=== PATIENT | female | born 1970 | race Hispanic/Latino ===

== ENCOUNTER 2017-07-18 14:14 | Emergency (ER) | payer OTHER, SELFPAY ==
--- NOTE | 2017-07-18 15:14 | RAD ---
FRONTAL RADIOGRAPH OF CHEST: Date: 07/18/17 COMPARISON: 02/17/17. HISTORY: Body aches with dysuria, headache, and chest pain. FINDINGS: No pneumothorax or pleural fluid. No focal consolidation or alveolar edema. Heart and mediastinal con tours are unremarkable. Osseous structures are unremarkable. IMPRESSION: No acute findings. POS: [facility]
[2017-07-18 15:15] LABS: Clarity Cloudy (Clear)
[2017-07-18 15:16] LABS: Bilirubin Small (Negative); Blood, Urine Negative (Negative); Glucose, Urine (Dipstick) 100 mg/dL (Negative); Leukocyte Trace (Negative); Nitrite Positive (Negative); Protein, Urine (Dipstick) 100 mg/dL (Neg-Trace); Specific Gravity, Urine 1.025 (1.002-1.036)
[2017-07-18 15:27] LABS: #Eosinphils 0.2 thou/uL (0.0-0.7); #Lymphocytes 3.2 thou/uL (1.20-3.40); #Monocytes 0.7 thou/uL (0.11-0.59); #Neutrophils 8.8 thou/uL (1.40-6.50); %Basophils 0.3 % (0.0-1.0); %Eosinophils 1.7 % (0.0-10.0); %Lymphocytes 24.8 % (21.0-51.0); %Monocytes 5.1 % (0.0-10.0); %Neutrophils 68.2 % (42.0-75.0); Hemoglobin 14.7 g/dL (12.0-16.0); Mean Corpuscular HGB CONC 32.5 g/dL (32.0-36.0); Mean Corpuscular Hemoglobin 27.9 pg (27.0-31.0); Mean Corpuscular Volume 85.9 fl (81.0-99.0); Mean Platelet Volume 7.6 fL (7.4-10.4); Platelet Count 291 thou/uL (130-400); RBC Distribution Width 12.8 % (11.5-14.5); Red Blood Cell (RBC) Count 5.26 mill/uL (4.20-5.40); White Blood Cell (WBC) Count 12.9 thou/uL (4.8-10.8)
[2017-07-18 15:34] LABS: Bacteria/HPF 4+ HPF (None Seen); Hyaline Casts/LPF 7-10 HYALINE CAST LPF (0-3 Hyaline); Pathc Cast-AUWi Flag 1.62 (0-2.49)
[2017-07-18] MEDS ORDERED: diphenhydrAMINE 50 MG/ML VIAL ONE (15:44)
[2017-07-18] MEDS ORDERED: Metoclopramide HCl 10 MG/2 ML VIAL ONE (15:44)
[2017-07-18] MEDS ORDERED: Ketorolac Tromethamine 30 MG/ML VIAL ONE (15:44)
[2017-07-18 15:50] LABS: ALT (SGPT) 17 U/L (8-55); AST (SGOT) 12 U/L (5-34); Albumin 3.3 g/dL (3.5-5.0); Alkaline Phosphatase 103 U/L (40-150); Anion Gap 12 mmol/L (10-20); BUN (Urea Nitrogen) 21 mg/dL (7.0-18.7); Bilirubin, Total 0.4 mg/dL (0.2-1.2); CK (CPK) 44 U/L (29-168); Calc. Creatinine Clearance 0 mL/min (70-130); Calcium 9.1 mg/dL (7.8-10.44); Carbon Dioxide 24 mmol/L (22-29); Chloride 103 mmol/L (98-107); Estimated GFR-MDRD 84; Globulin 3.5 g/dL (2.4-3.5); Glucose 206 mg/dL (70-105); Lipase 14 U/L (8-78); Protein, Total 6.8 g/dL (6.0-8.3); Sodium 135 mmol/L (136-145)
[2017-07-18 15:54] LABS: Troponin I Less than 0.010 ng/mL (< 0.028)
[2017-07-18] MEDS ORDERED: cefTRIAXone\\ROCEPHIN 2 GM in Sodium Chloride 0.9% 100 ML IVPB SCH (16:00)
== END 2017-07-18 17:21 | disposition home or self-care (01) ==
LOC: ERS 14:14
DX: N30.00 Acute cystitis without hematuria (principal); M79.1 Myalgia; E11.40 Type 2 diabetes mellitus with diabetic neuropathy, unspecified; F32.9 Major depressive disorder, single episode, unspecified; Z87.891 Personal history of nicotine dependence; Z79.4 Long term (current) use of insulin
CPT/HCPCS: 36415; 71045; 80053; 81003; 81015; 82550; 82553; 83690; 84484; 85025; 87077; 87086; 87186; 93005; 96361; 96365; 96375; J0696; J1200; J1885; J2765; J7050

== ENCOUNTER 2017-08-03 16:49 | Emergency (ER) | payer SELFPAY ==
[2017-08-03] MEDS ORDERED: Ondansetron ODT 4 MG TAB ONE (18:11)
[2017-08-03 18:13] LABS: #Basophils 0.1 thou/uL (0.0-0.2); #Eosinphils 0.2 thou/uL (0.0-0.7); #Lymphocytes 3.7 thou/uL (1.20-3.40); #Monocytes 0.6 thou/uL (0.11-0.59); #Neutrophils 5.9 thou/uL (1.40-6.50); %Basophils 0.7 % (0.0-1.0); %Eosinophils 2.2 % (0.0-10.0); %Lymphocytes 35.2 % (21.0-51.0); %Monocytes 5.7 % (0.0-10.0); %Neutrophils 56.3 % (42.0-75.0); Hemoglobin 13.8 g/dL (12.0-16.0); Mean Corpuscular HGB CONC 33.2 g/dL (32.0-36.0); Mean Corpuscular Hemoglobin 28.1 pg (27.0-31.0); Mean Corpuscular Volume 84.7 fl (81.0-99.0); Mean Platelet Volume 7.8 fL (7.4-10.4); Platelet Count 285 thou/uL (130-400); RBC Distribution Width 12.5 % (11.5-14.5); Red Blood Cell (RBC) Count 4.89 mill/uL (4.20-5.40); White Blood Cell (WBC) Count 10.5 thou/uL (4.8-10.8)
[2017-08-03] MEDS ORDERED: Pregabalin 50 MG CAP PO SCH (18:15)
[2017-08-03 18:20] LABS: Bilirubin Negative (Negative); Blood, Urine Negative (Negative); Clarity CLEAR (Clear); Glucose, Urine (Dipstick) >=1000 mg/dL (Negative); Leukocyte Negative (Negative); Nitrite Negative (Negative); Protein, Urine (Dipstick) Negative (Neg-Trace); Specific Gravity, Urine 1.021 (1.002-1.036); Urobilinogen 0.2 mg/dL (0.2-1.0); pH, Urine 6.5 (5.0-9.0)
[2017-08-03 18:29] LABS: Anion Gap 13 mmol/L (10-20); BUN (Urea Nitrogen) 12 mg/dL (7.0-18.7); Calc. Creatinine Clearance 0 mL/min (70-130); Calcium 8.8 mg/dL (7.8-10.44); Carbon Dioxide 23 mmol/L (22-29); Chloride 103 mmol/L (98-107); Estimated GFR-MDRD 85; Glucose 326 mg/dL (70-105); Magnesium 1.9 mg/dL (1.6-2.6); Potassium 3.6 mmol/L (3.5-5.1); Sodium 135 mmol/L (136-145)
== END 2017-08-03 19:57 | disposition home or self-care (01) ==
LOC: ERS 16:49
DX: E11.40 Type 2 diabetes mellitus with diabetic neuropathy, unspecified (principal); Z79.4 Long term (current) use of insulin; Z87.891 Personal history of nicotine dependence
CPT/HCPCS: 36415; 36416; 80048; 81003; 83735; 85025; 87077; 87086; 96372; Q0162

== ENCOUNTER 2017-11-29 15:21 | Emergency (ER) | payer SELFPAY ==
[2017-11-29 15:53] LABS: Bilirubin Negative (Negative); Blood, Urine Negative (Negative); Clarity CLEAR (Clear); Glucose, Urine (Dipstick) >=1000 mg/dL (Negative); Leukocyte Negative (Negative); Nitrite Negative (Negative); Protein, Urine (Dipstick) 30 mg/dL (Neg-Trace); Urobilinogen 0.2 mg/dL (0.2-1.0)
[2017-11-29 15:54] LABS: Bacteria/HPF Rare-Few HPF (None Seen); Hyaline Casts/LPF 0-3 HYALINE CAST LPF (0-3 Hyaline); Pathc Cast-AUWi Flag 1.01 (0-2.49); RBC/HPF 0-3 HPF (0-3)
[2017-11-29 15:55] LABS: Specific Gravity, Urine 1.041 (1.002-1.036)
[2017-11-29 15:58] LABS: #Basophils 0.1 thou/uL (0.0-0.2); #Eosinphils 0.2 thou/uL (0.0-0.7); #Lymphocytes 3.7 thou/uL (1.20-3.40); #Monocytes 0.6 thou/uL (0.11-0.59); #Neutrophils 8.8 thou/uL (1.40-6.50); %Basophils 0.8 % (0.0-1.0); %Eosinophils 1.5 % (0.0-10.0); %Lymphocytes 27.8 % (21.0-51.0); %Monocytes 4.6 % (0.0-10.0); %Neutrophils 65.3 % (42.0-75.0); Hemoglobin 13.2 g/dL (12.0-16.0); Mean Corpuscular HGB CONC 33.6 g/dL (32.0-36.0); Mean Corpuscular Hemoglobin 28.1 pg (27.0-31.0); Mean Corpuscular Volume 83.6 fl (81.0-99.0); Mean Platelet Volume 8.5 fL (7.4-10.4); Platelet Count 255 thou/uL (130-400); RBC Distribution Width 12.9 % (11.5-14.5); Red Blood Cell (RBC) Count 4.71 mill/uL (4.20-5.40); White Blood Cell (WBC) Count 13.4 thou/uL (4.8-10.8)
[2017-11-29 16:19] LABS: ALT (SGPT) 17 U/L (8-55); AST (SGOT) 12 U/L (5-34); Albumin 3.6 g/dL (3.5-5.0); Alkaline Phosphatase 113 U/L (40-150); Anion Gap 9 mmol/L (10-20); BUN (Urea Nitrogen) 19 mg/dL (7.0-18.7); Bilirubin, Total 0.5 mg/dL (0.2-1.2); CK (CPK) 54 U/L (29-168); Calc. Creatinine Clearance 0 mL/min (70-130); Calcium 9.1 mg/dL (7.8-10.44); Carbon Dioxide 30 mmol/L (22-29); Chloride 98 mmol/L (98-107); Estimated GFR-MDRD 72; Globulin 3.6 g/dL (2.4-3.5); Glucose 409 mg/dL (70-105); Protein, Total 7.2 g/dL (6.0-8.3); Sodium 133 mmol/L (136-145)
[2017-11-29 16:22] LABS: CKMB 1.2 ng/mL (0-6.6); Troponin I Less than 0.010 ng/mL (< 0.028)
[2017-11-29] MEDS ORDERED: Insulin Regular 300 UNITS/3 ML VIAL ONE (16:54)
[2017-11-29 17:00] LABS: BHCG - Serum Negative (NEGATIVE); Pregs Control Background? CLEAR/WHITE (CLR/WHITE); Pregs Control Bar Appear? YES (CONTROL BAR)
== END 2017-11-29 18:52 | disposition home or self-care (01) ==
LOC: ERS 15:21
DX: E11.65 Type 2 diabetes mellitus with hyperglycemia (principal); E11.40 Type 2 diabetes mellitus with diabetic neuropathy, unspecified; F32.9 Major depressive disorder, single episode, unspecified; Z79.899 Other long term (current) drug therapy; Z79.4 Long term (current) use of insulin
CPT/HCPCS: 36415; 36416; 80053; 81003; 81015; 82010; 82553; 83605; 84484; 84703; 85025; 93005; 94760; 96361; 96374; J1815

== ENCOUNTER 2017-12-14 13:46 | Emergency (ER) | payer SELFPAY ==
[2017-12-14 14:33] LABS: #Basophils 0.1 thou/uL (0.0-0.2); #Eosinphils 0.3 thou/uL (0.0-0.7); #Lymphocytes 3.5 thou/uL (1.20-3.40); #Monocytes 0.6 thou/uL (0.11-0.59); #Neutrophils 10.4 thou/uL (1.40-6.50); %Basophils 0.7 % (0.0-1.0); %Eosinophils 1.8 % (0.0-10.0); %Lymphocytes 23.7 % (21.0-51.0); %Monocytes 3.9 % (0.0-10.0); %Neutrophils 69.9 % (42.0-75.0); Hemoglobin 13.9 g/dL (12.0-16.0); Mean Corpuscular HGB CONC 33.8 g/dL (32.0-36.0); Mean Corpuscular Hemoglobin 27.6 pg (27.0-31.0); Mean Corpuscular Volume 81.8 fl (81.0-99.0); Platelet Count 258 thou/uL (130-400); RBC Distribution Width 13.1 % (11.5-14.5); Red Blood Cell (RBC) Count 5.01 mill/uL (4.20-5.40); White Blood Cell (WBC) Count 14.9 thou/uL (4.8-10.8)
[2017-12-14] MEDS ORDERED: Insulin Regular 300 UNITS/3 ML VIAL ONE (14:37)
[2017-12-14 14:57] LABS: CKMB 0.6 ng/mL (0-6.6); Troponin I Less than 0.010 ng/mL (< 0.028)
[2017-12-14 15:04] LABS: ALT (SGPT) 15 U/L (8-55); AST (SGOT) 12 U/L (5-34); Albumin 3.5 g/dL (3.5-5.0); Alkaline Phosphatase 111 U/L (40-150); Anion Gap 15 mmol/L (10-20); BUN (Urea Nitrogen) 23 mg/dL (7.0-18.7); Bilirubin, Total 0.4 mg/dL (0.2-1.2); Calc. Creatinine Clearance 0 mL/min (70-130); Calcium 8.9 mg/dL (7.8-10.44); Carbon Dioxide 21 mmol/L (22-29); Chloride 99 mmol/L (98-107); Estimated GFR-MDRD 53; Globulin 3.5 g/dL (2.4-3.5); Glucose 439 mg/dL (70-105); Potassium 4.3 mmol/L (3.5-5.1); Sodium 131 mmol/L (136-145)
--- NOTE | 2017-12-14 15:21 | CT ---
CT HEAD NONCONTRAST: HISTORY: Syncope. COMPARISON: 02/01/17. FINDINGS: There is no evidence of acute intracranial hemorrhage or infarct. Ventricles appear normal in size, shape, and position. There is no mass effect or shift of midline structures. Visualized paranasal s inuses remain well aerated. IMPRESSION: No acute intracranial abnormalities are demonstrated on noncontrast CT head. POS: [facility]
[2017-12-14 16:32] LABS: Bilirubin Negative (Negative); Blood, Urine Negative (Negative); Clarity CLEAR (Clear); Glucose, Urine (Dipstick) >=1000 mg/dL (Negative); Leukocyte Negative (Negative); Nitrite Negative (Negative); Protein, Urine (Dipstick) Trace mg/dL (Neg-Trace); Specific Gravity, Urine 1.036 (1.002-1.036); Urobilinogen 0.2 mg/dL (0.2-1.0)
[2017-12-14 16:35] LABS: Pregnancy Test - Urine (BHCG) Negative (Negative); Pregu Control Background? CLEAR/WHITE (CLR/WHITE); Pregu Control Bar Appear? YES (CONTROL BAR); Specific Gravity 1.036 (1.002-1.036)
== END 2017-12-14 17:47 | disposition home or self-care (01) ==
LOC: ERS 13:46
DX: E11.65 Type 2 diabetes mellitus with hyperglycemia (principal); R55 Syncope and collapse; E11.40 Type 2 diabetes mellitus with diabetic neuropathy, unspecified; G43.909 Migraine, unspecified, not intractable, without status migrainosus; F32.9 Major depressive disorder, single episode, unspecified; F17.210 Nicotine dependence, cigarettes, uncomplicated; Z79.4 Long term (current) use of insulin; Z79.899 Other long term (current) drug therapy
CPT/HCPCS: 36415; 36416; 70450; 80053; 81003; 81025; 82010; 82553; 84484; 85025; 93005; 96361; 96372; 96374; J1815

== ENCOUNTER 2018-11-28 22:08 | Inpatient (IN) | payer SELFPAY ==
[~2018-11-28 22:08] MED LIST: ISOVUE-370 76%-LOCM 1 ML ONE
[2018-11-28] MEDS ORDERED: Ondansetron PF 4 MG/2 ML Vial ONE (22:33)
[2018-11-28] MEDS ORDERED: Morphine 4 MG/ML VIAL ONE ×2 (22:33→23:29)
[2018-11-28 23:01] LABS: BHCG - Serum Negative (NEGATIVE); Pregs Control Background? CLEAR/WHITE (CLR/WHITE); Pregs Control Bar Appear? YES (CONTROL BAR)
[2018-11-28 23:06] LABS: ALT (SGPT) 43 U/L (8-55); AST (SGOT) 44 U/L (5-34); Albumin 3.5 g/dL (3.5-5.0); Alkaline Phosphatase 234 U/L (40-150); Anion Gap 17 mmol/L (10-20); BUN (Urea Nitrogen) 19 mg/dL (7.0-18.7); Bilirubin, Total 0.8 mg/dL (0.2-1.2); Calc. Creatinine Clearance 0 mL/min (70-130); Carbon Dioxide 25 mmol/L (22-29); Chloride 90 mmol/L (98-107); Estimated GFR-MDRD 51; Glucose 423 mg/dL (70-105); Lipase 7 U/L (8-78); Protein, Total 7.5 g/dL (6.0-8.3); Sodium 128 mmol/L (136-145)
[2018-11-28 23:19] LABS: Mean Corpuscular Volume 81.4 fL (78.0-98.0)
[2018-11-28 23:20] LABS: Band 13 % (5-11); Hemoglobin 13.9 g/dL (12.0-16.0); Lymphocytes 14 % (21-51); MDiff Complete? YES; Mean Corpuscular HGB CONC 33.2 g/dL (32.0-36.0); Mean Platelet Volume 8.9 fL (7.4-10.4); Monocytes 3 % (0-10); Neutrophil 70 % (42-75); Platelet Count 252 thou/uL (130-400); Platelet Morphology Comment Appears Adequate; RBC Distribution Width 12.6 % (11.5-14.5); Red Blood Cell (RBC) Count 5.14 mill/uL (4.20-5.40); White Blood Cell (WBC) Count 20.3 thou/uL (4.8-10.8)
--- NOTE | 2018-11-28 23:31 | RAD ---
AP view chest. HISTORY: Chest pain shortness of breath. AP view chest obtained. The lungs are well aerated. No evidence of active intrathoracic disease seen. No evidence of effusions, pneumonia or pneumothorax seen. Impression: Unremarkable AP view chest.
--- NOTE | 2018-11-28 23:39 | CT ---
Noncontrast enhanced images abdomen pelvis. HISTORY: Epigastric pain for 4 days. Noncontrast enhanced images of the abdomen pelvis obtained. Unfortunately IV and oral contrast was not given. This does decrease the sensitivity for detection of pathology. The lung bases are unremarkable. No evidence of free intraperitoneal air seen. The liver and spleen are unremarkable. The gallbladder and pancreas are unremarkable. Adrenal glands unremarkable. The right kidney is unremarkable. The left kidney has a area of midpole asymmetric density with surrounding fat stranding. This may rep resent a subcapsular hematoma or possible infection. Further evaluation using contrast-enhanced CT images recommended when the patient is appropriately premedicated. I cannot exclude hematoma or absce ss in this region correlate with clinical exam, medical history and possible laboratory evaluation. No evidence of renal calculi or evidence of hydronephrosis or obstructing calculi seen. The small bowel is unremarkable. No significant evidence of colonic abnormality seen. IMPRESSION: Mid pole left subcapsular hematoma versus possible infection.
[2018-11-28] MEDS ORDERED: Acetaminophen 500 MG TAB ONE (23:56)
[2018-11-28] MEDS ORDERED: Famotidine/PF 20 mg/2ml Vial ONE (23:56)
[2018-11-28] MEDS ORDERED: diphenhydrAMINE 50 MG/ML VIAL ONE (23:56)
[2018-11-28] MEDS ORDERED: methylPREDNISolone Sod Succ/PF 125 MG/2 ML VIAL ONE (23:56)
[2018-11-28] MEDS ORDERED: Piperacillin/Tazobactam 4.5 GM VIAL ONE (23:56)
[2018-11-29] MEDS ORDERED: Insulin Regular 300 UNITS/3 ML VIAL ONE (00:29)
[2018-11-29 02:26] VITALS: BMI 39.7
[2018-11-29] MEDS ORDERED: Sodium Chloride 0.9% 1,000 ML IV SCH (04:15)
[2018-11-29] MEDS ORDERED: Piperacillin/Tazobactam 4.5 GM in Sodium Chloride 0.9% 100 ML IVPB SCH ×2 (06:00→20:15)
[2018-11-29 06:11] LABS: Bilirubin Negative (Negative); Blood, Urine Moderate (Negative); Clarity CLEAR (Clear); Glucose, Urine (Dipstick) >=1000 mg/dL (Negative); Leukocyte Small (Negative); Nitrite Negative (Negative); Protein, Urine (Dipstick) 100 mg/dL (Neg-Trace)
[2018-11-29 06:15] LABS: Bacteria/HPF Rare-Few HPF (None Seen); Hyaline Casts/LPF 0-3 HYALINE CAST LPF (0-3 Hyaline); Specific Gravity, Urine 1.044 (1.002-1.036); Squamous Epithelial 0-3 HPF (0-3); WBC/HPF 21-50 HPF (0-3)
[2018-11-29 06:16] LABS: Urine Culture Reflex Yes Yes
--- NOTE | 2018-11-29 08:19 | ULT ---
RIGHT UPPER QUADRANT ULTRASOUND: Date: 11/28/18 INDICATION: Fever and right upper quadrant pain. COMPARISON: CT abdomen and pelvis dated 11/29/18. FINDINGS: No focal hepatic lesion evident. Visualized pancreas and gallbladder are normal appearing. No sonogra phic Fortune's sign reported. Common bile duct measures 4.4 mm. Right kidney measures 12.3 x 4.5 x 5.2 cm. No focal renal lesion or hydronephrosis is evident. IMPRESSION: No acute sonographic abnormality within the right upper quadrant. POS: [facility]
--- NOTE | 2018-11-29 08:48 | CT ---
PRELIMINARY REPORT/[facility]/EMERGENCY AFTER HOURS PROCEDURE: EXAM: CT Abdomen and Pelvis With Contrast EXAM DATE/TIME: 11/29/2018 12:38 AM CLINICAL HISTORY: 48 years old, female; Abdominal pain; Patient HX: F48 presents sto the ED for evaluation of epigastri c pain onset x4 days ago. PT. Reports associated SOB, cough, and n/v today. PT. Reports chest tightne ss but denies pain. PT. Denies diarrhea. PT. Reports taking ibuprofen without relief TECHNIQUE: Imaging protocol: Axial computed tomography images of the abdomen and pelvis with intravenous contras t. Coronal reformatted images were created and reviewed. COMPARISON: US Gallbladder RUQ 11/28/2018 11:57 PM FINDINGS: ABDOMEN: Liver: Normal. Gallbladder and bile ducts: Normal. Pancreas: Normal. Spleen: Normal. Adrenals: Normal. Kidneys and ureters: 13 mm hypodense focus within the periphery of the right renal upper pole (series 2, image 36), not definitively characterized on this study. 2.7 x 2.0 cm slightly heterogeneous, par tially exophytic lesion arising from the periphery of the left renal mid pole (series 2, image 39), w ith small amount of adjacent slightly hyperdense fluid and stranding. Stomach and bowel: Normal. Appendix: Appendix normal. PELVIS: Bladder: Unremarkable as visualized. Reproductive: Unremarkable as visualized. ABDOMEN and PELVIS: Intraperitoneal space: Normal. No free air. No significant fluid collection. Bones/joints: Multilevel thoracolumbar spine degenerative changes. Bilateral L5 pars defects. Soft tissues: Small fat containing umbilical hernia. Vasculature: Multiple phleboliths within the pelvis. Lymph nodes: Normal. No enlarged lymph nodes. IMPRESSION: 1. 2.7 x 2.0 cm slightly heterogeneous, partially exophytic lesion arising from the periphery of the left renal mid pole (series 2, image 39), with small amount of adjacent slightly hyperdense fluid and stranding. Finding may represent ruptured complicated cyst or possibly renal carcinoma. Recommend fu rther evaluation with dedicated renal ultrasound, CT, or MRI. 2. 13 mm hypodense focus within the periphery of the right renal upper pole (series 2, image 36), not definitively characterized on this study. Recommend further evaluation with dedicated renal ultrasou nd, CT, or MRI. Thank you for allowing us to participate in the care of your patient. Dictated and Authenticated by: Alfred King MD 11/29/2018 1:49 AM Central Time ([place] & [place]) FINAL REPORT EMERGENCY AFTER HOURS CT ABDOMEN AND PELVIS: Date: 11/28/18 IMPRESSION: I agree with the preliminary report provided by [facility]. There are complex lesions involving the left an d right kidneys that require further evaluation. CT evaluation with a multiphase renal mass protocol would be most helpful. Recommend correlation with clinical exam for symptoms and signs of possible py elonephritis and renal abscess. Correlation with urinary laboratories recommended. POS: [facility]
[2018-11-29] MEDS ORDERED: Guaifenesin DM 100-10/5 ML UDCUP PO PRN (08:56)
[2018-11-29] MEDS ORDERED: Dextrose 5% in Water 1,000 ML IV PRN (08:59)
[2018-11-29] MEDS ORDERED: Dextrose 50% Abboject 50 ML SYRINGE SLOW IVP PRN (08:59)
[2018-11-29] MEDS: Ondansetron PF 4 MG/2 ML Vial IVP PRN ×2 (09:36→22:10)
[2018-11-29] MEDS: Sodium Chloride 0.9% 1,000 ML IV SCH ×2 (10:31→20:11)
--- NOTE | 2018-11-29 10:41 | ULT ---
Renal sonogram HISTORY: Fever. Pyelonephritis. Abnormal CT exam. FINDINGS: Right kidney is 13.1 cm in length and left is 12.1 cm. No hydronephrosis. No masses apparen t. Exams correlated with recent CT where abnormality was seen on the kidneys. The area of masslike fluid along the lateral margin of the left kidney is not discernible sonographically. Urinary bladder is incompletely distended. IMPRESSION: No sonographic abnormalities of the kidneys are apparent. For follow-up, CT will be requi red.
--- NOTE | 2018-11-29 11:48 | PDOC.PN ---
- Subjective Encounter Start Date: 11/29/18 Encounter Start Time: 11:47 - Objective Vital Signs & Weight: Vital Signs (12 hours) Temp Pulse Resp BP Pulse Ox 11/29/18 11:00 97.7 F 63 18 109/73 98 11/29/18 07:15 97.8 F 72 18 109/71 96 11/29/18 04:00 97.8 F 75 16 115/74 95 11/29/18 02:34 96 11/29/18 02:26 99.3 F 75 16 114/76 96 Weight Weight 210 lb 9 oz I&O: 11/28/18 11/29/18 11/30/18 06:59 06:59 06:59 Intake Total 1080 Balance 1080 Result Diagrams: 11/28/18 22:37 11/28/18 22:37 Additional Labs: Accuchecks 11/29/18 11/29/18 11/28/18 05:42 01:01 22:37 POC Glucose 454 H 400 H 418 H Dx/Plan - Plan * .
--- NOTE | 2018-11-29 11:52 | PDOC.EVN ---
Event Note - Event Note Event Note: H&P #[id number]
[2018-11-29] MEDS: Acetaminophen 325 MG TAB PO PRN ×2 (12:55→22:10)
[2018-11-29] MEDS: HumaLOG 300 UNITS/3 ML VIAL SC PRN ×3 (12:57→20:15)
[2018-11-29] MEDS ORDERED: HumaLOG 300 UNITS/3 ML VIAL SC SCH (13:00)
[2018-11-29] MEDS: Morphine 2 MG/ML SYRINGE SLOW IVP PRN ×2 (13:24→20:22)
--- NOTE | 2018-11-29 14:09 | RAD ---
EXAM: Single view of the abdomen HISTORY: Abdominal pain COMPARISON: None FINDINGS: Single view of the abdomen shows a nonspecific, nonobstructive bowel gas pattern. No suspi cious calcifications are seen. The bones are unremarkable. IMPRESSION: Unremarkable exam
--- NOTE | 2018-11-29 18:58 | HP ---
ADMITTING COMPLAINT: Fevers and back pain. HISTORY OF PRESENT ILLNESS: This is a 48-year-old female complaining of back pain and fevers. Stated that the symptoms started approximately 2 to 3 days ago, was having it for the first time, has never happened to her before, was admitted to the Internal Medicine team overnight. I am seeing her about 12 hours after admission. is at bedside. The patient was found to have possibly a ruptured cyst in the kidneys, also significantly elevated diabetes. The patient states this has never happened to her before. Denies any other alleviating or aggravating factors. No other complaints. No prior past medical history that she states she is aware of except for high blood pressure, diabetes, and neuropathy. The patient is seen and examined at bedside. is at bedside. All questions answered. ALLERGIES: IODINE. PAST MEDICAL HISTORY: Diabetes, hypertension, hyperlipidemia, neuropathy. SOCIAL HISTORY: Nondrinker and nonsmoker. REVIEW OF SYSTEMS: All systems reviewed pertinent positives in HPI, otherwise negative. HOME MEDICATIONS: See MAR. PHYSICAL EXAMINATION: VITAL SIGNS: Blood pressure 109/73, temperature 97.7, heart rate of 63, respiratory rate of 18, and O2 saturation 98% on room air. GENERAL: The patient is lying in bed. No acute discomfort. Obese. HEENT: Pupils equal, round, and reactive to light and accommodation. Extraocular muscles intact. Oral cavity moist and pink. NECK: Supple, mobile, and nontender thyroid. PULMONARY: Clear to auscultation bilaterally. No respiratory distress. CARDIOVASCULAR: Regular rate and rhythm. S1 and S2. No murmurs, rubs, or gallops appreciated. ABDOMEN: Positive bowel sounds. Rotund, nondistended, nontender. EXTREMITIES: 2+ peripheral pulses. Trace pitting edema noted. LABORATORY DATA: Reviewed. CT scan findings reviewed. ASSESSMENT: 1. Urinary tract infection with sepsis. 2. Leukocytosis. 3. Pseudohyponatremia secondary to hyperglycemia. 4. Diabetes mellitus, uncontrolled. 5. Ruptured cyst versus renal mass. PLAN: Admit the patient to Internal Medicine Team. At this point in time, we will obtain a renal ultrasound, isolated for the kidneys to have the radiologist compare between the kidney ultrasound as well as CT scan of the abdomen. Continue the antibiotics. Cultures were drawn and pending. Labs in the a.m. The patient wishes to remain in full code. Case and plan discussed with the patient and at length. They understood and agreed with this plan. Job ID: [id number]
[2018-11-29] MEDS: Pregabalin 75 MG CAP PO SCH (20:13)
[2018-11-29] MEDS ORDERED: Insulin Glargine 5 UNITS in Pre-Filled Syringe 1 EACH SC SCH (21:00)
[2018-11-29] MEDS ORDERED: Insulin Glargine 10 UNITS in Pre-Filled Syringe 1 EACH SC SCH (21:00)
[2018-11-30] MEDS: Sodium Chloride 0.9% 1,000 ML IV SCH ×3 (04:57→14:46)
[2018-11-30] MEDS: Piperacillin/Tazobactam 4.5 GM in Sodium Chloride 0.9% 100 ML IVPB SCH ×3 (05:20→20:07)
[2018-11-30] MEDS: HumaLOG 300 UNITS/3 ML VIAL SC PRN ×4 (05:21→20:10)
[2018-11-30 06:04] LABS: #Basophils 0.1 thou/uL (0.0-0.2); #Eosinphils 0.1 thou/uL (0.0-0.7); #Lymphocytes 2.8 thou/uL (1.20-3.40); #Monocytes 1.2 thou/uL (0.11-0.59); #Neutrophils 17.3 thou/uL (1.40-6.50); %Basophils 0.3 % (0.0-1.0); %Eosinophils 0.5 % (0.0-10.0); %Lymphocytes 13.2 % (21.0-51.0); %Monocytes 5.7 % (0.0-10.0); %Neutrophils 80.3 % (42.0-75.0); Hemoglobin 10.9 g/dL (12.0-16.0); Mean Corpuscular HGB CONC 33.6 g/dL (32.0-36.0); Mean Corpuscular Hemoglobin 27.8 pg (27.0-31.0); Mean Corpuscular Volume 82.6 fL (78.0-98.0); Mean Platelet Volume 9.4 fL (7.4-10.4); Platelet Count 226 thou/uL (130-400); RBC Distribution Width 12.4 % (11.5-14.5); Red Blood Cell (RBC) Count 3.91 mill/uL (4.20-5.40); White Blood Cell (WBC) Count 21.5 thou/uL (4.8-10.8)
[2018-11-30 06:12] LABS: Anion Gap 13 mmol/L (10-20); BUN (Urea Nitrogen) 15 mg/dL (7.0-18.7); Calc. Creatinine Clearance 134 mL/min (70-130); Calcium 8.1 mg/dL (7.8-10.44); Carbon Dioxide 21 mmol/L (22-29); Chloride 105 mmol/L (98-107); Estimated GFR-MDRD 78; Glucose 314 mg/dL (70-105); Potassium 3.7 mmol/L (3.5-5.1); Sodium 135 mmol/L (136-145)
[2018-11-30] MEDS: Pregabalin 75 MG CAP PO SCH ×2 (08:20→20:08)
[2018-11-30] MEDS: Vancomycin HCl 1.25 GM in Sodium Chloride 0.9% 250 ML 250 ML IVPB SCH ×2 (08:21→22:05)
--- NOTE | 2018-11-30 12:36 | PDOC.PN ---
- Subjective Encounter Start Date: 11/30/18 Encounter Start Time: 12:34 Patient seen and examined, no new issues. States she feels much better. Family at bedside, all questions answered. - Objective Vital Signs & Weight: Vital Signs (12 hours) Temp Pulse Resp BP Pulse Ox 11/30/18 08:25 95 11/30/18 07:17 97.7 F 62 18 98/65 95 Weight Admit Weight 210 lb Weight 210 lb 9 oz I&O: 11/29/18 11/30/18 12/01/18 06:59 06:59 06:59 Intake Total 1080 3420 Balance 1080 3420 Result Diagrams: 11/30/18 05:35 11/30/18 05:35 Additional Labs: Accuchecks 11/30/18 11/30/18 11/30/18 11:33 05:22 00:26 POC Glucose 334 H 329 H 389 H 11/29/18 11/29/18 19:10 16:22 POC Glucose 443 H 525 H Phys Exam - Physical Examination Constitutional: NAD HEENT: PERRLA, moist MMs, sclera anicteric Neck: no nodes, no JVD, supple Respiratory: no wheezing, no rales, no rhonchi Cardiovascular: RRR, no significant murmur, no rub Gastrointestinal: soft, non-tender, no distention Musculoskeletal: no edema, pulses present Dx/Plan (1) Ruptured cyst of kidney Code(s): Q61.00 - CONGENITAL RENAL CYST, UNSPECIFIED Status: Acute (2) Sepsis Code(s): A41.9 - SEPSIS, UNSPECIFIED ORGANISM Status: Acute (3) Urinary tract infection Status: Acute (4) Leukocytosis Code(s): D72.829 - ELEVATED WHITE BLOOD CELL COUNT, UNSPECIFIED Status: Acute - Plan * The patient doesn't appear to have renal cell cancer, multiple images done, I think the patient likely had an infected cyst which may have ruptured, cont current abx for now * cultures pending * WBC high, but patient is symptomatically feeling much better * will repeat labs in AM * advance diet * cont IV abx for now * case and plan d/w patient and at length, they understood and agreed with this plan.
[2018-11-30] MEDS: Morphine 2 MG/ML SYRINGE SLOW IVP PRN ×2 (13:02→20:19)
[2018-11-30] MEDS: Acetaminophen 325 MG TAB PO PRN (18:34)
[2018-11-30] MEDS: Loperamide HCl 2 MG CAP PO PRN (18:34)
[2018-11-30] MEDS: Insulin Glargine 15 UNITS in Pre-Filled Syringe 1 EACH SC SCH (20:08)
[2018-12-01] MEDS: Sodium Chloride 0.9% 1,000 ML IV SCH ×3 (00:11→20:55)
[2018-12-01] MEDS: Piperacillin/Tazobactam 4.5 GM in Sodium Chloride 0.9% 100 ML IVPB SCH (04:52)
[2018-12-01] MEDS: Morphine 2 MG/ML SYRINGE SLOW IVP PRN ×3 (04:52→20:53)
[2018-12-01] MEDS: HumaLOG 300 UNITS/3 ML VIAL SC PRN ×4 (04:55→20:55)
[2018-12-01 06:06] LABS: #Basophils 0.1 thou/uL (0.0-0.2); #Eosinphils 0.2 thou/uL (0.0-0.7); #Lymphocytes 2.8 thou/uL (1.20-3.40); #Monocytes 1.1 thou/uL (0.11-0.59); #Neutrophils 11.1 thou/uL (1.40-6.50); %Basophils 0.5 % (0.0-1.0); %Eosinophils 1.3 % (0.0-10.0); %Monocytes 7.2 % (0.0-10.0); %Neutrophils 72.9 % (42.0-75.0); Hemoglobin 12.3 g/dL (12.0-16.0); Mean Corpuscular HGB CONC 31.7 g/dL (32.0-36.0); Mean Corpuscular Hemoglobin 26.5 pg (27.0-31.0); Mean Corpuscular Volume 83.7 fL (78.0-98.0); Mean Platelet Volume 9.2 fL (7.4-10.4); Platelet Count 245 thou/uL (130-400); RBC Distribution Width 12.5 % (11.5-14.5); Red Blood Cell (RBC) Count 4.63 mill/uL (4.20-5.40); White Blood Cell (WBC) Count 15.2 thou/uL (4.8-10.8)
[2018-12-01 06:27] LABS: Anion Gap 14 mmol/L (10-20); BUN (Urea Nitrogen) 12 mg/dL (7.0-18.7); Calc. Creatinine Clearance 128 mL/min (70-130); Calcium 8.6 mg/dL (7.8-10.44); Carbon Dioxide 23 mmol/L (22-29); Chloride 107 mmol/L (98-107); Estimated GFR-MDRD 74; Glucose 205 mg/dL (70-105); Sodium 141 mmol/L (136-145)
[2018-12-01] MEDS: Pregabalin 75 MG CAP PO SCH ×2 (08:01→20:55)
[2018-12-01] MEDS ORDERED: Potassium Chloride 20 MEQ TAB PO SCH (09:15)
--- NOTE | 2018-12-01 09:20 | PDOC.PN ---
- Subjective Encounter Start Date: 12/01/18 Encounter Start Time: 12:00 Subjective: Patient feeling somewhat better. Still dizzy with movement, poor -: appetite, weak. No fever. No N/V. - Objective MAR Reviewed: Yes Vital Signs & Weight: Vital Signs (12 hours) Temp Pulse Resp BP Pulse Ox 12/01/18 07:13 99.1 F 94 20 138/75 95 Weight Admit Weight 210 lb Weight 210 lb 9 oz I&O: 11/30/18 12/01/18 12/02/18 06:59 06:59 06:59 Intake Total 3420 3520 Balance 3420 3520 Result Diagrams: 12/01/18 05:39 12/01/18 05:39 Additional Labs: Accuchecks 12/01/18 11/30/18 11/30/18 04:57 20:09 16:38 POC Glucose 216 H 328 H 329 H 11/30/18 11:33 POC Glucose 334 H Phys Exam - Physical Examination Constitutional: NAD HEENT: moist MMs Respiratory: no wheezing, no rales, no rhonchi Cardiovascular: RRR, no significant murmur Gastrointestinal: soft, no distention, positive bowel sounds LUQ TTP Neurological: non-focal Psychiatric: normal affect, A&O x 3 Dx/Plan (1) MSSA bacteremia Code(s): R78.81 - BACTEREMIA Status: Acute Comment: 2/2 blood cultures positive, associated with UTI and ruptured renal cyst, will consult Dr. Phillips, adjust antibiotics, obtain ECHO (2) Ruptured cyst of kidney Code(s): Q61.00 - CONGENITAL RENAL CYST, UNSPECIFIED Status: Acute (3) Urinary tract infection Status: Acute Comment: MSSA growing in urine as well (4) Sepsis Code(s): A41.9 - SEPSIS, UNSPECIFIED ORGANISM Status: Acute Comment: leukocytosis improving - Plan cont current plan of care, continue antibiotics ID consult, ECHO to r/o vegetations -: D/C Zosyn, continue Vancomycin * . - Discharge Day Encounter end time: 12:15
[2018-12-01 09:50] LABS: Vancomycin, Trough 21.4 ug/mL
[2018-12-01] MEDS: Vancomycin HCl 1.25 GM in Sodium Chloride 0.9% 250 ML 250 ML IVPB SCH ×2 (10:19→10:22)
[2018-12-01] MEDS ORDERED: Vancomycin HCl 1 GM in Premix Bag 1 BAG IVPB SCH ×2 (10:30→22:00)
[2018-12-01] MEDS: CEFAZOLIN 2 GM in Premix Bag 1 BAG IVPB SCH ×2 (13:48→21:00)
--- NOTE | 2018-12-01 14:47 | CON ---
DATE OF CONSULTATION: 12/01/2018 REASON FOR CONSULTATION: Bacteremia. HISTORY OF PRESENT ILLNESS: A 48-year-old diabetic type 2, who was in her usual state until a week before admission when she developed sudden onset of general malaise, fever, and pain in the left upper quadrant with a significant pleuritic component. The symptoms were restricted to the left side. She did have some low back pain as well, but not much. This sort of pain has persisted throughout until today and has not alleviated. She had some headaches. No visual symptoms, sore throat, odynophagia, or dysphagia. No dyspnea. Mild cough. Every time she coughs, she has quite significant pain in the left upper quadrant and lower anterior part of the anterior chest. No abdominal pain. Otherwise, no dysuria, hematuria, or frequency. No diarrhea. No constipation or bleeding. No other joint symptoms. No neurological symptoms otherwise. PAST MEDICAL HISTORY: Type 2 diabetes, obesity, hypertension, and hyperlipidemia. SOCIAL HISTORY: Never smoker. . Lives in [place]. ALLERGIES: IODINE. MEDICATIONS: Currently: 1. Tylenol. 2. Cefazolin. 3. Glucagon. 4. Insulin. 5. Loperamide. 6. Pregabalin. Zosyn and vancomycin have been discontinued. PHYSICAL EXAMINATION: VITAL SIGNS: T-max 98 to 99.1, blood pressure 96/61, pulse 79, respirations 20, and O2 saturation 96%. SKIN: The patient has a peripheral IV access. GENERAL: She is voiding spontaneously in the toilet. No lymphadenopathy. HEENT: Ocular movements conjugate. Sclerae white. Conjunctivae normal. Pupils are equal. Oral cavity normal. NECK: Supple. No tenderness. No jugular vein distention or thyromegaly. Shoulder joints are normal. Sternoclavicular joints are normal. LUNGS: Symmetric clear breath sounds. S1 and S2, regular rate without murmurs. There is tenderness on palpation of the left upper quadrant and she has a quite a bit of pain when she takes a deep breath with a significant pleuritic component. A little bit of pain in the lumbosacral spine area along the thoracic and cervical spine. No tenderness noted. No other joint involvement noted. Dorsalis pedis is 1+. No edema. Strength in upper and lower extremities is 5/5. Cognitive function appears to be intact. LABORATORY DATA: White cell count is 20.3 and now is 15, platelets 245, hemoglobin is down to 12. Chemistry; sodium was 141, creatinine 0.86. Creatinine was elevated at 1.15 and now is down to this normal level. Glucose was 423 on admission. AST 44, alkaline phosphatase 234, albumin 3.5, globulin 4.0. Urinalysis with 21 to 50 wbc's, protein 100. Vanc trough 21.4. There are 2 sets of blood cultures with methicillin-sensitive Staphylococcus aureus. Urine culture also with the same organism. The urine culture with 25 to 50 CFUs per mL. C. diff was negative. IMAGING STUDIES: Includes a chest x-ray with no remarkable findings. Abdomen and pelvis CT from 11/28 with left kidney with area of midpole asymmetric density and surrounding fat stranding. A repeat abdomen and pelvis CT done this time with contrast shows a 13 mm hypodense focus periphery of right renal upper pole and 2.7 x2 cm heterogeneous exophytic lesion in the periphery of left renal mid pole area. Hyperdense fluid stranding. Renal ultrasound then evaluate any significant lesion. ASSESSMENT: 1. Type 2 diabetes. 2. Methicillin-sensitive Staphylococcus aureus bacteremia. 3. Pain in left upper quadrant with a pleuritic component. 4. Abnormalities noted on abdomen and pelvis CT with a kidney cystic lesion with some inflammatory changes surrounding it. No evidence of lung involvement. DISCUSSION: Differential diagnosis includes kidney abscess with bacteremia due to methicillin-sensitive Staph aureus. This would have to be either ascending route with hematogenous spread from the kidneys or vice versa, a descending infection from an alternate source not yet disclosed and then extension to the kidneys. 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 This other presumed site could be lumbosacral spine area of diskitis or osteomyelitis. It is more likely that she has a primary renal abscess with bacteremia. May consider a lumbosacral spine MRI for completeness sake. Continue cefazolin for 6 weeks. PICC line placement. Endocarditis is another possibility. The echocardiogram was not ordered, so we will go ahead and order an echocardiogram to follow up on that possibility. Job ID: [id number]
[2018-12-01] MEDS: Insulin Glargine 15 UNITS in Pre-Filled Syringe 1 EACH SC SCH (20:54)
[2018-12-02] MEDS: HumaLOG 300 UNITS/3 ML VIAL SC PRN ×3 (06:10→16:54)
[2018-12-02] MEDS: Sodium Chloride 0.9% 1,000 ML IV SCH ×2 (06:10→16:07)
[2018-12-02] MEDS: CEFAZOLIN 2 GM in Premix Bag 1 BAG IVPB SCH ×3 (06:11→21:34)
[2018-12-02] MEDS: Morphine 2 MG/ML SYRINGE SLOW IVP PRN ×3 (06:12→19:33)
[2018-12-02 06:52] LABS: #Basophils 0.1 thou/uL (0.0-0.2); #Eosinphils 0.1 thou/uL (0.0-0.7); #Lymphocytes 3.4 thou/uL (1.20-3.40); #Monocytes 1.4 thou/uL (0.11-0.59); #Neutrophils 9.9 thou/uL (1.40-6.50); %Basophils 0.5 % (0.0-1.0); %Monocytes 9.2 % (0.0-10.0); %Neutrophils 66.3 % (42.0-75.0); Hemoglobin 10.5 g/dL (12.0-16.0); Mean Corpuscular HGB CONC 32.2 g/dL (32.0-36.0); Mean Corpuscular Volume 83.7 fL (78.0-98.0); Mean Platelet Volume 9.1 fL (7.4-10.4); Platelet Count 246 thou/uL (130-400); RBC Distribution Width 12.6 % (11.5-14.5); Red Blood Cell (RBC) Count 3.88 mill/uL (4.20-5.40); White Blood Cell (WBC) Count 14.9 thou/uL (4.8-10.8)
[2018-12-02 07:17] LABS: Anion Gap 13 mmol/L (10-20); BUN (Urea Nitrogen) 16 mg/dL (7.0-18.7); Calc. Creatinine Clearance 60 mL/min (70-130); Calcium 7.9 mg/dL (7.8-10.44); Carbon Dioxide 24 mmol/L (22-29); Chloride 104 mmol/L (98-107); Estimated GFR-MDRD 31; Glucose 208 mg/dL (70-105); Potassium 3.1 mmol/L (3.5-5.1); Sodium 138 mmol/L (136-145)
[2018-12-02] MEDS: Pregabalin 75 MG CAP PO SCH ×2 (08:05→20:27)
--- NOTE | 2018-12-02 09:13 | PDOC.PN ---
- Subjective Encounter Start Date: 12/02/18 Encounter Start Time: 11:00 Subjective: Patient denies fever. Energy level improved. Abdominal pain better. -: Had PICC line placed today. Would like to do outpatient abx infusion if -: possible. - Objective MAR Reviewed: Yes Vital Signs & Weight: Vital Signs (12 hours) Temp Pulse Resp BP Pulse Ox 12/02/18 07:22 98.2 F 75 18 135/81 96 12/02/18 00:00 98.9 F 91 16 110/51 L 93 L Weight Admit Weight 210 lb Weight 210 lb 9 oz I&O: 12/01/18 12/02/18 12/03/18 06:59 06:59 06:59 Intake Total 3520 2160 Balance 3520 2160 Result Diagrams: 12/02/18 04:18 12/02/18 04:18 Additional Labs: Accuchecks 12/02/18 12/01/18 12/01/18 05:59 20:45 15:57 POC Glucose 218 H 291 H 323 H 12/01/18 11:27 POC Glucose 230 H Phys Exam - Physical Examination Constitutional: NAD HEENT: moist MMs Respiratory: no wheezing, no rales, no rhonchi Cardiovascular: RRR, no significant murmur, no rub Gastrointestinal: soft, positive bowel sounds Neurological: non-focal Psychiatric: normal affect, A&O x 3 Dx/Plan (1) MSSA bacteremia Code(s): R78.81 - BACTEREMIA Status: Acute Comment: 2/2 blood cultures positive, associated with UTI and ruptured renal cyst, consulted Dr. Phillips, adjust antibiotics, obtain ECHO, will need PICC and Cefazolin or Rocephin for 6 weeks (2) Ruptured cyst of kidney Code(s): Q61.00 - CONGENITAL RENAL CYST, UNSPECIFIED Status: Acute (3) Urinary tract infection Status: Acute Comment: MSSA growing in urine as well (4) Sepsis Code(s): A41.9 - SEPSIS, UNSPECIFIED ORGANISM Status: Acute Comment: leukocytosis improving - Plan cont current plan of care, continue antibiotics, DVT proph w/SCDs Appreciate Dr. Phillips' imput -: Awaiting ECHO results and outpatient IV abx arrangements * . - Discharge Day Encounter end time: 11:15
--- NOTE | 2018-12-02 16:46 | SPC ---
Ultrasound-guidedrightupper extremity PICC placement: 09/30/2018 HISTORY: Renal infection in need of IV antibiotics FINDINGS: Informed consent obtained prior to the procedure. Left antecubital fossa was initially prepped and draped in normal sterile fashion. Skin overlying the left cephalic vein was anesthetized with 1% buffered lidocaine and vascular access was obtained with ultrasound guidance. A vascular wire was advanced but would not extend centrally. The wire would curl in the subclavian region and then extended in a retrograde fashion into the left axillary vein. The left basilic and left brachial vein or too small for access and thus, attention was turned to the right upper extremity. Right antecubital fossa was prepped and draped in normal sterile fashion Skin overlying theright basilicvein anesthetized with 1% buffered lidocaine. With direct sonographic guidance, vascular access is obtained via the right basilicvein and an 0.018in wire was advanced to the cavoatrial junction. Intravascular length is calculated at 37 cm and of the PICC is cut according ly. Needle is removed and replaced with a peel-away sheath. The PICC was advanced over the wire. Wire and peel-away sheath were removed. The tip of the catheter overlies the cavoatrial junction. The port flushes well and the catheter is ready for use. Exposure data: 2.1 minutes of fluoroscopic time 9120 mGy per centimeter squared IMPRESSION: Successful ultrasound guided placement of a rightupper extremity PICC.
[2018-12-02] MEDS: Insulin Glargine 15 UNITS in Pre-Filled Syringe 1 EACH SC SCH (20:29)
[2018-12-02] MEDS ORDERED: traMADol HCl 50 MG TAB PO SCH (22:30)
[2018-12-03 05:13] LABS: #Eosinphils 0.3 thou/uL (0.0-0.7); #Lymphocytes 3.1 thou/uL (1.20-3.40); #Monocytes 1.1 thou/uL (0.11-0.59); #Neutrophils 9.4 thou/uL (1.40-6.50); %Basophils 0.3 % (0.0-1.0); %Eosinophils 2.1 % (0.0-10.0); %Lymphocytes 22.6 % (21.0-51.0); %Monocytes 7.6 % (0.0-10.0); %Neutrophils 67.5 % (42.0-75.0); Hemoglobin 9.4 g/dL (12.0-16.0); Mean Corpuscular Hemoglobin 26.8 pg (27.0-31.0); Mean Corpuscular Volume 83.7 fL (78.0-98.0); Mean Platelet Volume 8.2 fL (7.4-10.4); Platelet Count 258 thou/uL (130-400); RBC Distribution Width 12.5 % (11.5-14.5); White Blood Cell (WBC) Count 13.9 thou/uL (4.8-10.8)
[2018-12-03 05:22] LABS: Anion Gap 10 mmol/L (10-20); BUN (Urea Nitrogen) 17 mg/dL (7.0-18.7); Calc. Creatinine Clearance 46 mL/min (70-130); Carbon Dioxide 25 mmol/L (22-29); Chloride 106 mmol/L (98-107); Estimated GFR-MDRD 23; Glucose 222 mg/dL (70-105); Sodium 138 mmol/L (136-145)
[2018-12-03] MEDS: CEFAZOLIN 2 GM in Premix Bag 1 BAG IVPB SCH ×3 (05:22→21:00)
[2018-12-03] MEDS: traMADol HCl 50 MG TAB PO PRN ×4 (05:24→20:59)
[2018-12-03] MEDS: HumaLOG 300 UNITS/3 ML VIAL SC PRN ×4 (05:28→20:10)
[2018-12-03] MEDS: Sodium Chloride 0.9% 1,000 ML IV SCH ×4 (06:51→16:30)
[2018-12-03] MEDS: Pregabalin 75 MG CAP PO SCH ×2 (08:31→20:09)
--- NOTE | 2018-12-03 09:03 | PDOC.PN ---
- Subjective Encounter Start Date: 12/03/18 Encounter Start Time: 12:00 Subjective: Patient with improved pain. Urinating alot. No fever. No rash. - Objective MAR Reviewed: Yes Vital Signs & Weight: Vital Signs (12 hours) Temp Pulse Resp BP Pulse Ox 12/03/18 08:00 96 12/03/18 07:21 98.8 F 72 16 90/60 96 Weight Admit Weight 210 lb Weight 210 lb 9 oz I&O: 12/02/18 12/03/18 12/04/18 06:59 06:59 06:59 Intake Total 2160 5900 Balance 2160 5900 Result Diagrams: 12/03/18 04:52 12/03/18 04:52 Additional Labs: Accuchecks 12/03/18 12/02/18 12/02/18 05:26 19:37 15:58 POC Glucose 211 H 182 H 207 H 12/02/18 11:18 POC Glucose 245 H Phys Exam - Physical Examination Constitutional: NAD HEENT: moist MMs Respiratory: no wheezing, no rales, no rhonchi, clear to auscultation bilateral Cardiovascular: RRR, no significant murmur Gastrointestinal: soft, positive bowel sounds Neurological: non-focal, moves all 4 limbs Psychiatric: normal affect, A&O x 3 Skin: no rash, normal turgor Dx/Plan (1) MSSA bacteremia Code(s): R78.81 - BACTEREMIA Status: Acute Comment: 2/2 blood cultures positive, associated with UTI and ruptured renal cyst, consulted Dr. Phillips, adjust antibiotics, obtain ECHO, will need PICC and Cefazolin or Rocephin for 6 weeks (2) Ruptured cyst of kidney Code(s): Q61.00 - CONGENITAL RENAL CYST, UNSPECIFIED Status: Acute (3) Urinary tract infection Status: Acute Comment: MSSA growing in urine as well (4) Sepsis Code(s): A41.9 - SEPSIS, UNSPECIFIED ORGANISM Status: Acute Comment: leukocytosis improving (5) Acute renal failure Status: Acute Comment: creatinine with significant jump, spoke with Dr. Jenkins and he is concerned about the possibility of interstitial nephritis due to the betalactam, spoke with Dr. Phillips and he thinks it is too early, likely due to the bacteremia, urine eosinophils sent, continuing Ancef for now and will monitor kidney function closely - Plan cont current plan of care, continue antibiotics hold on discharge for now * . - Discharge Day Encounter end time: 12:10
[2018-12-03] MEDS ORDERED: Potassium Chloride 20 MEQ TAB PO SCH (09:15)
--- NOTE | 2018-12-03 10:31 | ULT ---
ULTRASOUND RENAL: DATE: 12/03/2018 HISTORY: Acute kidney injury. Rule out obstruction in 48-year-old female. FINDINGS: Right kidney: 12 x 5 x 6.5 cm Left kidney: 12 x 6 x 6.5 cm. No hydronephrosis. The renal lesions demonstrated on the recent abdominal CT are not visible on this ultrasound. Unremarkable urinary bladder with 200 mL volume. IMPRESSION: Negative renal ultrasound
--- NOTE | 2018-12-03 10:34 | CON ---
DATE OF CONSULTATION: 12/03/2018 CONSULTING PHYSICIAN: Dr. Craven. REASON FOR CONSULT: Acute kidney injury. REASON FOR ADMISSION: Fever. HISTORY OF PRESENT ILLNESS: A 48-year-old female with history of type 2 diabetes and hypertension, came to the hospital with back pain and fever and is being evaluated for pyelonephritis and is being treated with cefazolin. She was found to have elevated creatinine. Her creatinine on admission on 11/28 through 12/01 was around 0.8 and this morning, was found to be 2.3. She is making urine. No nausea or vomiting. No significant hypotensive episodes. No other medication changes reported. PAST MEDICAL HISTORY: Positive for type 2 diabetes, hypertension, hyperlipidemia, and neuropathy. PAST SURGICAL HISTORY: and cyst removal from left shoulder. HOME MEDICATIONS: Include: 1. Insulin. 2. Ibuprofen. 3. Glyburide. 4. Lyrica. ALLERGIES: TO IODINATED CONTRAST AND MILK PRODUCTS. SOCIAL HISTORY: No smoking, alcohol, or illicit drug abuse. FAMILY HISTORY: No history of kidney disease. REVIEW OF SYSTEMS: CONSTITUTIONAL: Negative for weight loss or gain, ability to conduct usual activities. SKIN: Negative for rash, itching. EYES: Negative for double vision, pain. ENT/MOUTH: Negative for nose bleeding, neck stiffness, pain, tenderness. CARDIOVASCULAR: Negative for palpitations, dyspnea on exertion, orthopnea. RESPIRATORY: Negative for shortness of breath, wheezing, cough, hemoptysis, fever or night sweats. GASTROINTESTINAL: Negative for poor appetite, abdominal pain, heartburn, nausea, vomiting, constipation, or diarrhea. GENITOURINARY: Negative for urgency, frequency, dysuria, nocturia. MUSCULOSKELETAL: Negative for pain, swelling. NEUROLOGIC/PSYCHIATRIC: Negative for anxiety, depression. ALLERGY/IMMUNOLOGIC: Negative for skin rash, bleeding tendency. PHYSICAL EXAMINATION: GENERAL: Reveals an obese female, in no apparent distress. VITAL SIGNS: Temperature 98.8, pulse 72, respiratory rate 16, blood pressure 113/74. HEENT: Atraumatic, normocephalic. Oral mucosa is moist. NECK: Supple. CARDIOVASCULAR: S1, S2 heard. Rate and rhythm regular. RESPIRATORY: Clear. GASTROINTESTINAL: Abdomen is soft. MUSCULOSKELETAL: 1+ edema. DERMATOLOGIC: No skin rash. NEUROLOGIC: Alert and awake. PSYCHIATRIC: Mood and affect normal. LABORATORY DATA: Hemoglobin is 9.4. Potassium is 3.0, BUN is 17, and creatinine is 2.3. ASSESSMENT AND PLAN: 1. Acute kidney injury, most likely acute interstitial nephritis related to the medications. I would encourage stopping the cefazolin at this point and monitor. She is having nonoliguric acute kidney injury with slight eosinophilia. We will check urine eosinophils. 2. Hypokalemia. Replace and monitor. 3. Edema, controlled. 4. Anemia, mild. 5. Leukocytosis, better. Follow with ID. We would recommend changing the cefazolin if possible. We will monitor renal function. No acute indication for steroids or dialysis at this point. We will continue to monitor. Thank you for the consult. Job ID: [id number]
[2018-12-03 12:32] LABS: Bilirubin Negative (Negative); Blood, Urine Large (Negative); Clarity CLOUDY (Clear); Glucose, Urine (Dipstick) Negative (Negative); Leukocyte Small (Negative); Nitrite Negative (Negative); Protein, Urine (Dipstick) 30 mg/dL (Neg-Trace); Specific Gravity, Urine 1.007 (1.002-1.036); Urobilinogen 0.2 mg/dL (0.2-1.0); pH, Urine 5.5 (5.0-9.0)
[2018-12-03 12:48] LABS: Bacteria/HPF None Seen HPF (None Seen); Hyaline Casts/LPF 0-3 HYALINE CAST LPF (0-3 Hyaline); RBC/HPF 21-50 HPF (0-3); Squamous Epithelial 0-3 HPF (0-3); Transitional Epithelial 0-3 HPF (0-3)
[2018-12-03 13:07] LABS: Reflex for Review? - EOS YES
--- NOTE | 2018-12-03 17:30 | PRG ---
DATE OF SERVICE: 12/03/2018 SUBJECTIVE: Feeling better. Less pain in the left side. No cough. No genitourinary symptoms. OBJECTIVE: VITAL SIGNS: Normal. LUNGS: Clear. HEART: S1 and S2, regular rate. ABDOMEN: Soft, less tenderness. LABORATORY DATA: White cell count down to 13.9, hemoglobin 9.4, and platelets 258. Creatinine is at 2.31, which is higher than previous. The cultures with Staphylococcus aureus. ASSESSMENT AND DISCUSSION: Type 2 diabetes, methicillin-sensitive Staphylococcus aureus bacteremia, and kidney abscess. Now, she has acute renal failure, probably due to the bacteremia. Too short of an administration period of Ancef to think of interstitial nephritis. Interstitial nephritis is quite rare in comparison with the usual hemodynamically mediated renal insufficiency associated with bacteremia such as the one that the patient has. Continue cefazolin. She has a PICC line in place and we will continue with treatment for a protracted period of time, and date of therapy is calculated around January 14 approximately. Job ID: [id number]
[2018-12-03] MEDS: Insulin Glargine 15 UNITS in Pre-Filled Syringe 1 EACH SC SCH (20:09)
[2018-12-03] MEDS: Loperamide HCl 2 MG CAP PO PRN (22:21)
[2018-12-04] MEDS: traMADol HCl 50 MG TAB PO PRN ×2 (04:38→12:27)
[2018-12-04] MEDS: CEFAZOLIN 2 GM in Premix Bag 1 BAG IVPB SCH ×2 (05:41→13:48)
[2018-12-04] MEDS: HumaLOG 300 UNITS/3 ML VIAL SC PRN ×2 (05:41→12:29)
[2018-12-04 05:55] LABS: #Basophils 0.1 thou/uL (0.0-0.2); #Eosinphils 0.5 thou/uL (0.0-0.7); #Monocytes 1.1 thou/uL (0.11-0.59); %Basophils 0.6 % (0.0-1.0); %Eosinophils 3.6 % (0.0-10.0); %Monocytes 8.3 % (0.0-10.0); %Neutrophils 65.6 % (42.0-75.0); Hemoglobin 10.3 g/dL (12.0-16.0); Mean Corpuscular HGB CONC 30.7 g/dL (32.0-36.0); Mean Corpuscular Hemoglobin 25.9 pg (27.0-31.0); Mean Corpuscular Volume 84.2 fL (78.0-98.0); Mean Platelet Volume 8.6 fL (7.4-10.4); Platelet Count 317 thou/uL (130-400); RBC Distribution Width 12.6 % (11.5-14.5); Red Blood Cell (RBC) Count 3.99 mill/uL (4.20-5.40); White Blood Cell (WBC) Count 13.6 thou/uL (4.8-10.8)
[2018-12-04 06:13] LABS: Anion Gap 11 mmol/L (10-20); BUN (Urea Nitrogen) 16 mg/dL (7.0-18.7); Calc. Creatinine Clearance 47 mL/min (70-130); Calcium 8.3 mg/dL (7.8-10.44); Carbon Dioxide 26 mmol/L (22-29); Chloride 105 mmol/L (98-107); Estimated GFR-MDRD 23; Glucose 256 mg/dL (70-105); Potassium 3.2 mmol/L (3.5-5.1); Sodium 139 mmol/L (136-145)
[2018-12-04] MEDS: Pregabalin 75 MG CAP PO SCH (08:26)
--- NOTE | 2018-12-04 11:34 | PRG ---
DATE OF SERVICE: 12/04/2018 SUBJECTIVE: Patient was seen and examined at bedside and overnight events noted. Patient denies any shortness of breath or chest pain or palpitation. No history of nausea or vomiting or diarrhea or fever or chills or cramps. OBJECTIVE: GENERAL: This is a well-built female, in no acute distress. VITAL SIGNS: Temperature 98.5. Heart rate 74. Respiratory rate . Blood pressure . HEENT: Atraumatic, normocephalic. Oral mucosa is moist NECK: Supple. CARDIOVASCULAR: S1, S2 heard. Rate and rhythm regular. RESPIRATORY: Clear to auscultation. GASTROINTESTINAL: Abdomen is soft. MUSCULOSKELETAL: No tenderness. No edema. DERMATOLOGIC: No skin rash. NEUROLOGIC: Alert and awake and oriented X3. No focal neurologic deficits. Moving all the extremities. PSYCHIATRIC: Mood and affect normal. LABORATORY DATA: Potassium 3.2, BUN is 16, creatinine is 2.2. ASSESSMENT AND PLAN: 1. Acute kidney injury with improvement in renal function. Cefazolin was continued per recommendation from ID. Urine eosinophils were negative. We will continue on hydration and avoid nephrotoxins. We will follow renal function closely. 2. Hypokalemia, replace and monitor. 3. Edema, controlled. 4. Anemia. 5. Leukocytosis. 6. We will continue close monitoring of renal function. Job ID: [id number]
[2018-12-04] MEDS: Sodium Chloride 0.9% 1,000 ML IV SCH (12:25)
--- NOTE | 2018-12-04 12:53 | PDOC.PN ---
- Subjective Encounter Start Date: 12/04/18 Encounter Start Time: 10:00 Subjective: is seen ambulating in hallway, no sob or abd pain -: feels better, tolerating oral diet - Objective MAR Reviewed: Yes Vital Signs & Weight: Vital Signs (12 hours) Temp Pulse Resp BP Pulse Ox 12/04/18 08:27 95 12/04/18 07:18 98.5 F 74 16 102/67 95 Weight Admit Weight 210 lb Weight 210 lb 9 oz I&O: 12/03/18 12/04/18 12/05/18 06:59 06:59 06:59 Intake Total 5900 4560 Balance 5900 4560 Result Diagrams: 12/04/18 04:41 12/04/18 04:41 Additional Labs: Accuchecks 12/04/18 12/04/18 12/03/18 11:33 04:34 19:26 POC Glucose 230 H 257 H 213 H 12/03/18 16:14 POC Glucose 247 H Phys Exam - Physical Examination HEENT: PERRLA, moist MMs Neck: no JVD, supple Respiratory: no wheezing, no rales Cardiovascular: RRR, no significant murmur Gastrointestinal: soft, non-tender, positive bowel sounds Musculoskeletal: no edema, pulses present Neurological: non-focal, moves all 4 limbs Psychiatric: normal affect, A&O x 3 Dx/Plan (1) MSSA bacteremia Code(s): R78.81 - BACTEREMIA Status: Acute Comment: 2/2 blood cultures positive, associated with UTI and ruptured renal cyst, consulted Jazlyn Jordan for 6 weeks (2) Urinary tract infection Status: Acute Comment: MSSA growing in urine as well (3) Sepsis Code(s): A41.9 - SEPSIS, UNSPECIFIED ORGANISM Status: Acute Qualifiers: Sepsis type: methicillin susceptible Staphylococcus aureus Qualified Code(s ): A41.01 - Sepsis due to Methicillin susceptible Staphylococcus aureus Comment: leukocytosis improving (4) Acute renal failure Status: Acute (5) DM type 2 (diabetes mellitus, type 2) Status: Chronic Qualifiers: Diabetes mellitus prison insulin use: with prison use Diabetes mellitus complication status: with neurologic complications Diabetes mellitus complication detail: with polyneuropathy Qualified Code(s): E11.42 - Type 2 diabetes mellitus with diabetic polyneuropathy; Z79.4 - custodial (current) use of insulin (6) Chronic anemia Code(s): D64.9 - ANEMIA, UNSPECIFIED Status: Chronic - Plan hemostable -: outpt rocephin has been arranged by jazlyn MORELAND x 6 weeks -: d/w , she needs to see him in 1 week -: weekly labs as adv by -: meds reconciled for dc, d/w patient about current plan * . Review of Systems - Medications/Allergies Allergies/Adverse Reactions: Allergies Allergy/AdvReac Type Severity Reaction Status Date / Time iodine Allergy Unknown Hives Verified 11/29/18 02:28 Iodinated Contrast- Oral and Allergy Hives Verified 11/29/18 02:28 IV Dye milk Allergy Verified 11/29/18 11:11 Milk Containing Products Allergy Verified 11/29/18 11:11 Medications: Current Medications Acetaminophen (Tylenol) 650 mg PO Q4H PRN PRN Reason: Headache/Fever/Mild Pain (1-3) Last Admin: 11/30/18 18:34 Dose: 650 mg Dextrose/Water (Dextrose 50%) 25 gm SLOW IVP PRN PRN PRN Reason: Hypoglycemia Glucagon (Glucagon) 1 mg IM PRN PRN PRN Reason: Hypoglycemia Guaifenesin/Dextromethorphan (Robitussin Dm) 15 ml PO Q4H PRN PRN Reason: Cough Dextrose/Water (D5w) 1,000 mls @ 0 mls/hr IV .Q0M PRN PRN Reason: Hypoglycemia Insulin Glargine 15 units/ (Miscellaneous Medication) 0.15 mls @ 0 mls/hr SC HS [facility] Last Admin: 12/03/18 20:09 Dose: 0.15 mls Cefazolin Sodium/Dextrose 2 gm (/ Device) 50 mls @ 100 mls/hr IVPB Q8HR [facility] Last Admin: 12/04/18 05:41 Dose: 50 mls Sodium Chloride (Normal Saline 0.9%) 1,000 mls @ 100 mls/hr IV .Q10H [facility] Last Admin: 12/04/18 12:25 Dose: 1,000 mls Insulin Human Lispro (Humalog) 0 units SC .MILD SLIDING SCALE PRN PRN Reason: Mild Correctional Scale Last Admin: 12/04/18 12:29 Dose: 3 unit Insulin Human Lispro (Humalog) 0 units SC .BEDTIME SLIDING SC PRN PRN Reason: Bedtime Correctional Scale Last Admin: 12/03/18 20:10 Dose: 2 unit Loperamide HCl (Imodium) 2 mg PO DAILYPRN PRN PRN Reason: Diarrhea/Loose Stools Last Admin: 12/03/18 22:21 Dose: 2 mg Ondansetron HCl (Zofran) 4 mg IVP Q6H PRN PRN Reason: Nausea/Vomiting Last Admin: 11/29/18 22:10 Dose: 4 mg Pregabalin (Lyrica) 150 mg PO BID [facility]AN Last Admin: 12/04/18 08:26 Dose: 150 mg Sodium Chloride (Flush - Normal Saline) 10 ml IVF Q12HR [facility] Last Admin: 12/04/18 08:27 Dose: 10 ml Sodium Chloride (Flush - Normal Saline) 10 ml IVF PRN PRN PRN Reason: Saline Flush Tramadol HCl (Ultram) 50 mg PO Q6H PRN PRN Reason: Moderate to Severe Pain (6-10) Last Admin: 12/04/18 12:27 Dose: 50 mg
[2018-12-04 16:35] VITALS: BP 139/85; TEMP 97.9
--- NOTE | 2018-12-05 12:24 | DIS ---
DATE OF ADMISSION: 11/29/2018 DATE OF DISCHARGE: 12/04/2018 DISCHARGE DISPOSITION: To home. PRIMARY DISCHARGE DIAGNOSES: 1. Sepsis with urinary tract infection and methicillin-susceptible Staphylococcus aureus bacteremia. 2. Acute renal failure, resolving. SECONDARY DISCHARGE DIAGNOSES: 1. Diabetes mellitus, type 2. 2. Chronic anemia. PROCEDURES DONE DURING HOSPITALIZATION: Right upper quadrant ultrasound done, showed no acute sonographic abnormality, common bile duct was 4.4 mm. Visualized pancreas and gallbladder were normal appearing. No focal renal lesion or hydronephrosis was seen in the right kidney. CT of the abdomen and pelvis without contrast done showed mid-pole left subcapsular hematoma versus possible infection. CT of the abdomen and pelvis with contrast done showed 2.7 x 2 cm slightly heterogeneous partially exophytic lesion arising from the periphery of the left renal mid-pole with small amount of adjacent slightly hyperdense fluid and stranding. Finding may represent a ruptured complicated cyst or possibly renal cell carcinoma. There was 13 mm hypodense focus within the periphery of the right renal upper pole. Echo with 2D Doppler showed ejection fraction of 55% to 60%. Renal ultrasound done on 12/03/2018, showed renal lesions demonstrated on the recent abdominal CT scan were not visible. Urinary bladder volume was 200 mL. This was done on 12/03/2018. She has had a PICC line placed on 11/29/2018. Blood cultures x2 grew Staph aureus, sensitive to all antibiotics except amoxicillin and Zosyn. Urine culture grew Staph aureus with similar sensitivity profile as blood cultures. Stool for Clostridium difficile was negative. She had a white count of 21.5 on the with discharge numbers of 13, H and H 10 and 33, platelet count 317 on the day of discharge, had 13% bands on the day of admission. Her discharge BUN and creatinine are 16 and 2.2. She had a creatinine of 1.1 on the day of admission. Serum bicarb was 26 on the day of discharge. Serum test was negative. One set of troponin was negative. DISCHARGE MEDICATIONS: 1. Ceftriaxone 2 g IV daily until January 11, 2019. 2. NovoLog 70/30 of 14 units subcu twice daily. 3. Lyrica 150 mg daily or half a tablet twice daily. ALLERGIES: ALLERGIC TO IODINE AND MILK-CONTAINING PRODUCTS. INPATIENT CONSULTS: 1. Dr. Jenkins for Nephrology. 2. Dr. Phillips for Infectious Disease. DISCHARGE PLAN: The patient to follow up with Dr. Jenkins in 1 week and also primary care physician in 1 week. She needs weekly CBC, CMP, CRP, and sedimentation rate done as long as she is on antibiotics, ceftriaxone until the 11 of January, the results of which needs to be faxed to Dr. Phillips. BRIEF COURSE DURING HOSPITALIZATION: The patient initially came to ER with complaints of fever and back pain. Her initial workup revealed UTI. There was also suspicion for renal cysts, for which multiple imaging studies were obtained as I have described above. The patient had pyelonephritis with MSSA bacteremia. Two out of two blood cultures grew Staph aureus and a urine culture also grew Staph aureus with similar sensitivity profile. She developed acute kidney injury during her stay here, which is slowly resolving. This likely could be staph-induced kidney injury versus ATN. Her creatinine is slowly trending downwards. She needs close monitoring of her renal function and the patient has been counseled to follow up with Dr. Jenkins in 1 week. She will be requiring weekly labs in view of her being on ceftriaxone and acute kidney injury, the results of which will be faxed to Dr. Phillips for close monitoring of kidney function and liver function while she is on ceftriaxone. Prior to discharge, she is ambulating and eating well. She is tolerating solid food. She is hemodynamically stable and has been counseled to see a primary care physician in a week. Please see a [id number] documentation for the day of discharge on [facility] [employer]. Job ID: [id number] MTDD
== END 2018-12-04 16:32 | disposition home or self-care (01) | DRG 871 ==
LOC: ERS 22:08 → T4-A 11-29 01:33
PROVIDERS: ADMIT Hospitalist; ATTEND Hospitalist
PROC: 02HV33Z Insertion of Infusion Device into Superior Vena Cava, Percutaneous Approach (ICD-10-PCS; principal; 2018-12-02)
PROC: B548ZZA Ultrasonography of Superior Vena Cava, Guidance (ICD-10-PCS; 2018-12-02)
DX: A41.02 Sepsis due to Methicillin resistant Staphylococcus aureus (principal); N15.1 Renal and perinephric abscess; N39.0 Urinary tract infection, site not specified; N17.9 Acute kidney failure, unspecified; N12 Tubulo-interstitial nephritis, not specified as acute or chronic; I10 Essential (primary) hypertension; E78.5 Hyperlipidemia, unspecified; E11.40 Type 2 diabetes mellitus with diabetic neuropathy, unspecified; E11.42 Type 2 diabetes mellitus with diabetic polyneuropathy; E11.65 Type 2 diabetes mellitus with hyperglycemia; N28.1 Cyst of kidney, acquired; E66.9 Obesity, unspecified; E87.6 Hypokalemia; D64.9 Anemia, unspecified; Z79.899 Other long term (current) drug therapy; Z91.041 Radiographic dye allergy status; Z79.4 Long term (current) use of insulin; Z91.011 Allergy to milk products
CPT/HCPCS: 36415; 36416; 36569; 71045; 74018; 74176; 74177; 76705; 76770; 80048; 80053; 80202; 81001; 81003; 81015; 83605; 83690; 84484; 84703; 85025; 85060; 87040; 87077; 87086; 87149; 87186; 87324; 87449; 89190; 93005; 93306; 96361; 96365; 96366; 96368; 96375; C1751; J0690; J1200; J1815; J1825; J2270; J2405; J2543; J2930; J3370; J3490; J7050; Q9966; S0028

== ENCOUNTER 2018-12-09 15:58 | Inpatient (IN) | payer SELFPAY ==
[~2018-12-09 15:58] MED LIST changes: +Heparin 1,000 UNITS/ML VIAL ONE; -ISOVUE-370 76%-LOCM 1 ML ONE
[2018-12-09 18:11] LABS: #Basophils 0.1 thou/uL (0.0-0.2); #Eosinphils 0.2 thou/uL (0.0-0.7); #Lymphocytes 3.1 thou/uL (1.20-3.40); #Monocytes 0.7 thou/uL (0.11-0.59); #Neutrophils 12.3 thou/uL (1.40-6.50); %Basophils 0.4 % (0.0-1.0); %Eosinophils 1.4 % (0.0-10.0); %Monocytes 4.1 % (0.0-10.0); %Neutrophils 75.1 % (42.0-75.0); Hemoglobin 11.9 g/dL (12.0-16.0); Mean Corpuscular Hemoglobin 27.2 pg (27.0-31.0); Mean Corpuscular Volume 82.4 fL (78.0-98.0); Mean Platelet Volume 8.5 fL (7.4-10.4); Platelet Count 378 thou/uL (130-400); RBC Distribution Width 12.6 % (11.5-14.5); Red Blood Cell (RBC) Count 4.39 mill/uL (4.20-5.40); White Blood Cell (WBC) Count 16.4 thou/uL (4.8-10.8)
[2018-12-09] MEDS: Sodium Chloride 0.9% 1,000 ML IV SCH (18:18)
[2018-12-09] MEDS: HYDROcodone/Acetaminophen 5/325 mg Tablet PO PRN (18:20)
[2018-12-09] MEDS: Vancomycin HCl 500 MG in Sodium Chloride 0.9% 100 ML IVPB SCH (18:20)
[2018-12-09] MEDS: Insulin Regular 300 UNITS/3 ML VIAL SC PRN (18:33)
[2018-12-09 18:36] LABS: ALT (SGPT) Less than 7 U/L (8-55); AST (SGOT) 22 U/L (5-34); Albumin 3.1 g/dL (3.5-5.0); Alkaline Phosphatase 121 U/L (40-150); Anion Gap 14 mmol/L (10-20); BUN (Urea Nitrogen) 15 mg/dL (7.0-18.7); Bilirubin, Total 0.3 mg/dL (0.2-1.2); Calc. Creatinine Clearance 72 mL/min (70-130); Calcium 8.7 mg/dL (7.8-10.44); Carbon Dioxide 33 mmol/L (22-29); Chloride 93 mmol/L (98-107); Estimated GFR-MDRD 39; Glucose 385 mg/dL (70-105); Protein, Total 7.1 g/dL (6.0-8.3); Sodium 137 mmol/L (136-145)
[2018-12-09 18:40] LABS: Potassium 2.9 mmol/L (3.5-5.1)
[2018-12-09] MEDS ORDERED: Potassium Chloride 40 MEQ in Sodium Chloride 0.9% 250 ML 250 ML IVPB SCH (19:15)
[2018-12-09] MEDS: Nystatin Powder 15 GM BOT TOP PRN (19:56)
--- NOTE | 2018-12-09 20:08 | HP ---
REASON FOR ADMISSION: Intractable nausea, vomiting, and diarrhea to rule out C. diff. HISTORY OF PRESENTING ILLNESS: The patient gives history of having severe diarrhea from yesterday. It was watery and jelly-like. The patient has had nearly 10 to 12 times of these episodes. She has felt nauseous and could not eat anything from yesterday. She also developed headache. She in fact was sleeping on a towel as the frequency of bowel movement got worse. She took 6 tablets of Imodium, none of which helped to control her diarrhea. From 3:00 in the morning, the patient has been dizzy. She finally came for infusion for ceftriaxone, which she has been scheduled for 6 weeks due to MSSA bacteremia. The patient in fact was discharged on December 04 from here. She has no complaints of chest pain, palpitation, PND, or orthopnea. No fever as such. PAST MEDICAL AND SURGICAL HISTORY: Acute kidney injury from her last admission is resolving, diabetes mellitus type 2, hypertension, dyslipidemia, peripheral neuropathy, MSSA bacteremia with sepsis from last admission, she had urinary tract infection as well growing MSSA, chronic anemia, PICC line placed for ceftriaxone therapy. CURRENT MEDICATIONS: The patient is on Lyrica 150 mg twice daily, ceftriaxone 2 g daily for a total of 6 weeks from December 04, NPH insulin 70 units q.a.m. and 40 units q.p.m. ALLERGIES: ALLERGIC TO IODINE, MILK, AND MILK CONTAINING PRODUCTS. PERSONAL HISTORY: Does not abuse alcohol or drugs. No history of smoking. Lives with her . FAMILY HISTORY: Both parents are living. Both parents have history of diabetes. Father has three-vessel CABG done and has had 4 stents as well. CODE STATUS: Full. Power of tax associate attorney is her . REVIEW OF SYSTEMS: CONSTITUTIONAL: Negative for weight loss or gain, ability to conduct usual activities. SKIN: Negative for rash, itching. EYES: Negative for double vision, pain. ENT/MOUTH: Negative for nose bleeding, neck stiffness, pain, tenderness. CARDIOVASCULAR: Negative for palpitations, dyspnea on exertion, orthopnea. RESPIRATORY: Negative for shortness of breath, wheezing, cough, hemoptysis, fever or night sweats. GASTROINTESTINAL: Negative for poor appetite, abdominal pain, heartburn, nausea , vomiting, constipation, or diarrhea. GENITOURINARY: Negative for urgency, frequency, dysuria, nocturia. MUSCULOSKELETAL: Negative for pain, swelling. NEUROLOGIC/PSYCHIATRIC: Negative for anxiety, depression. ALLERGY/IMMUNOLOGIC: Negative for skin rash, bleeding tendency. PHYSICAL EXAMINATION: GENERAL: The patient is a 48-year-old female who is currently not in any acute distress. VITAL SIGNS: Blood pressure 154/74, pulse 82 per minute, respiratory rate 20 per minute, temperature 97.7 degrees Fahrenheit, saturating 95% on room air. NECK: Supple. No elevated JVD. HEENT: Eyes; extraocular muscles intact. Pupils reacting to light. Oral cavity, mucous membranes are dry. No exudates or congestion. CARDIOVASCULAR: S1 and S2 heard. Regular rhythm. RESPIRATORY: Air entry 1+ bilateral. No rales or rhonchi. ABDOMEN: Soft. Mild tenderness in the epigastric area. Otherwise, no rigidity or guarding. EXTREMITIES: No peripheral edema or calf tenderness. The patient has what appears to be intertrigo in her groin and inguinal areas. Peripheral pulses are 1+ bilateral. No ischemic ulcerations or gangrene. CENTRAL NERVOUS SYSTEM: No gross focal deficits noted. The patient is alert, awake, oriented well. PSYCHIATRIC SYSTEM: The patient's mood is euthymic. No hallucinations or delusions. LABORATORY DATA: White count of 16, hemoglobin and hematocrit 11 and 36, platelet count 378, MCV is 82 with 75% neutrophils. Potassium 2.9, serum bicarb 33, BUN 15, creatinine 1.4, serum glucose 385. Liver enzymes within normal limits. Albumin is 3.1. CLINICAL IMPRESSION AND PLAN: The patient will be under observation on medical floor for severe diarrheal illness with intractable nausea and vomiting and unable to eat. The patient is on antibiotics for methicillin-susceptible Staphylococcus aureus bacteremia and it is unclear if this is due to Clostridium difficile. Stool for Clostridium difficile and cultures will be obtained. She will be gently hydrated with normal saline at 125 mL/hour. The patient is also placed on vancomycin 500 mg IV twice daily. She has gotten a dose of fluconazole 1 dose for a fungal infection in the groin. She will also be on nystatin powder. Potassium will be replaced as this is likely hypokalemia from diarrhea. The patient is on home dose of Humulin here and we will try to closely watch her oral intake due to her nausea and vomiting. Dr. Phillips has evaluated the patient here on the observation floor. We will continue to closely monitor her. A metabolic panel will be obtained in the morning as well. Her acute kidney injury from recent hospitalization has improved dramatically now. If the patient was to worsen with her diarrhea, she will be switched over to inpatient status depending on the course of her stay here. Job ID: [id number] MTDD
[2018-12-09] MEDS: HumuLIN 70/30 (300 UNITS/3 ML VIAL) SC SCH (20:26)
[2018-12-09] MEDS: Pregabalin 75 MG CAP PO SCH (20:28)
--- NOTE | 2018-12-09 23:18 | HP ---
REASON: Diarrhea, abdominal cramps, bacteremia, pyelonephritis. HISTORY OF PRESENT ILLNESS: A 48-year-old, whom I had recently seen in consultation with history of type 2 diabetes and methicillin-sensitive Staphylococcus aureus bacteremia secondary to right kidney abscess. She was treated with IV cefazolin, discharged, and she has developed complications of the treatment including diarrhea with abdominal cramps and perineal intertriginous maceration and erythema. She came to the infusion office in the oncology unit and was a little bit hypotensive, feeling unwell, and therefore we are admitting her for volume repletion. C. diff workup and treatment of the intertriginous eruption and continuation of antimicrobial therapy for the bacteremia with vancomycin. The patient has no medical insurance and is unable to financially afford purchase of medications in the outpatient setting and I thought there was a high risk of deterioration of her medical condition. Currently, she denies headaches. No visual symptoms, sore throat, odynophagia, dysphagia. No vomiting. She has had quite profuse diarrhea for the past 48 hours. No genitourinary symptoms. PAST MEDICAL HISTORY: Type 2 diabetes, obesity, hypertension, hyperlipidemia, recently identified methicillin-sensitive Staphylococcus aureus bacteremia secondary to right kidney abscess. SOCIAL HISTORY: Never smoker. . Lives in [place]. ALLERGIES: IODINE. MEDICATIONS: 1. Insulin NPH. 2. Lyrica. 3. Had been on Rocephin, which she will be switched to vancomycin in the hospital setting. PHYSICAL EXAMINATION: VITAL SIGNS: Blood pressure 150/70, pulse 82, respirations 20, O2 saturation 95%, temperature 97. GENERAL: Appears in distress from abdominal cramps and diarrhea and the perineal maceration and eruption. HEENT: Ocular movements conjugate. Oral cavity normal. NECK: Supple. LUNGS: Symmetric. Clear breath sounds. HEART: S1 and S2. Regular rate. No S3 or S4. ABDOMEN: Soft with mild tenderness. Mild distention. Bowel sounds are increased. RECTAL: Perineal area shows erythema particularly in the right side of the perineal area with some maceration. : No bladder distention. EXTREMITIES: No joint inflammatory activity. She moves extremities equally. Cognitive function appears to be intact. NEUROLOGIC: Nonfocal. LABORATORY DATA: White cell count was 13.6 when last checked and the last chemistry with creatinine 1.77 yesterday. ASSESSMENT: 1. Type 2 diabetes. 2. Pyelonephritis with renal abscess and bacteremia due to methicillin-sensitive Staphylococcus aureus. 3. Diarrhea with possible Clostridium difficile colitis. 4. Intertriginous eruption, probably due to Chanel, which is secondary to the antimicrobials plus the underlying diabetes, dealt with the hospitalist service for consultation and continue vancomycin and IV fluids. Check for C diff. Start oral vancomycin and Diflucan and topical nystatin for the intertriginous macerations/eruption. Job ID: [id number]
[2018-12-10] MEDS: HYDROcodone/Acetaminophen 5/325 mg Tablet PO PRN ×4 (03:45→23:31)
[2018-12-10 04:54] LABS: Anion Gap 13 mmol/L (10-20); BUN (Urea Nitrogen) 20 mg/dL (7.0-18.7); Calc. Creatinine Clearance 76 mL/min (70-130); Calcium 8.3 mg/dL (7.8-10.44); Carbon Dioxide 34 mmol/L (22-29); Chloride 98 mmol/L (98-107); Estimated GFR-MDRD 40; Glucose 117 mg/dL (70-105); Sodium 142 mmol/L (136-145)
[2018-12-10 04:57] LABS: Potassium 2.8 mmol/L (3.5-5.1)
[2018-12-10] MEDS ORDERED: Potassium Chloride 20 MEQ TAB PO SCH ×3 (05:30→17:00)
[2018-12-10] MEDS: Vancomycin HCl 500 MG in Sodium Chloride 0.9% 100 ML IVPB SCH ×2 (06:38→22:05)
[2018-12-10] MEDS ORDERED: Potassium Chloride 40 MEQ in Premix Bag 1 BAG IVPB SCH (07:30)
[2018-12-10] MEDS: Potassium Chloride 20 MEQ in Premix Bag 1 BAG IVPB SCH ×2 (07:43→09:06)
[2018-12-10] MEDS: Potassium Chloride 20 MEQ TAB PO SCH ×3 (07:47→19:48)
[2018-12-10] MEDS: HumuLIN 70/30 (300 UNITS/3 ML VIAL) SC SCH ×2 (07:47→21:19)
[2018-12-10] MEDS: Pregabalin 75 MG CAP PO SCH ×2 (07:47→21:18)
[2018-12-10] MEDS ORDERED: Fluconazole 100 MG TAB PO SCH (09:00)
[2018-12-10] MEDS: Sodium Chloride 0.9% 1,000 ML IV SCH ×2 (11:31→23:27)
--- NOTE | 2018-12-10 11:53 | PDOC.PN ---
- Subjective Encounter Start Date: 12/10/18 Encounter Start Time: 10:15 Subjective: still having diarrhea around 6 times from admission -: no blood in stool -: upper abd pain, no nausea, had her breakfast - Objective Resuscitation Status - Order Detail: 12/09/18 19:19 Resuscitation Status Routine Resuscitation Status: FULL: Full Resuscitation MAR Reviewed: Yes Vital Signs & Weight: Vital Signs (12 hours) Temp Pulse Resp BP Pulse Ox 12/10/18 07:33 97.1 F L 74 16 117/58 L 94 L 12/10/18 03:41 97.3 F L 70 20 122/60 94 L Weight Weight 212 lb 12.8 oz I&O: 12/09/18 12/10/18 12/11/18 06:59 06:59 06:59 Intake Total 1087 Balance 1087 Result Diagrams: 12/09/18 17:59 12/10/18 03:55 Additional Labs: Accuchecks 12/09/18 12/09/18 20:01 17:15 POC Glucose 403 H 345 H Phys Exam - Physical Examination HEENT: PERRLA, moist MMs Neck: no JVD, supple Respiratory: no wheezing, no rales Cardiovascular: RRR, no significant murmur Gastrointestinal: soft, no distention, positive bowel sounds no rigidity or guarding Musculoskeletal: no edema, pulses present Neurological: non-focal, moves all 4 limbs Psychiatric: normal affect, A&O x 3 Dx/Plan (1) Gastroenteritis Code(s): K52.9 - NONINFECTIVE GASTROENTERITIS AND COLITIS, UNSPECIFIED Status : Acute (2) MSSA bacteremia Code(s): R78.81 - BACTEREMIA Status: Acute (3) Hypokalemia Code(s): E87.6 - HYPOKALEMIA Status: Acute (4) HTN (hypertension) Code(s): I10 - ESSENTIAL (PRIMARY) HYPERTENSION Status: Chronic Qualifiers: Hypertension type: essential hypertension Qualified Code(s): I10 - Essential (primary) hypertension (5) Chronic anemia Code(s): D64.9 - ANEMIA, UNSPECIFIED Status: Chronic (6) DM type 2 (diabetes mellitus, type 2) Status: Chronic Qualifiers: Diabetes mellitus penitentiary insulin use: with penitentiary use Diabetes mellitus complication status: with unspecified complications Qualified Code(s) : E11.8 - Type 2 diabetes mellitus with unspecified complications; Z79.4 - FPC (current) use of insulin (7) Obesity Code(s): E66.9 - OBESITY, UNSPECIFIED Status: Chronic Qualifiers: Obesity classification: adult class 3 (BMI >= 40) Body mass index: BMI 40.0 -44.9 - Plan stool for cdiff is -ve -: is on vanc q12h iv, off ceftriaxone -: continue iv hydration, renal function is almost baseline -: replace potassium, will give 1 g iv mgso4 -: encourage po fluid intake, to amb as tolerated, tx to med floor * . Review of Systems - Medications/Allergies Allergies/Adverse Reactions: Allergies Allergy/AdvReac Type Severity Reaction Status Date / Time iodine Allergy Unknown Hives Verified 12/09/18 16:29 Iodinated Contrast- Oral and Allergy Hives Verified 12/09/18 16:29 IV Dye milk Allergy Verified 12/09/18 16:29 Milk Containing Products Allergy Verified 12/09/18 16:29 Medications: Current Medications Hydrocodone Bitart/Acetaminophen ([place] 5/325) 1 tab PO Q8H PRN PRN Reason: AB. PAIN Last Admin: 12/10/18 03:45 Dose: 1 tab Sodium Chloride (Normal Saline 0.9%) 1,000 mls @ 125 mls/hr IV INF [facility] Last Admin: 12/10/18 11:31 Dose: 1,000 mls Vancomycin HCl 500 mg/ Sodium (Chloride) 100 mls @ 100 mls/hr IVPB 0600,1800 [facility] Last Admin: 12/10/18 06:38 Dose: 100 mls Potassium Chloride 20 meq/ (Device) 100 mls @ 50 mls/hr IVPB Q2H [facility] Stop: 12/10/18 11:59 Last Admin: 12/10/18 09:06 Dose: 100 mls Insulin Human Isoph/Insulin Regular (Humulin 70/30) 40 units SC QPM [facility] Last Admin: 12/09/18 20:26 Dose: 40 unit Insulin Human Isoph/Insulin Regular (Humulin 70/30) 70 units SC QAM [facility] Last Admin: 12/10/18 07:47 Dose: 70 unit Insulin Human Regular (Humulin R) 0 units SC .MILD SLIDING PRN; Protocol PRN Reason: MILD SLIDING SCALE Last Admin: 12/09/18 18:33 Dose: 5 unit Nystatin (Mycostatin Powder) 0 gm TOP DAILYPRN PRN PRN Reason: . Last Admin: 12/09/18 19:56 Dose: 1 applic Potassium Chloride (K-Dur) 40 meq PO Q6H [facility] Stop: 12/11/18 14:01 Last Admin: 12/10/18 07:47 Dose: 40 meq Pregabalin (Lyrica) 150 mg PO BID [facility] Last Admin: 12/10/18 07:47 Dose: 150 mg Sodium Chloride (Flush - Normal Saline) 10 ml IVF Q12HR [facility] Last Admin: 12/10/18 07:48 Dose: 10 ml Sodium Chloride (Flush - Normal Saline) 10 ml IVF PRN PRN PRN Reason: Saline Flush
[2018-12-10] MEDS ORDERED: Magnesium 2 GM/50 ML 2 GM in Premix Bag 1 BAG IVPB SCH (13:00)
[2018-12-10 14:47] VITALS: BMI 40.1
[2018-12-10 17:52] LABS: Vancomycin, Trough 10.7 ug/mL
--- NOTE | 2018-12-10 18:03 | PRG ---
DATE OF SERVICE: SUBJECTIVE: She is feeling better, still with some diarrhea, but less. No respiratory symptoms. No abdominal pain. OBJECTIVE: VITAL SIGNS: She has been afebrile since admission. BP 140/79, pulse 84, and O2 sat 99. GENERAL: Awake, alert, and oriented. LUNGS: Clear. HEART: S1 and S2, regular rate. ABDOMEN: Soft and not distended. LABORATORY DATA: White cell count 16.4, hemoglobin 11.9, platelets 378, 75% neutrophils. Potassium is down to 2.8. Creatinine is 1.41. Liver profile normal. Albumin 3.1. C diff was negative. ASSESSMENT AND DISCUSSION: Type 2 diabetes with methicillin-sensitive Staphylococcus aureus bacteremia associated with the right kidney abscess, who was receiving Rocephin downstairs in the oncology unit, but developed complications. At this point, we will continue with vancomycin, and probably when she goes downstairs after discharge, then we will switch her to daptomycin and continue treating for protracted periods of time. No C diff was identified. Await on the correction of electrolyte abnormalities and hopefully discharge planning tomorrow. Job ID: [id number]
[2018-12-10] MEDS: Vancomycin HCl 750 MG in Sodium Chloride 0.9% 250 ML 250 ML IVPB SCH (19:48)
[2018-12-10] MEDS: Insulin Regular 300 UNITS/3 ML VIAL SC PRN (21:21)
[2018-12-11] MEDS: HYDROcodone/Acetaminophen 5/325 mg Tablet PO PRN ×2 (03:29→16:10)
[2018-12-11] MEDS: Potassium Chloride 20 MEQ TAB PO SCH ×2 (03:30→08:51)
[2018-12-11] MEDS: Insulin Regular 300 UNITS/3 ML VIAL SC PRN (05:55)
[2018-12-11] MEDS: Pregabalin 75 MG CAP PO SCH ×2 (08:50→21:51)
[2018-12-11] MEDS: HumuLIN 70/30 (300 UNITS/3 ML VIAL) SC SCH ×2 (08:51→21:54)
[2018-12-11 09:15] LABS: #Basophils 0.1 thou/uL (0.0-0.2); #Eosinphils 0.4 thou/uL (0.0-0.7); #Lymphocytes 4.3 thou/uL (1.20-3.40); #Monocytes 0.6 thou/uL (0.11-0.59); #Neutrophils 9.9 thou/uL (1.40-6.50); %Basophils 0.5 % (0.0-1.0); %Eosinophils 2.5 % (0.0-10.0); %Lymphocytes 28.3 % (21.0-51.0); %Monocytes 3.8 % (0.0-10.0); Hemoglobin 10.2 g/dL (12.0-16.0); Mean Corpuscular Hemoglobin 26.7 pg (27.0-31.0); Mean Corpuscular Volume 83.6 fL (78.0-98.0); Mean Platelet Volume 7.9 fL (7.4-10.4); Platelet Count 315 thou/uL (130-400); RBC Distribution Width 12.6 % (11.5-14.5); Red Blood Cell (RBC) Count 3.81 mill/uL (4.20-5.40); White Blood Cell (WBC) Count 15.2 thou/uL (4.8-10.8)
[2018-12-11 09:49] LABS: Anion Gap 12 mmol/L (10-20); BUN (Urea Nitrogen) 16 mg/dL (7.0-18.7); Calc. Creatinine Clearance 88 mL/min (70-130); Calcium 8.1 mg/dL (7.8-10.44); Carbon Dioxide 28 mmol/L (22-29); Chloride 104 mmol/L (98-107); Estimated GFR-MDRD 47; Glucose 160 mg/dL (70-105); Potassium 4.6 mmol/L (3.5-5.1); Sodium 139 mmol/L (136-145)
[2018-12-11] MEDS: Vancomycin HCl 750 MG in Sodium Chloride 0.9% 250 ML 250 ML IVPB SCH ×2 (10:30→20:42)
--- NOTE | 2018-12-11 10:36 | PDOC.PN ---
- Subjective Encounter Start Date: 12/11/18 Encounter Start Time: 08:45 Subjective: c/o upper quadrant b/l pain with distention -: has severe gastrocolic reflex with passing atleast 3 loose stool after eati -: no nausea - Objective Resuscitation Status - Order Detail: 12/09/18 19:19 Resuscitation Status Routine Resuscitation Status: FULL: Full Resuscitation MAR Reviewed: Yes Vital Signs & Weight: Vital Signs (12 hours) Temp Pulse Resp BP Pulse Ox 12/11/18 08:00 98.2 F 80 18 138/63 99 12/11/18 03:33 98.8 F 77 18 92/50 L 93 L 12/10/18 23:37 97.8 F 93 18 134/93 H 98 Weight Admit Weight 206 lb 9.6 oz Weight 212 lb 12.8 oz I&O: 12/10/18 12/11/18 12/12/18 06:59 06:59 06:59 Intake Total 1087 Balance 1087 Result Diagrams: 12/11/18 08:58 12/11/18 08:58 Additional Labs: Accuchecks 12/11/18 12/10/18 12/10/18 05:54 21:19 16:38 POC Glucose 171 H 200 H 168 H 12/10/18 12/10/18 12/10/18 14:33 13:48 13:19 POC Glucose 119 H 63 L 57 L* 12/10/18 11:59 POC Glucose 103 Phys Exam - Physical Examination HEENT: PERRLA, moist MMs Neck: no JVD, supple Respiratory: no wheezing, no rales Cardiovascular: RRR, no significant murmur Gastrointestinal: soft, positive bowel sounds tenderness worse in epigastric and left hypochondriac area, no rigidity Musculoskeletal: no edema, pulses present Neurological: non-focal, moves all 4 limbs Psychiatric: A&O x 3 Dx/Plan (1) Gastroenteritis Code(s): K52.9 - NONINFECTIVE GASTROENTERITIS AND COLITIS, UNSPECIFIED Status : Acute (2) MSSA bacteremia Code(s): R78.81 - BACTEREMIA Status: Acute (3) Hypokalemia Code(s): E87.6 - HYPOKALEMIA Status: Resolved (4) HTN (hypertension) Code(s): I10 - ESSENTIAL (PRIMARY) HYPERTENSION Status: Chronic Qualifiers: Hypertension type: essential hypertension Qualified Code(s): I10 - Essential (primary) hypertension (5) Chronic anemia Code(s): D64.9 - ANEMIA, UNSPECIFIED Status: Chronic (6) DM type 2 (diabetes mellitus, type 2) Status: Chronic Qualifiers: Diabetes mellitus ad terminal makeup operator insulin use: with ad terminal makeup operator use Diabetes mellitus complication status: with unspecified complications Qualified Code(s) : E11.8 - Type 2 diabetes mellitus with unspecified complications; Z79.4 - watermelon inspector (current) use of insulin (7) Obesity Code(s): E66.9 - OBESITY, UNSPECIFIED Status: Chronic Qualifiers: Obesity classification: adult class 3 (BMI >= 40) Body mass index: BMI 40.0 -44.9 - Plan will obtain CT abd and pelvis with abd pain and distention -: is on vanc iv, humulin 70/30, lyrica bid -: may dc iv fluids if CT is normal -: hemostable -: electrolytes are stable now, to amb if CT is normal * . Review of Systems - Medications/Allergies Allergies/Adverse Reactions: Allergies Allergy/AdvReac Type Severity Reaction Status Date / Time iodine Allergy Unknown Hives Verified 12/09/18 16:29 Iodinated Contrast- Oral and Allergy Hives Verified 12/09/18 16:29 IV Dye milk Allergy Verified 12/09/18 16:29 Milk Containing Products Allergy Verified 12/09/18 16:29 Medications: Current Medications Hydrocodone Bitart/Acetaminophen ([place] 5/325) 1 tab PO Q4H PRN PRN Reason: Pain Last Admin: 12/11/18 03:29 Dose: 1 tab Sodium Chloride (Normal Saline 0.9%) 1,000 mls @ 125 mls/hr IV INF [facility] Last Admin: 12/10/18 23:27 Dose: 1,000 mls Vancomycin HCl 750 mg/ Sodium (Chloride) 250 mls @ 250 mls/hr IVPB 0800,2000 [facility] Last Admin: 12/10/18 19:48 Dose: 250 mls Insulin Human Isoph/Insulin Regular (Humulin 70/30) 40 units SC QPM [facility] Last Admin: 12/10/18 21:19 Dose: 40 unit Insulin Human Isoph/Insulin Regular (Humulin 70/30) 70 units SC QAM [facility] Last Admin: 12/11/18 08:51 Dose: 75 unit Insulin Human Regular (Humulin R) 0 units SC .MILD SLIDING PRN; Protocol PRN Reason: MILD SLIDING SCALE Last Admin: 12/11/18 05:55 Dose: 2 unit Miscellaneous Medication (Pharmacy To Dose) 0 each IVPB PRN PRN PRN Reason: BACTEREMIA Nystatin (Mycostatin Powder) 0 gm TOP DAILYPRN PRN PRN Reason: . Last Admin: 12/09/18 19:56 Dose: 1 applic Potassium Chloride (K-Dur) 40 meq PO Q6H [facility] Stop: 12/11/18 14:01 Last Admin: 12/11/18 08:51 Dose: 40 meq Pregabalin (Lyrica) 150 mg PO BID [facility] Last Admin: 12/11/18 08:50 Dose: 150 mg Sodium Chloride (Flush - Normal Saline) 10 ml IVF Q12HR [facility] Last Admin: 12/11/18 09:20 Dose: Not Given Sodium Chloride (Flush - Normal Saline) 10 ml IVF PRN PRN PRN Reason: Saline Flush
--- NOTE | 2018-12-11 15:10 | CT ---
NONCONTRAST ENHANCED CT IMAGES ABDOMEN AND PELVIS: Oral contrast was given. Comparison made to previous CT from 11/28/2018 and 11/29/2018. FINDINGS: The lung bases are unremarkable. No evidence of free intraperitoneal air seen. The umbilicus demonstrates some thickening. The liver, spleen, gallbladder and pancreas are unremarkable. Adrenal glands unremarkable. The right kidneys unremarkable. Left perirenal fat stranding seen unchanged since the previous comparison CT. No dilated loops of bowel seen. A normal appendix is seen. There is some thickening of some of the transverse and descending colonic mucosa concerning for possi ble colitis. No significant evidence of periaortic lymphadenopathy seen. Mild right inguinal enlarged lymph node is seen diameter measuring 12 mm. IMPRESSION: 1. Left perirenal fat stranding unchanged since previous comparison CT. 2. Colonic mucosal thickening concerning for colitis. Transcribed Date/Time: 12/11/2018 3:46 PM
--- NOTE | 2018-12-11 18:13 | PRG ---
DATE OF SERVICE: 12/11/2018 SUBJECTIVE: Still some loose stools, but not as much as before. A little bit of abdominal tenderness in the mid abdominal area. No respiratory symptoms. OBJECTIVE: VITAL SIGNS: Normal. GENERAL: Awake, alert, and oriented. LUNGS: Clear. HEART: S1 and S2. Regular rate. ABDOMEN: Mildly tender in the mid umbilical area. Bowel sounds are present, but not increased. No distention. EXTREMITIES: Moves all extremities equally. LABORATORY DATA: White cell count 15.2, hemoglobin 10, platelets 315. Creatinine 1.22, potassium is normalized, and the magnesium is low at 1.3. ASSESSMENT AND DISCUSSION: Type 2 diabetes, methicillin-sensitive Staphylococcus aureus bacteremia with right kidney abscess/pyelonephritis and then development of adverse reactions to Rocephin with severe diarrhea, not Clostridium difficile though. She does have a little bit of colonic inflammatory changes, but she does have a negative Clostridium difficile. PLAN: Once she is able to be discharged to switch to daptomycin 6 mg/kg ideal body weight daily. The end date of therapy is calculated as January 14 approximately. In addition to a CBC, CRP and CMP, weekly CPK will be needed while she is on daptomycin. Job ID: [id number]
[2018-12-12] MEDS: Sodium Chloride 0.9% 1,000 ML IV SCH (04:20)
[2018-12-12] MEDS: HYDROcodone/Acetaminophen 5/325 mg Tablet PO PRN ×4 (04:30→20:15)
[2018-12-12 07:38] LABS: Vancomycin, Trough 22.7 ug/mL
[2018-12-12 07:39] LABS: Anion Gap 9 mmol/L (10-20); BUN (Urea Nitrogen) 12 mg/dL (7.0-18.7); Calc. Creatinine Clearance 89 mL/min (70-130); Calcium 8.5 mg/dL (7.8-10.44); Carbon Dioxide 27 mmol/L (22-29); Chloride 109 mmol/L (98-107); Estimated GFR-MDRD 48; Glucose 129 mg/dL (70-105); Potassium 4.8 mmol/L (3.5-5.1); Sodium 140 mmol/L (136-145)
[2018-12-12] MEDS: Nystatin Powder 15 GM BOT TOP PRN (07:48)
[2018-12-12] MEDS: Pregabalin 75 MG CAP PO SCH ×2 (07:48→20:16)
[2018-12-12] MEDS: HumuLIN 70/30 (300 UNITS/3 ML VIAL) SC SCH ×2 (07:50→21:48)
[2018-12-12] MEDS: Vancomycin HCl 750 MG in Sodium Chloride 0.9% 250 ML 250 ML IVPB SCH ×2 (08:15→08:44)
[2018-12-12] MEDS: Saccharomyces boulardii 250 MG CAP PO SCH (08:17)
[2018-12-12] MEDS: Vancomycin HCl 1.5 GM in Sodium Chloride 0.9% 250 ML 300 ML IVPB SCH (08:43)
[2018-12-12] MEDS ORDERED: Lidocaine 2% Viscous Solution 10 ML, Aluminum & Magnesium Hydroxide 30 ML SSW SCH (13:30)
--- NOTE | 2018-12-12 17:14 | PDOC.PN ---
- Subjective Encounter Start Date: 12/12/18 Encounter Start Time: 07:20 Pt seen for followup re: colitis. Diarrhea+, but better. Epigastric discomfort +. - Objective Resuscitation Status - Order Detail: 12/09/18 19:19 Resuscitation Status Routine Resuscitation Status: FULL: Full Resuscitation MAR Reviewed: Yes Vital Signs & Weight: Vital Signs (12 hours) Temp Pulse Resp BP Pulse Ox 12/12/18 16:00 97.9 F 95 20 156/79 H 12/12/18 11:00 98.1 F 83 16 124/57 L 12/12/18 07:00 98.6 F 86 18 130/70 98 Weight Admit Weight 206 lb 9.6 oz Weight 212 lb 12.8 oz I&O: 12/11/18 12/12/18 12/13/18 06:59 06:59 06:59 Intake Total 2797 Balance 2797 Result Diagrams: 12/11/18 08:58 12/12/18 07:11 Additional Labs: Accuchecks 12/12/18 12/12/18 12/12/18 16:25 11:07 07:13 POC Glucose 71 105 130 H 12/11/18 20:41 POC Glucose 72 Labs reviewed by me Phys Exam - Physical Examination Morbid obesity HEENT: moist MMs Neck: supple Respiratory: clear to auscultation bilateral Cardiovascular: RRR Gastrointestinal: soft Mild epigastric tenderness, no guarding or rigidity Neurological: moves all 4 limbs Psychiatric: normal affect Dx/Plan (1) Colitis Code(s): K52.9 - NONINFECTIVE GASTROENTERITIS AND COLITIS, UNSPECIFIED Status : Acute Comment: Pt reports clinical improvement. C. diff -ve. (2) MSSA bacteremia Code(s): R78.81 - BACTEREMIA Status: Acute Comment: continue IV vancomycin (3) Morbid obesity Code(s): E66.01 - MORBID (SEVERE) OBESITY DUE TO EXCESS CALORIES Status: Chronic Comment: appreciate dietitian input (4) HTN (hypertension) Code(s): I10 - ESSENTIAL (PRIMARY) HYPERTENSION Status: Chronic Qualifiers: Hypertension type: essential hypertension Qualified Code(s): I10 - Essential (primary) hypertension Comment: controlled (5) DM type 2 (diabetes mellitus, type 2) Status: Chronic Qualifiers: Diabetes mellitus prison insulin use: with prison use Diabetes mellitus complication status: with unspecified complications Comment: controlled - Plan * . Review of Systems - Review of Systems Cardiovascular: negative: chest pain, palpitations, orthopnea, paroxysmal nocturnal dyspnea, edema, light headedness Gastrointestinal: Abdominal Pain, Diarrhea. negative: Nausea, Vomiting, Constipation, Melena, Hematochezia - Medications/Allergies Allergies/Adverse Reactions: Allergies Allergy/AdvReac Type Severity Reaction Status Date / Time iodine Allergy Unknown Hives Verified 12/09/18 16:29 Iodinated Contrast- Oral and Allergy Hives Verified 12/09/18 16:29 IV Dye milk Allergy Verified 12/09/18 16:29 Milk Containing Products Allergy Verified 12/09/18 16:29 Medications: Current Medications Hydrocodone Bitart/Acetaminophen ([place] 5/325) 1 tab PO Q4H PRN PRN Reason: Pain Last Admin: 12/12/18 16:17 Dose: 1 tab Sodium Chloride (Normal Saline 0.9%) 1,000 mls @ 125 mls/hr IV INF [facility] Last Admin: 12/12/18 04:20 Dose: 1,000 mls Vancomycin HCl 1.5 gm/ Sodium (Chloride) 300 mls @ 200 mls/hr IVPB 1000 [facility] Last Admin: 12/12/18 08:43 Dose: 300 mls Insulin Human Isoph/Insulin Regular (Humulin 70/30) 40 units SC QPM [facility] Last Admin: 12/11/18 21:54 Dose: Not Given Insulin Human Isoph/Insulin Regular (Humulin 70/30) 70 units SC QAM [facility] Last Admin: 12/12/18 07:50 Dose: 70 unit Insulin Human Regular (Humulin R) 0 units SC .MILD SLIDING PRN; Protocol PRN Reason: MILD SLIDING SCALE Last Admin: 12/11/18 05:55 Dose: 2 unit Miscellaneous Medication (Pharmacy To Dose) 0 each IVPB PRN PRN PRN Reason: BACTEREMIA Nystatin (Mycostatin Powder) 0 gm TOP DAILYPRN PRN PRN Reason: . Last Admin: 12/12/18 07:48 Dose: 2 applic Pregabalin (Lyrica) 150 mg PO BID [facility] Last Admin: 12/12/18 07:48 Dose: 150 mg Saccharomyces Boulardii (Florastor) 250 mg PO DAILY [facility] Last Admin: 12/12/18 08:17 Dose: 250 mg Sodium Chloride (Flush - Normal Saline) 10 ml IVF Q12HR [facility] Last Admin: 12/12/18 13:35 Dose: Not Given Sodium Chloride (Flush - Normal Saline) 10 ml IVF PRN PRN PRN Reason: Saline Flush
[2018-12-13 06:26] LABS: #Basophils 0.1 thou/uL (0.0-0.2); #Eosinphils 0.3 thou/uL (0.0-0.7); #Lymphocytes 3.7 thou/uL (1.20-3.40); #Monocytes 0.7 thou/uL (0.11-0.59); #Neutrophils 9.4 thou/uL (1.40-6.50); %Basophils 0.6 % (0.0-1.0); %Eosinophils 1.9 % (0.0-10.0); %Monocytes 4.9 % (0.0-10.0); %Neutrophils 66.7 % (42.0-75.0); Hemoglobin 9.9 g/dL (12.0-16.0); Mean Corpuscular HGB CONC 31.8 g/dL (32.0-36.0); Mean Corpuscular Hemoglobin 26.8 pg (27.0-31.0); Mean Corpuscular Volume 84.4 fL (78.0-98.0); Mean Platelet Volume 7.9 fL (7.4-10.4); Platelet Count 254 thou/uL (130-400); RBC Distribution Width 12.9 % (11.5-14.5); Red Blood Cell (RBC) Count 3.68 mill/uL (4.20-5.40); White Blood Cell (WBC) Count 14.1 thou/uL (4.8-10.8)
[2018-12-13 06:44] LABS: Anion Gap 12 mmol/L (10-20); BUN (Urea Nitrogen) 12 mg/dL (7.0-18.7); Calc. Creatinine Clearance 84 mL/min (70-130); Calcium 8.5 mg/dL (7.8-10.44); Carbon Dioxide 26 mmol/L (22-29); Chloride 106 mmol/L (98-107); Estimated GFR-MDRD 45; Glucose 66 mg/dL (70-105); Potassium 4.3 mmol/L (3.5-5.1); Sodium 140 mmol/L (136-145)
[2018-12-13] MEDS: HumuLIN 70/30 (300 UNITS/3 ML VIAL) SC SCH ×2 (08:15→22:04)
--- NOTE | 2018-12-13 11:00 | SPC ---
SPC CVP LINE PICC INITAL >5 History: [Need for long-term IV access] Comparison: 12/02/2018 Findings: Patient was brought to the special suite. All questions were answered. Informed consent was obtained. Timeout performed. Initially the left arm was prepped and draped in normal sterile fashion. No left arm veins were sizab le for PICC line placement. The right arm was then prepped and draped in normal sterile fashion. There is partial thrombosis righ t basilic vein. Brachial vein not well seen. The cephalic vein was patent. 1 mL lidocaine instilled into the superficial and deep soft tissues. Ov er a wire and through a peel-away sheath a PICC was placed with tip at the inferior SVC. Patient tolerated the procedure well without complication. Impression: Technically successful ultrasound and fluoroscopic guided right upper extremity PICC line placement. Fluoroscopy time: 0.6 minutes
[2018-12-13] MEDS: HYDROcodone/Acetaminophen 5/325 mg Tablet PO PRN ×3 (11:05→21:47)
[2018-12-13] MEDS: Vancomycin HCl 1.5 GM in Sodium Chloride 0.9% 250 ML 300 ML IVPB SCH (11:06)
[2018-12-13] MEDS: Pregabalin 75 MG CAP PO SCH ×2 (13:37→21:54)
[2018-12-13] MEDS: Saccharomyces boulardii 250 MG CAP PO SCH (13:37)
--- NOTE | 2018-12-13 18:31 | PDOC.PN ---
- Subjective Encounter Start Date: 12/13/18 Encounter Start Time: 09:00 Pt seen for followup re: colitis. Abdo pain improved with GI cocktail. Feels better today. - Objective Resuscitation Status - Order Detail: 12/09/18 19:19 Resuscitation Status Routine Resuscitation Status: FULL: Full Resuscitation MAR Reviewed: Yes Vital Signs & Weight: Vital Signs (12 hours) Temp Pulse Resp BP Pulse Ox 12/13/18 17:03 98.1 F 90 18 150/90 H 12/13/18 13:48 98.7 F 104 H 20 152/80 H 12/13/18 11:12 98.7 F 97 18 153/67 H 97 12/13/18 08:43 98.7 F 98 18 148/65 H Weight Admit Weight 206 lb 9.6 oz Weight 212 lb 12.8 oz I&O: 12/12/18 12/13/18 12/14/18 06:59 06:59 06:59 Intake Total 9417 650 10 Balance 2797 650 10 Result Diagrams: 12/13/18 05:59 12/13/18 05:59 Additional Labs: Accuchecks 12/13/18 12/13/18 12/13/18 16:45 11:54 11:11 POC Glucose 192 H 102 56 L* 12/13/18 12/12/18 06:01 21:09 POC Glucose 70 166 H Labs reviewed by me Phys Exam - Physical Examination Morbid obesity HEENT: moist MMs Neck: supple Respiratory: clear to auscultation bilateral Cardiovascular: RRR Gastrointestinal: soft Neurological: moves all 4 limbs Psychiatric: normal affect Dx/Plan (1) Colitis Code(s): K52.9 - NONINFECTIVE GASTROENTERITIS AND COLITIS, UNSPECIFIED Status : Acute Comment: Improving, continue GI cocktail for abdo pain (2) MSSA bacteremia Code(s): R78.81 - BACTEREMIA Status: Acute Comment: continue IV vancomycin, pt to have PICC (3) Morbid obesity Code(s): E66.01 - MORBID (SEVERE) OBESITY DUE TO EXCESS CALORIES Status: Chronic Comment: stable (4) HTN (hypertension) Code(s): I10 - ESSENTIAL (PRIMARY) HYPERTENSION Status: Chronic Qualifiers: Hypertension type: essential hypertension Qualified Code(s): I10 - Essential (primary) hypertension Comment: controlled (5) DM type 2 (diabetes mellitus, type 2) Status: Chronic Qualifiers: Diabetes mellitus terminal worker insulin use: with group home use Diabetes mellitus complication status: with unspecified complications Comment: controlled - Plan * . Review of Systems - Review of Systems Cardiovascular: negative: chest pain, palpitations, orthopnea, paroxysmal nocturnal dyspnea, edema, light headedness Gastrointestinal: Abdominal Pain, Diarrhea. negative: Nausea, Vomiting, Constipation, Melena, Hematochezia - Medications/Allergies Allergies/Adverse Reactions: Allergies Allergy/AdvReac Type Severity Reaction Status Date / Time iodine Allergy Unknown Hives Verified 12/09/18 16:29 Iodinated Contrast- Oral and Allergy Hives Verified 12/09/18 16:29 IV Dye milk Allergy Verified 12/09/18 16:29 Milk Containing Products Allergy Verified 12/09/18 16:29 Medications: Current Medications Hydrocodone Bitart/Acetaminophen ([place] 5/325) 1 tab PO Q4H PRN PRN Reason: Pain Last Admin: 12/13/18 16:53 Dose: 1 tab Lidocaine HCl 10 ml/ Al (Hydroxide/Mg Hydroxide 30 ml) 0 ml SSW Q6H PRN PRN Reason: heartburn Sodium Chloride (Normal Saline 0.9%) 1,000 mls @ 125 mls/hr IV INF [facility] Last Admin: 12/12/18 04:20 Dose: 1,000 mls Vancomycin HCl 1.5 gm/ Sodium (Chloride) 300 mls @ 200 mls/hr IVPB 1000 [facility] Last Admin: 12/13/18 11:06 Dose: 300 mls Insulin Human Isoph/Insulin Regular (Humulin 70/30) 40 units SC QPM [facility] Last Admin: 12/12/18 21:48 Dose: 40 unit Insulin Human Isoph/Insulin Regular (Humulin 70/30) 70 units SC QAM [facility] Last Admin: 12/13/18 08:15 Dose: 70 unit Insulin Human Regular (Humulin R) 0 units SC .MILD SLIDING PRN; Protocol PRN Reason: MILD SLIDING SCALE Last Admin: 12/11/18 05:55 Dose: 2 unit Miscellaneous Medication (Pharmacy To Dose) 0 each IVPB PRN PRN PRN Reason: BACTEREMIA Nystatin (Mycostatin Powder) 0 gm TOP DAILYPRN PRN PRN Reason: . Last Admin: 12/12/18 07:48 Dose: 2 applic Pregabalin (Lyrica) 150 mg PO BID [facility] Last Admin: 12/13/18 13:37 Dose: 150 mg Saccharomyces Boulardii (Florastor) 250 mg PO DAILY [facility] Last Admin: 12/13/18 13:37 Dose: 250 mg Sodium Chloride (Flush - Normal Saline) 10 ml IVF Q12HR [facility] Last Admin: 12/13/18 11:03 Dose: Not Given Sodium Chloride (Flush - Normal Saline) 10 ml IVF PRN PRN PRN Reason: Saline Flush
[2018-12-13] MEDS: Lidocaine 2% Viscous Solution 10 ML, Aluminum & Magnesium Hydroxide 30 ML SSW PRN (19:59)
[2018-12-14] MEDS: HYDROcodone/Acetaminophen 5/325 mg Tablet PO PRN ×2 (02:57→06:34)
[2018-12-14] MEDS: Lidocaine 2% Viscous Solution 10 ML, Aluminum & Magnesium Hydroxide 30 ML SSW PRN (06:34)
[2018-12-14 06:52] LABS: #Basophils 0.1 thou/uL (0.0-0.2); #Eosinphils 0.2 thou/uL (0.0-0.7); #Lymphocytes 3.5 thou/uL (1.20-3.40); #Monocytes 0.7 thou/uL (0.11-0.59); #Neutrophils 7.7 thou/uL (1.40-6.50); %Basophils 0.6 % (0.0-1.0); %Eosinophils 1.9 % (0.0-10.0); %Lymphocytes 28.5 % (21.0-51.0); %Monocytes 5.9 % (0.0-10.0); %Neutrophils 63.1 % (42.0-75.0); Hemoglobin 10.1 g/dL (12.0-16.0); Mean Corpuscular HGB CONC 32.4 g/dL (32.0-36.0); Mean Corpuscular Hemoglobin 27.2 pg (27.0-31.0); Mean Corpuscular Volume 83.9 fL (78.0-98.0); Mean Platelet Volume 8.3 fL (7.4-10.4); Platelet Count 254 thou/uL (130-400); Red Blood Cell (RBC) Count 3.73 mill/uL (4.20-5.40); White Blood Cell (WBC) Count 12.2 thou/uL (4.8-10.8)
[2018-12-14 07:14] LABS: Anion Gap 12 mmol/L (10-20); BUN (Urea Nitrogen) 18 mg/dL (7.0-18.7); Calc. Creatinine Clearance 84 mL/min (70-130); Calcium 8.3 mg/dL (7.8-10.44); Carbon Dioxide 27 mmol/L (22-29); Chloride 104 mmol/L (98-107); Estimated GFR-MDRD 45; Potassium 4.1 mmol/L (3.5-5.1); Sodium 139 mmol/L (136-145)
[2018-12-14 07:20] LABS: Glucose 56 mg/dL (70-105)
[2018-12-14 07:31] VITALS: BP 116/58; TEMP 98.4
[2018-12-14] MEDS ORDERED: HumuLIN 70/30 (300 UNITS/3 ML VIAL) SC SCH ×2 (08:30→21:00)
[2018-12-14] MEDS: Pregabalin 75 MG CAP PO SCH (08:39)
[2018-12-14] MEDS: Saccharomyces boulardii 250 MG CAP PO SCH (08:40)
[2018-12-14] MEDS: HumuLIN 70/30 (300 UNITS/3 ML VIAL) SC SCH (08:45)
[2018-12-14] MEDS: Vancomycin HCl 1.5 GM in Sodium Chloride 0.9% 250 ML 300 ML IVPB SCH ×2 (09:51→10:55)
[2018-12-14 10:19] LABS: Vancomycin, Trough 22.8 ug/mL
--- NOTE | 2018-12-15 00:22 | DIS ---
DATE OF ADMISSION: 12/09/2018 DATE OF DISCHARGE: 12/14/2018 PRIMARY CARE PROVIDER: Sada Aranda MD DISCHARGE DIAGNOSES: 1. Acute on chronic stage 3 kidney disease. 2. Hypokalemia. 3. Hypomagnesemia. 4. Diarrhea. 5. Methicillin-susceptible Staphylococcus aureus bacteremia. 6. Intertriginous eruption, probably due to Chan[place]. CONDITION OF PATIENT ON THE DAY OF DISCHARGE: Stable. I assessed Ms. Olson on the day of discharge. She denies any chest pain or shortness of breath. Vital signs are stable. S1 and S2 are heard, regular. Lungs are clear to auscultation bilaterally. HOSPITAL COURSE: Ms. Olson is a pleasant 48-year-old lady who was admitted to [facility] as a direct admission from [facility] for diarrhea and intertriginous eruption. She was also found to be hypomagnesemic and hypokalemic. Electrolytes were replaced. Stool Clostridium difficile test was negative. Campylobacter antigen and shiga toxin tests were negative as well. She received intravenous vancomycin for previously diagnosed MSSA bacteremia. She had her PICC line changed during this hospitalization. She will follow up with outpatient antibiotic clinic for vancomycin as per Infectious Diseases Service. She received 1.5 g of vancomycin on 12/12/2018. Because of elevated troughs, she did not receive vancomycin on the day of discharge. She also complained of abdominal pain. CT scan of the abdomen was suspicious for colitis. Because of the location of pain, she was trialed on GI cocktail with improvement in her symptoms. She is advised to follow up with Gastroenterology Service as referred by her primary care provider. She has been started on p.r.n. GI cocktail. She was hypoglycemic during this hospitalization and therefore, her Humulin 70/30 doses were decreased. She has been advised to check her blood sugars 3 times a day and show the readings to her primary care provider for management of her insulin. DISCHARGE MEDICATIONS: 1. Lyrica 150 mg 2 times a day. 2. GI cocktail 30 mL every 6 hours as needed. 3. Humulin 70/30, 40 units in the morning and 25 units in the evening. 4. Florastor 250 mg daily. Many thanks for allowing me to participate in your patient's care. Please feel free to contact me with any questions or concerns. DISCHARGE DESTINATION: Home. TIME SPENT: Total amount of time spent coordinating this discharge, 31 minutes. ADDENDUM: Please note that Ms. Olson was also treated for intertriginous eruption with Diflucan during this hospitalization. Job ID: [id number]
[2018-12-15] MEDS ORDERED: HumuLIN 70/30 (300 UNITS/3 ML VIAL) SC SCH (09:00)
== END 2018-12-14 11:15 | disposition home or self-care (01) | DRG 392 ==
LOC: 2SW 15:58 → OBSVTOIN 15:58 → 3SE 12-10 16:11 → 3SW 12-13 12:05 → 3SE 12-14 07:27
PROVIDERS: ADMIT Internal Medicine Infectious Disease; ATTEND Internal Medicine Infectious Disease
PROC: 02HV33Z Insertion of Infusion Device into Superior Vena Cava, Percutaneous Approach (ICD-10-PCS; principal; 2018-12-13)
PROC: B548ZZA Ultrasonography of Superior Vena Cava, Guidance (ICD-10-PCS; 2018-12-13)
PROC: B518YZA Fluoroscopy of Superior Vena Cava using Other Contrast, Guidance (ICD-10-PCS; 2018-12-13)
DX: K52.9 Noninfective gastroenteritis and colitis, unspecified (principal); N17.9 Acute kidney failure, unspecified; Z68.41 Body mass index [BMI] 40.0-44.9, adult; E87.6 Hypokalemia; E83.42 Hypomagnesemia; E78.5 Hyperlipidemia, unspecified; D64.9 Anemia, unspecified; E66.01 Morbid (severe) obesity due to excess calories; L30.4 Erythema intertrigo; B37.2 Candidiasis of skin and nail; N18.3 Chronic kidney disease, stage 3 (moderate); I12.9 Hypertensive chronic kidney disease with stage 1 through stage 4 chronic kidney disease, or unspecified chronic kidney disease; E11.22 Type 2 diabetes mellitus with diabetic chronic kidney disease; E11.649 Type 2 diabetes mellitus with hypoglycemia without coma; Z91.011 Allergy to milk products; Z91.041 Radiographic dye allergy status; Z79.899 Other long term (current) drug therapy; Z79.4 Long term (current) use of insulin
CPT/HCPCS: 36415; 36416; 36569; 74176; 80048; 80053; 80202; 83630; 83735; 85025; 87045; 87046; 87324; 87449; 87899; C1751; J1815; J3370; J3475; J3480; J3490; J7050

== ENCOUNTER 2018-12-18 13:07 | Emergency (ER) | payer SELFPAY ==
[2018-12-18 13:53] LABS: #Basophils 0.1 thou/uL (0.0-0.2); #Eosinphils 0.2 thou/uL (0.0-0.7); #Lymphocytes 2.9 thou/uL (1.20-3.40); #Monocytes 0.6 thou/uL (0.11-0.59); #Neutrophils 7.1 thou/uL (1.40-6.50); %Basophils 0.9 % (0.0-1.0); %Eosinophils 1.5 % (0.0-10.0); %Lymphocytes 26.9 % (21.0-51.0); %Monocytes 5.6 % (0.0-10.0); Mean Corpuscular HGB CONC 32.8 g/dL (32.0-36.0); Mean Corpuscular Hemoglobin 26.8 pg (27.0-31.0); Mean Corpuscular Volume 81.9 fL (78.0-98.0); Mean Platelet Volume 8.2 fL (7.4-10.4); Platelet Count 250 thou/uL (130-400); RBC Distribution Width 13.1 % (11.5-14.5); White Blood Cell (WBC) Count 10.9 thou/uL (4.8-10.8)
[2018-12-18] MEDS ORDERED: Morphine 4 MG/ML VIAL ONE (14:14)
[2018-12-18] MEDS ORDERED: Ondansetron PF 4 MG/2 ML Vial ONE (14:15)
[2018-12-18 14:21] LABS: ALT (SGPT) 7 U/L (8-55); AST (SGOT) 10 U/L (5-34); Albumin 3.3 g/dL (3.5-5.0); Alkaline Phosphatase 91 U/L (40-150); Anion Gap 12 mmol/L (10-20); BUN (Urea Nitrogen) 22 mg/dL (7.0-18.7); Bilirubin, Total 0.4 mg/dL (0.2-1.2); Calc. Creatinine Clearance 0 mL/min (70-130); Calcium 9.1 mg/dL (7.8-10.44); Carbon Dioxide 28 mmol/L (22-29); Chloride 101 mmol/L (98-107); Estimated GFR-MDRD 35; Glucose 223 mg/dL (70-105); Protein, Total 7.3 g/dL (6.0-8.3); Sodium 137 mmol/L (136-145)
[2018-12-18 14:42] LABS: Bilirubin Negative (Negative); Blood, Urine Small (Negative); Clarity CLEAR (Clear); Glucose, Urine (Dipstick) Negative (Negative); Leukocyte Small (Negative); Nitrite Negative (Negative); Protein, Urine (Dipstick) 30 mg/dL (Neg-Trace); Specific Gravity, Urine 1.012 (1.002-1.036); Urobilinogen 0.2 mg/dL (0.2-1.0); pH, Urine 6.5 (5.0-9.0)
[2018-12-18 14:44] LABS: Bacteria/HPF None Seen HPF (None Seen); Pathc Cast-AUWi Flag 2.04 (0-2.49)
--- NOTE | 2018-12-18 14:52 | CT ---
NONCONTRAST ENHANCED CT IMAGES ABDOMEN AND PELVIS: HISTORY: Back pain. Noncontrast enhanced CT images of the abdomen and pelvis obtained. Comparison made to previous CT from one week earlier on 12/11/2018. FINDINGS: The lung bases are unremarkable. No evidence of free intraperitoneal air seen. No significant interval changes noted in the CT of the abdomen and pelvis. Some fat stranding seen vargas rrounding the left perirenal space. Again no evidence of renal calculi seen. Descending colonic thickening is reduced when compared to the previous exam. IMPRESSION: No evidence of renal calculi. Transcribed Date/Time: 12/18/2018 2:59 PM
[2018-12-18 14:55] LABS: Hyaline Casts/LPF NONE SEEN LPF (0-3 Hyaline); Renal Epithelial 0-3 HPF (0-3); Transitional Epithelial 0-3 HPF (0-3)
== END 2018-12-18 16:02 | disposition home or self-care (01) ==
LOC: ERS 13:07
DX: R10.9 Unspecified abdominal pain (principal); E11.40 Type 2 diabetes mellitus with diabetic neuropathy, unspecified; R11.0 Nausea; G43.909 Migraine, unspecified, not intractable, without status migrainosus; F32.9 Major depressive disorder, single episode, unspecified; Z87.891 Personal history of nicotine dependence; Z79.4 Long term (current) use of insulin; Z79.899 Other long term (current) drug therapy
CPT/HCPCS: 74176; 80053; 81003; 81015; 82550; 85025; 96374; 96375; J2270; J2405

== ENCOUNTER 2019-02-12 16:43 | Inpatient (IN) | payer SELFPAY ==
[2019-02-12] MEDS ORDERED: Piperacillin/Tazobactam 4.5 GM in Sodium Chloride 0.9% 100 ML IVPB ONE (18:00)
[2019-02-12] MEDS ORDERED: Midazolam HCl 2 mg/2 ml Vial ONE (18:10)
[2019-02-12] MEDS ORDERED: Fentanyl 100 MCG/2 ML VIAL ONE ×2 (18:10→20:05)
[2019-02-12] MEDS ORDERED: Promethazine HCl 25 MG/ML VIAL IM PRN (19:19)
[2019-02-12] MEDS ORDERED: Ondansetron HCl/PF 4 MG/2 ML Vial IVP PRN (19:19)
[2019-02-12] MEDS ORDERED: Promethazine HCl 25 MG/ML VIAL SLOW IVP PRN (19:19)
[2019-02-12] MEDS ORDERED: Dextrose 50% Abboject 50 ML SYRINGE SLOW IVP PRN (19:22)
[2019-02-12] MEDS ORDERED: Dextrose 5% in Water 1,000 ML IV PRN (19:22)
[2019-02-12] MEDS ORDERED: Ondansetron ODT 4 MG TAB PO PRN (19:22)
[2019-02-12] MEDS ORDERED: Ondansetron PF 4 MG/2 ML Vial IVP PRN (19:22)
[2019-02-12] MEDS ORDERED: Lorazepam 2 MG/ML VIAL SLOW IVP PRN (19:22)
[2019-02-12] MEDS ORDERED: hydrALAZINE 20 MG/ML VIAL SLOW IVP PRN (19:22)
[2019-02-12] MEDS ORDERED: traMADol HCl 50 MG TAB PO PRN (19:27)
[2019-02-12] MEDS ORDERED: Acetaminophen 500 MG TAB PO PRN (19:27)
--- NOTE | 2019-02-12 19:28 | OP ---
DATE OF PROCEDURE: 02/12/2019 PREOPERATIVE DIAGNOSIS: Diabetic infection, left foot, secondary to a penetrating thorn, refractory to outpatient antibiotic wound care, now in need of definitive surgical intervention. PROCEDURE PERFORMED: Amputation of left second and third toes and metatarsals. ANESTHESIA: General. DESCRIPTION OF PROCEDURE: The patient was taken to the operating room, where under general anesthesia, left lower extremity was prepared with Betadine, draped in routine fashion. The patient had diabetic infection of the left third toe, and on further inspection, this involved the second toe. I initially amputated the third toe and metatarsal, making a racquet incision and had extended to the second toe as the infection involved this along with sinus tracts in that proximal plantar joint. Metatarsal was divided with a bone cutter resecting it approximately with a rongeur. Connective tissue debrided sharply. Wound irrigated, hemostasis gained with cautery. There was excellent blood supply with postop bleeding. Hemostasis obtained. Wound packed open for tonight. Wound Care team will place the wound VAC tomorrow. The patient tolerated the procedure well without problems. Job ID: [id number]
[2019-02-12] MEDS ORDERED: HumuLIN 70/30 (300 UNITS/3 ML VIAL) SC SCH (21:00)
[2019-02-12 22:23] VITALS: BMI 41.3
[2019-02-12] MEDS: traMADol HCl 50 MG TAB PO PRN (22:33)
[2019-02-12] MEDS: Pregabalin 75 MG CAP PO SCH (22:36)
[2019-02-12] MEDS: HumaLOG 300 UNITS/3 ML VIAL SC PRN (22:51)
[2019-02-12] MEDS: Enoxaparin Sodium 40 MG/0.4 ML SYRINGE SC SCH (22:52)
[2019-02-13] MEDS: Acetaminophen/Codeine 30-300mg Tablet PO PRN ×4 (00:12→20:37)
[2019-02-13] MEDS: Piperacillin/Tazobactam 4.5 GM in Sodium Chloride 0.9% 100 ML IVPB SCH ×4 (00:14→17:29)
[2019-02-13] MEDS ORDERED: Morphine 2 MG/ML SYRINGE SLOW IVP SCH (02:30)
[2019-02-13] MEDS: traMADol HCl 50 MG TAB PO PRN ×3 (04:52→16:45)
[2019-02-13 05:40] LABS: #Basophils 0.1 thou/uL (0.0-0.2); #Eosinphils 0.5 thou/uL (0.0-0.7); #Lymphocytes 3.9 thou/uL (1.20-3.40); #Monocytes 1.1 thou/uL (0.11-0.59); #Neutrophils 9.1 thou/uL (1.40-6.50); %Basophils 0.5 % (0.0-1.0); %Eosinophils 3.6 % (0.0-10.0); %Lymphocytes 26.5 % (21.0-51.0); %Monocytes 7.7 % (0.0-10.0); %Neutrophils 61.6 % (42.0-75.0); Mean Corpuscular HGB CONC 31.1 g/dL (32.0-36.0); Mean Corpuscular Volume 83.7 fL (78.0-98.0); Mean Platelet Volume 7.5 fL (7.4-10.4); Platelet Count 420 thou/uL (130-400); RBC Distribution Width 14.4 % (11.5-14.5); Red Blood Cell (RBC) Count 3.45 mill/uL (4.20-5.40); White Blood Cell (WBC) Count 14.7 thou/uL (4.8-10.8)
[2019-02-13 05:50] LABS: Hemoglobin A1c 10.8 % (4.0-6.0)
[2019-02-13 06:05] LABS: ALT (SGPT) 15 U/L (8-55); AST (SGOT) 11 U/L (5-34); Alkaline Phosphatase 212 U/L (40-150); Anion Gap 10 mmol/L (10-20); BUN (Urea Nitrogen) 11 mg/dL (7.0-18.7); Bilirubin, Total 0.3 mg/dL (0.2-1.2); Calc. Creatinine Clearance 93 mL/min (70-130); Calcium 9.2 mg/dL (7.8-10.44); Carbon Dioxide 29 mmol/L (22-29); Chloride 104 mmol/L (98-107); Estimated GFR-MDRD 49; Globulin 4.1 g/dL (2.4-3.5); Glucose 75 mg/dL (70-105); Potassium 3.3 mmol/L (3.5-5.1); Protein, Total 7.1 g/dL (6.0-8.3); Sodium 140 mmol/L (136-145)
--- NOTE | 2019-02-13 07:53 | HP ---
HISTORY OF PRESENT ILLNESS: Jeanne Olson is a 48-year-old female, who skipped on an object and was admitted to the hospital last . I was initially consulted and the consult discontinued and then I saw her later because of progressive infection. She had MRI that did not reveal an abscess. I explored her plantar wound and appreciated a sinus tract. She was sent home with wound care. Her foot worsened and she presents to my office today. She has a severe diabetic infection of her left foot with a sinus tract in the webspace of the third toe tracking into the metatarsophalangeal joint. There is severe cellulitis and edema over her left foot even on oral antibiotics. Plan at this time and recommendation would be amputation of her left third toe and adjacent toe as indicated based on operative findings. She would need a postoperative wound VAC placed eventually. Outpatient charitable VAC would need to be arranged. She would need to have this done today for this severe diabetic infection and admitted for IV antibiotics for a few days. ALLERGIES: IODINE. MEDICATIONS: 1. Metformin. 2. Lyrica. 3. Oral antibiotics. 4. Florastor. 5. Insulin. PAST SURGICAL HISTORY: ; cyst in her back, removed skin and soft tissue; exploration of her left foot and washout. PAST MEDICAL HISTORY: Insulin dependent type 2 diabetes mellitus, obesity. REVIEW OF SYSTEMS: Noncontributory. PHYSICAL EXAMINATION: VITAL SIGNS: Weight 223 pounds, height 5 foot 1 inch, BMI 42, blood pressure 143/58, heart rate 85, temperature 98.4 degrees. HEAD, EARS, EYES, NOSE AND THROAT: Unremarkable. LUNGS: Clear to auscultation. CARDIAC: Regular rate and rhythm without murmur or gallop. ABDOMEN: Soft and nontender. Palpable pedal pulses. Left foot with severe infection with cellulitis and open wound in the webspace between her third and fourth toes. When probed, this tracks to the metatarsophalangeal joint. There is blistering of the skin surrounding, and severe edema and cellulitis extending to her ankle. ASSESSMENT AND PLAN: Severe infection, left foot. Plan incision, drainage, and debridement tonight. She will plan admission postoperatively. Job ID: [id number]
[2019-02-13] MEDS: Pregabalin 75 MG CAP PO SCH ×2 (08:09→20:33)
[2019-02-13] MEDS ORDERED: HumuLIN 70/30 (300 UNITS/3 ML VIAL) SC SCH ×3 (09:00→17:00)
--- NOTE | 2019-02-13 09:28 | PDOC.HOSPP ---
- Subjective Encounter Date: 02/13/19 Encounter Time: 09:26 Subjective: Patient seen and examined for medical mngt. No fever or chills. Pain controlled. No CP or SOB. No new complaints. No overnight events - Objective Vital Signs & Weight: Vital Signs (12 hours) Temp Pulse Resp BP Pulse Ox 02/13/19 07:08 98.4 F 76 12 136/65 99 02/13/19 04:27 97.8 F 71 121/67 98 02/13/19 02:44 74 18 136/60 02/13/19 01:05 97.8 F 83 19 100 02/13/19 00:05 98.0 F 92 117/60 100 02/12/19 23:02 98 F 95 16 144/72 H 98 02/12/19 22:47 97.7 F 103 H 18 129/70 100 02/12/19 21:30 97.7 F 97 133/88 100 Weight Weight 219 lb I&O: 02/12/19 02/13/19 02/14/19 06:59 06:59 06:59 Intake Total 1390 Balance 1390 Result Diagrams: 02/13/19 05:20 02/13/19 05:20 Additional Labs: Accuchecks 02/13/19 02/12/19 02/12/19 05:22 22:48 18:02 POC Glucose 79 239 H 168 H Laboratory Tests 02/13/19 05:20 Hemoglobin A1c 10.8 H EKG Reviewed by me: Yes (Tele strip SR) ROS - Review of Systems Respiratory: denies: cough, dry, shortness of breath, hemoptysis, SOB with excertion, pleuritic pain, sputum, wheezing, other Cardiovascular: denies: chest pain, palpitations, orthopnea, paroxysmal noc. dyspnea, edema, light headedness, other Gastrointestinal: denies: nausea, vomitting, abdominal pain, diarrhea, constipation, melena, hematochezia, other - Medication Medications: Active Medications Generic Name Dose Route Start Last Admin Trade Name Freq PRN Reason Stop Dose Admin Acetaminophen/Codeine Phosphate 1 tab 02/12/19 19:29 02/13/19 08:09 Tylenol #3 PO 1 tab Q6H PRN Administration Moderate Pain (4-6) Enoxaparin Sodium 40 mg 02/12/19 21:00 02/12/19 22:52 Lovenox SC 40 mg 2100 BOGDAN Administration Piperacillin Sod/Tazobactam 100 mls @ 200 mls/hr 02/12/19 23:59 02/13/19 06: 33 Sod 4.5 gm/ Sodium Chloride IVPB 100 mls Q6HR BOGDAN Administration Insulin Human Lispro 0 units 02/12/19 19:22 02/12/19 22:51 Humalog SC 4 unit .MODERATE SLIDING SC PRN Administration Moderate Correctional Scale Pantoprazole Sodium 40 mg 02/13/19 09:00 02/13/19 08:09 Protonix PO 40 mg DAILY BOGDAN Administration Pregabalin 150 mg 02/12/19 21:00 02/13/19 08:09 Lyrica PO 150 mg BID BOGDAN Administration Tramadol HCl 100 mg 02/12/19 19:27 02/13/19 04:52 Ultram PO 100 mg Q6H PRN Administration Moderate to Severe Pain (6-10) - Exam NAD Neck: supple, no JVD Heart: RRR, no gallops, no rubs Respiratory: CTAB, no wheezes, no rales, no ronchi Gastrointestinal: soft, non-tender, non-distended, normal bowel sounds Extremities: no cyanosis, no clubbing Hosp A/P (1) DM (diabetes mellitus), type 2, uncontrolled Code(s): E11.65 - TYPE 2 DIABETES MELLITUS WITH HYPERGLYCEMIA Qualifiers: Glycemic state: with hypoglycemia (2) HTN (hypertension) Code(s): I10 - ESSENTIAL (PRIMARY) HYPERTENSION Qualifiers: (3) Hypokalemia Code(s): E87.6 - HYPOKALEMIA Status: Acute (4) Morbid obesity with BMI of 40.0-44.9, adult Code(s): E66.01 - MORBID (SEVERE) OBESITY DUE TO EXCESS CALORIES; Z68.41 - BODY MASS INDEX (BMI) 40.0-44.9, ADULT (5) Anemia, normocytic normochromic Code(s): D64.9 - ANEMIA, UNSPECIFIED Status: Chronic (6) CKD (chronic kidney disease) stage 3, GFR 30-59 ml/min Code(s): N18.3 - CHRONIC KIDNEY DISEASE, STAGE 3 (MODERATE) Status: Acute (7) Diabetic neuropathy Code(s): E11.40 - TYPE 2 DIABETES MELLITUS WITH DIABETIC NEUROPATHY, UNSP Status: Acute Qualifiers: Diabetes mellitus type: type 2 - Plan plan discussed w/ family On IV Zosyn Received 70 units Novolog 70/30 this AM Will adjust insulin dose based on acuchecks Replace Potassium Cont other meds as above Will follow. Cont slding scale ACHS acuchecks
[2019-02-13] MEDS ORDERED: Potassium Chloride 20 MEQ TAB PO SCH (09:30)
[2019-02-13] MEDS: Ibuprofen 600 MG TAB PO PRN ×2 (10:20→17:28)
[2019-02-13] MEDS: Saccharomyces boulardii 250 MG CAP PO SCH ×2 (10:23→11:58)
--- NOTE | 2019-02-13 15:45 | PRG ---
DATE OF SERVICE: 02/13/2019 Ms. Olson is doing well today. She has had a very little pain. Her pain is under good control. Temperature 98.3 degrees, pulse 70, and blood pressure 100/60. This morning, her white count is 14, hemoglobin 9. Basic metabolic profile normal. Potassium 3.3, creatinine 1.18, glucose is 79 to 239. Hemoglobin A1c was 10.8. Cultures intraoperatively so far did not reveal anything. She previously grew Escherichia coli. She is on Zosyn. She is one-day status post amputations of left second and third toes for diabetic infection. Wound left open. There was excellent blood supply, pulsatile bleeding. Wound VAC applied this morning. Plan at this time is to leave the wound VAC over the weekend. Dr. Telles is covering over the weekend. Dr. Delta Dickens will see the patient Saturday, and she might be ready for discharge home, pending availability of home VAC, charitable VAC, and outpatient care with outpatient wound care, Mondays and twice a week for healing by secondary intention. I have written prescriptions for Augmentin for 10 days. She should follow up in my office in 2 to 3 weeks. She can weightbear as tolerated. Dr. Telles is covering the weekend and Dr. Dickens next week. Job ID: [id number]
[2019-02-13] MEDS ORDERED: Dextrose 50% Abboject 50 ML SYRINGE SLOW IVP PRN (17:14)
[2019-02-13] MEDS ORDERED: Dextrose 5% in Water 1,000 ML IV PRN (17:14)
--- NOTE | 2019-02-13 17:16 | PDOC.EVN ---
Event Note - Event Note Event Note: Patient hypoglycemic. Will change 70/30 to NPH. Cont moderate sliding scale.
[2019-02-13] MEDS: Loperamide HCl 2 MG CAP PO PRN (17:28)
[2019-02-13] MEDS: Enoxaparin Sodium 40 MG/0.4 ML SYRINGE SC SCH (20:35)
[2019-02-13] MEDS: NPH, Human Insulin Isophane 300 UNIT/3 ML VIAL SC SCH (22:08)
[2019-02-13] MEDS ORDERED: HumaLOG 300 UNITS/3 ML VIAL SC PRN (22:53)
[2019-02-14] MEDS: Piperacillin/Tazobactam 4.5 GM in Sodium Chloride 0.9% 100 ML IVPB SCH ×4 (00:10→17:03)
[2019-02-14] MEDS: traMADol HCl 50 MG TAB PO PRN ×3 (00:13→17:04)
[2019-02-14] MEDS ORDERED: HumuLIN 70/30 (300 UNITS/3 ML VIAL) SC SCH ×4 (08:00→17:00)
[2019-02-14] MEDS: Saccharomyces boulardii 250 MG CAP PO SCH (09:46)
[2019-02-14] MEDS: Pregabalin 75 MG CAP PO SCH ×2 (09:47→20:59)
[2019-02-14] MEDS: Acetaminophen/Codeine 30-300mg Tablet PO PRN ×2 (09:51→21:06)
[2019-02-14] MEDS: Ibuprofen 600 MG TAB PO PRN (12:48)
--- NOTE | 2019-02-14 12:49 | PDOC.HOSPP ---
- Subjective Encounter Date: 02/14/19 Encounter Time: 12:46 Subjective: Patient seen and examined for med mngt. Hypoglemia improved. Was on IV Dextrose drip. No CP or SOB. Pain controlled. No new complaints. No overnight events - Objective Vital Signs & Weight: Vital Signs (12 hours) Temp Pulse Resp BP Pulse Ox 02/14/19 10:47 97.8 F 80 18 145/83 H 99 02/14/19 07:40 97.8 F 80 18 137/83 99 02/14/19 04:00 97.9 F 76 16 105/68 99 Weight Admit Weight 219 lb Weight 219 lb I&O: 02/13/19 02/14/19 02/15/19 06:59 06:59 06:59 Intake Total 1390 Balance 1390 Result Diagrams: 02/13/19 05:20 02/13/19 05:20 Additional Labs: Accuchecks 02/14/19 02/14/19 02/14/19 11:43 05:13 00:16 POC Glucose 256 H 174 H 171 H 02/13/19 02/13/19 02/13/19 19:34 17:37 16:12 POC Glucose 91 68 L 55 L* ROS - Review of Systems Respiratory: denies: cough, dry, shortness of breath, hemoptysis, SOB with excertion, pleuritic pain, sputum, wheezing, other Cardiovascular: denies: chest pain, palpitations, orthopnea, paroxysmal noc. dyspnea, edema, light headedness, other Gastrointestinal: denies: nausea, vomitting, abdominal pain, diarrhea, constipation, melena, hematochezia, other - Medication Medications: Active Medications Generic Name Dose Route Start Last Admin Trade Name Freq PRN Reason Stop Dose Admin Acetaminophen/Codeine Phosphate 1 tab 02/12/19 19:29 02/14/19 09:51 Tylenol #3 PO 1 tab Q6H PRN Administration Moderate Pain (4-6) Enoxaparin Sodium 40 mg 02/12/19 21:00 02/13/19 20:35 Lovenox SC 40 mg 2100 BOGDAN Administration Piperacillin Sod/Tazobactam 100 mls @ 200 mls/hr 02/12/19 23:59 02/14/19 05: 55 Sod 4.5 gm/ Sodium Chloride IVPB 100 mls Q6HR BOGDAN Administration Dextrose/Water 1,000 mls @ 0 mls/hr 02/13/19 17:14 02/13/19 17:38 D5w IV 1,000 mls .Q0M PRN Administration Hypoglycemia As Directed Ibuprofen 600 mg 02/12/19 19:27 02/13/19 17:28 Motrin PO 600 mg Q6H PRN Administration Moderate Pain (4-6) Insulin Human Lispro 0 units 02/12/19 19:22 02/12/19 22:51 Humalog SC 4 unit .MODERATE SLIDING SC PRN Administration Moderate Correctional Scale Loperamide HCl 2 mg 02/13/19 17:13 02/13/19 17:28 Imodium PO 2 mg PRN PRN Administration Diarrhea/Loose Stools Pantoprazole Sodium 40 mg 02/13/19 09:00 02/14/19 09:47 Protonix PO 40 mg DAILY BOGDAN Administration Pregabalin 150 mg 02/12/19 21:00 02/14/19 09:47 Lyrica PO 150 mg BID BOGDAN Administration Saccharomyces Boulardii 250 mg 02/13/19 09:00 02/14/19 09:46 Florastor PO 250 mg DAILY BOGDAN Administration Tramadol HCl 100 mg 02/12/19 19:27 02/14/19 06:07 Ultram PO 100 mg Q6H PRN Administration Moderate to Severe Pain (6-10) - Exam NAD Neck: supple, no JVD Heart: RRR, no gallops Respiratory: CTAB, no wheezes, no ronchi Gastrointestinal: soft, non-tender, normal bowel sounds Extremities: no edema (wound dressing +) Hosp A/P (1) DM (diabetes mellitus), type 2, uncontrolled Code(s): E11.65 - TYPE 2 DIABETES MELLITUS WITH HYPERGLYCEMIA Qualifiers: Glycemic state: with hypoglycemia (2) HTN (hypertension) Code(s): I10 - ESSENTIAL (PRIMARY) HYPERTENSION Qualifiers: (3) Hypokalemia Code(s): E87.6 - HYPOKALEMIA Status: Acute (4) Morbid obesity with BMI of 40.0-44.9, adult Code(s): E66.01 - MORBID (SEVERE) OBESITY DUE TO EXCESS CALORIES; Z68.41 - BODY MASS INDEX (BMI) 40.0-44.9, ADULT (5) Anemia, normocytic normochromic Code(s): D64.9 - ANEMIA, UNSPECIFIED Status: Chronic (6) CKD (chronic kidney disease) stage 3, GFR 30-59 ml/min Code(s): N18.3 - CHRONIC KIDNEY DISEASE, STAGE 3 (MODERATE) Status: Acute (7) Diabetic neuropathy Code(s): E11.40 - TYPE 2 DIABETES MELLITUS WITH DIABETIC NEUROPATHY, UNSP Status: Acute Qualifiers: Diabetes mellitus type: type 2 - Plan continue antibiotics, DVT proph w/lovenox, DVT proph w/SCDs, dc IVF On IV Zosyn Change 70/30 to 25 BID-WM. Cont other meds as above Will follow. Cont sliding scale ACHS/0200 acuchecks Cont Lyrica
--- NOTE | 2019-02-14 12:51 | PRG ---
DATE OF SERVICE: 02/14/2019 SUBJECTIVE: This is a 48-year-old female, who comes in to evaluation of left foot pain and infection. She underwent debridement and amputation on the left foot. Currently, she is on wound care and wound VAC. She has been doing well. Pain is well controlled. She developed no fever or shortness of breath. She tolerated regular diet. OBJECTIVE: GENERAL: The patient is alert, awake, and oriented x3. She is comfortable in bed with no acute distress. VITAL SIGNS: Temperature 97.8, heart rate 80, respiratory rate 18, O2 saturation 99% on room air, blood pressure 145/83. LUNGS: Clear bilaterally. HEART: Regular rate and rhythm. ABDOMEN: Soft and nondistended. EXTREMITIES: Left extremity; amputated second and third toes, on wound VAC. Wound VAC is working well. Dressing is clean and intact. The fourth toe is viable. Capillary refill is normal. [place] and warm. NEUROLOGIC: Chronic neuropathy and reduced sensation in both lower feet due to diabetes. DIAGNOSES: 1. Status post second and third toes amputation due to diabetic foot. 2. History of hypertension. 3. Diabetes. PLAN: Continue pain control. Continue wound care and wound VAC. Dr. Dickens will see the patient on Saturday and determine if the patient will be discharged then. The patient will be arranged with home wound VAC or [facility] wound VAC outpatient care. The patient will be arranged to see Dr. Vega in the office in 2 to 3 weeks. Job ID: [id number]
[2019-02-14] MEDS: NPH, Human Insulin Isophane 300 UNIT/3 ML VIAL SC SCH (14:39)
[2019-02-14] MEDS: Enoxaparin Sodium 40 MG/0.4 ML SYRINGE SC SCH (20:58)
[2019-02-14] MEDS: Loperamide HCl 2 MG CAP PO PRN (22:37)
--- NOTE | 2019-02-14 23:14 | PRG ---
DATE OF SERVICE: SUBJECTIVE: The patient is currently on the medicine floor. She is status post amputation of her 2nd and 3rd toes due to a diabetic foot. The patient underwent her procedure. She currently has a wound VAC in place and is functioning properly. She is awaiting discharge once home wound VAC or charitable VAC has been arranged. OBJECTIVE: VITAL SIGNS: Stable. The patient is afebrile. GENERAL: The patient is asleep in bed. She appears comfortable, in no distress. Wound VAC is in place. Appears to be functioning properly. ASSESSMENT AND PLAN: Status post 2nd and 3rd toe amputations of left foot due to diabetic complications. Plan will be to continue supportive care plan as previously arranged by Dr. Vega. Job ID: [id number]
[2019-02-15] MEDS: Piperacillin/Tazobactam 4.5 GM in Sodium Chloride 0.9% 100 ML IVPB SCH ×4 (00:02→17:43)
[2019-02-15] MEDS: Loperamide HCl 2 MG CAP PO PRN ×4 (00:11→17:47)
[2019-02-15] MEDS: traMADol HCl 50 MG TAB PO PRN ×3 (03:26→17:46)
[2019-02-15 06:25] LABS: Anion Gap 13 mmol/L (10-20); BUN (Urea Nitrogen) 16 mg/dL (7.0-18.7); Calc. Creatinine Clearance 65 mL/min (70-130); Carbon Dioxide 25 mmol/L (22-29); Chloride 105 mmol/L (98-107); Estimated GFR-MDRD 33; Glucose 74 mg/dL (70-105); Magnesium 2.3 mg/dL (1.6-2.6); Potassium 4.4 mmol/L (3.5-5.1); Sodium 139 mmol/L (136-145)
[2019-02-15] MEDS: Acetaminophen/Codeine 30-300mg Tablet PO PRN ×2 (08:20→15:44)
[2019-02-15] MEDS: Pregabalin 75 MG CAP PO SCH ×2 (08:21→20:36)
[2019-02-15] MEDS: Saccharomyces boulardii 250 MG CAP PO SCH (08:21)
[2019-02-15] MEDS: HumuLIN 70/30 (300 UNITS/3 ML VIAL) SC SCH ×2 (08:22→17:44)
--- NOTE | 2019-02-15 15:36 | PDOC.HOSPP ---
- Subjective Encounter Date: 02/15/19 Encounter Time: 14:00 Subjective: Patient seen and examined for medical mngt. Pain controlled. No new complaints. No overnight events - Objective Vital Signs & Weight: Vital Signs (12 hours) Temp Pulse Resp BP Pulse Ox 02/15/19 08:00 93 L 02/15/19 07:07 98.5 F 83 18 139/71 91 L 02/15/19 04:51 97.9 F 88 16 136/76 95 Weight Admit Weight 219 lb Weight 219 lb I&O: 02/14/19 02/15/19 02/16/19 06:59 06:59 06:59 Intake Total 1390 1160 480 Balance 1390 1160 480 Result Diagrams: 02/13/19 05:20 02/15/19 05:03 Additional Labs: Accuchecks 02/15/19 02/15/19 02/15/19 11:24 04:52 00:04 POC Glucose 143 H 88 75 02/14/19 02/14/19 02/14/19 22:32 18:47 18:04 POC Glucose 58 L* 69 L 69 L 02/14/19 17:02 POC Glucose 111 H ROS - Review of Systems Respiratory: denies: cough, dry, shortness of breath, hemoptysis, SOB with excertion, pleuritic pain, sputum, wheezing, other Cardiovascular: denies: chest pain, palpitations, orthopnea, paroxysmal noc. dyspnea, edema, light headedness, other Gastrointestinal: denies: nausea, vomitting, abdominal pain, diarrhea, constipation, melena, hematochezia, other - Medication Medications: Active Medications Generic Name Dose Route Start Last Admin Trade Name Freq PRN Reason Stop Dose Admin Acetaminophen/Codeine Phosphate 1 tab 02/12/19 19:29 02/15/19 08:20 Tylenol #3 PO 1 tab Q6H PRN Administration Moderate Pain (4-6) Enoxaparin Sodium 40 mg 02/12/19 21:00 02/14/19 20:58 Lovenox SC 40 mg 2100 BOGDAN Administration Piperacillin Sod/Tazobactam 100 mls @ 200 mls/hr 02/12/19 23:59 02/15/19 13: 01 Sod 4.5 gm/ Sodium Chloride IVPB 100 mls Q6HR BOGADN Administration Dextrose/Water 1,000 mls @ 0 mls/hr 02/13/19 17:14 02/13/19 17:38 D5w IV 1,000 mls .Q0M PRN Administration Hypoglycemia As Directed Insulin Human Isoph/Insulin Regular 15 units 02/15/19 08:00 02/15/19 08:22 Humulin 70/30 SC 15 unit BID-WM BOGDAN Administration Insulin Human Lispro 0 units 02/12/19 19:22 02/12/19 22:51 Humalog SC 4 unit .MODERATE SLIDING SC PRN Administration Moderate Correctional Scale Loperamide HCl 2 mg 02/13/19 17:13 02/15/19 08:22 Imodium PO 2 mg PRN PRN Administration Diarrhea/Loose Stools Pantoprazole Sodium 40 mg 02/13/19 09:00 02/15/19 08:22 Protonix PO 40 mg DAILY BOGDAN Administration Pregabalin 150 mg 02/12/19 21:00 02/15/19 08:21 Lyrica PO 150 mg BID BOGDAN Administration Saccharomyces Boulardii 250 mg 02/13/19 09:00 02/15/19 08:21 Florastor PO 250 mg DAILY BOGDAN Administration Sodium Chloride 10 ml 02/12/19 19:22 02/14/19 12:00 Flush - Normal Saline IVF 10 ml PRN PRN Administration Saline Flush Tramadol HCl 100 mg 02/12/19 19:27 02/15/19 12:11 Ultram PO 100 mg Q6H PRN Administration Moderate to Severe Pain (6-10) - Exam NAD Heart: RRR, no rubs Respiratory: CTAB, no rales Gastrointestinal: soft, non-tender, normal bowel sounds Extremities: no edema (L foot dressing/vac +) Hosp A/P (1) DM (diabetes mellitus), type 2, uncontrolled Code(s): E11.65 - TYPE 2 DIABETES MELLITUS WITH HYPERGLYCEMIA Qualifiers: Glycemic state: with hypoglycemia (2) HTN (hypertension) Code(s): I10 - ESSENTIAL (PRIMARY) HYPERTENSION Qualifiers: (3) Hypokalemia Code(s): E87.6 - HYPOKALEMIA Status: Acute (4) Morbid obesity with BMI of 40.0-44.9, adult Code(s): E66.01 - MORBID (SEVERE) OBESITY DUE TO EXCESS CALORIES; Z68.41 - BODY MASS INDEX (BMI) 40.0-44.9, ADULT (5) Anemia, normocytic normochromic Code(s): D64.9 - ANEMIA, UNSPECIFIED Status: Chronic (6) CKD (chronic kidney disease) stage 3, GFR 30-59 ml/min Code(s): N18.3 - CHRONIC KIDNEY DISEASE, STAGE 3 (MODERATE) Status: Acute (7) Diabetic neuropathy Code(s): E11.40 - TYPE 2 DIABETES MELLITUS WITH DIABETIC NEUROPATHY, UNSP Status: Acute Qualifiers: Diabetes mellitus type: type 2 - Plan DVT proph w/lovenox, DVT proph w/SCDs Cont 15 units 70/30 BID-WM. - Patient takes 70 units in AM and 40 units PM Cont sliding scale Cont Lyrica On IV Zosyn Cont other meds as above
--- NOTE | 2019-02-15 16:03 | PRG ---
DATE OF SERVICE: 02/15/2019 SUBJECTIVE: This is a 48-year-old female, who come into evaluation of left foot pain and infection. The patient underwent debridement and amputation of the second and third left toe. Currently, she is on wound care and wound VAC. She has been doing well. Pain is well controlled. She developed no fever or shortness of breath, tolerated with regular diet. OBJECTIVE: GENERAL: The patient is alert, awake, and oriented x3 with no acute distress. VITAL SIGNS: Temperature 98.5, pulse 83, O2 saturation 95% on room air, respiratory rate 18, and blood pressure 139/71. LUNGS: Clear bilaterally. HEART: Regular rate and rhythm. ABDOMEN: Soft and nondistended. EXTREMITIES: Left extremity amputated second and third toe on wound VAC. Wound VAC is working well. Dressing clean and intact. NEUROLOGIC: Chronic neuropathy and reduced fixation in both lower feet due to diabetes. DIAGNOSES: 1. Status post second and third toe amputation due to diabetic foot infection. 2. History of hypertension and diabetes. PLAN: Continue pain control. Continue wound care and wound VAC. Dr. Dickens will see the patient tomorrow to determine if the patient will be discharged then, the patient with be arranged with home wound VAC and [facility] wound VAC outpatient care. The patient will be arranged to see Dr. Vega in the office in 2 to 3 weeks. Job ID: [id number] [facility]
[2019-02-15] MEDS: Enoxaparin Sodium 40 MG/0.4 ML SYRINGE SC SCH (20:36)
[2019-02-16] MEDS: Piperacillin/Tazobactam 4.5 GM in Sodium Chloride 0.9% 100 ML IVPB SCH ×4 (00:05→17:14)
[2019-02-16] MEDS: traMADol HCl 50 MG TAB PO PRN ×3 (00:05→20:34)
--- NOTE | 2019-02-16 01:16 | PRG ---
DATE OF SERVICE: 02/16/2019 SUBJECTIVE: Patient is currently on the medicine floor. She is status post amputations of her left second and third toes due to complications of her diabetes. She has a wound VAC in place and she is currently awaiting arrangements for her discharge with home VAC or VAC. Patient's pain is controlled. She is tolerating a diet. OBJECTIVE: VITAL SIGNS: Stable. Patient is afebrile. GENERAL: Patient appears to be resting comfortably. Her wound VAC is in place and appears to be functioning properly. Patient does not appear to be in any distress. ASSESSMENT: Status post amputation of left second and third toes due to diabetic complications. PLAN: Plan will be to continue supportive care. Await for the arrangement of her home VAC and then discharge at that time. The patient will have followup with Dr. Vega per his instructions. Job ID: [id number]
[2019-02-16] MEDS: Saccharomyces boulardii 250 MG CAP PO SCH (08:45)
[2019-02-16] MEDS: HumuLIN 70/30 (300 UNITS/3 ML VIAL) SC SCH ×2 (08:45→16:42)
[2019-02-16] MEDS: Pregabalin 75 MG CAP PO SCH ×2 (08:47→20:29)
[2019-02-16] MEDS: Loperamide HCl 2 MG CAP PO PRN ×2 (08:51→17:20)
[2019-02-16] MEDS: Acetaminophen/Codeine 30-300mg Tablet PO PRN (11:35)
--- NOTE | 2019-02-16 18:37 | PDOC.HOSPP ---
- Subjective Encounter Date: 02/16/19 Encounter Time: 09:40 Subjective: Pt seen for followup re: DM2. Says she feels fine. No complaints today. - Objective Vital Signs & Weight: Vital Signs (12 hours) Temp Pulse Resp BP Pulse Ox 02/16/19 16:00 97.8 F 82 18 152/86 H 97 02/16/19 08:00 97 02/16/19 07:00 98.2 F 95 18 152/83 H 97 Weight Admit Weight 219 lb Weight 219 lb I&O: 02/15/19 02/16/19 02/17/19 06:59 06:59 06:59 Intake Total 9293 730 5668 Balance 1424 524 3829 Result Diagrams: 02/13/19 05:20 02/15/19 05:03 Additional Labs: Accuchecks 02/16/19 02/16/19 02/16/19 15:56 11:47 04:43 POC Glucose 145 H 103 118 H 02/15/19 02/14/19 20:27 21:15 POC Glucose 132 H 39 L* labs and MARs reviewed by me ROS - Review of Systems Respiratory: denies: cough, shortness of breath, SOB with excertion, pleuritic pain, wheezing, other Cardiovascular: denies: chest pain, palpitations, orthopnea, paroxysmal noc. dyspnea, edema, light headedness - Medication Medications: Active Medications Generic Name Dose Route Start Last Admin Trade Name Freq PRN Reason Stop Dose Admin Acetaminophen/Codeine Phosphate 1 tab 02/12/19 19:29 02/16/19 11:35 Tylenol #3 PO 1 tab Q6H PRN Administration Moderate Pain (4-6) Enoxaparin Sodium 40 mg 02/12/19 21:00 02/15/19 20:36 Lovenox SC 40 mg 2100 BOGDAN Administration Piperacillin Sod/Tazobactam 100 mls @ 200 mls/hr 02/12/19 23:59 02/16/19 17: 14 Sod 4.5 gm/ Sodium Chloride IVPB 100 mls Q6HR BOGDAN Administration Dextrose/Water 1,000 mls @ 0 mls/hr 02/13/19 17:14 02/13/19 17:38 D5w IV 1,000 mls .Q0M PRN Administration Hypoglycemia As Directed Insulin Human Isoph/Insulin Regular 15 units 02/15/19 08:00 02/16/19 16:42 Humulin 70/30 SC 15 unit BID-WM BOGDAN Administration Insulin Human Lispro 0 units 02/12/19 19:22 02/12/19 22:51 Humalog SC 4 unit .MODERATE SLIDING SC PRN Administration Moderate Correctional Scale Loperamide HCl 2 mg 02/13/19 17:13 02/16/19 17:20 Imodium PO 2 mg PRN PRN Administration Diarrhea/Loose Stools Pantoprazole Sodium 40 mg 02/13/19 09:00 02/16/19 08:46 Protonix PO 40 mg DAILY BOGDAN Administration Pregabalin 150 mg 02/12/19 21:00 02/16/19 08:47 Lyrica PO 150 mg BID BOGDAN Administration Saccharomyces Boulardii 250 mg 02/13/19 09:00 02/16/19 08:45 Florastor PO 250 mg DAILY BOGDAN Administration Sodium Chloride 10 ml 02/12/19 19:22 02/16/19 17:15 Flush - Normal Saline IVF 10 ml PRN PRN Administration Saline Flush Tramadol HCl 100 mg 02/12/19 19:27 02/16/19 08:46 Ultram PO 100 mg Q6H PRN Administration Moderate to Severe Pain (6-10) - Exam General - other findings: Morbid obesity Eye: anicteric sclera ENT: normocephalic atraumatic, moist mucosa Neck: supple, no thyromegaly Heart: RRR, no rubs Respiratory: no wheezes, no rales Gastrointestinal: soft, non-tender Skin: normal turgor Musculoskeletal - other findings: s/p R foot surgery Psychiatric: normal affect, normal behavior Hosp A/P (1) DM2 (diabetes mellitus, type 2) Status: Chronic (2) HTN (hypertension) Code(s): I10 - ESSENTIAL (PRIMARY) HYPERTENSION Status: Chronic Qualifiers: (3) Morbid obesity with BMI of 40.0-44.9, adult Code(s): E66.01 - MORBID (SEVERE) OBESITY DUE TO EXCESS CALORIES; Z68.41 - BODY MASS INDEX (BMI) 40.0-44.9, ADULT Status: Chronic - Plan Reasonable control of blood sugars. Blood pressures high, start scheduled hydralazine. CKD stable.
[2019-02-16] MEDS: hydrALAZINE 25 MG TAB PO SCH (20:28)
[2019-02-16] MEDS: Enoxaparin Sodium 40 MG/0.4 ML SYRINGE SC SCH (20:28)
--- NOTE | 2019-02-16 21:23 | PRG ---
DATE OF SERVICE: 02/16/2019 SUBJECTIVE: Ms. Olson had some drainage and leakage from her VAC dressing over the weekend and this was replaced yesterday, so she is not due for a VAC change today. The Wound Care Team is going to come by tomorrow. Her VAC dressing is in place and her remaining toes appear pink and warm. She is hemodynamically stable and not having excessive pain or any fevers. I will check her wound with the Wound Care Team tomorrow. She will be ready for discharge once her home VAC is approved. Job ID: [id number]
[2019-02-17] MEDS: Piperacillin/Tazobactam 4.5 GM in Sodium Chloride 0.9% 100 ML IVPB SCH ×3 (00:24→11:48)
[2019-02-17] MEDS: traMADol HCl 50 MG TAB PO PRN ×2 (04:34→12:02)
[2019-02-17] MEDS: Acetaminophen/Codeine 30-300mg Tablet PO PRN ×2 (09:05→17:11)
[2019-02-17] MEDS: Pregabalin 75 MG CAP PO SCH (09:06)
[2019-02-17] MEDS: hydrALAZINE 25 MG TAB PO SCH ×2 (09:07→15:40)
[2019-02-17] MEDS: Saccharomyces boulardii 250 MG CAP PO SCH (09:07)
[2019-02-17] MEDS: HumuLIN 70/30 (300 UNITS/3 ML VIAL) SC SCH ×2 (09:08→17:20)
[2019-02-17] MEDS: Loperamide HCl 2 MG CAP PO PRN (09:13)
[2019-02-17] MEDS: HumaLOG 300 UNITS/3 ML VIAL SC PRN (11:51)
[2019-02-17 12:02] VITALS: TEMP 98.2
[2019-02-17 15:54] VITALS: BP 103/62
== END 2019-02-17 17:43 | disposition home or self-care (01) | DRG 617 ==
LOC: SDC 16:43 → 3SE 20:04 → T4-A 02-13 11:07
PROVIDERS: ADMIT Specialist; ATTEND Specialist
PROC: 0Y6S0Z1 Detachment at Left 2nd Toe, High, Open Approach (ICD-10-PCS; principal; 2019-02-12)
PROC: 0Y6N0ZC Detachment at Left Foot, Partial 3rd Ray, Open Approach (ICD-10-PCS; 2019-02-12)
DX: E11.628 Type 2 diabetes mellitus with other skin complications (principal); L03.116 Cellulitis of left lower limb; Z68.41 Body mass index [BMI] 40.0-44.9, adult; E87.6 Hypokalemia; E66.01 Morbid (severe) obesity due to excess calories; E11.65 Type 2 diabetes mellitus with hyperglycemia; D64.9 Anemia, unspecified; N18.3 Chronic kidney disease, stage 3 (moderate); I12.9 Hypertensive chronic kidney disease with stage 1 through stage 4 chronic kidney disease, or unspecified chronic kidney disease; E11.40 Type 2 diabetes mellitus with diabetic neuropathy, unspecified; E11.22 Type 2 diabetes mellitus with diabetic chronic kidney disease; E11.649 Type 2 diabetes mellitus with hypoglycemia without coma; Z98.890 Other specified postprocedural states; Z79.4 Long term (current) use of insulin
CPT/HCPCS: 36415; 36416; 80048; 80053; 83036; 83735; 85025; 87070; 87205; 88305; 88311; J1650; J1815; J2250; J2270; J2543; J3010; J3490; Q0162

== ENCOUNTER 2019-02-20 10:12 | Outpatient (CLI) | payer SELFPAY ==
[2019-02-20] MEDS ORDERED: Sodium Chloride 0.9% 15 ML NEB ONE (11:11)
== END 2019-02-20 10:13 | disposition home or self-care (01) ==
LOC: WCC 10:12
PROVIDERS: ATTEND Family Medicine
DX: T81.89XD Other complications of procedures, not elsewhere classified, subsequent encounter (principal); Z89.422 Acquired absence of other left toe(s)
CPT/HCPCS: 97605; A4218

== ENCOUNTER 2019-02-22 22:57 | Observation (INO) | payer SELFPAY ==
[2019-02-22 23:40] LABS: #Basophils 0.1 thou/uL (0.0-0.2); #Eosinphils 0.1 thou/uL (0.0-0.7); #Lymphocytes 4.2 thou/uL (1.20-3.40); #Neutrophils 13.6 thou/uL (1.40-6.50); %Basophils 0.4 % (0.0-1.0); %Eosinophils 0.7 % (0.0-10.0); %Lymphocytes 22.3 % (21.0-51.0); %Monocytes 5.2 % (0.0-10.0); %Neutrophils 71.5 % (42.0-75.0); Hemoglobin 11.8 g/dL (12.0-16.0); Mean Corpuscular HGB CONC 33.2 g/dL (32.0-36.0); Mean Corpuscular Hemoglobin 26.7 pg (27.0-31.0); Mean Corpuscular Volume 80.5 fL (78.0-98.0); Mean Platelet Volume 8.1 fL (7.4-10.4); Platelet Count 380 thou/uL (130-400); RBC Distribution Width 15.3 % (11.5-14.5); Red Blood Cell (RBC) Count 4.42 mill/uL (4.20-5.40)
[2019-02-23] LABS: ALT (SGPT) 27 U/L (8-55); AST (SGOT) 26 U/L (5-34); Albumin 3.8 g/dL (3.5-5.0); Alkaline Phosphatase 123 U/L (40-150); Anion Gap 17 mmol/L (10-20); BUN (Urea Nitrogen) 26 mg/dL (7.0-18.7); Bilirubin, Total 0.3 mg/dL (0.2-1.2); Calc. Creatinine Clearance 0 mL/min (70-130); Calcium 9.3 mg/dL (7.8-10.44); Carbon Dioxide 23 mmol/L (22-29); Chloride 101 mmol/L (98-107); Estimated GFR-MDRD 27; Globulin 3.8 g/dL (2.4-3.5); Glucose 264 mg/dL (70-105); Potassium 3.9 mmol/L (3.5-5.1); Protein, Total 7.6 g/dL (6.0-8.3); Sodium 137 mmol/L (136-145)
--- NOTE | 2019-02-23 00:24 | RAD ---
RADIOGRAPH CHEST 1 VIEW: DATE: 02/23/2019 12:00 AM HISTORY: 48-year-old female with chest pain FINDINGS: The visualized lung bragg are clear. The cardiomediastinal silhouette and hilar shadows are normal. The lateral costophrenic angles are sharp. The osseous structures appear normal. There is no pneumothorax. IMPRESSION: Negative.
[2019-02-23 01:32] LABS: Bacteria/HPF None Seen HPF (None Seen); Bilirubin Negative (Negative); Blood, Urine Negative (Negative); Clarity Clear (Clear); Glucose, Urine (Dipstick) 70 mg/dL (Negative); Leukocyte 75 Leu/uL (Negative); Nitrite Negative (Negative); Protein, Urine (Dipstick) 20 mg/dL (Neg-Trace); RBC/HPF 0-3 HPF (0-3); Squamous Epithelial 0-3 HPF (0-3); Urobilinogen Normal mg/dL (Less than 2)
[2019-02-23 01:33] LABS: Pregnancy Test - Urine (BHCG) Negative (Negative); Pregu Control Background? CLEAR/WHITE (CLR/WHITE); Pregu Control Bar Appear? YES (CONTROL BAR); Specific Gravity 1.008 (1.002-1.036)
[2019-02-23 03:38] LABS: Troponin I 0.011 ng/mL (< 0.028)
[2019-02-23 03:45] VITALS: BMI 40.1
[2019-02-23] MEDS: traMADol HCl 50 MG TAB PO PRN ×3 (05:43→21:02)
[2019-02-23 07:00] LABS: Troponin I Less than 0.010 ng/mL (< 0.028)
[2019-02-23] MEDS ORDERED: Insulin Regular 300 UNITS/3 ML VIAL SC PRN ×2 (07:31)
[2019-02-23] MEDS ORDERED: Dextrose 5% in Water 1,000 ML IV PRN (07:31)
[2019-02-23] MEDS ORDERED: Dextrose 50% Abboject 50 ML SYRINGE SLOW IVP PRN (07:31)
--- NOTE | 2019-02-23 07:59 | CT ---
PRELIMINARY REPORT/[facility]/EMERGENCY AFTER HOURS PROCEDURE: EXAM: CT Head Without Contrast EXAM DATE/TIME: 02/23/2019 12:10 AM CLINICAL HISTORY: 48 years old, female; Syncope and collapse; Patient HX: 48 y/o F presents to ED via EMS transport S/P syncopal episode. She states that she last remembered opening her fridge to get some food, then she next remembers waking on the floor. She is unsure as to how long she was down. Prior to the event, PT had become lightheaded. She describes that, throughout the day, she had been nauseated and vomited 4-5 times, had a few episodes of "orange, jelly" diarrhea, experienced MAYO, and had interm ittent substernal cp and dyspnea. Denies cough, fever, chills, urinary symptoms, abd pain. PT describes that her recent bld glu has been well controlled, most recent a1c of 9. No h/o dvt ,pe. No ocp use. Recent surgery, S/P toe amputation due to wound complication. TECHNIQUE: Imaging protocol: Computed tomography images of the head without contrast. COMPARISON: No relevant prior studies available. FINDINGS: Brain: Normal. No hemorrhage. Unremarkable white matter. No mass effect. Ventricles: Normal. No ventriculomegaly. Bones/joints: Unremarkable. No acute fracture. Sinuses: Visualized sinuses are unremarkable. No fluid levels. Mastoid air cells: Visualized mastoid air cells are well aerated. No mastoid effusion. Soft tissues: Unremarkable. IMPRESSION: No acute intracranial abnormality. Thank you for allowing us to participate in the care of your patient. Dictated and Authenticated by: Heather Joshi MD 02/23/2019 12:24 AM Central Time ([place] & [place]) FINAL REPORT HEAD CT WITHOUT CONTRAST: Date: 02/22/19 HISTORY: Headache. COMPARISON: 12/14/17. FINDINGS: No hemorrhage or extra-axial hematoma. Brain volume is age-appropriate. No evidence of hydrocephalus. Cortical leon-white matter differentiation preserved. Intact calvarium. Adequate aeration of sinuses and mastoid air cells. IMPRESSION: This report is in agreement with the preliminary report by [facility]. No acute intracranial process. POS: [facility]
[2019-02-23] MEDS ORDERED: Ondansetron ODT 4 MG TAB PO PRN (08:37)
[2019-02-23] MEDS ORDERED: Ondansetron PF 4 MG/2 ML Vial IVP PRN (08:37)
[2019-02-23] MEDS ORDERED: Acetaminophen 325 MG TAB PO PRN (08:37)
[2019-02-23] MEDS: HumuLIN 70/30 (300 UNITS/3 ML VIAL) SC SCH (08:51)
--- NOTE | 2019-02-23 10:04 | ULT ---
EXAM: Bilateral lower extremity venous ultrasound HISTORY: Elevated d-dimer COMPARISON: None TECHNIQUE: Multiplanar grayscale and color Doppler images were obtained in a bilateral lower extremit y venous ultrasound. Spectral analysis of the Doppler waveforms were performed. FINDINGS: The bilateral common femoral vein, profunda femoral veins, superficial femoral veins, and p opliteal veins are normal in appearance without visible thrombus. These vessels demonstrate normal compression, flow, and augmentation. The bilateral posterior tibial veins, profunda femoral veins and greater saphenous veins are patent w ithout evidence of DVT. IMPRESSION: No evidence of DVT.
[2019-02-23] MEDS: Enoxaparin Sodium 30 MG/0.3 ML SYRINGE SC SCH (11:46)
[2019-02-23] MEDS: Sodium Chloride 0.9% 1,000 ML IV SCH ×2 (11:47→21:49)
[2019-02-23 12:15] LABS: Anion Gap 19 mmol/L (10-20); BUN (Urea Nitrogen) 25 mg/dL (7.0-18.7); Calc. Creatinine Clearance 68 mL/min (70-130); Calcium 9.2 mg/dL (7.8-10.44); Carbon Dioxide 19 mmol/L (22-29); Chloride 102 mmol/L (98-107); Estimated GFR-MDRD 35; Glucose 184 mg/dL (70-105); Potassium 3.6 mmol/L (3.5-5.1); Sodium 136 mmol/L (136-145)
[2019-02-23 12:18] LABS: Free T4 (Free Thyroxine) 1.19 ng/dL (0.70-1.48); Thyroid Stimulating Hormone 0.474 uIU/mL (0.35-4.94)
[2019-02-23 12:20] LABS: #Eosinphils 0.3 thou/uL (0.0-0.7); #Lymphocytes 5.1 thou/uL (1.20-3.40); #Monocytes 1.2 thou/uL (0.11-0.59); %Basophils 0.2 % (0.0-1.0); %Eosinophils 1.8 % (0.0-10.0); %Lymphocytes 28.7 % (21.0-51.0); %Neutrophils 62.3 % (42.0-75.0); Mean Corpuscular HGB CONC 32.3 g/dL (32.0-36.0); Mean Corpuscular Hemoglobin 25.7 pg (27.0-31.0); Mean Corpuscular Volume 79.8 fL (78.0-98.0); Mean Platelet Volume 9.1 fL (7.4-10.4); Platelet Count 333 thou/uL (130-400); RBC Distribution Width 15.4 % (11.5-14.5); Red Blood Cell (RBC) Count 4.65 mill/uL (4.20-5.40); White Blood Cell (WBC) Count 17.6 thou/uL (4.8-10.8)
--- NOTE | 2019-02-23 12:21 | NM ---
VQ SCAN: DATE: 02/23/19 HISTORY: Chest pain. TECHNIQUE: A ventilation perfusion scan was performed using 10 mCi Xenon-133 by inhalation for the ventilation s tudy followed by the intravenous administration of 6 mCi technetium-99m MAA for the perfusion scan. FINDINGS: Fairly homogeneous tracer distribution is seen in the lung bragg on both ventilation and perfusion s cans without mismatched, pleural based, wedge-shaped, segmental or subsegmental perfusion defects. Th ere is mild tracer retention on the washout phase of the ventilation study consistent with COPD. Correlation was made with the chest radiograph of previous day. IMPRESSION: Very low probability for pulmonary embolism. POS: [facility]
[2019-02-23] MEDS ORDERED: Loperamide HCl 2 MG CAP PO SCH (15:00)
[2019-02-23] MEDS: Meclizine HCl 12.5 MG TAB PO PRN ×2 (15:55→21:03)
[2019-02-23] MEDS ORDERED: HumuLIN 70/30 (300 UNITS/3 ML VIAL) SC SCH (21:00)
[2019-02-23] MEDS: Pregabalin 75 MG CAP PO SCH (21:01)
--- NOTE | 2019-02-23 22:11 | HP ---
PRIMARY CARE PHYSICIAN: Sada Aranda MD CHIEF COMPLAINT: Syncope. HISTORY OF PRESENT ILLNESS: Ms. Olson is a 48-year-old female with past medical history of diabetes mellitus type 2, diabetic neuropathy, migraine headaches, and vertigo. She had presented to [facility] late last night due to a syncopal episode and a fall at home. She states that over the last week to week and a half, she had several bouts of nausea, vomiting, and diarrhea. She had felt dehydrated and had walked over to the kitchen to the refrigerator to get out some juice and next thing she knew she was waking up on the ground. She had denied any headache, blurred vision, any chest pain, palpitations, or shortness of breath. She states that due to the fall, she had some mild side pain; however, this shortly resolved. She states prior to falling, she had felt slightly dizzy and diaphoretic with some generalized weakness. She had also reported nausea, vomiting, and diarrhea, which she expressed 5 to 10 bouts per day. She was recently hospitalized for a toe amputation with Dr. Vega. She was started on oral Augmentin and later sent home for an outpatient followup, the patient states that she has been taking this daily; however, noticed some GI upset with this and persistent nausea, vomiting, and diarrhea daily. She was given a IV fluid bolus of normal saline, serial troponins were found to be negative. She was noted to have a slight acute kidney injury with a creatinine of 2.01 with an estimated GFR of 27 and a BUN of 26. The patient's D-dimer was elevated at 3.28. However, V/Q scan and a lower extremity Doppler were both negative for PE and DVT at this time. Urine was also negative and repeat CBC showed a slightly elevated white blood cell count, which had trended down from 19 to 17.6. C. diff was also negative. Therefore, she was treated with oral Imodium. CT of brain and portable chest x-ray were both found to be unremarkable. REVIEW OF SYSTEMS: All other systems reviewed and found to be negative unless mentioned in the HPI. PAST MEDICAL HISTORY: Diabetes mellitus type 2, diabetic neuropathy, vertigo, migraine headaches, and history of cyst of kidney. PAST SURGICAL HISTORY: section x3, cyst removed on the left shoulder blade and toe amputation x2 on her left foot. PSYCHIATRIC HISTORY: Includes depression. SOCIAL HISTORY: The patient is a former smoker. She used to smoke cigarettes and she quit about 3 to 4 months ago. She had denied any alcohol or illicit drug use and she currently lives at home with her family. KNOWN ALLERGIES: Iodine. CURRENT HOME MEDICATIONS: 1. Augmentin 875/125 mg oral b.i.d. 2. Tramadol 50 mg p.o. q.i.d. 3. Humulin 70/30, 40 units q.p.m. and 70 units q.a.m. 4. Pregabalin 150 mg p.o. b.i.d. 5. Florastor 250 mg p.o. daily. PHYSICAL EXAMINATION: VITAL SIGNS: BP 136/74, pulse 86, respirations 16, temperature 98.3, O2 saturation 98% on room air. GENERAL: The patient is awake, alert, and oriented x3, currently lying comfortably in bed, in no acute distress. NECK: Soft, supple. Trachea midline. CARDIOVASCULAR: Positive S1 and S2. Regular rate and rhythm. No murmur auscultated. RESPIRATORY: Clear to auscultation bilaterally. No wheezes, rales, or rhonchi. ABDOMEN: Soft, nontender. Bowel sounds hyperactive, nondistended. MUSCULOSKELETAL: Strength 5+ bilaterally in upper and lower extremities. Moves all extremities equal. No edema noted. The patient is status post left toe amputation with a dry and clean dressing intact on the left foot, 2nd and 3rd toe. NEUROLOGIC: Cranial nerves 2 through 12 grossly intact. No focal deficits noted. Speech intact and normal. Gait not assessed. SKIN: Warm, dry and intact. No rashes. No ulceration noted. Left foot findings as above. PSYCHIATRIC: Good mood and affect. LABORATORY DATA: WBC 17.6, RBC 4.65, hemoglobin 12.0, platelet 333. D-dimer is 3.28. Sodium 136, potassium 3.6, anion gap 19, BUN 25, creatinine 1.58, estimated GFR 35, glucose 189. Troponin less than 0.010 x3, free T4 1.19, TSH 0.4740. Urinalysis indicated 4 to 6 hyaline casts, 4 to 6 WBCs, 75 leukocyte esterase and 70 glucose. Urine negative. DIAGNOSTIC IMAGING: Portable chest x-ray was negative for any acute findings. Brain CT was normal. ASSESSMENT AND PLAN: 1. Syncope, likely secondary to vasovagal from her dehydration secondary to frequent nausea, vomiting, and diarrhea. The patient's orthostatic vital signs unremarkable. Status post 1 L of normal saline. She will be continued on maintenance fluids at 100 mL an hour of normal saline. We will start her on meclizine due to her underlying chronic vertigo. 2. Nausea, vomiting, diarrhea. C diff is negative at this time. Therefore, she will be treated symptomatically with Zofran and Imodium. This is likely secondary to side effect from Augmentin. 3. History of diabetes mellitus type 2. Continue on home regimen with frequent Accu-Cheks and insulin sliding scale as needed. 4. History of migraines. Continue symptomatic treatment as needed. 5. Recent toe amputation on left foot. Continue with wound care. 6. Deep venous thrombosis and gastrointestinal prophylaxis. 7. Code status, full code. DISPOSITION: Pending further workup and clinical findings. Job ID: [id number]
[2019-02-23] MEDS: Loperamide HCl 2 MG CAP PO PRN (22:59)
[2019-02-23 23:10] LABS: Lactic Acid 1.4 mmol/L (0.5-2.2)
[2019-02-24] MEDS: Sodium Chloride 0.9% 1,000 ML IV SCH (03:38)
[2019-02-24] MEDS: traMADol HCl 50 MG TAB PO PRN (03:41)
[2019-02-24 05:41] LABS: #Eosinphils 0.3 thou/uL (0.0-0.7); #Lymphocytes 4.4 thou/uL (1.20-3.40); #Monocytes 0.7 thou/uL (0.11-0.59); #Neutrophils 6.6 thou/uL (1.40-6.50); %Basophils 0.4 % (0.0-1.0); %Eosinophils 2.8 % (0.0-10.0); %Lymphocytes 36.4 % (21.0-51.0); %Monocytes 6.1 % (0.0-10.0); %Neutrophils 54.3 % (42.0-75.0); Hemoglobin 11.2 g/dL (12.0-16.0); Mean Corpuscular HGB CONC 33.1 g/dL (32.0-36.0); Mean Corpuscular Hemoglobin 27.1 pg (27.0-31.0); Mean Corpuscular Volume 81.9 fL (78.0-98.0); Mean Platelet Volume 8.2 fL (7.4-10.4); Platelet Count 337 thou/uL (130-400); RBC Distribution Width 15.1 % (11.5-14.5); Red Blood Cell (RBC) Count 4.12 mill/uL (4.20-5.40); White Blood Cell (WBC) Count 12.1 thou/uL (4.8-10.8)
[2019-02-24 06:05] LABS: Anion Gap 17 mmol/L (10-20); BUN (Urea Nitrogen) 22 mg/dL (7.0-18.7); Calc. Creatinine Clearance 88 mL/min (70-130); Calcium 8.9 mg/dL (7.8-10.44); Carbon Dioxide 21 mmol/L (22-29); Chloride 103 mmol/L (98-107); Estimated GFR-MDRD 48; Glucose 146 mg/dL (70-105); Potassium 3.6 mmol/L (3.5-5.1); Sodium 137 mmol/L (136-145)
[2019-02-24] MEDS: Enoxaparin Sodium 30 MG/0.3 ML SYRINGE SC SCH (08:02)
[2019-02-24] MEDS: Pregabalin 75 MG CAP PO SCH (08:03)
[2019-02-24] MEDS: HumuLIN 70/30 (300 UNITS/3 ML VIAL) SC SCH (08:05)
[2019-02-24] MEDS ORDERED: Saccharomyces boulardii 250 MG CAP PO SCH (09:00)
[2019-02-24] MEDS ORDERED: Sodium Chloride 0.9% 500 ML IV SCH (09:45)
[2019-02-24] MEDS: Loperamide HCl 2 MG CAP PO PRN (11:55)
[2019-02-24 12:17] VITALS: BP 129/64; TEMP 97.9
--- NOTE | 2019-02-28 13:32 | EKG ---
Test Reason : Blood Pressure : / mmHG Vent. Rate : 085 BPM Atrial Rate : 085 BPM P-R Int : 148 ms QRS Dur : 084 ms QT Int : 400 ms P-R-T Axes : 037 -34 024 degrees QTc Int : 476 ms Normal sinus rhythm Left axis deviation Moderate voltage criteria for LVH, may be normal variant Abnormal ECG Confirmed by AVIVA MERINO DO ([id number]), loan expeditor DIEUDONNE CHAVIS ([id number]) on 02/28/2019 1:31:57 PM Referred By: Confirmed By:AVIVA MERINO DO
== END 2019-02-24 12:58 | disposition home or self-care (01) ==
LOC: ERS 22:57 → 2SW 02-23 01:21
PROVIDERS: ADMIT Hospitalist; ATTEND Hospitalist
DX: R55 Syncope and collapse (principal); R42 Dizziness and giddiness; R19.7 Diarrhea, unspecified; R11.2 Nausea with vomiting, unspecified; E11.40 Type 2 diabetes mellitus with diabetic neuropathy, unspecified; G43.909 Migraine, unspecified, not intractable, without status migrainosus; F32.9 Major depressive disorder, single episode, unspecified; Z79.4 Long term (current) use of insulin; Z79.899 Other long term (current) drug therapy; Z87.891 Personal history of nicotine dependence; Z91.041 Radiographic dye allergy status
CPT/HCPCS: 36415; 36416; 70450; 71045; 78582; 80048; 80053; 81003; 81015; 81025; 83605; 84145; 84439; 84443; 84484; 85025; 85379; 87040; 87077; 87086; 87186; 87324; 87449; 93005; 93970; 96360; 96361; 96372; A9540; A9558; G0378; J1650; J1815; J8597

== ENCOUNTER 2019-02-27 13:18 | Outpatient (CLI) | payer SELFPAY ==
[~2019-02-27 13:18] MED LIST changes: -Heparin 1,000 UNITS/ML VIAL ONE; +Sodium Chloride 0.9% 15 ML NEB ONE
== END 2019-02-27 13:19 | disposition home or self-care (01) ==
LOC: WCC 13:18
PROVIDERS: ATTEND Family Medicine
DX: T81.89XD Other complications of procedures, not elsewhere classified, subsequent encounter (principal); Z89.422 Acquired absence of other left toe(s)
CPT/HCPCS: 97605; A4218

== ENCOUNTER 2019-03-03 15:47 | Outpatient (CLI) | payer SELFPAY | END 2019-03-03 15:48 | disposition home or self-care (01) | LOC: WCC 15:47 | PROVIDERS: ATTEND Family Medicine | DX: T81.89XD Other complications of procedures, not elsewhere classified, subsequent encounter (principal); Z89.422 Acquired absence of other left toe(s) | CPT/HCPCS: A4218 ==

== ENCOUNTER 2019-03-06 13:21 | Outpatient (CLI) | payer SELFPAY | END 2019-03-06 13:22 | disposition home or self-care (01) | LOC: WCC 13:21 | PROVIDERS: ATTEND Family Medicine | DX: T81.89XD Other complications of procedures, not elsewhere classified, subsequent encounter (principal); Z89.422 Acquired absence of other left toe(s) | CPT/HCPCS: 97605; A4218 ==

== ENCOUNTER 2019-03-23 09:01 | Inpatient (IN) | payer SELFPAY ==
[2019-03-23] MEDS ORDERED: Ketorolac Tromethamine 60 MG/2 ML VIAL ONE (10:18)
--- NOTE | 2019-03-23 10:46 | RAD ---
LEFT ANKLE 3 VIEWS: Date: 03/23/19 HISTORY: Fall with ankle pain. FINDINGS: There is soft tissue swelling around the ankle. There is no fracture, dislocation, or joint effusion. Calcaneal spurs are noted. IMPRESSION: No evidence of fracture. POS: OFF
[2019-03-23 11:11] LABS: #Basophils 0.1 thou/uL (0.0-0.2); #Eosinphils 0.1 thou/uL (0.0-0.7); #Lymphocytes 3.3 thou/uL (1.20-3.40); #Monocytes 1.4 thou/uL (0.11-0.59); #Neutrophils 14.2 thou/uL (1.40-6.50); %Basophils 0.3 % (0.0-1.0); %Eosinophils 0.6 % (0.0-10.0); %Lymphocytes 17.4 % (21.0-51.0); %Monocytes 7.4 % (0.0-10.0); %Neutrophils 74.3 % (42.0-75.0); Mean Corpuscular Hemoglobin 26.6 pg (27.0-31.0); Mean Corpuscular Volume 80.5 fL (78.0-98.0); Mean Platelet Volume 8.8 fL (7.4-10.4); Platelet Count 319 thou/uL (130-400); RBC Distribution Width 13.6 % (11.5-14.5); Red Blood Cell (RBC) Count 3.77 mill/uL (4.20-5.40); White Blood Cell (WBC) Count 19.2 thou/uL (4.8-10.8)
--- NOTE | 2019-03-23 11:12 | RAD ---
LEFT FOOT 2 VIEWS: Date: 03/23/19 HISTORY: Foot pain. COMPARISON: 02/05/19 study. FINDINGS: There has been amputation to the level of the mid shafts of the third and fourth metatarsals of the s econd and third toes. There is bony destructive change involving almost the entire residual fourth me tatarsal shaft. I do not see any bony destructive changes of any of the other metatarsals. IMPRESSION: Lytic changes involving the residual third metatarsal. Changes would be highly suspicious for osteomy elitis. No definite acute changes of the second metatarsal. POS: OFF
[2019-03-23 11:35] LABS: ALT (SGPT) 13 U/L (8-55); AST (SGOT) 15 U/L (5-34); Albumin 3.4 g/dL (3.5-5.0); Alkaline Phosphatase 116 U/L (40-150); Anion Gap 14 mmol/L (10-20); BUN (Urea Nitrogen) 31 mg/dL (7.0-18.7); Bilirubin, Total 0.4 mg/dL (0.2-1.2); CRP (Inflammatory) 30.77 mg/dL (= or < 0.5); Calc. Creatinine Clearance 0 mL/min (70-130); Calcium 8.9 mg/dL (7.8-10.44); Carbon Dioxide 22 mmol/L (22-29); Chloride 100 mmol/L (98-107); Estimated GFR-MDRD 43; Globulin 3.7 g/dL (2.4-3.5); Glucose 185 mg/dL (70-105); Potassium 4.2 mmol/L (3.5-5.1); Protein, Total 7.1 g/dL (6.0-8.3); Sodium 132 mmol/L (136-145)
[2019-03-23] MEDS ORDERED: cefTRIAXone\\ROCEPHIN 2 GM VIAL ONE (11:46)
[2019-03-23] MEDS ORDERED: Gadobenate Dimeglumine 529 MG/1 ML (20ML VIAL) ONE (13:22)
[2019-03-23] MEDS ORDERED: Heparin 1,000 UNITS/ML VIAL ONE (14:30)
[2019-03-23] MEDS ORDERED: Senokot S 8.6-50 MG TAB PO PRN (16:08)
[2019-03-23] MEDS ORDERED: Ondansetron ODT 4 MG TAB PO PRN (16:08)
[2019-03-23] MEDS ORDERED: Dextrose 50% Abboject 50 ML SYRINGE SLOW IVP PRN (16:08)
[2019-03-23] MEDS ORDERED: Ondansetron PF 4 MG/2 ML Vial IVP PRN (16:08)
[2019-03-23] MEDS ORDERED: Dextrose 5% in Water 1,000 ML IV PRN (16:08)
[2019-03-23] MEDS ORDERED: Bisacodyl 10 MG SUPP PR PRN (16:08)
[2019-03-23] MEDS ORDERED: Acetaminophen 325 MG TAB PO PRN (16:08)
--- NOTE | 2019-03-23 16:44 | HP ---
PRIMARY CARE PHYSICIAN: Sada Aranda MD CHIEF COMPLAINT: Worsening left foot swelling and pain. HISTORY OF PRESENT ILLNESS: A 48-year-old female with past medical history significant for diabetes, complicated with peripheral artery disease, diabetic neuropathy, and diabetic foot ulcer on the left side associated with wound infection, status post amputation of third toe in February 2019. The patient reportedly left home following the amputation with wound VAC, but the wound VAC was removed about a week ago due to malfunction. Since removal of the wound VAC, the patient has been doing wound care herself with [facility]. She reported worsening swelling of the left lower extremity as well as pain in the last several days. Two days ago, the patient had a fall following which the pain and swelling worsened and became unbearable earlier today, hence presentation to the emergency room. The patient denied fever, nausea, vomiting, chest pain, palpitation, dizziness, dysuria, hematuria, hematemesis, hematochezia, or change in bowel habit. Evaluation in the ER with CBC showed leukocytosis and x-ray of the foot showed features of osteomyelitis of the metatarsal. She was given a dose of vancomycin and Zosyn, and was admitted for further evaluation and treatment. PAST MEDICAL HISTORY: 1. Diabetes type 2. 2. Diabetic neuropathy. 3. Diabetic nephropathy. 4. Depression. 5. History of migraine. PAST SURGICAL HISTORY: 1. CS x3. 2. Cyst removal from left shoulder. 3. Left toe amputation. FAMILY HISTORY: Significant for hypertension in father as well as diabetes mellitus in both mother and father. SOCIAL HISTORY: The patient lives with family. She is a former smoker, but quit about 6 months ago. She denied alcohol or recreational drug use. ALLERGIES: IODINE. HOME MEDICATIONS: 1. 70/30 insulin 40 units in the morning and 30 units in the evening. 2. Pregabalin 150 mg p.o. b.i.d. 3. Meclizine 12.5 mg p.o. t.i.d. p.r.n. REVIEW OF SYSTEMS: A 12-point review of system performed was negative other than pertinent positives and negatives included in the history of present illness. PHYSICAL EXAMINATION: VITAL SIGNS: BP 101/58, pulse 68, respiratory rate 16, temperature 98.1, SpO2 of 98% on room air. Pain is rated at 9/10. GENERAL: Middle-aged female, in [id number] painful distress. Afebrile. Anicteric. Acyanotic. HEENT: Normocephalic and atraumatic. Oral mucosa is moist. NECK: Supple. Nontender with good range of motion. No lymphadenopathy or masses appreciated. CARDIOVASCULAR: Regular rhythm and rate with normal heart sounds 1 and 2. No obvious murmur was appreciated. RESPIRATORY: Good air entry bilaterally with no obvious crackle or rhonchi or use of accessory muscles. GI: Abdomen is obese, soft, nontender, nondistended with normal bowel sounds. EXTREMITIES: Left anterior foot wound with purulent discharge. There seems to be a tracking with pus coming out from deeper inside the foot. Erythema noted extending to the ankle as well as edema of the foot and leg. Other extremities are grossly normal looking, atraumatic with no edema or erythema. 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 Cranial nerves 2 through 12 are grossly intact. The patient moves all extremities. DIAGNOSTIC DATA: CBC showed WBC count of 19.2, hemoglobin of 10.0, MCV of 80.5, and platelet of 319. CMP showed sodium 132, potassium 4.2, chloride 100, CO2 of 22, BUN 31, creatinine 1.34, glucose 185, calcium 8.9, total bilirubin 0.4, AST 15, ALT 13, alkaline phosphatase 116, total protein 7.1, albumin 3.4, globulin 3.7. Lactic acid 1.9. C-reactive protein 30.77. Chest x-ray of left foot showed lytic changes involving the residual third metatarsal bone, highly suspicious for osteomyelitis. ASSESSMENT: 1. Left foot infected wound with osteomyelitis and possible abscess. 2. Left foot cellulitis. 3. Complicated diabetes mellitus. 4. History of depression. PLAN: 1. Start broad-spectrum antibiotics therapy with vancomycin and Zosyn. 2. Get wound and blood cultures. 3. Get MRI of left foot for further evaluation. 4. Consult General Surgery. Prior amputation was performed by Dr. Vega. 5. Aggressive insulin therapy will be commenced to get adequate glycemic control with Lantus and sliding scale insulin. 6. We will continue Lyrica for neuropathy. 7. DVT prophylaxis with Lovenox will be commenced. 8. We will also get left lower extremity DVT Doppler to rule out DVT. 9. Analgesic and antiemetic as needed will also be provided. 10. Code status, full code. Job ID: [id number]
--- NOTE | 2019-03-23 17:53 | MRI ---
EXAM: MRI of the left foot without and with contrast HISTORY: Fall 2 days ago with pain and swelling. Evaluate for possible colitis or abscess. COMPARISON: 02/08/2019 TECHNIQUE: Multiplanar multisequence MR images were obtained of the left foot without and with IV con trast. FINDINGS: The patient is status post amputation of the second and third toes through the distal metat arsals. Low T1 signal and enhancement is seen in the third metatarsal concerning for osteomyelitis. There is extensive edema and enhancement in the soft tissues consistent with cellulitis. No focal flu id collection is identified. IMPRESSION: Osteomyelitis of the third metatarsal without abscess formation
[2019-03-23] MEDS: Piperacillin/Tazobactam 4.5 GM in Sodium Chloride 0.9% 100 ML IVPB SCH (18:00)
[2019-03-23] MEDS: Sodium Chloride 0.9% 1,000 ML IV SCH (20:33)
[2019-03-23] MEDS: Pregabalin 75 MG CAP PO SCH (20:34)
[2019-03-23] MEDS: Famotidine 20 MG TAB PO SCH (20:36)
[2019-03-23] MEDS: Morphine 2 MG/ML SYRINGE SLOW IVP PRN (20:56)
[2019-03-23 21:03] VITALS: BMI 39.7
[2019-03-24] MEDS: Piperacillin/Tazobactam 4.5 GM in Sodium Chloride 0.9% 100 ML IVPB SCH ×5 (01:00→23:36)
[2019-03-24] MEDS: Morphine 2 MG/ML SYRINGE SLOW IVP PRN ×4 (01:19→20:33)
[2019-03-24] MEDS: HYDROcodone/Acetaminophen 5/325 mg Tablet PO PRN ×2 (04:21→23:40)
[2019-03-24] MEDS: HumaLOG 300 UNITS/3 ML VIAL SC PRN ×2 (04:44→15:44)
[2019-03-24] MEDS: Sodium Chloride 0.9% 1,000 ML IV SCH ×2 (05:00→17:38)
[2019-03-24] MEDS ORDERED: Mag-Al 1200 mg/1200 mg/30 ML UDCUP PO SCH (05:15)
[2019-03-24 05:35] LABS: #Basophils 0.1 thou/uL (0.0-0.2); #Eosinphils 0.3 thou/uL (0.0-0.7); #Lymphocytes 3.5 thou/uL (1.20-3.40); #Monocytes 0.9 thou/uL (0.11-0.59); #Neutrophils 12.5 thou/uL (1.40-6.50); %Basophils 0.3 % (0.0-1.0); %Eosinophils 1.5 % (0.0-10.0); %Lymphocytes 20.5 % (21.0-51.0); %Neutrophils 72.6 % (42.0-75.0); Hemoglobin 9.2 g/dL (12.0-16.0); Mean Corpuscular Volume 81.9 fL (78.0-98.0); Mean Platelet Volume 8.9 fL (7.4-10.4); Platelet Count 307 thou/uL (130-400); RBC Distribution Width 13.5 % (11.5-14.5); Red Blood Cell (RBC) Count 3.39 mill/uL (4.20-5.40); White Blood Cell (WBC) Count 17.2 thou/uL (4.8-10.8)
[2019-03-24 06:22] LABS: Anion Gap 13 mmol/L (10-20); BUN (Urea Nitrogen) 28 mg/dL (7.0-18.7); Calc. Creatinine Clearance 82 mL/min (70-130); Calcium 8.7 mg/dL (7.8-10.44); Carbon Dioxide 22 mmol/L (22-29); Chloride 102 mmol/L (98-107); Estimated GFR-MDRD 44; Glucose 235 mg/dL (70-105); Potassium 4.5 mmol/L (3.5-5.1); Sodium 132 mmol/L (136-145)
[2019-03-24] MEDS: Insulin Glargine 30 UNITS in Pre-Filled Syringe SC SCH (09:25)
[2019-03-24] MEDS: Pregabalin 75 MG CAP PO SCH ×2 (09:26→20:34)
[2019-03-24] MEDS: Famotidine 20 MG TAB PO SCH ×2 (09:26→20:34)
[2019-03-24] MEDS: Enoxaparin Sodium 40 MG/0.4 ML SYRINGE SC SCH (09:27)
--- NOTE | 2019-03-24 11:17 | ULT ---
RIGHT LOWER EXTREMITY ARTERIAL DOPPLER ULTRASOUND: 03/24/2019 HISTORY: Diabetic foot ulcer. COMPARISON: None. TECHNIQUE: Multiplanar leon-scale sonographic imaging of the arterial structures of the right lower extremity ob tained with color-flow and spectral analysis. FINDINGS: The right common femoral artery, profunda femoral artery, superficial femoral artery, popliteal arter y, anterior tibial artery, posterior tibial artery and dorsalis pedis artery are patent and demonstrate normal triphasic wave-forms. RIGHT LOWER EXTREMITY: VESSEL PEAK SYSTOLIC VELOCITY (cm per second) EVENT SERVICES MANAGER 111 PROFUNDA FEMORAL ARTERY 77 SFA PROXIMAL 108 SFA MID 99 SFA DISTAL 68 POPLITEAL 81 JOLYNN 57 EXECUTIVE SALES MANAGER 116 DPA 120 IMPRESSION: Unremarkable arterial Doppler ultrasound of the right lower extremity. Transcribed Date/Time: 03/24/2019 12:19 PM
--- NOTE | 2019-03-24 11:56 | ULT ---
RIGHT LOWER EXTREMITY VENOUS DUPLEX STUDY: Date: 03/24/19 INDICATION: Right lower extremity pain and edema. FINDINGS: Deep veins of right lower extremity evaluated with ultrasound and Doppler. Color Doppler, spectral an alysis, and compression studies performed. Deep veins of right lower extremity show normal blood flow and compression. No evidence of deep venou s thrombosis. IMPRESSION: No evidence of right lower extremity deep venous thrombosis. POS: OFF
--- NOTE | 2019-03-24 12:16 | CON ---
DATE OF CONSULTATION: HISTORY OF PRESENT ILLNESS: Jeanne Olson is a 48-year-old female, who has had previous left foot amputations on 02/18/2014. Dr. Raza performed incision and drainage of her back abscess on 02/09/2019. Dr. Vega explored a puncture wound of left foot with cellulitis and diabetic infection on 02/12/2019. The patient required amputation of left second and third toes and metatarsals. The patient had a wound VAC at home, being managed by outpatient [facility]. The patient at home could not maintain and is still on the wound VAC and it was discontinued. She has been treating this with [facility]. The patient presents on this occasion late yesterday evening with a diabetic left foot infection. MRI obtained revealed osteomyelitis changes of the second and third toes through the distal metatarsals. Third metatarsal revealed changes concerning for osteomyelitis. The patient has palpable pedal pulses. She is here on her feet. She does not have any evidence of PAD. Tobacco, none. She has been placed on vancomycin and Zosyn. She is on Humulin 70/30 of , tramadol p.r.n. pain, Imodium, meclizine, Lyrica. ALLERGIES: LACTOSE. PAST SURGICAL HISTORY: As noted above. Previous amputation of left second and third toes and metatarsals, C-sections, cyst removal from left shoulder. PAST MEDICAL HISTORY: Diabetes mellitus type 2, diabetic neuropathy, nephropathy, depression, history of migraines, diabetic foot wound, open wound of left foot. SOCIAL HISTORY: The patient lives with family. Tobacco abuse in the past. Cessation 6 to 7 months ago. MEDICATIONS: 1. 70/30 insulin . 2. Pregabalin. 3. Meclizine. PHYSICAL EXAMINATION: VITAL SIGNS: Height 5 feet 1 inch, weight 210 pounds, 39 BMI, temperature 98.1 degrees, heart rate 72, blood pressure 93/62. HEAD, EYES, EARS, NOSE, AND THROAT: Unremarkable. LUNGS: Clear to auscultation. CARDIAC: Regular rhythm without murmur or gallop. ABDOMEN: Soft and nontender. EXTREMITIES: Palpable femoral, popliteal, dorsalis pedis, and posterior tibial pulses. Open wound of left foot with healthy granulation tissue, redness, cellulitis over the dorsum of the foot. There is some purulent material in the wound of the foot. LABORATORY DATA: Cultures obtained last night, pending. Blood cultures, negative to date growth. ASSESSMENT AND PLAN: Diabetic left foot infection. I will return to the patient's wound, look at her plantar wound, and further assess her foot more than likely we will ask Wound Care to do saline wet-to-dry dressing every 2 to 3 days and arrange outpatient wound care and arrange oral antibiotics. Hopefully, surgical intervention would not be necessary, but I will need to re-examine her foot to look at the plantar wound and further assess it. Initial assessment reveals absence of any findings that would demand surgical intervention, but I need to re-examine her plantar foot. She does have hair on her toes, has palpable pedal pulses. No evidence of peripheral arterial disease. Job ID: [id number]
[2019-03-24] MEDS ORDERED: Heparin 1,000 UNITS/ML VIAL ONE (14:30)
[2019-03-24] MEDS: Vancomycin HCl 1.5 GM in Sodium Chloride 0.9% 250 ML 300 ML IVPB SCH (20:36)
[2019-03-25] MEDS: Piperacillin/Tazobactam 4.5 GM in Sodium Chloride 0.9% 100 ML IVPB SCH ×3 (05:49→17:47)
[2019-03-25] MEDS: HumaLOG 300 UNITS/3 ML VIAL SC PRN ×3 (05:51→17:49)
[2019-03-25] MEDS: Saccharomyces boulardii 250 MG CAP PO SCH (10:37)
[2019-03-25] MEDS: Morphine 2 MG/ML SYRINGE SLOW IVP PRN ×2 (10:37→15:47)
[2019-03-25] MEDS: Famotidine 20 MG TAB PO SCH ×2 (10:40→21:14)
[2019-03-25] MEDS: Enoxaparin Sodium 40 MG/0.4 ML SYRINGE SC SCH (10:40)
[2019-03-25] MEDS: Pregabalin 75 MG CAP PO SCH ×2 (10:41→21:13)
[2019-03-25] MEDS: Sodium Chloride 0.9% 1,000 ML IV SCH ×2 (10:41→22:29)
--- NOTE | 2019-03-25 14:30 | PDOC.HOSPP ---
- Subjective Encounter Date: 03/25/19 Encounter Time: 14:29 Subjective: Ms. Olson was seen today in follow-up of diabetic foot infection. She does not have any new complaints. - Objective Vital Signs & Weight: Vital Signs (12 hours) Temp Pulse Resp BP BP Pulse Ox 03/25/19 11:24 98.6 F 77 18 101/67 94 L 03/25/19 07:18 98.6 F 78 18 122/61 92 L 03/25/19 04:19 98.8 F 76 20 105/65 97 Weight Admit Weight 210 lb 9 oz Weight 210 lb 9 oz Result Diagrams: 03/24/19 05:02 03/24/19 05:02 Additional Labs: Accuchecks 03/25/19 03/25/19 03/24/19 11:26 04:47 19:32 POC Glucose 294 H 275 H 293 H 03/24/19 15:32 POC Glucose 288 H Hospitalist ROS - Medication Medications: Active Medications Generic Name Dose Route Start Last Admin Trade Name Freq PRN Reason Stop Dose Admin Hydrocodone Bitart/Acetaminophen 1 tab 03/23/19 16:08 03/24/19 23:40 [place] 5/325 PO 1 tab Q4H PRN Administration Moderate Pain (4-6) Enoxaparin Sodium 40 mg 03/24/19 09:00 03/25/19 10:40 Lovenox SC 40 mg 0900 BOGDAN Administration Famotidine 20 mg 03/23/19 21:00 03/25/19 10:40 Pepcid PO 20 mg BID BOGDAN Administration Insulin Glargine 30 units/ 0.3 mls @ 0 mls/hr 03/24/19 09:00 03/24/19 09:25 Miscellaneous Medication SC 0.3 mls QAM BOGDAN Administration Sodium Chloride 1,000 mls @ 75 mls/hr 03/23/19 16:15 03/25/19 10:41 Normal Saline 0.9% IV 1,000 mls .[id number] BOGDAN Administration Piperacillin Sod/Tazobactam 100 mls @ 200 mls/hr 03/23/19 18:00 03/25/19 12: 24 Sod 4.5 gm/ Sodium Chloride IVPB 100 mls Q6HR BOGDAN Administration Vancomycin HCl 1.5 gm/ Sodium 300 mls @ 200 mls/hr 03/24/19 21:00 03/24/19 20 :36 Chloride IVPB 300 mls 2100 BOGDAN Administration Insulin Human Lispro 0 units 03/23/19 16:08 03/25/19 12:25 Humalog SC 6 unit .MODERATE SLIDING SC PRN Administration Moderate Correctional Scale Morphine Sulfate 2 mg 03/23/19 16:18 03/25/19 10:37 Morphine SLOW IVP 2 mg Q4H PRN Administration Moderate to Severe Pain (6-10) Pregabalin 150 mg 03/23/19 21:00 03/25/19 10:41 Lyrica PO 150 mg BID BOGDAN Administration Saccharomyces Boulardii 250 mg 03/25/19 09:00 03/25/19 10:37 Florastor PO 250 mg DAILY BOGDAN Administration - Exam Eye: PERRL, anicteric sclera Heart: RRR, no murmur, no gallops, no rubs, normal peripheral pulses Respiratory: CTAB, no wheezes, no rales, no ronchi, normal chest expansion, no tachypnea, normal percussion Gastrointestinal: soft, non-tender, non-distended, normal bowel sounds, no palpable masses, no hepatomegaly, no splenomegaly Extremities: no cyanosis, no clubbing, no edema Hosp A/P (1) Diabetic foot infection Code(s): E11.628 - TYPE 2 DIABETES MELLITUS WITH OTHER SKIN COMPLICATIONS; L08.9 - LOCAL INFECTION OF THE SKIN AND SUBCUTANEOUS TISSUE, UNSP Status: Acute (2) Diabetic neuropathy Code(s): E11.40 - TYPE 2 DIABETES MELLITUS WITH DIABETIC NEUROPATHY, UNSP Status: Chronic Qualifiers: Diabetes mellitus type: type 2 (3) DM2 (diabetes mellitus, type 2) Status: Chronic (4) HTN (hypertension) Code(s): I10 - ESSENTIAL (PRIMARY) HYPERTENSION Status: Chronic Qualifiers: - Plan * Diabetic foot infection- she had the wound vac placed today * HTN- blood pressure is stable * DM-blood glucose has been elevated- will add a long acting insulin in the evening, and titrate up to her home dose * Home once cleared by General Surgery * Will order a cane or crutches to help with ambulation once she returns home.
[2019-03-25] MEDS: Insulin Glargine 30 UNITS in Pre-Filled Syringe SC SCH (17:47)
[2019-03-25] MEDS: HYDROcodone/Acetaminophen 5/325 mg Tablet PO PRN (17:51)
[2019-03-25 20:38] LABS: Vancomycin, Trough 13.9 ug/mL
[2019-03-25] MEDS ORDERED: Insulin Glargine 40 UNITS in Pre-Filled Syringe 1 EACH SC SCH (21:00)
[2019-03-25] MEDS: Vancomycin HCl 1.5 GM in Sodium Chloride 0.9% 250 ML 300 ML IVPB SCH (21:13)
[2019-03-26] MEDS: Piperacillin/Tazobactam 4.5 GM in Sodium Chloride 0.9% 100 ML IVPB SCH ×3 (00:15→12:44)
[2019-03-26] MEDS: HumaLOG 300 UNITS/3 ML VIAL SC PRN ×2 (05:45→17:35)
[2019-03-26] MEDS: Enoxaparin Sodium 40 MG/0.4 ML SYRINGE SC SCH (08:39)
[2019-03-26] MEDS: Saccharomyces boulardii 250 MG CAP PO SCH (08:39)
[2019-03-26] MEDS: Pregabalin 75 MG CAP PO SCH ×2 (08:40→20:34)
[2019-03-26] MEDS: Famotidine 20 MG TAB PO SCH ×2 (08:40→20:35)
[2019-03-26 09:15] LABS: #Eosinphils 0.4 thou/uL (0.0-0.7); #Monocytes 0.9 thou/uL (0.11-0.59); #Neutrophils 9.2 thou/uL (1.40-6.50); %Basophils 0.3 % (0.0-1.0); %Eosinophils 3.2 % (0.0-10.0); %Monocytes 6.7 % (0.0-10.0); %Neutrophils 67.8 % (42.0-75.0); Mean Corpuscular HGB CONC 30.9 g/dL (32.0-36.0); Mean Corpuscular Hemoglobin 25.3 pg (27.0-31.0); Mean Platelet Volume 8.3 fL (7.4-10.4); Platelet Count 390 thou/uL (130-400); RBC Distribution Width 13.4 % (11.5-14.5); Red Blood Cell (RBC) Count 3.95 mill/uL (4.20-5.40); White Blood Cell (WBC) Count 13.5 thou/uL (4.8-10.8)
[2019-03-26 09:35] LABS: Anion Gap 15 mmol/L (10-20); BUN (Urea Nitrogen) 14 mg/dL (7.0-18.7); Calc. Creatinine Clearance 83 mL/min (70-130); Calcium 9.1 mg/dL (7.8-10.44); Carbon Dioxide 26 mmol/L (22-29); Chloride 103 mmol/L (98-107); Estimated GFR-MDRD 45; Glucose 198 mg/dL (70-105); Potassium 3.7 mmol/L (3.5-5.1); Sodium 140 mmol/L (136-145)
[2019-03-26] MEDS: Insulin Glargine 30 UNITS in Pre-Filled Syringe SC SCH (09:52)
[2019-03-26] MEDS: Morphine 2 MG/ML SYRINGE SLOW IVP PRN (09:53)
[2019-03-26] MEDS: Sodium Chloride 0.9% 1,000 ML IV SCH (12:41)
[2019-03-26] MEDS: HYDROcodone/Acetaminophen 5/325 mg Tablet PO PRN ×2 (13:02→17:54)
--- NOTE | 2019-03-26 16:26 | PDOC.HOSPP ---
- Subjective Encounter Date: 03/26/19 Encounter Time: 10:22 Subjective: 48 y/o female in uncontrolled DM associated with diabetic foot ulcer/ osteomyelitis s/p partial amputation of 2and 3rd toes admitted with worsening wound,swelling and pain. MRI showed features of osteo and wound culture grew MRSA and strep. right foot. Swelling and pain with antibiotics and wound care - Objective Vital Signs & Weight: Vital Signs (12 hours) Temp Pulse Resp BP Pulse Ox 03/26/19 11:09 98.2 F 94 18 121/73 93 L 03/26/19 07:26 98.4 F 74 16 115/68 96 Weight Admit Weight 210 lb 9 oz Weight 210 lb 9 oz Result Diagrams: 03/26/19 09:00 03/26/19 09:00 Additional Labs: Accuchecks 03/26/19 03/26/19 03/25/19 11:14 04:47 19:19 POC Glucose 214 H 239 H 253 H 03/25/19 16:47 POC Glucose 225 H Hospitalist ROS - Medication Medications: Active Medications Generic Name Dose Route Start Last Admin Trade Name Freq PRN Reason Stop Dose Admin Hydrocodone Bitart/Acetaminophen 1 tab 03/23/19 16:08 03/26/19 13:02 [place] 5/325 PO 1 tab Q4H PRN Administration Moderate Pain (4-6) Enoxaparin Sodium 40 mg 03/24/19 09:00 03/26/19 08:39 Lovenox SC 40 mg 0900 BOGDAN Administration Famotidine 20 mg 03/23/19 21:00 03/26/19 08:40 Pepcid PO 20 mg BID BOGDAN Administration Insulin Human Lispro 0 units 03/23/19 16:08 03/26/19 05:45 Humalog SC 4 unit .MODERATE SLIDING SC PRN Administration Moderate Correctional Scale Morphine Sulfate 2 mg 03/23/19 16:18 03/26/19 09:53 Morphine SLOW IVP 2 mg Q4H PRN Administration Moderate to Severe Pain (6-10) Pregabalin 150 mg 03/23/19 21:00 03/26/19 08:40 Lyrica PO 150 mg BID BOGDAN Administration Saccharomyces Boulardii 250 mg 03/25/19 09:00 03/26/19 08:39 Florastor PO 250 mg DAILY BOGDAN Administration - Exam General Appearance: awake alert Eye: anicteric sclera ENT: normocephalic atraumatic Neck: supple Heart: RRR Respiratory: CTAB, no rales, no ronchi, normal chest expansion Gastrointestinal: soft, non-tender, non-distended, normal bowel sounds Extremities - other findings: ight foot covered with dressing. Other limbs are normal looking Neurological: cranial nerve grossly intact, no focal deficits Psychiatric: normal affect, A&O x 3 Hosp A/P (1) Osteomyelitis of foot, right, acute Code(s): M86.171 - OTHER ACUTE OSTEOMYELITIS, RIGHT ANKLE AND FOOT Status: Acute (2) MRSA infection Code(s): A49.02 - METHICILLIN RESIS STAPH INFECTION, UNSP SITE Status: Acute (3) Diabetic foot infection Code(s): E11.628 - TYPE 2 DIABETES MELLITUS WITH OTHER SKIN COMPLICATIONS; L08.9 - LOCAL INFECTION OF THE SKIN AND SUBCUTANEOUS TISSUE, UNSP Status: Acute (4) CKD (chronic kidney disease) stage 3, GFR 30-59 ml/min Code(s): N18.3 - CHRONIC KIDNEY DISEASE, STAGE 3 (MODERATE) Status: Acute (5) Hypokalemia Code(s): E87.6 - HYPOKALEMIA Status: Acute (6) Anemia, normocytic normochromic Code(s): D64.9 - ANEMIA, UNSPECIFIED Status: Chronic (7) DM (diabetes mellitus), type 2, uncontrolled Code(s): E11.65 - TYPE 2 DIABETES MELLITUS WITH HYPERGLYCEMIA Status: Chronic Qualifiers: Glycemic state: with hypoglycemia (8) Diabetic neuropathy Code(s): E11.40 - TYPE 2 DIABETES MELLITUS WITH DIABETIC NEUROPATHY, UNSP Status: Chronic Qualifiers: Diabetes mellitus type: type 2 (9) HTN (hypertension) Code(s): I10 - ESSENTIAL (PRIMARY) HYPERTENSION Status: Chronic Qualifiers: - Plan Continue current antibiotics. Consult ID for choice and duration of antibiotics. Change insulin to 70/30 insulin as pattient cannot afford lantus. Will start metformin on renal function styabilized. Wound care as per surgery
--- NOTE | 2019-03-26 17:04 | CON ---
DATE OF CONSULTATION: 03/26/2019 HISTORY OF PRESENT ILLNESS: A 48-year-old, well known to us from prior visits. Initially saw her in November of this year when she presented with a history of type 2 diabetes and pain in left upper quadrant. The patient was identified with MSSA bacteremia, probably secondary to a renal abscess, was treated for protracted time with IV cefazolin and Rocephin with improvement and resolution of inflammatory process. In February 2019, the patient presented with perforating injury to the left foot with inflammatory process in the left foot. The MRI did not show any evidence of osteomyelitis. The patient had an initial intervention by Dr. Vega on 02/09 with evidence of cellulitis, but no abscess. Cultures at that time yielded E coli, which had a broad susceptibility profile and since there is no evidence of osteomyelitis, the patient was discharged on oral ciprofloxacin. A few days later, the patient had another procedure by Dr. Vega because of persistence of inflammatory process and she had an amputation of the second and third toes and metatarsals. I do not think a repeat imaging study was done before this second procedure. Cultures from 02/12 from the swab from the toe showed no organisms seen and no growth in 5 days. She was placed on Augmentin. According to the note, she was discharged back on her Augmentin that reportedly had been prescribed for the previous discharge planning. She was admitted on the because of syncopal event and this was described to orthostatic hypotension and gastroenteritis. The C difficile test was negative. The patient had a repeat imaging study of the extremity with an MRI of the left foot, which showed evidence of osteomyelitis of the third metatarsal with some edema and enhancement of soft tissues. Cultures at this time yielded methicillin-resistant staphylococcus aureus and group B Streptococcus. The methicillin-resistant staphylococcus aureus was susceptible to clindamycin and doxycycline resistant to quinolones. Currently, she denies any headaches. No shortness of breath or chest pain, abdominal pain or diarrhea. No genitourinary symptoms. Not much pain in the left foot. PAST MEDICAL HISTORY: Type 2 diabetes, obesity, hypertension, hyperlipidemia, the complications mentioned above following a puncture to the left foot and left kidney abscess with MSSA bacteremia treated with resolution. SOCIAL HISTORY: Never smoker. Lives in [place]. . ALLERGIES: IODINE. FAMILY HISTORY: Noncontributory except for diabetes. CURRENT MEDICATIONS: Tylenol, Dulcolax, dextrose, Lovenox, Pepcid, glucagon, insulin, morphine, Zofran, Zosyn, pregabalin, Florastor, and vancomycin. PHYSICAL EXAMINATION: VITAL SIGNS: T-max of 99.7, currently 98.4, blood pressure 120/70, pulse 94, respirations are 18, O2 saturation 93% to 96%. SKIN: Exam shows the wound, left foot with absent second and third toes. At the amputation site, there is a bit of yellow slough around the edges of the wound margin, at the base, there is a little bit of yellow slough and mostly is granulation tissue. Moderate erythema in the dorsal aspect of the mid foot region associated with swelling. Peripheral IV access, no lymphadenopathy. HEENT: Ocular movements conjugate. Sclerae white. Oral cavity normal. NECK: Supple. No jugular venous distention. LUNGS: Symmetric with clear breath sounds. HEART: S1 and S2 regular rate. No murmurs. ABDOMEN: Soft. Not distended or tender. No ascites. No bladder distention. EXTREMITIES: Pulses are 1+ in dorsalis pedis. Cap refill is normal. NEUROLOGIC: Nonfocal. Cognitive function including. LABORATORY DATA: White cell count 19,000, now 13.5; hemoglobin 10, platelets are 390 with normal differential. Creatinine was 1.3 and now 1.28. The baseline was 1.07 at beginning of February 2019. Bilirubin was normal. AST and ALT within normal limits as well as alkaline phosphatase. Albumin 3.4 and globulin 3.7. Vancomycin trough is 13.9. There is a vascular ultrasound from 03/24 with no DVT noted. ASSESSMENT: Type 2 diabetes previous renal abscess with MSSA bacteremia; left foot complications following perforating injury initially without evidence of osteomyelitis, but subsequent evidence of persistence of inflammatory process, which led to amputation of second and third toes. The patient received about 2 weeks of Augmentin, but was admitted this time with syncopal events ascribed to gastroenteritis and now she has evidence of inflammatory process persisting in the left distal second and third metatarsal area at the amputation site with MRSA and group B strep retrieved. DISCUSSION: The options for management now would include IV antimicrobial therapy with vancomycin and Rocephin, that will be my favorite approach in view of the somewhat refractory nature of this process and the recurring procedure that she has had. I am afraid that she is going to continue to have further amputations. So I think that is the best choice for her to continue IV therapy for a while, at least maybe another 3 weeks or so until we can transition her to oral doxy and rifampin for continuation of therapy after that. I would be concerned if we immediately switch her to oral antimicrobials at this point in time, so I think she is going to need a PICC line and arrangement through the Oncology area for treatment. She is stating that she would have difficulty with transportation, so we will have to look with Case Management carefully her situation. Job ID: [id number]
[2019-03-26] MEDS: HumuLIN 70/30 (300 UNITS/3 ML VIAL) SC SCH (17:32)
--- NOTE | 2019-03-26 19:36 | PRG ---
DATE OF SERVICE: 03/26/2019 Ms. Olson is doing well today. Her vital signs are stable. She has refused the VAC. Her cultures have grown out MRSA sensitive to clindamycin, rifampin, Augmentin, and Bactrim. She has strep B. I have discontinued her permanent antibiotics and ordered two weeks of Augmentin and Bactrim, I have written prescription for 2 weeks. She has an appointment to see me in 2 to 3 weeks. Normal saline wet-to-dry dressings can be performed. She can follow up in my office for appointment. At this point, I will see her in the office and see her as needed in the hospital. Job ID: [id number]
[2019-03-26] MEDS: Sulfameth/Trimethoprim DS 800-160mg TAB PO SCH (20:35)
[2019-03-26] MEDS: Amoxicillin/Potassium Clav 875 MG TAB PO SCH (20:35)
[2019-03-26] MEDS ORDERED: Linezolid 600 MG TAB PO SCH (21:00)
[2019-03-27 06:07] LABS: #Eosinphils 0.6 thou/uL (0.0-0.7); #Lymphocytes 3.9 thou/uL (1.20-3.40); #Monocytes 0.8 thou/uL (0.11-0.59); #Neutrophils 8.2 thou/uL (1.40-6.50); %Basophils 0.2 % (0.0-1.0); %Eosinophils 4.8 % (0.0-10.0); %Lymphocytes 28.9 % (21.0-51.0); %Monocytes 5.7 % (0.0-10.0); %Neutrophils 60.5 % (42.0-75.0); Hemoglobin 9.2 g/dL (12.0-16.0); Mean Corpuscular HGB CONC 33.3 g/dL (32.0-36.0); Mean Corpuscular Volume 81.2 fL (78.0-98.0); Mean Platelet Volume 8.2 fL (7.4-10.4); Platelet Count 360 thou/uL (130-400); RBC Distribution Width 13.4 % (11.5-14.5); White Blood Cell (WBC) Count 13.5 thou/uL (4.8-10.8)
[2019-03-27 06:25] LABS: Anion Gap 10 mmol/L (10-20); BUN (Urea Nitrogen) 23 mg/dL (7.0-18.7); Calc. Creatinine Clearance 76 mL/min (70-130); Calcium 9.1 mg/dL (7.8-10.44); Carbon Dioxide 30 mmol/L (22-29); Chloride 99 mmol/L (98-107); Estimated GFR-MDRD 40; Glucose 85 mg/dL (70-105); Potassium 3.8 mmol/L (3.5-5.1); Sodium 135 mmol/L (136-145)
[2019-03-27] MEDS ORDERED: HumaLOG 300 UNITS/3 ML VIAL SC SCH (07:30)
[2019-03-27] MEDS: Saccharomyces boulardii 250 MG CAP PO SCH (08:21)
[2019-03-27] MEDS: Sulfameth/Trimethoprim DS 800-160mg TAB PO SCH (08:21)
[2019-03-27] MEDS: Amoxicillin/Potassium Clav 875 MG TAB PO SCH (08:21)
[2019-03-27] MEDS: HumuLIN 70/30 (300 UNITS/3 ML VIAL) SC SCH ×3 (08:23→17:20)
[2019-03-27] MEDS: Enoxaparin Sodium 40 MG/0.4 ML SYRINGE SC SCH (08:23)
[2019-03-27] MEDS: Pregabalin 75 MG CAP PO SCH ×2 (08:23→19:30)
[2019-03-27] MEDS: Famotidine 20 MG TAB PO SCH ×2 (08:25→19:27)
--- NOTE | 2019-03-27 10:20 | PDOC.HOSPP ---
- Subjective Encounter Date: 03/27/19 Encounter Time: 10:18 Subjective: 48 y/o female in uncontrolled DM associated with diabetic foot ulcer/ osteomyelitis s/p partial amputation of 2and 3rd toes admitted with worsening wound,swelling and pain. MRI showed features of osteo and wound culture grew MRSA and strep. Right foot swelling and pain with antibiotics and wound care. Wants to go home. - Objective Vital Signs & Weight: Vital Signs (12 hours) Temp Pulse Resp BP BP Pulse Ox 03/27/19 08:20 96 03/27/19 07:45 98.6 F 77 16 90/56 L 96 03/27/19 04:00 98.6 F 79 18 93/59 L 93 L 03/27/19 00:36 98.3 F 95 18 120/77 100 Weight Admit Weight 210 lb 9 oz Weight 210 lb 9 oz Result Diagrams: 03/27/19 05:59 03/27/19 05:58 Additional Labs: Accuchecks 03/27/19 03/26/19 03/26/19 05:04 21:57 19:25 POC Glucose 92 68 L 170 H 03/26/19 03/26/19 16:38 11:14 POC Glucose 252 H 214 H Hospitalist ROS - Medication Medications: Active Medications Generic Name Dose Route Start Last Admin Trade Name Freq PRN Reason Stop Dose Admin Hydrocodone Bitart/Acetaminophen 1 tab 03/23/19 16:08 03/26/19 17:54 [place] 5/325 PO 1 tab Q4H PRN Administration Moderate Pain (4-6) Amoxicillin/Clavulanate Potassium 875 mg 03/26/19 21:00 03/27/19 08:21 Augmentin PO 875 mg Q12HR BOGDAN Administration Enoxaparin Sodium 40 mg 03/24/19 09:00 03/27/19 08:23 Lovenox SC 40 mg 0900 BOGDAN Administration Famotidine 20 mg 03/23/19 21:00 03/27/19 08:25 Pepcid PO 20 mg BID BOGDAN Administration Insulin Human Isoph/Insulin Regular 50 units 03/26/19 16:30 03/27/19 08:23 Humulin 70/30 SC Not Given BID-AC BOGDAN Insulin Human Lispro 0 units 03/23/19 16:08 03/26/19 17:35 Humalog SC 6 unit .MODERATE SLIDING SC PRN Administration Moderate Correctional Scale Morphine Sulfate 2 mg 03/23/19 16:18 03/26/19 09:53 Morphine SLOW IVP 2 mg Q4H PRN Administration Moderate to Severe Pain (6-10) Pregabalin 150 mg 03/23/19 21:00 03/27/19 08:23 Lyrica PO 150 mg BID BOGDAN Administration Saccharomyces Boulardii 250 mg 03/25/19 09:00 03/27/19 08:21 Florastor PO 250 mg DAILY BOGDAN Administration Trimethoprim/Sulfamethoxazole 1 tab 03/26/19 21:00 03/27/19 08:21 Bactrim Ds PO 1 tab BID BOGDAN Administration - Exam General Appearance: awake alert Eye: anicteric sclera ENT: normocephalic atraumatic Neck: supple, symmetric Heart: RRR Respiratory: no wheezes, no rales, no ronchi, normal chest expansion Gastrointestinal: soft, non-tender, non-distended, normal bowel sounds Extremities - other findings: Right foot covered with dressing. Neurological: cranial nerve grossly intact Psychiatric: normal affect, A&O x 3 Hosp A/P (1) Osteomyelitis of foot, right, acute Code(s): M86.171 - OTHER ACUTE OSTEOMYELITIS, RIGHT ANKLE AND FOOT Status: Acute (2) MRSA infection Code(s): A49.02 - METHICILLIN RESIS STAPH INFECTION, UNSP SITE Status: Acute (3) Diabetic foot infection Code(s): E11.628 - TYPE 2 DIABETES MELLITUS WITH OTHER SKIN COMPLICATIONS; L08.9 - LOCAL INFECTION OF THE SKIN AND SUBCUTANEOUS TISSUE, UNSP Status: Acute (4) CKD (chronic kidney disease) stage 3, GFR 30-59 ml/min Code(s): N18.3 - CHRONIC KIDNEY DISEASE, STAGE 3 (MODERATE) Status: Acute (5) Hypokalemia Code(s): E87.6 - HYPOKALEMIA Status: Acute (6) Anemia, normocytic normochromic Code(s): D64.9 - ANEMIA, UNSPECIFIED Status: Chronic (7) DM (diabetes mellitus), type 2, uncontrolled Code(s): E11.65 - TYPE 2 DIABETES MELLITUS WITH HYPERGLYCEMIA Status: Chronic Qualifiers: Glycemic state: with hypoglycemia (8) Diabetic neuropathy Code(s): E11.40 - TYPE 2 DIABETES MELLITUS WITH DIABETIC NEUROPATHY, UNSP Status: Chronic Qualifiers: Diabetes mellitus type: type 2 (9) HTN (hypertension) Code(s): I10 - ESSENTIAL (PRIMARY) HYPERTENSION Status: Chronic Qualifiers: - Plan Appreciate ID input. Will place PICC line and will discharge patient once PICC line is placed, IV antibiotics arranged and functional wound vac is in place. Change insulin to 70/30 insulin Will start metformin Wound care to continue
--- NOTE | 2019-03-27 16:51 | SPC ---
Ultrasound and Fluoroscopic guided right upper extremity single lumen PICC placement: 09/30/2018 HISTORY: Need for central vascular access. FINDINGS: Informed consent obtained prior to the procedure. The right upper extremity soft tissues were prepped and draped in normal sterile fashion. Skin overlying theright brachial vein anesthetized with 1% buffered lidocaine. With direct sonographi c guidance, vascular access is obtained via the right brachialvein and an 0.018in wire was advanced to the cavoatrial junction. Intravascular length is calculated at 38 cm and of the PICC is cut accord ingly. Needle is removed and replaced with a peel-away sheath. The PICC was advanced over the wire. Wire and peel-away sheath were removed. The tip of the catheter overlies the cavoatrial junction. The port flushes well and the catheter is ready for use. Exposure data: 0 minutes of fluoroscopic time 30 mGy per centimeter squared IMPRESSION: Successful ultrasound guided placement of a right upper extremity PICC.
[2019-03-27] MEDS: metFORMIN 500 MG TAB PO SCH (16:54)
[2019-03-27] MEDS: HYDROcodone/Acetaminophen 5/325 mg Tablet PO PRN (16:54)
[2019-03-27] MEDS: cefTRIAXone\\ROCEPHIN 2 GM in Sodium Chloride 0.9% 100 ML IVPB SCH (19:27)
[2019-03-27] MEDS: Vancomycin HCl 1.5 GM in Sodium Chloride 0.9% 250 ML 300 ML IVPB SCH (19:27)
[2019-03-28 04:32] LABS: #Eosinphils 0.4 thou/uL (0.0-0.7); #Lymphocytes 3.8 thou/uL (1.20-3.40); #Monocytes 0.7 thou/uL (0.11-0.59); #Neutrophils 7.5 thou/uL (1.40-6.50); %Basophils 0.4 % (0.0-1.0); %Eosinophils 3.5 % (0.0-10.0); %Lymphocytes 30.7 % (21.0-51.0); %Monocytes 5.9 % (0.0-10.0); %Neutrophils 59.6 % (42.0-75.0); Hemoglobin 9.9 g/dL (12.0-16.0); Mean Corpuscular HGB CONC 32.8 g/dL (32.0-36.0); Mean Corpuscular Hemoglobin 26.7 pg (27.0-31.0); Mean Corpuscular Volume 81.5 fL (78.0-98.0); Mean Platelet Volume 8.2 fL (7.4-10.4); Platelet Count 382 thou/uL (130-400); RBC Distribution Width 13.5 % (11.5-14.5); Red Blood Cell (RBC) Count 3.71 mill/uL (4.20-5.40); White Blood Cell (WBC) Count 12.5 thou/uL (4.8-10.8)
[2019-03-28 05:00] LABS: Albumin 2.9 g/dL (3.5-5.0); Anion Gap 12 mmol/L (10-20); BUN (Urea Nitrogen) 23 mg/dL (7.0-18.7); BUN/Creatinine Ratio 17.42; Calc. Creatinine Clearance 80 mL/min (70-130); Calcium 9.2 mg/dL (7.8-10.44); Carbon Dioxide 27 mmol/L (22-29); Chloride 103 mmol/L (98-107); Estimated GFR-MDRD 43; Glucose 116 mg/dL (70-105); Phosphorus 4.3 mg/dL (2.3-4.7); Potassium 3.8 mmol/L (3.5-5.1); Sodium 138 mmol/L (136-145)
[2019-03-28] MEDS ORDERED: HumuLIN 70/30 (300 UNITS/3 ML VIAL) SC SCH (07:30)
[2019-03-28] MEDS: Pregabalin 75 MG CAP PO SCH ×2 (09:41→20:01)
[2019-03-28] MEDS: metFORMIN 500 MG TAB PO SCH ×2 (09:42→18:34)
[2019-03-28] MEDS: Saccharomyces boulardii 250 MG CAP PO SCH (09:42)
[2019-03-28] MEDS: Enoxaparin Sodium 40 MG/0.4 ML SYRINGE SC SCH (09:43)
[2019-03-28] MEDS: Famotidine 20 MG TAB PO SCH ×2 (09:43→20:00)
--- NOTE | 2019-03-28 16:00 | PDOC.HOSPP ---
- Subjective Encounter Date: 03/28/19 Encounter Time: 15:58 Subjective: 48 y/o female in uncontrolled DM associated with diabetic foot ulcer/ osteomyelitis s/p partial amputation of 2and 3rd toes admitted with worsening wound,swelling and pain. MRI showed features of osteo and wound culture grew MRSA and strep. Right foot swelling and pain with antibiotics and wound care. Had hypoglycemia earlier todays's afternoon. She didnt eat lunch after 70/30 insulin in the am. - Objective Vital Signs & Weight: Vital Signs (12 hours) Temp Pulse Resp BP Pulse Ox 03/28/19 12:00 98.1 F 80 18 119/70 96 03/28/19 08:00 99.3 F 75 20 101/67 91 L Weight Admit Weight 210 lb 9 oz Weight 210 lb 9 oz I&O: 03/27/19 03/28/19 03/29/19 06:59 06:59 06:59 Intake Total 1650 240 Balance 1650 240 Result Diagrams: 03/28/19 04:15 03/28/19 04:15 Additional Labs: Accuchecks 03/28/19 03/28/19 03/28/19 14:35 14:02 11:39 POC Glucose 87 Less than 35 L* 103 03/28/19 03/27/19 03/27/19 05:22 19:41 17:07 POC Glucose 124 H 164 H 152 H Hospitalist ROS - Medication Medications: Active Medications Generic Name Dose Route Start Last Admin Trade Name Freq PRN Reason Stop Dose Admin Hydrocodone Bitart/Acetaminophen 1 tab 03/23/19 16:08 03/27/19 16:54 [place] 5/325 PO 1 tab Q4H PRN Administration Moderate Pain (4-6) Enoxaparin Sodium 40 mg 03/24/19 09:00 03/28/19 09:43 Lovenox SC 40 mg 0900 BOGDAN Administration Famotidine 20 mg 03/23/19 21:00 03/28/19 09:43 Pepcid PO 20 mg BID BOGDAN Administration Ceftriaxone Sodium 2 gm/ 100 mls @ 200 mls/hr 03/27/19 19:00 03/27/19 19:27 Sodium Chloride IVPB 100 mls Q24HR BOGDAN Administration Vancomycin HCl 1.5 gm/ Sodium 300 mls @ 150 mls/hr 03/27/19 20:00 03/27/19 19 :27 Chloride IVPB 300 mls Q24HR@2000 BOGDAN Administration Insulin Human Isoph/Insulin Regular 40 units 03/27/19 16:30 03/27/19 17:20 Humulin 70/30 SC 40 unit 1630 BOGDAN Administration Insulin Human Isoph/Insulin Regular 60 units 03/28/19 07:30 03/28/19 09:40 Humulin 70/30 SC 60 unit DAILY-AC BOGDAN Administration Insulin Human Lispro 0 units 03/23/19 16:08 03/26/19 17:35 Humalog SC 6 unit .MODERATE SLIDING SC PRN Administration Moderate Correctional Scale Metformin HCl 500 mg 03/27/19 17:00 03/28/19 09:42 Glucophage PO 500 mg BID-WM BOGDAN Administration Morphine Sulfate 2 mg 03/23/19 16:18 03/26/19 09:53 Morphine SLOW IVP 2 mg Q4H PRN Administration Moderate to Severe Pain (6-10) Pregabalin 150 mg 03/23/19 21:00 03/28/19 09:41 Lyrica PO 150 mg BID BOGDAN Administration Saccharomyces Boulardii 250 mg 03/25/19 09:00 03/28/19 09:42 Florastor PO 250 mg DAILY BOGDAN Administration Sodium Chloride 10 ml 03/27/19 21:00 03/28/19 09:44 Flush - Normal Saline IVF 10 ml Q12HR BOGDAN Administration - Exam General Appearance: awake alert Eye: anicteric sclera ENT: normocephalic atraumatic Neck: supple, symmetric Heart: RRR Respiratory: no wheezes, no rales, no ronchi Gastrointestinal: soft, non-tender, non-distended, normal bowel sounds Extremities: no cyanosis Extremities - other findings: Right foot dressing and wound vac noted Neurological: cranial nerve grossly intact, no focal deficits Psychiatric: A&O x 3 Hosp A/P (1) Osteomyelitis of foot, right, acute Code(s): M86.171 - OTHER ACUTE OSTEOMYELITIS, RIGHT ANKLE AND FOOT Status: Acute (2) MRSA infection Code(s): A49.02 - METHICILLIN RESIS STAPH INFECTION, UNSP SITE Status: Acute (3) Diabetic foot infection Code(s): E11.628 - TYPE 2 DIABETES MELLITUS WITH OTHER SKIN COMPLICATIONS; L08.9 - LOCAL INFECTION OF THE SKIN AND SUBCUTANEOUS TISSUE, UNSP Status: Acute (4) CKD (chronic kidney disease) stage 3, GFR 30-59 ml/min Code(s): N18.3 - CHRONIC KIDNEY DISEASE, STAGE 3 (MODERATE) Status: Acute (5) Hypokalemia Code(s): E87.6 - HYPOKALEMIA Status: Acute (6) Anemia, normocytic normochromic Code(s): D64.9 - ANEMIA, UNSPECIFIED Status: Chronic (7) DM (diabetes mellitus), type 2, uncontrolled Code(s): E11.65 - TYPE 2 DIABETES MELLITUS WITH HYPERGLYCEMIA Status: Chronic Qualifiers: Glycemic state: with hypoglycemia (8) Diabetic neuropathy Code(s): E11.40 - TYPE 2 DIABETES MELLITUS WITH DIABETIC NEUROPATHY, UNSP Status: Chronic Qualifiers: Diabetes mellitus type: type 2 (9) HTN (hypertension) Code(s): I10 - ESSENTIAL (PRIMARY) HYPERTENSION Status: Chronic Qualifiers: (10) Hypoglycemia associated with diabetes Code(s): E11.649 - TYPE 2 DIABETES MELLITUS WITH HYPOGLYCEMIA WITHOUT COMA Status: Acute - Plan Decrease am 70/30 insulin to 50 units. Need to eat regularly reiterated. Continue metformin Wound care to continue For discharge once outpatient IV antibiotics is arranged
[2019-03-28] MEDS: HumuLIN 70/30 (300 UNITS/3 ML VIAL) SC SCH (18:10)
[2019-03-28] MEDS: cefTRIAXone\\ROCEPHIN 2 GM in Sodium Chloride 0.9% 100 ML IVPB SCH (18:34)
[2019-03-28] MEDS: Vancomycin HCl 1.5 GM in Sodium Chloride 0.9% 250 ML 300 ML IVPB SCH (19:59)
[2019-03-28] MEDS: HYDROcodone/Acetaminophen 5/325 mg Tablet PO PRN (21:32)
[2019-03-28] MEDS ORDERED: Loperamide HCl 2 MG CAP PO SCH (21:45)
[2019-03-28] MEDS: Loperamide HCl 2 MG CAP PO PRN (23:33)
[2019-03-29 06:13] LABS: Hemoglobin A1c 9.2 % (4.0-6.0)
[2019-03-29 06:27] LABS: Anion Gap 12 mmol/L (10-20); BUN (Urea Nitrogen) 24 mg/dL (7.0-18.7); Calc. Creatinine Clearance 82 mL/min (70-130); Calcium 9.2 mg/dL (7.8-10.44); Carbon Dioxide 26 mmol/L (22-29); Chloride 103 mmol/L (98-107); Estimated GFR-MDRD 44; Glucose 131 mg/dL (70-105); Potassium 3.5 mmol/L (3.5-5.1); Sodium 137 mmol/L (136-145)
[2019-03-29] MEDS: Pregabalin 75 MG CAP PO SCH ×2 (08:05→20:05)
[2019-03-29] MEDS: Saccharomyces boulardii 250 MG CAP PO SCH (08:05)
[2019-03-29] MEDS: metFORMIN 500 MG TAB PO SCH ×2 (08:06→17:45)
[2019-03-29] MEDS: Enoxaparin Sodium 40 MG/0.4 ML SYRINGE SC SCH (08:07)
[2019-03-29] MEDS: Famotidine 20 MG TAB PO SCH ×2 (08:07→20:04)
[2019-03-29] MEDS: HumuLIN 70/30 (300 UNITS/3 ML VIAL) SC SCH ×2 (08:08→17:44)
--- NOTE | 2019-03-29 15:56 | PRG ---
DATE OF SERVICE: 03/29/2019 SUBJECTIVE: Has had a PICC line placed. The left foot is getting better. She is having some loose stools, but this is a chronic problem; in other words, does not appear to be a consequence of this admission or antimicrobial therapy. OBJECTIVE: VITAL SIGNS: Normal. LUNGS: Clear. HEART: S1, S2 regular rate. ABDOMEN: Soft. Not distended. EXTREMITIES: Left foot with the negative-pressure dressing. The last photo shows improvement in inflammatory change at the base of the amputation site. LABORATORY DATA: White cell count is down from 19 to 12.5, hemoglobin 9.9, platelets 382. Creatinine is stable at 1.3. Culture with MRSA and group B strep. ASSESSMENT AND DISCUSSION: Type 2 diabetes, renal abscess, methicillin-susceptible Staphylococcus aureus bacteremia in the past, resolved. Left foot complications following perforating injury, which culminated in amputation of second and third toes with now residual osteomyelitis at the third ray remnant. The patient to continue Rocephin and vancomycin with PICC line in the outpatient setting. End date of therapy has been stated in the Case Management orders for May 09, 2019. In the outpatient setting, she will be on daptomycin and Rocephin. Followup labs. Job ID: [id number]
--- NOTE | 2019-03-29 16:15 | PDOC.HOSPP ---
- Subjective Encounter Date: 03/29/19 Encounter Time: 10:14 Subjective: 48 y/o female in uncontrolled DM associated with diabetic foot ulcer/ osteomyelitis s/p partial amputation of 2and 3rd toes admitted with worsening wound,swelling and pain. MRI showed features of osteo and wound culture grew MRSA and strep. Right foot swelling and pain with antibiotics and wound care. Had hypoglycemia 03/28/2019 after missing lunch. Feeling better - Objective Vital Signs & Weight: Vital Signs (12 hours) Temp Pulse Resp BP Pulse Ox 03/29/19 08:00 98.4 F 03/29/19 07:33 98.4 F 83 20 122/73 98 Weight Admit Weight 210 lb 9 oz Weight 210 lb 9 oz I&O: 03/28/19 03/29/19 03/30/19 06:59 06:59 06:59 Intake Total 1650 2870 240 Balance 1650 2870 240 Result Diagrams: 03/28/19 04:15 03/29/19 05:58 Additional Labs: Accuchecks 03/29/19 03/29/19 03/28/19 10:55 04:15 19:19 POC Glucose 123 H 116 H 194 H 03/28/19 16:34 POC Glucose 176 H Hospitalist ROS - Medication Medications: Active Medications Generic Name Dose Route Start Last Admin Trade Name Freq PRN Reason Stop Dose Admin Hydrocodone Bitart/Acetaminophen 1 tab 03/23/19 16:08 03/28/19 21:32 [place] 5/325 PO 1 tab Q4H PRN Administration Moderate Pain (4-6) Enoxaparin Sodium 40 mg 03/24/19 09:00 03/29/19 08:07 Lovenox SC 40 mg 0900 BOGDAN Administration Famotidine 20 mg 03/23/19 21:00 03/29/19 08:07 Pepcid PO 20 mg BID BOGDAN Administration Ceftriaxone Sodium 2 gm/ 100 mls @ 200 mls/hr 03/27/19 19:00 03/28/19 18:34 Sodium Chloride IVPB 100 mls Q24HR BOGDAN Administration Vancomycin HCl 1.5 gm/ Sodium 300 mls @ 150 mls/hr 03/27/19 20:00 03/28/19 19 :59 Chloride IVPB 300 mls Q24HR@2000 BOGDAN Administration Insulin Human Isoph/Insulin Regular 40 units 03/27/19 16:30 03/28/19 18:10 Humulin 70/30 SC 40 unit 1630 BOGDAN Administration Insulin Human Isoph/Insulin Regular 50 units 03/28/19 16:02 03/29/19 08:08 Humulin 70/30 SC 50 unit DAILY-AC BOGDAN Administration Insulin Human Lispro 0 units 03/23/19 16:08 03/26/19 17:35 Humalog SC 6 unit .MODERATE SLIDING SC PRN Administration Moderate Correctional Scale Loperamide HCl 2 mg 03/28/19 21:31 03/28/19 23:33 Imodium PO 2 mg PRN PRN Administration Diarrhea/Loose Stools Metformin HCl 500 mg 03/27/19 17:00 03/29/19 08:06 Glucophage PO 500 mg BID-WM BOGDAN Administration Morphine Sulfate 2 mg 03/23/19 16:18 03/26/19 09:53 Morphine SLOW IVP 2 mg Q4H PRN Administration Moderate to Severe Pain (6-10) Pregabalin 150 mg 03/23/19 21:00 03/29/19 08:05 Lyrica PO 150 mg BID BOGDAN Administration Saccharomyces Boulardii 250 mg 03/25/19 09:00 03/29/19 08:05 Florastor PO 250 mg DAILY OBGDAN Administration Sodium Chloride 10 ml 03/27/19 21:00 03/29/19 08:08 Flush - Normal Saline IVF 10 ml Q12HR BOGDAN Administration - Exam General Appearance: awake alert Eye: anicteric sclera ENT: normocephalic atraumatic Neck: no JVD Heart: RRR Respiratory: CTAB, no ronchi Gastrointestinal: soft, non-tender, non-distended, normal bowel sounds Gastrointestinal - other findings: obese Extremities - other findings: right foot dressing and wound vac noted Neurological: cranial nerve grossly intact Hosp A/P (1) Osteomyelitis of foot, right, acute Code(s): M86.171 - OTHER ACUTE OSTEOMYELITIS, RIGHT ANKLE AND FOOT Status: Acute (2) MRSA infection Code(s): A49.02 - METHICILLIN RESIS STAPH INFECTION, UNSP SITE Status: Acute (3) Diabetic foot infection Code(s): E11.628 - TYPE 2 DIABETES MELLITUS WITH OTHER SKIN COMPLICATIONS; L08.9 - LOCAL INFECTION OF THE SKIN AND SUBCUTANEOUS TISSUE, UNSP Status: Acute (4) CKD (chronic kidney disease) stage 3, GFR 30-59 ml/min Code(s): N18.3 - CHRONIC KIDNEY DISEASE, STAGE 3 (MODERATE) Status: Acute (5) Hypokalemia Code(s): E87.6 - HYPOKALEMIA Status: Acute (6) Anemia, normocytic normochromic Code(s): D64.9 - ANEMIA, UNSPECIFIED Status: Chronic (7) DM (diabetes mellitus), type 2, uncontrolled Code(s): E11.65 - TYPE 2 DIABETES MELLITUS WITH HYPERGLYCEMIA Status: Chronic Qualifiers: Glycemic state: with hypoglycemia (8) Diabetic neuropathy Code(s): E11.40 - TYPE 2 DIABETES MELLITUS WITH DIABETIC NEUROPATHY, UNSP Status: Chronic Qualifiers: Diabetes mellitus type: type 2 (9) HTN (hypertension) Code(s): I10 - ESSENTIAL (PRIMARY) HYPERTENSION Status: Chronic Qualifiers: (10) Hypoglycemia associated with diabetes Code(s): E11.649 - TYPE 2 DIABETES MELLITUS WITH HYPOGLYCEMIA WITHOUT COMA Status: Acute - Plan Continue 70/30 insulin to 50 am and 40 pm as well as metformin 500 bid. Wound care to continue For discharge once outpatient IV antibiotics is arranged
[2019-03-29] MEDS: cefTRIAXone\\ROCEPHIN 2 GM in Sodium Chloride 0.9% 100 ML IVPB SCH (18:11)
[2019-03-29 19:36] LABS: Vancomycin, Trough 16.3 ug/mL
[2019-03-29] MEDS: Vancomycin HCl 1.5 GM in Sodium Chloride 0.9% 250 ML 300 ML IVPB SCH (20:04)
[2019-03-29] MEDS: Loperamide HCl 2 MG CAP PO PRN (20:09)
[2019-03-30] MEDS: Loperamide HCl 2 MG CAP PO PRN (02:30)
[2019-03-30] MEDS ORDERED: cefTRIAXone\\ROCEPHIN 2 GM in Sodium Chloride 0.9% 100 ML IVPB SCH (10:00)
[2019-03-30] MEDS ORDERED: DAPTOmycin 500 MG in Sodium Chloride 0.9% 100 ML IVPB SCH (10:00)
[2019-03-30 11:06] VITALS: BP 120/72; TEMP 98.1
[2019-03-30] MEDS: Famotidine 20 MG TAB PO SCH (11:16)
[2019-03-30] MEDS: metFORMIN 500 MG TAB PO SCH (11:16)
[2019-03-30] MEDS: Saccharomyces boulardii 250 MG CAP PO SCH (11:16)
[2019-03-30] MEDS: Enoxaparin Sodium 40 MG/0.4 ML SYRINGE SC SCH (11:16)
[2019-03-30] MEDS: Pregabalin 75 MG CAP PO SCH (11:17)
[2019-03-30] MEDS: HumuLIN 70/30 (300 UNITS/3 ML VIAL) SC SCH (13:05)
--- NOTE | 2019-03-30 23:09 | DIS ---
DATE OF ADMISSION: 03/23/2019 DATE OF DISCHARGE: 03/30/2019 REASON FOR HOSPITALIZATION: Lower extremity wounds. SIGNIFICANT FINDINGS: The patient was confirmed to have osteomyelitis of the third metatarsal without abscess formation. PROCEDURES PERFORMED AND TREATMENTS RENDERED: The patient confirmed to have osteomyelitis, was seen and evaluated by Surgery, please see full consultation and progress notes for details. Surgery recommended amputation, however, the patient declined any invasive surgical procedures. The patient was seen and evaluated by Infectious Disease specialist, please see full consultation and progress notes for details. Infectious Disease specialist recommended extended course of IV antibiotics-please see full consultation and progress notes for details. Efforts were made to coordinate antibiotic therapy in the outpatient setting and this was approved on a aide basis through the hospital as of 03/30/2019. CONDITION ON DISCHARGE: Stable. SPECIFIC INSTRUCTIONS FOR THE PATIENT/FAMILY: 1. The patient is recommended to complete a full course of IV antibiotics with all appropriate laboratories and wound care as determined by Infectious Disease specialist. 2. The patient is recommended to follow up with Infectious Disease specialist in the next 1 to 2 weeks. 3. The patient is recommended to follow up with Wound Care in the next 1 to 2 days. 4. The patient is recommended to follow up with General Surgery in the next 1 to 2 weeks. 5. The patient is recommended to follow up with primary care physician in the next 5 to 7 days. 6. The patient is recommended to return to acute care hospital immediately if signs or symptoms return, worsen, or any other new symptoms occur. DISCHARGE MEDICATIONS: Please see full discharge medication list for details with the following new medications. 1. Daptomycin. 2. Ceftriaxone-both to be intravenous injection to be administered by home health care nurse in the home setting. 3. All other home medications continued without changes. HOSPITAL COURSE: Ms. Olson is a 48-year-old female, who presented to [facility] on 03/23/2019 and she was identified to have osteomyelitis of the third digit of the left foot. The patient was seen and evaluated by General Surgery, Infectious Disease specialist, and the patient determined that she would like antibiotic therapy. The patient was set up with IV antibiotic therapy as determined by Infectious Disease specialist-please see full consultation and progress notes from all specialists for details. As the patient currently does not have insurance, the hospital went through efforts to help pay for the patient's medications to be administered in the home setting. Tentative approval for these medications to be administered in the home setting by home health care specialists in addition to wound care and all appropriate laboratory data was set up by Infectious Disease specialist. The patient is recommended to follow up with Infectious Disease specialist in the next 1 to 2 weeks. The patient is recommended to follow up with primary care physician in the next 5 to 7 days. The patient is recommended to follow up with General Surgery in the next 1 to 2 weeks. The patient is recommended to follow up with Wound Care in the next 1 to 2 days. The patient is recommended to return to acute care hospital immediately if signs or symptoms return, worsen, or any other new symptoms occur. Greater than 39 minutes spent coordinating care and discharge process for this patient. Job ID: [id number]
== END 2019-03-30 15:59 | disposition home or self-care (01) | DRG 638 ==
LOC: ERS 09:01 → ERHOLD 15:40 → T4-B 18:54
PROVIDERS: ADMIT Internal Medicine Nephrology; ATTEND Internal Medicine Nephrology
PROC: 02HV33Z Insertion of Infusion Device into Superior Vena Cava, Percutaneous Approach (ICD-10-PCS; principal; 2019-03-27)
PROC: B5181ZA Fluoroscopy of Superior Vena Cava using Low Osmolar Contrast, Guidance (ICD-10-PCS; 2019-03-27)
DX: E11.69 Type 2 diabetes mellitus with other specified complication (principal); M86.172 Other acute osteomyelitis, left ankle and foot; E11.42 Type 2 diabetes mellitus with diabetic polyneuropathy; E11.21 Type 2 diabetes mellitus with diabetic nephropathy; E11.22 Type 2 diabetes mellitus with diabetic chronic kidney disease; N18.3 Chronic kidney disease, stage 3 (moderate); E11.649 Type 2 diabetes mellitus with hypoglycemia without coma; E11.65 Type 2 diabetes mellitus with hyperglycemia; I12.9 Hypertensive chronic kidney disease with stage 1 through stage 4 chronic kidney disease, or unspecified chronic kidney disease; G43.909 Migraine, unspecified, not intractable, without status migrainosus; F32.9 Major depressive disorder, single episode, unspecified; E66.9 Obesity, unspecified; E78.5 Hyperlipidemia, unspecified; B95.62 Methicillin resistant Staphylococcus aureus infection as the cause of diseases classified elsewhere; E87.6 Hypokalemia; Z89.422 Acquired absence of other left toe(s); Z98.890 Other specified postprocedural states; Z87.891 Personal history of nicotine dependence; Z91.041 Radiographic dye allergy status
CPT/HCPCS: 36415; 36416; 36569; 80048; 80053; 80069; 80202; 83036; 83605; 83630; 85025; 85652; 86140; 87040; 87045; 87046; 87070; 87077; 87186; 87205; 87324; 87328; 87329; 87427; 87449; 93923; 96365; 96366; 96367; 96372; A9577; C1751; J0696; J0878; J1644; J1650; J1815; J1885; J2270; J2543; J3370; J3490; J7050

== ENCOUNTER 2019-04-03 13:42 | Outpatient (CLI) | payer SELFPAY ==
[2019-04-03] MEDS ORDERED: Sodium Chloride 0.9% 15 ML NEB ONE (15:00)
== END 2019-04-03 13:43 | disposition home or self-care (01) ==
LOC: WCC 13:42
PROVIDERS: ATTEND Family Medicine
DX: T81.89XD Other complications of procedures, not elsewhere classified, subsequent encounter (principal); Z89.422 Acquired absence of other left toe(s)
CPT/HCPCS: A4218

== ENCOUNTER 2019-04-06 15:44 | Outpatient (CLI) | payer SELFPAY | END 2019-04-06 15:45 | disposition home or self-care (01) | LOC: WCC 15:44 | PROVIDERS: ATTEND Family Medicine | DX: T81.89XD Other complications of procedures, not elsewhere classified, subsequent encounter (principal); Z89.432 Acquired absence of left foot | CPT/HCPCS: 97605 ==

== ENCOUNTER 2019-04-09 10:53 | Outpatient (CLI) | payer SELFPAY ==
--- NOTE | 2019-04-09 12:50 | HP ---
HISTORY OF PRESENT ILLNESS: Ms. Jeanne Olson is a very pleasant 48-year-old, who presents to the Wound Center for evaluation of a wound of the left foot subsequent to amputation of the second and third toes and metatarsals on 02/12/[address] Gigi Vega. Negative pressure therapy was initiated subsequent to surgery and upon discharge from [facility] the patient was referred to the Wound Center for assistance with dressing changes of the wound VAC. The patient had previously undergone exploration of the left plantar wound with incision and drainage and culture on 02/09/2019, also by Dr. Gigi Vega. The patient is receiving IV antibiotics as per Infectious Diseases for osteomyelitis of the third metatarsal of the left foot. PAST MEDICAL HISTORY: 1. Diabetes mellitus. 2. Vertigo. 3. History of kidney abscess. 4. Migraine headaches. PAST SURGICAL HISTORY: 1. x3. 2. Incision and drainage of left upper back abscess. 3. Exploration of the left plantar wound with incision and drainage in culture on 02/09/2019. 4. Amputation of left second and third toes and metatarsals on 02/12/2019. MEDICATIONS: 1. Lyrica. 2. NovoLog 70/30. ALLERGIES: NO KNOWN DIAGNOSED ALLERGIES. THE PATIENT REPORTS LACTOSE INTOLERANCE. SOCIAL HISTORY: Social history is significant for the intermittent use of tobacco since age 18. The patient states that over this period of time she has smoked up to one pack of cigarettes per day. The patient admits to only the rare consumption of alcohol. FAMILY HISTORY: Family history significant for diabetes mellitus. The patient states that her mother and father were both diagnosed with diabetes mellitus. Family history is also significant for coronary artery disease. The patient states that her father was diagnosed with coronary artery disease. PHYSICAL EXAMINATION: VITAL SIGNS: Temperature 97.7, pulse 80, respirations 16, and blood pressure 138/63. Accu-Chek 183. GENERAL: A 48-year-old female sitting on table in examination room, in no acute distress. HEENT: Normocephalic, atraumatic. NECK: No nuchal rigidity. CHEST: Clear to auscultation. CV: Regular rate and rhythm. ABDOMEN: Soft. EXTREMITIES: An ulceration of the left foot is present subsequent to amputation of the left second and third toes and metatarsals. The dimensions of the wound are approximately 1.9 x 2.2 cm. Granulation tissue is present within the wound margins. Nonviable tissue present within the wound margins was debrided with an excisional full-thickness debridement with the use of a curette. No purulent drainage is associated with the wound. No erythema of the skin surrounding the wound is present. No maceration of the skin of the periwound is noted. A pedal pulse is palpable on the left. NEUROLOGIC: Grossly nonfocal. ASSESSMENT AND PLAN: 1. Ulceration of left foot as described above. Negative pressure therapy will be continued with dressing changes of the wound VAC here in the Wound Center. As stated above, the patient is receiving IV antibiotics as per Dr. David Phillips of Infectious Diseases for osteomyelitis of the left third metatarsal. The patient has an appointment with Dr. Vega in 1 week. I will see Ms. Olson again in 2 weeks. The patient understands and is in agreement with the preceding treatment plan. 2. Diabetes mellitus. The patient's Accu-Chek in clinic today is 183. The patient has been told that for optimal wound healing her blood glucoses should remain below 150. 3. Vertigo. 4. History of kidney abscess. 5. Migraine headaches. Job ID: [id number]
[2019-04-09] MEDS ORDERED: Sodium Chloride 0.9% 15 ML NEB ONE (15:00)
== END 2019-04-09 10:54 | disposition home or self-care (01) ==
LOC: WCC 10:53
PROVIDERS: ATTEND Family Medicine
DX: E11.621 Type 2 diabetes mellitus with foot ulcer (principal); L97.529 Non-pressure chronic ulcer of other part of left foot with unspecified severity; R42 Dizziness and giddiness; G43.909 Migraine, unspecified, not intractable, without status migrainosus
CPT/HCPCS: 11042; 99203; A4218; G0463

== ENCOUNTER 2019-04-14 14:52 | Outpatient (CLI) | payer SELFPAY ==
[2019-04-14] MEDS ORDERED: Sodium Chloride 0.9% 15 ML NEB ONE (15:49)
== END 2019-04-14 14:53 | disposition home or self-care (01) ==
LOC: WCC 14:52
PROVIDERS: ATTEND Family Medicine
DX: T81.89XD Other complications of procedures, not elsewhere classified, subsequent encounter (principal); Z89.422 Acquired absence of other left toe(s)
CPT/HCPCS: A4218

== ENCOUNTER 2019-04-15 14:29 | Outpatient (CLI) | payer SELFPAY ==
[2019-04-15] MEDS ORDERED: Sodium Chloride 0.9% 15 ML NEB ONE (15:46)
== END 2019-04-15 14:30 | disposition home or self-care (01) ==
LOC: WCC 14:29
PROVIDERS: ATTEND Family Medicine
DX: T81.89XD Other complications of procedures, not elsewhere classified, subsequent encounter (principal); Z89.422 Acquired absence of other left toe(s)
CPT/HCPCS: A4218

== ENCOUNTER 2019-06-04 20:23 | Inpatient (IN) | payer SELFPAY ==
[2019-06-04] MEDS ORDERED: HYDROcodone/Acetaminophen 5/325 mg Tablet ONE (21:57)
[2019-06-04 21:59] LABS: Mean Corpuscular HGB CONC 33.2 g/dL (32.0-36.0); Mean Corpuscular Volume 81.4 fL (78.0-98.0); Mean Platelet Volume 9.1 fL (7.4-10.4); Platelet Count 258 thou/uL (130-400); RBC Distribution Width 14.5 % (11.5-14.5); Red Blood Cell (RBC) Count 4.44 mill/uL (4.20-5.40); White Blood Cell (WBC) Count 24.1 thou/uL (4.8-10.8)
--- NOTE | 2019-06-04 22:12 | RAD ---
Radiograph right foot 3 views: DATE: 06/04/2019 HISTORY: Puncture wound to foot FINDINGS: There is a small focus of subcutaneous gas at the soft tissues of the plantar aspect of foot inferior to the level of the midfoot-hindfoot junction. No fracture, dislocation, or any other osseous abnormality. No radiopaque foreign body. IMPRESSION: Puncture wound at plantar aspect of foot.
--- NOTE | 2019-06-04 22:23 | RAD ---
Radiograph right leg tibia-fibula 2 views: DATE: 06/04/2019 Time: 9:40 PM HISTORY: Puncture wound in 49-year-old female. FINDINGS: No periostitis, osteolytic lesion, osteoblastic lesion, or permeative lesion, involving tibia or fibu la. No fracture. No definite subcutaneous emphysema or soft tissue calcination. No radiopaque foreign body. IMPRESSION: Negative.
[2019-06-04 22:26] LABS: ALT (SGPT) 15 U/L (8-55); AST (SGOT) 10 U/L (5-34); Albumin 3.6 g/dL (3.5-5.0); Alkaline Phosphatase 119 U/L (40-110); Anion Gap 13 mmol/L (10-20); BUN (Urea Nitrogen) 29 mg/dL (7.0-18.7); Bilirubin, Total 0.5 mg/dL (0.2-1.2); Calc. Creatinine Clearance 0 mL/min (70-130); Calcium 9.2 mg/dL (7.8-10.44); Carbon Dioxide 26 mmol/L (22-29); Chloride 96 mmol/L (98-107); Estimated GFR-MDRD 40; Globulin 3.9 g/dL (2.4-3.5); Glucose 347 mg/dL (70-105); Potassium 4.2 mmol/L (3.5-5.1); Protein, Total 7.5 g/dL (6.0-8.3); Sodium 131 mmol/L (136-145)
[2019-06-04 22:30] LABS: Eosinophils 1 % (0-10); Lymphocytes 15 % (21-51); MDiff Complete? YES; Monocytes 5 % (0-10); Neutrophil 79 % (42-75); Platelet Morphology Comment Appears Adequate; RBC Morphology Normal
[2019-06-04] MEDS ORDERED: Clindamycin/D5W 900 mg/50 ml Premix Bag ONE (22:59)
[2019-06-04 23:50] LABS: Bacteria/HPF None Seen HPF (None Seen); Bilirubin Negative (Negative); Blood, Urine Trace (Negative); Clarity Clear (Clear); Glucose, Urine (Dipstick) Greater than 1000 mg/dL (Negative); Leukocyte Negative Leu/uL (Negative); Nitrite Negative (Negative); Protein, Urine (Dipstick) 20 mg/dL (Neg-Trace); RBC/HPF 0-3 HPF (0-3); Urobilinogen Normal mg/dL (Less than 2); WBC/HPF 0-3 HPF (0-3)
[2019-06-05] MEDS ORDERED: Ondansetron ODT 4 MG TAB SL PRN (00:47)
[2019-06-05] MEDS ORDERED: Acetaminophen 325 MG TAB PO PRN (00:47)
[2019-06-05] MEDS ORDERED: Sodium Chloride 0.9% 1,000 ML IV SCH (00:47)
[2019-06-05] MEDS ORDERED: Ondansetron PF 4 MG/2 ML Vial IVP PRN (00:47)
[2019-06-05 01:05] VITALS: BMI 40.8
[2019-06-05] MEDS ORDERED: Dextrose 5% in Water 1,000 ML IV PRN ×2 (01:50→02:45)
[2019-06-05] MEDS ORDERED: Dextrose 50% Abboject 50 ML SYRINGE IVP PRN (01:50)
[2019-06-05] MEDS ORDERED: Pregabalin 75 MG CAP PO SCH ×2 (02:00→09:00)
[2019-06-05] MEDS: HYDROcodone/Acetaminophen 5/325 mg Tablet PO PRN ×3 (02:02→23:38)
[2019-06-05] MEDS: Insulin Regular 300 UNITS/3 ML VIAL SC PRN ×2 (02:03→05:46)
[2019-06-05] MEDS ORDERED: Dextrose 50% Abboject 50 ML SYRINGE SLOW IVP PRN (02:45)
[2019-06-05] MEDS ORDERED: Meclizine HCl 12.5 MG TAB PO PRN (02:45)
[2019-06-05] MEDS ORDERED: hydrALAZINE 20 MG/ML VIAL SLOW IVP PRN (02:45)
[2019-06-05] MEDS ORDERED: Acetaminophen 500 MG TAB PO PRN (02:45)
--- NOTE | 2019-06-05 03:45 | HP ---
PRIMARY CARE PROVIDER: Sada Aranda MD CHIEF COMPLAINT: Right foot pain. HISTORY OF PRESENT ILLNESS: This is a 49-year-old female, who presents to [facility]'s Medical Department complaining of 3- to 4-day history of right foot pain. The patient states she apparently stepped on a tack and was unaware of this as she has peripheral neuropathy in the context of long-standing diabetes mellitus. The patient began to feel swelling and throbbing of the right foot with pain on the top portion of her arch. The patient noticed a tack in the bottom of her foot on the date of presentation, 06/03/2019, presenting to the ER for evaluation. The patient states she has had difficulty with osteomyelitis in the past of the left foot requiring resection and amputation of several toes. The patient denies taking any recent antibiotics, however, was evaluated by the Wound Care team as recently as 04/09/2019, for open wound to the left foot requiring negative-pressure therapy. In the emergency room, the patient underwent general evaluation including plain radiographs of the right foot showing a small focus of subcutaneous gas of the soft tissues of the plantar aspect of the foot inferior to the level of the mid and hindfoot junction. No fracture dislocation noted. No foreign or retained body noted. Two views of the right tibia-fibula dated 06/04/2019, showed negative study. The patient received intravenous normal saline in addition to Levaquin 750 mg IV piggyback with clindamycin 900 mg x1 dose. The patient also received [place] and was referred to the Hospitalist Service for admission. PAST MEDICAL HISTORY: 1. Osteomyelitis of the left foot requiring multiple toe amputations. 2. Diabetes mellitus type 2 with peripheral neuropathy. 3. History of vertigo. 4. Migraine headaches. 5. Diabetic nephropathy. PAST SURGICAL HISTORY: 1. Status post section x3. 2. Status post cyst removal from the left shoulder. 3. Status post multiple left toe amputations with local debridement and negative-pressure therapy. CURRENT MEDICATIONS: 1. Humulin 70/30, 40 units subcutaneously q.a.m. and 30 units subcutaneously nightly. 2. Lyrica 150 mg p.o. b.i.d. 3. Meclizine 12.5 mg p.o. t.i.d. ALLERGIES: TO LACTOSE AND ROCEPHIN. FAMILY HISTORY: Positive for hypertension in the patient's father with diabetes in both sets of parents. SOCIAL HISTORY: The patient resides in [place], [place]. Former tobacco use, quitting in 2019. No alcohol or illicit drug use. REVIEW OF SYSTEMS: CONSTITUTIONAL: Negative for weight loss or gain, ability to conduct usual activities. SKIN: Negative for rash, itching. EYES: Negative for double vision, pain. ENT/MOUTH: Negative for nose bleeding, neck stiffness, pain, tenderness. CARDIOVASCULAR: Negative for palpitations, dyspnea on exertion, orthopnea. RESPIRATORY: Negative for shortness of breath, wheezing, cough, hemoptysis, fever or night sweats. GASTROINTESTINAL: Negative for poor appetite, abdominal pain, heartburn, nausea, vomiting, constipation, or diarrhea. GENITOURINARY: Negative for urgency, frequency, dysuria, nocturia. MUSCULOSKELETAL: Negative for pain, swelling. NEUROLOGIC/PSYCHIATRIC: Negative for anxiety, depression. ALLERGY/IMMUNOLOGIC: Negative for skin rash, bleeding tendency. Otherwise negative except as stated per HPI. PHYSICAL EXAMINATION: VITAL SIGNS: On admission, blood pressure 142/68, pulse 89, respiratory rate 18, temperature 98 degrees Fahrenheit, and O2 saturation 96% on room air. GENERAL APPEARANCE: This is a 49-year-old female, alert and oriented x3, pleasant, responsive, in no acute distress. HEENT: Pupils are equal, round, reactive to light and accommodation. Extraocular muscles are intact. No scleral icterus. No conjunctival injection. Nares are patent. OP is clear. Teeth in fair repair. NECK: Supple. No cervical adenopathy. No thyromegaly. No carotid bruits. No JVD appreciated. Cervical spine with full active and passive range of motion. No meningeal signs noted. CHEST: Lungs are clear to auscultation bilaterally. CARDIOVASCULAR: S1, S2 without noted murmur, rub, or gallop. ABDOMEN: Rounded, soft, nontender, and nondistended. Bowel sounds are positive in all 4 quadrants. There is no hepatosplenomegaly. No abdominal bruits. No rebound or guarding appreciated. EXTREMITIES: Warm and dry with fair turgor. Right foot with erythema on the medial arch extending superior to the mid foot. Positive edema and tenderness to palpation. Small puncture wound noted on the plantar aspect of the medial arch. No expressible purulence. Postsurgical changes noted of the left foot consistent with prior surgical history. PERTINENT LABORATORY AND X-RAY FINDINGS: Sodium 131, potassium 4.2, chloride 96, CO2 of 26, BUN 29, creatinine 1.41, estimated GFR 40, glucose 347, calcium 9.2, alkaline phosphatase 119. CRP 18.7. CBC showed a white blood cell count of 24.1, hemoglobin 12, hematocrit 36, platelet count 258 with 79% neutrophils. Urinalysis dated 06/04/2019, showed greater than 1000 glucose. Three views of the right foot dated 06/04/2019, showed puncture wound at plantar aspect of the foot. Right tibia and fibula x-ray dated 06/04/2019, negative. ASSESSMENT AND PLAN: 1. Right foot cellulitis/abscess. The patient will be admitted to the medical floor. We will continue antibiotic coverage with vancomycin 1 g IV q.12 hours with additional Zosyn 3.375 g IV q.6 hours. Wound Care consult for local care. Consult Podiatry Service for evaluation and consideration of incision and drainage. 2. Diabetic neuropathy. Severe neuropathy. Continue Lyrica 150 mg p.o. b.i.d. General foot care. 3. Chronic kidney disease stage 3. Avoid nephrotoxic agents and limit contrast exposure. Repeat creatinine in the a.m. 4. Hyponatremia. Suspect secondary to hyperglycemia. Continue to monitor serial sodium trend. 5. Prophylaxis. SCDs while in bed. Pepcid 20 mg p.o. b.i.d. Confirm up-to-date tetanus immunization. CODE STATUS: Full. Surrogate medical decision maker is the patient's son. Job ID: [id number]
[2019-06-05 05:40] LABS: Eosinophils 3 % (0-10); Hemoglobin 9.7 g/dL (12.0-16.0); Hypochromia SLIGHT = 6-15 cells (100X) (0-5/hpf); Lymphocytes 16 % (21-51); MDiff Complete? YES; Mean Corpuscular HGB CONC 32.5 g/dL (32.0-36.0); Mean Corpuscular Hemoglobin 26.1 pg (27.0-31.0); Mean Corpuscular Volume 80.4 fL (78.0-98.0); Mean Platelet Volume 9.2 fL (7.4-10.4); Monocytes 8 % (0-10); Neutrophil 73 % (42-75); Platelet Count 223 thou/uL (130-400); Platelet Morphology Comment Appears Adequate; RBC Distribution Width 14.7 % (11.5-14.5); Red Blood Cell (RBC) Count 3.69 mill/uL (4.20-5.40); White Blood Cell (WBC) Count 19.8 thou/uL (4.8-10.8)
[2019-06-05] MEDS: Piperacillin/Tazobactam 3.375 GM in Sodium Chloride 0.9% 100 ML IVPB SCH ×4 (05:45→23:34)
[2019-06-05 05:46] LABS: Anion Gap 8 mmol/L (10-20); BUN (Urea Nitrogen) 25 mg/dL (7.0-18.7); Calc. Creatinine Clearance 94 mL/min (70-130); Calcium 8.4 mg/dL (7.8-10.44); Carbon Dioxide 29 mmol/L (22-29); Chloride 100 mmol/L (98-107); Estimated GFR-MDRD 51; Glucose 314 mg/dL (70-105); Potassium 4.1 mmol/L (3.5-5.1); Sodium 133 mmol/L (136-145)
[2019-06-05] MEDS ORDERED: Clindamycin/D5W 600 MG in Premix Bag 1 BAG IVPB SCH (08:00)
[2019-06-05] MEDS: Ondansetron ODT 4 MG TAB PO PRN ×2 (08:42→14:31)
[2019-06-05] MEDS: Famotidine 20 MG TAB PO SCH ×2 (08:43→20:26)
[2019-06-05] MEDS: Saccharomyces boulardii 250 MG CAP PO SCH (08:43)
[2019-06-05] MEDS: Pregabalin 75 MG CAP PO SCH ×2 (08:43→20:26)
[2019-06-05] MEDS: HumuLIN 70/30 (300 UNITS/3 ML VIAL) SC SCH ×2 (09:42→20:53)
[2019-06-05] MEDS: Vancomycin HCl 1 GM in Premix Bag 1 BAG IVPB SCH ×2 (09:43→20:27)
--- NOTE | 2019-06-05 10:52 | HP ---
REASON FOR CONSULTATION: Infection to the right foot. HISTORY OF PRESENT ILLNESS: A 49-year-old female, who has been admitted to the hospital with an infection in the right foot and states that on Saturday night, she noticed that she had stepped on a tack, the tack from the bottom of her foot. The pain had increased over the evening to the dorsal aspect of the foot and all the way up her calf, went to the emergency room on evening. At that time, she had an increased white count. X-rays were taken, which were negative for retained foreign body, but there was some soft tissue gas within the plantar aspect of the foot, which correlated with the area of the puncture wound. She had redness on the medial and lateral aspect of her foot. She was admitted for IV antibiotics and further evaluation. PAST MEDICAL HISTORY: 1. Osteomyelitis of the left foot requiring multiple toe amputation. 2. Diabetes type 2 with peripheral neuropathy. 3. History of vertigo. PAST SURGICAL HISTORY: 1. Three sections. 2. Cyst removal, left shoulder. 3. Multiple left toe amputation earlier this year. CURRENT HOME MEDICATIONS: 1. Humulin 70/30. 2. Lyrica. 3. Meclizine. ALLERGIES: LACTOSE AND ROCEPHIN. FAMILY HISTORY: Positive for hypertension in the patient's father with diabetes in both parents. SOCIAL HISTORY: She lives in [place]. Quit using tobacco this year. No alcohol or illicit drug use. REVIEW OF SYSTEMS: CONSTITUTIONAL: Denies nausea, vomiting, fevers, or chills. INTEGUMENTARY: Relates redness and swelling to the right foot in a small puncture wound. PHYSICAL EXAMINATION: EXTREMITIES: Focal lower extremity exam; cardiovascular; dorsalis pedis, posterior tibial pulses palpable to the right foot, immediate capillary refill time to the distal aspect of all toes. Mild nonpitting edema to the right foot. NEUROLOGICAL: Light touch and protective threshold are diminished to the right foot, although currently she is experiencing tenderness with palpation of the plantar and dorsal midfoot. DERMATOLOGICAL: There is a small pinpoint puncture hole in the plantar central portion of the foot expressing the tissues around does not elicit any purulent drainage. There is erythema on the medial arch and lateral mid foot, which extends up to the dorsal aspect of the foot. I had the nurse to monitor this and evaluate for progression or regression. ASSESSMENT: 1. Puncture wound to the right foot with associated cellulitis and possibility for deeper abscess. 2. Diabetes with peripheral neuropathy. PLAN: 1. First we want to get further imaging studies including MRI with and without contrast to evaluate the plantar soft tissues of foot and determine if there is any deeper abscesses that I cannot appreciate on the physical exam. 2. May require incision and drainage, washout of these tissues if there is any deeper abscess or drainable fluid collection. Otherwise, this may be able to be controlled with IV antibiotics and discharged with oral antibiotics. We will continue to monitor her white count and low-grade fevers for improvement if there is no drainable fluid collection. 3. Hopefully, we will get MRI later today and I will review the findings later tonight if surgery is required. We will plan to take her tomorrow morning if the operating room schedule permits. Thank you for the consultation. Job ID: [id number]
[2019-06-05] MEDS ORDERED: Magnevist 469MG/ML 20 ML VIAL ONE (12:18)
--- NOTE | 2019-06-05 12:50 | MRI ---
MR of the right foot with and without IV contrast INDICATION: History of puncture wound to the right foot concern for abscess COMPARISON: Right foot radiograph dated 05/27/2019 TECHNIQUE: Multiplanar multisequence MR images were obtained of the left foot with and without contra st utilizing 20 cc of MultiHance. FINDINGS: There is diffuse subcutaneous edema involving the ankle and foot. There is diffuse intrinsic foot mus culature edema. There is moderate muscular atrophy of the intrinsic foot musculature. There is susceptibility artifact within the subcutaneous fat of the plantar aspect of the foot just subjacent to the medial plantar fascial band suspicious for gas. No drainable fluid collection is evident. No overt cellulitis is noted. There is nonspecific fluid distention of the FHL, FDL and posterior tibial is tendon sheaths. There is nonspecific distention the peroneal tendon sheaths. No definite marrow signal abnormality to suggest presence of osteomyelitis. Lisfranc ligament is intact. IMPRESSION: 1.5 x 1.8 cm subcutaneous gas collection within the plantar aspect of the fluid foot subj acent to the medial plantar fascia band at the level of the anterior calcaneus. This likely corresponds to the puncture wound. No overt drainable fluid collection is evident. There is no overt evidence of osteomyelitis. Suspected lymphedema of the ankle and foot. No overt enhancement of the subcutaneous tissues is seen to suggest presence of cellulitis. Would recommend correlation with the clinical exam. Moderate intrinsic foot musculature atrophy. Fluid distention of the medial and lateral flexor tendon sheaths may reflect sequela of lymphedema; h owever, component of tenosynovitis is not excluded.
--- NOTE | 2019-06-05 14:10 | PDOC.HOSPP ---
- Subjective Encounter Date: 06/05/19 Encounter Time: 09:45 Subjective: no fever, sob or palp right foot pain is better is ambulating to restroom and back to her bed - Objective Vital Signs & Weight: Vital Signs (12 hours) Temp Pulse Resp BP Pulse Ox 06/05/19 12:25 75 14 117/78 06/05/19 11:05 98.7 F 71 16 118/77 95 06/05/19 07:49 98.7 F 71 16 118/77 95 06/05/19 04:31 99.5 F 75 18 101/64 96 Weight Admit Weight 216 lb 7.903 oz Weight 216 lb 7.903 oz I&O: 06/04/19 06/05/19 06/06/19 06:59 06:59 06:59 Intake Total 350 Balance 350 Result Diagrams: 06/05/19 04:56 06/05/19 04:56 Additional Labs: Accuchecks 06/05/19 06/05/19 06/05/19 13:12 04:36 00:54 POC Glucose 168 H 322 H 359 H Hospitalist ROS - Medication Medications: Active Medications Generic Name Dose Route Start Last Admin Trade Name Freq PRN Reason Stop Dose Admin Hydrocodone Bitart/Acetaminophen 1 tab 06/05/19 01:49 06/05/19 09:54 [place] 5/325 PO 1 tab Q6H PRN Administration Pain Famotidine 20 mg 06/05/19 09:00 06/05/19 08:43 Pepcid PO 20 mg BID BOGDAN Administration Piperacillin Sod/Tazobactam 100 mls @ 200 mls/hr 06/05/19 06:00 06/05/19 12: 27 Sod 3.375 gm/ Sodium Chloride IVPB 100 mls Q6HR BOGDAN Administration Vancomycin HCl 1 gm/ Device 200 mls @ 200 mls/hr 06/05/19 09:00 06/05/19 09: 43 IVPB 200 mls Q12HR BOGDAN Administration Insulin Human Isoph/Insulin Regular 40 units 06/05/19 09:00 06/05/19 09:42 Humulin 70/30 SC 40 unit QAM BOGDAN Administration Insulin Human Regular 0 units 06/05/19 01:50 06/05/19 05:46 Humulin R SC 8 unit .MODERATE SLIDING SC PRN Administration MODERATE SLIDING SCALE Protocol Insulin Human Regular 0 units 06/05/19 01:50 06/05/19 02:03 Humulin R SC 5 unit .BEDTIME SLIDING SC PRN Administration BEDTIME SLIDING SCALE Protocol Ondansetron HCl 4 mg 06/05/19 02:45 06/05/19 08:42 Zofran Odt PO 4 mg Q6H PRN Administration Nausea/Vomiting Pregabalin 150 mg 06/05/19 09:00 06/05/19 08:43 Lyrica PO 150 mg BID BOGDAN Administration Saccharomyces Boulardii 250 mg 06/05/19 09:00 06/05/19 08:43 Florastor PO 250 mg DAILY BOGDAN Administration Sodium Chloride 10 ml 06/05/19 09:00 06/05/19 09:54 Flush - Normal Saline IVF 10 ml Q12HR BOGDAN Administration - Exam General Appearance: awake alert Eye: PERRL, anicteric sclera ENT: no oropharyngeal lesions, moist mucosa Neck: supple, no JVD Heart: RRR, no murmur Respiratory: no wheezes, no rales Gastrointestinal: soft, non-tender, non-distended, normal bowel sounds Extremities: no cyanosis, 1+ LE edema Extremities - other findings: erythema over medial foot, puncture hole plantar aspect Neurological: cranial nerve grossly intact, no focal deficits Psychiatric: normal affect, A&O x 3 Hosp A/P (1) Cellulitis of right foot Code(s): L03.115 - CELLULITIS OF RIGHT LOWER LIMB Status: Acute (2) CKD (chronic kidney disease) stage 3, GFR 30-59 ml/min Code(s): N18.3 - CHRONIC KIDNEY DISEASE, STAGE 3 (MODERATE) Status: Chronic (3) Anemia, normocytic normochromic Code(s): D64.9 - ANEMIA, UNSPECIFIED Status: Chronic (4) DM2 (diabetes mellitus, type 2) Status: Chronic Qualifiers: Diabetes mellitus exterminator termite insulin use: with exterminator termite use Diabetes mellitus complication status: with kidney complications Diabetes mellitus complication detail: with chronic kidney disease Chronic kidney disease stage : stage 3 (moderate) Qualified Code(s): E11.22 - Type 2 diabetes mellitus with diabetic chronic kidney disease; N18.3 - Chronic kidney disease, stage 3 ( moderate); Z79.4 - intermodal dispatcher (current) use of insulin (5) Diabetic neuropathy Code(s): E11.40 - TYPE 2 DIABETES MELLITUS WITH DIABETIC NEUROPATHY, UNSP Status: Chronic Qualifiers: Diabetes mellitus type: type 2 (6) HTN (hypertension) Code(s): I10 - ESSENTIAL (PRIMARY) HYPERTENSION Status: Chronic Qualifiers: (7) Morbid obesity with BMI of 40.0-44.9, adult Code(s): E66.01 - MORBID (SEVERE) OBESITY DUE TO EXCESS CALORIES; Z68.41 - BODY MASS INDEX (BMI) 40.0-44.9, ADULT Status: Chronic - Plan is on vanc and zosyn, norco prn continue 70/30 insulin, lyrica to mobilize as tolerated no signs of abscess but air is present on MRI further mgmt per podiatry adv hemostable
--- NOTE | 2019-06-05 21:18 | PRG ---
DATE OF SERVICE: 06/05/2019 SUBJECTIVE: A 49-year-old female patient seen at bedside, she is in no acute distress. I came back to discuss their MRI results and plan for further intervention. OBJECTIVE: Physical exam recently spiked fever at 101.5, it was taken at 19:30 just before I saw the patient. She continues to have some pain in the right foot. Erythema has not progressed, is unchanged since this morning. MRI showed no drainable fluid collection, but there is a large collection of gas within the soft tissues. No signs of osteomyelitis. ASSESSMENT: 1. Puncture wound to the right foot with associated cellulitis as of yet not responding to her IV antibiotics. 2. Diabetes, peripheral neuropathy. PLAN: Due to the patient's continued fever and pain to the right foot, fact that the soft tissue gas appears to be sealed off within the soft tissues. This puncture wound has healed over, I am recommending that we perform an incision and drainage and take deep cultures at that time to get a better indication of which antibiotics she should be placed on and wash out the area. The patient is agreeable to this. We are planning to take her tomorrow morning. She will be made n.p.o. after midnight and be on-call to the operating room first thing in the morning. Job ID: [id number] [facility]
[2019-06-05] MEDS: Ondansetron PF 4 MG/2 ML Vial IVP PRN (23:34)
[2019-06-06] MEDS: Piperacillin/Tazobactam 3.375 GM in Sodium Chloride 0.9% 100 ML IVPB SCH ×3 (05:47→17:45)
[2019-06-06] MEDS: HYDROcodone/Acetaminophen 5/325 mg Tablet PO PRN ×3 (05:51→20:34)
[2019-06-06] MEDS ORDERED: Bupivacaine PF 0.5% 30 ML VIAL ONE (07:11)
[2019-06-06] MEDS ORDERED: Neomycin-Polymyxin 1 ML AMP ONE (07:11)
[2019-06-06] MEDS ORDERED: HYDROmorphone 0.5 MG/0.5 ML SYRINGE ONE (07:56)
[2019-06-06] MEDS ORDERED: Promethazine HCl 25 MG/ML VIAL IM PRN (08:49)
[2019-06-06] MEDS ORDERED: Ondansetron HCl/PF 4 MG/2 ML Vial IVP PRN (08:49)
[2019-06-06] MEDS ORDERED: PACU-Morphine 4MG/ML VIAL SLOW IVP PRN (08:49)
[2019-06-06] MEDS ORDERED: Promethazine HCl 25 MG/ML VIAL SLOW IVP PRN (08:49)
[2019-06-06] MEDS ORDERED: HYDROmorphone 2 MG/ML VIAL SLOW IVP PRN (08:49)
[2019-06-06] MEDS ORDERED: Fentanyl 100 MCG/2 ML VIAL ONE (09:02)
[2019-06-06] MEDS: Pregabalin 75 MG CAP PO SCH ×2 (09:41→21:54)
[2019-06-06] MEDS: Famotidine 20 MG TAB PO SCH ×2 (09:42→20:27)
[2019-06-06] MEDS: Saccharomyces boulardii 250 MG CAP PO SCH (09:42)
[2019-06-06] MEDS ORDERED: Ondansetron PF 4 MG/2 ML Vial IVP SCH (09:45)
[2019-06-06] MEDS: Morphine 2 MG/ML SYRINGE SLOW IVP PRN ×2 (09:51→16:00)
[2019-06-06] MEDS: Ondansetron PF 4 MG/2 ML Vial IVP PRN (09:51)
--- NOTE | 2019-06-06 09:55 | OP ---
DATE OF PROCEDURE: 06/06/2019 PREOPERATIVE DIAGNOSIS: Abscess, right foot. POSTOPERATIVE DIAGNOSIS: Abscess, right foot. PROCEDURE PERFORMED: Incision and drainage of abscess, right foot. HEMOSTASIS: None. ANESTHESIA: Local with monitored anesthetic care. PATHOLOGY: Culture and sensitivity, Gram stain, aerobe and anaerobe on the right foot abscess. ESTIMATED BLOOD LOSS: None. MATERIALS: Quarter-inch packing gauze and bandaging supplies. INJECTABLES: 10 mL of 0.5% Marcaine plain preoperatively. COMPLICATIONS: None. DESCRIPTION OF PROCEDURE: The patient was brought to the operative suite, placed supine on the operative table. Time-out was performed, identifying correct patient, procedure, and operative site. Foot was prepped and draped in an aseptic manner. A 2 cm incision was made over the puncture wound site on the plantar aspect of the right heel just distal to the heel fat pad. The wound tract was excised. There was some slight necrotic tissue within the wound tract, which was all excised and removed. Blunt dissection through the subcutaneous tissue showed a large pocket of air, no purulence, no necrotic tissue, or liquefactive tissue within this space. Cultures were taken deep within the space of the wound tract. The wound was then irrigated with 3 L of normal saline with 3 units of in the irrigant by pulse lavage. Wound was packed open with quarter-inch packing gauze. This will be changed 3 times a week. Bandage including 4x4s, 4-inch Kerlix, and 4-inch Arnulfo wrap was then applied. It was noted that there was very minimal bleeding throughout the procedure. The patient tolerated the procedure and anesthesia well. She was transferred out of the operative suite with vital signs stable and neurovascular status intact. She will be kept for a short period of monitoring and then transferred back to her room. Job ID: [id number]
[2019-06-06] MEDS: HumuLIN 70/30 (300 UNITS/3 ML VIAL) SC SCH ×2 (10:04→20:26)
[2019-06-06] MEDS: Vancomycin HCl 1 GM in Premix Bag 1 BAG IVPB SCH ×2 (10:09→22:45)
[2019-06-06] MEDS ORDERED: Lidocaine 1% PF 5 ML VIAL ONE (10:44)
[2019-06-06] MEDS ORDERED: Ondansetron PF 4 MG/2 ML Vial ONE (10:44)
[2019-06-06] MEDS ORDERED: Dexamethasone 20 MG/5 ML VIAL ONE (10:44)
[2019-06-06] MEDS ORDERED: PROPOFOL 200 MG/20 ML VIAL ONE (10:44)
[2019-06-06] MEDS ORDERED: ePHEDrine/0.9% NaCl/PF SYRINGE 50 mg/10 ml ONE (10:44)
[2019-06-06] MEDS ORDERED: Atenolol 25 MG TAB PO SCH (12:15)
[2019-06-06] MEDS: Insulin Regular 300 UNITS/3 ML VIAL SC PRN ×3 (12:19→21:56)
--- NOTE | 2019-06-06 14:28 | PDOC.HOSPP ---
- Subjective Encounter Date: 06/06/19 Encounter Time: 11:00 Subjective: Pt seen for followup re: cellulitis. Denies chest pain or shortness of breath. - Objective Vital Signs & Weight: Vital Signs (12 hours) Temp Pulse Resp BP Pulse Ox 06/06/19 10:57 81 113/67 06/06/19 10:27 97.5 F L 80 20 114/74 99 06/06/19 09:57 97.9 F 80 118/78 98 06/06/19 09:40 95 06/06/19 09:33 97.9 F 86 18 124/77 95 06/06/19 09:25 97.9 F 60 18 124/77 95 06/06/19 07:29 98.8 F 84 20 107/73 97 06/06/19 04:00 98.4 F 68 18 110/73 96 Weight Admit Weight 216 lb 7.903 oz Weight 216 lb 7.903 oz I&O: 06/05/19 06/06/19 06/07/19 06:59 06:59 06:59 Intake Total 2500 200 Balance 2500 200 Result Diagrams: 06/05/19 04:56 06/05/19 04:56 Additional Labs: Accuchecks 06/06/19 06/06/19 06/06/19 10:58 09:59 04:36 POC Glucose 285 H 243 H 158 H 06/05/19 06/05/19 20:40 17:05 POC Glucose 197 H 152 H Labs and MARs reviewed by me. Hospitalist ROS - Review of Systems Cardiovascular: denies: chest pain, palpitations, orthopnea, paroxysmal noc. dyspnea, edema, light headedness Gastrointestinal: denies: nausea, vomiting, abdominal pain, diarrhea, constipation, melena, hematochezia - Medication Medications: Active Medications Generic Name Dose Route Start Last Admin Trade Name Freq PRN Reason Stop Dose Admin Acetaminophen 1,000 mg 06/05/19 02:45 06/05/19 19:27 Tylenol PO 1,000 mg Q6H PRN Administration Mild Pain (1-3) Hydrocodone Bitart/Acetaminophen 1 tab 06/05/19 01:49 06/06/19 11:19 [place] 5/325 PO 1 tab Q6H PRN Administration Pain Famotidine 20 mg 06/05/19 09:00 06/06/19 09:42 Pepcid PO 20 mg BID BOGDAN Administration Piperacillin Sod/Tazobactam 100 mls @ 200 mls/hr 06/05/19 06:00 06/06/19 11: 20 Sod 3.375 gm/ Sodium Chloride IVPB 100 mls Q6HR BOGDAN Administration Vancomycin HCl 1 gm/ Device 200 mls @ 200 mls/hr 06/05/19 09:00 06/06/19 10: 09 IVPB Not Given Q12HR BOGDAN Insulin Human Isoph/Insulin Regular 30 units 06/05/19 21:00 06/05/19 20:53 Humulin 70/30 SC 30 unit QPM BOGDAN Administration Insulin Human Isoph/Insulin Regular 40 units 06/05/19 09:00 06/06/19 10:04 Humulin 70/30 SC 40 unit QAM BOGDAN Administration Insulin Human Regular 0 units 06/05/19 01:50 06/06/19 12:19 Humulin R SC 6 unit .MODERATE SLIDING SC PRN Administration MODERATE SLIDING SCALE Protocol Insulin Human Regular 0 units 06/05/19 01:50 06/05/19 02:03 Humulin R SC 5 unit .BEDTIME SLIDING SC PRN Administration BEDTIME SLIDING SCALE Protocol Morphine Sulfate 2 mg 06/06/19 09:39 06/06/19 09:51 Morphine SLOW IVP 2 mg Q4H PRN Administration Pain Ondansetron HCl 4 mg 06/05/19 02:45 06/05/19 14:31 Zofran Odt PO 4 mg Q6H PRN Administration Nausea/Vomiting Ondansetron HCl 4 mg 06/05/19 02:45 06/06/19 09:51 Zofran IVP 4 mg Q6H PRN Administration Nausea/Vomiting Pregabalin 150 mg 06/05/19 09:00 06/06/19 09:41 Lyrica PO 150 mg BID BOGDAN Administration Saccharomyces Boulardii 250 mg 06/05/19 09:00 06/06/19 09:42 Florastor PO 250 mg DAILY BOGDAN Administration Sodium Chloride 10 ml 06/05/19 09:00 06/06/19 09:52 Flush - Normal Saline IVF 10 ml Q12HR BOGDAN Administration - Exam General - other findings: Morbid obesity Eye: anicteric sclera ENT: moist mucosa Neck: supple, no JVD Heart: RRR, no rubs Respiratory: CTAB Gastrointestinal: soft, non-tender Extremities: no clubbing Extremities - other findings: Missing L 2nd and 3rd toes Skin - other findings: wound as documented Musculoskeletal: no muscle wasting Psychiatric: normal affect, normal behavior Hosp A/P (1) Diabetic foot infection Code(s): E11.628 - TYPE 2 DIABETES MELLITUS WITH OTHER SKIN COMPLICATIONS; L08.9 - LOCAL INFECTION OF THE SKIN AND SUBCUTANEOUS TISSUE, UNSP Status: Acute (2) DM2 (diabetes mellitus, type 2) Status: Chronic Qualifiers: Diabetes mellitus correction insulin use: with intermediate manager use Diabetes mellitus complication status: with kidney complications Diabetes mellitus complication detail: with chronic kidney disease Chronic kidney disease stage : stage 3 (moderate) Qualified Code(s): E11.22 - Type 2 diabetes mellitus with diabetic chronic kidney disease; N18.3 - Chronic kidney disease, stage 3 ( moderate); Z79.4 - skilled nursing (current) use of insulin (3) HTN (hypertension) Code(s): I10 - ESSENTIAL (PRIMARY) HYPERTENSION Status: Chronic Qualifiers: (4) Morbid obesity with BMI of 40.0-44.9, adult Code(s): E66.01 - MORBID (SEVERE) OBESITY DUE TO EXCESS CALORIES; Z68.41 - BODY MASS INDEX (BMI) 40.0-44.9, ADULT Status: Chronic - Plan continue antibiotics, out of bed/ambulate s/p I&D. Continue IV Zosyn and vancomycin. 1800 nelson diet. HTN controlled. Continue accuchecks, insulin sliding scale.
[2019-06-06 15:21] LABS: Troponin I Less than 0.010 ng/mL (< 0.028)
[2019-06-06] MEDS ORDERED: Lidocaine 2% Viscous Solution 10 ML, Aluminum & Magnesium Hydroxide 30 ML SSW PRN (17:19)
[2019-06-06] MEDS ORDERED: Lidocaine 2% Viscous Solution 10 ML, Aluminum & Magnesium Hydroxide 30 ML SSW SCH (17:30)
[2019-06-06 20:51] LABS: Vancomycin, Trough 17.4 ug/mL
[2019-06-06 20:57] LABS: Troponin I 0.011 ng/mL (< 0.028)
[2019-06-07] MEDS: Morphine 2 MG/ML SYRINGE SLOW IVP PRN (01:06)
[2019-06-07] MEDS: Piperacillin/Tazobactam 3.375 GM in Sodium Chloride 0.9% 100 ML IVPB SCH ×4 (01:07→17:25)
[2019-06-07] MEDS: Loperamide HCl 2 MG CAP PO PRN ×2 (02:35→09:15)
[2019-06-07] MEDS: HYDROcodone/Acetaminophen 5/325 mg Tablet PO PRN ×3 (02:37→15:49)
[2019-06-07 05:49] LABS: #Basophils 0.1 thou/uL (0.0-0.2); #Eosinphils 0.1 thou/uL (0.0-0.7); #Lymphocytes 2.9 thou/uL (1.20-3.40); #Monocytes 1.2 thou/uL (0.11-0.59); #Neutrophils 15.2 thou/uL (1.40-6.50); %Basophils 0.4 % (0.0-1.0); %Eosinophils 0.3 % (0.0-10.0); %Lymphocytes 15.1 % (21.0-51.0); %Neutrophils 78.3 % (42.0-75.0); Hemoglobin 10.2 g/dL (12.0-16.0); Mean Corpuscular HGB CONC 32.9 g/dL (32.0-36.0); Mean Corpuscular Hemoglobin 26.5 pg (27.0-31.0); Mean Corpuscular Volume 80.7 fL (78.0-98.0); Mean Platelet Volume 8.8 fL (7.4-10.4); Platelet Count 266 thou/uL (130-400); RBC Distribution Width 14.2 % (11.5-14.5); Red Blood Cell (RBC) Count 3.86 mill/uL (4.20-5.40); White Blood Cell (WBC) Count 19.4 thou/uL (4.8-10.8)
[2019-06-07 06:09] LABS: Anion Gap 11 mmol/L (10-20); BUN (Urea Nitrogen) 18 mg/dL (7.0-18.7); Calc. Creatinine Clearance 101 mL/min (70-130); Calcium 9.1 mg/dL (7.8-10.44); Carbon Dioxide 26 mmol/L (22-29); Chloride 101 mmol/L (98-107); Estimated GFR-MDRD 55; Glucose 212 mg/dL (70-105); Sodium 134 mmol/L (136-145)
[2019-06-07] MEDS: Insulin Regular 300 UNITS/3 ML VIAL SC PRN ×2 (06:14→12:56)
[2019-06-07] MEDS: Pregabalin 75 MG CAP PO SCH (07:58)
[2019-06-07] MEDS: Saccharomyces boulardii 250 MG CAP PO SCH (07:59)
[2019-06-07] MEDS: Famotidine 20 MG TAB PO SCH (07:59)
[2019-06-07] MEDS: HumuLIN 70/30 (300 UNITS/3 ML VIAL) SC SCH (08:00)
[2019-06-07] MEDS ORDERED: Atenolol 50 MG TAB PO SCH (09:00)
[2019-06-07] MEDS: Vancomycin HCl 1 GM in Premix Bag 1 BAG IVPB SCH (09:16)
--- NOTE | 2019-06-07 13:45 | PDOC.HOSPP ---
- Subjective Encounter Date: 06/07/19 Encounter Time: 10:00 Subjective: Pt seen for followup re: foot abscess. Feels better. No complaints. - Objective Vital Signs & Weight: Vital Signs (12 hours) Temp Pulse Resp BP BP Pulse Ox 06/07/19 08:00 98 06/07/19 07:37 98.1 F 76 20 118/84 98 06/07/19 04:21 98.2 F 86 18 117/70 98 Weight Admit Weight 216 lb 7.903 oz Weight 216 lb 7.903 oz I&O: 06/06/19 06/07/19 06/08/19 06:59 06:59 06:59 Intake Total 2500 3800 Balance 2500 3800 Result Diagrams: 06/07/19 05:21 06/07/19 05:21 Additional Labs: Accuchecks 06/07/19 06/07/19 06/06/19 11:24 04:23 20:01 POC Glucose 176 H 251 H 518 H 06/06/19 16:11 POC Glucose 499 H Labs and MARs reviewed by fl Hospitalist ROS - Review of Systems Cardiovascular: denies: chest pain, palpitations, orthopnea, paroxysmal noc. dyspnea, edema, light headedness Gastrointestinal: denies: nausea, vomiting, abdominal pain, diarrhea, constipation, melena, hematochezia - Medication Medications: Active Medications Generic Name Dose Route Start Last Admin Trade Name Freq PRN Reason Stop Dose Admin Acetaminophen 1,000 mg 06/05/19 02:45 06/05/19 19:27 Tylenol PO 1,000 mg Q6H PRN Administration Mild Pain (1-3) Hydrocodone Bitart/Acetaminophen 1 tab 06/05/19 01:49 06/07/19 09:16 Jackson 5/325 PO 1 tab Q6H PRN Administration Pain Famotidine 20 mg 06/05/19 09:00 06/07/19 07:59 Pepcid PO 20 mg BID BOGDAN Administration Piperacillin Sod/Tazobactam 100 mls @ 200 mls/hr 06/05/19 06:00 06/07/19 12: 55 Sod 3.375 gm/ Sodium Chloride IVPB 100 mls Q6HR BOGDAN Administration Vancomycin HCl 1 gm/ Device 200 mls @ 200 mls/hr 06/05/19 09:00 06/07/19 09: 16 IVPB 200 mls Q12HR BOGDAN Administration Insulin Human Isoph/Insulin Regular 30 units 06/05/19 21:00 06/06/19 20:26 Humulin 70/30 SC 30 unit QPM BOGDAN Administration Insulin Human Isoph/Insulin Regular 40 units 06/05/19 09:00 06/07/19 08:00 Humulin 70/30 SC 40 unit QAM BOGDAN Administration Insulin Human Regular 0 units 06/05/19 01:50 06/07/19 12:56 Humulin R SC 2 unit .MODERATE SLIDING SC PRN Administration MODERATE SLIDING SCALE Protocol Insulin Human Regular 0 units 06/05/19 01:50 06/06/19 21:56 Humulin R SC 5 unit .BEDTIME SLIDING SC PRN Administration BEDTIME SLIDING SCALE Protocol Morphine Sulfate 2 mg 06/06/19 09:39 06/07/19 01:06 Morphine SLOW IVP 2 mg Q4H PRN Administration Pain Ondansetron HCl 4 mg 06/05/19 02:45 06/05/19 14:31 Zofran Odt PO 4 mg Q6H PRN Administration Nausea/Vomiting Ondansetron HCl 4 mg 06/05/19 02:45 06/06/19 09:51 Zofran IVP 4 mg Q6H PRN Administration Nausea/Vomiting Pregabalin 150 mg 06/05/19 09:00 06/07/19 07:58 Lyrica PO 150 mg BID BOGDAN Administration Saccharomyces Boulardii 250 mg 06/05/19 09:00 06/07/19 07:59 Florastor PO 250 mg DAILY BOGDAN Administration Sodium Chloride 10 ml 06/05/19 09:00 06/07/19 10:54 Flush - Normal Saline IVF 10 ml Q12HR BOGDAN Administration - Exam General Appearance: NAD, awake alert Eye: anicteric sclera ENT: normocephalic atraumatic Neck: supple, no lymphadenopathy Heart: RRR Respiratory: CTAB, no rales Gastrointestinal: soft, non-tender Extremities: no clubbing Skin - other findings: wound as documented Musculoskeletal: no muscle wasting Psychiatric: oriented to person Hosp A/P (1) Diabetic foot infection Code(s): E11.628 - TYPE 2 DIABETES MELLITUS WITH OTHER SKIN COMPLICATIONS; L08.9 - LOCAL INFECTION OF THE SKIN AND SUBCUTANEOUS TISSUE, UNSP Status: Acute (2) DM2 (diabetes mellitus, type 2) Status: Chronic Qualifiers: Diabetes mellitus manager terminal insulin use: with mcc use Diabetes mellitus complication status: with kidney complications Diabetes mellitus complication detail: with chronic kidney disease Chronic kidney disease stage : stage 3 (moderate) Qualified Code(s): E11.22 - Type 2 diabetes mellitus with diabetic chronic kidney disease; N18.3 - Chronic kidney disease, stage 3 ( moderate); Z79.4 - [facility]CF (current) use of insulin (3) HTN (hypertension) Code(s): I10 - ESSENTIAL (PRIMARY) HYPERTENSION Status: Chronic Qualifiers: (4) Morbid obesity with BMI of 40.0-44.9, adult Code(s): E66.01 - MORBID (SEVERE) OBESITY DUE TO EXCESS CALORIES; Z68.41 - BODY MASS INDEX (BMI) 40.0-44.9, ADULT Status: Chronic - Plan continue antibiotics, out of bed/ambulate s/p I&D. Continue IV Zosyn and vancomycin for now, step down to oral antibiotics per podiatry. HTN controlled. Continue accuchecks, insulin sliding scale. Switch to aggressive sliding scale.
[2019-06-07] MEDS ORDERED: Insulin Regular 300 UNITS/3 ML VIAL SC PRN (13:47)
[2019-06-07 17:15] VITALS: BP 136/61; TEMP 97.7
--- NOTE | 2019-06-07 19:05 | DIS ---
DATE OF ADMISSION: 06/05/2019 DATE OF DISCHARGE: 06/07/2019 PRIMARY CARE PROVIDER: Sada Aranda MD DISCHARGE DIAGNOSES: 1. Right foot abscess. 2. Right foot cellulitis. 3. Hyponatremia. CONDITION OF PATIENT ON THE DAY OF DISCHARGE: Stable. I assessed Ms. Olson on the day of discharge. Please refer to my daily hospitalist progress note for further details regarding this hisj-qu-qevi encounter. DISCHARGE MEDICATIONS: Bactrim DS one tablet 2 times a day for 14 days. Otherwise, no change was made to her pre-admission home medications as dictated by Dr. Roberto in his history and physical note dated 06/05/2019. CONSULTATIONS DURING THIS HOSPITALIZATION: Podiatry, Dr. Edward. POST-DISCHARGE FOLLOWUP: The patient is advised to follow up with primary care provider in 3 to 5 days and with Podiatry Service in 1 week's time. HOSPITAL COURSE: Ms. Olson is a pleasant 49-year-old lady who was admitted to [facility] on 06/05/2019, for right foot cellulitis/abscess. MRI of the right foot done on 06/05/2019, showed 1.5 x 1.8 cm subcutaneous gas collection within the plantar aspect of the foot adjacent to the medial plantar fascia band at the level of the anterior calcaneus. She also had suspected lymphedema of the ankle and foot. She was seen by Podiatry service. On 06/06/2019, she underwent incision and drainage of right foot abscess. Bacterial culture grew Staphylococcus aureus, nonhemolytic Streptococcus and two gram-negative rods. Podiatry Service will follow up on the results of the bacterial cultures. She has been cleared for discharge. She also had episode of diarrhea. Stool lactoferrin was normal. Clostridium difficile test was positive for antigen and negative for toxin. Her diarrhea also resolved. Many thanks for allowing me to participate in your patient's care. Please feel free to contact me with any questions or concerns. On the day of discharge, she has sodium 134, potassium 4.0, creatinine 1.07. White count 19,400, hemoglobin 10.2, and platelet count 266,000. She had elevated blood sugars during this hospitalization. She has been advised to check her blood sugars 3 times a day and show the readings to her primary care provider so that her diabetes medications can be adjusted. DISCHARGE DESTINATION: Home. TIME SPENT: Total amount of time spent coordinating this discharge: 32 minutes. Job ID: [id number]
--- NOTE | 2019-06-07 19:46 | PRG ---
DATE OF SERVICE: 06/07/2019 SUBJECTIVE: A 49-year-old female seen at bedside, in no acute distress. She is one day status post incision and drainage of right foot abscess/puncture wound. The patient states she is feeling great. She has not had to take any pain medicine. The foot feels much better. She states she has not had a fever in the last 24 hours. She states that the hospitalist had told her that if the wound was looking good, that she may be able to go home today. PHYSICAL EXAMINATION: Temperature max over the last 24 hours 98.2. Right foot bandage was clean, dry, and intact. On removal, there was minimal bleeding to the dressing. No strike through. There was a small wound on the plantar aspect of the right foot, it measures 2 cm x 0.6 cm x 1 cm depth, granular wound base. No purulence. The periwound erythema is decreasing. The swelling has improved to the right foot. LABORATORY DATA: White count is still elevated at 19.4, but that is slowly trending downward. Preliminary culture results showing large amount of Staphylococcus aureus and few gram-negative rods. No susceptibilities available as of yet. ASSESSMENT: Puncture wound to the right foot with abscess formation, status post incision and drainage day #1. PLAN: 1. We will plan to have a dressing reapplied by Wound Care. 2. I am okay with her being transitioned to oral antibiotics. Bactrim would probably be sufficient for coverage at least until we have susceptibilities. 3. We gave the patient my office information to have her follow up as an outpatient or she may also choose to follow up with Wound Care on an outpatient basis. Job ID: [id number]
--- NOTE | 2019-06-08 16:01 | EKG ---
Test Reason : Blood Pressure : / mmHG Vent. Rate : 079 BPM Atrial Rate : 079 BPM P-R Int : 162 ms QRS Dur : 088 ms QT Int : 398 ms P-R-T Axes : 028 -27 009 degrees QTc Int : 456 ms Normal sinus rhythm Moderate voltage criteria for LVH, may be normal variant Borderline ECG When compared with ECG of 22-FEB-2019 23:07, No significant change was found Confirmed by ASHLEY QUINTANA, STamir ([id number]) on 06/08/2019 4:01:31 PM Referred By: Confirmed By:DR. Viv RAMIREZ MD
--- NOTE | 2019-06-08 23:09 | PQF ---
REDDY OLIVIA DAVID [id number] CLINICAL DOCUMENTATION CLARIFICATION FORM: POST DISCHARGE Addendum to original discharge summary date: ____ Late entry note date: __ DATE: 06/08/19 ATTN: Daniel Smith Please exercise your independent, professional judgment in responding to the clarification form. Clinical indicators are provided on the bottom of this form for your review Can you please further clarify the diagnosis based on the clinical indicators below? Please check appropriate box(es): [ ] Sepsis due to: (Pna, UTI,cellulitis, etc.) [ ] SIRS due to non-infectious process (please specify etiology) [ ] with organ dysfunction [ ] without organ dysfunction [ ] Localized infection without sepsis [ x ] Other diagnosis ____No evidence of sepsis [ ] Unable to determine In addition, please specify: Present on Admission (POA): [ ] Yes [ ] No [ ] Unable to determine For continuity of documentation, please document condition throughout progress notes and discharge summary. Thank You. CLINICAL INDICATORS - SIGNS / SYMPTOMS / LABS H and P pg.1- right foot pain H and P pg.1- right foot cellulitis/abscess H and P pg.1- admitted to the hospital with an infection in the right foot H and P pg.2- puncture wound yo the right foot with associated cellulitis and possibility of deeper abscess DS pg.1- blood culture grew Staphylococcus aureus, nonhemolytic Streptococcus and two gram-negative rods RISK FACTORS Diabetes mellitus type 2- H nd P pg.1 CKD 3- Hospitalist PN 06/05 pg. 5 Hypertension- Hospitalist PN 06/05 pg.5 Morbid obesity- Hospitalist PN 06/05 pg.5 Right foot cellulitis- DS pg.1 Right foot abscess- DS pg.1 TREATMENTS: Foot X ray 06/04 Lower extremity MRI 06/05 IV Fluids- SEP IV Antibiotics- SEP I and D_ Operative Report 06/06 Wound Culture- Microbiology 06/06 (This form is maintained as a part of the permanent medical record) 2014 [employer]. All Rights Reserved Alfred [email or web address] [not provided] MTDD
--- NOTE | 2019-06-09 18:38 | PQF ---
REDDY OLIVIA TYLER [facility] [id number] CLINICAL DOCUMENTATION CLARIFICATION FORM: POST DISCHARGE Addendum to original discharge summary date: ____ Late entry note date: __ DATE: 06/09/19 ATTN: Tanmay Moody Please exercise your independent, professional judgment in responding to the clarification form. Clinical indicators are provided on the bottom of this form for your review Can you please further clarify the depth and the procedure being performed? Please check appropriate box(s): [ ] Excisional Debridement: [ ] Excised [ ] Cut away [ ] Other: Depth / layer: (deepest layer of debridement): [ ] Skin[ ] SubQ Tissue [ ] Fascia [ ] Muscle [ ] Tendon [ ] Bone Instruments used: [ ] Scissors [ ] Scalpel [ ] Curette [ ] Soft tissue clipper [ ] Other: [ ] Non-excisional Debridement: (Removal by flushing, brushing, chemical, or washing) Depth / layer: (deepest layer of debridement): [ ] Skin[ ] Subcutaneous [ ] Fascia [ ] Muscle [ ] Tendon [ ] Bone [ ] Incision and Drainage only (No Debridement): Depth:[ ] Skin [ ] Subcutaneous [ ] Fascia [ ] Muscle [ ] Tendon [ ] Bone [ ] Escharectomy [ ] Other procedure diagnosis [ ] Unable to determine For continuity of documentation, please document condition throughout progress notes and discharge summary. Thank You. CLINICAL INDICATORS - SIGNS / SYMPTOMS / LABS OP REPORT pg1 06/06- "incision and drainage of abscess right foot" OP REPORT pg1 06/06- "The wound tract was excised. There was some slight necrotic tissue within the wound tract, which was all excised and removed" OP REPORT pg1 06/06- "Blunt dissection through the subcu tissue showed a large pocket of air, no purulence, no necrotic tissue or liquefactive tissue within this space" RISK FACTORS Diabetes mellitus type 2- H nd P pg.1 CKD 3- Hospitalist PN 06/05 pg. 5 Hypertension- Hospitalist PN 06/05 pg.5 Morbid obesity- Hospitalist PN 06/05 pg.5 Right foot cellulitis- DS pg.1 Right foot abscess- DS pg.1 TREATMENTS: Foot X ray 06/04 Lower extremity MRI 06/05 IV Fluids- SEP IV Antibiotics- SEP I and D_ Operative Report 06/06 Wound Culture- Microbiology 06/06 (This form is maintained as a part of the permanent medical record) 2015 [employer] All Rights Reserved Alfred [email or web address] [not provided] MTDD
--- NOTE | 2019-06-09 18:50 | PQF ---
[employer] Illustrator [employer] Winform Viewer CORWINTONIAREDDY SHANTELL YOST [id number] CLINICAL DOCUMENTATION CLARIFICATION FORM: POST DISCHARGE Addendum to original discharge summary date: ____ Late entry note date: __ DATE: 06/09/19 ATTN: Shantell Smith Please exercise your independent, professional judgment in responding to the clarification form. Clinical indicators are provided on the bottom of this form for your review Can you please further clarify the etiology of right foot cellulitis? Please check appropriate box(s): [ ] Due to diabetic foot infection [ x ] Due to due to puncture wound from stepping on a tack [ ] Other diagnosis [ ] Unable to determine In addition, please specify: Present on Admission (POA): [ x] Yes [ ] No [ ] Unable to determine For continuity of documentation, please document condition throughout progress notes and discharge summary. Thank You. CLINICAL INDICATORS - SIGNS / SYMPTOMS / LABS H and P pg.1- right foot pain H and P pg.1- right foot cellulitis/abscess H and P pg.1- admitted to the hospital with an infection in the right foot" H and P pg.2- puncture wound yo the right foot with associated cellulitis and possibility of deeper abscess DS pg.1- blood culture grew Staphylococcus aureus, nonhemolytic Streptococcus and two gram-negative rods RISKS: Diabetes mellitus type 2- H nd P pg.1 CKD 3- Hospitalist PN 06/05 pg. 5 Hypertension- Hospitalist PN 06/05 pg.5 Morbid obesity- Hospitalist PN 06/05 pg.5 Right foot cellulitis- DS pg.1 Right foot abscess- DS pg.1 TREATMENT: Foot X ray 06/04 Lower extremity MRI 06/05 IV Fluids- MAR IV Antibiotics- MAR I and D_ Operative Report 06/06 Wound Culture- Microbiology 06/06 (This form is maintained as a part of the permanent medical record) 2014 [employer]. All Rights Reserved [email or web address] [not provided] MTDD
== END 2019-06-07 17:51 | disposition home or self-care (01) | DRG 580 ==
LOC: ERS 20:23 → T4-B 06-05 00:50
PROVIDERS: ADMIT Family Medicine; ATTEND Family Medicine
PROC: 0J9Q0ZZ Drainage of Right Foot Subcutaneous Tissue and Fascia, Open Approach (ICD-10-PCS; principal; 2019-06-06)
PROC: 0JDR0ZZ Extraction of Left Foot Subcutaneous Tissue and Fascia, Open Approach (ICD-10-PCS; 2019-06-06)
DX: L02.611 Cutaneous abscess of right foot (principal); L03.115 Cellulitis of right lower limb; Z68.41 Body mass index [BMI] 40.0-44.9, adult; E87.1 Hypo-osmolality and hyponatremia; E11.628 Type 2 diabetes mellitus with other skin complications; E11.40 Type 2 diabetes mellitus with diabetic neuropathy, unspecified; G43.909 Migraine, unspecified, not intractable, without status migrainosus; F32.9 Major depressive disorder, single episode, unspecified; E11.22 Type 2 diabetes mellitus with diabetic chronic kidney disease; N18.3 Chronic kidney disease, stage 3 (moderate); E11.65 Type 2 diabetes mellitus with hyperglycemia; D63.1 Anemia in chronic kidney disease; I10 Essential (primary) hypertension; I89.0 Lymphedema, not elsewhere classified; B95.61 Methicillin susceptible Staphylococcus aureus infection as the cause of diseases classified elsewhere; E66.01 Morbid (severe) obesity due to excess calories; E11.42 Type 2 diabetes mellitus with diabetic polyneuropathy; Z87.891 Personal history of nicotine dependence; Z88.1 Allergy status to other antibiotic agents; Z79.4 Long term (current) use of insulin; Z79.899 Other long term (current) drug therapy; Z88.8 Allergy status to other drugs, medicaments and biological substances
CPT/HCPCS: 36415; 36416; 80048; 80053; 80202; 81003; 81015; 83630; 84484; 85007; 85025; 85027; 86140; 87040; 87070; 87077; 87186; 87205; 87324; 87449; 87493; 93005; 93010; 96365; 96374; A9579; J1100; J1170; J1815; J1956; J2001; J2270; J2405; J2543; J2704; J3010; J3370; J3490; Q0162; S0020

== ENCOUNTER 2019-06-22 13:51 | Inpatient (IN) | payer SELFPAY ==
[2019-06-22 17:53] LABS: #Basophils 0.1 thou/uL (0.0-0.2); #Eosinphils 0.4 thou/uL (0.0-0.7); #Lymphocytes 4.4 thou/uL (1.20-3.40); #Monocytes 0.8 thou/uL (0.11-0.59); %Basophils 0.5 % (0.0-1.0); %Eosinophils 3.2 % (0.0-10.0); %Lymphocytes 31.9 % (21.0-51.0); %Neutrophils 58.5 % (42.0-75.0); Hemoglobin 12.5 g/dL (12.0-16.0); Mean Corpuscular HGB CONC 33.3 g/dL (32.0-36.0); Mean Corpuscular Hemoglobin 26.9 pg (27.0-31.0); Mean Corpuscular Volume 80.8 fL (78.0-98.0); Mean Platelet Volume 8.5 fL (7.4-10.4); Platelet Count 332 thou/uL (130-400); RBC Distribution Width 14.7 % (11.5-14.5); Red Blood Cell (RBC) Count 4.64 mill/uL (4.20-5.40); White Blood Cell (WBC) Count 13.7 thou/uL (4.8-10.8)
[2019-06-22 18:02] LABS: BHCG - Serum Negative (NEGATIVE); Pregs Control Background? CLEAR/WHITE (CLR/WHITE); Pregs Control Bar Appear? YES (CONTROL BAR)
--- NOTE | 2019-06-22 18:07 | RAD ---
RIGHT FOOT THREE VIEWS: Indications: Wound, bottom of right foot. FINDINGS: Small enthesophyte from the plantar calcaneus. There is a soft tissue deformity involving the plantar aspect of the mid foot consistent with known open wound. No osseous abnormality. IMPRESSION: No acute osseous abnormality. POS: OFF
[2019-06-22] MEDS ORDERED: HYDROcodone/Acetaminophen 5/325 mg Tablet ONE (19:14)
[2019-06-22 19:33] LABS: ALT (SGPT) 14 U/L (8-55); AST (SGOT) 12 U/L (5-34); Albumin 3.7 g/dL (3.5-5.0); Alkaline Phosphatase 118 U/L (40-110); Anion Gap 16 mmol/L (10-20); BUN (Urea Nitrogen) 34 mg/dL (7.0-18.7); Bilirubin, Total 0.2 mg/dL (0.2-1.2); Calc. Creatinine Clearance 0 mL/min (70-130); Calcium 9.5 mg/dL (7.8-10.44); Carbon Dioxide 22 mmol/L (22-29); Chloride 101 mmol/L (98-107); Estimated GFR-MDRD 39; Globulin 4.6 g/dL (2.4-3.5); Glucose 397 mg/dL (70-105); Potassium 4.9 mmol/L (3.5-5.1); Protein, Total 8.3 g/dL (6.0-8.3); Sodium 134 mmol/L (136-145)
[2019-06-22] MEDS ORDERED: Acetaminophen 325 MG TAB PO PRN (20:58)
[2019-06-22] MEDS ORDERED: HumaLOG 300 UNITS/3 ML VIAL SC PRN ×2 (21:15)
[2019-06-22] MEDS ORDERED: Dextrose 50% Abboject 50 ML SYRINGE SLOW IVP PRN (21:15)
[2019-06-22] MEDS ORDERED: Dextrose 5% in Water 1,000 ML IV PRN (21:15)
[2019-06-22] MEDS ORDERED: HumuLIN 70/30 (300 UNITS/3 ML VIAL) SC SCH (21:30)
--- NOTE | 2019-06-22 21:42 | HP ---
PRIMARY CARE PHYSICIAN: [facility] clinic. CHIEF COMPLAINT: Worsening right foot wound, pain, and drainage x1 to 2 days. HISTORY OF PRESENT ILLNESS: This is a 49-year-old female, type 2 diabetic insulin dependent, with microvascular complications including peripheral neuropathy of bilateral lower extremities and recent left toe amputations months ago, who thereafter developed a right foot wound after stepping on a tack and required recent hospitalization for debridement with MRI negative for osteomyelitis at that time and was discharged home weeks ago on oral Bactrim for polymicrobial foot cultures and local wound care with Kerlix packing and overlying gauze. She was in her usual state of health up until yesterday when she noted significant pain upon ambulation and drainage of serosanguineous output on overlying gauze prompting further evaluation. The patient reports in the past week having vague, shooting pains different from her neuropathy in her right heel and towards her distal lower extremity, which are unusual for her. She denies any complaints of fevers, reports vague chills, and has not felt right in the past several days. She denies any further trauma to the affected area. She is compliant with home insulin NovoLog 70/30, 60 units every morning and 40 units every night and reports improving A1c of 9.3%. In the ER, labs revealed a downtrending white blood cell count of 13.7 from two weeks prior and chemistries revealed downtrending proinflammatory markers. One-view chest x-ray of right foot was unremarkable and did not suggest osteomyelitis, but the patient was noted to have an increasing slough from the wound and had concerns for possible deeper infection. She was administered oral [place], blood cultures, thereafter IV vancomycin, IV cefepime, and admitted for further observation. At bedside, the patient corroborates the history. She offers no other acute complaints. She has not seen a inspector ball points for outpatient followup yet and was instructed to follow up once she ran out of wound care supplies. She admits to nicotine dependence and denies any history of peripheral arterial disease. PAST MEDICAL HISTORY: Type 2 diabetes mellitus with microvascular complications including peripheral neuropathy and recent left toe amputation, recent right foot wound debridement, peripheral neuropathy, and chronic diarrhea. PAST SURGICAL HISTORY: section x3, left toe amputation, right plantar wound debridement on 06/06/2019 by inspector ball points, Dr. Edward. SOCIAL HISTORY: The patient is , lives at home with her spouse. She admits to nicotine dependence. She denies any illicit drug use. She is ambulatory without assistive devices. ALLERGIES: LISTED TO ROCEPHIN AND LACTOSE. HOME MEDICATIONS: Will be reviewed as per admission medication reconciliation. FAMILY HISTORY: The patient's mother and father both have diabetes mellitus. The patient's father also has coronary heart disease. REVIEW OF SYSTEMS: As mentioned, pertinent positives as per HPI. Remainder of review of systems negative. PHYSICAL EXAMINATION: VITAL SIGNS: Temperature maximum 98.3, pulse 83, sinus rhythm, blood pressure 116/70, oxygen saturation 98%, respirations 18, unlabored. GENERAL APPEARANCE: A middle-aged female, awake, alert, oriented, coherent, lucid, nontoxic in appearance. HEENT: Normocephalic, atraumatic. Pupils equally round. Extraocular muscles intact. No facial asymmetry. Moist mucous membranes. NECK: Supple. CARDIOVASCULAR: S1 and S2. Regular rate and rhythm. No harsh murmurs. No reproducible chest wall tenderness. LUNGS: Nonlabored respiration on bilateral posterior auscultation. Symmetrical chest expansion without wheezing or rales. ABDOMEN: Soft, nontender, nondistended. No peritoneal signs. EXTREMITIES: There is a wound noted over the plantar aspect of the right foot, deep in appearance with overlying dry, cracked skin. There is surrounding tenderness with palpation circumferential to this area including the heel. There is no expressible drainage of affected area. There is evidence of prior amputation to the left toes of the foot; otherwise dry, cracked skin noted. There are palpable dorsalis pedis pulses in bilateral feet and palpable right posterior tibial pulse. SKIN: Warm to touch without rash or pallor. There is evidence of dry, cracked skin involving the bilateral feet. NEUROLOGIC: No facial asymmetry. Full passive range of motion in bilateral arms and legs, decreased peripheral sensation of the bilateral feet extending toward the distal lower extremities. LABORATORY DATA: Sodium 134, potassium 4.9, chloride 101, bicarb 22, glucose 397, BUN and creatinine 34/1.45, GFR 39, alkaline phosphatase 118, lactic acid 2.3. CBC reveals a white blood cell count of 13.7, H and H of 12.5/37.5, platelets of 332. Differential with 59% neutrophils. CRP is 2.41, notably downtrending from two weeks prior. IMAGING: Three-view right foot x-ray suggests no acute osseous abnormality. ASSESSMENT: 1. Acute pain involving a chronic right foot wound. The patient will be admitted as observation status, given concerns for possible infection of chronic right foot wound. Chief Lending Officer will be consulted to assess for deep-seated infection. In the interim, we will obtain MRI of right foot without contrast to evaluate for soft tissue infection including osteomyelitis, given recent worsening of the patient' s complaints. We will consult Wound Care for local wound care of affected area. We will continue 70/30 twice daily insulin and monitor for euglycemia. Patient has been advised nicotine cessation. Will renally dose empiric antibiotics with Vancomycin and Levaquin, noting recent microbiology culture suggesting methicillin-resistant Staphylococcus aureus as well as polymicrobial species and Rocephin allergy is noted. We will defer further recommendations to subspecialist. 2. Chronic right foot wound. The patient recently sustained an injury to the right plantar foot after unknowingly stepping on a tack. She required recent debridement by inspector ball points with microbiology cultures noted for polymicrobial species. She has been performing daily home wound care with ribbon gauze, Kerlix packing with overlying 4 x 4 gauze. 3. Type 2 diabetes mellitus with microvascular complications including neuropathy and nonhealing foot wounds. We will continue home insulin and monitor Accu- Cheks for euglycemia. 4. Nicotine dependence. The patient has been advised nicotine cessation. 5. History of perinephric abscess and bacteremia. 6. Chronic kidney disease stage 3, likely secondary to diabetes mellitus. 7. History of left toe amputation. Deep venous thrombosis prophylaxis: Low molecular weight heparin. DISPOSITION: The patient will be admitted as observation status pending further evaluation by Podiatry to determine further management. Job ID: [id number] [facility]
[2019-06-22 22:08] VITALS: BMI 40.1
[2019-06-22] MEDS ORDERED: Vancomycin 1.5 GRAM/300 ML BAG 1.5 GM in Premix Bag 1 BAG IVPB SCH (22:30)
[2019-06-22 22:52] LABS: Lactic Acid 1.7 mmol/L (0.5-2.2)
[2019-06-22] MEDS: HYDROcodone/Acetaminophen 10/325 mg Tablet PO PRN (22:53)
[2019-06-23] MEDS: HYDROcodone/Acetaminophen 10/325 mg Tablet PO PRN ×3 (04:53→22:02)
[2019-06-23] MEDS: Ondansetron ODT 4 MG TAB PO PRN ×2 (04:57→12:05)
[2019-06-23] MEDS: Simethicone Chewable 80 MG TAB PO PRN ×2 (07:58→20:46)
[2019-06-23] MEDS: Pregabalin 75 MG CAP PO SCH ×2 (07:59→20:46)
[2019-06-23] MEDS: Enoxaparin Sodium 40 MG/0.4 ML SYRINGE SC SCH (08:00)
[2019-06-23] MEDS: HumuLIN 70/30 (300 UNITS/3 ML VIAL) SC SCH (08:01)
[2019-06-23] MEDS: Piperacillin/Tazobactam 3.375 GM in Sodium Chloride 0.9% 100 ML IVPB SCH ×2 (11:58→17:21)
--- NOTE | 2019-06-23 12:00 | MRI ---
MRI RIGHT FOOT PERFORMED WITHOUT CONTRAST ENHANCEMENT: Date: 06/23/19 HISTORY: Patient has a chronic wound on the plantar aspect of the foot. History of diabetes. Neuropathy. Patie nt stepped on a tack approximately 1 month ago. FINDINGS: An ulcer is seen along the plantar aspect of the foot. This is just beneath the more anterior aspect of the calcaneus. There is subcutaneous edema change. There is no underlying evidence of osteomyeliti s. There is no soft tissue abscess seen. IMPRESSION: No evidence of osteomyelitis or soft tissue abscess. POS: TPC
[2019-06-23] MEDS ORDERED: diphenhydrAMINE 25 MG CAP PO PRN (16:58)
[2019-06-23] MEDS ORDERED: HumuLIN 70/30 (300 UNITS/3 ML VIAL) SC SCH (21:00)
[2019-06-23] MEDS: Vancomycin 1.5 GRAM/300 ML BAG 1.5 GM in Premix Bag 1 BAG IVPB SCH (22:02)
--- NOTE | 2019-06-23 22:20 | PDOC.HOSPP ---
- Subjective Subjective: Had reaction to the Levaquin that caused itching and nasal congestion, headache. Foot does not actually hurt due to neuropathy. - Objective Vital Signs & Weight: Vital Signs (12 hours) Temp Pulse Resp BP Pulse Ox 06/23/19 19:11 97.7 F 74 18 124/78 99 06/23/19 14:16 100 Weight Admit Weight 212 lb 3.2 oz Weight 212 lb 3.2 oz I&O: 06/22/19 06/23/19 06/24/19 06:59 06:59 06:59 Intake Total 440 300 Balance 440 300 Result Diagrams: 06/22/19 17:44 06/22/19 17:44 Additional Labs: Accuchecks 06/23/19 06/23/19 06/23/19 19:17 11:37 04:42 POC Glucose 194 H 74 145 H Hospitalist ROS - Medication Medications: Active Medications Generic Name Dose Route Start Last Admin Trade Name Freq PRN Reason Stop Dose Admin Hydrocodone Bitart/Acetaminophen 1 tab 06/22/19 20:58 06/23/19 22:02 [place] 10/325 PO 1 tab Q6H PRN Administration Severe Pain (7-10) Diphenhydramine HCl 25 mg 06/23/19 16:58 06/23/19 17:21 Benadryl PO 25 mg Q6H PRN Administration Itching Enoxaparin Sodium 40 mg 06/23/19 09:00 06/23/19 08:00 Lovenox SC 40 mg 0900 BOGDAN Administration Vancomycin HCl 1.5 gm/ Device 300 mls @ 200 mls/hr 06/23/19 22:00 06/23/19 22 :02 IVPB 300 mls Q24HR@2200 BOGDAN Administration Piperacillin Sod/Tazobactam 100 mls @ 200 mls/hr 06/23/19 12:00 06/23/19 17: 21 Sod 3.375 gm/ Sodium Chloride IVPB 100 mls Q6HR BOGDAN Administration Insulin Human Isoph/Insulin Regular 40 units 06/23/19 21:00 06/23/19 20:41 Humulin 70/30 SC Not Given QPM BOGDAN Insulin Human Isoph/Insulin Regular 60 units 06/23/19 09:00 06/23/19 08:01 Humulin 70/30 SC 60 unit QAM BOGDAN Administration Ondansetron HCl 4 mg 06/23/19 04:52 06/23/19 12:05 Zofran Odt PO 4 mg Q6H PRN Administration Nausea/Vomiting Pregabalin 150 mg 06/23/19 09:00 06/23/19 20:46 Lyrica PO 150 mg BID BOGDAN Administration Simethicone 80 mg 06/23/19 07:03 06/23/19 20:46 Mylicon Chewable PO 80 mg QID PRN Administration BLOATING Sodium Chloride 10 ml 06/23/19 09:00 06/23/19 22:02 Flush - Normal Saline IVF 10 ml Q12HR BOGDAN Administration - Exam General Appearance: NAD, awake alert Heart: RRR, no murmur, no gallops, no rubs, normal peripheral pulses Respiratory: CTAB, no wheezes, no rales, no ronchi, normal chest expansion, no tachypnea, normal percussion Gastrointestinal: soft, non-tender, non-distended, normal bowel sounds, no palpable masses, no hepatomegaly, no splenomegaly, no bruit Extremities: no cyanosis, no clubbing, no edema Extremities - other findings: RIght foot dressed. Skin: normal turgor, no lesions, no rashes Musculoskeletal: normal tone, normal strength, no muscle wasting Psychiatric: normal affect, normal behavior, A&O x 3 Hosp A/P (1) Cellulitis of right foot Code(s): L03.115 - CELLULITIS OF RIGHT LOWER LIMB Status: Acute (2) Diabetic foot infection Code(s): E11.628 - TYPE 2 DIABETES MELLITUS WITH OTHER SKIN COMPLICATIONS; L08.9 - LOCAL INFECTION OF THE SKIN AND SUBCUTANEOUS TISSUE, UNSP Status: Acute (3) MRSA infection Code(s): A49.02 - METHICILLIN RESIS STAPH INFECTION, UNSP SITE Status: Acute (4) CKD (chronic kidney disease) stage 3, GFR 30-59 ml/min Code(s): N18.3 - CHRONIC KIDNEY DISEASE, STAGE 3 (MODERATE) Status: Chronic (5) DM (diabetes mellitus), type 2, uncontrolled Code(s): E11.65 - TYPE 2 DIABETES MELLITUS WITH HYPERGLYCEMIA Status: Chronic Qualifiers: Glycemic state: with hypoglycemia (6) Diabetic neuropathy Code(s): E11.40 - TYPE 2 DIABETES MELLITUS WITH DIABETIC NEUROPATHY, UNSP Status: Chronic Qualifiers: Diabetes mellitus type: type 2 (7) HTN (hypertension) Code(s): I10 - ESSENTIAL (PRIMARY) HYPERTENSION Status: Chronic Qualifiers: (8) Morbid obesity with BMI of 40.0-44.9, adult Code(s): E66.01 - MORBID (SEVERE) OBESITY DUE TO EXCESS CALORIES; Z68.41 - BODY MASS INDEX (BMI) 40.0-44.9, ADULT Status: Chronic - Plan Continue IV abx. Podiatry consult. Wound Care. Karolina for reaction. GRAHAM [place]. Start Zosyn. renal dosing. Continue home meds for DM
[2019-06-24] MEDS: Piperacillin/Tazobactam 3.375 GM in Sodium Chloride 0.9% 100 ML IVPB SCH ×4 (00:23→17:17)
[2019-06-24 07:51] LABS: #Basophils 0.1 thou/uL (0.0-0.2); #Eosinphils 0.6 thou/uL (0.0-0.7); #Lymphocytes 3.6 thou/uL (1.20-3.40); #Monocytes 0.6 thou/uL (0.11-0.59); #Neutrophils 6.7 thou/uL (1.40-6.50); %Basophils 0.8 % (0.0-1.0); %Eosinophils 5.1 % (0.0-10.0); %Lymphocytes 31.4 % (21.0-51.0); %Monocytes 5.3 % (0.0-10.0); %Neutrophils 57.5 % (42.0-75.0); Mean Corpuscular HGB CONC 33.2 g/dL (32.0-36.0); Mean Corpuscular Hemoglobin 27.1 pg (27.0-31.0); Mean Corpuscular Volume 81.8 fL (78.0-98.0); Mean Platelet Volume 8.8 fL (7.4-10.4); Platelet Count 288 thou/uL (130-400); RBC Distribution Width 14.7 % (11.5-14.5); Red Blood Cell (RBC) Count 4.41 mill/uL (4.20-5.40); White Blood Cell (WBC) Count 11.6 thou/uL (4.8-10.8)
[2019-06-24 08:09] LABS: Anion Gap 13 mmol/L (10-20); BUN (Urea Nitrogen) 32 mg/dL (7.0-18.7); Calc. Creatinine Clearance 81 mL/min (70-130); Calcium 9.1 mg/dL (7.8-10.44); Carbon Dioxide 27 mmol/L (22-29); Chloride 102 mmol/L (98-107); Estimated GFR-MDRD 44; Glucose 211 mg/dL (70-105); Potassium 4.8 mmol/L (3.5-5.1); Sodium 137 mmol/L (136-145)
[2019-06-24] MEDS: Pregabalin 75 MG CAP PO SCH ×2 (08:34→22:18)
[2019-06-24] MEDS: Enoxaparin Sodium 40 MG/0.4 ML SYRINGE SC SCH (08:34)
[2019-06-24] MEDS: HumuLIN 70/30 (300 UNITS/3 ML VIAL) SC SCH (09:23)
[2019-06-24] MEDS: HumaLOG 300 UNITS/3 ML VIAL SC PRN (12:30)
--- NOTE | 2019-06-24 20:13 | CON ---
DATE OF CONSULTATION: 06/24/2019 REASON FOR CONSULTATION: Right foot abscess. HISTORY OF PRESENT ILLNESS: A 49-year-old known to me from previous admissions for management of left foot inflammatory process with osteomyelitis, which resulted in partial amputations. Unfortunately, she was walking barefooted in her house and stepped on a tack with the right heel and sustained an injury. She was seen by Dr. Edward in the outpatient setting for this event and he did an I and D on June 06. The operative report was reviewed and a 2 cm incision made over the puncture wound on the plantar aspect of the right heel just distal to the heel fat pad. The wound tract was excised. There was some slight necrotic tissue within the wound tract. This was all excised and removed. There was no evidence of bone exposure or necrotizing features. After that, she was placed on oral Bactrim, but noticed persistence of the drainage and she was admitted for management. She just had an MRI of the foot, which showed some edema in the subcutaneous tissue, but no evidence of osteomyelitis or soft tissue abscess. She currently is awake and alert. She is lying in bed without any distress. No headaches. No change in visual symptoms, sore throat, odynophagia, or dysphagia. No cough or sputum production or chest pain. No abdominal pain or diarrhea. No genitourinary symptoms. No joint symptoms outside the involved area. She has minimal pain in the foot because of neuropathy. PAST MEDICAL HISTORY: Type 2 diabetes; obesity; neuropathy; hyperlipidemia; left foot complications following puncture wound, which resulted in ray amputation second and third toes; and history of left kidney abscess with MSSA bacteremia treated with resolution. SOCIAL HISTORY: Never smoker. Lives in [place]. . ALLERGIES: IODINE. FAMILY HISTORY: Diabetes mellitus type 2. CURRENT MEDICATIONS: 1. Tylenol. 2. [place]. 3. Benadryl. 4. Lovenox. 5. Glucagon insulin. 6. Zofran. 7. Zosyn. 8. Lyrica. 9. Florastor. 10. Vancomycin. PHYSICAL EXAMINATION: VITAL SIGNS: Temperature has been normal, BP 107/73, pulse 79, respirations 18, and O2 saturation 100. SKIN: Shows the open wound in the plantar aspect of the right heel, it has a yellowish discoloration of the skin surrounding this area, but no erythema. Probing the wound with a Q-tip shows a depth of about 2 cm. There is no evidence of bone exposure. The base of the wound appears reddish. No lymphadenopathy. HEENT: Noncontributory. NECK: Supple. No jugular vein distention. LUNGS: Symmetric. Clear breath sounds. HEART: S1 and S2, regular rate. No S3 or S4. ABDOMEN: Soft, not distended or tender. No ascites. No bladder distention. EXTREMITIES: No other joint inflammatory activity. Pulses are 2+ in dorsalis pedis. Cap refill normal. NEUROLOGICAL: Nonfocal including cognitive function. LABORATORY DATA: Sodium 137 and creatinine is 1.3, which is little bit higher than her baseline. Liver profile normal. Alkaline phosphatase 118. CRP 2.4, albumin 3.7. White cell count was 13.7 and now 11.6, hemoglobin 12 with a normal differential. Microbiology with MRSA, E faecalis, E coli, Morganella morganii. Both Gram negatives are susceptible to quinolones. The MRSA is susceptible to clindamycin. The MRSA is resistant to quinolones. ASSESSMENT: Neuropathy secondary to diabetes mellitus type 2, recurring puncture with puncture wounds in the feet because of lack of proper footwear when she is walking in the home, both events in the left and right foot occurred pretty much the same way. Now she has this finding and fortunately there is no evidence of osteomyelitis and she has had proper debridement. I have recommended discharge planning on oral ciprofloxacin and Bactrim. May add clindamycin as a third agent or doxycycline. I usually do not trust Bactrim alone for management of methicillin-resistant Staphylococcus aureus infections in soft tissues unless the dose is increased to 2 DS b.i.d., but that dose usually is poorly tolerated, so what I do is add a second agent either doxycycline or clindamycin. So ciprofloxacin 500 b.i.d. plus Bactrim DS one b.i.d. and doxycycline 100 b.i.d. would be the chosen regimen for discharge planning. Duration of therapy probably around 3 weeks. Follow up in the clinic. Job ID: [id number]
[2019-06-24] MEDS: HYDROcodone/Acetaminophen 10/325 mg Tablet PO PRN (20:39)
[2019-06-24 21:27] LABS: Vancomycin, Trough 14.9 ug/mL
[2019-06-24] MEDS: NPH, Human Insulin Isophane 300 UNIT/3 ML VIAL SC SCH (21:28)
[2019-06-24] MEDS: Vancomycin 1.5 GRAM/300 ML BAG 1.5 GM in Premix Bag 1 BAG IVPB SCH (22:20)
--- NOTE | 2019-06-24 23:54 | PDOC.HOSPP ---
- Subjective Encounter Date: 06/24/19 Encounter Time: 11:30 Subjective: Patient seen and examined for Sepsis. No fever. Pain controlled. No new complaints. No overnight events - Objective Vital Signs & Weight: Vital Signs (12 hours) Temp Pulse Resp BP Pulse Ox 06/24/19 20:00 100 06/24/19 19:17 98.0 F 81 18 133/80 100 06/24/19 17:10 97.4 F L 81 20 117/78 100 06/24/19 12:41 97.5 F L 79 18 107/73 100 Weight Admit Weight 212 lb 3.2 oz Weight 212 lb 3.2 oz I&O: 06/23/19 06/24/19 06/25/19 06:59 06:59 06:59 Intake Total 895 769 8611 Balance 747 468 8588 Result Diagrams: 06/24/19 07:33 06/24/19 07:33 Additional Labs: Accuchecks 06/24/19 06/24/19 06/24/19 19:19 16:38 11:32 POC Glucose 158 H 101 307 H 06/24/19 06/24/19 07:48 05:28 POC Glucose 247 H 213 H Radiology Reviewed by me: Yes (MRI - no osteo) Hospitalist ROS - Review of Systems Cardiovascular: denies: chest pain, palpitations, orthopnea, paroxysmal noc. dyspnea, edema, light headedness, other Gastrointestinal: denies: nausea, vomiting, abdominal pain, diarrhea, constipation, melena, hematochezia, other - Medication Medications: Active Medications Generic Name Dose Route Start Last Admin Trade Name Freq PRN Reason Stop Dose Admin Hydrocodone Bitart/Acetaminophen 1 tab 06/22/19 20:58 06/24/19 20:39 [place] 10/325 PO 1 tab Q6H PRN Administration Severe Pain (7-10) Diphenhydramine HCl 25 mg 06/23/19 16:58 06/23/19 17:21 Benadryl PO 25 mg Q6H PRN Administration Itching Enoxaparin Sodium 40 mg 06/23/19 09:00 06/24/19 08:34 Lovenox SC 40 mg 0900 BOGDAN Administration Vancomycin HCl 1.5 gm/ Device 300 mls @ 200 mls/hr 06/23/19 22:00 06/24/19 22 :20 IVPB 300 mls Q24HR@2200 BOGDAN Administration Piperacillin Sod/Tazobactam 100 mls @ 200 mls/hr 06/23/19 12:00 06/24/19 17: 17 Sod 3.375 gm/ Sodium Chloride IVPB 100 mls Q6HR BOGDAN Administration Insulin Human Lispro 0 units 06/24/19 11:51 06/24/19 12:30 Humalog SC 8 unit .MODERATE SLIDING SC PRN Administration Moderate Correctional Scale Insulin Human NPH 25 unit 06/24/19 21:00 06/24/19 21:28 Humulin N SC Not Given BID BOGDAN Ondansetron HCl 4 mg 06/23/19 04:52 06/23/19 12:05 Zofran Odt PO 4 mg Q6H PRN Administration Nausea/Vomiting Pregabalin 150 mg 06/23/19 09:00 06/24/19 22:18 Lyrica PO 150 mg BID BOGDAN Administration Simethicone 80 mg 06/23/19 07:03 06/23/19 20:46 Mylicon Chewable PO 80 mg QID PRN Administration BLOATING Sodium Chloride 10 ml 06/23/19 09:00 06/24/19 20:41 Flush - Normal Saline IVF 10 ml Q12HR BOGDAN Administration - Exam General Appearance: NAD Neck: supple, no JVD Heart: RRR, no gallops Respiratory: CTAB, no rales Gastrointestinal: soft, non-tender, normal bowel sounds Extremities: no edema Hosp A/P - Plan DVT proph w/SCDs Sepsis due to diabetic foot infection (POA) Lactic acidosis (POA) STEPH on CKD 3 (POA) Morbid obesity BMI 40.1 Diabetic neuropathy PLAN: Cont IV Vanc/Zosyn Monitor Vanc level Await ID input Cont sliding scale Change 70/30 insulin to NPH 25 BID Cont other meds
[2019-06-25] MEDS: Piperacillin/Tazobactam 3.375 GM in Sodium Chloride 0.9% 100 ML IVPB SCH ×3 (00:29→11:41)
[2019-06-25] MEDS ORDERED: Loperamide HCl 2 MG CAP PO SCH (04:30)
[2019-06-25] MEDS: HYDROcodone/Acetaminophen 10/325 mg Tablet PO PRN ×2 (04:42→12:23)
[2019-06-25] MEDS: Ondansetron ODT 4 MG TAB PO PRN (04:44)
[2019-06-25 05:26] LABS: #Basophils 0.1 thou/uL (0.0-0.2); #Eosinphils 0.7 thou/uL (0.0-0.7); #Lymphocytes 3.7 thou/uL (1.20-3.40); #Monocytes 0.7 thou/uL (0.11-0.59); #Neutrophils 6.9 thou/uL (1.40-6.50); %Basophils 0.6 % (0.0-1.0); %Eosinophils 5.8 % (0.0-10.0); %Lymphocytes 30.7 % (21.0-51.0); %Neutrophils 56.8 % (42.0-75.0); Hemoglobin 11.1 g/dL (12.0-16.0); Mean Corpuscular HGB CONC 32.4 g/dL (32.0-36.0); Mean Corpuscular Hemoglobin 26.5 pg (27.0-31.0); Mean Platelet Volume 8.9 fL (7.4-10.4); Platelet Count 250 thou/uL (130-400); RBC Distribution Width 14.6 % (11.5-14.5); Red Blood Cell (RBC) Count 4.18 mill/uL (4.20-5.40); White Blood Cell (WBC) Count 12.1 thou/uL (4.8-10.8)
[2019-06-25 06:01] LABS: Anion Gap 11 mmol/L (10-20); BUN (Urea Nitrogen) 38 mg/dL (7.0-18.7); Calc. Creatinine Clearance 88 mL/min (70-130); Calcium 8.8 mg/dL (7.8-10.44); Carbon Dioxide 25 mmol/L (22-29); Chloride 105 mmol/L (98-107); Estimated GFR-MDRD 48; Glucose 266 mg/dL (70-105); Potassium 4.6 mmol/L (3.5-5.1); Sodium 136 mmol/L (136-145)
[2019-06-25] MEDS: Enoxaparin Sodium 40 MG/0.4 ML SYRINGE SC SCH (08:21)
[2019-06-25] MEDS: Pregabalin 75 MG CAP PO SCH (08:22)
[2019-06-25] MEDS ORDERED: Saccharomyces boulardii 250 MG CAP PO SCH (09:00)
[2019-06-25] MEDS: HumaLOG 300 UNITS/3 ML VIAL SC PRN (12:18)
--- NOTE | 2019-06-25 14:35 | CON ---
DATE OF CONSULTATION: 06/25/2019 HISTORY OF PRESENT ILLNESS: This is a 49-year-old female, seen today at the hospital at bedside, in no apparent distress, resting well. Vital signs stable. Nurse present. The patient was admitted for painful open wound on her right foot. The patient recently early in the month of June underwent an incision and drainage for a punctured wound secondary to stepping on a tack on the bottom of her right foot. The patient was admitted in later May or early June and underwent surgery for the infected right foot. She was discharged, but returned 2 to 3 days ago to the ER with complaints of significant pain and redness and swelling to her foot. The patient is here to be assessed by me. She is a patient of Dr. Tanmay Edward within my podiatry group. PAST MEDICAL HISTORY: Significant for osteomyelitis of the left foot requiring multiple toe amputations, history of diabetes with peripheral neuropathy, history of vertigo. HOME MEDICATIONS: Include Humulin 70/30, Lyrica, meclizine. PAST SURGICAL HISTORY: Include x3, a cyst removal from left shoulder, multiple toe amputations on the left foot, status post incision and drainage puncture wound of plantar right foot. ALLERGIES: THE PATIENT IS ALLERGIC TO LACTOSE AND ROCEPHIN. FAMILY HISTORY: Positive for diabetes and hypertension. SOCIAL HISTORY: She lives in [place]. Nonsmoker. No alcohol or illicit drugs. REVIEW OF SYSTEMS: CONSTITUTIONAL: Today, denies nausea, vomiting, fevers, or chills. INTEGUMENTARY: Open wound of right foot secondary to incision and drainage from a puncture wound. EXTREMITIES: Lower extremity, vascular status 2/4 in dorsalis pedis and posterior tibial pulses bilaterally. Cap refill time less than 3 seconds, bilateral feet to all digits. SKIN: Warm skin. Positive hair growth. NEUROLOGIC: Light touch and protective threshold are significantly diminished. Decreased proprioception. MUSCULOSKELETAL: 5/5 muscle grading, ambulatory. Multiple amputations of digits, left foot. DERMATOLOGIC: Reveals an open wound, status post incision and drainage, puncture wound site, plantar right foot. The wound measures approximately 2 x 1 cm in diameter down to fascia, muscle, tissue. Granular tissue base with mild fibrosis noted. Mild serous drainage. No signs of infection. No underlying abscess. No remaining foreign body. No jero-marginal edema or cellulitis noted on exam. Mild tenderness on palpation even though neuropathic. DIAGNOSTIC DATA: X-rays taken on the June 22 on the right foot showed no osseous abnormalities or soft tissue abnormalities. An MRI report performed without contrast on June 23 shows an ulcer on the plantar aspect of the left foot anterior to the calcaneus. There is minor subcutaneous edema changes, but no underlying evidence of osteomyelitis or soft tissue abscess or gas. Both x-rays and MRI are unremarkable. ASSESSMENT: Status post puncture wound incision and drainage of right foot with secondary open wound. PLAN: The plan is with the nurse present in the room, the patient and I discussed her current diagnosis of an open ulceration on the right foot clean in nature. She is currently on IV antibiotics while in-house. Currently, on Zosyn every 6 hours and vancomycin IV antibiotic. Wound care in-house has been performed daily on the wound. The patient admits that she does walk with a postop shoe providing significant pressure to the open wound site on the right foot. At this time, I believe that the patient is okay to go home per Podiatry with oral antibiotics. The wound is clean and healthy. Images of the right foot did not confirm any underlying osteo or soft tissue abscess. The patient was dispensed with a CAM walking boot to offload and immobilize the right foot, decrease pressure to the open wound site to allow closure weightbearing. The patient is to wear walking boot at all times, weightbearing compliance stressed. Home wound care orders were written. The patient is to cleanse the area with antibacterial soap and normal saline solution daily. Apply HAYLEY, 2x2 gauze, Kerlix, and maintain with skin tape. The patient is to follow up with Dr. Edward outpatient in the [place] office in 2 to 3 days. Thank you for this consultation. If there are any questions or concerns, please call us at [phone]. Job ID: [id number]
[2019-06-25 15:12] VITALS: BP 102/69; TEMP 97.8
[2019-06-25] MEDS: NPH, Human Insulin Isophane 300 UNIT/3 ML VIAL SC SCH (15:29)
--- NOTE | 2019-06-25 16:03 | DIS ---
DATE OF ADMISSION: 06/22/2019 DATE OF DISCHARGE: 06/25/2019 DISCHARGE DISPOSITION: Home. FOLLOWUP: 1. Follow up with primary care physician at [facility]. 2. Follow up with Podiatry as scheduled. 3. Basic metabolic profile after 1 to 2 weeks is recommended. Primary care physician advised to follow. DISCHARGE MEDICATIONS: 1. Ciprofloxacin 500 mg twice daily for three weeks. 2. Doxycycline 100 mg twice daily for three weeks. 3. Bactrim 1 tablet b.i.d. for 3 weeks. 4. All other home medications were left unchanged. The patient was seen and examined on the day of discharge. Denies any new complaints. BRIEF HOSPITAL COURSE: The patient is a 49-year-old female with diabetes mellitus type 2, presented to the hospital with worsening right foot wound along with pain and drainage of 1 to 2 days duration. This happened after her puncture wound. She is currently on Bactrim. She was monitored on the medical floor. MRI of the lower extremity was negative for osteomyelitis. She was seen by Infectious Disease, Dr. Phillips, as well as Podiatry. The patient declined PICC line placement. She requested oral antibiotics. She will be discharged home on ciprofloxacin, Bactrim, and doxycycline per Infectious Disease recommendation for total of 3 weeks. She received wound care during this hospital stay. She appears stable for discharge. FINAL DIAGNOSES: 1. Sepsis secondary to diabetic foot infection. 2. Lactic acidosis. 3. Acute kidney injury on chronic kidney disease stage 3. 4. Morbid obesity with a BMI of 40.1. 5. Diabetic neuropathy. 6. Repeat lab work after a week is recommended, primary care physician advised to follow. Job ID: [id number]
== END 2019-06-25 15:33 | disposition home or self-care (01) | DRG 872 ==
LOC: ERS 13:51 → INTOOBSV 22:01 → OBSVTOIN 22:01 → T4-B 22:01
PROVIDERS: ADMIT Hospitalist; ATTEND Hospitalist
DX: A41.9 Sepsis, unspecified organism (principal); E87.2 Acidosis; Z68.41 Body mass index [BMI] 40.0-44.9, adult; L03.115 Cellulitis of right lower limb; N17.9 Acute kidney failure, unspecified; E11.628 Type 2 diabetes mellitus with other skin complications; E11.22 Type 2 diabetes mellitus with diabetic chronic kidney disease; I12.9 Hypertensive chronic kidney disease with stage 1 through stage 4 chronic kidney disease, or unspecified chronic kidney disease; N18.3 Chronic kidney disease, stage 3 (moderate); E66.01 Morbid (severe) obesity due to excess calories; E11.40 Type 2 diabetes mellitus with diabetic neuropathy, unspecified; F17.200 Nicotine dependence, unspecified, uncomplicated; L08.9 Local infection of the skin and subcutaneous tissue, unspecified; B95.62 Methicillin resistant Staphylococcus aureus infection as the cause of diseases classified elsewhere; F32.9 Major depressive disorder, single episode, unspecified; E11.621 Type 2 diabetes mellitus with foot ulcer; L97.519 Non-pressure chronic ulcer of other part of right foot with unspecified severity; Z91.041 Radiographic dye allergy status; Z79.4 Long term (current) use of insulin; Z71.6 Tobacco abuse counseling; Z89.422 Acquired absence of other left toe(s)
CPT/HCPCS: 36415; 36416; 80048; 80053; 80202; 83605; 84703; 85025; 86140; 87040; 87070; 87077; 87186; 87205; J1650; J1815; J1956; J2543; J3490; Q0162; Q0163

== ENCOUNTER 2019-07-29 15:03 | Inpatient (IN) | payer OTHER, SELFPAY ==
[2019-07-29] MEDS ORDERED: Heparin 1,000 UNITS/ML VIAL ONE (15:43)
--- NOTE | 2019-07-29 16:37 | RAD ---
RADIOGRAPH CHEST 1 VIEW: DATE: 07/29/2019 HISTORY: 49-year-old female for possible preoperative clearance FINDINGS: The visualized lung bragg are clear. The cardiomediastinal silhouette and hilar shadows are normal. The lateral costophrenic angles are sharp. The osseous structures appear normal. There is no pneumothorax. IMPRESSION: Negative.
--- NOTE | 2019-07-29 16:44 | RAD ---
Radiograph left foot 3 views: DATE: 07/29/2019 HISTORY: 49-year-old female with nonhealing wound of great toe with erythema and swelling. COMPARISON: 03/23/2019 FINDINGS: Again noted are the amputations at the distal metadiaphyses of the second and third metatarsal. Previously, there were severe permeative and osteolytic changes throughout the remaining portions of the third metatarsal diaphysis, with fragmentation. Since that time, there has been union of the pathologic fracture fragments, and increased bone mineralization. It still has a permeative appearanc e, but the bone is more dense than it was before. There is a new finding of diffuse soft tissue swelling of the great toe. No permeative lesion, osteol ytic lesion, or fracture involving the great toe. However, there is a new finding of slight widening of the medial aspect of the first interphalangeal joint space, and there is some soft tissue lucency which could represent gas, as seen on the oblique view, in that vicinity. No major pathology identified involving the rest of the bones. IMPRESSION: 1. Cellulitis of the left great toe. 2. Slight widening of the first interphalangeal joint space with questionable gas in adjacent soft ti ssues, raising the possibility of septic joint of the great toe. 3. Interval healing of pathologic fracture due to osteomyelitis, of the remaining portion of the thir d metatarsal shaft. Chronic osteomyelitis cannot be ruled in or ruled out involving this bone. 4. Old amputations at the distal shafts of the second and third metatarsals.
[2019-07-29 17:42] LABS: Hemoglobin 10.8 g/dL (12.0-16.0); Mean Corpuscular HGB CONC 32.8 g/dL (32.0-36.0); Mean Corpuscular Hemoglobin 26.8 pg (27.0-31.0); Mean Corpuscular Volume 81.8 fL (78.0-98.0); Mean Platelet Volume 9.3 fL (7.4-10.4); Platelet Count 292 thou/uL (130-400); RBC Distribution Width 13.5 % (11.5-14.5); Red Blood Cell (RBC) Count 4.04 mill/uL (4.20-5.40); White Blood Cell (WBC) Count 28.1 thou/uL (4.8-10.8)
[2019-07-29 17:54] LABS: ALT (SGPT) 11 U/L (8-55); AST (SGOT) 9 U/L (5-34); Albumin 3.3 g/dL (3.5-5.0); Alkaline Phosphatase 123 U/L (40-110); Anion Gap 15 mmol/L (10-20); BUN (Urea Nitrogen) 27 mg/dL (7.0-18.7); Bilirubin, Total 0.6 mg/dL (0.2-1.2); Calc. Creatinine Clearance 0 mL/min (70-130); Calcium 9.1 mg/dL (7.8-10.44); Carbon Dioxide 22 mmol/L (22-29); Chloride 99 mmol/L (98-107); Estimated GFR-MDRD 32; Globulin 4.3 g/dL (2.4-3.5); Glucose 364 mg/dL (70-105); Potassium 4.1 mmol/L (3.5-5.1); Protein, Total 7.6 g/dL (6.0-8.3); Sodium 132 mmol/L (136-145)
[2019-07-29 18:07] LABS: Band 9 % (5-11); Hypochromia SLIGHT = 6-15 cells (100X) (0-5/hpf); Lymphocytes 3 % (21-51); MDiff Complete? YES; Monocytes 6 % (0-10); Neutrophil 78 % (42-75); Platelet Morphology Comment Appears Adequate; Polychromasia SLIGHT = 2-3 cells (100X) (0-2/hpf); Reactive Lymphocytes 4 % (0-10)
[2019-07-29] MEDS ORDERED: Ondansetron PF 4 MG/2 ML Vial ONE (18:13)
[2019-07-29] MEDS ORDERED: Morphine 4 MG/ML VIAL ONE (18:13)
[2019-07-29] MEDS ORDERED: MEROPENEM 1 GM/50 ML 1 GM in Premix Bag 1 BAG IVPB SCH (18:15)
[2019-07-29] MEDS ORDERED: Ondansetron ODT 4 MG TAB PO PRN (20:13)
[2019-07-29] MEDS ORDERED: Senokot S 8.6-50 MG TAB PO PRN (20:13)
[2019-07-29] MEDS ORDERED: Guaifenesin DM 100-10/5 ML UDCUP PO PRN (20:13)
[2019-07-29] MEDS ORDERED: Acetaminophen 650 MG Suppository PR PRN (20:13)
[2019-07-29] MEDS ORDERED: Dextrose 5% in Water 1,000 ML IV PRN (20:33)
[2019-07-29] MEDS ORDERED: Dextrose 50% Abboject 50 ML SYRINGE SLOW IVP PRN (20:33)
[2019-07-29] MEDS ORDERED: HumaLOG 300 UNITS/3 ML VIAL SC PRN (20:33)
[2019-07-29] MEDS: Acetaminophen 325 MG TAB PO PRN (20:59)
[2019-07-29] MEDS: Famotidine 20 MG TAB PO SCH (20:59)
[2019-07-29] MEDS: Sodium Chloride 0.45% 1,000 ML IV SCH (20:59)
[2019-07-29] MEDS: Pregabalin 75 MG CAP PO SCH (21:00)
[2019-07-29] MEDS: HumuLIN 70/30 (300 UNITS/3 ML VIAL) SC SCH (21:00)
--- NOTE | 2019-07-29 21:17 | HP ---
PRIMARY CARE PHYSICIAN: Mildred in [facility]. CHIEF COMPLAINT: Fever, chills, and infected toe. HISTORY OF PRESENT ILLNESS: This is a 49-year-old female with a history of insulin-dependent diabetes mellitus and severe peripheral neuropathy with recurrent ulcers and infections on her feet, mostly from trauma from not wearing shoes around her house and stepping on things. She has had an ulceration. She was most recently seen for an infection on the bottom of her right foot, which has healed up with antibiotics at that time. She has an ulcer underneath her left great toe and it has been there for a couple months now, but it was not actively infected at that time. She has been putting Neosporin on it and a Band-Aid, but no further care beyond that and the ulcers she said seems to be getting bigger and then about 2 days ago, she started having fever and chills, got worse yesterday, and then today she noticed redness of her left great toe and streaking redness up the foot, so she came to the ER. In the ER, she was found to have cellulitis coming from the left great toe. She had an x-ray that showed a possible joint infection there as well and she had elevated white blood cell counts. The patient was given fluids, antibiotics, meropenem, vancomycin and antipyretics and pain medications, feeling much better now and she has been admitted to the hospital. Of note, patient has seen a clinical documentation improvement specialist, Dr. Edward and his partner saw the patient most recently in the hospital, but she also states that Dr. Vega is her clinical documentation improvement specialist as well. REVIEW OF SYSTEMS: CONSTITUTIONAL: See HPI. EYES: No double vision. She has had blurred vision, especially since she did inject some of her insulins today. ENT: No congestion, drainage, or sore throat. CARDIOVASCULAR: No chest pain. No palpitations or racing heart. PULMONARY: No coughing, wheezing, or shortness of breath. GASTROINTESTINAL: No abdominal pain. No nausea or vomiting. No diarrhea or constipation. GENITOURINARY: No dysuria or hematuria. MUSCULOSKELETAL: No new muscle aches or joint pains. She does have some chronic neck stiffness. SKIN: See HPI. NEUROLOGIC: She has loss of sensation in bilateral lower feet. She does not feel any pain from the infection at this time. PAST MEDICAL HISTORY: 1. Diabetes mellitus type 2, insulin dependent. 2. Diabetic peripheral neuropathy with multiple foot infections and previous amputations. 3. Vertigo. 4. Migraines. 5. Previous cyst on her kidney that burst. PAST SURGICAL HISTORY: 1. x3. 2. Infected cyst removal from left side of back. 3. Toe amputation x2. PAST PSYCHIATRIC HISTORY: Depression. SOCIAL HISTORY: The patient smokes 3 of the small cigars per day. No alcohol or illicit drug use. She is and her is present in the room with her. He is her medical power of patent prosecution attorney, Abundio Cortezb. She does state that she is a full code. FAMILY HISTORY: Mother with diabetes. Father with diabetes and coronary artery disease with a previous CABG. ALLERGIES: 1. ROCEPHIN. 2. LEVOFLOXACIN. 3. LACTOSE. CURRENT MEDICATIONS: 1. Insulin 70/30, 60 units in the morning and 40 units at night. 2. Lyrica 150 mg twice a day. PHYSICAL EXAMINATION: VITAL SIGNS: Blood pressure 112/60, pulse 99, respirations 22, O2 saturation 95% on room air, temperature up to 101.5, now down to 100.2 after medication. GENERAL: This is a well-developed obese female, in no acute distress. HEENT: Pupils equal, round, and reactive to light. Oropharynx is clear without lesions, erythema, or exudate. NECK: Supple. No lymphadenopathy. No thyroid nodules or enlargement. HEART: Regular rate and rhythm. No murmurs, rubs, or gallops. LUNGS: She does have some mild bibasilar crackles, but good air movement throughout. Otherwise, no increased work of breathing. ABDOMEN: Soft, obese, nontender to palpation. Normoactive bowel sounds. No hepatosplenomegaly or other masses. EXTREMITIES: No clubbing, cyanosis, or edema. The patient does have a large chewed out ulcerated area on the bottom of the proximal great toe on the left. There is surrounding redness. There is some evidence of fluid collection on the medial aspect of the toe. There is also streaking redness going up the top of the foot, almost to the ankle. There is some warmth here. No drainage of pus. SKIN: See above. The patient also has a healing sore on her right foot. NEUROLOGIC: The patient has loss of sensation in the lower extremities. Otherwise, she has intact strength and sensation elsewhere and no facial droop. PSYCHIATRIC: Alert and oriented x3. Normal mood and affect. LABORATORY DATA: White blood cell count 28,000 with 78% neutrophils, 9% bands, hemoglobin 10, hematocrit 33, platelet count 292. Complete metabolic panel is notable for a sodium of 132, a BUN of 27, a creatinine of 1.72 which is up from her typical around 1.1 to 1.3. Alkaline phosphatase 123, albumin 3.3, the rest is normal. Lactic acid was negative, 1.2. IMAGING DATA: I did review the chest x-ray along with the radiologist's report. It does show no evidence of acute cardiopulmonary process. Foot x-ray; I did review the films along with the radiologist's report; it is showing swelling and cellulitis of the great toe. There is a widening of the 1st interphalangeal joint with questionable gas and adjacent soft tissues raising the possibility of a septic joint of the great toe and the interval healing of the pathologic fracture due to osteomyelitis. Unable to say whether there is any persistent osteomyelitis at the areas of amputation. ASSESSMENT: 1. Sepsis. The patient has received 30 mL/kg of normal saline bolus in the emergency room, also with IV antibiotics. We will continue fluids and IV antibiotics and admit her to the medical floor. 2. Cellulitis and possible septic joint of the left great toe with a diabetic ulcer there. We will continue meropenem and vancomycin. We will have Pharmacy dose the vancomycin. We will consult Dr. Phillips and Podiatry to evaluate and see if the patient needs any surgical drainage or adjustment of antibiotics. 3. Acute on chronic renal failure secondary to sepsis, should improve with volume replacement. 4. Diabetes mellitus type 2, insulin dependent. We will resume the patient's insulin, put on fingerstick blood sugars q.a.c. and at bedtime and moderate insulin sliding scale. 5. Gastrointestinal prophylaxis. Put the patient on Pepcid twice a day. 6. Deep venous thrombosis prophylaxis. Put the patient on Lovenox subcu. 7. Code status. The patient is a full code. Her is her medical power of patent prosecution attorney should she be incapacitated. Job ID: [id number]
[2019-07-29 21:45] VITALS: BMI 40.6
[2019-07-30] MEDS: MEROPENEM 1 GM/50 ML 1 GM in Premix Bag 1 BAG IVPB SCH ×3 (01:10→18:59)
[2019-07-30] MEDS: Vancomycin 1.5 GRAM/300 ML BAG 1.5 GM in Premix Bag 1 BAG IVPB SCH (05:17)
[2019-07-30] MEDS: Acetaminophen 325 MG TAB PO PRN ×2 (05:20→09:04)
[2019-07-30] MEDS: Sodium Chloride 0.45% 1,000 ML IV SCH ×2 (05:24→20:13)
[2019-07-30 05:55] LABS: #Basophils 0.1 thou/uL (0.0-0.2); #Eosinphils 0.2 thou/uL (0.0-0.7); #Lymphocytes 5.1 thou/uL (1.20-3.40); #Monocytes 1.4 thou/uL (0.11-0.59); %Basophils 0.4 % (0.0-1.0); %Monocytes 7.2 % (0.0-10.0); %Neutrophils 65.4 % (42.0-75.0); Hemoglobin 8.5 g/dL (12.0-16.0); Mean Corpuscular HGB CONC 31.6 g/dL (32.0-36.0); Mean Corpuscular Hemoglobin 26.1 pg (27.0-31.0); Mean Corpuscular Volume 82.5 fL (78.0-98.0); Mean Platelet Volume 9.5 fL (7.4-10.4); Platelet Count 244 thou/uL (130-400); RBC Distribution Width 13.3 % (11.5-14.5); Red Blood Cell (RBC) Count 3.25 mill/uL (4.20-5.40); White Blood Cell (WBC) Count 19.8 thou/uL (4.8-10.8)
[2019-07-30 06:14] LABS: Anion Gap 10 mmol/L (10-20); BUN (Urea Nitrogen) 22 mg/dL (7.0-18.7); Calc. Creatinine Clearance 81 mL/min (70-130); Calcium 7.9 mg/dL (7.8-10.44); Carbon Dioxide 22 mmol/L (22-29); Chloride 107 mmol/L (98-107); Estimated GFR-MDRD 43; Glucose 94 mg/dL (70-105); Potassium 3.8 mmol/L (3.5-5.1); Sodium 135 mmol/L (136-145)
[2019-07-30] MEDS ORDERED: HumuLIN 70/30 (300 UNITS/3 ML VIAL) SC SCH (09:00)
[2019-07-30] MEDS: Enoxaparin Sodium 40 MG/0.4 ML SYRINGE SC SCH (09:03)
[2019-07-30] MEDS: Pregabalin 75 MG CAP PO SCH ×2 (09:04→20:11)
--- NOTE | 2019-07-30 09:39 | PDOC.HOSPP ---
- Subjective Encounter Date: 07/30/19 Encounter Time: 11:50 Subjective: Patient with pain in bilateral feet this AM. No fever overnight. Feeling bad all over but no other specific symptoms. Does have chronic diarrhea. - Objective Vital Signs & Weight: Vital Signs (12 hours) Temp Pulse Resp BP Pulse Ox 07/30/19 04:30 98.8 F 73 18 103/66 99 07/29/19 23:39 99.9 F H 69 17 101/54 L 93 L Weight Weight 215 lb I&O: 07/29/19 07/30/19 07/31/19 06:59 06:59 06:59 Intake Total 1150 Balance 1150 Result Diagrams: 07/30/19 05:22 07/30/19 05:22 Additional Labs: Accuchecks 07/30/19 07/29/19 07/29/19 05:18 22:57 20:59 POC Glucose 109 255 H 332 H Hospitalist ROS - Review of Systems Constitutional: reports: malaise. denies: fever Respiratory: denies: cough, shortness of breath Cardiovascular: denies: chest pain, palpitations, orthopnea Gastrointestinal: denies: nausea, vomiting, abdominal pain Genitourinary: denies: dysuria, hematuria Musculoskeletal: reports: foot pain Skin: reports: rash - Medication Medications: Active Medications Generic Name Dose Route Start Last Admin Trade Name Freq PRN Reason Stop Dose Admin Acetaminophen 650 mg 07/29/19 20:13 07/30/19 09:04 Tylenol PO 650 mg Q4H PRN Administration Headache/Fever/Mild Pain (1-3) Enoxaparin Sodium 40 mg 07/30/19 09:00 07/30/19 09:03 Lovenox SC 40 mg 0900 BGODAN Administration Famotidine 20 mg 07/29/19 21:00 07/29/19 20:59 Pepcid PO 20 mg QPM BOGDAN Administration Meropenem 1 gm/ Device 50 mls @ 100 mls/hr 07/30/19 02:00 07/30/19 01:10 IVPB 50 mls 0200,1000,1800 BOGDAN Administration Vancomycin HCl 1.5 gm/ Device 300 mls @ 200 mls/hr 07/30/19 06:00 07/30/19 05 :17 IVPB 300 mls 0600 BOGDAN Administration Sodium Chloride 1,000 mls @ 100 mls/hr 07/29/19 20:30 07/30/19 05:24 1/2 Normal Saline IV 1,000 mls .Q10H BOGDAN Administration Insulin Human Isoph/Insulin Regular 40 units 07/29/19 21:00 07/29/19 21:00 Humulin 70/30 SC 40 unit QPM BOGDAN Administration Insulin Human Isoph/Insulin Regular 60 units 07/30/19 09:00 07/30/19 09:05 Humulin 70/30 SC 60 unit QAM BOGDAN Administration Pregabalin 150 mg 07/29/19 21:00 07/30/19 09:04 Lyrica PO 150 mg BID BOGDAN Administration Sodium Chloride 10 ml 07/29/19 21:00 07/29/19 21:02 Flush - Normal Saline IVF 10 ml Q12HR BOGDAN Administration - Exam General Appearance: NAD, awake alert ENT: moist mucosa Heart: RRR, no murmur, no gallops, no rubs Respiratory: CTAB, no wheezes, no rales, no ronchi Gastrointestinal: soft, non-tender, non-distended, normal bowel sounds Extremities: no edema Extremities - other findings: wounds on bilateral feet with dressings in place Psychiatric: normal affect, normal behavior, A&O x 3 Hosp A/P (1) Cellulitis of left foot Code(s): L03.116 - CELLULITIS OF LEFT LOWER LIMB Status: Acute (2) Sepsis Code(s): A41.9 - SEPSIS, UNSPECIFIED ORGANISM Status: Acute (3) Acute on chronic renal failure Code(s): N17.9 - ACUTE KIDNEY FAILURE, UNSPECIFIED; N18.9 - CHRONIC KIDNEY DISEASE, UNSPECIFIED Status: Acute (4) DM2 (diabetes mellitus, type 2) Status: Chronic Qualifiers: Diabetes mellitus retirement insulin use: with retirement use Diabetes mellitus complication detail: with polyneuropathy - Plan Cellulitis, possible septic arthritis, and Sepsis - on meropenem and Vancomycin since 07/28/2019 - cultures pending - Podiatry consult - Dr. Phillips consult Diabetes Mellitus type 2 insulin dependent - on home insulin, SSI, blood sugars well controlled this AM DVT proph- Lovenox GI proph- Pepcid
[2019-07-30] MEDS ORDERED: HYDROcodone/Acetaminophen 5/325 mg Tablet PO PRN (12:12)
--- NOTE | 2019-07-30 14:08 | CON ---
DATE OF CONSULTATION: 07/30/2019 REASON FOR CONSULTATION: Left foot ulcer with inflammatory changes. HISTORY OF PRESENT ILLNESS: A 49-year-old whom I had seen recently in June when she presented with right foot abscess and a history of prior diabetes mellitus type 2, neuropathy, and prior amputations, and she sustained an injury to the right heel while walking barefooted. MRI did not show any evidence of osteomyelitis, so she was discharged on oral antimicrobial therapy. Cultures then showed Staph aureus, Klebsiella, Enterobacter, and Pseudomonas aeruginosa. Now, she was admitted with inflammatory changes in the left first toe associated with an ulcerated area at the bottom aspect of the proximal phalanx skin site, left first toe. She had some chills and some headaches. No shortness of breath. She has chronic vision impairment. No abdominal pain or diarrhea. No genitourinary symptoms. No bleeding. PAST MEDICAL HISTORY: 1. Type-2 diabetes. 2. Neuropathy. 3. Obesity. 4. Hyperlipidemia. 5. Puncture wounds in right and left feet with prior ray amputations of second and third toes. 6. Left kidney abscess with MSSA bacteremia in the past with resolution. 7. Right heel puncture wound with abscess, but not osteomyelitis. SOCIAL HISTORY: Never smoker. Lives in [place]. . ALLERGIES: IODINE. FAMILY HISTORY: Type-2 diabetes. CURRENT MEDICATIONS: 1. [place]. 2. Lovenox. 3. Pepcid. 4. Glucagon. 5. Insulin. 6. Meropenem. 7. Vancomycin. PHYSICAL EXAMINATION: VITAL SIGNS: T-max 100.2, BP 99/65, pulse 62, respirations 18. SKIN: Shows the right heel ulcerated area, which has quite small opening, but it probes all the way to 4 cm about the same as I did last time around there. There was some purulent exudate expressed initially and then it turned serous. The left foot with first toe inflammatory changes, blistering with purulence in the medial aspect and the bottom irregular ulcerated area measuring about 1 x 0.5 cm with a reddish base. A few areas of yellow tissue, but no undermining or exposed bone identified. No lymphadenopathy. HEENT: Ocular movements conjugate. Oral cavity is not remarkable. NECK: Supple. LUNGS: Symmetric. Clear breath sounds. HEART: S1 and S2, regular rate. No S3 or S4. ABDOMEN: Soft. Not distended or tender. No ascites. No bladder distention. MUSCULOSKELETAL: No other joint inflammatory process. EXTREMITIES: Pulses are 1+ in popliteals and dorsalis pedis. Cap refill normal. LABORATORY AND DIAGNOSTIC DATA: Sodium 135; creatinine 1.33, which is improved from admission, her baseline is 1.07 in June last year. Transaminases and bilirubin are normal, alkaline phosphatase 123, albumin 3.3, total protein 7.6. Two sets of blood cultures thus far no growth. Foot x-ray; cellulitis and widening of the first IPJ space, possible gas in soft tissues. ASSESSMENT AND PLAN: Type-2 diabetes, neuropathy, and recurrent complications in right and left feet. The right heel area is still representing a concern for osteomyelitis and we will have to re-evaluate the MRI about 1 month after the last evaluation in view of the persistence of the drainage and the deep penetration of the ulcer, which has not demonstrated any improvement. The left foot will require an MRI as well and there is a high risk of amputation of the first toe in view of the aggressive infectious process with blistering and apparent gas in soft tissues. Continue current regimen. Job ID: [id number]
[2019-07-30] MEDS ORDERED: Magnevist 469MG/ML 20 ML VIAL ONE ×2 (14:45)
--- NOTE | 2019-07-30 19:51 | MRI ---
MRI OF THE RIGHT FOOT WITH AND WITHOUT IV CONTRAST: 07/30/19 INDICATION: History of persistent deep right heel ulcer with purulent drainage. TECHNIQUE: Multiplanar and multisequence MR images were obtained of the right hindfoot and midfoot with and with out IV contrast utilizing 10 mL of Multihance. Comparisons are made with the prior exam dated 06/05/19 and 06/23/19. FINDINGS: Puncture wound along the plantar aspect of the midfoot/hindfoot junction just subjacent to the anteri or calcaneus persists from the MR examinations performed previously. No large drainable fluid collec tion is evident. There is some surrounding cellulitis of the plantar aspect of the foot. There is no overt signal abnormality or abnormal enhancement within the osseous structures to suggest the presenc e of osteomyelitis. The visualized intrinsic foot musculature demonstrates some mild diffuse increase d T2 signal intensity that appears similar to the comparison examination, likely related to denervat ion. IMPRESSION: Puncture wound along the plantar aspect of the hindfoot/midfoot junction with surrounding cellulitis. No drainable fluid collection or osteomyelitis demonstrated. POS: JEFF
[2019-07-30] MEDS: Famotidine 20 MG TAB PO SCH (20:10)
[2019-07-30] MEDS: HYDROcodone/Acetaminophen 5/325 mg Tablet PO PRN ×2 (20:10→23:57)
[2019-07-30] MEDS: HumuLIN 70/30 (300 UNITS/3 ML VIAL) SC SCH (20:13)
--- NOTE | 2019-07-30 20:21 | MRI ---
MR OF THE LEFT FOOT WITH AND WITHOUT IV CONTRAST: 07/30/19 INDICATION: History of osteomyelitis versus septic arthritis of the hallux. TECHNIQUE: Multiplanar and multisequence MR images were obtained of the left foot with and without contrast util izing 10 mL of Multihance. Comparisons are made with the prior exam dated 03/23/19 as well as radiogra phs of the left foot dating 07/29/18. FINDINGS: There is persistent osteomyelitis involving the partial ray amputations of the second and third digit as well as the fourth digit metatarsal shaft and base. There is abnormal signal intensity and enhanc ement involving the proximal shaft and base of the fifth digit also consistent with changes of osteom yelitis. There is abnormal signal intensity and enhancement involving the distal phalanx of the great toe suspicious for changes of osteomyelitis. There are multiple pockets of periosseous abscess forma tion surrounding the distal phalanx and middle phalanx of the great toe extending into the great toe web interspace. This communicates with a plantar medial based ulceration on the plantar aspect of the distal toe. There is some mild edema enhancement involving portions of the cuboid suspicious for nigel nges of early osteomyelitis. There is extensive cellulitis seen circumferentially about the forefoot and midfoot. There is diffuse denervation changes involving the intrinsic foot musculature. IMPRESSION: 1. Plantar based ulceration involving the distal phalanx of the great toe with surrounding perio sseous abscess involving the distal phalanx and middle phalanx of the great toe and extending into th e great toe web interspace. There is osteomyelitis involving the great toe distal phalanx, second di git metatarsal ray amputation, third digit ray amputation, fourth digit metatarsal shaft and proximal fifth digit metatarsal shaft. There is new abnormal signal intensity and enhancement involving the d istal aspect of the cuboid suspicious for changes of early osteomyelitis. 2. Extensive cellulitis of the left forefoot and midfoot. POS: BH
[2019-07-31] MEDS: MEROPENEM 1 GM/50 ML 1 GM in Premix Bag 1 BAG IVPB SCH ×3 (01:27→17:25)
[2019-07-31] MEDS: Acetaminophen 325 MG TAB PO PRN (05:41)
[2019-07-31] MEDS: Vancomycin 1.5 GRAM/300 ML BAG 1.5 GM in Premix Bag 1 BAG IVPB SCH (05:42)
[2019-07-31] MEDS: Sodium Chloride 0.45% 1,000 ML IV SCH ×2 (05:54→10:39)
[2019-07-31 06:02] LABS: #Basophils 0.1 thou/uL (0.0-0.2); #Eosinphils 0.2 thou/uL (0.0-0.7); #Lymphocytes 3.9 thou/uL (1.20-3.40); #Neutrophils 12.4 thou/uL (1.40-6.50); %Basophils 0.5 % (0.0-1.0); %Eosinophils 1.3 % (0.0-10.0); %Lymphocytes 22.2 % (21.0-51.0); %Monocytes 5.8 % (0.0-10.0); %Neutrophils 70.2 % (42.0-75.0); Hemoglobin 9.2 g/dL (12.0-16.0); Mean Corpuscular HGB CONC 32.4 g/dL (32.0-36.0); Mean Corpuscular Volume 83.2 fL (78.0-98.0); Mean Platelet Volume 9.6 fL (7.4-10.4); Platelet Count 290 thou/uL (130-400); RBC Distribution Width 13.5 % (11.5-14.5); Red Blood Cell (RBC) Count 3.42 mill/uL (4.20-5.40); White Blood Cell (WBC) Count 17.6 thou/uL (4.8-10.8)
[2019-07-31 06:18] LABS: Anion Gap 15 mmol/L (10-20); BUN (Urea Nitrogen) 17 mg/dL (7.0-18.7); Calc. Creatinine Clearance 109 mL/min (70-130); Calcium 8.7 mg/dL (7.8-10.44); Carbon Dioxide 19 mmol/L (22-29); Chloride 108 mmol/L (98-107); Estimated GFR-MDRD 61; Potassium 4.1 mmol/L (3.5-5.1); Sodium 138 mmol/L (136-145)
[2019-07-31 06:24] LABS: Glucose 50 mg/dL (70-105)
[2019-07-31] MEDS: Enoxaparin Sodium 40 MG/0.4 ML SYRINGE SC SCH (07:07)
[2019-07-31] MEDS: Pregabalin 75 MG CAP PO SCH ×2 (08:18→20:24)
[2019-07-31] MEDS: NPH, Human Insulin Isophane 300 UNIT/3 ML VIAL SC SCH ×2 (09:44→20:25)
[2019-07-31] MEDS ORDERED: ePHEDrine/0.9% NaCl/PF SYRINGE 50 mg/10 ml ONE (10:11)
[2019-07-31] MEDS ORDERED: Ondansetron PF 4 MG/2 ML Vial ONE (10:11)
[2019-07-31] MEDS ORDERED: Metoclopramide HCl 10 MG/2 ML VIAL ONE (10:11)
[2019-07-31] MEDS ORDERED: Lidocaine 1% PF 5 ML VIAL ONE (10:11)
[2019-07-31] MEDS ORDERED: PROPOFOL 200 MG/20 ML VIAL ONE (10:11)
[2019-07-31] MEDS ORDERED: Ketorolac Tromethamine 30 MG/ML VIAL ONE (10:11)
[2019-07-31] MEDS ORDERED: Fentanyl 100 MCG/2 ML VIAL ONE ×2 (12:18→13:56)
[2019-07-31] MEDS ORDERED: Bacitracin Zinc Ointment 30 gm TUBE ONE (12:19)
[2019-07-31] MEDS ORDERED: traMADol HCl 50 MG TAB PO PRN (12:33)
[2019-07-31] MEDS ORDERED: Acetaminophen 500 MG TAB PO PRN (12:33)
--- NOTE | 2019-07-31 12:41 | CON ---
DATE OF CONSULTATION: HISTORY OF PRESENT ILLNESS: Jeanne Olson is a 49-year-old female who is well known to me. She is morbidly obese, 40 BMI, 5 feet 1 inch, 215 pounds with diabetes mellitus. She is on insulin subcu at home 60 units in a.m. and 40 in p.m., Lyrica, and meclizine. She is in the hospital and had been started on vancomycin and meropenem. She had seen by Dr. Phillips. She has diet problems with her feet, both right and left. She had a puncture wound to her proximal plantar arch near the heel on the right and this has been resulted in the wound that has been chronic. On evaluation, this wound is described above, is in the proximal arch and extends 4.5 to 5 cm laterally and when probed, it is right at the skin laterally below the lateral malleolus. It extends 3.5 cm medially up into the navicular and cuboid bones. She has had plain foot x-rays and MRIs of both feet 07/30/2019. MRI of the right foot reveals a deep wound without evident osteo or abscess. The patient has had prior amputation of left second and third toes and metatarsals and these wounds have healed. She has had a plantar ulcer over a left great toe. She has a diabetic infection with cellulitis extending up to the distal foot. She has an open wound in the plantar left foot extending to the bone on probing. This is extensive with necrotic tissue and foul smell and cellulitis. This is limited to the left great toe and metatarsal area and does not seem to involve clinically the second, third, fourth, and fifth toes. Cultures reveal Staphylococcus, Streptococcus, and Chanel. MRI of the left foot reveals osteomyelitis of the left great toe distal phalanx, extensive wound and abscess to the left great toe with cellulitis. It suggests osteomyelitis as well as second metatarsal, third metatarsal, fourth metatarsal shaft, and proximal fifth metatarsal shaft. Cuboid bone is suspicious for changes of early osteomyelitis. Clinically, there is no evidence of infection involving the second, third, fourth, and fifth metatarsals are cuboid, left foot. She has palpable pedal pulses. Plan at this time is debridement and washout of the right proximal foot puncture wound, open in the lateral right foot or the underlying abscess extends to facilitate drainage wound care and to minimize plantar wounds. In addition, we will plan amputation of left great toe, hopefully through the proximal phalanx and wound VAC application. Further amputations are indicated based on operative findings, although clinically I would suspect that we will not do any procedures of the left second, third, fourth, and fifth toes and we will treat these with antibiotics. Dr. Phillisp has already seen her and she has a PICC line. ALLERGIES: LACTOSE, LEVAQUIN, AND CEFTRIAXONE. SOCIAL HISTORY: The patient lives with family. Tobacco abuse in the past, none currently. Alcohol, rarely. PAST MEDICAL HISTORY: Diabetes mellitus type 2, morbid obesity, metabolic syndrome, diabetic neuropathy, nephropathy, depression, migraines, open wound left foot, and open wound right foot. PAST SURGICAL HISTORY: Previous amputation of the left second toes and third toes and metatarsals, , cyst removal from the left shoulder, previous debridement of the right foot by Podiatry, Dr. Evaristo Javier followed by Dr. Jenkins, Nephrology. PHYSICAL EXAMINATION: VITAL SIGNS: Height 5 feet 1 inch, 215 pounds, 40 BMI. Temperature 98.1, pulse 71, and blood pressure 94/63. HEAD, EYES, EARS, NOSE, AND THROAT: Unremarkable. LUNGS: Clear to auscultation. CARDIAC: Regular rate and rhythm without murmur or gallop. ABDOMEN: Soft, nontender, and obese. EXTREMITIES: Palpable femoral, popliteal, pedal pulses. LABORATORY DATA: White count 17, hemoglobin 9.2. BUN and creatinine are normal. ASSESSMENT AND PLAN: We will plan incision, drainage, debridement and washout of right foot. We will plan amputation of left great toe, wound VAC application, further procedure in the left foot, pending operative findings, but more than likely the radiological changes seen on MRI of left second and third toes, and fourth toes and fifth toe metatarsals will be treated with intravenous antibiotics. The left second and third toes were amputated on February 2019. Job ID: [id number]
[2019-07-31] MEDS ORDERED: Ondansetron HCl/PF 4 MG/2 ML Vial IVP PRN (12:56)
[2019-07-31] MEDS ORDERED: Promethazine HCl 25 MG/ML VIAL SLOW IVP PRN (12:56)
[2019-07-31] MEDS ORDERED: Meperidine HCl/PF 25 MG/ML VIAL SLOW IVP PRN (12:56)
[2019-07-31] MEDS ORDERED: HYDROmorphone 2 MG/ML VIAL SLOW IVP PRN (12:56)
--- NOTE | 2019-07-31 16:55 | CON ---
DATE OF CONSULTATION: 07/30/2019 TIME SEEN: The patient was seen at 12:30 in the afternoon. SUBJECTIVE FINDINGS: The patient was admitted on July 29. The patient is resting comfortably in bed, using her phone. The patient has been seen previously as a consult for a puncture wound to the right foot, that is still not healed. She states she came to the hospital due to pain and swelling of the left foot starting at the great toe. There has been a wound there on the bottom of the great toe for several months. The pain, redness, and swelling started yesterday. The patient has previously had left second and third digital amputation with partial metatarsals on the left. The patient is unclear how her blood sugar control is at home. The patient has significant neuropathy. OBJECTIVE FINDINGS: The patient has good pulses palpable, 2/4 bilaterally. The patient has significantly decreased sensation and sharp touch to her left foot. The patient has well-healed second and third amputations of left digits. On the right plantar wound, no pus is expressed; however, the wound probes deep, does not appear to probe to bone. There is some undermining. There is some serosanguineous drainage. No signs of cellulitis here. On the left, the wound on the plantar sulcus of the hallux tracks proximally underneath the first metatarsophalangeal joint. It appears to enter the hallux interphalangeal joint. The area is dry and necrotic in appearance. ASSESSMENT AND PLAN: Dr. Phillips is on board with care. He has ordered MRI. I evaluated the MRI late this evening, and with the MRI report, the patient has osteomyelitis of the hallux, deep space infection, and an abscess in the first web space as well as around the hallux. Also, noted is osteomyelitis of multiple metatarsals. The patient is going to need a transmetatarsal amputation or with the changes at the cuboid, possible need for a more proximal surgical procedure. This is a procedure I am uncomfortable with and do not perform; therefore, I have consulted General Surgery or Orthopedic Surgery, who can evaluate and treat this better than I. Job ID: [id number]
[2019-07-31] MEDS: traMADol HCl 50 MG TAB PO PRN (17:32)
[2019-07-31] MEDS: HumaLOG 300 UNITS/3 ML VIAL SC PRN (17:34)
[2019-07-31] MEDS: Loperamide HCl 2 MG CAP PO PRN (18:25)
--- NOTE | 2019-07-31 19:42 | PDOC.HOSPP ---
- Subjective Encounter Date: 07/31/19 Encounter Time: 17:00 Subjective: Patient seen and examined for Sepsis/diabetic foot infection. Pain controlled. No new complaints. No overnight events - Objective Vital Signs & Weight: Vital Signs (12 hours) Temp Pulse Resp BP Pulse Ox 07/31/19 17:11 98.1 F 73 18 96/61 100 07/31/19 08:26 68 94/63 07/31/19 08:05 98.1 F 71 14 89/53 L 98 Weight Admit Weight 215 lb Weight 215 lb I&O: 07/30/19 07/31/19 08/01/19 06:59 06:59 06:59 Intake Total 1150 1750 Balance 1150 1750 Result Diagrams: 07/31/19 05:15 07/31/19 05:15 Additional Labs: Accuchecks 07/31/19 07/31/19 07/31/19 08:26 05:50 04:20 POC Glucose 107 82 64 L 07/30/19 20:06 POC Glucose 113 H Microbiology 07/29/19 18:06 Central Line - Left Brachiocephalic vein Blood Culture - Preliminary NO GROWTH AT 48 HOURS 07/29/19 17:48 Other source- see comments - Pending Bacterial Culture - Preliminary Staphylococcus aureus Streptococcus agalactiae Gp. B Presumptive Chanel albicans 07/29/19 17:24 Central Line - Left Brachiocephalic vein Blood Culture - Preliminary NO GROWTH AT 48 HOURS Radiology Reviewed by me: Yes (MRI - reviewed) Hospitalist ROS - Review of Systems Respiratory: denies: cough, dry, shortness of breath, hemoptysis, SOB with excertion, pleuritic pain, sputum, wheezing, other Cardiovascular: denies: chest pain, palpitations, orthopnea, paroxysmal noc. dyspnea, edema, light headedness, other - Medication Medications: Active Medications Generic Name Dose Route Start Last Admin Trade Name Freq PRN Reason Stop Dose Admin Hydrocodone Bitart/Acetaminophen 1 tab 07/30/19 12:12 07/30/19 16:47 [place] 5/325 PO 1 tab Q4H PRN Administration Moderate Pain (4-6) Hydrocodone Bitart/Acetaminophen 2 tab 07/30/19 12:12 07/30/19 23:57 [place] 5/325 PO 2 tab Q4H PRN Administration Severe Pain (7-10) Enoxaparin Sodium 40 mg 07/30/19 09:00 07/31/19 07:07 Lovenox SC Not Given 0900 BOGDAN Famotidine 20 mg 07/29/19 21:00 07/30/19 20:10 Pepcid PO 20 mg QPM [facility]OG[facility] Administration Meropenem 1 gm/ Device 50 mls @ 100 mls/hr 07/30/19 02:00 07/31/19 17:25 IVPB 50 mls 0200,1000,1800 BOG[facility]AN Administration Vancomycin HCl 1.5 gm/ Device 300 mls @ 200 mls/hr 07/30/19 06:00 07/31/19 05 :42 IVPB 300 mls 0600 BOGDAN Administration Sodium Chloride 1,000 mls @ 100 mls/hr 07/29/19 20:30 07/31/19 10:39 1/2 Normal Saline IV Not Given .Q10H [facility] Insulin Human Lispro 0 units 07/29/19 20:33 07/31/19 17:34 Humalog SC 2 unit .MODERATE SLIDING SC PRN Administration Moderate Correctional Scale Insulin Human NPH 15 unit 07/31/19 09:00 07/31/19 09:44 Humulin N SC Not Given BID [facility] Loperamide HCl 2 mg 07/31/19 18:08 07/31/19 18:25 Imodium PO 2 mg PRN PRN Administration Diarrhea/Loose Stools Ondansetron HCl 4 mg 07/29/19 20:13 07/31/19 05:43 Zofran Odt PO 4 mg Q6H PRN Administration Nausea/Vomiting Pregabalin 150 mg 07/29/19 21:00 07/31/19 08:18 Lyrica PO 150 mg BID [facility]OG[facility]AN Administration Sodium Chloride 10 ml 07/29/19 21:00 07/31/19 09:44 Flush - Normal Saline IVF Not Given Q12HR [facility] Tramadol HCl 100 mg 07/31/19 12:33 07/31/19 17:32 Ultram PO 100 mg Q6H PRN Administration Severe Pain (7-10) - Exam General Appearance: NAD Heart: RRR, no gallops, no rubs, normal peripheral pulses Respiratory: no wheezes, no rales, no ronchi, normal chest expansion Gastrointestinal: non-tender, non-distended, normal bowel sounds, no rigidity Extremities: no cyanosis Extremities - other findings: wound dressing/vac + Neurological: no new deficit Psychiatric: normal affect, A&O x 3 Hosp A/P - Plan Sepsis due to diabetic foot infection with Osteomyelitis DM2 with hypoglycemia 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
--- NOTE | 2019-07-31 20:03 | OP ---
DATE OF PROCEDURE: 07/31/2019 PREOPERATIVE DIAGNOSES: Severe diabetic foot infections with diabetes and osteomyelitis of left great toe and severe cellulitis and infection extending to the metatarsal. Radiologically, MRI suggests osteomyelitis of left second and third metatarsals and also fourth and fifth metatarsals, but clinically, there is no infection. Neuropathic ulcer, plantar right foot proximal arch extending medially and laterally with a large underlying cavity and infection extending probably to the small ankle bones, cuneiform, navicular, and cuboid. POSTOPERATIVE DIAGNOSES: Severe diabetic foot infections with diabetes and osteomyelitis of left great toe and severe cellulitis and infection extending to the metatarsal. Radiologically, MRI suggests osteomyelitis of left second and third metatarsals and also fourth and fifth metatarsals, but clinically, there is no infection. Neuropathic ulcer, plantar right foot proximal arch extending medially and laterally with a large underlying cavity and infection extending probably to the small ankle bones, cuneiform, navicular, and cuboid. PROCEDURES PERFORMED: Amputation of left great toe metatarsal wound left open for secondary intention, pulse irrigation. Wound Care placed a wound VAC. Right foot incision and drainage, debridement of plantar ulceration, making a medial proximal left foot opening and lateral proximal right foot opening below the medial and lateral malleoli respectfully, and Wound Care placed a wound VAC after pulse irrigation. ANESTHESIA: General. FINDINGS: The patient has a severe deep infection in both feet. She has a risk for limb loss, especially on the right side. Long-term antibiotic treatment needed for the radiological findings of the left foot without clinical evidence of infection of the third, third, fourth, and fifth metatarsals and cuneiforms. DESCRIPTION OF PROCEDURE: The patient was taken to the operating room, where under LMA anesthesia, both lower extremities were prepared with ChloraPrep and draped in routine fashion. Left great toe was amputated. Initially, attempting to salvage the proximal phalanx, but required more proximal amputation due to the underlying abscess, infection, and gangrenous tissue. Incision was carried down for amputation of the left great toe and metatarsal. Resected the metatarsal with a bone cutter, proximally with a rongeur. We gained good hemostasis with cautery, debriding connective tissue. Pulse irrigation was performed. Plantar ulceration, neuropathic from a previous penetrating wound, proximal arch right foot explored and extended as appreciated preoperatively to the medial left foot and lateral right foot making counter incisions respectively in these areas to facilitate wound care. Wound, pulse irrigated. Wound Care arrived to place a wound VAC. The patient tolerated the procedure well. Job ID: [id number]
[2019-07-31] MEDS: Famotidine 20 MG TAB PO SCH (20:24)
[2019-07-31] MEDS: Saccharomyces boulardii 250 MG CAP PO SCH (20:24)
[2019-07-31] MEDS: HYDROcodone/Acetaminophen 5/325 mg Tablet PO PRN (20:34)
[2019-08-01] MEDS: Sodium Chloride 0.45% 1,000 ML IV SCH ×4 (00:23→17:36)
[2019-08-01] MEDS: MEROPENEM 1 GM/50 ML 1 GM in Premix Bag 1 BAG IVPB SCH ×3 (01:38→17:27)
[2019-08-01] MEDS: HYDROcodone/Acetaminophen 5/325 mg Tablet PO PRN ×5 (01:42→21:06)
[2019-08-01] MEDS: Loperamide HCl 2 MG CAP PO PRN (01:48)
[2019-08-01 06:00] LABS: #Eosinphils 0.4 thou/uL (0.0-0.7); #Lymphocytes 3.9 thou/uL (1.20-3.40); #Monocytes 0.9 thou/uL (0.11-0.59); #Neutrophils 6.9 thou/uL (1.40-6.50); %Basophils 0.4 % (0.0-1.0); %Lymphocytes 32.3 % (21.0-51.0); %Monocytes 7.1 % (0.0-10.0); %Neutrophils 57.3 % (42.0-75.0); Hemoglobin 8.2 g/dL (12.0-16.0); Mean Corpuscular HGB CONC 31.9 g/dL (32.0-36.0); Mean Corpuscular Hemoglobin 26.5 pg (27.0-31.0); Mean Corpuscular Volume 83.3 fL (78.0-98.0); Mean Platelet Volume 9.2 fL (7.4-10.4); Platelet Count 248 thou/uL (130-400); RBC Distribution Width 13.4 % (11.5-14.5); Red Blood Cell (RBC) Count 3.08 mill/uL (4.20-5.40); White Blood Cell (WBC) Count 12.1 thou/uL (4.8-10.8)
[2019-08-01 06:19] LABS: Vancomycin, Trough 13.4 ug/mL
[2019-08-01] MEDS: Vancomycin 1.5 GRAM/300 ML BAG 1.5 GM in Premix Bag 1 BAG IVPB SCH (06:23)
[2019-08-01 06:33] LABS: Anion Gap 13 mmol/L (10-20); BUN (Urea Nitrogen) 16 mg/dL (7.0-18.7); Calc. Creatinine Clearance 120 mL/min (70-130); Calcium 8.4 mg/dL (7.8-10.44); Carbon Dioxide 19 mmol/L (22-29); Chloride 108 mmol/L (98-107); Estimated GFR-MDRD 68; Glucose 190 mg/dL (70-105); Potassium 4.2 mmol/L (3.5-5.1); Sodium 136 mmol/L (136-145)
[2019-08-01] MEDS: HumaLOG 300 UNITS/3 ML VIAL SC PRN ×2 (06:49→17:28)
[2019-08-01] MEDS: Pregabalin 75 MG CAP PO SCH ×2 (10:28→21:05)
[2019-08-01] MEDS: Famotidine 20 MG TAB PO SCH ×2 (10:28→21:06)
[2019-08-01] MEDS: Enoxaparin Sodium 40 MG/0.4 ML SYRINGE SC SCH (10:29)
[2019-08-01] MEDS: NPH, Human Insulin Isophane 300 UNIT/3 ML VIAL SC SCH ×2 (10:30→21:06)
--- NOTE | 2019-08-01 13:29 | PDOC.HOSPP ---
- Subjective Subjective: Had BM, pain c'd w.. norco and tramadol PRN. wound vac - b/l. - Objective Vital Signs & Weight: Vital Signs (12 hours) Temp Pulse Resp BP BP Pulse Ox 08/01/19 11:26 98.1 F 79 20 133/85 99 08/01/19 08:00 98.2 F 75 20 99/65 99 08/01/19 04:33 98.8 F 73 90/54 L 98 Weight Admit Weight 215 lb Weight 215 lb I&O: 07/31/19 08/01/19 08/02/19 06:59 06:59 06:59 Intake Total 1750 Balance 1750 Result Diagrams: 08/01/19 05:27 08/01/19 05:27 Additional Labs: Accuchecks 08/01/19 08/01/19 07/31/19 11:26 04:28 20:19 POC Glucose 135 H 206 H 174 H 07/31/19 16:39 POC Glucose 196 H Hospitalist ROS - Medication Medications: Active Medications Generic Name Dose Route Start Last Admin Trade Name Freq PRN Reason Stop Dose Admin Hydrocodone Bitart/Acetaminophen 1 tab 07/30/19 12:12 07/30/19 16:47 [place] 5/325 PO 1 tab Q4H PRN Administration Moderate Pain (4-6) Hydrocodone Bitart/Acetaminophen 2 tab 07/30/19 12:12 08/01/19 10:27 [place] 5/325 PO 2 tab Q4H PRN Administration Severe Pain (7-10) Enoxaparin Sodium 40 mg 07/30/19 09:00 08/01/19 10:29 Lovenox SC 40 mg 0900 BOGDAN Administration Famotidine 20 mg 08/01/19 09:00 08/01/19 10:28 Pepcid PO 20 mg BID [facility] Administration Meropenem 1 gm/ Device 50 mls @ 100 mls/hr 07/30/19 02:00 08/01/19 10:29 IVPB 50 mls 0200,1000,1800 BOGDAN Administration Vancomycin HCl 1.5 gm/ Device 300 mls @ 200 mls/hr 07/30/19 06:00 08/01/19 06 :23 IVPB 300 mls 0600 BOGDAN Administration Sodium Chloride 1,000 mls @ 100 mls/hr 07/29/19 20:30 08/01/19 08:46 1/2 Normal Saline IV Not Given .Q10H [facility] Insulin Human Lispro 0 units 07/29/19 20:33 08/01/19 06:49 Humalog SC 4 unit .MODERATE SLIDING SC PRN Administration Moderate Correctional Scale Insulin Human NPH 15 unit 07/31/19 09:00 08/01/19 10:30 Humulin N SC Not Given BID [facility] Loperamide HCl 2 mg 07/31/19 18:08 08/01/19 01:48 Imodium PO 2 mg PRN PRN Administration Diarrhea/Loose Stools Ondansetron HCl 4 mg 07/29/19 20:13 07/31/19 05:43 Zofran Odt PO 4 mg Q6H PRN Administration Nausea/Vomiting Pregabalin 150 mg 07/29/19 21:00 08/01/19 10:28 Lyrica PO 150 mg BID [facility] Administration Saccharomyces Boulardii 250 mg 07/31/19 21:00 07/31/19 20:24 Florastor PO 250 mg HS [facility] Administration Sodium Chloride 10 ml 07/29/19 21:00 08/01/19 10:30 Flush - Normal Saline IVF Not Given Q12HR [facility] Tramadol HCl 100 mg 07/31/19 12:33 07/31/19 17:32 Ultram PO 100 mg Q6H PRN Administration Severe Pain (7-10) - Exam General Appearance: NAD, awake alert, ill appearing Heart: RRR, no murmur Respiratory: CTAB Gastrointestinal: soft, non-distended, normal bowel sounds Extremities - other findings: b/w wound vac on LE Neurological: no focal deficits Hosp A/P - Plan old records reviewed/req Sepsis due to diabetic foot infection with Osteomyelitis - s/p left metatarsal amputation - on - s/p R foot I & D - - on wound vac b/l - Cont Atbx - Vancomycin/Meropenem -follow Vancomycin trough - ID/Surg/Positraty input appreciated DM2 with hypoglycemia Diabetic neuropathy -Hold 70/30 - Started Lantus at low dose - Cont sliding scale -BG relatively ok - goal < 180 -fw on a1c STEPH on CKD 2 -cr at 0.8--back to baseline Morbid obesity BMI 40.6 HTN HLD
[2019-08-01] MEDS: traMADol HCl 50 MG TAB PO PRN (13:38)
[2019-08-01 14:26] LABS: Hemoglobin A1c 10.7 % (4.0-6.0)
[2019-08-01] MEDS: Saccharomyces boulardii 250 MG CAP PO SCH (21:05)
[2019-08-02] MEDS: MEROPENEM 1 GM/50 ML 1 GM in Premix Bag 1 BAG IVPB SCH ×3 (01:53→18:21)
[2019-08-02] MEDS: Sodium Chloride 0.45% 1,000 ML IV SCH ×2 (01:54→15:19)
[2019-08-02] MEDS: HYDROcodone/Acetaminophen 5/325 mg Tablet PO PRN ×4 (01:56→18:20)
[2019-08-02 06:16] LABS: #Eosinphils 0.4 thou/uL (0.0-0.7); #Lymphocytes 3.2 thou/uL (1.20-3.40); #Monocytes 0.8 thou/uL (0.11-0.59); #Neutrophils 5.4 thou/uL (1.40-6.50); %Basophils 0.3 % (0.0-1.0); %Eosinophils 4.3 % (0.0-10.0); %Lymphocytes 32.5 % (21.0-51.0); %Monocytes 7.6 % (0.0-10.0); %Neutrophils 55.3 % (42.0-75.0); Hemoglobin 9.2 g/dL (12.0-16.0); Mean Corpuscular HGB CONC 32.5 g/dL (32.0-36.0); Mean Corpuscular Hemoglobin 26.7 pg (27.0-31.0); Mean Corpuscular Volume 82.1 fL (78.0-98.0); Mean Platelet Volume 8.8 fL (7.4-10.4); Platelet Count 287 thou/uL (130-400); RBC Distribution Width 13.4 % (11.5-14.5); Red Blood Cell (RBC) Count 3.46 mill/uL (4.20-5.40); White Blood Cell (WBC) Count 9.8 thou/uL (4.8-10.8)
[2019-08-02] MEDS: Vancomycin 1.5 GRAM/300 ML BAG 1.5 GM in Premix Bag 1 BAG IVPB SCH (06:19)
[2019-08-02 06:25] LABS: Anion Gap 12 mmol/L (10-20); BUN (Urea Nitrogen) 13 mg/dL (7.0-18.7); Calc. Creatinine Clearance 143 mL/min (70-130); Calcium 8.5 mg/dL (7.8-10.44); Carbon Dioxide 24 mmol/L (22-29); Chloride 105 mmol/L (98-107); Estimated GFR-MDRD 83; Glucose 110 mg/dL (70-105); Potassium 4.1 mmol/L (3.5-5.1); Sodium 137 mmol/L (136-145)
[2019-08-02] MEDS: Ondansetron PF 4 MG/2 ML Vial IVP PRN (08:32)
[2019-08-02] MEDS: Enoxaparin Sodium 40 MG/0.4 ML SYRINGE SC SCH (08:34)
[2019-08-02] MEDS: Pregabalin 75 MG CAP PO SCH ×2 (08:35→21:08)
[2019-08-02] MEDS: Famotidine 20 MG TAB PO SCH ×2 (08:36→21:18)
[2019-08-02] MEDS: NPH, Human Insulin Isophane 300 UNIT/3 ML VIAL SC SCH ×2 (08:37→21:11)
--- NOTE | 2019-08-02 15:50 | PDOC.HOSPP ---
- Subjective Subjective: no acute events, wound drain b/l extremities. no new c/s from the pt. - Objective Vital Signs & Weight: Vital Signs (12 hours) Temp Pulse Resp BP Pulse Ox 08/02/19 11:13 98.9 F 82 20 98/65 91 L 08/02/19 08:00 99.1 F 106 H 18 156/58 H 92 L Weight Admit Weight 215 lb Weight 215 lb I&O: 08/01/19 08/02/19 08/03/19 06:59 06:59 06:59 Intake Total 1750 Balance 1750 Result Diagrams: 08/02/19 05:57 08/02/19 05:57 Additional Labs: Accuchecks 08/02/19 08/02/19 08/02/19 11:15 08:47 06:06 POC Glucose 141 H 147 H 129 H 08/01/19 08/01/19 19:44 16:06 POC Glucose 141 H 216 H Hospitalist ROS - Medication Medications: Active Medications Generic Name Dose Route Start Last Admin Trade Name Freq PRN Reason Stop Dose Admin Hydrocodone Bitart/Acetaminophen 1 tab 07/30/19 12:12 07/30/19 16:47 [place] 5/325 PO 1 tab Q4H PRN Administration Moderate Pain (4-6) Hydrocodone Bitart/Acetaminophen 2 tab 07/30/19 12:12 08/02/19 14:21 [place] 5/325 PO 2 tab Q4H PRN Administration Severe Pain (7-10) Enoxaparin Sodium 40 mg 07/30/19 09:00 08/02/19 08:34 Lovenox SC 40 mg 0900 BOGDAN Administration Famotidine 20 mg 08/01/19 09:00 08/02/19 08:36 Pepcid PO 20 mg BID [facility] Administration Meropenem 1 gm/ Device 50 mls @ 100 mls/hr 07/30/19 02:00 08/02/19 11:09 IVPB 50 mls 0200,1000,1800 [facility] Administration Vancomycin HCl 1.5 gm/ Device 300 mls @ 200 mls/hr 07/30/19 06:00 08/02/19 06 :19 IVPB 300 mls 0600 [facility] Administration Sodium Chloride 1,000 mls @ 100 mls/hr 07/29/19 20:30 08/02/19 15:19 1/2 Normal Saline IV Not Given .Q10H [facility] Insulin Human Lispro 0 units 07/29/19 20:33 08/01/19 17:28 Humalog SC 4 unit .MODERATE SLIDING SC PRN Administration Moderate Correctional Scale Insulin Human NPH 15 unit 07/31/19 09:00 08/02/19 08:37 Humulin N SC Not Given BID [facility] Loperamide HCl 2 mg 07/31/19 18:08 08/01/19 01:48 Imodium PO 2 mg PRN PRN Administration Diarrhea/Loose Stools Ondansetron HCl 4 mg 07/29/19 20:13 07/31/19 05:43 Zofran Odt PO 4 mg Q6H PRN Administration Nausea/Vomiting Ondansetron HCl 4 mg 07/29/19 20:13 08/02/19 08:32 Zofran IVP 4 mg Q6H PRN Administration Nausea/Vomiting Pregabalin 150 mg 07/29/19 21:00 08/02/19 08:35 Lyrica PO 150 mg BID [facility] Administration Saccharomyces Boulardii 250 mg 07/31/19 21:00 08/01/19 21:05 Florastor PO 250 mg HS [facility] Administration Sodium Chloride 10 ml 07/29/19 21:00 08/02/19 08:36 Flush - Normal Saline IVF Not Given Q12HR [facility] Tramadol HCl 100 mg 07/31/19 12:33 08/01/19 13:38 Ultram PO 100 mg Q6H PRN Administration Severe Pain (7-10) - Exam General Appearance: NAD, awake alert, ill appearing Eye: anicteric sclera Neck: symmetric Heart: RRR, no murmur Respiratory: CTAB, no wheezes Gastrointestinal: soft, non-tender, non-distended, normal bowel sounds Extremities - other findings: b/l wound vac Hosp A/P - Plan Sepsis due to diabetic foot infection with Osteomyelitis - s/p left metatarsal amputation - on - s/p R foot I & D - - on wound vac b/l - Cont Atbx - Vancomycin/Meropenem -follow Vancomycin trough - ID/Surg/Positraty input appreciated DM2 with hypoglycemia Diabetic neuropathy -70/30---15 bid - Cont sliding scale -BG relatively ok - goal < 180 -fw on a1c----->10.7 STEPH on CKD 2 -cr at 0.8--back to baseline Morbid obesity BMI 40.6 HTN HLD dispo - prob dc in 1 to 2 days with fw on the wound clinic, once specialists clears her.
[2019-08-02] MEDS: Saccharomyces boulardii 250 MG CAP PO SCH (21:08)
[2019-08-03] MEDS: Loperamide HCl 2 MG CAP PO PRN ×2 (01:07→19:49)
[2019-08-03] MEDS: Sodium Chloride 0.45% 1,000 ML IV SCH ×3 (01:07→20:09)
[2019-08-03] MEDS: MEROPENEM 1 GM/50 ML 1 GM in Premix Bag 1 BAG IVPB SCH ×3 (03:23→22:02)
[2019-08-03 05:52] LABS: Vancomycin, Trough 13.7 ug/mL
[2019-08-03] MEDS: Vancomycin 1.5 GRAM/300 ML BAG 1.5 GM in Premix Bag 1 BAG IVPB SCH (06:19)
[2019-08-03] MEDS: HYDROcodone/Acetaminophen 5/325 mg Tablet PO PRN ×3 (11:12→22:03)
[2019-08-03] MEDS: Enoxaparin Sodium 40 MG/0.4 ML SYRINGE SC SCH (11:12)
[2019-08-03] MEDS: Famotidine 20 MG TAB PO SCH ×2 (11:13→19:54)
[2019-08-03] MEDS: Pregabalin 75 MG CAP PO SCH ×2 (11:13→19:56)
[2019-08-03] MEDS: NPH, Human Insulin Isophane 300 UNIT/3 ML VIAL SC SCH ×2 (11:14→22:04)
[2019-08-03] MEDS ORDERED: Morphine 2 MG/ML SYRINGE SLOW IVP PRN (11:41)
[2019-08-03] MEDS: traMADol HCl 50 MG TAB PO PRN ×2 (13:06→20:03)
--- NOTE | 2019-08-03 14:23 | PRG ---
DATE OF SERVICE: 08/03/2019 Ms. Olson is doing well today. She complains of right heel pain. She has remained afebrile over the weekend. White count is 9 and hemoglobin 9. Accu-Cheks 140 to 180. She is on meropenem and vancomycin. She is followed by Dr. Phillips. She is status post incision and drainage of a right foot neuropathic ulceration proximal to her plantar arch, extending medial and lateral with counter incisions made on Saturday, 3 days ago. Wound VAC was applied. Evaluation of that wound reveals that there is no evidence of infection. The tunneling has diminished in volume. There is still communication to the counter incision in lateral foot, but the medial foot track has obliterated. The wound VAC is reapplied. As far as the left foot, the amputated great toe looks good. It is granulating, healthy. Expected to heal without problems. Remainder of the foot looks normal. There is no evidence of infection. From a Surgical standpoint, the patient can be discharged home on antibiotic regimen per Dr. Phillips. Prognosis long-term for her right foot is very poor. Although she may heal this current problem, she is at high risk for recurrent problems and amputation below the knee on the right. She is morbidly obese, 5 feet and 1 inch, 40 BMI. She really needs attention to weight loss and better diabetes control. Hemoglobin A1c on admission was 10.7. At this point, I will see her as needed in this hospitalization. She can follow up in my office in 2 weeks, sooner as needed. Please call if necessary. Job ID: [id number]
--- NOTE | 2019-08-03 14:40 | PDOC.HOSPP ---
- Subjective Subjective: wound care at bedside, morphine ordered as sig.. pain. - Objective Vital Signs & Weight: Vital Signs (12 hours) Temp Pulse Resp BP Pulse Ox 08/03/19 08:04 95 08/03/19 07:58 98.5 F 82 18 127/80 95 Weight Admit Weight 215 lb Weight 215 lb Result Diagrams: 08/02/19 05:57 08/02/19 05:57 Additional Labs: Accuchecks 08/03/19 08/03/19 08/02/19 11:54 04:08 20:45 POC Glucose 172 H 188 H 276 H 08/02/19 16:10 POC Glucose 174 H Hospitalist ROS - Medication Medications: Active Medications Generic Name Dose Route Start Last Admin Trade Name Freq PRN Reason Stop Dose Admin Hydrocodone Bitart/Acetaminophen 1 tab 07/30/19 12:12 07/30/19 16:47 [place] 5/325 PO 1 tab Q4H PRN Administration Moderate Pain (4-6) Hydrocodone Bitart/Acetaminophen 2 tab 07/30/19 12:12 08/03/19 11:12 [place] 5/325 PO 2 tab Q4H PRN Administration Severe Pain (7-10) Enoxaparin Sodium 40 mg 07/30/19 09:00 08/03/19 11:12 Lovenox SC 40 mg 0900 BOGDAN Administration Famotidine 20 mg 08/01/19 09:00 08/03/19 11:13 Pepcid PO 20 mg BID [facility] Administration Meropenem 1 gm/ Device 50 mls @ 100 mls/hr 07/30/19 02:00 08/03/19 11:12 IVPB 50 mls 0200,1000,1800 [facility]AN Administration Vancomycin HCl 1.5 gm/ Device 300 mls @ 200 mls/hr 07/30/19 06:00 08/03/19 06 :19 IVPB 300 mls 0600 BOGDAN Administration Sodium Chloride 1,000 mls @ 100 mls/hr 07/29/19 20:30 08/03/19 11:14 1/2 Normal Saline IV 1,000 mls .Q10H [facility] Administration Insulin Human Lispro 0 units 07/29/19 20:33 08/01/19 17:28 Humalog SC 4 unit .MODERATE SLIDING SC PRN Administration Moderate Correctional Scale Insulin Human Lispro 0 units 07/29/19 20:33 08/02/19 21:13 Humalog SC 3 units .BEDTIME SLIDING SC PRN Administration Bedtime Correctional Scale Insulin Human NPH 15 unit 07/31/19 09:00 08/03/19 11:14 Humulin N SC Not Given BID [facility] Loperamide HCl 2 mg 07/31/19 18:08 08/03/19 01:07 Imodium PO 2 mg PRN PRN Administration Diarrhea/Loose Stools Morphine Sulfate 2 mg 08/03/19 11:41 08/03/19 12:24 Morphine SLOW IVP 2 mg Q4H PRN Administration Breakthrough Pain (5-10) Ondansetron HCl 4 mg 07/29/19 20:13 07/31/19 05:43 Zofran Odt PO 4 mg Q6H PRN Administration Nausea/Vomiting Ondansetron HCl 4 mg 07/29/19 20:13 08/02/19 08:32 Zofran IVP 4 mg Q6H PRN Administration Nausea/Vomiting Pregabalin 150 mg 07/29/19 21:00 08/03/19 11:13 Lyrica PO 150 mg BID [facility] Administration Saccharomyces Boulardii 250 mg 07/31/19 21:00 08/02/19 21:08 Florastor PO 250 mg HS [facility] Administration Sodium Chloride 10 ml 07/29/19 21:00 08/03/19 11:14 Flush - Normal Saline IVF Not Given Q12HR [facility] Tramadol HCl 100 mg 07/31/19 12:33 08/03/19 13:06 Ultram PO 100 mg Q6H PRN Administration Severe Pain (7-10) - Exam General Appearance: NAD, awake alert Eye: anicteric sclera ENT: normocephalic atraumatic Neck: symmetric Heart: RRR, no murmur Respiratory: CTAB, no wheezes Gastrointestinal: soft, non-distended, normal bowel sounds Extremities - other findings: r. foot wound being cared. left Metatarsal amputee; wound vac. b/l Skin: normal turgor Hosp A/P - Plan old records reviewed/req Sepsis due to diabetic foot infection with Osteomyelitis - s/p left metatarsal amputation - on - s/p R foot I & D - - on wound vac b/l - Cont Atbx - Vancomycin/Meropenem -follow Vancomycin trough---13.5 on - ID/Surg/Positraty input appreciated DM2 with hypoglycemia Diabetic neuropathy -70/30---15 bid - Cont sliding scale -BG relatively ok - goal < 180 -fw on a1c----->10.7 STEPH on CKD 2 -cr at 0.8--back to baseline Morbid obesity BMI 40.6 HTN HLD dispo - prob dc in 1 to 2 days with fw on the wound clinic. waiting for home abx recommendation and CM's input on home health plan for vac care.
[2019-08-03] MEDS ORDERED: cefTRIAXone\\ROCEPHIN 2 GM in Sodium Chloride 0.9% 100 ML IVPB SCH (15:00)
--- NOTE | 2019-08-03 15:48 | PRG ---
DATE OF SERVICE: 08/03/2019 SUBJECTIVE: The patient had amputation of the left first toe. The margins show compromise of the margins. The right heel without evidence of osteomyelitis on MRI. She had a lot of pain during dressing change yesterday. OBJECTIVE: VIAL SIGNS: Afebrile. GENERAL: Awake, alert, oriented. LUNGS: Clear. HEART: S1, S2, regular rate. ABDOMEN: Soft, not distended. EXTREMITIES: Both feet are dressed, the left wound with negative pressure dressing. LABORATORY DATA: White cell count is 9.8, hemoglobin 9.2, platelets 287. Cultures reveal Staph aureus which is methicillin sensitive, group B strep, Chanel albicans and mold species. ASSESSMENT AND DISCUSSION: Type 2 diabetes, neuropathy, recurrent complications in right/left feet. The right heel area without evidence of osteomyelitis on the second MRI one month apart, but the left side had osteo first ray sp amputation and now the patient will be transitioned to Rocephin IV plus oral Flagyl and Diflucan for 6 weeks, PICC line placement. Job ID: [id number] MTDD
[2019-08-03] MEDS: metroNIDAZOLE 500 MG TAB PO SCH ×2 (16:44→20:06)
[2019-08-03] MEDS: HumaLOG 300 UNITS/3 ML VIAL SC PRN (16:53)
[2019-08-03] MEDS: Ondansetron PF 4 MG/2 ML Vial IVP PRN (19:49)
[2019-08-03] MEDS: Saccharomyces boulardii 250 MG CAP PO SCH (19:56)
[2019-08-04] MEDS: Loperamide HCl 2 MG CAP PO PRN (01:07)
[2019-08-04] MEDS: Sodium Chloride 0.45% 1,000 ML IV SCH (01:09)
[2019-08-04] MEDS: HYDROcodone/Acetaminophen 5/325 mg Tablet PO PRN ×4 (04:22→17:23)
[2019-08-04] MEDS: MEROPENEM 1 GM/50 ML 1 GM in Premix Bag 1 BAG IVPB SCH ×2 (05:05→15:06)
[2019-08-04] MEDS: Vancomycin 1.5 GRAM/300 ML BAG 1.5 GM in Premix Bag 1 BAG IVPB SCH (05:17)
[2019-08-04] MEDS: NPH, Human Insulin Isophane 300 UNIT/3 ML VIAL SC SCH (07:57)
[2019-08-04] MEDS: Enoxaparin Sodium 40 MG/0.4 ML SYRINGE SC SCH (07:57)
[2019-08-04] MEDS: Pregabalin 75 MG CAP PO SCH (07:59)
[2019-08-04] MEDS: metroNIDAZOLE 500 MG TAB PO SCH ×2 (07:59→15:06)
[2019-08-04] MEDS: Famotidine 20 MG TAB PO SCH (07:59)
[2019-08-04] MEDS ORDERED: Fluconazole 100 MG TAB PO SCH (09:00)
--- NOTE | 2019-08-04 11:13 | SPC ---
PICC LINE PLACEMENT USING FLUOROSCOPIC GUIDANCE DIAGNOSIS: Need for long-term IV antibiotics SLINGER SEQUINS: Steve ANESTHESIA: 1 mL of buffered 1% lidocaine. EXPOSURE: 0.2 minutes of fluoroscopic time; 1803 mGy/sq cm TECHNIQUE: Prior to the procedure, the risks and benefits of a PICC placement were explained and full consent was obtained. The right upper extremity was prepped and draped in the usual sterile fashion. The patient had an in dwelling midline in the right arm. Lidocaine was used to anesthetize the skin surrounding the midline. A PICC wire was placed through th e midline with its tip at the atriocaval junction. The PICC line was measured on the PICC wire and cut to 38 cm. A small skin incision was made allowing for passage of the peel-away sheath. This peel-away sheath was then placed over the PICC wire. The PICC line was then placed over the wire through the peel-away sheath and the sheath removed. The PICC line was seen with its tip at the atriocaval junction. The line flushed and aspirated without difficulty.
[2019-08-04] MEDS: HumaLOG 300 UNITS/3 ML VIAL SC PRN (11:45)
--- NOTE | 2019-08-04 16:05 | PDOC.HOSPP ---
- Subjective Subjective: pAIN CONTROLLED. doing better today. - Objective Vital Signs & Weight: Vital Signs (12 hours) Temp Pulse Resp BP Pulse Ox 08/04/19 08:02 97.6 F 80 16 114/72 96 08/04/19 08:00 96 Weight Admit Weight 215 lb Weight 215 lb I&O: 08/03/19 08/04/19 08/05/19 06:59 06:59 06:59 Intake Total 1850 240 Balance 1850 240 Result Diagrams: 08/02/19 05:57 08/02/19 05:57 Additional Labs: Accuchecks 08/04/19 08/04/19 08/03/19 11:32 04:51 20:27 POC Glucose 233 H 157 H 155 H 08/03/19 16:55 POC Glucose 258 H Hospitalist ROS - Medication Medications: Active Medications Generic Name Dose Route Start Last Admin Trade Name Freq PRN Reason Stop Dose Admin Hydrocodone Bitart/Acetaminophen 1 tab 07/30/19 12:12 07/30/19 16:47 [place] 5/325 PO 1 tab Q4H PRN Administration Moderate Pain (4-6) Hydrocodone Bitart/Acetaminophen 2 tab 07/30/19 12:12 08/04/19 11:49 [place] 5/325 PO 2 tab Q4H PRN Administration Severe Pain (7-10) Enoxaparin Sodium 40 mg 07/30/19 09:00 08/04/19 07:57 Lovenox SC 40 mg 0900 BOGDAN Administration Famotidine 20 mg 08/01/19 09:00 08/04/19 07:59 Pepcid PO 20 mg BID BOGDAN Administration Fluconazole 400 mg 08/04/19 09:00 08/04/19 07:59 Diflucan PO 400 mg DAILY BOGDAN Administration Vancomycin HCl 1.5 gm/ Device 300 mls @ 200 mls/hr 07/30/19 06:00 08/04/19 05 :17 IVPB 300 mls 0600 BOGDAN Administration Sodium Chloride 1,000 mls @ 100 mls/hr 07/29/19 20:30 08/04/19 01:09 1/2 Normal Saline IV 1,000 mls .Q10H BOGDAN Administration Meropenem 1 gm/ Device 50 mls @ 100 mls/hr 08/03/19 22:00 08/04/19 15:06 IVPB 50 mls Q8HR BOGDAN Administration Insulin Human Lispro 0 units 07/29/19 20:33 08/04/19 11:45 Humalog SC 4 unit .MODERATE SLIDING SC PRN Administration Moderate Correctional Scale Insulin Human Lispro 0 units 07/29/19 20:33 08/02/19 21:13 Humalog SC 3 units .BEDTIME SLIDING SC PRN Administration Bedtime Correctional Scale Insulin Human NPH 15 unit 07/31/19 09:00 08/04/19 07:57 Humulin N SC 15 unit BID BOGDAN Administration Loperamide HCl 2 mg 07/31/19 18:08 08/04/19 01:07 Imodium PO 2 mg PRN PRN Administration Diarrhea/Loose Stools Metronidazole 500 mg 08/03/19 15:00 08/04/19 15:06 Flagyl PO 500 mg TID BOGDAN Administration Morphine Sulfate 2 mg 08/03/19 11:41 08/03/19 12:24 Morphine SLOW IVP 2 mg Q4H PRN Administration Breakthrough Pain (5-10) Ondansetron HCl 4 mg 07/29/19 20:13 07/31/19 05:43 Zofran Odt PO 4 mg Q6H PRN Administration Nausea/Vomiting Ondansetron HCl 4 mg 07/29/19 20:13 08/03/19 19:49 Zofran IVP 4 mg Q6H PRN Administration Nausea/Vomiting Pregabalin 150 mg 07/29/19 21:00 08/04/19 07:59 Lyrica PO 150 mg BID BOGDAN Administration Saccharomyces Boulardii 250 mg 07/31/19 21:00 08/03/19 19:56 Florastor PO 250 mg HS BOGDAN Administration Sodium Chloride 10 ml 07/29/19 21:00 08/04/19 08:08 Flush - Normal Saline IVF Not Given Q12HR [facility] Tramadol HCl 100 mg 07/31/19 12:33 08/03/19 20:03 Ultram PO 100 mg Q6H PRN Administration Severe Pain (7-10) - Exam General Appearance: NAD, awake alert ENT: normocephalic atraumatic Neck: supple, symmetric Heart: RRR, no murmur Respiratory: CTAB, no wheezes, no tachypnea Gastrointestinal: soft, non-tender, normal bowel sounds Extremities - other findings: left metatarsal amputation Hosp A/P - Plan old records reviewed/req Sepsis due to diabetic foot infection with Osteomyelitis - s/p left metatarsal amputation - on - s/p R foot I & D - - on wound vac b/l - Cont Atbx - Vancomycin/Meropenem -follow Vancomycin trough---13.5 on - ID/Surg/Positraty input appreciated DM2 with hypoglycemia Diabetic neuropathy -70/30---15 bid - Cont sliding scale -BG relatively ok - goal < 180 -fw on a1c----->10.7 STEPH on CKD 2 -cr at 0.8--back to baseline Morbid obesity BMI 40.6 HTN HLD wound clinic, outpt infusion care have been arranged. CTX, flagyl and diflucan x 6 wks
[2019-08-04 17:26] VITALS: BP 126/70; TEMP 97.7
--- NOTE | 2019-08-05 02:51 | DIS ---
DATE OF ADMISSION: 07/29/2019 DATE OF DISCHARGE: 08/04/2019 DISCHARGE DIAGNOSES: 1. Sepsis due to diabetic foot infection. 2. Status post left metatarsal amputation on . 3. Status post right foot I and D on . Wound VAC bilateral. 4. Type 2 diabetes mellitus 5. Diabetic neuropathy. 6. Acute kidney injury on chronic kidney disease, stage 2. 7. Morbid obesity with BMI of 40.6. 8. Hypertension and hyperlipidemia. DISCHARGE MEDICATIONS: 1. Fluconazole 400 mg daily for 6 weeks. 2. Flagyl 500 mg three times a day for 6 weeks. 3. Ceftriaxone 1 g daily for 6 weeks. 4. NPH 15 units b.i.d. 5. Pregabalin 150 mg twice a day. 6. Meclizine 25 mg three times a day as needed. 7. Humulin 70/30, 40 units at bedtime. 8. Tylenol No.3 q.6 hours as needed for pain control. PHYSICAL EXAMINATION: VITAL SIGNS: On the day of discharge, she is afebrile and temp of 97.6, pulse 80, blood pressure is 114/72, and satting 96% in the room air. GENERAL: The patient is alert and oriented x4. Discharge plan discussed, and she is agreeable. CARDIOVASCULAR: Regular rate and rhythm without murmurs, rubs, or gallops. LUNGS: Clear to auscultation bilaterally without wheezing, rales, or rhonchi. ABDOMEN: Soft, nontender, nondistended. Good bowel sounds. EXTREMITIES: She has a metatarsal amputation on the left leg and I and D on the right lateral foot. On both, she has a wound VAC. HOSPITAL COURSE: This is a 49-year-old, obese, diabetic female, admitted with fever, chills, and infected toes. She has undergone metatarsal amputation of the left foot and I and D on the right. She was started on vancomycin and meropenem. Podiatry and Infectious Disease followed with us. Post procedure feliciano, she did well. Her right heel area did not show any evidence of osteomyelitis on the second MRI. She had left side first ray osteomyelitis. So, she had amputation. Now, the antibiotics transitioned to Rocephin for 6 weeks as well as diflucan and Flagyl as given above for 6 weeks. PICC line placed today on . Outpatient infusion arrangement has been made for her IV antibiotics. She also has a home wound VAC care followup been scheduled. The patient is hemodynamically stable. She will be discharged today. DISCHARGE INSTRUCTIONS: 1. Activity as tolerated. 2. Diabetic diet. 3. Follow up with Dr. David Phillips as needed in the Infectious Disease clinic in 2 weeks or after antibiotic course completed. 4. Follow up with Podiatry, Dr. Gigi Vega per their clinic appointment. TIME SPENT: Discharge time took over 30 minutes. Job ID: [id number] MTDD
== END 2019-08-04 17:38 | disposition home or self-care (01) | DRG 854 ==
LOC: ERS 15:03 → T4-B 20:09
PROVIDERS: ADMIT Emergency Medicine; ATTEND Emergency Medicine
PROC: 0Y6N0Z9 Detachment at Left Foot, Partial 1st Ray, Open Approach (ICD-10-PCS; principal; 2019-07-31)
PROC: 0JBQ0ZZ Excision of Right Foot Subcutaneous Tissue and Fascia, Open Approach (ICD-10-PCS; 2019-07-31)
PROC: 02HV33Z Insertion of Infusion Device into Superior Vena Cava, Percutaneous Approach (ICD-10-PCS; 2019-08-04)
PROC: B5181ZA Fluoroscopy of Superior Vena Cava using Low Osmolar Contrast, Guidance (ICD-10-PCS; 2019-08-04)
DX: A41.9 Sepsis, unspecified organism (principal); L03.116 Cellulitis of left lower limb; M00.9 Pyogenic arthritis, unspecified; E11.52 Type 2 diabetes mellitus with diabetic peripheral angiopathy with gangrene; I96 Gangrene, not elsewhere classified; M86.8X6 Other osteomyelitis, lower leg; N17.9 Acute kidney failure, unspecified; Z68.41 Body mass index [BMI] 40.0-44.9, adult; E11.69 Type 2 diabetes mellitus with other specified complication; E11.42 Type 2 diabetes mellitus with diabetic polyneuropathy; Z79.4 Long term (current) use of insulin; E11.65 Type 2 diabetes mellitus with hyperglycemia; G43.909 Migraine, unspecified, not intractable, without status migrainosus; F17.210 Nicotine dependence, cigarettes, uncomplicated; Z89.429 Acquired absence of other toe(s), unspecified side; E11.621 Type 2 diabetes mellitus with foot ulcer; E11.22 Type 2 diabetes mellitus with diabetic chronic kidney disease; E11.628 Type 2 diabetes mellitus with other skin complications; L97.519 Non-pressure chronic ulcer of other part of right foot with unspecified severity; E66.01 Morbid (severe) obesity due to excess calories; N18.2 Chronic kidney disease, stage 2 (mild); E11.649 Type 2 diabetes mellitus with hypoglycemia without coma
CPT/HCPCS: 36415; 36416; 36569; 71045; 80048; 80053; 80202; 83036; 83605; 85025; 87040; 87070; 87077; 87186; 87205; 88305; 88311; 93005; 96365; 96368; 96375; A9579; C1751; J1650; J1815; J1885; J2001; J2185; J2270; J2405; J2704; J2765; J3010; J3370; Q0162

== ENCOUNTER 2019-08-14 18:45 | Emergency (ER) | payer SELFPAY ==
[2019-08-14] MEDS ORDERED: diphenhydrAMINE 50 MG/ML VIAL ONE (20:04)
[2019-08-14] MEDS ORDERED: Metoclopramide HCl 10 MG/2 ML VIAL ONE (20:04)
[2019-08-14] MEDS ORDERED: Meclizine HCl 25 MG TAB ONE (20:04)
[2019-08-14 20:46] LABS: #Basophils 0.1 thou/uL (0.0-0.2); #Eosinphils 0.4 thou/uL (0.0-0.7); #Lymphocytes 4.2 thou/uL (1.20-3.40); #Monocytes 0.8 thou/uL (0.11-0.59); #Neutrophils 9.2 thou/uL (1.40-6.50); %Basophils 0.9 % (0.0-1.0); %Eosinophils 2.7 % (0.0-10.0); %Lymphocytes 28.6 % (21.0-51.0); %Monocytes 5.4 % (0.0-10.0); %Neutrophils 62.4 % (42.0-75.0); Mean Corpuscular HGB CONC 32.9 g/dL (32.0-36.0); Mean Corpuscular Hemoglobin 27.2 pg (27.0-31.0); Mean Corpuscular Volume 82.9 fL (78.0-98.0); Mean Platelet Volume 9.4 fL (7.4-10.4); Platelet Count 368 thou/uL (130-400); RBC Distribution Width 15.7 % (11.5-14.5); Red Blood Cell (RBC) Count 4.42 mill/uL (4.20-5.40); White Blood Cell (WBC) Count 14.8 thou/uL (4.8-10.8)
[2019-08-14 21:35] LABS: Albumin 3.4 g/dL (3.5-5.0)
[2019-08-14 21:36] LABS: Chloride 97 mmol/L (98-107); Potassium 3.6 mmol/L (3.5-5.1); Sodium 135 mmol/L (136-145)
[2019-08-14 21:37] LABS: Calcium 8.8 mg/dL (7.8-10.44); Glucose 395 mg/dL (70-105)
[2019-08-14 21:38] LABS: Globulin 4.4 g/dL (2.4-3.5); Protein, Total 7.8 g/dL (6.0-8.3)
[2019-08-14 21:39] LABS: Anion Gap 15 mmol/L (10-20); Bilirubin, Total 0.2 mg/dL (0.2-1.2); Carbon Dioxide 27 mmol/L (22-29)
[2019-08-14 21:40] LABS: Alkaline Phosphatase 114 U/L (40-110)
[2019-08-14 21:41] LABS: Calc. Creatinine Clearance 0 mL/min (70-130); Estimated GFR-MDRD 32
[2019-08-14 21:42] LABS: BUN (Urea Nitrogen) 18 mg/dL (7.0-18.7)
[2019-08-14 21:43] LABS: ALT (SGPT) 24 U/L (8-55); AST (SGOT) 28 U/L (5-34)
[2019-08-14 21:44] LABS: CK (CPK) 91 U/L (29-168); Lipase 22 U/L (8-78)
== END 2019-08-14 23:43 | disposition home or self-care (01) ==
LOC: ERS 18:45
DX: R42 Dizziness and giddiness (principal); E11.40 Type 2 diabetes mellitus with diabetic neuropathy, unspecified; G43.909 Migraine, unspecified, not intractable, without status migrainosus; F32.9 Major depressive disorder, single episode, unspecified; F17.290 Nicotine dependence, other tobacco product, uncomplicated; Z79.4 Long term (current) use of insulin; Z79.899 Other long term (current) drug therapy
CPT/HCPCS: 36415; 80053; 82550; 83690; 84484; 85025; 93005; 96361; 96374; 96375; J1200; J2765; J8597

== ENCOUNTER 2019-08-19 13:22 | Inpatient (IN) | payer SELFPAY ==
[2019-08-19 14:00] LABS: #Basophils 0.1 thou/uL (0.0-0.2); #Eosinphils 0.5 thou/uL (0.0-0.7); #Lymphocytes 4.2 thou/uL (1.20-3.40); #Neutrophils 11.3 thou/uL (1.40-6.50); %Basophils 0.7 % (0.0-1.0); %Eosinophils 3.2 % (0.0-10.0); %Lymphocytes 24.3 % (21.0-51.0); %Monocytes 5.6 % (0.0-10.0); %Neutrophils 66.2 % (42.0-75.0); Hemoglobin 12.1 g/dL (12.0-16.0); Mean Corpuscular HGB CONC 32.1 g/dL (32.0-36.0); Mean Corpuscular Hemoglobin 26.7 pg (27.0-31.0); Mean Corpuscular Volume 83.1 fL (78.0-98.0); Mean Platelet Volume 9.2 fL (7.4-10.4); Platelet Count 325 thou/uL (130-400); RBC Distribution Width 14.7 % (11.5-14.5); Red Blood Cell (RBC) Count 4.55 mill/uL (4.20-5.40); White Blood Cell (WBC) Count 17.1 thou/uL (4.8-10.8)
--- NOTE | 2019-08-19 14:16 | CT ---
EXAM: CT brain without contrast HISTORY: Low blood pressure after getting outpatient antibiotic infusion; fall with head trauma COMPARISON: 02/23/2019 TECHNIQUE: Multiple contiguous axial images were obtained and a CT of the brain without contrast. FINDINGS: The brain is normal in morphology and attenuation without focal lesions or confluent areas of infarction. There is no evidence of hydrocephalus, intracranial hemorrhage, or extra-axial fluid collection. The calvarium and overlying soft tissues are unremarkable. The visualized paranasal sinuses and masto id air cells are well aerated. IMPRESSION: No evidence of acute intracranial abnormality
[2019-08-19 14:20] LABS: ALT (SGPT) 22 U/L (8-55); AST (SGOT) 25 U/L (5-34); Albumin 3.6 g/dL (3.5-5.0); Alkaline Phosphatase 113 U/L (40-110); Anion Gap 17 mmol/L (10-20); BUN (Urea Nitrogen) 25 mg/dL (7.0-18.7); Bilirubin, Total 0.4 mg/dL (0.2-1.2); Calc. Creatinine Clearance 0 mL/min (70-130); Calcium 9.1 mg/dL (7.8-10.44); Carbon Dioxide 27 mmol/L (22-29); Chloride 96 mmol/L (98-107); Estimated GFR-MDRD 40; Globulin 4.1 g/dL (2.4-3.5); Glucose 270 mg/dL (70-105); Potassium 3.9 mmol/L (3.5-5.1); Protein, Total 7.7 g/dL (6.0-8.3); Sodium 136 mmol/L (136-145)
[2019-08-19 14:23] LABS: Bacteria/HPF None Seen HPF (None Seen); Bilirubin Negative (Negative); Blood, Urine Negative (Negative); Clarity Clear (Clear); Glucose, Urine (Dipstick) 50 mg/dL (Negative); Leukocyte 25 Leu/uL (Negative); Nitrite Negative (Negative); Protein, Urine (Dipstick) 100 mg/dL (Neg-Trace); RBC/HPF 0-3 HPF (0-3); Squamous Epithelial 0-3 HPF (0-3); Urobilinogen Normal mg/dL (Less than 2); WBC/HPF 0-3 HPF (0-3)
[2019-08-19] MEDS ORDERED: Dextrose 5% in Water 1,000 ML IV PRN (17:49)
[2019-08-19] MEDS ORDERED: Cepastat Lozenges 1 LOZ PO PRN (17:49)
[2019-08-19] MEDS ORDERED: Loratadine 10 MG TAB PO PRN (17:49)
[2019-08-19] MEDS ORDERED: Bisacodyl 10 MG SUPP PR PRN (17:49)
[2019-08-19] MEDS ORDERED: hydrALAZINE 20 MG/ML VIAL SLOW IVP PRN (17:49)
[2019-08-19] MEDS ORDERED: Senokot S 8.6-50 MG TAB PO PRN (17:49)
[2019-08-19] MEDS ORDERED: Diabetic Tussin 200 MG/10 ML UDCUP PO PRN (17:49)
[2019-08-19] MEDS ORDERED: Dextrose 50% Abboject 50 ML SYRINGE SLOW IVP PRN (17:49)
[2019-08-19] MEDS ORDERED: Calcium Carbonate 500 MG ChewTAB PO PRN (17:49)
[2019-08-19] MEDS ORDERED: Sodium Chloride 0.65% Nasal 44 ML BOT EA NARE PRN (17:49)
[2019-08-19] MEDS ORDERED: Artificial Tears 18 DROP/0.9 ML EA EYE PRN (17:49)
[2019-08-19] MEDS ORDERED: Insulin Regular 300 UNITS/3 ML VIAL SC PRN (17:49)
--- NOTE | 2019-08-19 18:32 | HP ---
PRIMARY CARE PHYSICIAN: Dr. Sada Aranda. REASON FOR ADMISSION: Syncope/low blood pressure, leukocytosis. HISTORY OF PRESENT ILLNESS: A 49-year-old female with a history of diabetes type 2, who was recently admitted in our hospital, at that time the patient had osteomyelitis of the left great toe and the patient had severe cellulitis and infection extended to the metatarsal and MRI report confirmed osteomyelitis of left second and third metatarsal and also fourth and fifth metatarsal. The patient underwent amputation of left great toe metatarsal and wound left open for secondary intention and subsequently, the patient had wound VAC placed. The patient had PICC line placed and the patient was discharged with outpatient IV antibiotic therapy. After discharge from the hospital, the patient was doing well. This morning, the patient had episode of syncope, but she did not go to any doctor's office or hospital. Today, she went to regular her infusion for antibiotic therapy. At that time, the patient was complaining of dizziness and that is why the patient was referred to go to emergency room for evaluation. When she presented to emergency room, her blood pressure was lower side. She was given IV fluid and after that, her blood pressure improved. The patient was found with leukocytosis, but the patient was not having any fever. The patient is being admitted for further evaluation and treatment. REVIEW OF SYSTEMS: CONSTITUTIONAL: Negative for weight loss or gain, ability to conduct usual activities. SKIN: Negative for rash, itching. EYES: Negative for double vision, pain. ENT/MOUTH: Negative for nose bleeding, neck stiffness, pain, tenderness. CARDIOVASCULAR: Negative for palpitations, dyspnea on exertion, orthopnea. RESPIRATORY: Negative for shortness of breath, wheezing, cough, hemoptysis, fever or night sweats. GASTROINTESTINAL: Negative for poor appetite, abdominal pain, heartburn, nausea, vomiting, constipation, or diarrhea. GENITOURINARY: Negative for urgency, frequency, dysuria, nocturia. MUSCULOSKELETAL: Negative for pain, swelling. NEUROLOGIC/PSYCHIATRIC: Negative for anxiety, depression. ALLERGY/IMMUNOLOGIC: Negative for skin rash, bleeding tendency. Please see my HPI for pertinent positives and negatives. All other review of systems reviewed and negative except as mentioned in HPI. PAST MEDICAL HISTORY: Diabetes type 2, insulin dependent, diabetic peripheral neuropathy with a history of multiple foot infection and previous amputation, migraine headache, and history of kidney cyst. PAST SURGICAL HISTORY: x3, infected cyst removal from the left side of the back, and toe amputation x2. PAST PSYCHIATRIC HISTORY: Anxiety and depression. SOCIAL HISTORY: The patient smokes about 3 cigar daily. No history of alcohol or other illicit drug abuse. She is and her is present with her. FAMILY HISTORY: Diabetes among several family members. Coronary artery disease to her father. ALLERGIES: ROCEPHIN, LEVAQUIN, AND LACTULOSE. CURRENT HOME MEDICATIONS: The patient was discharged to home on following medication: 1. Humulin insulin 70/30, 40 units in the morning and 60 units in the evening. 2. Lyrica 150 mg twice daily. 3. Tylenol No. 3 one tablet q.6 hourly p.r.n. 4. Diflucan 400 mg p.o. daily. 5. Meclizine 12.5 mg p.o. t.i.d. p.r.n. 6. Flagyl 500 mg p.o. t.i.d. 7. Rocephin via PICC line. EMERGENCY ROOM COURSE: Reviewed. PHYSICAL EXAMINATION: VITAL SIGNS: Blood pressure improved to 150/60, pulse 75, respiratory rate 18, temperature 98.6, and saturation 99% on room air. GENERAL: The patient is currently alert and awake, in no acute distress. HEAD: Normocephalic and atraumatic. NECK: Supple. No JVD. No meningeal signs of irritation. LUNGS: Clear to auscultation without any rhonchi or rales. CARDIAC: S1 and S2 regular. No murmur. No gallop. No rub. ABDOMEN: Soft. Bowel sounds present. Nontender. Nondistended. No organomegaly. No mass. EXTREMITIES: Left great toe site covered with wound VAC. Toe amputation noted. Right lower extremity covered with cast. ABDOMEN: Soft and benign without any tenderness. NEUROLOGIC: Nonfocal examination. The patient moves all 4 limbs. Speech normal. Reflexes symmetrical. No cerebellar sign. SIGNIFICANT LABORATORY DATA: CBC; WBC 17.1, hemoglobin 12.1, platelet 325. BMP; sodium 136, potassium 3.9, chloride 96, carbon dioxide 27, BUN 25, creatinine 1.40, glucose 270, calcium 9.1. LFT; AST 25, ALT 22, alkaline phosphatase 113, albumin 3.6. Troponin I 0.017. Urinalysis normal. CT of brain based on my review, no acute intracranial process. ASSESSMENT AND PLAN: 1. Syncope/dizziness, etiology uncertain but the patient had positive orthostatic hypotension in the emergency room, suspected from volume depletion from uncontrolled diabetes. The patient also has leukocytosis, so underlying ongoing infection cannot be entirely excluded. We will check procalcitonin and lactic acid. We will continue with overnight IV fluid, and we will consult ID to evaluate this wound to rule out any underlying infection. We will consult Wound Care Team. 2. Recent history of osteomyelitis of toes, required amputation with ongoing infection. The patient has leukocytosis. We will consult Dr. Phillips. We will continue IV Rocephin, which was prescribed as well as we will also continue Diflucan and Flagyl. We will check CRP tomorrow, lactic acid, and procalcitonin. 3. Diabetes type 2, uncontrolled. We will continue with insulin 70/30 as per home dosage. 4. Diabetic neuropathy. Continue Lyrica 150 mg twice daily. 5. Deep venous thrombosis prophylaxis. Lovenox 40 mg subcu daily. 6. Gastrointestinal prophylaxis, Pepcid 20 mg p.o. daily. CODE STATUS: The patient is full code as the patient had echocardiography within one year and her examination is normal. We want to repeat any echocardiography during this admission. DISPOSITION PLAN: Based on clinical course and data center consultant recommendation. Job ID: [id number]
[2019-08-19] MEDS: HYDROcodone/Acetaminophen 5/325 mg Tablet PO PRN (20:13)
[2019-08-19] MEDS: Famotidine 20 MG TAB PO SCH (20:13)
[2019-08-19] MEDS: metroNIDAZOLE 500 MG TAB PO SCH (20:13)
[2019-08-19] MEDS: Loperamide HCl 2 MG CAP PO PRN (22:10)
[2019-08-19] MEDS: HumuLIN 70/30 (300 UNITS/3 ML VIAL) SC SCH (22:24)
[2019-08-19] MEDS: Sodium Chloride 0.9% 1,000 ML IV SCH (23:44)
[2019-08-19] MEDS: cefTRIAXone\\ROCEPHIN 1 GM in Sodium Chloride 0.9% 100 ML IVPB SCH (23:44)
[2019-08-20] MEDS: HYDROcodone/Acetaminophen 5/325 mg Tablet PO PRN ×3 (03:15→23:11)
[2019-08-20] MEDS: Sodium Chloride 0.9% 1,000 ML IV SCH ×2 (03:32→17:56)
[2019-08-20 04:56] LABS: #Basophils 0.1 thou/uL (0.0-0.2); #Eosinphils 0.6 thou/uL (0.0-0.7); #Lymphocytes 4.2 thou/uL (1.20-3.40); #Monocytes 0.8 thou/uL (0.11-0.59); %Basophils 0.8 % (0.0-1.0); %Eosinophils 5.2 % (0.0-10.0); %Lymphocytes 39.4 % (21.0-51.0); %Monocytes 7.8 % (0.0-10.0); %Neutrophils 46.9 % (42.0-75.0); Hemoglobin 10.8 g/dL (12.0-16.0); Mean Corpuscular HGB CONC 32.1 g/dL (32.0-36.0); Mean Corpuscular Hemoglobin 26.7 pg (27.0-31.0); Mean Corpuscular Volume 83.1 fL (78.0-98.0); Mean Platelet Volume 8.9 fL (7.4-10.4); Platelet Count 274 thou/uL (130-400); RBC Distribution Width 14.6 % (11.5-14.5); Red Blood Cell (RBC) Count 4.06 mill/uL (4.20-5.40); White Blood Cell (WBC) Count 10.6 thou/uL (4.8-10.8)
[2019-08-20 05:10] LABS: Anion Gap 11 mmol/L (10-20); BUN (Urea Nitrogen) 19 mg/dL (7.0-18.7); Calc. Creatinine Clearance 108 mL/min (70-130); Calcium 8.3 mg/dL (7.8-10.44); Carbon Dioxide 26 mmol/L (22-29); Chloride 104 mmol/L (98-107); Estimated GFR-MDRD 61; Glucose 160 mg/dL (70-105); Potassium 3.3 mmol/L (3.5-5.1); Sodium 138 mmol/L (136-145)
[2019-08-20 05:16] LABS: Lactic Acid 1.3 mmol/L (0.5-2.2)
[2019-08-20] MEDS: Acetaminophen 325 MG TAB PO PRN (06:51)
--- NOTE | 2019-08-20 08:11 | PDOC.HOSPP ---
- Subjective Encounter Date: 08/20/19 Encounter Time: 10:00 Subjective: Patient feeling a bit less dizzy after fluids in the ER, but has a bad headache this AM. - Objective Vital Signs & Weight: Vital Signs (12 hours) Temp Pulse Resp BP Pulse Ox 08/20/19 03:11 98.7 F 67 15 129/56 L 98 08/20/19 00:39 98.6 F 72 16 139/56 L 99 08/19/19 20:12 88 18 174/74 H 99 Weight Weight 212 lb 11.937 oz I&O: 08/19/19 08/20/19 08/21/19 06:59 06:59 06:59 Intake Total 360 Output Total 1225 Balance -865 Result Diagrams: 08/20/19 04:40 08/20/19 04:40 Additional Labs: Accuchecks 08/20/19 08/19/19 06:43 21:21 POC Glucose 120 H 382 H Hospitalist ROS - Review of Systems Constitutional: denies: fever, chills Respiratory: denies: cough, shortness of breath Cardiovascular: denies: chest pain, palpitations Gastrointestinal: reports: nausea, diarrhea. denies: vomiting, abdominal pain - Medication Medications: Active Medications Generic Name Dose Route Start Last Admin Trade Name Freq PRN Reason Stop Dose Admin Acetaminophen 650 mg 08/19/19 17:49 08/20/19 06:51 Tylenol PO 650 mg Q4H PRN Administration Headache/Fever/Mild Pain (1-3) Hydrocodone Bitart/Acetaminophen 1 tab 08/19/19 17:49 08/20/19 03:15 [place] 5/325 PO 1 tab Q4H PRN Administration Moderate Pain (4-6) Famotidine 20 mg 08/19/19 21:00 08/19/19 20:13 Pepcid PO 20 mg BID BOGDAN Administration Ceftriaxone Sodium 1 gm/ 100 mls @ 200 mls/hr 08/19/19 21:00 08/19/19 23:44 Sodium Chloride IVPB Not Given 2100 BOGDAN Sodium Chloride 1,000 mls @ 75 mls/hr 08/19/19 17:49 08/20/19 03:32 Normal Saline 0.9% IV 1,000 mls .[id number] BOGDAN Administration Insulin Human Isoph/Insulin Regular 40 units 08/19/19 21:00 08/19/19 22:24 Humulin 70/30 SC 40 unit QPM BOGDAN Administration Loperamide HCl 2 mg 08/19/19 17:49 08/19/19 22:10 Imodium PO 2 mg PRN PRN Administration Diarrhea/Loose Stools Metronidazole 500 mg 08/19/19 21:00 08/19/19 20:13 Flagyl PO 500 mg TID BOGDAN Administration - Exam General Appearance: NAD, awake alert ENT: moist mucosa Heart: RRR, no murmur, no gallops, no rubs Respiratory: CTAB, no wheezes, no rales, no ronchi Gastrointestinal: soft, non-tender, non-distended, normal bowel sounds Psychiatric: normal affect, normal behavior, A&O x 3 Hosp A/P (1) Sepsis Code(s): A41.9 - SEPSIS, UNSPECIFIED ORGANISM Status: Acute (2) Syncope Code(s): R55 - SYNCOPE AND COLLAPSE Status: Acute (3) Osteomyelitis of left foot Code(s): M86.9 - OSTEOMYELITIS, UNSPECIFIED Status: Chronic Plan: s/p toe amputation, on IV and oral abx (4) Acute renal failure Status: Acute Plan: resolved with fluid resuscitation (5) DM2 (diabetes mellitus, type 2) Status: Chronic Qualifiers: 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 ID-Alan consulted. Working up. Labs and vitals improved with IV fluids in ER, but still with orthostasis on recheck, will give another liter of fluid. Switch to inpatient.
[2019-08-20] MEDS ORDERED: Potassium Chloride 20 MEQ TAB PO SCH (08:15)
[2019-08-20] MEDS: metroNIDAZOLE 500 MG TAB PO SCH ×3 (08:36→21:30)
[2019-08-20] MEDS: Fluconazole 100 MG TAB PO SCH (08:36)
[2019-08-20] MEDS: Famotidine 20 MG TAB PO SCH ×2 (08:36→21:30)
[2019-08-20] MEDS: Gabapentin 300 MG CAP PO SCH ×2 (08:36→21:30)
[2019-08-20] MEDS: Enoxaparin Sodium 40 MG/0.4 ML SYRINGE SC SCH (08:37)
[2019-08-20] MEDS: HumuLIN 70/30 (300 UNITS/3 ML VIAL) SC SCH ×2 (08:41→21:38)
[2019-08-20] MEDS ORDERED: Sodium Chloride 0.9% 1,000 ML IV SCH (10:15)
[2019-08-20] MEDS: Insulin Regular 300 UNITS/3 ML VIAL SC PRN (12:02)
[2019-08-20] MEDS ORDERED: Ondansetron ODT 4 MG TAB PO PRN (13:55)
[2019-08-20] MEDS ORDERED: Ketorolac Tromethamine 30 MG/ML VIAL IVP SCH (14:00)
[2019-08-20] MEDS: Ondansetron PF 4 MG/2 ML Vial IVP PRN ×2 (14:15→23:07)
--- NOTE | 2019-08-20 17:01 | ULT ---
EXAM: Bilateral lower extremity venous Doppler HISTORY: Impaired mobility. Hypotension of unclear etiology. FINDINGS: Grayscale, color-flow, Doppler evaluation, spectral analysis of the bilateral lower extremities venou s structures is performed with 2-D imaging. The bilateral common femoral, superficial femoral, popliteal, posterior tibial, proximal greater saphenous and profunda femoral veins are imaged. There is normal luminal compressibility, flow, and augmentation in the visualized deep venous structu res of the bilateral lower extremities. Mildly prominent bilateral inguinal lymph nodes are seen bilaterally measuring 3.8 cm x 1.2 cm on the left and 2.2 cm x 0.7 cm on the right. IMPRESSION: 1. No evidence of a deep vein thrombosis in the visualized deep venous structures bilateral lower ext remities. 2. Mildly prominent lymph node left inguinal region.
--- NOTE | 2019-08-20 17:47 | CON ---
DATE OF CONSULTATION: 08/20/2019 REASON FOR CONSULTATION: Leukocytosis, worsening renal function, hypotension. HISTORY OF PRESENT ILLNESS: A 49-year-old whom I had seen many times in the recent past for complications related to type 2 diabetes mellitus and neuropathy. The last visit was at the end of July 2019 when she presented with a history of type 2 diabetes, neuropathy, prior amputations, injury to the right heel while walking barefooted and inflammatory changes of the left first toe associated with ulcerated area at the bottom aspect of the proximal phalanx skin site associated with chills. The evaluation indicated that there was evidence of osteomyelitis. This included an MRI of the left foot with extensive cellulitis of the forefoot, left side, and osteomyelitis of the great toe distal phalanx, 2nd digit metatarsal ray amputation and 3rd digit amputation as well. The distal aspect of the cuboid is somewhat suspicious. She underwent surgical procedure by Dr. Vega on July 31, which consisted of amputation of left great toe metatarsal wound left open for secondary intention healing, pulse irrigation and negative pressure dressing. The pathology of the specimen indicated ischemic ulceration with gangrene, osteomyelitis. The soft tissue resection margin appeared to be involved by the inflammatory process. The patient was transitioned to Rocephin, oral Flagyl and Diflucan for 6 weeks with a PICC line and she was receiving treatment downstairs in the oncology area. The microbiology indicated methicillin sensitive Staph aureus, group B strep, Chanel albicans and another mold species. After discharge, her white cell count down to 9.8, but then went up to 18,000 and kept hovering around 14 to 17. Also, the creatinine went up from 0.75 to 1.7 and then down to 1.4. I was contacted by the nurse at the oncology infusion area with the changes and we decided to refer patient for admission. She was hypotensive as well in the oncology area. In the emergency room, she also reported an episode of fall, which was probably related to her hypotension. She had some blurred vision, some diarrhea, which is somewhat of a chronic problem. No headaches. No visual symptoms other than the chronic ones related to diabetic retinopathy. No sore throat, odynophagia, dysphagia. No dyspnea or chest pain. No abdominal pain. No genitourinary symptoms. PAST MEDICAL HISTORY: Type 2 diabetes, neuropathy, obesity, hyperlipidemia, puncture wounds in right and left feet with prior ray amputations 2nd and 3rd toes, left kidney abscess with MSSA bacteremia in the past which resolved, right heel puncture wound with abscess but not osteomyelitis on repeat MRI. She had a cast placed by Francine Menjivar, [facility] [place]. SOCIAL HISTORY: Never smoker, lives in [place], . ALLERGIES: IODINE. FAMILY HISTORY: Type 2 diabetes. MEDICATIONS: Medication list at the moment: 1. Ceftriaxone. 2. Fluconazole. 3. Metronidazole. 4. Ondansetron. 5. IV fluids. 6. Insulin. PHYSICAL EXAMINATION: VITAL SIGNS: After admission, the temperature has remained within normal limits and blood pressure is up now to 160/68, pulse 74, respirations 15, O2 saturation 99. SKIN: Exam shows the left foot wound with pretty much 100% granulation at the base of the wound. The wound is still quite deep at the amputation site and the right foot has a cast and needs to be removed for us to review the area. She is having pain in the right foot and we need to make sure that there are no areas of skin inflammatory change or skin breakdown. The PICC line appears within normal limits. She has no lymphadenopathy. HEENT: Ocular movements conjugate. Oral cavity normal. NECK: Supple. LUNGS: Symmetric with clear breath sounds. HEART: S1 and S2, regular rate. No S3 or S4. ABDOMEN: Soft, not distended or tender. No ascites. No bladder distention. EXTREMITIES: No other joint inflammatory activity. Pulses are 2+ in dorsalis pedis. Cap refill is normal. NEURO: Examination nonfocal including cognitive function. LABORATORY STUDIES: White cell count is down to 10.6, hemoglobin 10.8, platelets 274. Sodium 138, creatinine 0.98, potassium 3.3. Liver profile was normal. Alkaline phosphatase, however, was elevated at 113. Troponin was normal. Albumin 3.6. Urinalysis within normal limits. Microbiology, we have no microbiology tests ordered. She had a brain CT, which was not remarkable. ASSESSMENT: 1. Type 2 diabetes and neuropathy, and prior amputations. 2. Recent amputation of the left first toe with compromised margin and discharge on Rocephin, Flagyl, and Diflucan. 3. Evidence of worsening renal function, hypotension, and neutrophilia of unclear etiology at this point in time. The differential diagnosis includes PICC line colonization with bacteremia. The foot on the left side appears to be well but the one on the right needs to be evaluated and the cast has to be removed. We will consult Orthopedic Surgery for that. There is no evidence of intraabdominal inflammatory process. She does have diarrhea, so we will have to check her C difficile screen. Thromboembolism would be another concern. We will check venous duplex ultrasound of lower extremities. Adrenal insufficiency appears to be less likely. Job ID: [id number]
--- NOTE | 2019-08-20 18:45 | CON ---
DATE OF CONSULTATION: This is Marnie Lewis PA-C dictating a report for Marcelo Louise MD. We were asked by Dr. Phillips to remove the patient's right lower extremity cast. This was done with the cast saw. There was a fiberglass cast removed that was overlying a plaster cast that was then removed. Wound dressings underneath. No complications were incurred. The patient tolerated the procedure well. Following the procedure, nursing staff was asked to contact Dr. Phillips to notify him that the cast had been removed. Job ID: [id number]
[2019-08-20] MEDS: Loperamide HCl 2 MG CAP PO PRN ×2 (21:30→23:12)
[2019-08-20] MEDS: cefTRIAXone\\ROCEPHIN 1 GM in Sodium Chloride 0.9% 100 ML IVPB SCH (21:37)
[2019-08-20] MEDS ORDERED: Dicyclomine 10 MG CAP PO SCH (23:30)
[2019-08-21] MEDS: Loperamide HCl 2 MG CAP PO PRN ×6 (01:52→17:04)
[2019-08-21] MEDS ORDERED: Ketorolac Tromethamine 30 MG/ML VIAL IVP SCH (03:30)
[2019-08-21] MEDS: HYDROcodone/Acetaminophen 5/325 mg Tablet PO PRN ×2 (04:29→09:06)
[2019-08-21 05:05] LABS: #Basophils 0.1 thou/uL (0.0-0.2); #Eosinphils 0.5 thou/uL (0.0-0.7); #Lymphocytes 1.9 thou/uL (1.20-3.40); #Monocytes 0.8 thou/uL (0.11-0.59); #Neutrophils 10.5 thou/uL (1.40-6.50); %Basophils 0.4 % (0.0-1.0); %Eosinophils 3.6 % (0.0-10.0); %Lymphocytes 14.1 % (21.0-51.0); %Monocytes 5.4 % (0.0-10.0); %Neutrophils 76.5 % (42.0-75.0); Hemoglobin 11.1 g/dL (12.0-16.0); Mean Corpuscular HGB CONC 32.4 g/dL (32.0-36.0); Mean Corpuscular Hemoglobin 26.7 pg (27.0-31.0); Mean Corpuscular Volume 82.6 fL (78.0-98.0); Mean Platelet Volume 8.6 fL (7.4-10.4); Platelet Count 267 thou/uL (130-400); RBC Distribution Width 14.4 % (11.5-14.5); Red Blood Cell (RBC) Count 4.15 mill/uL (4.20-5.40); White Blood Cell (WBC) Count 13.8 thou/uL (4.8-10.8)
[2019-08-21 05:26] LABS: Anion Gap 11 mmol/L (10-20); BUN (Urea Nitrogen) 17 mg/dL (7.0-18.7); Calc. Creatinine Clearance 113 mL/min (70-130); Calcium 8.3 mg/dL (7.8-10.44); Carbon Dioxide 26 mmol/L (22-29); Chloride 106 mmol/L (98-107); Estimated GFR-MDRD 63; Glucose 178 mg/dL (70-105); Potassium 3.9 mmol/L (3.5-5.1); Sodium 139 mmol/L (136-145)
[2019-08-21] MEDS: Sodium Chloride 0.9% 1,000 ML IV SCH ×2 (09:05→13:11)
[2019-08-21] MEDS: Gabapentin 300 MG CAP PO SCH ×2 (09:06→21:04)
[2019-08-21] MEDS: Enoxaparin Sodium 40 MG/0.4 ML SYRINGE SC SCH (09:06)
[2019-08-21] MEDS: Famotidine 20 MG TAB PO SCH ×2 (09:06→21:03)
[2019-08-21] MEDS: HumuLIN 70/30 (300 UNITS/3 ML VIAL) SC SCH ×2 (09:06→21:05)
[2019-08-21] MEDS: metroNIDAZOLE 500 MG TAB PO SCH ×3 (09:07→21:04)
[2019-08-21] MEDS: Fluconazole 100 MG TAB PO SCH (09:07)
[2019-08-21] MEDS: Meclizine HCl 12.5 MG TAB PO PRN ×2 (11:11→22:20)
[2019-08-21] MEDS ORDERED: Sodium Chloride 0.9% (PF) 10 ML VIAL FS PRN (12:41)
[2019-08-21] MEDS ORDERED: Pantoprazole 40 MG VIAL IVP SCH (12:45)
[2019-08-21] MEDS ORDERED: Sodium Chloride 0.9% 1,000 ML IV SCH ×2 (12:45→13:00)
[2019-08-21 14:39] VITALS: BMI 40.6
--- NOTE | 2019-08-21 16:01 | PDOC.HOSPP ---
- Subjective Encounter Date: 08/21/19 Encounter Time: 10:00 Subjective: pt up in bed has multiple complains. - Objective Vital Signs & Weight: Vital Signs (12 hours) Temp Pulse Resp BP BP Pulse Ox 08/21/19 11:29 97.7 F 78 18 114/59 L 100 08/21/19 07:55 98 08/21/19 07:37 98.4 F 76 16 97/53 L 140/63 98 Weight Admit Weight 212 lb 11.937 oz Weight 214 lb 11.684 oz I&O: 08/20/19 08/21/19 08/22/19 06:59 06:59 06:59 Intake Total 360 3442 600 Output Total 1225 2100 Balance -865 1342 600 Result Diagrams: 08/21/19 04:48 08/21/19 04:48 Additional Labs: Accuchecks 08/21/19 08/21/19 08/20/19 15:10 11:36 20:25 POC Glucose 59 L* 147 H 209 H 08/20/19 16:52 POC Glucose 152 H Hospitalist ROS - Review of Systems ENT: denies: ear pain, ear discharge, nose pain, nose discharge, nose congestion , mouth pain, mouth swelling, throat pain, throat swelling, other Respiratory: denies: cough, dry, shortness of breath, hemoptysis, SOB with excertion, pleuritic pain, sputum, wheezing, other Cardiovascular: reports: light headedness. denies: chest pain, palpitations, orthopnea, paroxysmal noc. dyspnea, edema, other Gastrointestinal: reports: diarrhea - Medication Medications: Active Medications Generic Name Dose Route Start Last Admin Trade Name Freq PRN Reason Stop Dose Admin Acetaminophen 650 mg 08/19/19 17:49 08/20/19 06:51 Tylenol PO 650 mg Q4H PRN Administration Headache/Fever/Mild Pain (1-3) Hydrocodone Bitart/Acetaminophen 1 tab 08/19/19 17:49 08/21/19 09:06 [place] 5/325 PO 1 tab Q4H PRN Administration Moderate Pain (4-6) Enoxaparin Sodium 40 mg 08/20/19 09:00 08/21/19 09:06 Lovenox SC 40 mg 0900 BOGDAN Administration Famotidine 20 mg 08/19/19 21:00 08/21/19 09:06 Pepcid PO 20 mg BID BOGDAN Administration Fluconazole 400 mg 08/20/19 09:00 08/21/19 09:07 Diflucan PO 400 mg DAILY BOGDAN Administration Gabapentin 300 mg 08/20/19 09:00 08/21/19 09:06 Neurontin PO 300 mg BID BOGDAN Administration Ceftriaxone Sodium 1 gm/ 100 mls @ 200 mls/hr 08/19/19 21:00 08/20/19 21:37 Sodium Chloride IVPB 100 mls 2100 BOGDAN Administration Sodium Chloride 1,000 mls @ 100 mls/hr 08/21/19 13:00 08/21/19 13:11 Normal Saline 0.9% IV 1,000 mls .Q10H BOGDAN Administration Insulin Human Isoph/Insulin Regular 40 units 08/19/19 21:00 08/20/19 21:38 Humulin 70/30 SC Not Given QPM [facility] Insulin Human Isoph/Insulin Regular 60 units 08/20/19 09:00 08/21/19 09:06 Humulin 70/30 SC 60 unit QAM BODGAN Administration Insulin Human Regular 0 units 08/19/19 17:49 08/20/19 12:02 Humulin R SC 3 unit .AGGRESSIVE SLIDING PRN Administration Aggressive Correctional Scale Loperamide HCl 2 mg 08/19/19 17:49 08/21/19 14:44 Imodium PO 2 mg PRN PRN Administration Diarrhea/Loose Stools Meclizine HCl 12.5 mg 08/19/19 17:49 08/21/19 11:11 Antivert PO 12.5 mg TIDPRN PRN Administration Dizziness Metronidazole 500 mg 08/19/19 21:00 08/21/19 13:10 Flagyl PO 500 mg TID BOGDAN Administration Ondansetron HCl 4 mg 08/20/19 13:55 08/20/19 23:07 Zofran IVP 4 mg Q6H PRN Administration Nausea/Vomiting Sodium Chloride 10 ml 08/20/19 09:00 08/21/19 09:08 Flush - Normal Saline IVF Not Given Q12HR [facility] - Exam Neck: negative: supple, symmetric, no JVD, no thyromegaly, no lymphadenopathy, no carotid bruit, JVD Heart: negative: RRR, no murmur, no gallops, no rubs, normal peripheral pulses, irregular, diminshed peripheral pulses, murmur present, II/IV, III/IV Respiratory: negative: CTAB, no wheezes, no rales, no ronchi, normal chest expansion, no tachypnea, normal percussion, rales, rhonchi, tachypneic, wheezes Gastrointestinal: negative: soft, non-tender, non-distended, normal bowel sounds , no palpable masses, no hepatomegaly, no splenomegaly, no bruit, no guarding, no rigidity, tender to palpation, distended, diminished bowl sounds, voluntary guarding Hosp A/P (1) Acute renal failure Status: Acute (2) Syncope Code(s): R55 - SYNCOPE AND COLLAPSE Status: Acute (3) Osteomyelitis of left foot Code(s): M86.9 - OSTEOMYELITIS, UNSPECIFIED Status: Chronic (4) Leukocytosis Code(s): D72.829 - ELEVATED WHITE BLOOD CELL COUNT, UNSPECIFIED Status: Resolved (5) Diabetic foot infection Code(s): E11.628 - TYPE 2 DIABETES MELLITUS WITH OTHER SKIN COMPLICATIONS; L08.9 - LOCAL INFECTION OF THE SKIN AND SUBCUTANEOUS TISSUE, UNSP Status: Acute (6) Anemia, normocytic normochromic Code(s): D64.9 - ANEMIA, UNSPECIFIED Status: Chronic - Plan pt has multiple complains. will get a tsh. she also states she has been having diarrhea for about a year now. will check stool studies. she also states that she has not been able to eat anything bc when she eats she has diarrhea. she also complains of pain to her epigastric area. will continue hydration. will get a echo. will continue current abx for now.
[2019-08-21] MEDS: cefTRIAXone\\ROCEPHIN 1 GM in Sodium Chloride 0.9% 100 ML IVPB SCH (21:02)
[2019-08-21] MEDS: Pantoprazole 40 MG VIAL IVP SCH (21:03)
[2019-08-21] MEDS: Acetaminophen 325 MG TAB PO PRN (21:04)
[2019-08-21] MEDS: Diphenoxylate HCl/Atropine Tablet PO PRN (22:20)
[2019-08-22] MEDS: Sodium Chloride 0.9% 1,000 ML IV SCH ×3 (08:20→20:04)
[2019-08-22] MEDS: Pantoprazole 40 MG VIAL IVP SCH ×2 (09:10→20:02)
[2019-08-22] MEDS: Fluconazole 100 MG TAB PO SCH (09:11)
[2019-08-22] MEDS: metroNIDAZOLE 500 MG TAB PO SCH ×3 (09:11→20:00)
[2019-08-22] MEDS: Enoxaparin Sodium 40 MG/0.4 ML SYRINGE SC SCH (09:11)
[2019-08-22] MEDS: Gabapentin 300 MG CAP PO SCH ×2 (09:11→20:00)
[2019-08-22] MEDS: Famotidine 20 MG TAB PO SCH ×2 (09:11→19:59)
[2019-08-22] MEDS: HumuLIN 70/30 (300 UNITS/3 ML VIAL) SC SCH ×2 (09:53→20:03)
[2019-08-22] MEDS: HYDROcodone/Acetaminophen 5/325 mg Tablet PO PRN ×2 (10:16→20:00)
[2019-08-22] MEDS: Saccharomyces boulardii 250 MG CAP PO SCH (10:16)
[2019-08-22] MEDS: Insulin Regular 300 UNITS/3 ML VIAL SC PRN ×2 (12:33→18:13)
[2019-08-22] MEDS: Loperamide HCl 2 MG CAP PO PRN (12:40)
--- NOTE | 2019-08-22 14:04 | PDOC.HOSPP ---
- Subjective Encounter Date: 08/22/19 Encounter Time: 10:30 Subjective: pt up in bed feels better today. - Objective Vital Signs & Weight: Vital Signs (12 hours) Temp Pulse Resp BP BP Pulse Ox 08/22/19 12:00 98.3 F 73 16 125/59 L 08/22/19 08:00 98.1 F 72 16 108/54 L 98 08/22/19 03:42 98.2 F 69 14 148/72 H 98 Weight Admit Weight 212 lb 11.937 oz Weight 214 lb 11.684 oz I&O: 08/21/19 08/22/19 08/23/19 06:59 06:59 06:59 Intake Total 3442 2859 400 Output Total 2100 300 Balance 1342 2559 400 Result Diagrams: 08/21/19 04:48 08/21/19 04:48 Additional Labs: Accuchecks 08/22/19 08/22/19 08/21/19 11:06 05:28 20:39 POC Glucose 184 H 106 125 H 08/21/19 08/21/19 08/21/19 16:34 15:58 15:10 POC Glucose 92 77 59 L* Hospitalist ROS - Review of Systems Respiratory: denies: cough, dry, shortness of breath, hemoptysis, SOB with excertion, pleuritic pain, sputum, wheezing, other Cardiovascular: denies: chest pain, palpitations, orthopnea, paroxysmal noc. dyspnea, edema, light headedness, other Gastrointestinal: denies: nausea, vomiting, abdominal pain, diarrhea, constipation, melena, hematochezia, other - Medication Medications: Active Medications Generic Name Dose Route Start Last Admin Trade Name Freq PRN Reason Stop Dose Admin Acetaminophen 650 mg 08/19/19 17:49 08/21/19 21:04 Tylenol PO 650 mg Q4H PRN Administration Headache/Fever/Mild Pain (1-3) Hydrocodone Bitart/Acetaminophen 1 tab 08/19/19 17:49 08/22/19 10:16 [place] 5/325 PO 1 tab Q4H PRN Administration Moderate Pain (4-6) Diphenoxylate HCl/Atropine 1 tab 08/21/19 21:34 08/21/19 22:20 Lomotil PO 1 tab Q6H PRN Administration Diarrhea/Loose Stools Enoxaparin Sodium 40 mg 08/20/19 09:00 08/22/19 09:11 Lovenox SC 40 mg 0900 BOGDAN Administration Famotidine 20 mg 08/19/19 21:00 08/22/19 09:11 Pepcid PO 20 mg BID BOGDAN Administration Fluconazole 400 mg 08/20/19 09:00 08/22/19 09:11 Diflucan PO 400 mg DAILY BOGDAN Administration Gabapentin 300 mg 08/20/19 09:00 08/22/19 09:11 Neurontin PO 300 mg BID BOGDAN Administration Ceftriaxone Sodium 1 gm/ 100 mls @ 200 mls/hr 08/19/19 21:00 08/21/19 21:02 Sodium Chloride IVPB 100 mls 2100 BOGDAN Administration Sodium Chloride 1,000 mls @ 100 mls/hr 08/21/19 13:00 08/22/19 09:13 Normal Saline 0.9% IV 1,000 mls .Q10H BOGDAN Administration Insulin Human Isoph/Insulin Regular 40 units 08/19/19 21:00 08/21/19 21:05 Humulin 70/30 SC Not Given QPM [facility] Insulin Human Isoph/Insulin Regular 60 units 08/20/19 09:00 08/22/19 09:53 Humulin 70/30 SC Not Given QAM [facility] Insulin Human Regular 0 units 08/19/19 17:49 08/22/19 12:33 Humulin R SC 3 unit .AGGRESSIVE SLIDING PRN Administration Aggressive Correctional Scale Loperamide HCl 2 mg 08/19/19 17:49 08/22/19 12:40 Imodium PO 2 mg PRN PRN Administration Diarrhea/Loose Stools Meclizine HCl 12.5 mg 08/19/19 17:49 08/21/19 22:20 Antivert PO 12.5 mg TIDPRN PRN Administration Dizziness Metronidazole 500 mg 08/19/19 21:00 08/22/19 09:11 Flagyl PO 500 mg TID BOGDAN Administration Ondansetron HCl 4 mg 08/20/19 13:55 08/20/19 23:07 Zofran IVP 4 mg Q6H PRN Administration Nausea/Vomiting Pantoprazole Sodium 40 mg 08/21/19 21:00 08/22/19 09:10 Protonix IVP 40 mg BID BOGDAN Administration Saccharomyces Boulardii 250 mg 08/22/19 09:00 08/22/19 10:16 Florastor PO 250 mg DAILY BOGDAN Administration Sodium Chloride 10 ml 08/20/19 09:00 08/22/19 09:13 Flush - Normal Saline IVF 10 ml Q12HR BOGDAN Administration - Exam Neck: negative: supple, symmetric, no JVD, no thyromegaly, no lymphadenopathy, no carotid bruit, JVD Heart: negative: RRR, no murmur, no gallops, no rubs, normal peripheral pulses, irregular, diminshed peripheral pulses, murmur present, II/IV, III/IV Respiratory: negative: CTAB, no wheezes, no rales, no ronchi, normal chest expansion, no tachypnea, normal percussion, rales, rhonchi, tachypneic, wheezes Gastrointestinal: negative: soft, non-tender, non-distended, normal bowel sounds , no palpable masses, no hepatomegaly, no splenomegaly, no bruit, no guarding, no rigidity, tender to palpation, distended, diminished bowl sounds, voluntary guarding Hosp A/P (1) Acute renal failure Status: Acute (2) Syncope Code(s): R55 - SYNCOPE AND COLLAPSE Status: Acute (3) Osteomyelitis of left foot Code(s): M86.9 - OSTEOMYELITIS, UNSPECIFIED Status: Chronic (4) Leukocytosis Code(s): D72.829 - ELEVATED WHITE BLOOD CELL COUNT, UNSPECIFIED Status: Resolved (5) Diabetic foot infection Code(s): E11.628 - TYPE 2 DIABETES MELLITUS WITH OTHER SKIN COMPLICATIONS; L08.9 - LOCAL INFECTION OF THE SKIN AND SUBCUTANEOUS TISSUE, UNSP Status: Acute (6) Anemia, normocytic normochromic Code(s): D64.9 - ANEMIA, UNSPECIFIED Status: Chronic - Plan pt has multiple complains. will get a tsh. she also states she has been having diarrhea for about a year now. will check stool studies. she also states that she has not been able to eat anything bc when she eats she has diarrhea. she also complains of pain to her epigastric area. will continue hydration. will get a echo. will continue current abx for now. 08/22 pt is still having diarrhea. This is chronic diarrhea. her stool studies were negative but she has elevated wbc in her stool. she has no insurance and has not been able to see GI as outpatient. Tsh is normal. She continues to have dizziness and she states that she feels unsteady. given her hx of dm and htn will get a MRI brain to rule out stroke. she tolerated lomtil and feels that has helped her diarrhea.
[2019-08-22] MEDS: Diphenoxylate HCl/Atropine Tablet PO PRN (15:16)
[2019-08-22] MEDS: cefTRIAXone\\ROCEPHIN 1 GM in Sodium Chloride 0.9% 100 ML IVPB SCH (19:58)
--- NOTE | 2019-08-22 21:56 | CON ---
DATE OF CONSULTATION: 08/22/2019 REQUESTING PHYSICIAN: Dr. Ortiz. REASON FOR CONSULTATION: Chronic diarrhea. HISTORY OF PRESENT ILLNESS: Jeanne Olson is a very pleasant 49-year-old woman with a history of diabetes and neuropathy. She has had a recent history of chronic nonhealing lower extremity wounds. She recently underwent a partial amputation of the left foot. She is being treated for osteomyelitis with outpatient extended IV antibiotics including Rocephin and fluconazole as well as oral Flagyl. She reports she has been taking antibiotics off and on at least for the past 6 months or so. She was admitted to the hospital 3 days ago after a syncopal episode, was found to be hypotensive and dizzy with leukocytosis and some degree of acute renal failure on admission with creatinine up to 1.4. She has done well over the past few days with IV fluid rehydration. Renal failure has improved. She was continued on antibiotics, but she has this complaint of chronic diarrhea. She says this has been going on for at least the past year, even before she started receiving all these antibiotics. She reports the diarrhea is quite severe. She says after every meal, she will have 5 or 6 repeated trips to the restroom to pass loose or watery brown or yellow colored bowel movements. There is always an urgency to this, and in fact, she has had several accidents. There is no melena or hematochezia. There is no pain associated with the diarrhea itself. She denies any weight loss. She does say that she will occasionally have postprandial epigastric discomfort as well, though she does not relate this particularly to the diarrhea. She has tried Imodium as an outpatient and says this does help, but only somewhat. She has received Lomotil here, and this also did seem to help significantly. She has never undergone EGD or colonoscopy. There is no known family history of inflammatory bowel disease or GI malignancy. Stool studies had shown elevated fecal lactoferrin, but otherwise negative Clostridium difficile, negative stool culture. REVIEW OF SYSTEMS: Full review of systems including constitutional, head, eyes, ears, nose, throat, GI, , cardiovascular, respiratory, musculoskeletal, or neurologic systems is negative except as noted in the HPI. PAST MEDICAL HISTORY: Diabetes with neuropathy, osteomyelitis, partial amputation of left lower extremity, obesity, hyperlipidemia, and renal abscess. ALLERGIES: IODINE. OUTPATIENT MEDICATIONS: 1. Ceftriaxone IV. 2. Fluconazole IV. 3. Oral Flagyl. 4. Zofran p.r.n. 5. Insulin. SOCIAL HISTORY: No smoking. FAMILY HISTORY: Negative for GI malignancy or inflammatory bowel disease. PHYSICAL EXAMINATION: VITAL SIGNS: Temperature 98.3, pulse 73, blood pressure 125/59, and 98% oxygen saturation on room air. GENERAL: A 49-year-old woman, sitting up in bed, comfortably, in no acute distress. SKIN: No jaundice. No rashes were palpable. HEENT: Eyes, no scleral icterus. Extraocular movements intact. ENT, mucous membranes moist. No oral lesions. LYMPH: No submandibular or supraclavicular lymphadenopathy. Thyroid, nontender to palpation. HEART: Regular rate and rhythm. LUNGS: Clear to auscultation bilaterally. ABDOMEN: Nondistended. Bowel sounds present. Soft. Tender to palpation in the epigastrium, but no guarding or rebound tenderness. No significant tenderness to palpation anywhere else. No masses or organomegaly appreciated. EXTREMITIES: No peripheral edema. She is status post partial amputation of the left foot. NEUROLOGIC: Cranial nerves 2 through 12 intact bilaterally. LABORATORY STUDIES: WBC 13.8, hemoglobin 11.1, MCV 82.6, and platelets 267. Urinalysis negative. Sodium 139, potassium 3.9, BUN 17, creatinine 0.95, glucose 184, calcium 8.3, TSH 1.59, and CRP elevated to 5.41. Lactic acid 1.3. Troponin negative. LFTs all normal with total bilirubin of 0.4, alkaline phosphatase 113, AST 25, ALT 22, and albumin 3.6. Stool studies show elevation in fecal lactoferrin, otherwise stool culture just shows normal enteric enrike, negative for Campylobacter and Shiga toxin, negative Clostridium difficile antigen and toxin. ASSESSMENT AND PLAN: 1. Chronic diarrhea. 2. Epigastric pain. Symptoms have been going on for the past year, which she says started well before all of this antibiotic therapy in recent months. However, at this point, I do wonder if she is probably just developed significant gut microbial imbalance as a result of all the recent antibiotics. She was started on Florastor here, and I think this should be continued. I do note the elevated fecal lactoferrin with otherwise unrevealing stool studies. So, we do need to consider the possibility of inflammatory bowel disease. I will order stool ova and parasite examination as well. We will plan for diagnostic EGD and colonoscopy with plan for duodenal and colon biopsies. We will have the patient on a clear liquid diet tomorrow, with bowel preparation tomorrow evening, in anticipation of EGD and colonoscopy the following day. The patient understands and agrees with the plan. Thank you for the consultation. Please call anytime with questions or concerns. Job ID: [id number]
[2019-08-23] MEDS: HYDROcodone/Acetaminophen 5/325 mg Tablet PO PRN ×2 (02:24→23:37)
[2019-08-23] MEDS: Sodium Chloride 0.9% 1,000 ML IV SCH ×2 (04:20→17:41)
[2019-08-23] MEDS: Loperamide HCl 2 MG CAP PO PRN (04:21)
[2019-08-23] MEDS ORDERED: Lisinopril 10 MG TAB PO SCH (09:00)
[2019-08-23] MEDS: HumuLIN 70/30 (300 UNITS/3 ML VIAL) SC SCH ×2 (09:18→23:25)
[2019-08-23] MEDS: Enoxaparin Sodium 40 MG/0.4 ML SYRINGE SC SCH (09:22)
[2019-08-23] MEDS: Famotidine 20 MG TAB PO SCH (09:23)
[2019-08-23] MEDS: metroNIDAZOLE 500 MG TAB PO SCH ×3 (09:23→22:13)
[2019-08-23] MEDS: Gabapentin 300 MG CAP PO SCH ×2 (09:23→22:14)
[2019-08-23] MEDS: Fluconazole 100 MG TAB PO SCH (09:23)
[2019-08-23] MEDS: Metoclopramide HCl 10 MG/2 ML VIAL IVP PRN ×2 (09:24→17:43)
[2019-08-23] MEDS: Saccharomyces boulardii 250 MG CAP PO SCH (09:24)
[2019-08-23] MEDS: Pantoprazole 40 MG VIAL IVP SCH ×2 (09:29→22:14)
--- NOTE | 2019-08-23 09:33 | PRG ---
DATE OF SERVICE: 08/23/2019 SUBJECTIVE: Ms. Olson is having a little bit more epigastric discomfort today. There is no nausea or vomiting. She did have several bowel movements overnight again, nonbloody. OBJECTIVE: VITAL SIGNS: Temperature 98.0, pulse 79, blood pressure 171/73, 97% oxygen saturation on room air. GENERAL: No acute distress. HEART: Regular rate and rhythm. LUNGS: Clear to auscultation bilaterally. ABDOMEN: Bowel sounds are present. Soft. Tender to palpation in the epigastrium. No guarding or rebound tenderness. EXTREMITIES: No peripheral edema. LABORATORY STUDIES: WBC 13.8, hemoglobin 11.1, platelets 267. Glucose 186. Rapid parasite screen stool was negative for Giardia, negative for Cryptosporidium. No fecal lactoferrin is elevated. C difficile and stool culture are negative. ASSESSMENT AND PLAN: 1. Chronic diarrhea. 2. Epigastric pain. 3. Elevated fecal lactoferrin, with otherwise negative stool studies for infectious agents. We are going to stick with the plan for EGD and colonoscopy tomorrow, administer bowel preparation this evening. I discussed this again with the patient. She desires to proceed. Further recommendations following endoscopy tomorrow. Job ID: [id number]
[2019-08-23] MEDS ORDERED: Lorazepam 2 MG/ML VIAL SLOW IVP SCH (09:45)
[2019-08-23] MEDS ORDERED: GoLYTELY 4,000 ml Bottle PO SCH (10:00)
[2019-08-23] MEDS: Insulin Regular 300 UNITS/3 ML VIAL SC PRN ×2 (12:35→17:47)
--- NOTE | 2019-08-23 13:01 | PDOC.HOSPP ---
- Subjective Encounter Date: 08/23/19 Encounter Time: 11:30 Subjective: pt up in bed no feels nauseated. - Objective Vital Signs & Weight: Vital Signs (12 hours) Temp Pulse Resp BP BP BP Pulse Ox 08/23/19 11:25 98.2 F 77 18 150/66 H 97 08/23/19 10:54 135/61 08/23/19 10:52 75 135/61 08/23/19 08:10 98.9 F 73 18 142/64 H 97 08/23/19 04:00 98.0 F 79 16 171/73 H 97 Weight Admit Weight 212 lb 11.937 oz Weight 214 lb 11.684 oz I&O: 08/22/19 08/23/19 08/24/19 06:59 06:59 06:59 Intake Total 2859 3660 120 Output Total 300 Balance 2559 3660 120 Result Diagrams: 08/21/19 04:48 08/21/19 04:48 Additional Labs: Accuchecks 08/23/19 08/23/19 08/22/19 11:21 04:11 20:40 POC Glucose 226 H 186 H 221 H 08/22/19 17:32 POC Glucose 200 H Hospitalist ROS - Review of Systems Respiratory: denies: cough, dry, shortness of breath, hemoptysis, SOB with excertion, pleuritic pain, sputum, wheezing, other Cardiovascular: reports: light headedness. denies: chest pain, palpitations, orthopnea, paroxysmal noc. dyspnea, edema, other Gastrointestinal: reports: nausea, vomiting Genitourinary: denies: dysuria, frequency, incontinence, hematuria, retention, other Musculoskeletal: denies: neck pain, shoulder pain, arm pain, back pain, hand pain, leg pain, foot pain, other - Medication Medications: Active Medications Generic Name Dose Route Start Last Admin Trade Name Freq PRN Reason Stop Dose Admin Acetaminophen 650 mg 08/19/19 17:49 08/21/19 21:04 Tylenol PO 650 mg Q4H PRN Administration Headache/Fever/Mild Pain (1-3) Hydrocodone Bitart/Acetaminophen 1 tab 08/19/19 17:49 08/23/19 02:24 [place] 5/325 PO 1 tab Q4H PRN Administration Moderate Pain (4-6) Enoxaparin Sodium 40 mg 08/20/19 09:00 08/23/19 09:22 Lovenox SC 40 mg 0900 BOGDAN Administration Famotidine 20 mg 08/19/19 21:00 08/23/19 09:23 Pepcid PO 20 mg BID BOGDAN Administration Fluconazole 400 mg 08/20/19 09:00 08/23/19 09:23 Diflucan PO 400 mg DAILY BOGDAN Administration Gabapentin 300 mg 08/20/19 09:00 08/23/19 09:23 Neurontin PO 300 mg BID BOGDAN Administration Ceftriaxone Sodium 1 gm/ 100 mls @ 200 mls/hr 08/19/19 21:00 08/22/19 19:58 Sodium Chloride IVPB 100 mls 2100 BOGDAN Administration Sodium Chloride 1,000 mls @ 100 mls/hr 08/21/19 13:00 08/23/19 04:20 Normal Saline 0.9% IV 1,000 mls .Q10H BOGDAN Administration Insulin Human Isoph/Insulin Regular 40 units 08/19/19 21:00 08/22/19 20:03 Humulin 70/30 SC Not Given QPM BOGDAN Insulin Human Isoph/Insulin Regular 60 units 08/20/19 09:00 08/23/19 09:18 Humulin 70/30 SC Not Given QAM BOGDAN Insulin Human Regular 0 units 08/19/19 17:49 08/23/19 12:35 Humulin R SC 6 unit .AGGRESSIVE SLIDING PRN Administration Aggressive Correctional Scale Insulin Human Regular 0 units 08/19/19 17:49 08/22/19 23:06 Humulin R SC 2 unit .BEDTIME SLIDING SC PRN Administration Bedtime Correctional Scale Lisinopril 10 mg 08/23/19 09:00 08/23/19 10:54 Zestril PO 10 mg DAILY BOGDAN Administration Loperamide HCl 2 mg 08/19/19 17:49 08/23/19 04:21 Imodium PO 2 mg PRN PRN Administration Diarrhea/Loose Stools Meclizine HCl 12.5 mg 08/19/19 17:49 08/21/19 22:20 Antivert PO 12.5 mg TIDPRN PRN Administration Dizziness Metoclopramide HCl 5 mg 08/19/19 17:49 08/23/19 09:24 Reglan IVP 5 mg Q6H PRN Administration Nausea/Vomiting Metronidazole 500 mg 08/19/19 21:00 08/23/19 09:23 Flagyl PO 500 mg TID BOGDAN Administration Ondansetron HCl 4 mg 08/20/19 13:55 08/23/19 06:29 Zofran Odt PO 4 mg Q6H PRN Administration Nausea/Vomiting Ondansetron HCl 4 mg 08/20/19 13:55 08/20/19 23:07 Zofran IVP 4 mg Q6H PRN Administration Nausea/Vomiting Pantoprazole Sodium 40 mg 08/21/19 21:00 08/23/19 09:29 Protonix IVP 40 mg BID BOGDAN Administration Saccharomyces Boulardii 250 mg 08/22/19 09:00 08/23/19 09:24 Florastor PO 250 mg DAILY BOGDAN Administration Sodium Chloride 10 ml 08/20/19 09:00 08/23/19 09:21 Flush - Normal Saline IVF Not Given Q12HR BOGDAN Sodium Chloride 10 ml 08/20/19 08:19 08/23/19 12:31 Flush - Normal Saline IVF 10 ml PRN PRN Administration Saline Flush - Exam Neck: negative: supple, symmetric, no JVD, no thyromegaly, no lymphadenopathy, no carotid bruit, JVD Heart: negative: RRR, no murmur, no gallops, no rubs, normal peripheral pulses, irregular, diminshed peripheral pulses, murmur present, II/IV, III/IV Respiratory: negative: CTAB, no wheezes, no rales, no ronchi, normal chest expansion, no tachypnea, normal percussion, rales, rhonchi, tachypneic, wheezes Gastrointestinal: soft, normal bowel sounds Gastrointestinal - other findings: mild pain on palpation to epigastric area Hosp A/P (1) Acute renal failure Status: Acute (2) Syncope Code(s): R55 - SYNCOPE AND COLLAPSE Status: Acute (3) Osteomyelitis of left foot Code(s): M86.9 - OSTEOMYELITIS, UNSPECIFIED Status: Chronic (4) Leukocytosis Code(s): D72.829 - ELEVATED WHITE BLOOD CELL COUNT, UNSPECIFIED Status: Resolved (5) Diabetic foot infection Code(s): E11.628 - TYPE 2 DIABETES MELLITUS WITH OTHER SKIN COMPLICATIONS; L08.9 - LOCAL INFECTION OF THE SKIN AND SUBCUTANEOUS TISSUE, UNSP Status: Acute (6) Anemia, normocytic normochromic Code(s): D64.9 - ANEMIA, UNSPECIFIED Status: Chronic - Plan pt has multiple complains. will get a tsh. she also states she has been having diarrhea for about a year now. will check stool studies. she also states that she has not been able to eat anything bc when she eats she has diarrhea. she also complains of pain to her epigastric area. will continue hydration. will get a echo. will continue current abx for now. 08/22 pt is still having diarrhea. This is chronic diarrhea. her stool studies were negative but she has elevated wbc in her stool. she has no insurance and has not been able to see GI as outpatient. Tsh is normal. She continues to have dizziness and she states that she feels unsteady. given her hx of dm and htn will get a MRI brain to rule out stroke. she tolerated lomtil and feels that has helped her diarrhea. 08/23 MRI pending, pt to undergo EGD and colonoscopy in am. will continue abx for now. Blood pressure a bit high will start pt on lisinopril.
--- NOTE | 2019-08-23 13:33 | MRI ---
MRI of thebrain without contrast: 08/23/2019 COMPARISON:None available HISTORY:Hypotension, dizziness, head trauma TECHNIQUE: Multiplanar multisequence MR imaging of thebrain without contrast Findings:The diffusion weighted imaging demonstrates no evidence for acute infarction. The axial grad ient echo imaging demonstrates no evidence for intracranial hemorrhage. Imaged paranasal sinuses and mastoid air cells unremarkable. Arterial flow voids at the axial level o f the skull base appear grossly unremarkable on the T2-weighted imaging. Regional bone marrow signal intensity appears within normal limits. IMPRESSION:Unremarkable noncontrast enhanced brain MRI.
[2019-08-23] MEDS: Ondansetron PF 4 MG/2 ML Vial IVP PRN (13:34)
[2019-08-23] MEDS: cefTRIAXone\\ROCEPHIN 1 GM in Sodium Chloride 0.9% 100 ML IVPB SCH (22:14)
[2019-08-24] MEDS: Sodium Chloride 0.9% 1,000 ML IV SCH ×2 (03:17→13:33)
[2019-08-24] MEDS ORDERED: Lisinopril 10 MG TAB PO SCH (07:32)
[2019-08-24] MEDS ORDERED: Fentanyl 100 MCG/2 ML VIAL ONE (07:49)
--- NOTE | 2019-08-24 09:42 | OP ---
DATE OF PROCEDURE: 08/24/2019 MANAGER MEDICARE SURGEON: None. PROCEDURES PERFORMED: 1. Esophagogastroduodenoscopy with biopsies. 2. Colonoscopy with snare polypectomy and biopsies. INDICATIONS: 1. Chronic diarrhea. 2. Epigastric pain. 3. Nausea and vomiting. MEDICATIONS: See Anesthesia record. FINDINGS: After discussion of the risks, benefits, and alternatives of the procedure, informed consent was obtained and witnessed. Pre-endoscopic cardiopulmonary examination was satisfactory. Time-out was performed before sedation was achieved. Sedation was achieved with Anesthesia assistance in the endoscopy unit. A Pentax adult upper endoscope was placed into the oropharynx and passed through the cricopharyngeus under direct visualization. The esophageal mucosa appeared normal throughout. The endoscope was advanced into the stomach. Forward and retroflexed views of the entire gastric mucosa were obtained. The gastric mucosa appeared normal. The endoscope was passed through the pylorus and into the first and second portions of the duodenum, which also appeared normal. Biopsies were obtained from the second portion of the duodenum to rule out celiac disease. The upper endoscope was completely withdrawn and the patient was repositioned. Digital rectal exam was performed, which was unremarkable. A Pentax adult colonoscope was inserted into the anus and passed forward to the cecum in the usual fashion. The cecal base was identified by the appendiceal orifice as well as the ileocecal valve. The terminal ileum was intubated and the ileal mucosa appeared normal. The colonoscope was slowly withdrawn in a gradual circumferential manner with careful examination of the entire colonic mucosa. The quality of the prep was adequate. There was some scattered diverticula throughout the colon. In the transverse colon, there were two small polyps measuring 2 to 3 mm in diameter. These were completely removed with cold snare and retrieved for pathology. The mucosa of the right colon, transverse colon, descending colon, and sigmoid colon appeared endoscopically normal. Random biopsies were obtained from the right and left side of the colon to rule out microscopic colitis. In the rectum, there is some patchy mild erythema and friability. Additional biopsies were obtained specifically from this area of mild proctitis. Retroflexion in the rectum demonstrated no additional abnormalities. The colonoscope was completely withdrawn and the patient allowed to recover. The patient tolerated the procedure well. There were no immediate postprocedure complications. IMPRESSION: 1. Normal esophagogastroduodenoscopy, with duodenal biopsies obtained to rule out celiac disease. 2. Mild patchy erythema and friability in the rectum, biopsied. 3. Otherwise normal colonic mucosa, with random biopsies obtained to rule out microscopic colitis. 4. Two small transverse colon polyps, completely removed with cold snare and retrieved for pathology. 5. Diverticulosis of the colon. RECOMMENDATIONS: 1. Follow up pathology on all biopsies. 2. We will go ahead and obtain a CT of the abdomen and pelvis, given this exam was really unrevealing with regard to the patient's abdominal pain and vomiting. 3. Repeat colonoscopy for surveillance in 5 years. Job ID: [id number]
[2019-08-24] MEDS ORDERED: PROPOFOL 200 MG/20 ML VIAL ONE (10:01)
[2019-08-24] MEDS: Saccharomyces boulardii 250 MG CAP PO SCH (11:43)
[2019-08-24] MEDS: Gabapentin 300 MG CAP PO SCH ×2 (11:43→21:39)
[2019-08-24] MEDS: metroNIDAZOLE 500 MG TAB PO SCH ×3 (11:43→21:39)
[2019-08-24] MEDS: Enoxaparin Sodium 40 MG/0.4 ML SYRINGE SC SCH (11:44)
[2019-08-24] MEDS: Lisinopril 20 MG TAB PO SCH (11:44)
[2019-08-24] MEDS: HumuLIN 70/30 (300 UNITS/3 ML VIAL) SC SCH ×2 (11:45→21:52)
[2019-08-24] MEDS: Pantoprazole 40 MG VIAL IVP SCH ×2 (11:46→21:40)
[2019-08-24] MEDS: Fluconazole 100 MG TAB PO SCH (11:54)
[2019-08-24] MEDS: Acetaminophen 325 MG TAB PO PRN (11:54)
[2019-08-24] MEDS ORDERED: Iopamidol 370 76% 100 ML VIAL ONE (13:53)
[2019-08-24] MEDS: Insulin Regular 300 UNITS/3 ML VIAL SC PRN ×2 (14:18→17:44)
--- NOTE | 2019-08-24 14:18 | PDOC.HOSPP ---
- Subjective Encounter Date: 08/24/19 Encounter Time: 10:15 Subjective: pt up in bed feels well today. - Objective Vital Signs & Weight: Vital Signs (12 hours) Temp Pulse Resp BP BP BP BP 08/24/19 11:44 142/64 H 08/24/19 11:06 97.9 F 77 12 151/68 H 08/24/19 09:55 97.6 F 82 16 117/60 08/24/19 06:00 97.9 F 69 12 149/72 H Pulse Ox 08/24/19 11:44 08/24/19 11:06 98 08/24/19 09:55 96 08/24/19 06:00 100 Weight Admit Weight 212 lb 11.937 oz Weight 214 lb 11.684 oz I&O: 08/23/19 08/24/19 08/25/19 06:59 06:59 06:59 Intake Total 3660 2150 Output Total 1950 Balance 3660 200 Result Diagrams: 08/21/19 04:48 08/21/19 04:48 Additional Labs: Accuchecks 08/24/19 08/24/19 08/23/19 10:36 06:12 20:39 POC Glucose 186 H 143 H 260 H 08/23/19 16:55 POC Glucose 161 H Hospitalist ROS - Review of Systems Cardiovascular: denies: chest pain, palpitations, orthopnea, paroxysmal noc. dyspnea, edema, light headedness, other Gastrointestinal: denies: nausea, vomiting, abdominal pain, diarrhea, constipation, melena, hematochezia, other Genitourinary: denies: dysuria, frequency, incontinence, hematuria, retention, other Musculoskeletal: denies: neck pain, shoulder pain, arm pain, back pain, hand pain, leg pain, foot pain, other - Medication Medications: Active Medications Generic Name Dose Route Start Last Admin Trade Name Freq PRN Reason Stop Dose Admin Acetaminophen 650 mg 08/19/19 17:49 08/24/19 11:54 Tylenol PO 650 mg Q4H PRN Administration Headache/Fever/Mild Pain (1-3) Hydrocodone Bitart/Acetaminophen 1 tab 08/19/19 17:49 08/23/19 23:37 [place] 5/325 PO 1 tab Q4H PRN Administration Moderate Pain (4-6) Enoxaparin Sodium 40 mg 08/20/19 09:00 08/24/19 11:44 Lovenox SC 40 mg 0900 [facility] Administration Fluconazole 400 mg 08/20/19 09:00 08/24/19 11:54 Diflucan PO 400 mg DAILY [facility] Administration Gabapentin 300 mg 08/20/19 09:00 08/24/19 11:43 Neurontin PO 300 mg BID [facility] Administration Ceftriaxone Sodium 1 gm/ 100 mls @ 200 mls/hr 08/19/19 21:00 08/23/19 22:14 Sodium Chloride IVPB 100 mls 2100 [facility] Administration Insulin Human Isoph/Insulin Regular 40 units 08/19/19 21:00 08/23/19 23:25 Humulin 70/30 SC Not Given QPM [facility] Insulin Human Isoph/Insulin Regular 60 units 08/20/19 09:00 08/24/19 11:45 Humulin 70/30 SC Not Given QAM [facility] Insulin Human Regular 0 units 08/19/19 17:49 08/23/19 17:47 Humulin R SC 3 unit .AGGRESSIVE SLIDING PRN Administration Aggressive Correctional Scale Insulin Human Regular 0 units 08/19/19 17:49 08/22/19 23:06 Humulin R SC 2 unit .BEDTIME SLIDING SC PRN Administration Bedtime Correctional Scale Lisinopril 20 mg 08/24/19 09:00 08/24/19 11:44 Zestril PO 20 mg DAILY [facility] Administration Loperamide HCl 2 mg 08/19/19 17:49 08/23/19 04:21 Imodium PO 2 mg PRN PRN Administration Diarrhea/Loose Stools Meclizine HCl 12.5 mg 08/19/19 17:49 08/21/19 22:20 Antivert PO 12.5 mg TIDPRN PRN Administration Dizziness Metoclopramide HCl 5 mg 08/19/19 17:49 08/23/19 17:43 Reglan IVP 5 mg Q6H PRN Administration Nausea/Vomiting Metronidazole 500 mg 08/19/19 21:00 08/24/19 11:43 Flagyl PO 500 mg TID [facility] Administration Ondansetron HCl 4 mg 08/20/19 13:55 08/23/19 06:29 Zofran Odt PO 4 mg Q6H PRN Administration Nausea/Vomiting Ondansetron HCl 4 mg 08/20/19 13:55 08/23/19 13:34 Zofran IVP 4 mg Q6H PRN Administration Nausea/Vomiting Pantoprazole Sodium 40 mg 08/21/19 21:00 08/24/19 11:46 Protonix IVP 40 mg BID [facility] Administration Saccharomyces Boulardii 250 mg 08/22/19 09:00 08/24/19 11:43 Florastor PO 250 mg DAILY [facility] Administration Sodium Chloride 10 ml 08/20/19 09:00 08/24/19 11:54 Flush - Normal Saline IVF 10 ml Q12HR [facility] Administration Sodium Chloride 10 ml 08/20/19 08:19 08/23/19 12:31 Flush - Normal Saline IVF 10 ml PRN PRN Administration Saline Flush - Exam Neck: negative: supple, symmetric, no JVD, no thyromegaly, no lymphadenopathy, no carotid bruit, JVD Heart: negative: RRR, no murmur, no gallops, no rubs, normal peripheral pulses, irregular, diminshed peripheral pulses, murmur present, II/IV, III/IV Respiratory: negative: CTAB, no wheezes, no rales, no ronchi, normal chest expansion, no tachypnea, normal percussion, rales, rhonchi, tachypneic, wheezes Gastrointestinal: negative: soft, non-tender, non-distended, normal bowel sounds , no palpable masses, no hepatomegaly, no splenomegaly, no bruit, no guarding, no rigidity, tender to palpation, distended, diminished bowl sounds, voluntary guarding Hosp A/P (1) Acute renal failure Status: Acute (2) Syncope Code(s): R55 - SYNCOPE AND COLLAPSE Status: Acute (3) Osteomyelitis of left foot Code(s): M86.9 - OSTEOMYELITIS, UNSPECIFIED Status: Chronic (4) Leukocytosis Code(s): D72.829 - ELEVATED WHITE BLOOD CELL COUNT, UNSPECIFIED Status: Resolved (5) Diabetic foot infection Code(s): E11.628 - TYPE 2 DIABETES MELLITUS WITH OTHER SKIN COMPLICATIONS; L08.9 - LOCAL INFECTION OF THE SKIN AND SUBCUTANEOUS TISSUE, UNSP Status: Acute (6) Anemia, normocytic normochromic Code(s): D64.9 - ANEMIA, UNSPECIFIED Status: Chronic - Plan pt has multiple complains. will get a tsh. she also states she has been having diarrhea for about a year now. will check stool studies. she also states that she has not been able to eat anything bc when she eats she has diarrhea. she also complains of pain to her epigastric area. will continue hydration. will get a echo. will continue current abx for now. 08/22 pt is still having diarrhea. This is chronic diarrhea. her stool studies were negative but she has elevated wbc in her stool. she has no insurance and has not been able to see GI as outpatient. Tsh is normal. She continues to have dizziness and she states that she feels unsteady. given her hx of dm and htn will get a MRI brain to rule out stroke. she tolerated lomtil and feels that has helped her diarrhea. 08/23 MRI pending, pt to undergo EGD and colonoscopy in am. will continue abx for now. Blood pressure a bit high will start pt on lisinopril. 08/24 MRI negative, egd no acute abnormality and colonoscopy only polyps removed. Ct abd/pelvic has been ordered. pt states she feels better than yesterday.
[2019-08-24] MEDS: HYDROcodone/Acetaminophen 5/325 mg Tablet PO PRN ×2 (14:19→21:35)
[2019-08-24] MEDS: Loperamide HCl 2 MG CAP PO PRN (14:19)
--- NOTE | 2019-08-24 14:45 | CT ---
CT ABDOMEN AND PELVIS PERFORMED WITH CONTRAST ENHANCEMENT: HISTORY: Abdominal pain and diarrhea. Unrevealing EGD and colonoscopy. COMPARISON: A CT done with contrast of the abdomen and pelvis dated 11/29/[address] of the abdomen and pelvis dated 12/18/2018. The lung bases are clear of any infiltrative process. Stable appearance to a tiny 3-4 mm right lower lobe pulmonary nodule is seen. The liver and spleen appear similar to the previous examination. Tiny fluid density is seen along th e lateral margin of the spleen, stable. The pancreas region and gallbladder appear unremarkable. Right and left adrenal glands are normal. Right and left kidneys are normal in size. A small hypode nsity involving the mid to upper pole of the right kidney and the area in the mid pole region of the left kidney have essentially resolved with very minimal residual change remaining. There is no signi ficant periaortic or mesenteric lymphadenopathy noted. I do not appreciate any bowel wall abnormalities. A tiny fat-containing paraumbilical hernia is seen . CT OF PELVIS PERFORMED WITH COTNRAST ENHANCEMENT: No adenopathy, mass, or free fluid. The appendix is normal. IMPRESSION: 1. No acute changes of the abdomen or pelvis. 2. Stable small 3 mm right lower lobe pulmonary nodule. 3. Almost complete resolution of the bilateral renal lesions. POS: [facility]
--- NOTE | 2019-08-24 19:00 | PRG ---
DATE OF SERVICE: 08/24/2019 SUBJECTIVE: Ms. Olson fell and hit her head. She had some imaging studies. She also had a GI evaluation, which was fairly normal at least in the visual inspection. The biopsies are pending. OBJECTIVE: VITAL SIGNS: The patient's vital signs demonstrate normal temperature, blood pressure 160/74, and pulse 75. GENERAL: The patient is awake, alert, appears in no distress. LUNGS: Clear. HEART: S1 and S2, regular rate. ABDOMEN: Soft. EXTREMITIES: Foot, unchanged. LABORATORY DATA: White cell count 13.8, hemoglobin 11, platelets 267, and creatinine 0.95. She had an abdomen and pelvis CT completed with no changes noted of significance. There is a stable pulmonary nodule. Renal lesions have completely resolved. Pathology of the biopsies is pending. ASSESSMENT AND DISCUSSION: Type 2 diabetes; neuropathy; prior amputations; recent left first toe amputation with compromised margin and discharged on Rocephin, Flagyl, and Diflucan; worsening renal function; hypotension; neutrophilia of unclear etiology. The cast showed that the right foot appears in good shape right now with quite a bit of improvement in the lesions. She needs to continue with full-contact casting under supervision by Francine Angulo [facility] in [place]. Otherwise, she probably is ready for discharge planning. Continue antimicrobial therapy as previously. Job ID: [id number]
[2019-08-24] MEDS: cefTRIAXone\\ROCEPHIN 1 GM in Sodium Chloride 0.9% 100 ML IVPB SCH (21:40)
[2019-08-25] MEDS ORDERED: traMADol HCl 50 MG TAB PO SCH ×2 (00:45→13:00)
[2019-08-25] MEDS: Ondansetron PF 4 MG/2 ML Vial IVP PRN (06:45)
[2019-08-25] MEDS: Loperamide HCl 2 MG CAP PO PRN (06:46)
[2019-08-25 07:00] LABS: #Basophils 0.1 thou/uL (0.0-0.2); #Eosinphils 0.5 thou/uL (0.0-0.7); #Lymphocytes 4.3 thou/uL (1.20-3.40); #Monocytes 0.8 thou/uL (0.11-0.59); #Neutrophils 4.4 thou/uL (1.40-6.50); %Lymphocytes 42.5 % (21.0-51.0); %Monocytes 8.1 % (0.0-10.0); %Neutrophils 43.4 % (42.0-75.0); Hemoglobin 11.4 g/dL (12.0-16.0); Mean Corpuscular HGB CONC 31.9 g/dL (32.0-36.0); Mean Corpuscular Hemoglobin 26.1 pg (27.0-31.0); Mean Corpuscular Volume 81.8 fL (78.0-98.0); Mean Platelet Volume 8.8 fL (7.4-10.4); Platelet Count 310 thou/uL (130-400); RBC Distribution Width 14.5 % (11.5-14.5); Red Blood Cell (RBC) Count 4.36 mill/uL (4.20-5.40); White Blood Cell (WBC) Count 10.1 thou/uL (4.8-10.8)
[2019-08-25 07:16] LABS: Anion Gap 13 mmol/L (10-20); BUN (Urea Nitrogen) 17 mg/dL (7.0-18.7); Calc. Creatinine Clearance 85 mL/min (70-130); Carbon Dioxide 26 mmol/L (22-29); Chloride 102 mmol/L (98-107); Estimated GFR-MDRD 46; Glucose 210 mg/dL (70-105); Potassium 3.3 mmol/L (3.5-5.1); Sodium 138 mmol/L (136-145)
[2019-08-25] MEDS: metroNIDAZOLE 500 MG TAB PO SCH (09:18)
[2019-08-25] MEDS: Enoxaparin Sodium 40 MG/0.4 ML SYRINGE SC SCH (09:18)
[2019-08-25] MEDS: Saccharomyces boulardii 250 MG CAP PO SCH (09:18)
[2019-08-25] MEDS: Lisinopril 20 MG TAB PO SCH (09:19)
[2019-08-25] MEDS: Gabapentin 300 MG CAP PO SCH (09:19)
[2019-08-25] MEDS: Pantoprazole 40 MG VIAL IVP SCH (09:20)
[2019-08-25] MEDS: HumuLIN 70/30 (300 UNITS/3 ML VIAL) SC SCH (09:22)
[2019-08-25] MEDS: HYDROcodone/Acetaminophen 5/325 mg Tablet PO PRN (09:25)
[2019-08-25] MEDS: Fluconazole 100 MG TAB PO SCH (09:27)
[2019-08-25] MEDS ORDERED: Potassium Chloride 20 MEQ TAB PO SCH (11:45)
[2019-08-25] MEDS: Insulin Regular 300 UNITS/3 ML VIAL SC PRN (11:49)
[2019-08-25 11:53] VITALS: BP 144/74; TEMP 97.9
--- NOTE | 2019-08-26 04:41 | DIS ---
DATE OF ADMISSION: 08/19/2019 DATE OF DISCHARGE: 08/25/2019 DISCHARGE DIAGNOSES: As of the following, 1. Syncope. 2. Acute renal failure. 3. Osteomyelitis of the left foot, which is chronic. 4. Leukocytosis, mild. 5. Diabetic foot infections. 6. Anemia. 7. Nausea, vomiting, and chronic diarrhea. HOSPITAL COURSE: The patient is a 49-year-old female, who presents to the hospital on 08/19 with actually leukocytosis, syncope, and low blood pressure. The patient has significant osteomyelitis of the left great toe and also is currently on antibiotics as outpatient therapy. She initially was asked to come into the hospital for possible worsening infection and also the patient had a syncopal episode. However, upon asking her further questions, she stated that she was just lightheaded and did not really pass out. At this time, she was seen by Infectious Disease and also by Orthopedic. Her wounds were evaluated and they appeared to be healing appropriately. Her antibiotics were not changed. However, syncope workup was initiated. She was initially given IV hydration. Also, she had a brain CT, which was negative. An MRI of the brain was done, which did indicate unremarkable with no strokes. Given her chronicity of nausea, vomiting, and diarrhea and since she is an unfunded patient, GI was consulted. Stool studies were negative. She did have, however, elevated leukocyte esterase. At this time, she underwent an EGD and a colonoscopy. The EGD did not indicate any acute abnormalities and her colonoscopy indicated some polyps and she had some mild patchy erythema and friable in the rectum, which was biopsied, she was asked to follow up for her biopsy results, also possible microscopic colitis. Also as I mentioned, two small transverse colon polyps were removed. The patient continued to improve through the hospital stay. Her blood pressure seemed to be elevated. She was put on lisinopril and that caused a little bit of elevation in her creatinine. I have asked the patient to follow up with her primary care doctor on Saturday for another blood work. HOME MEDICATIONS: Will be as of the following, 1. She will go home on lisinopril 20 mg daily. 2. Florastor 250 mg daily. 3. Ceftriaxone, her normal dose of 1 g daily. 4. Diflucan 400 mg daily. 5. Humalog 70/30 of 60 units in the morning. 6. Metronidazole 500 mg t.i.d. 7. Humalog 70/30 of 40 units q.p.m. 8. Gabapentin 300 mg twice a day. PHYSICAL EXAMINATION: VITAL SIGNS: Temperature of 97.9, heart rate 72, respiratory rate 16, oxygen saturation 98% on room air, and blood pressure 144/74. GENERAL: She is awake, alert, and oriented x3. Does not appear in distress. CV: S1 and S2 present. No murmurs, rubs, or gallops. ABDOMEN: Soft and nontender. Bowel sounds are present x2. Again, she will be discharged home. She will follow up as an outpatient for her wound care at [facility], and also she is going to follow up with her primary and also the results of her biopsy. Job ID: [id number]
--- NOTE | 2019-08-27 09:24 | PQF ---
Jeanne Olson KARISHMA [id number] CLINICAL DOCUMENTATION CLARIFICATION FORM: POST DISCHARGE Addendum to original discharge summary date: ____ Late entry note date: __ DATE:08/27/2019 ATTN:SEA ORTIZ Please exercise your independent, professional judgment in responding to the clarification form. Clinical indicators are provided on the bottom of this form for your review Please check appropriate box(s) to clarify if the following diagnosis has been ruled in or ruled out: Sepsis [ ] Ruled in diagnosis [ ] Continue to treat [ ] Resolved [ ] Ruled out diagnosis [ ] Cannot rule out diagnosis [ x ] Other diagnosis __ not sepsis chronic diabetic foot. [ ] Unable to determine In addition, please specify: Present on Admission (POA): [ ] Yes [ ] No [ x] Unable to determine For continuity of documentation, please document condition throughout progress notes and discharge summary. Thank You. CLINICAL INDICATORS - SIGNS / SYMPTOMS / LABS Sepsis-Documented in Hospitalist progress note on 08/20 by Guillermo Craven MD Leukocytosis , hypotension renal failure all concerning for sepsis with possibility of ID-Alan consulted -Documented in Hospitalist progress note on by Guillermo Craven MD Acute renal failure-Documented in Hospitalist progress note on 08/20 by Guillermo Craven MD [id number] in ED on 08/19 by William Valles Diabetic foot infections -Documented in Discharge summary on 08/25 by Sea Ortiz MD Osteomyelitis of the left foot which is chronic -Documented in Discharge summary on 08/25 by Sea Ortiz MD RISK FACTORS Diabetic foot infections -Documented in Discharge summary on 08/25 by Sea Ortiz MD Osteomyelitis of the left foot which is chronic -Documented in Discharge summary on 08/25 by Sea Ortiz MD TREATMENTS Continue IV Rocephin-Documented in H&P on 08/19 kirstie Marin Environmental Change Analyst [employer] Win[employer] Viewer (This form is maintained as a part of the permanent medical record) 2014 [employer]. All Rights Reserved [email or web address]
[2019-08-27 16:12] LABS: Routine O & P Final report (.)
--- NOTE | 2019-08-27 16:45 | EKG ---
Test Reason : Blood Pressure : / mmHG Vent. Rate : 083 BPM Atrial Rate : 083 BPM P-R Int : 144 ms QRS Dur : 088 ms QT Int : 408 ms P-R-T Axes : 024 -21 064 degrees QTc Int : 479 ms Normal sinus rhythm Possible Left atrial enlargement Left ventricular hypertrophy Confirmed by AVIVA MERINO DO ([id number]), tape editor DIEUDONNE CHAVIS ([id number]) on 08/27/2019 4:44:44 PM Referred By: Confirmed By:AVIVA MERINO DO
--- NOTE | 2019-08-31 10:29 | PQF ---
Jeanne Olson KARISHMA [id number] CLINICAL DOCUMENTATION CLARIFICATION FORM: POST DISCHARGE Addendum to original discharge summary date: ____ Late entry note date: __ DATE: 08/31/2019 ATTN:SEA ORTIZ Please exercise your independent, professional judgment in responding to the clarification form. Clinical indicators are provided on the bottom of this form for your review Please check appropriate box(s): [ x ] Syncope due to orthostatic hypotension [ ] Syncope due to Volume depletion [ ] Syncope due to Uncontrolled DM [ ] Syncope due to STEPH [ ] Syncope due to Diabetic foot infection [ ] Other diagnosis [ ] Unable to determine For continuity of documentation, please document condition throughout progress notes and discharge summary. Thank You. CLINICAL INDICATORS - SIGNS / SYMPTOMS / LABS Syncope/dizziness etiology uncertain but the patient had positive orthostatic hypotension in the ER suspected from volume depletion from uncontrolled diabetes -Documented in H&P on 08/19 by Shameka Marin DM type 2 uncontrolled -Documented in H&P on 08/19 by Shameka Marin Acute renal failure -Documented in Hospitalist progress note-08/20 by Bob Craven MD Diabetic foot infections-Documented in Discharge summary on 08/25 by Xin Ortiz RISK FACTORS patient had positive orthostatic hypotension in the ER suspected from volume depletion from uncontrolled diabetes-Documented in H&P on 08/19 by Shameka Marin Acute renal failure -Documented in Hospitalist progress note-08/20 by Bob Craven MD Diabetic foot infections-Documented in Discharge summary on 08/25 by Xin Ortiz TREATMENTS We will continue with insulin 70/30 as per home dose-Documented in H&P on 08/19 by Shameka Marin Labs and vital improved with IV fluids in ER -Documented in Hospitalist progress note-08/20 by Bob Craven MD SAP Dispatcher Radio [employer] Win[employer] Viewer (This form is maintained as a part of the permanent medical record) 2014 [employer]. All Rights Reserved [email or web address]
== END 2019-08-25 13:43 | disposition home or self-care (01) | DRG 312 ==
LOC: ERS 13:22 → OBSVTOIN 15:53 → ERHOLD 15:53 → 2SW 19:21 → 2NO 08-21 20:09
PROVIDERS: ADMIT Internal Medicine; ATTEND Internal Medicine
PROC: 0DB98ZX Excision of Duodenum, Via Natural or Artificial Opening Endoscopic, Diagnostic (ICD-10-PCS; principal; 2019-08-24)
PROC: 0DBP8ZX Excision of Rectum, Via Natural or Artificial Opening Endoscopic, Diagnostic (ICD-10-PCS; 2019-08-24)
PROC: 0DBL8ZZ Excision of Transverse Colon, Via Natural or Artificial Opening Endoscopic (ICD-10-PCS; 2019-08-24)
DX: I95.1 Orthostatic hypotension (principal); M86.672 Other chronic osteomyelitis, left ankle and foot; N17.9 Acute kidney failure, unspecified; Z68.41 Body mass index [BMI] 40.0-44.9, adult; K52.839 Microscopic colitis, unspecified; E11.69 Type 2 diabetes mellitus with other specified complication; D64.9 Anemia, unspecified; E86.0 Dehydration; E11.40 Type 2 diabetes mellitus with diabetic neuropathy, unspecified; E66.01 Morbid (severe) obesity due to excess calories; E78.5 Hyperlipidemia, unspecified; E11.628 Type 2 diabetes mellitus with other skin complications; L08.9 Local infection of the skin and subcutaneous tissue, unspecified; K57.30 Diverticulosis of large intestine without perforation or abscess without bleeding; Z91.041 Radiographic dye allergy status; K63.5 Polyp of colon; Z89.422 Acquired absence of other left toe(s)
CPT/HCPCS: 36415; 36416; 51701; 70450; 70551; 74177; 80048; 81003; 81015; 83605; 83630; 84145; 84443; 84484; 85025; 86140; 87045; 87046; 87177; 87324; 87328; 87329; 87427; 87449; 88305; 93005; 93306; 93970; 96360; 96361; A4353; C9113; J0696; J1650; J1815; J1885; J2060; J2405; J2704; J2765; J3010; J3490; J8597; Q0162; Q9967

== ENCOUNTER 2019-12-28 17:12 | Emergency (ER) | payer SELFPAY ==
[2019-12-28] MEDS ORDERED: Ketorolac Tromethamine 30 MG/ML VIAL ONE (17:57)
[2019-12-28 18:15] LABS: #Basophils 0.1 thou/uL (0.0-0.2); #Eosinphils 0.3 thou/uL (0.0-0.7); #Lymphocytes 3.4 thou/uL (1.20-3.40); #Monocytes 0.7 thou/uL (0.11-0.59); #Neutrophils 9.5 thou/uL (1.40-6.50); %Basophils 0.6 % (0.0-1.0); %Eosinophils 1.9 % (0.0-10.0); %Lymphocytes 24.6 % (21.0-51.0); %Monocytes 4.8 % (0.0-10.0); Hemoglobin 13.7 g/dL (12.0-16.0); Mean Corpuscular Hemoglobin 28.1 pg (27.0-31.0); Mean Corpuscular Volume 85.3 fL (78.0-98.0); Mean Platelet Volume 8.8 fL (7.4-10.4); Platelet Count 273 thou/uL (130-400); Red Blood Cell (RBC) Count 4.87 mill/uL (4.20-5.40)
[2019-12-28 18:36] LABS: ALT (SGPT) 16 U/L (8-55); AST (SGOT) 15 U/L (5-34); Albumin 3.4 g/dL (3.5-5.0); Alkaline Phosphatase 126 U/L (40-110); Anion Gap 14 mmol/L (10-20); BHCG - Serum Negative (NEGATIVE); BUN (Urea Nitrogen) 26 mg/dL (7.0-18.7); Bilirubin, Total 0.2 mg/dL (0.2-1.2); Calc. Creatinine Clearance 0 mL/min (70-130); Calcium 8.8 mg/dL (7.8-10.44); Carbon Dioxide 24 mmol/L (22-29); Chloride 100 mmol/L (98-107); Estimated GFR-MDRD 42; Globulin 3.9 g/dL (2.4-3.5); Glucose 366 mg/dL (70-105); Potassium 4.6 mmol/L (3.5-5.1); Pregs Control Background? CLEAR/WHITE (CLR/WHITE); Pregs Control Bar Appear? YES (CONTROL BAR); Protein, Total 7.3 g/dL (6.0-8.3); Sodium 133 mmol/L (136-145)
--- NOTE | 2019-12-28 19:27 | RAD ---
PORTABLE CHEST: Date: 12-28-2019 Time: 6:30 p.m. History: Dizziness Comparison: 07-29-2019 FINDINGS: The heart size is normal. No lobar consolidation, pneumothoraces or pleural effusions are seen. IMPRESSION: No acute process. POS: [facility]
--- NOTE | 2019-12-28 20:15 | RAD ---
LEFT FOOT THREE VIEWS: History: Foot wound. Comparison: 07-29-2019 FINDINGS: Amputation at the level of the 2nd and 3rd metatarsals was present on the prior examination. Since th at prior study, there has now been amputation to the level of the base of the first metatarsal. I do not see any acute bony changes that would suggest osteomyelitis. No air is seen within the soft tissu es. IMPRESSION: No plain film evidence of acute osteomyelitis. There appears to be a soft tissue ulcer on the plantar surface of the foot. This is at the level of the 4th metatarsal phalangeal joint which is a narrow j oint space. It does not show any definite destructive change. POS: [facility]
--- NOTE | 2020-01-02 17:29 | EKG ---
Test Reason : Blood Pressure : / mmHG Vent. Rate : 073 BPM Atrial Rate : 073 BPM P-R Int : 166 ms QRS Dur : 086 ms QT Int : 408 ms P-R-T Axes : 008 -36 -02 degrees QTc Int : 449 ms Normal sinus rhythm Left axis deviation Moderate voltage criteria for LVH, may be normal variant Abnormal ECG Confirmed by DANIEL Garcia, GEETA ([id number]), videotape editor DIEUDONNE CHAVIS ([id number]) on 01/02/2020 5:29:02 PM Referred By: Confirmed By:GEETA SANCHEZ M.D.
== END 2019-12-28 20:48 | disposition home or self-care (01) ==
LOC: ERS 17:12
DX: R55 Syncope and collapse (principal); E11.621 Type 2 diabetes mellitus with foot ulcer; L97.529 Non-pressure chronic ulcer of other part of left foot with unspecified severity; E11.40 Type 2 diabetes mellitus with diabetic neuropathy, unspecified; G43.909 Migraine, unspecified, not intractable, without status migrainosus; F32.9 Major depressive disorder, single episode, unspecified; Z87.891 Personal history of nicotine dependence; Z79.4 Long term (current) use of insulin; Z79.899 Other long term (current) drug therapy
CPT/HCPCS: 71045; 80053; 84484; 84703; 85025; 93005; 96374; J1885

== ENCOUNTER 2020-01-05 20:41 | Emergency (ER) | payer SELFPAY ==
--- NOTE | 2020-01-05 21:33 | RAD ---
XR Chest 1 View Portable History: Chest pain Comparison: Radiograph December 28, 2019 Findings: Lungs are clear. No pneumothorax. No effusion. Cardiac silhouette and mediastinal contours are within normal limits. Impression: No acute intrathoracic abnormality.
[2020-01-05 21:40] LABS: #Basophils 0.1 thou/uL (0.0-0.2); #Eosinphils 0.3 thou/uL (0.0-0.7); #Lymphocytes 3.8 thou/uL (1.20-3.40); #Monocytes 0.7 thou/uL (0.11-0.59); %Basophils 0.6 % (0.0-1.0); %Eosinophils 2.4 % (0.0-10.0); %Lymphocytes 27.3 % (21.0-51.0); %Neutrophils 64.7 % (42.0-75.0); Hemoglobin 13.5 g/dL (12.0-16.0); Mean Corpuscular HGB CONC 33.3 g/dL (32.0-36.0); Mean Corpuscular Hemoglobin 28.2 pg (27.0-31.0); Mean Corpuscular Volume 84.7 fL (78.0-98.0); Platelet Count 260 thou/uL (130-400); Red Blood Cell (RBC) Count 4.78 mill/uL (4.20-5.40); White Blood Cell (WBC) Count 13.9 thou/uL (4.8-10.8)
[2020-01-05 22:01] LABS: ALT (SGPT) 16 U/L (8-55); AST (SGOT) 14 U/L (5-34); Albumin 3.3 g/dL (3.5-5.0); Alkaline Phosphatase 114 U/L (40-110); Anion Gap 12 mmol/L (10-20); BUN (Urea Nitrogen) 29 mg/dL (7.0-18.7); Bilirubin, Total 0.3 mg/dL (0.2-1.2); Calc. Creatinine Clearance 0 mL/min (70-130); Calcium 8.8 mg/dL (7.8-10.44); Carbon Dioxide 24 mmol/L (22-29); Chloride 102 mmol/L (98-107); Estimated GFR-MDRD 53; Globulin 3.7 g/dL (2.4-3.5); Glucose 371 mg/dL (70-105); Potassium 4.2 mmol/L (3.5-5.1); Sodium 134 mmol/L (136-145)
== END 2020-01-05 22:35 | disposition home or self-care (01) ==
LOC: ERS 20:41
DX: R07.89 Other chest pain (principal); E11.40 Type 2 diabetes mellitus with diabetic neuropathy, unspecified; G43.909 Migraine, unspecified, not intractable, without status migrainosus; F32.9 Major depressive disorder, single episode, unspecified; Z79.4 Long term (current) use of insulin; Z79.899 Other long term (current) drug therapy
CPT/HCPCS: 36415; 71045; 80053; 84484; 85025; 93005

== ENCOUNTER 2020-01-30 11:45 | Inpatient (IN) | payer OTHER, SELFPAY ==
[2020-01-30] MEDS ORDERED: Ketorolac Tromethamine 30 MG/ML VIAL ONE (12:27)
--- NOTE | 2020-01-30 12:34 | RAD ---
RIGHT FOOT 3 VIEWS: HISTORY: Right leg pain. Toe redness. FINDINGS: There are no signs of fracture. There are calcaneal spurs present. I do not see any radiographic ev idence for osteomyelitis. IMPRESSION: No acute changes. POS: [facility]
[2020-01-30 12:37] LABS: Hemoglobin 13.3 g/dL (12.0-16.0); Mean Corpuscular HGB CONC 30.7 g/dL (32.0-36.0); Mean Corpuscular Volume 88.1 fL (78.0-98.0); Mean Platelet Volume 11.4 fL (7.4-10.4); Platelet Count 166 thou/uL (130-400); Red Blood Cell (RBC) Count 4.94 mill/uL (4.20-5.40)
[2020-01-30] MEDS ORDERED: Cefepime 1 GM VIAL ONE (12:41)
[2020-01-30] MEDS ORDERED: diphenhydrAMINE 50 MG/ML VIAL ONE (12:42)
[2020-01-30 12:56] LABS: Band 3 % (5-11); Lymphocytes 12 % (21-51); MDiff Complete? YES; Monocytes 3 % (0-10); Neutrophil 81 % (42-75); Platelet Morphology Comment Appears Adequate; RBC Morphology Normal
[2020-01-30 13:05] LABS: ALT (SGPT) 11 U/L (8-55); AST (SGOT) 14 U/L (5-34); Albumin 3.2 g/dL (3.5-5.0); Alkaline Phosphatase 122 U/L (40-110); Anion Gap 15 mmol/L (10-20); BUN (Urea Nitrogen) 20 mg/dL (7.0-18.7); Bilirubin, Total 0.6 mg/dL (0.2-1.2); Calc. Creatinine Clearance 0 mL/min (70-130); Calcium 9.1 mg/dL (7.8-10.44); Carbon Dioxide 22 mmol/L (22-29); Chloride 98 mmol/L (98-107); Estimated GFR-MDRD 37; Globulin 4.3 g/dL (2.4-3.5); Glucose 352 mg/dL (70-105); Potassium 4.8 mmol/L (3.5-5.1); Protein, Total 7.5 g/dL (6.0-8.3); Sodium 130 mmol/L (136-145)
[2020-01-30] MEDS ORDERED: Ondansetron PF 4 MG/2 ML Vial IVP PRN ×2 (15:47→16:47)
[2020-01-30] MEDS ORDERED: Ondansetron ODT 4 MG TAB SL PRN (15:47)
[2020-01-30] MEDS ORDERED: Acetaminophen 325 MG TAB PO PRN (15:47)
[2020-01-30] MEDS ORDERED: Fentanyl 100 MCG/2 ML VIAL SLOW IVP PRN (15:49)
[2020-01-30] MEDS ORDERED: Sodium Chloride 0.9% 1,000 ML IV SCH (15:50)
[2020-01-30 16:07] VITALS: BMI 39.1
[2020-01-30] MEDS ORDERED: HumaLOG 300 UNITS/3 ML VIAL SC PRN (16:47)
[2020-01-30] MEDS ORDERED: Calcium Carbonate 500 MG ChewTAB PO PRN (16:47)
[2020-01-30] MEDS ORDERED: Bisacodyl 10 MG SUPP PR PRN (16:47)
[2020-01-30] MEDS ORDERED: Senokot S 8.6-50 MG TAB PO PRN (16:47)
[2020-01-30] MEDS ORDERED: Dextrose 50% Abboject 50 ML SYRINGE SLOW IVP PRN (16:47)
[2020-01-30] MEDS ORDERED: Guaifenesin DM 100-10/5 ML UDCUP PO PRN (16:47)
[2020-01-30] MEDS ORDERED: Dextrose 5% in Water 1,000 ML IV PRN (16:47)
[2020-01-30] MEDS: Piperacillin/Tazobactam 3.375 GM in Sodium Chloride 0.9% 100 ML IVPB SCH (17:09)
[2020-01-30] MEDS: Sodium Chloride 0.9% 1,000 ML IV SCH (17:16)
--- NOTE | 2020-01-30 17:42 | HP ---
REASON FOR ADMISSION: Right leg cellulitis, sepsis. HISTORY OF PRESENTING ILLNESS: The patient gives history of having pain in the right groin, which was 3/10 in intensity, radiating down her medial side of her leg to the foot area. This started last night. This pain seemed to resolve by affiliate marketing coordinator, but the patient saw redness on her foot, which was tender to touch this morning. She has had prior amputations on her left leg and was worried that she is getting another infection. No fever. No complaints of cough or expectoration. No exposure to coronavirus. She normally ambulates by herself. PAST MEDICAL AND SURGICAL HISTORY: History of diabetes mellitus type 2, which is insulin dependent and diabetic neuropathy. Prior surgeries with amputations of toes on her left foot. She still has a plantar ulcer on the left foot, x3, and left shoulder surgery. CURRENT MEDICATIONS: 1. Novolin 70/30, 60 units in a.m. and 30 units q.p.m. 2. Gabapentin 900 mg p.o. 3 times daily. ALLERGIES: INTOLERANT TO CEFTRIAXONE, WHICH CAUSES A RASH FOR WHICH SHE WILL NEED BENADRYL IF GIVEN. PERSONAL HISTORY: Does not abuse alcohol or drugs. No history of smoking. She lives with her . Ambulates by herself. FAMILY HISTORY: Both parents are living. Mother has diabetes. Father has diabetes, hypertension, and coronary artery disease. CODE STATUS: Full. REVIEW OF SYSTEMS: CONSTITUTIONAL: Negative for weight loss or gain, ability to conduct usual activities. SKIN: Negative for rash, itching. EYES: Negative for double vision, pain. ENT/MOUTH: Negative for nose bleeding, neck stiffness, pain, tenderness. CARDIOVASCULAR: Negative for palpitations, dyspnea on exertion, orthopnea. RESPIRATORY: Negative for shortness of breath, wheezing, cough, hemoptysis, fever or night sweats. GASTROINTESTINAL: Negative for poor appetite, abdominal pain, heartburn, nausea, vomiting, constipation, or diarrhea. GENITOURINARY: Negative for urgency, frequency, dysuria, nocturia. MUSCULOSKELETAL: Negative for pain, swelling. NEUROLOGIC/PSYCHIATRIC: Negative for anxiety, depression. ALLERGY/IMMUNOLOGIC: Negative for skin rash, bleeding tendency. PHYSICAL EXAMINATION: GENERAL: The patient is a 49-year-old female, who is currently not in any acute distress. VITAL SIGNS: On arrival, blood pressure was 80/48. Current blood pressure is 114/74. She has received 2 L of IV fluid in the ER, pulse 78 per minute, respiratory rate 18 per minute, and temperature 98 degrees Fahrenheit. NECK: Supple. No elevated JVD. HEENT: Eyes; extraocular muscles intact. Pupils reacting to light. Oral cavity, mucous membranes are dry. No exudates or congestion. CARDIOVASCULAR SYSTEM: S1 and S2 heard. Regular rhythm. RESPIRATORY SYSTEM: Air entry 1+ bilateral. No rales or rhonchi. ABDOMEN: Soft. Bowel sounds heard. No tenderness, rigidity, or guarding. EXTREMITIES: Right foot; on the dorsal aspect, the patient has erythema and severe tenderness. She also has edema in the leg and foot area. Left foot, there is a plantar ulcer, which is 4 x 3 cm. Peripheral pulses are 1+ bilateral. No gangrene seen. CENTRAL NERVOUS SYSTEM: No gross focal motor deficits noted. The patient is alert, awake, and oriented well. PSYCHIATRIC SYSTEM: The patient's mood is euthymic. No hallucinations or delusions. LABORATORY DATA: White count of 24, H and H 13 and 43, platelet count is 166 with 81% neutrophils, 3% bands, 12% lymphocytes. Sodium 130, BUN 20, creatinine 1.5, serum bicarb 22, serum glucose 352. Liver enzymes are within normal limits. Albumin 3.2. Right foot three-view x-ray done shows no radiographic evidence of osteomyelitis. CLINICAL IMPRESSION AND PLAN: The patient will be admitted to medical floor for sepsis and right leg cellulitis. The patient has elevated white count with bandemia. There is no exposure to COVID as such. The patient has received a COVID PCR in the ER. We will follow up on that. She will be on vancomycin and Zosyn. We will gently hydrate her with normal saline at 70 mL/hour. Morphine for severe pain and [place] p.r.n. for [id number] pain. We will continue her 70/30 insulin at home doses along with gabapentin. Wound Care will be consulted for the left foot plantar ulcer. We will closely monitor her on medical floor. Job ID: [id number]
[2020-01-30] MEDS: HumaLOG 300 UNITS/3 ML VIAL SC PRN (18:28)
[2020-01-30] MEDS: Gabapentin 300 MG CAP PO SCH (19:58)
[2020-01-30] MEDS: Morphine 2 MG/ML VIAL SLOW IVP PRN (19:58)
[2020-01-30] MEDS: HumuLIN 70/30 (300 UNITS/3 ML VIAL) SC SCH (20:08)
[2020-01-31] MEDS: Morphine 2 MG/ML VIAL SLOW IVP PRN ×3 (00:56→14:55)
[2020-01-31] MEDS: Piperacillin/Tazobactam 3.375 GM in Sodium Chloride 0.9% 100 ML IVPB SCH ×3 (00:57→17:37)
[2020-01-31] MEDS: Acetaminophen 325 MG TAB PO PRN ×2 (00:57→22:22)
[2020-01-31 07:00] LABS: #Basophils 0.1 thou/uL (0.0-0.2); #Eosinphils 0.5 thou/uL (0.0-0.7); #Lymphocytes 3.3 thou/uL (1.20-3.40); #Monocytes 1.6 thou/uL (0.11-0.59); #Neutrophils 20.2 thou/uL (1.40-6.50); %Basophils 0.3 % (0.0-1.0); %Eosinophils 1.8 % (0.0-10.0); %Monocytes 6.2 % (0.0-10.0); %Neutrophils 78.7 % (42.0-75.0); Hemoglobin 10.9 g/dL (12.0-16.0); Mean Corpuscular HGB CONC 31.9 g/dL (32.0-36.0); Mean Corpuscular Hemoglobin 27.3 pg (27.0-31.0); Mean Corpuscular Volume 85.6 fL (78.0-98.0); Platelet Count 248 thou/uL (130-400); RBC Distribution Width 12.5 % (11.5-14.5); Red Blood Cell (RBC) Count 3.99 mill/uL (4.20-5.40); White Blood Cell (WBC) Count 25.6 thou/uL (4.8-10.8)
[2020-01-31 07:19] LABS: Anion Gap 12 mmol/L (10-20); BUN (Urea Nitrogen) 16 mg/dL (7.0-18.7); Calc. Creatinine Clearance 85 mL/min (70-130); Calcium 8.3 mg/dL (7.8-10.44); Carbon Dioxide 25 mmol/L (22-29); Chloride 102 mmol/L (98-107); Estimated GFR-MDRD 48; Glucose 149 mg/dL (70-105); Potassium 3.5 mmol/L (3.5-5.1); Sodium 135 mmol/L (136-145)
[2020-01-31] MEDS: Sodium Chloride 0.9% 1,000 ML IV SCH ×2 (07:54→09:27)
[2020-01-31] MEDS: HumuLIN 70/30 (300 UNITS/3 ML VIAL) SC SCH ×2 (09:20→22:24)
[2020-01-31] MEDS: Gabapentin 300 MG CAP PO SCH ×2 (09:20→22:22)
[2020-01-31] MEDS: Enoxaparin Sodium 40 MG/0.4 ML SYRINGE SC SCH (09:20)
--- NOTE | 2020-01-31 10:30 | PDOC.HOSPP ---
- Subjective Encounter Date: 01/31/20 Encounter Time: 07:10 Subjective: pain in right foot is better she feels something in her plantar aspect of foot like a foreign body per patient - Objective Vital Signs & Weight: Vital Signs (12 hours) Temp Pulse Resp BP BP Pulse Ox 01/31/20 07:39 98.0 F 81 20 97/64 99 01/31/20 05:42 98.5 F 89 18 98/65 98 01/31/20 00:00 100.3 F H 107 H 20 133/76 96 Weight Weight 207 lb 1.6 oz I&O: 01/30/20 01/31/20 02/01/20 06:59 06:59 06:59 Intake Total 830 Balance 830 Result Diagrams: 01/31/20 06:20 01/31/20 06:20 Additional Labs: Accuchecks 01/31/20 01/30/20 01/30/20 04:44 19:38 16:41 POC Glucose 95 338 H 289 H Hospitalist ROS - Medication Medications: Active Medications Generic Name Dose Route Start Last Admin Trade Name Freq PRN Reason Stop Dose Admin Acetaminophen 650 mg 01/30/20 16:47 01/31/20 00:57 Tylenol PO 650 mg Q4H PRN Administration Headache/Fever/Mild Pain (1-3) Enoxaparin Sodium 40 mg 01/31/20 09:00 01/31/20 09:20 Lovenox SC 40 mg 0900 BOGDAN Administration Gabapentin 600 mg 01/30/20 21:00 01/31/20 09:20 Neurontin PO 600 mg BID BOGDAN Administration Sodium Chloride 1,000 mls @ 70 mls/hr 01/30/20 16:47 01/31/20 09:27 Normal Saline 0.9% IV 01/31/20 21:21 1,000 mls .[id number] BOGDAN Administration Piperacillin Sod/Tazobactam 100 mls @ 200 mls/hr 01/30/20 17:00 01/31/20 09: 20 Sod 3.375 gm/ Sodium Chloride IVPB 100 mls 0100,0900,1700 BOGDAN Administration Insulin Human Isoph/Insulin Regular 30 units 01/30/20 21:00 01/30/20 20:08 Humulin 70/30 SC 30 unit QPM BOGDAN Administration Insulin Human Isoph/Insulin Regular 60 units 01/31/20 09:00 01/31/20 09:20 Humulin 70/30 SC 60 unit QAM BOGDAN Administration Insulin Human Lispro 0 units 01/30/20 16:47 01/30/20 18:28 Humalog SC 9 unit .AGGRESSIVE SLIDING PRN Administration Aggressive Correctional Scale Morphine Sulfate 2 mg 01/30/20 16:49 01/31/20 09:19 Morphine SLOW IVP 2 mg Q4H PRN Administration Severe Pain (7-10) - Exam General Appearance: awake alert Eye: PERRL, anicteric sclera ENT: no oropharyngeal lesions, moist mucosa Neck: supple, no JVD Heart: RRR, no murmur Respiratory: no wheezes, no rales Gastrointestinal: soft, non-tender, non-distended, normal bowel sounds Extremities: no cyanosis, 1+ LE edema Extremities - other findings: right foot dorsal area erythema is receding Neurological: cranial nerve grossly intact, no focal deficits Psychiatric: normal affect, A&O x 3 Hosp A/P (1) Cellulitis of right leg Code(s): L03.115 - CELLULITIS OF RIGHT LOWER LIMB Status: Acute (2) Sepsis Code(s): A41.9 - SEPSIS, UNSPECIFIED ORGANISM Status: Acute Qualifiers: Sepsis type: sepsis due to unspecified organism Sepsis acute organ dysfunction status: without acute organ dysfunction Qualified Code(s): A41.9 - Sepsis, unspecified organism (3) Anemia, normocytic normochromic Code(s): D64.9 - ANEMIA, UNSPECIFIED Status: Chronic (4) DM2 (diabetes mellitus, type 2) Status: Chronic Qualifiers: Diabetes mellitus clinical abstractor insulin use: with clinical abstractor use Diabetes mellitus complication detail: with polyneuropathy (5) Diabetic neuropathy Code(s): E11.40 - TYPE 2 DIABETES MELLITUS WITH DIABETIC NEUROPATHY, UNSP Status: Chronic Qualifiers: Diabetes mellitus type: type 2 (6) HTN (hypertension) Code(s): I10 - ESSENTIAL (PRIMARY) HYPERTENSION Status: Chronic Qualifiers: - Plan hemostable is on vanc and zosyn xray foot didn't reveal any foreign body but patient feels one, will get surgery opinion has elevated wbc upto 25k this am, ?leukemoid reaction continue home dose insulin with coverage to amb as tolerated
[2020-01-31 12:21] LABS: SARS-CoV-2 MS2 Positive; SARS-CoV-2 N Gene Negative; SARS-CoV-2 S Gene Negative; SARS-CoV-2 by NAA Not Detected (NotDetected); SARS-CoV-2 orf1ab Negative
[2020-01-31] MEDS: HYDROcodone/Acetaminophen 5/325 mg Tablet PO PRN ×2 (12:38→18:44)
[2020-01-31] MEDS: HumaLOG 300 UNITS/3 ML VIAL SC PRN ×2 (12:41→17:40)
--- NOTE | 2020-01-31 12:52 | PDOC.CONS ---
- Consultation CHIEF COMPLAINT: Right foot pain HISTORY OF PRESENT ILLNESS: 49-year-old female presents with right foot pain of unsure duration. The patient noted increasing erythema and pain and presented to the emergency department. Denies fever, nausea, vomiting, or chills. REVIEW OF SYSTEMS: General: Denies recent weight changes, fever, or chills. Eyes: Denies visual changes, pain, or irritation ENT: Denies changes in hearing, nasal discharge, or sore throat Cardiovascular: Denies chest pain, palpitations, shortness of breath, or edema. Respiratory: Denies cough, shortness of breath, or wheezing Gastrointestinal: Denies abdominal pain, nausea, or vomiting. Genitourinary: Denies frequent urination or dysuria Musculoskeletal: Per HPI Integumentary: Denies abnormal rashes, sores, or skin lesions Neurological: Denies numbness, tingling, or weakness. Psychiatric: Denies new onset anxiety or depression Endocrine: Denies temperature intolerances, polyuria, or excessive thirst Hematologic: Denies abnormal bruising or bleeding PAST MEDICAL HISTORY: Diabetes mellitus with neuropathy PAST SURGICAL HISTORY: 3 sections Left great toe amputation Previous incision and drainage FAMILY HISTORY: Noncontributory SOCIAL HISTORY Never smoker, denies illicit drug use, endorses occasional alcohol consumption. PHYSICAL EXAM: Vital Signs: HR 81 BP 97/64 T 98 RR [ ] SpO2 [ ] General: Alert and oriented, no acute distress. Obese ENT: Sclera anicteric, pupils equal and reactive, mucous membranes moist Neck: No jugular venous distention, trachea midline Cardiovascular: Regular rate and rhythm Pulmonary: Clear to auscultation Abdominal: Soft, nondistended, nontender Genitourinary: Normal anatomy Rectal: Deferred Integument: No abnormal rashes or lesions Musculoskeletal: No gross deformities or edema, normal range of motion. Erythema and were centered around the second toe of the right foot. No area of fluctuance, purulent discharge, or evidence of abscess. Left foot has a plantar ulcer approximately 2 cm with clean base and fibrinous material. Minimal erythema and no evidence of infection. LABORATORY: Laboratory analysis reviewed and demonstrates a white blood cell count of 25.6 and creatinine 1.2 IMAGING: X-ray foot reviewed as well as radials interpretation. Demonstrates no acute abnormalities ASSESSMENT: 49-year-old female with right foot cellulitis and left foot diabetic ulcer secondary to diabetes. PLAN: No surgical indication at this time for right foot cellulitis. Recommend continuing antibiotic therapy per hospitalist team. Consider wound care consultation for bedside debridement and care of the left foot plantar ulcer. We will follow peripherally. Please call for any further questions.
--- NOTE | 2020-01-31 13:28 | RAD ---
PORTABLE CHEST: HISTORY: Cough. Evaluate for infiltrate. COMPARISON: 01/05/2020 exam. FINDINGS: Heart size and mediastinum are within normal limits. The lungs appear clear of any infiltrative proc ess. IMPRESSION: No active intrathoracic disease. POS: MARISOL
[2020-01-31] MEDS ORDERED: Vancomycin 1 GM in Premix Bag 1 BAG IVPB SCH (14:00)
[2020-02-01] MEDS: Piperacillin/Tazobactam 3.375 GM in Sodium Chloride 0.9% 100 ML IVPB SCH ×3 (01:27→18:13)
[2020-02-01 05:20] LABS: #Basophils 0.1 thou/uL (0.0-0.2); #Eosinphils 0.4 thou/uL (0.0-0.7); #Lymphocytes 3.4 thou/uL (1.20-3.40); #Monocytes 1.3 thou/uL (0.11-0.59); #Neutrophils 15.9 thou/uL (1.40-6.50); %Basophils 0.4 % (0.0-1.0); %Eosinophils 2.1 % (0.0-10.0); %Lymphocytes 16.2 % (21.0-51.0); %Monocytes 6.1 % (0.0-10.0); %Neutrophils 75.1 % (42.0-75.0); Mean Corpuscular Hemoglobin 26.5 pg (27.0-31.0); Mean Corpuscular Volume 85.6 fL (78.0-98.0); Mean Platelet Volume 8.6 fL (7.4-10.4); Platelet Count 285 thou/uL (130-400); RBC Distribution Width 12.4 % (11.5-14.5); Red Blood Cell (RBC) Count 4.52 mill/uL (4.20-5.40); White Blood Cell (WBC) Count 21.1 thou/uL (4.8-10.8)
[2020-02-01 05:41] LABS: Anion Gap 12 mmol/L (10-20); BUN (Urea Nitrogen) 13 mg/dL (7.0-18.7); Calc. Creatinine Clearance 81 mL/min (70-130); Calcium 8.7 mg/dL (7.8-10.44); Carbon Dioxide 25 mmol/L (22-29); Chloride 101 mmol/L (98-107); Estimated GFR-MDRD 45; Glucose 117 mg/dL (70-105); Potassium 3.5 mmol/L (3.5-5.1); Sodium 134 mmol/L (136-145)
[2020-02-01] MEDS: HumuLIN 70/30 (300 UNITS/3 ML VIAL) SC SCH ×2 (08:56→21:24)
[2020-02-01] MEDS: Gabapentin 300 MG CAP PO SCH ×2 (08:56→21:22)
[2020-02-01] MEDS: Enoxaparin Sodium 40 MG/0.4 ML SYRINGE SC SCH (08:56)
[2020-02-01] MEDS: HYDROcodone/Acetaminophen 5/325 mg Tablet PO PRN ×3 (09:03→21:23)
[2020-02-01] MEDS: Morphine 2 MG/ML VIAL SLOW IVP PRN (12:06)
[2020-02-01] MEDS: Vancomycin 1 GM in Premix Bag 1 BAG IVPB SCH (13:53)
--- NOTE | 2020-02-01 14:36 | PDOC.HOSPP ---
- Subjective Encounter Date: 02/01/20 Encounter Time: 11:20 Subjective: right foot pain is better is amb in room - Objective Vital Signs & Weight: Vital Signs (12 hours) Temp Pulse Resp BP BP Pulse Ox 02/01/20 08:04 99.3 F 84 18 145/75 H 98 02/01/20 08:00 98 02/01/20 03:57 98.3 F 85 18 108/60 98 Weight Admit Weight 207 lb 1.6 oz Weight 207 lb 1.6 oz I&O: 01/31/20 02/01/20 02/02/20 06:59 06:59 06:59 Intake Total 830 1720 Balance 830 1720 Result Diagrams: 02/01/20 05:11 02/01/20 05:11 Additional Labs: Accuchecks 02/01/20 02/01/20 01/31/20 12:16 05:21 19:58 POC Glucose 110 122 H 132 H 01/31/20 16:49 POC Glucose 169 H Hospitalist ROS - Medication Medications: Active Medications Generic Name Dose Route Start Last Admin Trade Name Freq PRN Reason Stop Dose Admin Acetaminophen 650 mg 01/30/20 16:47 01/31/20 22:22 Tylenol PO 650 mg Q4H PRN Administration Headache/Fever/Mild Pain (1-3) Hydrocodone Bitart/Acetaminophen 1 tab 01/30/20 16:47 02/01/20 13:54 [place] 5/325 PO 1 tab Q4H PRN Administration Moderate Pain (4-6) Enoxaparin Sodium 40 mg 01/31/20 09:00 02/01/20 08:56 Lovenox SC 40 mg 0900 BOGDAN Administration Gabapentin 600 mg 01/30/20 21:00 02/01/20 08:56 Neurontin PO 600 mg BID BOGDAN Administration Piperacillin Sod/Tazobactam 100 mls @ 200 mls/hr 01/30/20 17:00 02/01/20 09: 00 Sod 3.375 gm/ Sodium Chloride IVPB 100 mls 0100,0900,1700 BOGDAN Administration Vancomycin HCl 1 gm/ Device 200 mls @ 200 mls/hr 02/01/20 14:00 02/01/20 13: 53 IVPB 200 mls 1400 BOGDAN Administration Insulin Human Isoph/Insulin Regular 30 units 01/30/20 21:00 01/31/20 22:24 Humulin 70/30 SC 30 unit QPM BOGDAN Administration Insulin Human Isoph/Insulin Regular 60 units 01/31/20 09:00 02/01/20 08:56 Humulin 70/30 SC 60 unit QAM BOGDAN Administration Insulin Human Lispro 0 units 01/30/20 16:47 01/31/20 17:40 Humalog SC 3 unit .AGGRESSIVE SLIDING PRN Administration Aggressive Correctional Scale Morphine Sulfate 2 mg 01/30/20 16:49 02/01/20 12:06 Morphine SLOW IVP 2 mg Q4H PRN Administration Severe Pain (7-10) - Exam General Appearance: awake alert Eye: PERRL, anicteric sclera ENT: no oropharyngeal lesions, moist mucosa Neck: supple, no JVD Heart: RRR, no murmur Respiratory: no wheezes, no rales Gastrointestinal: soft, non-tender, non-distended, normal bowel sounds Extremities - other findings: right plantar aspect has purulence with a blister over base of 2nd toe Neurological: cranial nerve grossly intact, no focal deficits Hosp A/P (1) Cellulitis of right leg Code(s): L03.115 - CELLULITIS OF RIGHT LOWER LIMB Status: Acute (2) Sepsis Code(s): A41.9 - SEPSIS, UNSPECIFIED ORGANISM Status: Acute Qualifiers: Sepsis type: sepsis due to unspecified organism Sepsis acute organ dysfunction status: without acute organ dysfunction Qualified Code(s): A41.9 - Sepsis, unspecified organism (3) Anemia, normocytic normochromic Code(s): D64.9 - ANEMIA, UNSPECIFIED Status: Chronic (4) DM2 (diabetes mellitus, type 2) Status: Chronic Qualifiers: Diabetes mellitus analytic programmer insulin use: with jail use Diabetes mellitus complication detail: with polyneuropathy (5) Diabetic neuropathy Code(s): E11.40 - TYPE 2 DIABETES MELLITUS WITH DIABETIC NEUROPATHY, UNSP Status: Chronic Qualifiers: Diabetes mellitus type: type 2 (6) HTN (hypertension) Code(s): I10 - ESSENTIAL (PRIMARY) HYPERTENSION Status: Chronic Qualifiers: - Plan hemostable is on vanc and zosyn xray foot didn't reveal any foreign body, has developed a purulent blister on plantar aspect of 1st and 2nd right toe/MT has elevated wbc, ?leukemoid reaction continue home dose insulin with coverage to amb as tolerated
--- NOTE | 2020-02-01 19:43 | RAD ---
Exam:Left foot 3 views HISTORY: Previous amputation. Evaluate for second and third metatarsal osteomyelitis COMPARISON: 12/28/2019 FINDINGS: Stable soft tissue ulceration and soft tissue swelling. Stable postsurgical changes involvi ng the first, second and third digits. Stable subluxation of the fourth metatarsal phalangeal joint space. No radiographic evidence of osteomyelitis. IMPRESSION: 1. Stable soft tissue swelling and soft tissue ulcerations. No radiographic evidence of osteomyelitis .
--- NOTE | 2020-02-01 22:04 | CON ---
DATE OF CONSULTATION: HISTORY OF PRESENT ILLNESS: Jeanne Olson is a 49-year-old female, who I have known from past consultations. I saw her in July 2019 for an amputation of left great toe metatarsal and right foot incision and drainage, debridement of plantar ulceration proximally. In February 2019, for an amputation of left second and third toes and metatarsals. In February 09, 2019, explored plantar wound left foot with incision and drainage and culture. The patient is admitted on this occasion with cellulitis of her right foot. She was walking in the hospital and developed drainage from the plantar wound, left foot. X-rays of the right foot did not reveal any acute changes. X-ray of the left foot had not been performed. On exam, right second toe is edematous, slightly discolored. There is cellulitis over the dorsum of the foot. There is blistering skin around the second toe. This when peeled back revealed some superficial excoriations, but I cannot appreciate any sinus tracts. On the left foot, the patient has a plantar opening, when probe it extends to the dorsum of the foot into the third metatarsal, possibly the second. I would recommend the patient, she undergo surgical debridement of left foot. Continue with the intravenous antibiotics for the right foot. We will obtain plain x-rays of the left foot in the interim. We will plan intervention on Saturday. ALLERGIES: CEFTRIAXONE. SOCIAL HISTORY: Tobacco, none. Alcohol, none. MEDICATIONS: Vancomycin and Zosyn in the hospital. Outpatient; 1. Gabapentin. 2. Insulin. PAST SURGICAL HISTORY: Multiple incision and drainage, right foot and left foot. Amputation of left first, second, and third toes and metatarsal left foot left fourth and fifth toes remain intact. C-sections x3 and left shoulder surgery. PAST MEDICAL HISTORY: Diabetes mellitus, neuropathy, and insulin dependent. PHYSICAL EXAMINATION: VITAL SIGNS: 5 feet, 207 pounds, and 39 BMI. 99.3, 84, and 145/75. HEAD, EARS, EYES, NOSE, AND THROAT: Unremarkable. LUNGS: Clear to auscultation. CARDIAC: Regular rate and rhythm without murmur or gallop. ABDOMEN: Soft and nontender. EXTREMITIES: Palpable femoral and pedal pulses bilaterally toes. Cellulitis of right foot extending to the mid foot. There is swelling of the second toe. Blistering skin around this was peeled back and there were some superficial excoriations in the web space, but no evidence of sinus tracts. There is no evidence of injury or penetrating wound. Left foot reveals prior amputations; left first, second, and third toes metatarsals. There was some plantar neuropathic ulcer about 2 cm in diameter when probed, extending to the dorsum of the foot. It communicates to the third and possible second metatarsal. Third and fourth toes are normal. LABORATORY DATA: White count 24,000 on admission and 21,000 today. BUN 13, creatinine 1.28, and glucose 120 to 110. Cultures coagulase-negative Staph. Culture of the feet has not been obtained. ASSESSMENT AND PLAN: 1. Cellulitis, right second toe. I do not see any reason for intervention. We continue the intravenous antibiotics for the cellulitis. No surgical intervention is warranted at this time. 2. Open neuropathic wound communicating to third metatarsal. Clinically, she needs a surgical exploration and resection, debridement, resection of third metatarsal, perhaps a second and others as indicated based on intraoperative findings. She consents. She will need a wound VAC postoperatively. 3. Diabetes mellitus. Job ID: [id number]
[2020-02-02] MEDS: Piperacillin/Tazobactam 3.375 GM in Sodium Chloride 0.9% 100 ML IVPB SCH ×3 (01:20→17:26)
[2020-02-02 06:28] LABS: #Basophils 0.1 thou/uL (0.0-0.2); #Eosinphils 0.4 thou/uL (0.0-0.7); #Lymphocytes 3.2 thou/uL (1.20-3.40); #Monocytes 1.5 thou/uL (0.11-0.59); #Neutrophils 14.3 thou/uL (1.40-6.50); %Basophils 0.4 % (0.0-1.0); %Eosinophils 2.2 % (0.0-10.0); %Lymphocytes 16.4 % (21.0-51.0); %Monocytes 7.8 % (0.0-10.0); %Neutrophils 73.2 % (42.0-75.0); Hemoglobin 11.1 g/dL (12.0-16.0); Mean Corpuscular HGB CONC 30.9 g/dL (32.0-36.0); Mean Corpuscular Hemoglobin 26.4 pg (27.0-31.0); Mean Corpuscular Volume 85.5 fL (78.0-98.0); Mean Platelet Volume 8.8 fL (7.4-10.4); Platelet Count 296 thou/uL (130-400); RBC Distribution Width 12.6 % (11.5-14.5); White Blood Cell (WBC) Count 19.5 thou/uL (4.8-10.8)
[2020-02-02 06:50] LABS: Anion Gap 13 mmol/L (10-20); BUN (Urea Nitrogen) 11 mg/dL (7.0-18.7); Calc. Creatinine Clearance 95 mL/min (70-130); Calcium 8.5 mg/dL (7.8-10.44); Carbon Dioxide 26 mmol/L (22-29); Chloride 101 mmol/L (98-107); Estimated GFR-MDRD 54; Glucose 126 mg/dL (70-105); Potassium 3.7 mmol/L (3.5-5.1); Sodium 136 mmol/L (136-145)
[2020-02-02] MEDS: Enoxaparin Sodium 40 MG/0.4 ML SYRINGE SC SCH (09:19)
[2020-02-02] MEDS: HumuLIN 70/30 (300 UNITS/3 ML VIAL) SC SCH ×2 (09:19→22:56)
[2020-02-02] MEDS: Gabapentin 300 MG CAP PO SCH ×2 (09:20→22:53)
[2020-02-02] MEDS: HYDROcodone/Acetaminophen 5/325 mg Tablet PO PRN ×3 (09:20→22:54)
--- NOTE | 2020-02-02 13:01 | PDOC.HOSPP ---
- Subjective Encounter Date: 02/02/20 Encounter Time: 09:30 Subjective: awake, pain is better second toe on right side is discolored now - Objective Vital Signs & Weight: Vital Signs (12 hours) Temp Pulse Resp BP Pulse Ox 02/02/20 07:28 100.7 F H 79 18 130/69 97 Weight Admit Weight 207 lb 1.6 oz Weight 207 lb 1.6 oz I&O: 02/01/20 02/02/20 02/03/20 06:59 06:59 06:59 Intake Total 1720 Balance 1720 Result Diagrams: 02/02/20 05:51 02/02/20 05:50 Additional Labs: Accuchecks 02/02/20 02/02/20 02/01/20 11:11 05:20 19:55 POC Glucose 135 H 130 H 105 02/01/20 16:53 POC Glucose 121 H Hospitalist ROS - Medication Medications: Active Medications Generic Name Dose Route Start Last Admin Trade Name Freq PRN Reason Stop Dose Admin Acetaminophen 650 mg 01/30/20 16:47 01/31/20 22:22 Tylenol PO 650 mg Q4H PRN Administration Headache/Fever/Mild Pain (1-3) Hydrocodone Bitart/Acetaminophen 1 tab 01/30/20 16:47 02/02/20 09:20 [place] 5/325 PO 1 tab Q4H PRN Administration Moderate Pain (4-6) Enoxaparin Sodium 40 mg 01/31/20 09:00 02/02/20 09:19 Lovenox SC 40 mg 0900 BOGDAN Administration Gabapentin 600 mg 01/30/20 21:00 02/02/20 09:20 Neurontin PO 600 mg BID BOGDAN Administration Piperacillin Sod/Tazobactam 100 mls @ 200 mls/hr 01/30/20 17:00 02/02/20 09: 26 Sod 3.375 gm/ Sodium Chloride IVPB 100 mls 0100,0900,1700 BOGDAN Administration Vancomycin HCl 1 gm/ Device 200 mls @ 200 mls/hr 02/01/20 14:00 02/01/20 13: 53 IVPB 200 mls 1400 BOGDAN Administration Insulin Human Isoph/Insulin Regular 30 units 01/30/20 21:00 02/01/20 21:24 Humulin 70/30 SC 30 unit QPM BOGDAN Administration Insulin Human Isoph/Insulin Regular 60 units 01/31/20 09:00 02/02/20 09:19 Humulin 70/30 SC 60 unit QAM BOGDAN Administration Insulin Human Lispro 0 units 01/30/20 16:47 01/31/20 17:40 Humalog SC 3 unit .AGGRESSIVE SLIDING PRN Administration Aggressive Correctional Scale Morphine Sulfate 2 mg 01/30/20 16:49 02/01/20 12:06 Morphine SLOW IVP 2 mg Q4H PRN Administration Severe Pain (7-10) Ondansetron HCl 4 mg 01/30/20 16:47 02/02/20 09:19 Zofran IVP 4 mg Q6H PRN Administration Nausea/Vomiting - Exam General Appearance: awake alert Eye: PERRL, anicteric sclera ENT: no oropharyngeal lesions, moist mucosa Neck: supple, no JVD Heart: RRR, no murmur Respiratory: no wheezes, no rales Gastrointestinal: soft, non-tender, non-distended, normal bowel sounds Extremities - other findings: right 2nd toe wet gangrenous changes have started Neurological: cranial nerve grossly intact, no focal deficits Psychiatric: normal affect, A&O x 3 Hosp A/P (1) Cellulitis of right leg Code(s): L03.115 - CELLULITIS OF RIGHT LOWER LIMB Status: Acute (2) Sepsis Code(s): A41.9 - SEPSIS, UNSPECIFIED ORGANISM Status: Acute Qualifiers: Sepsis type: sepsis due to unspecified organism Sepsis acute organ dysfunction status: without acute organ dysfunction Qualified Code(s): A41.9 - Sepsis, unspecified organism (3) Anemia, normocytic normochromic Code(s): D64.9 - ANEMIA, UNSPECIFIED Status: Chronic (4) DM2 (diabetes mellitus, type 2) Status: Chronic Qualifiers: Diabetes mellitus skilled nursing insulin use: with skilled nursing use Diabetes mellitus complication detail: with polyneuropathy (5) Diabetic neuropathy Code(s): E11.40 - TYPE 2 DIABETES MELLITUS WITH DIABETIC NEUROPATHY, UNSP Status: Chronic Qualifiers: Diabetes mellitus type: type 2 (6) HTN (hypertension) Code(s): I10 - ESSENTIAL (PRIMARY) HYPERTENSION Status: Chronic Qualifiers: - Plan hemostable is on vanc and zosyn has developed a purulent blister on plantar aspect of 1st and 2nd right toe/MT, discolored 2nd toe now with wet gangrene elevated wbc is starting to trend down continue home dose insulin with coverage to amb as tolerated for debridement of left foot plantar ulcer and likely her left foot ulcer as well by in am.
[2020-02-02] MEDS: Vancomycin 1 GM in Premix Bag 1 BAG IVPB SCH (13:41)
[2020-02-03] MEDS: Piperacillin/Tazobactam 3.375 GM in Sodium Chloride 0.9% 100 ML IVPB SCH ×3 (01:50→16:48)
[2020-02-03] MEDS: HYDROcodone/Acetaminophen 5/325 mg Tablet PO PRN (05:00)
[2020-02-03] MEDS: Enoxaparin Sodium 40 MG/0.4 ML SYRINGE SC SCH (07:43)
[2020-02-03] MEDS ORDERED: Sodium Chloride 0.9% 1,000 ML IV SCH (08:00)
[2020-02-03] MEDS: HumuLIN 70/30 (300 UNITS/3 ML VIAL) SC SCH ×2 (08:39→20:48)
[2020-02-03] MEDS: Gabapentin 300 MG CAP PO SCH ×3 (08:40→20:43)
[2020-02-03] MEDS ORDERED: PROPOFOL 200 MG/20 ML VIAL ONE (09:25)
[2020-02-03] MEDS ORDERED: Lidocaine 1% PF 5 ML VIAL ONE (09:25)
[2020-02-03] MEDS ORDERED: Fentanyl 100 MCG/2 ML VIAL ONE ×3 (10:54→13:23)
[2020-02-03] MEDS ORDERED: Promethazine HCl 25 MG/ML VIAL SLOW IVP PRN (13:32)
[2020-02-03] MEDS ORDERED: Promethazine HCl 25 MG/ML VIAL IM PRN (13:32)
[2020-02-03] MEDS ORDERED: Ondansetron HCl/PF 4 MG/2 ML Vial IVP PRN (13:32)
[2020-02-03] MEDS ORDERED: traMADol HCl 50 MG TAB PO PRN (13:41)
[2020-02-03] MEDS ORDERED: Acetaminophen 500 MG TAB PO PRN (13:41)
[2020-02-03] MEDS: Vancomycin 1 GM in Premix Bag 1 BAG IVPB SCH (14:04)
--- NOTE | 2020-02-03 14:11 | PDOC.HOSPP ---
- Subjective Encounter Date: 02/03/20 Encounter Time: 12:00 Subjective: still has pain in her right foot area is npo for surgery this afternoon - Objective Vital Signs & Weight: Vital Signs (12 hours) Temp Pulse Resp BP Pulse Ox 02/03/20 07:53 98.3 F 72 18 102/66 98 Weight Admit Weight 207 lb 1.6 oz Weight 207 lb 1.6 oz Result Diagrams: 02/02/20 05:51 02/02/20 05:50 Additional Labs: Accuchecks 02/03/20 02/03/20 02/03/20 13:03 10:31 04:53 POC Glucose 198 H 150 H 126 H 02/02/20 02/02/20 19:36 15:46 POC Glucose 133 H 133 H Hospitalist ROS - Medication Medications: Active Medications Generic Name Dose Route Start Last Admin Trade Name Freq PRN Reason Stop Dose Admin Hydrocodone Bitart/Acetaminophen 1 tab 01/30/20 16:47 02/03/20 05:00 [place] 5/325 PO 1 tab Q4H PRN Administration Moderate Pain (4-6) Enoxaparin Sodium 40 mg 01/31/20 09:00 02/03/20 07:43 Lovenox SC Not Given 0900 BOGDAN Gabapentin 600 mg 01/30/20 21:00 02/03/20 08:40 Neurontin PO Not Given BID BOGDAN Piperacillin Sod/Tazobactam 100 mls @ 200 mls/hr 01/30/20 17:00 02/03/20 08: 38 Sod 3.375 gm/ Sodium Chloride IVPB 100 mls 0100,0900,1700 BOGDAN Administration Vancomycin HCl 1 gm/ Device 200 mls @ 200 mls/hr 02/01/20 14:00 02/03/20 14: 04 IVPB 200 mls 1400 BOGDAN Administration Sodium Chloride 1,000 mls @ 100 mls/hr 02/03/20 08:00 02/03/20 01:50 Normal Saline 0.9% IV 1,000 mls .Q10H BOGDAN Administration Insulin Human Isoph/Insulin Regular 30 units 01/30/20 21:00 02/02/20 22:56 Humulin 70/30 SC Not Given QPM BOGDAN Insulin Human Isoph/Insulin Regular 60 units 01/31/20 09:00 02/03/20 08:39 Humulin 70/30 SC Not Given QAM [facility] Insulin Human Lispro 0 units 01/30/20 16:47 01/31/20 17:40 Humalog SC 3 unit .AGGRESSIVE SLIDING PRN Administration Aggressive Correctional Scale Morphine Sulfate 2 mg 01/30/20 16:49 02/01/20 12:06 Morphine SLOW IVP 2 mg Q4H PRN Administration Severe Pain (7-10) Ondansetron HCl 4 mg 01/30/20 16:47 02/02/20 09:19 Zofran IVP 4 mg Q6H PRN Administration Nausea/Vomiting - Exam General Appearance: awake alert Eye: PERRL, anicteric sclera ENT: no oropharyngeal lesions, moist mucosa Neck: supple, no JVD Heart: RRR, no murmur Respiratory: no wheezes, no rales Gastrointestinal: soft, non-tender, non-distended, normal bowel sounds Extremities - other findings: right 2nd toe is discol, forefoot erythema+ and edema Neurological: cranial nerve grossly intact, no focal deficits Psychiatric: normal affect, A&O x 3 Hosp A/P (1) Cellulitis of right leg Code(s): L03.115 - CELLULITIS OF RIGHT LOWER LIMB Status: Acute (2) Sepsis Code(s): A41.9 - SEPSIS, UNSPECIFIED ORGANISM Status: Acute Qualifiers: Sepsis type: sepsis due to unspecified organism Sepsis acute organ dysfunction status: without acute organ dysfunction Qualified Code(s): A41.9 - Sepsis, unspecified organism (3) Anemia, normocytic normochromic Code(s): D64.9 - ANEMIA, UNSPECIFIED Status: Chronic (4) DM2 (diabetes mellitus, type 2) Status: Chronic Qualifiers: 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 Diabetes mellitus complication detail: with polyneuropathy (5) Diabetic neuropathy Code(s): E11.40 - TYPE 2 DIABETES MELLITUS WITH DIABETIC NEUROPATHY, UNSP Status: Chronic Qualifiers: Diabetes mellitus type: type 2 (6) HTN (hypertension) Code(s): I10 - ESSENTIAL (PRIMARY) HYPERTENSION Status: Chronic Qualifiers: - Plan hemostable is on vanc and zosyn has developed a purulent ulcer on plantar aspect of 1st and 2nd right toe/MT, discolored 2nd toe now with wet gangrene elevated wbc is starting to trend down continue home dose insulin with coverage to amb as tolerated for debridement of left foot plantar ulcer and likely her right foot ulcer as well by today
[2020-02-03] MEDS: traMADol HCl 50 MG TAB PO PRN (15:36)
--- NOTE | 2020-02-03 15:54 | OP ---
DATE OF PROCEDURE: 02/03/2020 PREOPERATIVE DIAGNOSES: 1. 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 2. Severe soft tissue infection and gangrene, right 2nd toe. POSTOPERATIVE DIAGNOSES: 1. 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 2. Severe soft tissue infection and gangrene, right 2nd toe. 3. Underlying pus and sent for culture and sensitivity. PROCEDURES PERFORMED: 1. Debridement of left foot plantar neuropathic ulceration, excisional, resectional. 2. Sharp resection of neuropathic ulcer, skin, subcutaneous tissue, and 3rd metatarsal. 3. Wound left open for healing by secondary intention and wound VAC applied. DESCRIPTION OF PROCEDURE: Right foot 2nd toe was gangrenous and incision was made in a racquet type for excision of the right 2nd toe and metatarsal, carried down to skin and subcutaneous tissue, identifying abundant purulent infection in the soft tissues, sent for culture and sensitivity. Incision was carried down to the metatarsal, which was resected with a bone cutter, resecting approximately with rongeurs. Wound irrigated. There was good bleeding controlled with cautery. Good hemostasis noted. Connective tissue debrided sharply. Wound Care placed a wound VAC. The patient tolerated the procedure well. Job ID: [id number]
[2020-02-03] MEDS: HumaLOG 300 UNITS/3 ML VIAL SC PRN (17:00)
[2020-02-03] MEDS: Morphine 2 MG/ML VIAL SLOW IVP PRN (20:40)
[2020-02-04] MEDS: Piperacillin/Tazobactam 3.375 GM in Sodium Chloride 0.9% 100 ML IVPB SCH ×3 (00:27→17:14)
[2020-02-04] MEDS: Morphine 2 MG/ML VIAL SLOW IVP PRN ×5 (00:27→23:29)
[2020-02-04] MEDS: Gabapentin 300 MG CAP PO SCH ×2 (09:06→20:22)
[2020-02-04] MEDS: Enoxaparin Sodium 40 MG/0.4 ML SYRINGE SC SCH (09:06)
[2020-02-04] MEDS: HumuLIN 70/30 (300 UNITS/3 ML VIAL) SC SCH ×2 (09:08→20:27)
[2020-02-04] MEDS ORDERED: Cepastat Lozenges 1 LOZ PO SCH (11:45)
[2020-02-04] MEDS ORDERED: Benzonatate 100 MG CAP PO SCH (11:45)
[2020-02-04] MEDS: HumaLOG 300 UNITS/3 ML VIAL SC PRN (12:08)
--- NOTE | 2020-02-04 12:27 | PDOC.HOSPP ---
- Subjective Encounter Date: 02/04/20 Encounter Time: 08:45 Subjective: Patient is stable after surgery yesterday and reports no pain. - Objective Vital Signs & Weight: Vital Signs (12 hours) Temp Pulse Resp BP Pulse Ox 02/04/20 08:00 98 F 81 16 112/82 99 Weight Admit Weight 93.939 kg Weight 93.939 kg I&O: 02/03/20 02/04/20 02/05/20 06:59 06:59 06:59 Intake Total 1270 Balance 1270 Result Diagrams: 02/02/20 05:51 02/02/20 05:50 Additional Labs: Accuchecks 02/04/20 02/04/20 02/03/20 11:07 06:39 20:07 POC Glucose 225 H 135 H 198 H 02/03/20 02/03/20 16:38 13:03 POC Glucose 255 H 198 H Hospitalist ROS - Medication Medications: Active Medications Generic Name Dose Route Start Last Admin Trade Name Freq PRN Reason Stop Dose Admin Hydrocodone Bitart/Acetaminophen 1 tab 01/30/20 16:47 02/03/20 05:00 [place] 5/325 PO 1 tab Q4H PRN Administration Moderate Pain (4-6) Benzonatate 200 mg 02/04/20 11:45 02/04/20 12:07 Tessalon PO 02/04/20 13:45 200 mg NOW BOGDAN Administration Enoxaparin Sodium 40 mg 01/31/20 09:00 02/04/20 09:06 Lovenox SC 40 mg 0900 BOGDAN Administration Gabapentin 600 mg 01/30/20 21:00 02/04/20 09:06 Neurontin PO 600 mg BID BOGDAN Administration Piperacillin Sod/Tazobactam 100 mls @ 200 mls/hr 01/30/20 17:00 02/04/20 09: 13 Sod 3.375 gm/ Sodium Chloride IVPB 100 mls 0100,0900,1700 BOGDAN Administration Vancomycin HCl 1 gm/ Device 200 mls @ 200 mls/hr 02/01/20 14:00 02/03/20 14: 04 IVPB 200 mls 1400 BOGDAN Administration Insulin Human Isoph/Insulin Regular 30 units 01/30/20 21:00 02/03/20 20:48 Humulin 70/30 SC 30 unit QPM BOGDAN Administration Insulin Human Isoph/Insulin Regular 60 units 01/31/20 09:00 02/04/20 09:08 Humulin 70/30 SC 60 unit QAM BOGDAN Administration Insulin Human Lispro 0 units 01/30/20 16:47 02/04/20 12:08 Humalog SC 6 unit .AGGRESSIVE SLIDING PRN Administration Aggressive Correctional Scale Morphine Sulfate 2 mg 01/30/20 16:49 02/04/20 12:13 Morphine SLOW IVP 2 mg Q4H PRN Administration Severe Pain (7-10) Ondansetron HCl 4 mg 01/30/20 16:47 02/02/20 09:19 Zofran IVP 4 mg Q6H PRN Administration Nausea/Vomiting Sodium Chloride 10 ml 02/03/20 21:00 02/04/20 09:08 Flush - Normal Saline IVF 10 ml Q12HR BOGDAN Administration Sodium Chloride 10 ml 02/03/20 13:42 02/03/20 17:03 Flush - Normal Saline IVF 10 ml PRN PRN Administration Saline Flush Tramadol HCl 100 mg 02/03/20 13:41 02/03/20 15:36 Ultram PO 100 mg Q6H PRN Administration Moderate Pain (4-6) - Exam General Appearance: NAD, awake alert Eye: PERRL, anicteric sclera ENT: normocephalic atraumatic Neck: supple, symmetric Heart: RRR, no murmur Respiratory: CTAB, no wheezes Gastrointestinal: soft, non-tender, non-distended Extremities: no cyanosis, no clubbing Psychiatric: A&O x 3 Hosp A/P (1) Sepsis Code(s): A41.9 - SEPSIS, UNSPECIFIED ORGANISM Status: Acute Qualifiers: Sepsis type: sepsis due to unspecified organism Sepsis acute organ dysfunction status: without acute organ dysfunction Qualified Code(s): A41.9 - Sepsis, unspecified organism (2) Acute on chronic renal failure Code(s): N17.9 - ACUTE KIDNEY FAILURE, UNSPECIFIED; N18.9 - CHRONIC KIDNEY DISEASE, UNSPECIFIED Status: Acute (3) Cellulitis of right foot Code(s): L03.115 - CELLULITIS OF RIGHT LOWER LIMB Status: Acute (4) Diabetic foot infection Code(s): E11.628 - TYPE 2 DIABETES MELLITUS WITH OTHER SKIN COMPLICATIONS; L08.9 - LOCAL INFECTION OF THE SKIN AND SUBCUTANEOUS TISSUE, UNSP Status: Acute (5) Osteomyelitis of left foot Code(s): M86.9 - OSTEOMYELITIS, UNSPECIFIED Status: Chronic (6) Acute renal failure Status: Acute (7) Hypoglycemia associated with diabetes Code(s): E11.649 - TYPE 2 DIABETES MELLITUS WITH HYPOGLYCEMIA WITHOUT COMA Status: Acute (8) Hypokalemia Code(s): E87.6 - HYPOKALEMIA Status: Resolved (9) MRSA infection Code(s): A49.02 - METHICILLIN RESIS STAPH INFECTION, UNSP SITE Status: Acute (10) Anemia, normocytic normochromic Code(s): D64.9 - ANEMIA, UNSPECIFIED Status: Chronic (11) HTN (hypertension) Code(s): I10 - ESSENTIAL (PRIMARY) HYPERTENSION Status: Chronic Qualifiers: - Plan DM: Monitor glucose level, continue meds Sepsis: monitor fever and leukocyte count, continue Abx Post-Op: Management per general surgery
--- NOTE | 2020-02-04 13:03 | PDOC.HOSPP ---
- Subjective Encounter Date: 02/04/20 Encounter Time: 12:00 Subjective: no pain in her foot feels good for the first time this morning - Objective Vital Signs & Weight: Vital Signs (12 hours) Temp Pulse Resp BP Pulse Ox 02/04/20 08:00 98 F 81 16 112/82 99 Weight Admit Weight 207 lb 1.6 oz Weight 207 lb 1.6 oz I&O: 02/03/20 02/04/20 02/05/20 06:59 06:59 06:59 Intake Total 1270 Balance 1270 Result Diagrams: 02/02/20 05:51 02/02/20 05:50 Additional Labs: Accuchecks 02/04/20 02/04/20 02/03/20 11:07 06:39 20:07 POC Glucose 225 H 135 H 198 H 02/03/20 02/03/20 16:38 13:03 POC Glucose 255 H 198 H Hospitalist ROS - Medication Medications: Active Medications Generic Name Dose Route Start Last Admin Trade Name Freq PRN Reason Stop Dose Admin Hydrocodone Bitart/Acetaminophen 1 tab 01/30/20 16:47 02/03/20 05:00 [place] 5/325 PO 1 tab Q4H PRN Administration Moderate Pain (4-6) Benzonatate 200 mg 02/04/20 11:45 02/04/20 12:07 Tessalon PO 02/04/20 13:45 200 mg NOW BOGDAN Administration Enoxaparin Sodium 40 mg 01/31/20 09:00 02/04/20 09:06 Lovenox SC 40 mg 0900 BOGDAN Administration Gabapentin 600 mg 01/30/20 21:00 02/04/20 09:06 Neurontin PO 600 mg BID BOGDAN Administration Piperacillin Sod/Tazobactam 100 mls @ 200 mls/hr 01/30/20 17:00 02/04/20 09: 13 Sod 3.375 gm/ Sodium Chloride IVPB 100 mls 0100,0900,1700 BOGDAN Administration Vancomycin HCl 1 gm/ Device 200 mls @ 200 mls/hr 02/01/20 14:00 02/03/20 14: 04 IVPB 200 mls 1400 BOGDAN Administration Insulin Human Isoph/Insulin Regular 30 units 01/30/20 21:00 02/03/20 20:48 Humulin 70/30 SC 30 unit QPM BOGDAN Administration Insulin Human Isoph/Insulin Regular 60 units 01/31/20 09:00 02/04/20 09:08 Humulin 70/30 SC 60 unit QAM BOGDAN Administration Insulin Human Lispro 0 units 01/30/20 16:47 02/04/20 12:08 Humalog SC 6 unit .AGGRESSIVE SLIDING PRN Administration Aggressive Correctional Scale Morphine Sulfate 2 mg 01/30/20 16:49 02/04/20 12:13 Morphine SLOW IVP 2 mg Q4H PRN Administration Severe Pain (7-10) Ondansetron HCl 4 mg 01/30/20 16:47 02/02/20 09:19 Zofran IVP 4 mg Q6H PRN Administration Nausea/Vomiting Sodium Chloride 10 ml 02/03/20 21:00 02/04/20 09:08 Flush - Normal Saline IVF 10 ml Q12HR BOGADN Administration Sodium Chloride 10 ml 02/03/20 13:42 02/03/20 17:03 Flush - Normal Saline IVF 10 ml PRN PRN Administration Saline Flush Tramadol HCl 100 mg 02/03/20 13:41 02/03/20 15:36 Ultram PO 100 mg Q6H PRN Administration Moderate Pain (4-6) - Exam General Appearance: awake alert Eye: PERRL, anicteric sclera ENT: no oropharyngeal lesions, moist mucosa Neck: supple, no JVD Heart: RRR, no murmur Respiratory: no wheezes, no rales Gastrointestinal: soft, non-tender, non-distended, normal bowel sounds Extremities: no cyanosis, no edema Extremities - other findings: b/l foot in wound vac Neurological: cranial nerve grossly intact, no focal deficits Psychiatric: normal affect, A&O x 3 Hosp A/P (1) Cellulitis of right leg Code(s): L03.115 - CELLULITIS OF RIGHT LOWER LIMB Status: Acute (2) Sepsis Code(s): A41.9 - SEPSIS, UNSPECIFIED ORGANISM Status: Acute Qualifiers: Sepsis type: sepsis due to unspecified organism Sepsis acute organ dysfunction status: without acute organ dysfunction Qualified Code(s): A41.9 - Sepsis, unspecified organism (3) Anemia, normocytic normochromic Code(s): D64.9 - ANEMIA, UNSPECIFIED Status: Chronic (4) DM2 (diabetes mellitus, type 2) Status: Chronic Qualifiers: 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 Diabetes mellitus complication detail: with polyneuropathy (5) Diabetic neuropathy Code(s): E11.40 - TYPE 2 DIABETES MELLITUS WITH DIABETIC NEUROPATHY, UNSP Status: Chronic Qualifiers: Diabetes mellitus type: type 2 (6) HTN (hypertension) Code(s): I10 - ESSENTIAL (PRIMARY) HYPERTENSION Status: Chronic Qualifiers: - Plan hemostable is on vanc and zosyn s/p debridement of left plantar ulcer and amp of right 2nd toe with MT 02/03/2020 elevated wbc is starting to trend down continue home dose insulin with coverage to amb as tolerated needs wound vac for outpt use wound cs are growing staph, await full culture results?
[2020-02-04 14:02] LABS: Vancomycin, Trough 9.2 ug/mL
[2020-02-04] MEDS: Vancomycin 1 GM in Premix Bag 1 BAG IVPB SCH (14:13)
[2020-02-04] MEDS: traMADol HCl 50 MG TAB PO PRN (15:14)
[2020-02-04] MEDS: Vancomycin 1.5 GRAM/300 ML BAG 1.5 GM in Premix Bag 1 BAG IVPB SCH (15:15)
[2020-02-04] MEDS ORDERED: Prevnar 13-Val Conj/PF 0.5 ML SYRINGE IM ONE (17:30)
[2020-02-04] MEDS: HYDROcodone/Acetaminophen 5/325 mg Tablet PO PRN (20:25)
[2020-02-05] MEDS: Piperacillin/Tazobactam 3.375 GM in Sodium Chloride 0.9% 100 ML IVPB SCH ×3 (00:40→17:17)
[2020-02-05 07:09] VITALS: BP 134/74; TEMP 98.1
[2020-02-05] MEDS: Gabapentin 300 MG CAP PO SCH (09:21)
[2020-02-05] MEDS: Enoxaparin Sodium 40 MG/0.4 ML SYRINGE SC SCH (09:22)
[2020-02-05] MEDS: HumuLIN 70/30 (300 UNITS/3 ML VIAL) SC SCH (09:22)
[2020-02-05] MEDS: Morphine 2 MG/ML VIAL SLOW IVP PRN ×2 (09:40→15:44)
[2020-02-05] MEDS: HumaLOG 300 UNITS/3 ML VIAL SC PRN (12:35)
[2020-02-05] MEDS: Vancomycin 1.5 GRAM/300 ML BAG 1.5 GM in Premix Bag 1 BAG IVPB SCH (15:45)
--- NOTE | 2020-02-05 16:19 | CON ---
DATE OF CONSULTATION: 02/05/2020 SUBJECTIVE: Ms. Olson has been readmitted with another inflammatory process at this time in the right lower extremity, which started as what was felt to be a cellulitis, but it turned into a more aggressive process and she ended up with amputation. The procedure was carried out on the , consisted of a 3rd metatarsal amputation. The pathology showed chronic focal and acute osteomyelitis, adjacent soft tissue with vessel thrombosis, bone with marrow necrosis. The patient has been multiple times, I think 4 or 5 times, in the past few months, the previous one was in July when she had a surgical procedure, which consisted of amputation of the left great toe metatarsal and nothing much happening on the right foot, but she keeps having problems with offloading and keeping proper footwear. Right now, she is having minimal pain. No respiratory symptoms or abdominal pain. No diarrhea. No genitourinary symptoms. PAST MEDICAL HISTORY: 1. Type 2 diabetes. 2. Neuropathy. 3. Prior amputations of right and left feet 2nd and 3rd rays and 1st ray on the left side. 4. Left kidney abscess with MSSA bacteremia in the past, which resolved. 5. Abscess in the right heel, but no bone involvement. SOCIAL HISTORY: Never smoker. Lives in [place]. . ALLERGIES: IODINE. FAMILY HISTORY: Type 2 diabetes. CURRENT MEDICATIONS: 1. Dulcolax. 2. Dextrose. 3. Lovenox. 4. Neurontin. 5. Glucagon. 6. [place]. 7. Insulin. 8. Vancomycin. PHYSICAL EXAMINATION: VITAL SIGNS: Essentially normal. She did have a temperature elevation of 100.8 earlier in the week. O2 saturations are good at 98%. SKIN: The wound photo with the area of the 3rd metatarsal amputation, left for healing by secondary intention with a negative pressure dressing. She has a negative pressure dressing on the right side as well. Of note, she had also debridement, but not any further amputation on the left side. No lymphadenopathy. HEENT: Noncontributory. LUNGS: Clear. HEART: S1 and S2. Regular rate. ABDOMEN: Soft, not distended or tender. She has quite prominent panniculus. No bladder distention. EXTREMITIES: No joint inflammatory activity. Pulses 1+ in dorsalis pedis, posterior tibialis, and popliteals. LABORATORY DATA: White cell count is at 19.5, hemoglobin 11, and platelets 296. Creatinine 1.09. Liver profile normal with alkaline phosphatase 122, probably bone origin. Albumin 3.2. Microbiology with MRSA from the toe. The organism is susceptible to tetracycline and rifampin, resistant to quinolones. ASSESSMENT: 1. Type 2 diabetes. 2. Neuropathy with multiple recurrent complications in the right and left feet, which have resulted in amputations of multiple rays on both sides. At this time, she has the right side affected. It seems to me that the problem is related to poor footwear and she is at high risk for higher levels of amputation down the road, even though her vascular status seems to be adequate. We will go and switch her to oral doxycycline and rifampin and treat her for 6 weeks and monitor closely in the outpatient setting. Job ID: [id number]
--- NOTE | 2020-02-06 14:04 | DIS ---
DATE OF ADMISSION: 01/30/2020 DATE OF DISCHARGE: 02/05/2020 DISCHARGE DISPOSITION: To home. PRIMARY DISCHARGE DIAGNOSES: 1. Cellulitis of right leg with gangrene of right second toe, status post amputation with metatarsal on 02/03/2020. 2. Chronic left plantar ulcer, status post debridement. 3. Sepsis. 4. Chronic anemia. 5. Diabetes mellitus, type 2. 6. Hypertension. 7. Diabetic neuropathy. PROCEDURES DONE DURING HOSPITALIZATION: Foot x-ray on 01/30/2020 on the right side, three views done, showed no acute findings. Chest x-ray showed no active intrathoracic disease. Left foot 3-view x-ray done, shows soft tissue swelling with ulceration. No radiographic evidence of osteomyelitis. The patient had debridement of the left plantar ulcer on 02/03/2020 along with amputation of right second toe with metatarsal done by Dr. Vega. Wound cultures grew MRSA. She had a white count of 24 on the day of admission, H and H 13 and 43 and platelet count 166. Discharge BUN and creatinine were 11 and 0.9. Liver enzymes on the day of admission including AST and ALT were within normal limits, alkaline phosphatase was 122, total bilirubin 0.6. COVID-19 PCR on 01/30/2020 was negative. DISCHARGE MEDICATIONS: 1. Vibramycin 100 mg p.o. twice daily for 6 weeks. 2. Rifampin 300 mg p.o. twice daily for 6 weeks. 3. Humulin 70/30, 30 units q.p.m. and 60 units q.a.m. 4. Gabapentin 900 mg p.o. 3 times daily. ALLERGIES: TO CEFTRIAXONE. DISCHARGE PLAN: The patient to follow up with her primary care physician, Dr. Ha Angel in 1 week. She needs to follow up with Dr. Phillips in 2 weeks, Dr. Vega in 3 to 4 weeks. She will follow up with Wound Care on 02/08/2020 at 10: 15 a.m. Brief course with during hospitalization: the patient initially got admitted on the 29 of January with complaints of right foot pain and was admitted for right leg cellulitis with white count of 24 and sepsis. The patient also had chronic ulcer on the plantar aspect of the foot. She has had prior multiple amputations of her toes due to diabetic ulcers with neuropathy. She was placed on broad- spectrum antibiotics. Despite these measures, the patient's right second toe started to discolor and developed wet gangrene. She was evaluated by Dr. Vega. The patient was taken to operating room for amputation of the right second toe with metatarsal and debridement of the left plantar ulcer. Post these procedures, the patient's wound was placed in wound VAC. She was transitioned to doxycycline and rifampin for a total duration of [address] Phillips' advice. Her wound culture grew MRSA. She has remained hemodynamically stable, ambulating in the room with a wound VAC. Case Management consultation was requested for help with discharge planning including wound VAC arrangement. She has been set up with outpatient Wound Care at [place] and needs to follow up on the 07 of February at 10:15 a.m. She has been cleared for discharge by Dr. Vega and Dr. Phillips. She needs to follow up with them as mentioned above. Please see a [id number] documentation for the day of discharge on [facility]. Job ID: [id number] MTDD
== END 2020-02-05 18:43 | disposition home or self-care (01) | DRG 854 ==
LOC: ERS 11:45 → T4-B 15:21
PROVIDERS: ADMIT Internal Medicine; ATTEND Internal Medicine
PROC: 0Y6M0ZB Detachment at Right Foot, Partial 2nd Ray, Open Approach (ICD-10-PCS; principal; 2020-02-03)
PROC: 0QBP0ZZ Excision of Left Metatarsal, Open Approach (ICD-10-PCS; 2020-02-03)
PROC: 3E02340 Introduction of Influenza Vaccine into Muscle, Percutaneous Approach (ICD-10-PCS; 2020-02-04)
DX: A41.9 Sepsis, unspecified organism (principal); L03.115 Cellulitis of right lower limb; L97.429 Non-pressure chronic ulcer of left heel and midfoot with unspecified severity; E11.52 Type 2 diabetes mellitus with diabetic peripheral angiopathy with gangrene; I96 Gangrene, not elsewhere classified; N17.9 Acute kidney failure, unspecified; M86.172 Other acute osteomyelitis, left ankle and foot; Z23 Encounter for immunization; E11.621 Type 2 diabetes mellitus with foot ulcer; L97.519 Non-pressure chronic ulcer of other part of right foot with unspecified severity; E11.40 Type 2 diabetes mellitus with diabetic neuropathy, unspecified; F32.9 Major depressive disorder, single episode, unspecified; F17.210 Nicotine dependence, cigarettes, uncomplicated; Z20.828 Contact with and (suspected) exposure to other viral communicable diseases; E11.628 Type 2 diabetes mellitus with other skin complications; E78.5 Hyperlipidemia, unspecified; D63.1 Anemia in chronic kidney disease; N18.9 Chronic kidney disease, unspecified; E11.22 Type 2 diabetes mellitus with diabetic chronic kidney disease; E11.649 Type 2 diabetes mellitus with hypoglycemia without coma; E87.6 Hypokalemia; B95.62 Methicillin resistant Staphylococcus aureus infection as the cause of diseases classified elsewhere; Z88.1 Allergy status to other antibiotic agents; Z79.899 Other long term (current) drug therapy; Z79.4 Long term (current) use of insulin; Z89.412 Acquired absence of left great toe
CPT/HCPCS: 36415; 36416; 36600; 71045; 80048; 80053; 80202; 83605; 85025; 87040; 87070; 87077; 87186; 87205; 87635; 88305; 88311; 90471; 90670; 96361; 96365; 96367; 96375; G0009; J0692; J1200; J1650; J1815; J1885; J2270; J2405; J2543; J2704; J3010; J3370; J3490; J7030; U0003

== ENCOUNTER 2020-04-04 21:09 | Inpatient (IN) | payer OTHER, SELFPAY ==
--- NOTE | 2020-04-04 21:58 | RAD ---
RIGHT FOOT THREE VIEWS: History: Right foot ulcer, right foot pain. FINDINGS: Comparison is made with exam of 02-20-2020. Interval post op changes with amputation of the third digit at the neck of the second metatarsal. Pos t-operative changes of the second digit at the level of the neck of the second metatarsal is again se en. There is mild callus formation/periosteal reaction along the distal aspects of the shafts of the second and third metatarsals. It cannot be said with certainty if this is due to infection or postope rative change. The remainder of the foot is otherwise unremarkable. A small plantar calcaneal spur is again seen. IMPRESSION: As above. POS: OFF
[2020-04-04 22:04] LABS: #Basophils 0.1 thou/uL (0.0-0.2); #Eosinphils 0.3 thou/uL (0.0-0.7); #Lymphocytes 2.8 thou/uL (1.20-3.40); #Monocytes 0.7 thou/uL (0.11-0.59); #Neutrophils 9.6 thou/uL (1.40-6.50); %Basophils 0.6 % (0.0-1.0); %Eosinophils 1.9 % (0.0-10.0); %Lymphocytes 20.6 % (21.0-51.0); %Monocytes 5.2 % (0.0-10.0); %Neutrophils 71.8 % (42.0-75.0); Mean Corpuscular HGB CONC 34.2 g/dL (32.0-36.0); Mean Corpuscular Hemoglobin 28.6 pg (27.0-31.0); Mean Corpuscular Volume 83.6 fL (78.0-98.0); Platelet Count 256 thou/uL (130-400); RBC Distribution Width 14.2 % (11.5-14.5); Red Blood Cell (RBC) Count 4.53 mill/uL (4.20-5.40); White Blood Cell (WBC) Count 13.4 thou/uL (4.8-10.8)
[2020-04-04 22:23] LABS: ALT (SGPT) 18 U/L (8-55); AST (SGOT) 12 U/L (5-34); Albumin 3.5 g/dL (3.5-5.0); Alkaline Phosphatase 135 U/L (40-110); Anion Gap 13 mmol/L (10-20); BUN (Urea Nitrogen) 27 mg/dL (7.0-18.7); Bilirubin, Total 0.5 mg/dL (0.2-1.2); Calc. Creatinine Clearance 0 mL/min (70-130); Calcium 8.8 mg/dL (7.8-10.44); Carbon Dioxide 22 mmol/L (22-29); Chloride 101 mmol/L (98-107); Estimated GFR-MDRD 48; Globulin 4.5 g/dL (2.4-3.5); Glucose 334 mg/dL (70-105); Potassium 4.2 mmol/L (3.5-5.1); Sodium 132 mmol/L (136-145)
[2020-04-04] MEDS ORDERED: DAPTOmycin 500 MG in Sodium Chloride 0.9% 100 ML IVPB SCH (23:00)
[2020-04-04] MEDS ORDERED: Morphine 4 MG/ML VIAL ONE (23:23)
[2020-04-05] MEDS ORDERED: Morphine 2 MG/ML VIAL SLOW IVP SCH (02:15)
[2020-04-05] MEDS ORDERED: Labetalol HCl 100 MG/20 ML VIAL SLOW IVP PRN (02:27)
[2020-04-05] MEDS ORDERED: Ondansetron ODT 4 MG TAB PO PRN (02:27)
[2020-04-05] MEDS ORDERED: Ondansetron PF 4 MG/2 ML Vial IVP PRN (02:27)
[2020-04-05] MEDS ORDERED: Dextrose 5% in Water 1,000 ML IV PRN (02:27)
[2020-04-05] MEDS ORDERED: Dextrose 50% Abboject 50 ML SYRINGE SLOW IVP PRN (02:27)
[2020-04-05] MEDS ORDERED: Sodium Chloride 0.9% 1,000 ML IV SCH (02:30)
[2020-04-05 02:39] VITALS: BMI 39.1
[2020-04-05] MEDS: HYDROcodone/Acetaminophen 5/325 mg Tablet PO PRN ×3 (02:59→16:00)
--- NOTE | 2020-04-05 03:21 | HP ---
PRIMARY CARE PROVIDER: Mildred TONY. CHIEF COMPLAINT: Bilateral feet pain. HISTORY OF PRESENT ILLNESS: This is a 49-year-old female, who presents to [facility] Emergency Department complaining of bilateral foot pain and drainage with some radiation into the lower extremities in the context of diabetic foot ulcerations, status post amputation of toes in February of 2020. The patient has been receiving daptomycin intravenously over the last six weeks and will complete the course of antibiotics on 04/06/2020. The patient has received [facility] care services [facility]. The patient noted increased drainage from bilateral feet with some malodorous discharge. The patient denied any documented fever, but states she had some chills when presenting to the emergency room. The patient was recently discharged on 03/01/2020 with a PICC line in place, receiving the daptomycin. In the emergency room, the patient underwent general evaluation including plain radiographic imaging of the feet showing evidence of osteomyelitis. The patient received a dose of Cubicin in addition to morphine sulfate and intravenous normal saline x2 L. PAST MEDICAL HISTORY: 1. Diabetic foot ulceration with osteomyelitis, status post amputation with current IV antibiotic therapy with daptomycin. 2. Diabetic peripheral neuropathy. 3. Diabetes mellitus type 2, insulin requiring. PAST SURGICAL HISTORY: 1. Status post amputation of the 3rd toe of the right foot and toes 1 through 3 on the left foot. 2. Status post cyst removal from the back. CURRENT MEDICATIONS: 1. Daptomycin. 2. Humulin 70/30, 60 units subcutaneously q.a.m. and 30 units subcutaneously at bedtime. 3. Gabapentin 900 mg p.o. t.i.d. ALLERGIES: TO ROCEPHIN. FAMILY HISTORY: Positive for diabetes and hypertension. SOCIAL HISTORY: Resides in [place], [place]. Disabled. Smokes occasionally, quantity unknown. No alcohol or illicit drug use. REVIEW OF SYSTEMS: CONSTITUTIONAL: Negative for weight loss or gain, ability to conduct usual activities. SKIN: Negative for rash, itching. EYES: Negative for double vision, pain. ENT/MOUTH: Negative for nose bleeding, neck stiffness, pain, tenderness. CARDIOVASCULAR: Negative for palpitations, dyspnea on exertion, orthopnea. RESPIRATORY: Negative for shortness of breath, wheezing, cough, hemoptysis, fever or night sweats. GASTROINTESTINAL: Negative for poor appetite, abdominal pain, heartburn, nausea, vomiting, constipation, or diarrhea. GENITOURINARY: Negative for urgency, frequency, dysuria, nocturia. MUSCULOSKELETAL: Negative for pain, swelling. NEUROLOGIC/PSYCHIATRIC: Negative for anxiety, depression. ALLERGY/IMMUNOLOGIC: Negative for skin rash, bleeding tendency. Otherwise negative except as stated per HPI. PHYSICAL EXAMINATION: VITAL SIGNS: On admission, blood pressure 150/59, pulse 107, respiratory rate 22, temperature 98.3 degrees Fahrenheit, O2 saturation 100% on room air. GENERAL APPEARANCE: This is a 49-year-old female, alert and oriented x3, pleasant, conversant, in no acute distress. HEENT: Pupils are equal, round, reactive to light and accommodation. Extraocular muscles are intact. No scleral icterus. No conjunctival injection. Nares patent. OP is clear. NECK: Supple. No cervical adenopathy. No thyromegaly. No carotid bruits. No JVD appreciated. Cervical spine with full active and passive range of motion. No meningeal signs noted. CHEST: Lungs are clear to auscultation bilaterally. CARDIOVASCULAR: S1, S2 without noted murmur, rub, or gallop. ABDOMEN: Obese, soft, nontender, nondistended. Bowel sounds are positive in all 4 quadrants. No palpable mass. No rebound or guarding appreciated. EXTREMITIES: Warm and dry with fair turgor. Postsurgical changes noted of bilateral feet with open ulceration and purulent discharge of bilateral feet. Left foot with increased edema and erythema at the mid foot with expressible discharge through open tract at the distal aspect of the amputation site. Pulses diminished at the dorsalis pedis and posterior tibial arteries. NEUROLOGIC: Cranial nerves 2 through 12 are grossly intact. No focal or lateralizing signs appreciated. PERTINENT LABORATORY AND X-RAY FINDINGS: Sodium 132, potassium 4.2, chloride 101, CO2 of 22, BUN 27, creatinine 1.21, estimated GFR 48, glucose 334, lactic acid level 1.4, calcium 8.8, alkaline phosphatase 135. CRP 8.67. CBC showed a white blood cell count of 13.4, hemoglobin 13, hematocrit 38, platelet count 256 with 72% neutrophils. ESR 95. Three views of the right foot dated on 04/04/2020, showed postoperative changes with amputation of 3rd digit at the neck of the 2nd metatarsal. Questionable infectious process versus postoperative changes. Left foot shows postsurgical changes of the 1st, 2nd, and 3rd digits. ASSESSMENT/PLAN: 1. Diabetic foot ulceration. The patient will be admitted to the medical floor. We will continue IV vancomycin 1 g q.12 hours with additional cefepime 2 g IV q.12 hours. Consult Wound Care Service for evaluation. Consult General Surgery Service for potential surgical intervention and debridement. Pain control with morphine sulfate 4 mg IV q.4 hours p.r.n. 2. Acute kidney injury on chronic kidney disease stage 3. Continue intravenous normal saline and avoid nephrotoxic agents and limit contrast exposure. Repeat creatinine in the a.m. 3. Diabetes mellitus type 2 with peripheral neuropathy and nephropathy. Insulin sliding scale for reflexive coverage. ADA diet when tolerating p.o. intake. Serial Accu-Cheks before meals and at bedtime. 4. Prophylaxis. Hold SCDs due to lower extremity amputation. Lovenox 40 mg subcutaneously daily. Wound Care consult pending. CODE STATUS: Full. Surrogate medical decision maker is the patient's spouse. Job ID: [id number]
[2020-04-05] MEDS: Cefepime 2 GM in Sodium Chloride 0.9% 100 ML IVPB SCH ×2 (05:33→19:13)
[2020-04-05 05:59] LABS: #Eosinphils 0.3 thou/uL (0.0-0.7); #Lymphocytes 3.5 thou/uL (1.20-3.40); #Monocytes 0.7 thou/uL (0.11-0.59); #Neutrophils 7.7 thou/uL (1.40-6.50); %Basophils 0.3 % (0.0-1.0); %Eosinophils 2.2 % (0.0-10.0); %Lymphocytes 28.3 % (21.0-51.0); %Neutrophils 63.1 % (42.0-75.0); Hemoglobin 10.4 g/dL (12.0-16.0); Mean Corpuscular HGB CONC 31.9 g/dL (32.0-36.0); Mean Corpuscular Hemoglobin 27.1 pg (27.0-31.0); Mean Corpuscular Volume 85.1 fL (78.0-98.0); Mean Platelet Volume 8.8 fL (7.4-10.4); Platelet Count 215 thou/uL (130-400); RBC Distribution Width 14.1 % (11.5-14.5); Red Blood Cell (RBC) Count 3.85 mill/uL (4.20-5.40); White Blood Cell (WBC) Count 12.2 thou/uL (4.8-10.8)
[2020-04-05 06:22] LABS: Anion Gap 9 mmol/L (10-20); BUN (Urea Nitrogen) 23 mg/dL (7.0-18.7); Calc. Creatinine Clearance 123 mL/min (70-130); Calcium 7.8 mg/dL (7.8-10.44); Carbon Dioxide 22 mmol/L (22-29); Chloride 107 mmol/L (98-107); Estimated GFR-MDRD 73; Glucose 239 mg/dL (70-105); Potassium 4.2 mmol/L (3.5-5.1); Sodium 134 mmol/L (136-145)
--- NOTE | 2020-04-05 07:45 | RAD ---
LEFT FOOT 3 VIEWS: HISTORY: Diabetic foot ulcer, left foot pain. COMPARISON: 02/28/2020. FINDINGS/IMPRESSION: Postop changes of amputation of the 1st, 2nd, and 3rd digits at the level of the metatarsal shafts ar e again seen. There is periosteal reaction along the distal aspect of the remainder of the 3rd metat arsal which could be due to infection or reactive change to surgery. There is dislocation/subluxatio n at the 4th MTP joint. POS: OFF
[2020-04-05] MEDS: Famotidine 20 MG TAB PO SCH ×2 (08:24→20:56)
[2020-04-05] MEDS: Enoxaparin Sodium 40 MG/0.4 ML SYRINGE SC SCH (08:25)
[2020-04-05] MEDS: Gabapentin 300 MG CAP PO SCH ×3 (08:25→20:56)
[2020-04-05] MEDS ORDERED: Vancomycin HCl 1 GM in Sodium Chloride 0.9% 250 ML 250 ML IVPB SCH (09:00)
[2020-04-05] MEDS ORDERED: Ibuprofen 600 MG TAB PO PRN (09:30)
[2020-04-05] MEDS ORDERED: Acetaminophen 500 MG TAB PO PRN (09:30)
[2020-04-05] MEDS ORDERED: traMADol HCl 50 MG TAB PO PRN ×2 (09:30)
[2020-04-05] MEDS: Morphine 4 MG/ML VIAL SLOW IVP PRN ×3 (09:58→19:32)
--- NOTE | 2020-04-05 10:40 | PDOC.HOSPP ---
- Subjective Encounter Date: 04/05/20 Encounter Time: 10:38 Subjective: Ms. Olson was seen today in follow-up of diabetic foot infection. She is disappointed about the infection,and that she will need further surgery. She denies chest pain or shortness of breath. - Objective Vital Signs & Weight: Vital Signs (12 hours) Temp Pulse Resp BP BP Pulse Ox 04/05/20 07:00 98.2 F 74 16 102/68 98 04/05/20 00:39 98.9 F 108 H 18 134/70 97 04/05/20 00:30 97 Weight Weight 207 lb 3.752 oz I&O: 04/04/20 04/05/20 04/06/20 06:59 06:59 06:59 Intake Total 325 Balance 325 Result Diagrams: 04/05/20 05:31 04/05/20 05:31 Additional Labs: Accuchecks 04/05/20 04:52 POC Glucose 220 H Hospitalist ROS - Medication Medications: Active Medications Generic Name Dose Route Start Last Admin Trade Name Freq PRN Reason Stop Dose Admin Hydrocodone Bitart/Acetaminophen 1 tab 04/05/20 02:27 04/05/20 08:24 Hydrocodone/Acetaminophen 5/325 Mg Tablet PO 1 tab Q4H PRN Administration Moderate Pain (4-6) Enoxaparin Sodium 40 mg 04/05/20 09:00 04/05/20 08:25 Enoxaparin Sodium 40 Mg/0.4 Ml Syringe SC 40 mg 0900 BOGDAN Administration Famotidine 20 mg 04/05/20 09:00 04/05/20 08:24 Famotidine 20 Mg Tab PO 20 mg BID BOGDAN Administration Gabapentin 900 mg 04/05/20 09:00 04/05/20 08:25 Gabapentin 300 Mg Cap PO 900 mg TID BOGDAN Administration Cefepime HCl 2 gm/ Sodium 100 mls @ 200 mls/hr 04/05/20 06:00 04/05/20 05:33 Chloride IVPB 100 mls 0600,1800 BOGDAN Administration Morphine Sulfate 4 mg 04/05/20 02:27 04/05/20 09:58 Morphine 4 Mg/Ml Vial SLOW IVP 4 mg Q4H PRN Administration Moderate to Severe Pain (6-10) - Exam Eye: PERRL, anicteric sclera Heart: RRR, no murmur, no gallops, no rubs, normal peripheral pulses Respiratory: CTAB, no wheezes, no rales, no ronchi, normal chest expansion, no tachypnea Gastrointestinal: soft, non-tender, non-distended, normal bowel sounds Extremities: no cyanosis (+ bilateral foot deformities. open area on both feet. The left has purrent drainage able to palpate a p.t. on both feet, and a very faint thready d.p. bilaterally. good capillary refill), 1+ LE edema Hosp A/P (1) Diabetic foot infection Code(s): E11.628 - TYPE 2 DIABETES MELLITUS WITH OTHER SKIN COMPLICATIONS; L08.9 - LOCAL INFECTION OF THE SKIN AND SUBCUTANEOUS TISSUE, UNSP Status: Acute (2) CKD (chronic kidney disease) stage 3, GFR 30-59 ml/min Code(s): N18.3 - CHRONIC KIDNEY DISEASE, STAGE 3 (MODERATE) Status: Chronic (3) DM2 (diabetes mellitus, type 2) Status: Chronic Qualifiers: Diabetes mellitus residential insulin use: with residential use Diabetes mellitus complication detail: with polyneuropathy (4) Diabetic neuropathy Code(s): E11.40 - TYPE 2 DIABETES MELLITUS WITH DIABETIC NEUROPATHY, UNSP Status: Chronic Qualifiers: Diabetes mellitus type: type 2 (5) HTN (hypertension) Code(s): I10 - ESSENTIAL (PRIMARY) HYPERTENSION Status: Chronic Qualifiers: - Plan * Diabetic foot infection- She has failed outpatient management,and developed worsening infection despite IV Daptomycin and wound care * She has been evaluated by General Surgery- the plan is for amputation of the toes on the left foot. * ID has been consulted to aid in antibiotic choice * DM- blood glucose is poorly controlled- will add a low dose Lantus * HTN- blood pressure is stable
[2020-04-05 15:06] LABS: SARS-CoV-2 MS2 Positive; SARS-CoV-2 N Gene Negative; SARS-CoV-2 S Gene Negative; SARS-CoV-2 by NAA Not Detected (NotDetected); SARS-CoV-2 orf1ab Negative
--- NOTE | 2020-04-05 15:44 | CON ---
DATE OF CONSULTATION: HISTORY OF PRESENT ILLNESS: Jeanne Olson is well known to me. She is a diabetic with frequent foot problems. The patient has had prior amputations of right foot second and third toes and metatarsals healing secondarily. Wound VAC was overlying right foot wound and Wound Care [facility] outpatient states that they could only use the VAC for 30 days and it was discontinued. The patient has had previous amputations of left toes one, two and three and metatarsals. Her left 4th toe has a neuropathic plantar ulcer into the metatarsophalangeal joint. She is admitted by the Hospitalist Service, placed on intravenous antibiotics. X-rays of her right foot reveals changes of previous foot surgery as indicated, but no definite osteomyelitis. X-rays of her left foot revealed postop changes of amputations of toes one, two, three, and metatarsal with aspect of the remainder of the 3rd metatarsal due to reactive change . There is dislocation, subluxation of the 4th MTP joint. Clinical exam reveals this neuropathic ulcer extends into the 4th MTP joint. Plan is to amputate the left 4th toe and metatarsal. The 5th toe looks normal and she desires to keep this. She has good pedal pulses. No evidence of PAD. HOME MEDICATIONS: 1. Insulin. 2. Gabapentin. SOCIAL HISTORY: Tobacco, none. Alcohol, none. MEDICATIONS: As noted. PAST SURGICAL HISTORY: She had x3, shoulder surgery in addition to multiple foot surgeries as described. PAST MEDICAL HISTORY: Diabetes mellitus, obesity, neuropathy, neuropathic ulcer, previous toe amputations. REVIEW OF SYSTEMS: Noncontributory. FAMILY HISTORY: Noncontributory. PHYSICAL EXAMINATION: VITAL SIGNS: Height 5 feet 1, weight 207 pounds, and 39 BMI. HEAD, EARS, EYES, NOSE, AND THROAT: Unremarkable. LUNGS: Clear to auscultation. CARDIAC: Regular rate and rhythm without murmur or gallop. ABDOMEN: Soft, nontender. EXTREMITIES: Palpable femoral popliteal pedal pulses. Changes in her toes as outlined above. Previous amputations right foot second and third toes with wound healing secondary and good granulation tissue healing without evident problems. No evidence of infection. Left foot reveals previous amputations of toes one, two, and three and metatarsals with wounds healed. She has a neuropathic ulcer beneath the metatarsophalangeal joint of 4th toe. She has hair on her feet. LABORATORY DATA: White count 12 and hemoglobin 10. Basic metabolic profile is normal. Accu-Cheks 220. ASSESSMENT AND PLAN: Osteomyelitis, neuropathic ulcer with diabetic foot infection of the left. Recommend amputation of left 4th toe and metatarsal and may need debride to 3rd metatarsal based on plain radiographic findings. We will plan that tomorrow after COVID returns. They will be back later tonight. Job ID: [id number]
[2020-04-05] MEDS: HumaLOG 300 UNITS/3 ML VIAL SC PRN ×2 (16:04→20:57)
--- NOTE | 2020-04-05 18:02 | PRG ---
DATE OF SERVICE: 04/05/2020 Jeanne Olson is doing well today. We are awaiting her COVID test results. We are assuming her COVID test is negative. We are awaiting resolution of her Eliquis. Plan tomorrow amputation of her left 4th toe and metatarsal due to a diabetic infection. She understands the risks and benefits. She will need a wound VAC. She will need outpatient wound VAC care. Wound care has been ordered. fitness worker has been contacted to arrange outpatient wound care. The patient can be probably discharged home on oral antibiotics postoperatively. I have talked to the patient about amputation of her remaining small toe, but she does not want to do that now. Job ID: [id number]
--- NOTE | 2020-04-05 18:55 | CON ---
DATE OF CONSULTATION: 04/05/2020 REASON FOR CONSULTATION: Recrudescence of inflammatory process, left foot. HISTORY OF PRESENT ILLNESS: A 49-year-old, whom I have seen multiple times for the past few month, history of type 2 diabetes, alternating complications in right and left feet associated with neuropathy and various amputations. The list of her procedures was reviewed. In February 2019, she came in with a puncture wound left foot plantar aspect with cellulitis. She had I and D and drainage and cultures, eventually she underwent amputation of left second and third toes and metatarsals during the same admission. A foot swab culture revealed E coli with a broad susceptibility profile. On March 23, 2019, there was another culture report with MRSA and group B Streptococcus, this was ordered by the hospitalist. On May 2019, the patient had an abscess in right foot. Dr. Edward did I and D of the abscess. Cultures yielded MRSA, Enterococcus faecalis, E coli and Morganella. Morganella was susceptible to most antimicrobials. The E coli had a broad susceptibility profile. The E faecalis with usual profile and MRSA with the usual profile. In July 2019, she had amputation of the left great toe metatarsal wound, left open to heal by secondary intention with wound VAC. Cultures yielded methicillin sensitive Staph aureus, group B Strep, mold species, and Chanel albicans. On February 02, another amputation which included this time left foot with exposed left 3rd metatarsal from the neuropathic plantar ulcer, so she underwent sharp resection of neuropathic ulcer, resection of 3rd metatarsal, wound left open by healing by secondary intention. Culture from January revealed an MRSA, but no other organism, that was a toe swab, and finally the last procedure was from February 21 and it consisted of this time a right foot 3rd toe metatarsal amputation with wound left open to heal by secondary intention. In this last episode, no cultures were submitted. So, the patient was discharged on IV daptomycin PICC line. The right foot is doing well, she is getting close to the end of therapy, but now the left foot has developed recrudescence of inflammatory process and she comes in with pain, drainage, and there is obvious tracking of the previous surgical wound all the way to the residual metatarsal, and looks like the 4th toe metatarsal was involved this time. She is going for amputation of the 4th and probably the 5th toe rays tomorrow. She does not have any headaches. No respiratory symptoms, abdominal pain, or diarrhea. No genitourinary symptoms. PAST MEDICAL HISTORY: Type 2 diabetes with neuropathy, multiple amputations in right and left feet in an alternating fashion over the past many months. She has had a left kidney abscess in the past with MSSA bacteremia. She has had IV therapy in the outpatient setting with a PICC line. ALLERGIES: SHE IS ALLERGIC TO IODINE. SOCIAL HISTORY: Never smoker. Lives in [place]. . FAMILY HISTORY: Type 2 diabetes. CURRENT MEDICATIONS: Include; 1. Cefepime. 2. Enoxaparin. 3. Glucagon. 4. Hydrocodone. 5. Vancomycin. 6. Ondansetron. PHYSICAL EXAMINATION: VITAL SIGNS: T-max 98.9, BP 109/54, pulse 82, respirations 16, O2 saturation 99. EXTREMITIES: The right foot appears well, there might be some bone exposure at the very end of the bottom of the wound, it is not covering with granulation tissue and that is going to be at risk for future infectious recrudescence, inflammatory process or complication. The left side though has a very long tract of exposure, going all the way to the 4th metatarsal with tenderness. The patient has normal pulses in dorsalis pedis. Cap refill normal. No lymphadenopathy. HEENT: Noncontributory. NECK: Supple. LUNGS: Symmetric, clear breath sounds. HEART: S1 and S2, regular rate without S3 or S4. ABDOMEN: Soft. Not distended or tender. No ascites. No bladder distention. MUSCULOSKELETAL: No joint inflammatory activity outside the involved area. Again, pulses are adequate in the distal lower extremities. NEUROLOGIC: Cognitive function appears to be intact. Nonfocal neuro examination. LABORATORY DATA: WBC count 12.2, hemoglobin 10.4, platelets 215, with a normal differential. Creatinine 0.84, which is normalized from admission. Liver profile normal. Alkaline phosphatase 135. CRP 8.67. ASSESSMENT: Type 2 diabetes with neuropathy and multiple alternating infections in right and left feet resulting in various transmetatarsal amputations. She almost has lost all her toes now and keeps having those problems with wound healing and recrudescence of inflammatory process, both right and left sides, and it is not clear what the reason for that, if it is a microvascular insufficiency that is not detected on physical exam, if it is related to contamination of the wound, but it is kind of quite vexing situation. Usually those wounds heal fairly promptly without this sort of experience that we have had with this lady. We will add Flagyl to the regimen, but the plan is to probably transition her to daptomycin plus ertapenem in the outpatient setting. Cultures should be submitted from the specimen submitted in the upcoming surgical procedure to confirm the microbiology. I expect her to have superinfection of the left side since it has remained open for such a protracted period of time since January without complete closure of the wound. She still has a PICC line and the dressing needs to be changed by the nurse. Job ID: [id number]
[2020-04-05] MEDS: Insulin Glargine 6 UNITS in Pre-Filled Syringe 1 EACH SC SCH (20:56)
[2020-04-05] MEDS: Vancomycin HCl 1.25 GM in Sodium Chloride 0.9% 250 ML 250 ML IVPB SCH (23:56)
[2020-04-06] MEDS: HYDROcodone/Acetaminophen 5/325 mg Tablet PO PRN ×3 (00:01→23:30)
[2020-04-06] MEDS: Cefepime 2 GM in Sodium Chloride 0.9% 100 ML IVPB SCH ×2 (05:55→18:16)
[2020-04-06] MEDS: Morphine 4 MG/ML VIAL SLOW IVP PRN ×3 (05:55→20:46)
[2020-04-06] MEDS: Gabapentin 300 MG CAP PO SCH ×3 (07:59→20:46)
[2020-04-06] MEDS: Famotidine 20 MG TAB PO SCH ×2 (07:59→20:46)
[2020-04-06] MEDS ORDERED: Sodium Chloride 0.9% 1,000 ML IV SCH (08:00)
[2020-04-06] MEDS: Enoxaparin Sodium 40 MG/0.4 ML SYRINGE SC SCH (08:45)
[2020-04-06] MEDS ORDERED: Insulin Glargine 6 UNITS in Pre-Filled Syringe 1 EACH SC SCH (09:00)
--- NOTE | 2020-04-06 10:07 | PDOC.HOSPP ---
- Subjective Encounter Date: 04/06/20 Encounter Time: 10:05 Subjective: Ms. Olson was seen today in follow-up of diabetic foot infection. She does not have any new complaints. - Objective Vital Signs & Weight: Vital Signs (12 hours) Temp Pulse Resp BP BP Pulse Ox 04/06/20 06:57 98.2 F 83 16 129/84 97 04/06/20 04:00 98.5 F 80 20 106/76 100 04/06/20 00:00 98.2 F 92 18 123/79 97 04/05/20 23:53 98.2 F 92 20 123/79 97 Weight Admit Weight 207 lb 3.68 oz Weight 207 lb 3.752 oz I&O: 04/05/20 04/06/20 04/07/20 06:59 06:59 06:59 Intake Total 325 Balance 325 Result Diagrams: 04/05/20 05:31 04/05/20 05:31 Additional Labs: Accuchecks 04/05/20 04/05/20 19:25 15:39 POC Glucose 223 H 231 H Hospitalist ROS - Medication Medications: Active Medications Generic Name Dose Route Start Last Admin Trade Name Freq PRN Reason Stop Dose Admin Hydrocodone Bitart/Acetaminophen 1 tab 04/05/20 02:27 04/06/20 00:01 Hydrocodone/Acetaminophen 5/325 Mg Tablet PO 1 tab Q4H PRN Administration Moderate Pain (4-6) Enoxaparin Sodium 40 mg 04/05/20 09:00 04/06/20 08:45 Enoxaparin Sodium 40 Mg/0.4 Ml Syringe SC Not Given 09 BOGDAN Famotidine 20 mg 04/05/20 09:00 04/06/20 07:59 Famotidine 20 Mg Tab PO Not Given BID BOGDAN Gabapentin 900 mg 04/05/20 09:00 04/06/20 07:59 Gabapentin 300 Mg Cap PO Not Given TID BOGDAN Cefepime HCl 2 gm/ Sodium 100 mls @ 200 mls/hr 04/05/20 06:00 04/06/20 05:55 Chloride IVPB 100 mls 0600,1800 BOGDAN Administration Vancomycin HCl 1.25 gm/ Sodium 250 mls @ 166.667 mls/hr 04/05/20 23:00 04/05/20 23:56 Chloride IVPB 250 mls 1100,2300 BOGDAN Administration Sodium Chloride 1,000 mls @ 100 mls/hr 04/06/20 08:00 04/06/20 08:45 Normal Saline 0.9% IV Not Given .Q10H BOGDAN Insulin Glargine 6 units/ 0.06 mls @ 0 mls/hr 04/05/20 21:00 04/05/20 20:56 Miscellaneous Medication SC 0.06 mls HS BOGDAN Administration Insulin Human Lispro 0 units 04/05/20 02:27 04/05/20 16:04 Humalog 300 Units/3 Ml Vial SC 4 unit .MODERATE SLIDING SC PRN Administration Moderate Correctional Scale Insulin Human Lispro 0 units 04/05/20 02:27 04/05/20 20:57 Humalog 300 Units/3 Ml Vial SC 2 unit .BEDTIME SLIDING SC PRN Administration Bedtime Correctional Scale Morphine Sulfate 4 mg 04/05/20 02:27 04/06/20 05:55 Morphine 4 Mg/Ml Vial SLOW IVP 4 mg Q4H PRN Administration Moderate to Severe Pain (6-10) Sodium Chloride 10 ml 04/05/20 21:00 04/06/20 08:00 Flush - Normal Saline 10 Ml Syringe IVF Not Given Q12HR BOGDAN - Exam Eye: PERRL, anicteric sclera Heart: RRR, no murmur, no gallops, no rubs, normal peripheral pulses Respiratory: CTAB, no wheezes, no rales, no ronchi, normal chest expansion, no tachypnea, normal percussion Gastrointestinal: soft, non-tender, non-distended, normal bowel sounds Extremities: no cyanosis, no edema (Open areas on both feet) Hosp A/P (1) Diabetic foot infection Code(s): E11.628 - TYPE 2 DIABETES MELLITUS WITH OTHER SKIN COMPLICATIONS; L08.9 - LOCAL INFECTION OF THE SKIN AND SUBCUTANEOUS TISSUE, UNSP Status: Acute (2) CKD (chronic kidney disease) stage 3, GFR 30-59 ml/min Code(s): N18.3 - CHRONIC KIDNEY DISEASE, STAGE 3 (MODERATE) Status: Chronic (3) DM2 (diabetes mellitus, type 2) Status: Chronic Qualifiers: Diabetes mellitus fdc insulin use: with fdc use Diabetes mellitus complication detail: with polyneuropathy (4) Diabetic neuropathy Code(s): E11.40 - TYPE 2 DIABETES MELLITUS WITH DIABETIC NEUROPATHY, UNSP Status: Chronic Qualifiers: Diabetes mellitus type: type 2 (5) HTN (hypertension) Code(s): I10 - ESSENTIAL (PRIMARY) HYPERTENSION Status: Chronic Qualifiers: - Plan * Diabetic foot infection- plan is foramputation of affected toes, and debridement * ID input appreciated. Antibiotics will be adjusted pending new culture results * DM- blood glucose is bit better. Can re-start her home insulin regimen once she has returned from surgery and is tolerating p.o. * HTN- blood pressure is stable
[2020-04-06] MEDS ORDERED: Lidocaine 1% PF 5 ML VIAL ONE (11:19)
[2020-04-06] MEDS ORDERED: Ondansetron PF 4 MG/2 ML Vial ONE (11:19)
[2020-04-06] MEDS ORDERED: PROPOFOL 200 MG/20 ML VIAL ONE (11:19)
[2020-04-06] MEDS ORDERED: EPHEDRINE 25 MG/5 ML SYRINGE ONE (11:19)
[2020-04-06] MEDS ORDERED: PHENYLEPHRINE-NS 100 MCG/ML 10 ML SYRINGE ONE (11:19)
[2020-04-06] MEDS: Vancomycin HCl 1.25 GM in Sodium Chloride 0.9% 250 ML 250 ML IVPB SCH (11:27)
[2020-04-06] MEDS ORDERED: Fentanyl 100 MCG/2 ML VIAL ONE ×3 (11:50→13:49)
[2020-04-06] MEDS ORDERED: Promethazine HCl 25 MG/ML VIAL SLOW IVP PRN (13:30)
[2020-04-06] MEDS ORDERED: Ondansetron HCl/PF 4 MG/2 ML Vial IVP PRN (13:30)
[2020-04-06] MEDS ORDERED: Promethazine HCl 25 MG/ML VIAL IM PRN (13:30)
[2020-04-06] MEDS ORDERED: Promethazine HCl 25 MG/ML VIAL ONE (13:57)
--- NOTE | 2020-04-06 18:06 | OP ---
DATE OF PROCEDURE: 04/06/2020 PREOPERATIVE DIAGNOSIS: Diabetic foot infection left foot with remaining 4th and 5th toes with neuropathic ulcer eroding into the metatarsophalangeal joint of the 4th toe. No evidence of PAD. Good blood supply. POSTOPERATIVE DIAGNOSIS: Diabetic foot infection left foot with remaining 4th and 5th toes with neuropathic ulcer eroding into the metatarsophalangeal joint of the 4th toe. No evidence of PAD. Good blood supply. PROCEDURE PERFORMED: Amputation of left 4th and 5th toes and metatarsals, wound left open for healing by secondary intention. Wound Care placed a wound VAC. Excellent blood supply. ANESTHESIA: General. DESCRIPTION OF PROCEDURE: The patient was taken to the operating room, where under general anesthesia, left lower extremity was prepared with Betadine and draped in routine fashion. Incision was made, preserving as much skin as possible, amputating the 4th and 5th toes and metatarsals transecting the metatarsal with a bone cutter and resecting it proximally with rongeurs. Hemostasis was gained with cautery. Connective tissue debrided sharply. Wound Care Team arrived to place wound VAC. The patient tolerated the procedure well. Job ID: [id number]
[2020-04-06] MEDS: HumaLOG 300 UNITS/3 ML VIAL SC PRN ×2 (18:29→20:47)
[2020-04-06] MEDS: Insulin Glargine 6 UNITS in Pre-Filled Syringe 1 EACH SC SCH (20:46)
[2020-04-07] MEDS: Vancomycin HCl 1.25 GM in Sodium Chloride 0.9% 250 ML 250 ML IVPB SCH ×3 (00:04→22:04)
[2020-04-07] MEDS: Morphine 4 MG/ML VIAL SLOW IVP PRN ×3 (06:30→20:37)
[2020-04-07] MEDS: Cefepime 2 GM in Sodium Chloride 0.9% 100 ML IVPB SCH (06:30)
[2020-04-07] MEDS: Gabapentin 300 MG CAP PO SCH ×3 (08:40→20:38)
[2020-04-07] MEDS: Famotidine 20 MG TAB PO SCH ×2 (08:44→20:38)
[2020-04-07] MEDS: Enoxaparin Sodium 40 MG/0.4 ML SYRINGE SC SCH (08:44)
[2020-04-07] MEDS: HYDROcodone/Acetaminophen 5/325 mg Tablet PO PRN ×4 (08:51→23:27)
[2020-04-07] MEDS ORDERED: HumuLIN 70/30 (300 UNITS/3 ML VIAL) SC SCH ×2 (09:00→21:00)
[2020-04-07] MEDS: HumuLIN 70/30 (300 UNITS/3 ML VIAL) SC SCH (09:54)
[2020-04-07 10:18] LABS: Vancomycin, Trough 19.1 ug/mL
--- NOTE | 2020-04-07 10:30 | PDOC.HOSPP ---
- Subjective Encounter Date: 04/07/20 Encounter Time: 10:28 Subjective: Ms. Olson was seen today in follow-up of diabetic foot infection. she says she feels fine. She walked with PT this morning. She notes some pain, but says it is tolerable. - Objective Vital Signs & Weight: Vital Signs (12 hours) Temp Pulse Resp BP BP Pulse Ox 04/07/20 07:25 98.8 F 74 16 101/68 97 04/07/20 04:00 98.7 F 78 18 127/83 98 04/07/20 00:00 98.2 F 94 18 143/86 H 99 Weight Admit Weight 207 lb 3.68 oz Weight 207 lb 3.752 oz I&O: 04/06/20 04/07/20 04/08/20 06:59 06:59 06:59 Intake Total 1450 Balance 1450 Result Diagrams: 04/05/20 05:31 04/05/20 05:31 Additional Labs: Accuchecks 04/07/20 04/06/20 04/06/20 05:44 21:05 15:46 POC Glucose 269 H 288 H 223 H 04/06/20 04/06/20 04/05/20 11:42 04:52 11:56 POC Glucose 260 H 280 H 304 H Hospitalist ROS - Medication Medications: Active Medications Generic Name Dose Route Start Last Admin Trade Name Freq PRN Reason Stop Dose Admin Hydrocodone Bitart/Acetaminophen 1 tab 04/05/20 02:27 04/07/20 08:51 Hydrocodone/Acetaminophen 5/325 Mg Tablet PO 1 tab Q4H PRN Administration Moderate Pain (4-6) Enoxaparin Sodium 40 mg 04/05/20 09:00 04/07/20 08:44 Enoxaparin Sodium 40 Mg/0.4 Ml Syringe SC 40 mg 0900 BOGDAN Administration Famotidine 20 mg 04/05/20 09:00 04/07/20 08:44 Famotidine 20 Mg Tab PO 20 mg BID BOGDAN Administration Gabapentin 900 mg 04/05/20 09:00 04/07/20 08:40 Gabapentin 300 Mg Cap PO 900 mg TID BOGDAN Administration Cefepime HCl 2 gm/ Sodium 100 mls @ 200 mls/hr 04/05/20 06:00 04/07/20 06:30 Chloride IVPB 100 mls 0600,1800 BOGDAN Administration Vancomycin HCl 1.25 gm/ Sodium 250 mls @ 166.667 mls/hr 04/05/20 23:00 04/07/20 00:04 Chloride IVPB 250 mls 1100,2300 BOGDAN Administration Insulin Human Isoph/Insulin Regular 40 units 04/07/20 09:00 04/07/20 09:54 Humulin 70/30 (300 Units/3 Ml Vial) SC 40 unit QAM BOGDAN Administration Insulin Human Lispro 0 units 04/05/20 02:27 04/06/20 18:29 Humalog 300 Units/3 Ml Vial SC 4 unit .MODERATE SLIDING SC PRN Administration Moderate Correctional Scale Insulin Human Lispro 0 units 04/05/20 02:27 04/06/20 20:47 Humalog 300 Units/3 Ml Vial SC 3 unit .BEDTIME SLIDING SC PRN Administration Bedtime Correctional Scale Morphine Sulfate 4 mg 04/05/20 02:27 04/07/20 06:30 Morphine 4 Mg/Ml Vial SLOW IVP 4 mg Q4H PRN Administration Moderate to Severe Pain (6-10) Sodium Chloride 10 ml 04/05/20 21:00 04/07/20 08:44 Flush - Normal Saline 10 Ml Syringe IVF 10 ml Q12HR BOGDAN Administration - Exam Eye: PERRL, anicteric sclera Heart: RRR, no murmur, no gallops, no rubs, normal peripheral pulses Respiratory: CTAB, no wheezes, no rales, no ronchi, normal chest expansion, no tachypnea, normal percussion Gastrointestinal: soft, non-distended, normal bowel sounds, no palpable masses, no hepatomegaly Extremities: no cyanosis, 1+ LE edema (slight edema in the lower extremities, mild discoloration) Hosp A/P (1) Diabetic foot infection Code(s): E11.628 - TYPE 2 DIABETES MELLITUS WITH OTHER SKIN COMPLICATIONS; L08.9 - LOCAL INFECTION OF THE SKIN AND SUBCUTANEOUS TISSUE, UNSP Status: Acute (2) CKD (chronic kidney disease) stage 3, GFR 30-59 ml/min Code(s): N18.3 - CHRONIC KIDNEY DISEASE, STAGE 3 (MODERATE) Status: Chronic (3) DM2 (diabetes mellitus, type 2) Status: Chronic Qualifiers: Diabetes mellitus long-term insulin use: with long-term use Diabetes mellit us complication detail: with polyneuropathy (4) Diabetic neuropathy Code(s): E11.40 - TYPE 2 DIABETES MELLITUS WITH DIABETIC NEUROPATHY, UNSP Status: Chronic Qualifiers: Diabetes mellitus type: type 2 (5) HTN (hypertension) Code(s): I10 - ESSENTIAL (PRIMARY) HYPERTENSION Status: Chronic Qualifiers: - Plan * Diabetic foot infection- she is s/p trans-metatarsal amputation * await ID input regarding antibiotic choice * DM-blood glucose is still elevated- will re-start 70/30, and lower the AM dose a little, then titrate back to her home dose * HTN- blood pressure is stable
[2020-04-07] MEDS: HumaLOG 300 UNITS/3 ML VIAL SC PRN ×2 (11:50→20:43)
--- NOTE | 2020-04-07 13:27 | PRG ---
DATE OF SERVICE: SUBJECTIVE: The patient had amputation by Dr. Vega. The operative report was reviewed and this was done yesterday. It was basically amputation of the left 4th and 5th toes and metatarsals. Wound left open with a wound VAC for healing. She does not have any other symptoms. No respiratory symptoms or abdominal pain. No diarrhea. Still having moderate pain. OBJECTIVE: VITAL SIGNS: Vital signs are normal. LUNGS: Clear. HEART: S1 and S2, regular rate. ABDOMEN: Soft, not distended. EXTREMITIES: The wound noted with all the toes now removed from the left side. LABORATORY DATA: White cell count 12.2, hemoglobin 10.4, platelets 215. Microbiology with Pantoea species in 2 sets of blood cultures. This could be contaminant or could be a true pathogen from the foot. ASSESSMENT AND DISCUSSION: Type 2 diabetes and recurring infections and ulcerations which have led to multiple toe amputations she has had. Now, she has pretty much transmet of right and left side of all the toes and going home now back on her previous treatment downstairs and we will add ciprofloxacin in view of the latest growths. Ciprofloxacin will be the usual dose of 500 b.i.d. and continue treating for protracted period of time. Job ID: [id number]
--- NOTE | 2020-04-07 14:40 | PRG ---
DATE OF SERVICE: 04/07/2020 Jeanne Olson is doing well today. Her foot wound VAC is in place. They had to change the VAC this morning because of bleeding. The pictures reveal excellent granulation bed. The patient did have two positive blood cultures from this hospitalization, on 04/04/2020, Pantoea species. We will await Dr. Phillips' antibiotic recommendations. From a surgery standpoint, the patient can be discharged home with outpatient wound VAC care and follow up in my office in 2 to 3 weeks. I will see her as needed this hospitalization. Please call if necessary. Job ID: [id number]
[2020-04-07] MEDS: Ciprofloxacin 500 MG TAB PO SCH (20:38)
[2020-04-08] MEDS: HumaLOG 300 UNITS/3 ML VIAL SC PRN ×2 (04:40→11:23)
[2020-04-08] MEDS: Morphine 4 MG/ML VIAL SLOW IVP PRN (04:40)
[2020-04-08] MEDS: Famotidine 20 MG TAB PO SCH (08:46)
[2020-04-08] MEDS: Ciprofloxacin 500 MG TAB PO SCH (08:46)
[2020-04-08] MEDS: Gabapentin 300 MG CAP PO SCH (08:46)
[2020-04-08] MEDS: Enoxaparin Sodium 40 MG/0.4 ML SYRINGE SC SCH (08:46)
[2020-04-08] MEDS: HumuLIN 70/30 (300 UNITS/3 ML VIAL) SC SCH (08:47)
[2020-04-08] MEDS: HYDROcodone/Acetaminophen 5/325 mg Tablet PO PRN (08:48)
[2020-04-08] MEDS: Vancomycin HCl 1.25 GM in Sodium Chloride 0.9% 250 ML 250 ML IVPB SCH (11:22)
--- NOTE | 2020-04-08 11:32 | PDOC.HOSPP ---
- Subjective Encounter Date: 04/08/20 Encounter Time: 11:31 Subjective: Ms. Olson was seen today in follow-up of diabetic foot ulcer. She notes some soreness in her feet when she walks, post-op. She says she needs something to " take the edge off". - Objective Vital Signs & Weight: Vital Signs (12 hours) Temp Pulse Resp BP Pulse Ox 04/08/20 07:13 98.5 F 78 18 127/81 99 04/08/20 00:00 98.2 F 96 20 143/83 H 99 Weight Admit Weight 207 lb 3.68 oz Weight 207 lb 3.752 oz I&O: 04/07/20 04/08/20 04/09/20 06:59 06:59 06:59 Intake Total 1450 1050 Balance 1450 1050 Result Diagrams: 04/05/20 05:31 04/05/20 05:31 Additional Labs: Accuchecks 04/08/20 04/08/20 04/07/20 10:57 04:14 23:31 POC Glucose 296 H 164 H 100 04/07/20 04/07/20 04/07/20 19:12 15:59 11:29 POC Glucose 223 H 94 288 H Hospitalist ROS - Medication Medications: Active Medications Generic Name Dose Route Start Last Admin Trade Name Freq PRN Reason Stop Dose Admin Hydrocodone Bitart/Acetaminophen 1 tab 04/05/20 02:27 04/08/20 08:48 Hydrocodone/Acetaminophen 5/325 Mg Tablet PO 1 tab Q4H PRN Administration Moderate Pain (4-6) Ciprofloxacin 500 mg 04/07/20 20:00 04/08/20 08:46 Ciprofloxacin 500 Mg Tab PO 500 mg 08,1999 BOGDAN Administration Enoxaparin Sodium 40 mg 04/05/20 09:00 04/08/20 08:46 Enoxaparin Sodium 40 Mg/0.4 Ml Syringe SC 40 mg 0900 BOGDAN Administration Famotidine 20 mg 04/05/20 09:00 04/08/20 08:46 Famotidine 20 Mg Tab PO 20 mg BID BOGDAN Administration Gabapentin 900 mg 04/05/20 09:00 04/08/20 08:46 Gabapentin 300 Mg Cap PO 900 mg TID BOGDAN Administration Vancomycin HCl 1.25 gm/ Sodium 250 mls @ 166.667 mls/hr 04/05/20 23:00 04/08/20 11:22 Chloride IVPB 250 mls 1100,2300 BOGDAN Administration Insulin Human Isoph/Insulin Regular 30 units 04/07/20 21:00 04/07/20 20:38 Humulin 70/30 (300 Units/3 Ml Vial) SC 30 unit QPM BOGDAN Administration Insulin Human Isoph/Insulin Regular 40 units 04/07/20 09:00 04/08/20 08:47 Humulin 70/30 (300 Units/3 Ml Vial) SC 40 unit QAM BOGDAN Administration Insulin Human Lispro 0 units 04/05/20 02:27 04/08/20 11:23 Humalog 300 Units/3 Ml Vial SC 6 unit .MODERATE SLIDING SC PRN Administration Moderate Correctional Scale Insulin Human Lispro 0 units 04/05/20 02:27 04/07/20 20:43 Humalog 300 Units/3 Ml Vial SC 2 unit .BEDTIME SLIDING SC PRN Administration Bedtime Correctional Scale Morphine Sulfate 4 mg 04/05/20 02:27 04/08/20 04:40 Morphine 4 Mg/Ml Vial SLOW IVP 4 mg Q4H PRN Administration Moderate to Severe Pain (6-10) Ondansetron HCl 4 mg 04/05/20 02:27 04/07/20 23:27 Ondansetron Pf 4 Mg/2 Ml Vial IVP 4 mg Q6H PRN Administration Nausea/Vomiting Sodium Chloride 10 ml 04/05/20 21:00 04/08/20 08:48 Flush - Normal Saline 10 Ml Syringe IVF 10 ml Q12HR BOGDAN Administration Tramadol HCl 100 mg 04/05/20 09:30 04/08/20 11:22 Tramadol Hcl 50 Mg Tab PO 100 mg Q6H PRN Administration Moderate Pain (4-6) - Exam Eye: PERRL, anicteric sclera Heart: RRR, no murmur, no gallops, no rubs, normal peripheral pulses Respiratory: CTAB, no wheezes, no rales, no ronchi, normal chest expansion, no tachypnea, normal percussion Gastrointestinal: soft, non-tender, non-distended, normal bowel sounds, no palpable masses, no hepatomegaly Extremities: no cyanosis, no edema Hosp A/P (1) Diabetic foot infection Code(s): E11.628 - TYPE 2 DIABETES MELLITUS WITH OTHER SKIN COMPLICATIONS; L08.9 - LOCAL INFECTION OF THE SKIN AND SUBCUTANEOUS TISSUE, UNSP Status: Acute (2) CKD (chronic kidney disease) stage 3, GFR 30-59 ml/min Code(s): N18.3 - CHRONIC KIDNEY DISEASE, STAGE 3 (MODERATE) Status: Chronic (3) DM2 (diabetes mellitus, type 2) Status: Chronic Qualifiers: Diabetes mellitus retirement insulin use: with retirement use Diabetes mellitus complication detail: with polyneuropathy (4) Diabetic neuropathy Code(s): E11.40 - TYPE 2 DIABETES MELLITUS WITH DIABETIC NEUROPATHY, UNSP Status: Chronic Qualifiers: Diabetes mellitus type: type 2 (5) HTN (hypertension) Code(s): I10 - ESSENTIAL (PRIMARY) HYPERTENSION Status: Chronic Qualifiers: - Plan * Diabetic foot infection- she is s/p trans-metatarsal amputation * Antibiotc recommendations noted * DM-blood glucose is still elevated- continue 70/30 insulin * HTN- blood pressure is stable * Home later today
[2020-04-08 13:21] VITALS: BP 130/78; TEMP 98.6
--- NOTE | 2020-04-09 | DIS ---
DATE OF ADMISSION: 04/04/2020 DATE OF DISCHARGE: 04/08/2020 DISCHARGE DISPOSITION: Home. DISCHARGE DIAGNOSES: 1. Left diabetic foot infection with presumed deep infection of probable osteomyelitis. 2. Diabetes mellitus type 2. 3. Diabetic neuropathy. 4. Obesity. DISCHARGE MEDICATIONS: The patient will continue IV daptomycin as per Dr. Phillips' recommendations. 1. Continue ciprofloxacin 500 mg p.o. b.i.d. 2. Gabapentin 900 mg p.o. t.i.d. 3. Insulin 70/30, 60 units subcutaneous q.a.m. and 30 units subcu q.p.m. CODE STATUS: Full code. ALLERGIES: TO CEFTRIAXONE. HOSPITAL COURSE: Ms. Olson is a pleasant 49-year-old female, who has a history of longstanding diabetic foot infections. She is status post recent amputation of the toes in February of 2020. She had been receiving IV daptomycin for the past six weeks and had been undergoing outpatient Wound Care at [facility]. She noticed increased drainage from both feet and some malodorous discharge. She also had some subjective chills as well. She was admitted to the hospital for failed outpatient treatment of the diabetic foot ulcers. General Surgery was consulted. It was felt that the remaining toes of 4th and 5th toes on the left foot were not salvageable. She underwent amputation of the remaining fourth and fifth toes on that foot with the wound debridement. Dr. Phillips was consulted with regard to antibiotic choice. Her blood cultures grew Pantoea species with 2/2 blood cultures. Ciprofloxacin was added to her regimen. Once the wound VAC was arranged, she was able to be discharged home with close outpatient followup. Job ID: [id number]
== END 2020-04-08 13:22 | disposition home or self-care (01) | DRG 617 ==
LOC: ERS 21:09 → T4-B 23:20
PROVIDERS: ADMIT Family Medicine; ATTEND Family Medicine
PROC: 0Y6W0Z1 Detachment at Left 4th Toe, High, Open Approach (ICD-10-PCS; principal; 2020-04-06)
PROC: 0Y6Y0Z1 Detachment at Left 5th Toe, High, Open Approach (ICD-10-PCS; 2020-04-06)
DX: E11.69 Type 2 diabetes mellitus with other specified complication (principal); M86.8X7 Other osteomyelitis, ankle and foot; E11.621 Type 2 diabetes mellitus with foot ulcer; Z20.828 Contact with and (suspected) exposure to other viral communicable diseases; L97.529 Non-pressure chronic ulcer of other part of left foot with unspecified severity; L97.519 Non-pressure chronic ulcer of other part of right foot with unspecified severity; E11.42 Type 2 diabetes mellitus with diabetic polyneuropathy; N17.9 Acute kidney failure, unspecified; N18.3 Chronic kidney disease, stage 3 (moderate); E66.9 Obesity, unspecified; I12.9 Hypertensive chronic kidney disease with stage 1 through stage 4 chronic kidney disease, or unspecified chronic kidney disease; E11.22 Type 2 diabetes mellitus with diabetic chronic kidney disease; Z89.432 Acquired absence of left foot; Z89.431 Acquired absence of right foot; Z88.1 Allergy status to other antibiotic agents; Z79.4 Long term (current) use of insulin; Z91.041 Radiographic dye allergy status; Z68.39 Body mass index [BMI] 39.0-39.9, adult
CPT/HCPCS: 36415; 36416; 36600; 80048; 80053; 80202; 83605; 85025; 85652; 86140; 87040; 87077; 87149; 87635; 88305; 88311; 96361; 96365; 96375; J0692; J0878; J1650; J1815; J2270; J2405; J2550; J2704; J3010; J3370; J3490; J7050; U0003

== ENCOUNTER 2020-04-15 16:00 | Inpatient (IN) | payer OTHER, SELFPAY ==
[2020-04-15] MEDS ORDERED: Morphine 4 MG/ML VIAL ONE (18:13)
[2020-04-15] MEDS ORDERED: Ondansetron PF 4 MG/2 ML Vial ONE (18:15)
--- NOTE | 2020-04-15 18:26 | RAD ---
XR Foot Lt 3 View STANDARD History: Wound pain Comparison: Radiograph April 04, 2020 Findings: From the comparison examination there are knee amputations of the fourth and fifth metatars als. Appears be a large wound over the soft tissue flap of the knee amputation site. Osteolysis of the phalanx amputation margins present. Impression: Concern for wound dehiscence over the new amputation site with osteomyelitis of the middl e phalanx amputation margin.
[2020-04-15 18:48] LABS: Hemoglobin 11.2 g/dL (12.0-16.0); Mean Corpuscular HGB CONC 33.8 g/dL (32.0-36.0); Mean Corpuscular Hemoglobin 28.2 pg (27.0-31.0); Mean Corpuscular Volume 83.5 fL (78.0-98.0); Mean Platelet Volume 8.5 fL (7.4-10.4); Platelet Count 292 thou/uL (130-400); RBC Distribution Width 13.7 % (11.5-14.5); Red Blood Cell (RBC) Count 3.95 mill/uL (4.20-5.40); White Blood Cell (WBC) Count 20.3 thou/uL (4.8-10.8)
[2020-04-15 19:06] LABS: ALT (SGPT) 12 U/L (8-55); AST (SGOT) 12 U/L (5-34); Albumin 3.5 g/dL (3.5-5.0); Alkaline Phosphatase 131 U/L (40-110); Anion Gap 16 mmol/L (10-20); BUN (Urea Nitrogen) 23 mg/dL (7.0-18.7); Bilirubin, Total 0.4 mg/dL (0.2-1.2); Calc. Creatinine Clearance 0 mL/min (70-130); Calcium 9.2 mg/dL (7.8-10.44); Carbon Dioxide 20 mmol/L (22-29); Chloride 99 mmol/L (98-107); Estimated GFR-MDRD 49; Globulin 4.8 g/dL (2.4-3.5); Glucose 298 mg/dL (70-105); Potassium 4.4 mmol/L (3.5-5.1); Protein, Total 8.3 g/dL (6.0-8.3); Sodium 131 mmol/L (136-145)
[2020-04-15 19:08] LABS: Band 3 % (5-11); Lymphocytes 13 % (21-51); MDiff Complete? YES; Monocytes 7 % (0-10); Neutrophil 73 % (42-75); Platelet Morphology Comment Appears Adequate; Polychromasia SLIGHT = 2-3 cells (100X) (0-2/hpf); Reactive Lymphocytes 4 % (0-10)
[2020-04-15] MEDS ORDERED: Cefepime 2 GM VIAL ONE ×2 (19:43)
[2020-04-15] MEDS ORDERED: Sodium Chloride 0.9% 100 ML ONE (19:44)
[2020-04-15] MEDS ORDERED: Vancomycin 1 GM/200 ML BAG ONE (20:21)
[2020-04-15] MEDS ORDERED: Dextrose 50% Abboject 50 ML SYRINGE SLOW IVP PRN (20:55)
[2020-04-15] MEDS ORDERED: Dextrose 5% in Water 1,000 ML IV PRN (20:55)
[2020-04-15] MEDS ORDERED: Labetalol HCl 100 MG/20 ML VIAL SLOW IVP PRN (20:56)
[2020-04-15] MEDS ORDERED: cloNIDine 0.1 MG TAB PO PRN (20:56)
[2020-04-15] MEDS ORDERED: Promethazine HCl 12.5 MG in Sodium Chloride 0.9% 50 ML IVPB PRN (20:56)
[2020-04-15] MEDS ORDERED: hydrALAZINE 20 MG/ML VIAL SLOW IVP PRN (20:56)
[2020-04-15] MEDS ORDERED: Guaifenesin DM 100-10/5 ML UDCUP PO PRN (20:56)
[2020-04-15] MEDS ORDERED: Acetaminophen 325 MG TAB PO PRN (20:56)
[2020-04-15] MEDS ORDERED: Electrolyte Replacement Protoc 1 EACH EACH FS SCH (21:00)
--- NOTE | 2020-04-15 21:10 | PDOC.HHP ---
Hospitalist HPI - History of Present Illness Wound dehiscence, rash History of Present Illness: Patient is 49 year old female with PMH diabetes who presents for wound issues on L foot. Patient had a partial foot amputation of L foot, had a wound vac and was going to wound care clinic from home twice a week, she reports no issues until this most recent visit where they noticed issues with wound, left vac off and packed it and referred patient to ED. Here, evaluation shows open foot wound with erythema and edema of surrounding tissue and appears dehisced, Dr Vega performed original operation, patient has diabetes and takes 70/30, 60 units in morning and 30 units at night. she is getting abx cipro and iv daptomycin through [facility]. Dr Phillips called in ED recent admission was 04/04-04/08, she had amputation of remaining toes on L foot that admission, 2/2 positive bcx prompting addition of cipro to abx. dr phillips called from ED here, patient admitted for workup and care Hospitalist ROS - Review of Systems Constitutional: denies: fever, chills, sweats, weakness, malaise, other Eyes: denies: pain, vision change, conjunctivae inflammation, eyelid inflammation, redness, other ENT: denies: ear pain, ear discharge, nose pain, nose discharge, nose congestion, mouth pain, mouth swelling, throat pain, throat swelling, other Respiratory: denies: cough, dry, shortness of breath, hemoptysis, SOB with excertion, pleuritic pain, sputum, wheezing, other Cardiovascular: denies: chest pain, palpitations, orthopnea, paroxysmal noc. dyspnea, edema, light headedness, other Gastrointestinal: denies: nausea, vomiting, abdominal pain, diarrhea, constipation, melena, hematochezia, other Genitourinary: denies: dysuria, frequency, incontinence, hematuria, retention, other Musculoskeletal: reports: foot pain. denies: neck pain, shoulder pain, arm pain, back pain, hand pain, leg pain, other Skin: reports: rash, lesions (per hpi open wound) Neurological: denies: weakness, numbness, incoordination, change in speech, co nfusion, seizures, other All other systems reviewed; all pertinent +/- noted in HPI/Subj - Medication Medications: reviewed, see admission documents for list Hospitalist History - Past Medical History Other Medical History: T2DM, neuropathy, DM ulcers - Past Surgical History Other Surgical History: toe/MT amputations L foot C section x 3 L shoulder surgery - Family History Other Family History: mother w/ DM father w/ DM, HTN, CAD - Social History Smoking Status: Never smoker Alcohol: reports: None Drugs: reports: none - Exam General Appearance: NAD, awake alert Eye: PERRL, anicteric sclera ENT: normocephalic atraumatic, no oropharyngeal lesions, moist mucosa Neck: supple, symmetric, no JVD, no thyromegaly, no lymphadenopathy, no carotid bruit Heart: RRR, no murmur, no gallops, no rubs, normal peripheral pulses Respiratory: CTAB, no wheezes, no rales, no ronchi, normal chest expansion, no tachypnea, normal percussion Gastrointestinal: soft, non-tender, non-distended, normal bowel sounds, no palpable masses, no hepatomegaly, no splenomegaly, no bruit Extremities - other findings: L foot w/ dehisched wound L foot, erythema and edema surrounding Skin: normal turgor, no lesions, no rashes Neurological: cranial nerve grossly intact, normal sensation to touch, no weakness, no focal deficits, no new deficit Musculoskeletal: normal tone, normal strength, no muscle wasting Psychiatric: normal affect, normal behavior, A&O x 3 Hospitalist Results - Labs Result Diagrams: 04/15/20 18:37 04/15/20 18:37 Lab results: WBC 20.3 thou/uL (4.8-10.8) H 04/15/20 18:37 Hgb 11.2 g/dL (12.0-16.0) L 04/15/20 18:37 Hct 33.0 % (36.0-47.0) L 04/15/20 18:37 MCV 83.5 fL (78.0-98.0) 04/15/20 18:37 Plt Count 292 thou/uL (130-400) 04/15/20 18:37 Band Neuts % (Manual) 3 % (5-11) L 04/15/20 18:37 Sodium 131 mmol/L (136-145) L 04/15/20 18:37 Potassium 4.4 mmol/L (3.5-5.1) 10/09/20 18:37 Chloride 99 mmol/L (98-107) 04/15/20 18:37 Carbon Dioxide 20 mmol/L (22-29) L 04/15/20 18:37 BUN 23 mg/dL (7.0-18.7) H 04/15/20 18:37 Creatinine 1.19 mg/dL (0.6-1.1) H 04/15/20 18:37 Glucose 298 mg/dL (70-105) H 04/15/20 18:37 Lactic Acid 1.8 mmol/L (0.5-2.2) 04/15/20 18:37 Calcium 9.2 mg/dL (7.8-10.44) 04/15/20 18:37 Total Bilirubin 0.4 mg/dL (0.2-1.2) 04/15/20 18:37 AST 12 U/L (5-34) 04/15/20 18:37 ALT 12 U/L (8-55) 04/15/20 18:37 Alkaline Phosphatase 131 U/L (40-110) H 04/15/20 18:37 Serum Total Protein 8.3 g/dL (6.0-8.3) 04/15/20 18:37 Albumin 3.5 g/dL (3.5-5.0) 04/15/20 18:37 Additional comment: labs, imaging, ed documents, microbiology/old cultures reviewed Hospitalist H&P A/P - Plan Plan: Patient is 49 year old female with PMH diabetes who presents for wound issues on L foot. # osteomyelitis, cellulitis L foot # sepsis due to osteomyelitis and cellulitis Patient had a partial foot amputation of L foot, had a wound vac and was going to wound care clinic from home twice a week, she reports no issues until this most recent visit where they noticed issues with wound, left vac off and packed it and referred patient to ED. Here, evaluation shows open foot wound with erythema and edema of surrounding tissue and appears dehisced, Dr Vega performed original operation - admit to floor - start vancomycin/unasyn/levaquin - consult ID, general surgery - wound and blood cultures # DM - takes 70/30, 60 units in morning and 30 units at night - switch to lantus 60u qam and 30u qpm w/ SSI # DVT/GI ppx
[2020-04-15] MEDS: Ampicillin/Sulbactam 3 GM in Sodium Chloride 0.9% 100 ML IVPB SCH (22:23)
[2020-04-15] MEDS: Sodium Chloride 0.9% 1,000 ML IV SCH (22:23)
[2020-04-15] MEDS: Morphine 4 MG/ML VIAL SLOW IVP PRN (22:24)
[2020-04-15 22:47] VITALS: BMI 38.9
[2020-04-15] MEDS: HYDROcodone/Acetaminophen 5/325 mg Tablet PO PRN (23:02)
[2020-04-16] MEDS: Insulin Glargine 30 UNITS in Pre-Filled Syringe 1 EACH SC SCH ×2 (00:26→22:16)
[2020-04-16] MEDS: Heparin 5,000 UNITS/ML VIAL SC SCH ×3 (00:26→22:15)
[2020-04-16] MEDS: Morphine 4 MG/ML VIAL SLOW IVP PRN ×2 (03:29→08:10)
[2020-04-16] MEDS: HYDROcodone/Acetaminophen 5/325 mg Tablet PO PRN ×3 (03:31→23:14)
[2020-04-16] MEDS ORDERED: Vicks VapoRub 50 gm Jar TOP PRN (03:41)
[2020-04-16] MEDS: Ampicillin/Sulbactam 3 GM in Sodium Chloride 0.9% 100 ML IVPB SCH ×3 (04:01→15:23)
[2020-04-16 05:30] LABS: #Basophils 0.1 thou/uL (0.0-0.2); #Eosinphils 0.3 thou/uL (0.0-0.7); #Lymphocytes 3.6 thou/uL (1.20-3.40); #Monocytes 1.2 thou/uL (0.11-0.59); #Neutrophils 10.2 thou/uL (1.40-6.50); %Basophils 0.5 % (0.0-1.0); %Eosinophils 2.2 % (0.0-10.0); %Lymphocytes 23.1 % (21.0-51.0); %Monocytes 7.5 % (0.0-10.0); %Neutrophils 66.7 % (42.0-75.0); Hemoglobin 9.5 g/dL (12.0-16.0); Mean Corpuscular HGB CONC 32.9 g/dL (32.0-36.0); Mean Corpuscular Volume 85.1 fL (78.0-98.0); Mean Platelet Volume 8.4 fL (7.4-10.4); Platelet Count 287 thou/uL (130-400); RBC Distribution Width 13.4 % (11.5-14.5); White Blood Cell (WBC) Count 15.4 thou/uL (4.8-10.8)
[2020-04-16 05:55] LABS: Anion Gap 13 mmol/L (10-20); BUN (Urea Nitrogen) 24 mg/dL (7.0-18.7); Calc. Creatinine Clearance 88 mL/min (70-130); Calcium 8.7 mg/dL (7.8-10.44); Carbon Dioxide 25 mmol/L (22-29); Chloride 100 mmol/L (98-107); Estimated GFR-MDRD 50; Glucose 299 mg/dL (70-105); Magnesium 1.9 mg/dL (1.6-2.6); Potassium 4.1 mmol/L (3.5-5.1); Sodium 134 mmol/L (136-145)
[2020-04-16] MEDS: HumaLOG 300 UNITS/3 ML VIAL SC PRN (06:44)
[2020-04-16] MEDS: Ondansetron PF 4 MG/2 ML Vial IVP PRN ×2 (08:09→17:19)
[2020-04-16] MEDS: Insulin Glargine 60 UNITS in Pre-Filled Syringe 1 EACH SC SCH (08:10)
[2020-04-16] MEDS: Sodium Chloride 0.9% 1,000 ML IV SCH ×2 (08:12→15:28)
[2020-04-16] MEDS ORDERED: Magnesium 2 GM/50 ML 2 GM in Premix Bag 1 BAG IVPB SCH (08:15)
[2020-04-16] MEDS: Polyethylene Glycol 3350 17 GM Packet PO SCH (08:20)
[2020-04-16] MEDS ORDERED: Vancomycin 1 GM in Premix Bag 1 BAG IVPB SCH (09:00)
[2020-04-16] MEDS ORDERED: FLU VACC QS2020-21(6MOS UP)/PF 60 MCG/0.5 ML SYRINGE IM ONE (09:00)
[2020-04-16 10:59] LABS: Bacteria/HPF None Seen HPF (None Seen); Bilirubin Negative (Negative); Blood, Urine 3+ (Negative); Clarity Clear (Clear); Glucose, Urine (Dipstick) 30 mg/dL (Negative); Ketone, Urine Negative (Negative); Leukocyte Negative Leu/uL (Negative); Nitrite Negative (Negative); Protein, Urine (Dipstick) 50 mg/dL (Neg-Trace); Specific Gravity, Urine 1.009 (1.002-1.036); Squamous Epithelial 0-3 HPF (0-3); Urobilinogen Normal mg/dL (Less than 2); WBC/HPF 0-3 HPF (0-3); pH, Urine 6.5 (5.0-9.0)
[2020-04-16 11:05] LABS: Urine Culture Reflex No No
[2020-04-16] MEDS ORDERED: Calcium Carbonate 500 MG ChewTAB PO PRN (13:30)
--- NOTE | 2020-04-16 13:59 | RAD ---
Chest one view HISTORY: Chest pain. COMPARISON: 02/20/2020. FINDINGS: Cardiac silhouette is magnified by projection. Pulmonary vasculature is unremarkable. Mediastinum is midline with right upper extremity PICC partially visualized. No lobar consolidation or evidence of pneumothorax. IMPRESSION : No active cardiopulmonary abnormalities are demonstrated.
[2020-04-16 15:25] LABS: SARS-CoV-2 MS2 Positive; SARS-CoV-2 N Gene Negative; SARS-CoV-2 S Gene Negative; SARS-CoV-2 by NAA Not Detected (NotDetected); SARS-CoV-2 orf1ab Negative
--- NOTE | 2020-04-16 17:25 | CON ---
DATE OF CONSULTATION: 04/16/2020 HISTORY OF PRESENT ILLNESS: Ms. Olson was just recently discharged from the hospital. She has had recurring complications related to diabetes and ulcerations, neuropathy in the right and left feet and ended up with transmetatarsal amputations of right and left sides. The last one was on the left side and the cultures have yielded MRSA group B strep and then MRSA again in January and 2 sets of blood cultures from March. She was discharged on daptomycin and Cipro and now comes back with worsening pain, the wound was looking worse. There was an odor and now she has a gram-negative kayode persisting in the foot ulcer site. She is feeling unwell, some chills, some headaches. No sore throat, odynophagia, or dysphagia, sometimes with dyspnea, but no cough. No sputum production. Has this epigastric burning sensation. No diarrhea. No genitourinary symptoms, although she does feel sometimes difficulty and voiding, but no dysuria. No back pain. PAST MEDICAL HISTORY: Type 2 diabetes. Neuropathy; multiple amputations, right and left feet, which have culminated in almost transmetatarsal amputation of right side and transmetatarsal amputation of all the toes on the left side, the most recent one at the end of March and beginning of April. The patient has a PICC line. She has been receiving daptomycin and oral ciprofloxacin after the recent discharge. She has had a kidney abscess in the past with MSSA bacteremia and multiple courses of IV therapy, oral antimicrobial therapy. ALLERGIES: IODINE. SOCIAL HISTORY: Never smoker. . Lives in [place]. FAMILY HISTORY: Type 2 diabetes. CURRENT MEDICATIONS: She is on: 1. Ampicillin. 2. Levofloxacin. 3. Vancomycin. PHYSICAL EXAMINATION: VITAL SIGNS: She is afebrile, blood pressure 130/80, heart rate 88, respiratory rate 18, and O2 saturation 100 on room air. GENERAL: Appears ill, but in no acute distress, oriented. SKIN: Shows the transmetatarsal amputation of left side with this yellowish exudate medial aspect and then the remainder has a granulation tissue. There is undermining in the more lateral aspect. The right side does not have any issues. She still has the 1st, the 4th, and 5th toes missing the second and third toes on the right side. Has PICC line in place. She is voiding in the bedside commode. No lymphadenopathy. HEENT: Ocular movements conjugate. Oral cavity with a few missing teeth. Oral mucosa normal. NECK: Supple. No jugular venous distention. LUNGS: Symmetric. Clear breath sounds. HEART: S1 and S2. Regular rate. No S3 or S4. ABDOMEN: Soft, not distended or tender. No ascites. No bladder distention. EXTREMITIES: Pulses are 1+ in dorsalis pedis. Capillary refill is normal. NEUROLOGIC: Nonfocal. LABORATORY DATA: White cell count 20,000, now 15.4; hemoglobin 9.5; platelets 287; 66% neutrophils; bands are 3. Creatinine is 1.17. GFR at 50 and that is a bit higher than her baseline. Bilirubin was 0.4, AST 12, ALT 12, alkaline phosphatase 131, albumin 3.5, globulin 4.8. Urinalysis, 0 to 3 wbc's. COVID was not detected. Cultures have been discussed above. Two sets of blood cultures are pending. There is a chest x-ray from this admission with no active abnormalities noted. ASSESSMENT: Type 2 diabetes; various amputations, right and left feet with recurring refractory ulcerations, inflammatory process, now with readmission just after recent discharge. The reason for this readmission maybe because the parental area could not be susceptibility tested and may have been resistant to the quinolone. Davida used to be called Enterobacter agglomerans in the past and at this point, we will switch her to meropenem, discontinue levofloxacin and Unasyn, and maintain vancomycin. We will see how her wound progresses and inflammatory markers and temperature, and if it works out well, then we will transition the outpatient setting to daptomycin and ertapenem instead of oral Cipro. Job ID: [id number]
--- NOTE | 2020-04-16 19:32 | PDOC.HOSPP ---
- Subjective Encounter Date: 04/16/20 Encounter Time: 15:00 Subjective: The patient reported sharp pain in her abdomen radiating to her chest, described it as a dull ache. She states the pain was worst with taking a deep breath. She declined narcotics. EKG was normal and chest Xray unremarkable. SHe was given tums and pain resolved Left foot osteo- pain in her right foot is relatively well controlled. She has no toes left in her left leg and has only a few toes in her right leg. She states her pain was unbearable and she was barely able to walk at home. She st ates a home health nurse saw her a few days ago and noted foul smelling discharge - Objective Vital Signs & Weight: Vital Signs (12 hours) Temp Pulse Resp BP Pulse Ox 04/16/20 14:55 98.5 F 88 18 134/85 100 04/16/20 11:05 98.2 F 73 16 102/67 98 04/16/20 08:12 98 Weight Weight 206 lb Result Diagrams: 04/16/20 05:00 04/16/20 05:00 Additional Labs: Accuchecks 04/16/20 04/16/20 04/16/20 15:00 11:13 08:36 POC Glucose 179 H 140 H 148 H 04/16/20 04/16/20 05:45 00:29 POC Glucose 293 H 291 H Hospitalist ROS - Review of Systems Constitutional: denies: fever, chills - Medication Medications: Active Medications Generic Name Dose Route Start Last Admin Trade Name Freq PRN Reason Stop Dose Admin Hydrocodone Bitart/Acetaminophen 1 tab 04/15/20 20:56 04/16/20 09:12 Hydrocodone/Acetaminophen 5/325 Mg Tablet PO 1 tab Q4H PRN Administration Moderate Pain (4-6) Calcium Carbonate 1,000 mg 04/16/20 13:30 04/16/20 13:54 Calcium Carbonate 500 Mg Chewtab PO 1,000 mg Q4H PRN Administration Heartburn or Indigestion Camphor/Menthol/Eucalyptus 1 gm 04/16/20 03:41 04/16/20 04:05 Vicks Vaporub 50 Gm Jar TOP 1 applic PRN PRN Administration Chest Congestion/Secretions Heparin Sodium (Porcine) 5,000 units 04/15/20 21:00 04/16/20 08:11 Heparin 5,000 Units/Ml Vial SC 5,000 units BID BOGDAN Administration Insulin Glargine 30 units/ 0.3 mls @ 0 mls/hr 04/15/20 21:00 04/16/20 00:26 Miscellaneous Medication SC 0.3 mls HS BOGDAN Administration Insulin Glargine 60 units/ 0.6 mls @ 0 mls/hr 04/16/20 09:00 04/16/20 08:10 Miscellaneous Medication SC 0.6 mls QAM BOGDAN Administration Sodium Chloride 1,000 mls @ 100 mls/hr 04/15/20 21:00 04/16/20 15:28 Normal Saline 0.9% IV Not Given .Q10H BOGDAN Promethazine HCl 12.5 mg/ 50.5 mls @ 202 mls/hr 04/15/20 20:56 04/16/20 15:23 Sodium Chloride IVPB 50.5 mls Q6H PRN Administration Nausea/vomiting use second Insulin Human Lispro 0 units 04/15/20 20:55 04/16/20 06:44 Humalog 300 Units/3 Ml Vial SC 6 unit .MODERATE SLIDING SC PRN Administration Moderate Correctional Scale Morphine Sulfate 4 mg 04/15/20 21:00 04/16/20 08:10 Morphine 4 Mg/Ml Vial SLOW IVP 4 mg Q4H PRN Administration Moderate to Severe Pain (6-10) Ondansetron HCl 4 mg 04/15/20 20:56 04/16/20 17:19 Ondansetron Pf 4 Mg/2 Ml Vial IVP 4 mg Q6H PRN Administration Nausea/Vomiting use 1st Pantoprazole Sodium 40 mg 04/16/20 09:00 04/16/20 08:11 Pantoprazole 40 Mg Tab PO 40 mg DAILY BOGDAN Administration Polyethylene Glycol 17 gm 04/16/20 09:00 04/16/20 08:20 Polyethylene Glycol 3350 17 Gm Packet PO Not Given DAILY BOGDAN - Exam General Appearance: NAD, awake alert Eye: PERRL, anicteric sclera ENT: normocephalic atraumatic, no oropharyngeal lesions Neck: no JVD Heart: RRR, no murmur, no gallops, no rubs Respiratory: CTAB, no wheezes, no rales, no ronchi Gastrointestinal: soft, non-distended, normal bowel sounds Gastrointestinal - other findings: diffuse mild tenderness Extremities: no cyanosis, no clubbing, no edema Skin: normal turgor, no lesions, no rashes Neurological: cranial nerve grossly intact, normal sensation to touch, no weakness Musculoskeletal: normal tone, normal strength, no muscle wasting Hosp A/P - Plan Left foot X ray: wound dehiscence at amputation site with osteomyelitis of the middle phalanx amputation stump margin This is a 49 year old female who presented with worsenin gpain on her left foot with a foul odor Left foot osteomyelitis - blood cultures are negative. Bacterial cultures are growing gram negative kayode, foot X ray showing osteomyelitis at middle phalanx amputation stump margin. WBC has come down to 15.4. - patient was switched to IV vancomycin and meropenem given prior Pantoea bacteremia 04/04 with plan to transition to daptomycin and ertapenem on discharge - general surgery has been consulted Chest pain - likely from GERD - EKG unremarkable. Troponin negative x 1 - CKD - creatinine 1.17, stable Anemia -HB dropped from 11 to 9.5. Will recheck tomorrow - check iron panel in the am Code status: full code
[2020-04-16] MEDS ORDERED: Gabapentin 300 MG CAP PO SCH (22:15)
[2020-04-16] MEDS: MEROPENEM 1 GM/50 ML 1 GM in Premix Bag 1 BAG IVPB SCH (22:16)
[2020-04-16] MEDS: Vancomycin 1.5 GRAM/300 ML BAG 1.5 GM in Premix Bag 1 BAG IVPB SCH (22:16)
[2020-04-16] MEDS ORDERED: Bisacodyl 5 MG TAB PO PRN (22:49)
[2020-04-16] MEDS: Senokot S 8.6-50 MG TAB PO PRN (23:00)
[2020-04-16 23:19] LABS: Bacteria/HPF Rare-Few HPF (None Seen); Bilirubin Negative (Negative); Blood, Urine 2+ (Negative); Clarity Clear (Clear); Glucose, Urine (Dipstick) 150 mg/dL (Negative); Ketone, Urine Negative (Negative); Leukocyte Negative Leu/uL (Negative); Nitrite Negative (Negative); Protein, Urine (Dipstick) 100 mg/dL (Neg-Trace); RBC/HPF 21-50 HPF (0-3); Specific Gravity, Urine 1.017 (1.002-1.036); Urobilinogen Normal mg/dL (Less than 2); WBC/HPF 0-3 HPF (0-3); pH, Urine 6.5 (5.0-9.0)
[2020-04-16 23:20] LABS: Urine Culture Reflex No No
[2020-04-17 05:52] LABS: Hemoglobin 9.6 g/dL (12.0-16.0); Mean Corpuscular HGB CONC 32.3 g/dL (32.0-36.0); Mean Corpuscular Hemoglobin 27.7 pg (27.0-31.0); Mean Corpuscular Volume 85.6 fL (78.0-98.0); Mean Platelet Volume 8.5 fL (7.4-10.4); Platelet Count 309 thou/uL (130-400); RBC Distribution Width 13.4 % (11.5-14.5); Red Blood Cell (RBC) Count 3.45 mill/uL (4.20-5.40); White Blood Cell (WBC) Count 12.1 thou/uL (4.8-10.8)
[2020-04-17 06:14] LABS: Iron 10 ug/dL (50-170); Iron Binding Capacity, Total 194 mcg/dL (265-497)
[2020-04-17] MEDS: Sodium Chloride 0.9% 1,000 ML IV SCH ×3 (06:50→18:15)
[2020-04-17] MEDS: MEROPENEM 1 GM/50 ML 1 GM in Premix Bag 1 BAG IVPB SCH ×3 (06:53→21:00)
[2020-04-17] MEDS: HumaLOG 300 UNITS/3 ML VIAL SC PRN ×3 (06:54→18:03)
[2020-04-17] MEDS: HYDROcodone/Acetaminophen 5/325 mg Tablet PO PRN ×3 (08:18→18:14)
[2020-04-17] MEDS: Gabapentin 300 MG CAP PO SCH ×3 (08:19→20:59)
[2020-04-17] MEDS: Heparin 5,000 UNITS/ML VIAL SC SCH ×2 (08:20→20:59)
[2020-04-17] MEDS: Insulin Glargine 60 UNITS in Pre-Filled Syringe 1 EACH SC SCH (08:20)
[2020-04-17] MEDS: Polyethylene Glycol 3350 17 GM Packet PO SCH (08:22)
[2020-04-17] MEDS: Vancomycin 1.5 GRAM/300 ML BAG 1.5 GM in Premix Bag 1 BAG IVPB SCH ×2 (08:22→20:59)
[2020-04-17] MEDS: Morphine 4 MG/ML VIAL SLOW IVP PRN ×3 (08:33→21:00)
[2020-04-17 10:09] LABS: Anion Gap 13 mmol/L (10-20); BUN (Urea Nitrogen) 16 mg/dL (7.0-18.7); Calc. Creatinine Clearance 92 mL/min (70-130); Calcium 8.5 mg/dL (7.8-10.44); Carbon Dioxide 21 mmol/L (22-29); Chloride 106 mmol/L (98-107); Estimated GFR-MDRD 53; Glucose 186 mg/dL (70-105); Potassium 3.8 mmol/L (3.5-5.1); Sodium 136 mmol/L (136-145)
--- NOTE | 2020-04-17 16:54 | PDOC.HOSPP ---
- Subjective Encounter Date: 04/17/20 Encounter Time: 10:00 Subjective: The patient states that she has diarrhea. She reports having 5-6 episodes, but not noted by nursing. She takes imodium at home prn for IBS. She reports dizziness and lightheadedness. She vomited 4-5 times. She denies chest pain She also reports having on and off foot pain in her left foot. Dr. Raza stated to place consult for Dr. Soto tomorrow since Dr. Vega not available until Saturday. She reports noticing discharge from foot today. SHe states wound care has not seen her and nurses changed her bandage and it had a foul smell. - Objective Vital Signs & Weight: Vital Signs (12 hours) Temp Pulse Resp BP BP Pulse Ox 04/17/20 15:36 98.2 F 84 14 111/73 100 04/17/20 10:54 98.2 F 83 16 100/65 100 04/17/20 07:31 97.9 F 97 16 113/72 100 Weight Weight 206 lb I&O: 04/16/20 04/17/20 04/18/20 06:59 06:59 06:59 Intake Total 240 720 Balance 240 720 Result Diagrams: 04/17/20 04:56 04/17/20 09:42 Additional Labs: Accuchecks 04/17/20 04/17/20 04/17/20 15:42 11:02 06:57 POC Glucose 157 H 174 H 228 H 04/16/20 22:19 POC Glucose 136 H Hospitalist ROS - Review of Systems Constitutional: denies: fever, chills - Medication Medications: Active Medications Generic Name Dose Route Start Last Admin Trade Name Freq PRN Reason Stop Dose Admin Acetaminophen 650 mg 04/15/20 20:56 04/16/20 22:16 Acetaminophen 325 Mg Tab PO 650 mg Q4H PRN Administration Headache/Fever/Mild Pain (1-3) Hydrocodone Bitart/Acetaminophen 1 tab 04/15/20 20:56 04/17/20 12:50 Hydrocodone/Acetaminophen 5/325 Mg Tablet PO 1 tab Q4H PRN Administration Moderate Pain (4-6) Calcium Carbonate 1,000 mg 04/16/20 13:30 04/16/20 13:54 Calcium Carbonate 500 Mg Chewtab PO 1,000 mg Q4H PRN Administration Heartburn or Indigestion Camphor/Menthol/Eucalyptus 1 gm 04/16/20 03:41 04/16/20 04:05 Vicks Vaporub 50 Gm Jar TOP 1 applic PRN PRN Administration Chest Congestion/Secretions Gabapentin 900 mg 04/17/20 09:00 04/17/20 14:59 Gabapentin 300 Mg Cap PO 900 mg TID BOGDAN Administration Heparin Sodium (Porcine) 5,000 units 04/15/20 21:00 04/17/20 08:20 Heparin 5,000 Units/Ml Vial SC 5,000 units BID BOGDAN Administration Insulin Glargine 30 units/ 0.3 mls @ 0 mls/hr 04/15/20 21:00 04/16/20 22:16 Miscellaneous Medication SC Not Given HS BOGDAN Insulin Glargine 60 units/ 0.6 mls @ 0 mls/hr 04/16/20 09:00 04/17/20 08:20 Miscellaneous Medication SC 0.6 mls QAM BOGDAN Administration Sodium Chloride 1,000 mls @ 100 mls/hr 04/15/20 21:00 04/17/20 16:30 Normal Saline 0.9% IV Not Given .Q10H BOGDAN Promethazine HCl 12.5 mg/ 50.5 mls @ 202 mls/hr 04/15/20 20:56 04/16/20 15:23 Sodium Chloride IVPB 50.5 mls Q6H PRN Administration Nausea/vomiting use second Vancomycin HCl 1.5 gm/ Device 300 mls @ 200 mls/hr 04/16/20 21:00 04/17/20 08:22 IVPB 300 mls Q12HR BOGDAN Administration Meropenem 1 gm/ Device 50 mls @ 100 mls/hr 04/16/20 22:00 04/17/20 15:12 IVPB 50 mls Q8HR BOGDAN Administration Insulin Human Lispro 0 units 04/15/20 20:55 04/17/20 12:52 Humalog 300 Units/3 Ml Vial SC 2 unit .MODERATE SLIDING SC PRN Administration Moderate Correctional Scale Morphine Sulfate 4 mg 04/15/20 21:00 04/17/20 15:01 Morphine 4 Mg/Ml Vial SLOW IVP 4 mg Q4H PRN Administration Moderate to Severe Pain (6-10) Ondansetron HCl 4 mg 04/15/20 20:56 04/16/20 17:19 Ondansetron Pf 4 Mg/2 Ml Vial IVP 4 mg Q6H PRN Administration Nausea/Vomiting use 1st Pantoprazole Sodium 40 mg 04/16/20 09:00 04/17/20 08:19 Pantoprazole 40 Mg Tab PO 40 mg DAILY BOGDAN Administration Polyethylene Glycol 17 gm 04/16/20 09:00 04/17/20 08:22 Polyethylene Glycol 3350 17 Gm Packet PO Not Given DAILY BOGDAN Senna/Docusate Sodium 2 tab 04/16/20 22:49 04/16/20 23:00 Senokot S 8.6-50 Mg Tab PO 2 tab BIDPRN PRN Administration Constipation - Exam General Appearance: NAD, awake alert Eye: PERRL, anicteric sclera ENT: normocephalic atraumatic, no oropharyngeal lesions Neck: no JVD Heart: RRR, no murmur, no gallops, no rubs Respiratory: CTAB, no wheezes, no rales, no ronchi Gastrointestinal: soft, non-tender, non-distended, normal bowel sounds Extremities: no cyanosis, no clubbing, no edema Extremities - other findings: left foot with significant erythema, purulent discharge Skin: normal turgor, no lesions, no rashes Neurological: cranial nerve grossly intact, normal sensation to touch, no weakness Musculoskeletal: normal tone, normal strength, no muscle wasting Psychiatric: normal affect, normal behavior, A&O x 3 Hosp A/P - Plan Left foot X ray: wound dehiscence at amputation site with osteomyelitis of the middle phalanx amputation stump margin This is a 49 year old female who presented with worsenin gpain on her left foot with a foul odor Left foot osteomyelitis - blood cultures are negative. Bacterial cultures are growing gram negative kayode, foot X ray showing osteomyelitis at middle phalanx amputation stump margin. WBC has come down to 12.1 - wound cultures are growing gram negative rods. ID was consulted, patient was switched to IV vancomycin and meropenem given prior Pantoea bacteremia on 04/04. Goal to transition to daptomycin and ertapenem on discharge per ID - general surgery has been consulted Diarrhea - possibly from antibiotics vs IBS - C diff, stool cultures and ova and parasite negative - will order imodium prn Chest pain - likely from GERD - EKG unremarkable. Troponin negative x 1 - resolved CKD - creatinine 1.1, stable Anemia -HB stable at 9.6 - ferritin normal, TIBC, iron sat and transferrin are low Dispo: pending surgery consult Code status: full code
[2020-04-17] MEDS: Insulin Glargine 30 UNITS in Pre-Filled Syringe 1 EACH SC SCH (20:59)
[2020-04-18] MEDS: Morphine 4 MG/ML VIAL SLOW IVP PRN ×5 (01:42→20:11)
[2020-04-18] MEDS: HYDROcodone/Acetaminophen 5/325 mg Tablet PO PRN ×5 (01:43→20:10)
[2020-04-18] MEDS: MEROPENEM 1 GM/50 ML 1 GM in Premix Bag 1 BAG IVPB SCH ×3 (06:00→21:50)
[2020-04-18] MEDS: Insulin Glargine 60 UNITS in Pre-Filled Syringe 1 EACH SC SCH (08:32)
[2020-04-18] MEDS: Heparin 5,000 UNITS/ML VIAL SC SCH ×2 (08:32→20:11)
[2020-04-18] MEDS: Gabapentin 300 MG CAP PO SCH ×3 (08:33→20:08)
[2020-04-18] MEDS: Polyethylene Glycol 3350 17 GM Packet PO SCH (08:34)
[2020-04-18] MEDS: Vancomycin 1.5 GRAM/300 ML BAG 1.5 GM in Premix Bag 1 BAG IVPB SCH (08:40)
--- NOTE | 2020-04-18 17:33 | PDOC.HOSPP ---
- Subjective Encounter Date: 04/18/20 Encounter Time: 09:00 Subjective: F/u: osteomyelitis The patient states her foot pain has improved. She has a postop shoe but it puts too much pressure on dorsum of foot and was wondering if she can get a boot instead since that helped her previously in the past. SHe is still awaiting surgeon to see her. Wound care saw her today and stated her wound is healing Diarrhea has improved - Objective Vital Signs & Weight: Vital Signs (12 hours) Temp Pulse Resp BP BP Pulse Ox 04/18/20 15:23 97.7 F 100 18 123/66 95 04/18/20 11:52 97.9 F 93 18 103/63 98 04/18/20 07:12 97.9 F 87 18 130/60 100 Weight Admit Weight 206 lb Weight 206 lb I&O: 04/17/20 04/18/20 04/19/20 06:59 06:59 06:59 Intake Total 240 2770 Balance 240 2770 Result Diagrams: 04/17/20 04:56 04/17/20 09:42 Additional Labs: Accuchecks 04/18/20 04/18/20 04/18/20 16:24 11:46 06:04 POC Glucose 141 H 160 H 163 H 04/17/20 21:03 POC Glucose 105 H Hospitalist ROS - Review of Systems Constitutional: denies: fever, chills - Medication Medications: Active Medications Generic Name Dose Route Start Last Admin Trade Name Freq PRN Reason Stop Dose Admin Acetaminophen 650 mg 04/15/20 20:56 04/16/20 22:16 Acetaminophen 325 Mg Tab PO 650 mg Q4H PRN Administration Headache/Fever/Mild Pain (1-3) Hydrocodone Bitart/Acetaminophen 1 tab 04/15/20 20:56 04/18/20 14:59 Hydrocodone/Acetaminophen 5/325 Mg Tablet PO 1 tab Q4H PRN Administration Moderate Pain (4-6) Calcium Carbonate 1,000 mg 04/16/20 13:30 04/16/20 13:54 Calcium Carbonate 500 Mg Chewtab PO 1,000 mg Q4H PRN Administration Heartburn or Indigestion Camphor/Menthol/Eucalyptus 1 gm 04/16/20 03:41 04/16/20 04:05 Vicks Vaporub 50 Gm Jar TOP 1 applic PRN PRN Administration Chest Congestion/Secretions Gabapentin 900 mg 04/17/20 09:00 04/18/20 14:57 Gabapentin 300 Mg Cap PO 900 mg TID BOGDAN Administration Heparin Sodium (Porcine) 5,000 units 04/15/20 21:00 04/18/20 08:32 Heparin 5,000 Units/Ml Vial SC 5,000 units BID BOGDAN Administration Insulin Glargine 30 units/ 0.3 mls @ 0 mls/hr 04/15/20 21:00 04/17/20 20:59 Miscellaneous Medication SC Not Given HS BOGDAN Insulin Glargine 60 units/ 0.6 mls @ 0 mls/hr 04/16/20 09:00 04/18/20 08:32 Miscellaneous Medication SC 0.6 mls QAM BOGDAN Administration Promethazine HCl 12.5 mg/ 50.5 mls @ 202 mls/hr 04/15/20 20:56 04/16/20 15:23 Sodium Chloride IVPB 50.5 mls Q6H PRN Administration Nausea/vomiting use second Meropenem 1 gm/ Device 50 mls @ 100 mls/hr 04/16/20 22:00 04/18/20 14:59 IVPB 50 mls Q8HR BOGDAN Administration Insulin Human Lispro 0 units 04/15/20 20:55 04/17/20 18:03 Humalog 300 Units/3 Ml Vial SC 2 unit .MODERATE SLIDING SC PRN Administration Moderate Correctional Scale Morphine Sulfate 4 mg 04/15/20 21:00 04/18/20 15:55 Morphine 4 Mg/Ml Vial SLOW IVP 4 mg Q4H PRN Administration Moderate to Severe Pain (6-10) Ondansetron HCl 4 mg 04/15/20 20:56 04/16/20 17:19 Ondansetron Pf 4 Mg/2 Ml Vial IVP 4 mg Q6H PRN Administration Nausea/Vomiting use 1st Pantoprazole Sodium 40 mg 04/16/20 09:00 04/18/20 08:33 Pantoprazole 40 Mg Tab PO 40 mg DAILY BOGDAN Administration Polyethylene Glycol 17 gm 04/16/20 09:00 04/18/20 08:34 Polyethylene Glycol 3350 17 Gm Packet PO Not Given DAILY BOGDAN Senna/Docusate Sodium 2 tab 04/16/20 22:49 04/16/20 23:00 Senokot S 8.6-50 Mg Tab PO 2 tab BIDPRN PRN Administration Constipation - Exam General Appearance: NAD, awake alert Eye: anicteric sclera ENT: normocephalic atraumatic, no oropharyngeal lesions Heart: RRR Respiratory: normal chest expansion Gastrointestinal: non-distended Extremities: no edema Extremities - other findings: left foot bandaged in gauze, no discharge noted Skin: normal turgor Neurological: no weakness Hosp A/P - Plan Left foot X ray: wound dehiscence at amputation site with osteomyelitis of the middle phalanx amputation stump margin This is a 49 year old female who presented with worsenin gpain on her left foot with a foul odor Left foot osteomyelitis - blood cultures are negative. Bacterial cultures are growing gram negative kayode, foot X ray showing osteomyelitis at middle phalanx amputation stump margin. WBC has come down to 12.1. Will recheck today - wound cultures are growing E coli, Proteus Panneri and Enterobacter aerogenes - continue vanc and meropenem per ID. Goal to transition to daptomycin and er tapenem on discharge per ID - general surgery has been consulted Diarrhea - possibly from antibiotics vs IBS - C diff, stool cultures and ova and parasite negative - imodium prn Chest pain - likely from GERD - EKG unremarkable. Troponin negative x 1 - resolved CKD - creatinine 1.1, stable Anemia -HB stable at 9.6 - ferritin normal, TIBC, iron sat and transferrin are low Dispo: pending surgery consult Code status: full code
--- NOTE | 2020-04-18 17:35 | EKG ---
Test Reason : Blood Pressure : / mmHG Vent. Rate : 082 BPM Atrial Rate : 082 BPM P-R Int : 162 ms QRS Dur : 084 ms QT Int : 400 ms P-R-T Axes : 027 -25 026 degrees QTc Int : 467 ms Normal sinus rhythm Normal ECG When compared with ECG of 20-FEB-2020 19:46, No significant change was found Confirmed by DR. Maribel BENSNO ([id number]) on 04/18/2020 5:35:13 PM Referred By: BIMAL Confirmed By:DR. Maribel BENSON
[2020-04-18 18:16] LABS: Hemoglobin 10.3 g/dL (12.0-16.0); Mean Corpuscular HGB CONC 32.7 g/dL (32.0-36.0); Mean Corpuscular Hemoglobin 27.6 pg (27.0-31.0); Mean Corpuscular Volume 84.5 fL (78.0-98.0); Mean Platelet Volume 8.5 fL (7.4-10.4); Platelet Count 376 thou/uL (130-400); RBC Distribution Width 13.5 % (11.5-14.5); Red Blood Cell (RBC) Count 3.72 mill/uL (4.20-5.40); White Blood Cell (WBC) Count 12.9 thou/uL (4.8-10.8)
[2020-04-18] MEDS: Insulin Glargine 30 UNITS in Pre-Filled Syringe 1 EACH SC SCH (21:49)
[2020-04-18] MEDS: Loperamide HCl 1 MG/7.5 ML UDCUP PO PRN (22:06)
[2020-04-19] MEDS: HYDROcodone/Acetaminophen 5/325 mg Tablet PO PRN ×5 (02:48→19:35)
[2020-04-19] MEDS: Morphine 4 MG/ML VIAL SLOW IVP PRN ×4 (02:48→19:36)
[2020-04-19] MEDS: MEROPENEM 1 GM/50 ML 1 GM in Premix Bag 1 BAG IVPB SCH ×3 (05:37→22:19)
[2020-04-19 06:35] LABS: Hemoglobin 8.7 g/dL (12.0-16.0); Mean Corpuscular Hemoglobin 26.9 pg (27.0-31.0); Mean Platelet Volume 8.1 fL (7.4-10.4); Platelet Count 346 thou/uL (130-400); RBC Distribution Width 13.7 % (11.5-14.5); Red Blood Cell (RBC) Count 3.25 mill/uL (4.20-5.40); White Blood Cell (WBC) Count 10.2 thou/uL (4.8-10.8)
[2020-04-19 06:50] LABS: Anion Gap 11 mmol/L (10-20); BUN (Urea Nitrogen) 12 mg/dL (7.0-18.7); Calc. Creatinine Clearance 122 mL/min (70-130); Calcium 8.4 mg/dL (7.8-10.44); Carbon Dioxide 24 mmol/L (22-29); Chloride 106 mmol/L (98-107); Estimated GFR-MDRD 73; Glucose 121 mg/dL (70-105); Potassium 4.3 mmol/L (3.5-5.1); Sodium 137 mmol/L (136-145)
[2020-04-19] MEDS: Gabapentin 300 MG CAP PO SCH ×3 (08:40→19:34)
[2020-04-19] MEDS: Heparin 5,000 UNITS/ML VIAL SC SCH ×2 (08:46→19:36)
[2020-04-19] MEDS: Insulin Glargine 60 UNITS in Pre-Filled Syringe 1 EACH SC SCH (08:47)
[2020-04-19] MEDS: Polyethylene Glycol 3350 17 GM Packet PO SCH (08:53)
[2020-04-19 09:45] LABS: Vancomycin, Random 29.7 ug/mL (See Comment)
[2020-04-19] MEDS ORDERED: Vancomycin 1.5 GRAM/300 ML BAG 1.5 GM in Premix Bag 1 BAG IVPB SCH (10:00)
--- NOTE | 2020-04-19 15:04 | PRG ---
DATE OF SERVICE: Jeanne Olson was readmitted because of infection in her left foot. She had recently undergone amputation of her left 4th and 5th toes. I removed her 5th toe because it was the sole remaining toe and she did not want to return for another operation, did this about 2 weeks ago. She is undergoing wound care, developed a foul-smelling wound and is admitted for intravenous antibiotics. Dr. Phillips is seeing her and rearranged her antibiotics. The wound VAC has been discontinued. Normal saline wet-to-dry dressings performed. Today, her foot is evaluated. There was healthy granulation tissue and no cellulitis. The wound looks very good. There is no operative intervention required at this time. At this point, I will see her as an outpatient in 2 weeks. She is ready for discharge home once intravenous antibiotic plan and wound care arranged. She already has appointments to followup outpatient with wound care, [facility]. Job ID: [id number]
[2020-04-19] MEDS: HumaLOG 300 UNITS/3 ML VIAL SC PRN (17:10)
--- NOTE | 2020-04-19 17:40 | PDOC.HOSPP ---
- Subjective Encounter Date: 04/19/20 Subjective: Patient is doing well. She is eager to get home and pursue outpatient a ntibiotics. No complaints with the foot. - Objective Vital Signs & Weight: Vital Signs (12 hours) Temp Pulse Resp BP Pulse Ox 04/19/20 16:00 97.5 F L 90 18 141/83 H 100 04/19/20 11:49 97.8 F 84 18 127/67 99 04/19/20 07:41 98.0 F 90 18 123/69 100 Weight Admit Weight 206 lb Weight 206 lb I&O: 04/18/20 04/19/20 04/20/20 06:59 06:59 06:59 Intake Total 2770 950 Balance 2770 950 Result Diagrams: 04/19/20 06:15 04/19/20 09:15 Additional Labs: Accuchecks 04/19/20 04/19/20 04/19/20 17:09 12:18 06:47 POC Glucose 160 H 83 102 H 04/18/20 21:54 POC Glucose 178 H Hospitalist ROS - Medication Medications: Active Medications Generic Name Dose Route Start Last Admin Trade Name Freq PRN Reason Stop Dose Admin Acetaminophen 650 mg 04/15/20 20:56 04/16/20 22:16 Acetaminophen 325 Mg Tab PO 650 mg Q4H PRN Administration Headache/Fever/Mild Pain (1-3) Hydrocodone Bitart/Acetaminophen 1 tab 04/15/20 20:56 04/19/20 16:01 Hydrocodone/Acetaminophen 5/325 Mg Tablet PO 1 tab Q4H PRN Administration Moderate Pain (4-6) Calcium Carbonate 1,000 mg 04/16/20 13:30 04/16/20 13:54 Calcium Carbonate 500 Mg Chewtab PO 1,000 mg Q4H PRN Administration Heartburn or Indigestion Camphor/Menthol/Eucalyptus 1 gm 04/16/20 03:41 04/16/20 04:05 Vicks Vaporub 50 Gm Jar TOP 1 applic PRN PRN Administration Chest Congestion/Secretions Gabapentin 900 mg 04/17/20 09:00 04/19/20 15:55 Gabapentin 300 Mg Cap PO 900 mg TID BOGDAN Administration Heparin Sodium (Porcine) 5,000 units 04/15/20 21:00 04/19/20 08:46 Heparin 5,000 Units/Ml Vial SC 5,000 units BID BOGDAN Administration Insulin Glargine 30 units/ 0.3 mls @ 0 mls/hr 04/15/20 21:00 04/18/20 21:49 Miscellaneous Medication SC 0.3 mls HS BOGDAN Administration Insulin Glargine 60 units/ 0.6 mls @ 0 mls/hr 04/16/20 09:00 04/19/20 08:47 Miscellaneous Medication SC 0.6 mls QAM BOGDAN Administration Promethazine HCl 12.5 mg/ 50.5 mls @ 202 mls/hr 04/15/20 20:56 04/16/20 15:23 Sodium Chloride IVPB 50.5 mls Q6H PRN Administration Nausea/vomiting use second Meropenem 1 gm/ Device 50 mls @ 100 mls/hr 04/16/20 22:00 04/19/20 15:55 IVPB 50 mls Q8HR BOGDAN Administration Insulin Human Lispro 0 units 04/15/20 20:55 04/19/20 17:10 Humalog 300 Units/3 Ml Vial SC 2 unit .MODERATE SLIDING SC PRN Administration Moderate Correctional Scale Loperamide HCl 1 mg 04/17/20 22:37 04/18/20 22:06 Loperamide Hcl 1 Mg/7.5 Ml Udcup PO 1 mg Q4H PRN Administration Diarrhea/Loose Stools Morphine Sulfate 4 mg 04/15/20 21:00 04/19/20 12:06 Morphine 4 Mg/Ml Vial SLOW IVP 4 mg Q4H PRN Administration Moderate to Severe Pain (6-10) Ondansetron HCl 4 mg 04/15/20 20:56 04/16/20 17:19 Ondansetron Pf 4 Mg/2 Ml Vial IVP 4 mg Q6H PRN Administration Nausea/Vomiting use 1st Pantoprazole Sodium 40 mg 04/16/20 09:00 04/19/20 08:45 Pantoprazole 40 Mg Tab PO 40 mg DAILY BOGDAN Administration Polyethylene Glycol 17 gm 04/16/20 09:00 04/19/20 08:53 Polyethylene Glycol 3350 17 Gm Packet PO Not Given DAILY BOGDAN Senna/Docusate Sodium 2 tab 04/16/20 22:49 04/16/20 23:00 Senokot S 8.6-50 Mg Tab PO 2 tab BIDPRN PRN Administration Constipation - Exam General Appearance: NAD, awake alert Heart: RRR, no murmur, no gallops, no rubs, normal peripheral pulses Respiratory: CTAB, no wheezes, no rales, no ronchi, normal chest expansion, no tachypnea, normal percussion Gastrointestinal: soft, non-tender, non-distended, normal bowel sounds, no palpable masses, no hepatomegaly, no splenomegaly, no bruit Extremities: no cyanosis, no clubbing, no edema Extremities - other findings: Foot is wrapped with Arnulfo. Musculoskeletal: normal tone Psychiatric: normal affect, normal behavior, A&O x 3 Hosp A/P (1) Osteomyelitis of left foot Code(s): M86.9 - OSTEOMYELITIS, UNSPECIFIED Status: Chronic (2) CKD (chronic kidney disease) stage 3, GFR 30-59 ml/min Code(s): N18.3 - CHRONIC KIDNEY DISEASE, STAGE 3 (MODERATE) * DO NOT USE * Status: Chronic (3) DM (diabetes mellitus), type 2, uncontrolled Code(s): E11.65 - TYPE 2 DIABETES MELLITUS WITH HYPERGLYCEMIA Status: Chronic Qualifiers: Glycemic state: with hypoglycemia (4) Diabetic neuropathy Code(s): E11.40 - TYPE 2 DIABETES MELLITUS WITH DIABETIC NEUROPATHY, UNSP Status: Chronic Qualifiers: Diabetes mellitus type: type 2 (5) HTN (hypertension) Code(s): I10 - ESSENTIAL (PRIMARY) HYPERTENSION Status: Chronic Qualifiers: (6) Diarrhea Code(s): R19.7 - DIARRHEA, UNSPECIFIED Status: Acute (7) Chest pain Code(s): R07.9 - CHEST PAIN, UNSPECIFIED Status: Acute - Plan Osteomyelitis left foot: Discussed with surgery. May only be postoperative changes. ID has made some recommendations on IV antibiotics. Will anticipate getting those set up for outpatient treatment as early as tomorrow. Continue them in the hospital in the meantime. Diabetes mellitus: Excellent blood sugar control. No change. CKD stage III: GFR is actually better than her baseline at 71 today. Chest pain: Resolved atypical. Negative work-up. Diarrhea: Resolved. Disposition: Anticipate discharge in the morning with outpatient IV antibiotics.
[2020-04-19] MEDS: Insulin Glargine 30 UNITS in Pre-Filled Syringe 1 EACH SC SCH (22:06)
[2020-04-20] MEDS: Loperamide HCl 1 MG/7.5 ML UDCUP PO PRN (01:07)
[2020-04-20] MEDS: HYDROcodone/Acetaminophen 5/325 mg Tablet PO PRN ×4 (01:07→13:46)
[2020-04-20] MEDS: Morphine 4 MG/ML VIAL SLOW IVP PRN ×4 (01:08→13:45)
[2020-04-20] MEDS: MEROPENEM 1 GM/50 ML 1 GM in Premix Bag 1 BAG IVPB SCH ×2 (05:18→13:47)
[2020-04-20] MEDS: Senokot S 8.6-50 MG TAB PO PRN (09:12)
[2020-04-20] MEDS: Gabapentin 300 MG CAP PO SCH ×2 (09:14→15:33)
[2020-04-20] MEDS: Heparin 5,000 UNITS/ML VIAL SC SCH (09:14)
[2020-04-20] MEDS: Insulin Glargine 60 UNITS in Pre-Filled Syringe 1 EACH SC SCH (09:15)
[2020-04-20] MEDS: Polyethylene Glycol 3350 17 GM Packet PO SCH (09:18)
[2020-04-20 10:28] LABS: Vancomycin, Random 18.5 ug/mL (See Comment)
[2020-04-20] MEDS ORDERED: Vancomycin 1.5 GRAM/300 ML BAG 1.5 GM in Premix Bag 1 BAG IVPB SCH ×2 (11:00→12:00)
[2020-04-20 16:16] VITALS: BP 149/85; TEMP 97.7
--- NOTE | 2020-04-20 21:09 | DIS ---
DATE OF ADMISSION: 04/15/2020 DATE OF DISCHARGE: 04/20/2020 DISCHARGE DIAGNOSES: 1. Osteomyelitis of the left foot, acute on chronic with methicillin-resistant Staphylococcus aureus and group B streptococcal species with recurrent ulcerations. 2. Diabetes mellitus type 2 with peripheral neuropathy and chronic kidney disease stage 3. 3. Hypertension, stable. 4. Chronic normocytic anemia. CONSULTATIONS: 1. Dr. David Phillips with Infectious Disease Service. 2. Dr. Vega with General Surgery Service. PERTINENT LABORATORY AND X-RAY FINDINGS: Creatinine ranged between 0.84 to 1.19, estimated GFR ranged between 49 to 73. Magnesium level 1.9. Serum iron level 10, ferritin 185. CBC showed a white blood cell count ranged between 10.2 to 20.3, hemoglobin ranged between 8.7 to 11.2. COVID-19 PCR not detected, 04/15/2020. Left foot wound culture dated 04/15/2020, showed E coli, Proteus and Enterobacter aerogenes and presumptive Pseudomonas species. Blood cultures x2 dated 04/15/2020, showed no growth at 48 hours. Clostridium difficile antigen toxin dated 04/17/2020 negative. Stool culture negative, 04/17/2020. Three views of the left foot dated 04/15/2020, showed concern for wound dehiscence over the new amputation site with osteomyelitis of the middle phalanx amputation margin. HOSPITAL COURSE: The patient was initially admitted after presenting with recurrent ulceration of the left foot in the context of known diabetic foot ulceration with osteomyelitis with transmetatarsal amputation of the right foot in the past as well as transmetatarsal amputation of the left foot. The patient previously on wound VAC therapy, receiving ciprofloxacin and daptomycin, presenting with malodorous ulceration of the left foot. The patient was admitted for recurrent osteomyelitis of the left foot and initially placed on vancomycin, Unasyn, and Levaquin. The patient underwent wound care evaluation with Infectious Disease consultation. Due to the patient's polymicrobial specimen and prior history of MRSA and group B streptococcal species, the patient was transitioned to meropenem and vancomycin. The patient received local wound care with overall granulation tissue noted on the left foot wound. Recommendations are to transition to Invanz 1 g daily with daptomycin 500 mg IV daily until 05/29/2020. The patient overall remained clinically stable during the hospital course without recurrent fever. I have examined the patient at the time of discharge and discussed followup instructions. The patient verbalizes understanding and agreement, ready for discharge on 04/20/2020. DISCHARGE MEDICATIONS: 1. Invanz 1 g IV q.24 hours until 05/29/2020. 2. Daptomycin 500 mg IV daily until 05/29/2020. 3. Humulin 70/30 of 60 units subcutaneously q.a.m. and 40 units subcutaneously at bedtime. 4. Gabapentin 900 mg p.o. t.i.d. 5. Tramadol 50 mg p.o. t.i.d. p.r.n. pain. FOLLOWUP: The patient will follow up with her primary care provider, Jeanne Bonner. The patient will follow up with Dr. David Phillips with Infectious Disease Service. The patient will follow up with Dr. Gigi Vega with General Surgery Service. CONDITION ON DISCHARGE: Stable. ACTIVITY: Ad-sherly. DIET: ADA and heart healthy. CODE STATUS: Full. SPECIAL INSTRUCTIONS: The patient will follow up with Outpatient Infusion Services at [facility]. The patient will follow up with Outpatient Wound Care Services. Code status is full. DISPOSITION: To home, 04/20/2020. TIME SPENT: Total time preparing and coordinating discharge is 35 minutes. Job ID: [id number]
== END 2020-04-20 16:42 | disposition home or self-care (01) | DRG 564 ==
LOC: ERS 16:00 → SURG A 20:04
PROVIDERS: ADMIT Internal Medicine; ATTEND Internal Medicine
DX: T87.44 Infection of amputation stump, left lower extremity (principal); A41.02 Sepsis due to Methicillin resistant Staphylococcus aureus; A40.1 Sepsis due to streptococcus, group B; M86.172 Other acute osteomyelitis, left ankle and foot; L03.116 Cellulitis of left lower limb; M86.672 Other chronic osteomyelitis, left ankle and foot; T87.81 Dehiscence of amputation stump; E11.69 Type 2 diabetes mellitus with other specified complication; E11.51 Type 2 diabetes mellitus with diabetic peripheral angiopathy without gangrene; N18.30 Chronic kidney disease, stage 3 unspecified; I12.9 Hypertensive chronic kidney disease with stage 1 through stage 4 chronic kidney disease, or unspecified chronic kidney disease; E11.22 Type 2 diabetes mellitus with diabetic chronic kidney disease; D63.1 Anemia in chronic kidney disease; Z20.828 Contact with and (suspected) exposure to other viral communicable diseases; E11.621 Type 2 diabetes mellitus with foot ulcer; L97.529 Non-pressure chronic ulcer of other part of left foot with unspecified severity; Y83.5 Amputation of limb(s) as the cause of abnormal reaction of the patient, or of later complication, without mention of misadventure at the time of the procedure; K21.9 Gastro-esophageal reflux disease without esophagitis; R07.89 Other chest pain; R19.7 Diarrhea, unspecified; Z23 Encounter for immunization; Z89.421 Acquired absence of other right toe(s); Z91.041 Radiographic dye allergy status; Z79.899 Other long term (current) drug therapy
CPT/HCPCS: 36415; 36416; 71045; 80048; 80053; 80202; 81001; 82565; 82728; 83540; 83550; 83605; 83630; 83735; 84484; 85025; 85027; 85379; 87040; 87045; 87046; 87070; 87077; 87186; 87205; 87324; 87328; 87329; 87427; 87449; 87635; 90471; 90662; 93005; 93010; 96365; 96375; G0008; J0295; J0692; J1644; J1815; J1956; J2185; J2270; J2405; J2550; J3370; J3475; J3490; U0003

== ENCOUNTER 2020-08-01 03:39 | Emergency (ER) | payer SELFPAY ==
[2020-08-01 04:52] LABS: #Basophils 0.1 thou/uL (0.0-0.2); #Eosinphils 0.3 thou/uL (0.0-0.7); #Lymphocytes 4.5 thou/uL (1.20-3.40); #Monocytes 0.7 thou/uL (0.11-0.59); %Basophils 0.6 % (0.0-1.0); %Eosinophils 2.6 % (0.0-10.0); %Lymphocytes 35.5 % (21.0-51.0); %Monocytes 5.3 % (0.0-10.0); %Neutrophils 56.1 % (42.0-75.0); Mean Corpuscular Hemoglobin 26.2 pg (27.0-31.0); Mean Corpuscular Volume 81.9 fL (78.0-98.0); Mean Platelet Volume 9.3 fL (7.4-10.4); Platelet Count 259 thou/uL (130-400); RBC Distribution Width 14.9 % (11.5-14.5); Red Blood Cell (RBC) Count 4.21 mill/uL (4.20-5.40); White Blood Cell (WBC) Count 12.5 thou/uL (4.8-10.8)
[2020-08-01] MEDS ORDERED: Ketorolac Tromethamine 30 MG/ML VIAL ONE (05:07)
[2020-08-01 05:13] LABS: Anion Gap 14 mmol/L (10-20); BUN (Urea Nitrogen) 25 mg/dL (7.0-18.7); Calc. Creatinine Clearance 0 mL/min (70-130); Calcium 8.8 mg/dL (7.8-10.44); Carbon Dioxide 28 mmol/L (22-29); Chloride 96 mmol/L (98-107); Glucose 490 mg/dL (70-105); Potassium 4.3 mmol/L (3.5-5.1); Sodium 134 mmol/L (136-145)
[2020-08-01] MEDS ORDERED: Insulin Regular 300 UNITS/3 ML VIAL ONE (05:47)
--- NOTE | 2020-08-01 08:39 | RAD ---
LEFT FOOT 3 VIEWS: Date: 08/01/2020 HISTORY: Pain, swelling. Prior surgeries. FINDINGS: Status post amputation changes of the first through fifth metatarsals. Fairly exuberant callus format ion noted distally involving the third, fourth, and fifth metatarsal shafts at the area of prior rese ction. The possibility of coexistent osteomyelitis involving the distal third, fourth, and fifth meta tarsals is certainly a strong concern. Asymmetric prominent soft tissue swelling. IMPRESSION: 1. Status post amputation changes. 2. Abnormal callus formation at the distal third, fourth, and fifth metatarsals with an appearance w hich certainly could be consistent with osteomyelitis. 3. Asymmetric abnormal soft tissue swelling. 4. Visualized midfoot and hindfoot appear stable. POS: OFF
== END 2020-08-01 07:16 | disposition home or self-care (01) ==
LOC: ERS 03:39
DX: L03.116 Cellulitis of left lower limb (principal); E11.40 Type 2 diabetes mellitus with diabetic neuropathy, unspecified; F17.210 Nicotine dependence, cigarettes, uncomplicated; Z79.4 Long term (current) use of insulin; Z79.899 Other long term (current) drug therapy
CPT/HCPCS: 36416; 80048; 85025; 96374; 96375; J1815; J1885

== ENCOUNTER 2020-08-01 20:04 | Inpatient (IN) | payer SELFPAY ==
[2020-08-01] MEDS ORDERED: Morphine 4 MG/ML VIAL ONE ×2 (21:30→22:59)
[2020-08-01 21:39] LABS: #Basophils 0.1 thou/uL (0.0-0.2); #Eosinphils 0.3 thou/uL (0.0-0.7); #Lymphocytes 3.3 thou/uL (1.20-3.40); #Monocytes 0.5 thou/uL (0.11-0.59); #Neutrophils 7.7 thou/uL (1.40-6.50); %Basophils 0.5 % (0.0-1.0); %Eosinophils 2.2 % (0.0-10.0); %Lymphocytes 27.6 % (21.0-51.0); %Monocytes 4.4 % (0.0-10.0); %Neutrophils 65.3 % (42.0-75.0); Hemoglobin 11.1 g/dL (12.0-16.0); Mean Corpuscular HGB CONC 32.1 g/dL (32.0-36.0); Mean Platelet Volume 9.1 fL (7.4-10.4); Platelet Count 242 thou/uL (130-400); RBC Distribution Width 14.9 % (11.5-14.5); Red Blood Cell (RBC) Count 4.11 mill/uL (4.20-5.40); White Blood Cell (WBC) Count 11.8 thou/uL (4.8-10.8)
[2020-08-01] MEDS ORDERED: Cefepime 2 GM VIAL ONE (21:48)
[2020-08-01] MEDS ORDERED: VANCOMYCIN 1.75 GM/350 ML BAG 1.75 GM in Premix Bag 1 BAG IVPB SCH (22:00)
[2020-08-01 22:05] LABS: ALT (SGPT) 11 U/L (8-55); AST (SGOT) 10 U/L (5-34); Albumin 3.4 g/dL (3.5-5.0); Alkaline Phosphatase 122 U/L (40-110); Anion Gap 14 mmol/L (10-20); BUN (Urea Nitrogen) 29 mg/dL (7.0-18.7); Bilirubin, Total 0.3 mg/dL (0.2-1.2); CRP (Inflammatory) 4.56 mg/dL (= or < 0.5); Calc. Creatinine Clearance 0 mL/min (70-130); Calcium 8.8 mg/dL (7.8-10.44); Carbon Dioxide 23 mmol/L (22-29); Chloride 102 mmol/L (98-107); Globulin 4.5 g/dL (2.4-3.5); Glucose 479 mg/dL (70-105); Potassium 4.4 mmol/L (3.5-5.1); Protein, Total 7.9 g/dL (6.0-8.3); Sodium 135 mmol/L (136-145)
[2020-08-01] MEDS ORDERED: NPH, Human Insulin Isophane 300 UNIT/3 ML VIAL SC SCH (22:45)
[2020-08-01] MEDS ORDERED: Gabapentin 300 MG CAP PO SCH (22:45)
[2020-08-01] MEDS ORDERED: HumaLOG 300 UNITS/3 ML VIAL SC PRN (23:27)
[2020-08-01] MEDS ORDERED: Dextrose 50% Abboject 50 ML SYRINGE SLOW IVP PRN (23:27)
[2020-08-01] MEDS ORDERED: Dextrose 5% in Water 1,000 ML IV PRN (23:27)
[2020-08-01] MEDS ORDERED: Acetaminophen 325 MG TAB PO PRN (23:31)
[2020-08-01] MEDS ORDERED: Sodium Chloride 0.9% 1,000 ML IV SCH ×2 (23:45)
--- NOTE | 2020-08-02 00:01 | PDOC.HHP ---
Hospitalist HPI - History of Present Illness Left foot pain and swelling History of Present Illness: The patient is a 42-year-old female with a history of pedal osteomyelitis of the left foot and DM2 on insulin that presents to the emergency department for the above complaint. The patient underwent partial left foot amputation with Dr. Vega in March of 2020 for osteomyelitis. Subsequently, she was discharged with wound care therapy and a wound VAC. At some point, the wound VAC was discontinued and the patient was followed with wound care therapy once a week. The patient reports that she was doing fairly well, until her doctor saw visible bone and had to restart the wound VAC. Since, the wound has not healed as well as she would have hoped. She reports over the past 2 days, increased pain swelling and redness to the affected extremity. She has chronic neuropathy in the foot and reports that this pain is much different and more intense. She denies any fever or chills. She denies any abdominal pain, nausea, vomiting or diarrhea. She has no other complaints at this time. ED Course: Presented with normal BP, HR, RR, SPO2, afebrile. WBCs 11.8, ESR 96, CRP 4.56 Glucose 479 X-ray left foot concern for osteomyelitis of the third fourth and fifth metatar sals. Medications: Vancomycin Cefepime Gabapentin NPH 25 units Morphine Hospitalist ROS - Review of Systems Constitutional: denies: fever, chills Respiratory: denies: cough, shortness of breath, hemoptysis Cardiovascular: denies: chest pain, palpitations, light headedness Gastrointestinal: denies: nausea, vomiting, abdominal pain, diarrhea, constipation, melena, hematochezia Genitourinary: denies: dysuria, hematuria Musculoskeletal: reports: foot pain (Swelling and erythema) Neurological: reports: numbness (Chronic neuropathy). denies: weakness All other systems reviewed; all pertinent +/- noted in HPI/Subj - Medication Medications: 1. Gabapentin 900 mg p.o. 3 times daily 2. Novolin 7030: 60 units SC in the a.m. 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 negative: ill appearing Eye: anicteric sclera ENT: normocephalic atraumatic Neck: supple, no lymphadenopathy Heart: RRR, no murmur, no gallops, no rubs, normal peripheral pulses Respiratory: CTAB, no wheezes, no rales, no ronchi, normal chest expansion Gastrointestinal: soft, non-tender, non-distended, normal bowel sounds, no gua rding, no rigidity Extremities - other findings: L forefoot amp, denuded skin, soft tissue swelling, open purulent drainage Neurological: no focal deficits Musculoskeletal: normal tone, normal strength Psychiatric: normal affect, A&O x 3 Hospitalist Results - Labs Result Diagrams: 08/01/20 21:08/01/20 21:21 Lab results: WBC 11.8 thou/uL (4.8-10.8) H 08/01/20 21: Hgb 11.1 g/dL (12.0-16.0) L 08/01/20 21: Hct 34.5 % (36.0-47.0) L 08/01/20 21: MCV 84.0 fL (78.0-98.0) 08/01/20 21: Plt Count 242 thou/uL (130-400) 08/01/20 21: Neutrophils % 65.3 % (42.0-75.0) 08/01/20 21: ESR Westergren 96 mm/hr (Less than 20) H 08/01/20 21:21 Sodium 135 mmol/L (136-145) L 08/01/20 21:21 Potassium 4.4 mmol/L (3.5-5.1) 08/01/20 21: Chloride 102 mmol/L (98-107) 08/01/20 21: Carbon Dioxide 23 mmol/L (22-29) 08/01/20 21: BUN 29 mg/dL (7.0-18.7) H 08/01/20 21:21 Creatinine 1.52 mg/dL (0.6-1.1) H 08/01/20 21:21 Glucose 479 mg/dL (70-105) H 08/01/20 21:21 Calcium 8.8 mg/dL (7.8-10.44) 08/01/20 21:21 Total Bilirubin 0.3 mg/dL (0.2-1.2) 08/01/20 21:21 AST 10 U/L (5-34) 08/01/20 21:21 ALT 11 U/L (8-55) 08/01/20 21:21 Alkaline Phosphatase 122 U/L (40-110) H 08/01/20 21:21 C-Reactive Protein 4.56 mg/dL (= or < 0.5) H 08/01/20 21:21 Serum Total Protein 7.9 g/dL (6.0-8.3) 08/01/20 21:21 Albumin 3.4 g/dL (3.5-5.0) L 08/01/20 21:21 - Radiology Interpretation Other Status: report reviewed by me Additional Comment: XR left foot Concern for Osteomyelitis of 3rd-5th metatarsals. Hospitalist H&P A/P - Problem (1) Osteomyelitis of left foot Code(s): M86.9 - OSTEOMYELITIS, UNSPECIFIED Status: Acute (2) STEPH (acute kidney injury) Code(s): N17.9 - ACUTE KIDNEY FAILURE, UNSPECIFIED Status: Acute (3) DM2 (diabetes mellitus, type 2) Status: Chronic Qualifiers: Diabetes mellitus roasterman insulin use: with penitentiary use Diabetes me llitus complication status: with skin complications Diabetes mellitus com plication detail: with foot ulcer Qualified Code(s): E11.621 - Type 2 diabetes mellitus with foot ulcer; L97.509 - Non-pressure chronic ulcer of other part of unspecified foot with unspecified severity; Z79.4 - [facility] (current) use of insulin (4) Peripheral neuropathy Code(s): G62.9 - POLYNEUROPATHY, UNSPECIFIED Status: Chronic (5) Morbid obesity with BMI of 40.0-44.9, adult Code(s): E66.01 - MORBID (SEVERE) OBESITY DUE TO EXCESS CALORIES; Z68.41 - BODY MASS INDEX [BMI]40.0-44.9, ADULT Status: Chronic - Plan Plan: A patient with uncontrolled diabetes on insulin presents for recurrent osteomyelitis of the left foot. XR left foot concern of osteomyelitis third through fifth metatarsals. #Osteomyelitis of the left foot Underwent left forefoot amputation by Dr. Vega on 03/27. Outpatient WCT with wound VAC therapy-failure. WBC 11.8, ESR 96, CRP 4.56 Continue vancomycin and cefepime Consult general surgery. Will defer further imaging to general sx. N.p.o. Consult PT/OT and WCT Blood cultures pending #STEPH Presented creatinine 1.56, was 1.08 Presented GFR 37, was 54 Gentle IV fluid hydration Recheck level in a.m. #DM2 Insulin-dependent, uncontrolled. Presented BG 479 Restart home dose Novolin 70/30 -60 units a.m./40 units p.m. Aggressive sliding scale Accu-Cheks AC at bedtime. #Peripheral neuropathy Restart home dose gabapentin #Morbid obesity with BMI of 4040 4.9, adult No SCDs or Lovenox for DVT prophylaxis. Pepcid for GI prophylaxis. CODE STATUS full code. Discussed the case with attending physician, Dr. Lester, who agrees with plan of care.
[2020-08-02 00:59] VITALS: BMI 36.4
[2020-08-02] MEDS: traMADol HCl 50 MG TAB PO PRN ×3 (01:09→23:59)
[2020-08-02 01:23] LABS: Bacteria/HPF None Seen HPF (None Seen); Bilirubin Negative (Negative); Blood, Urine Negative (Negative); Calcium Oxalate Crystals 3+ HPF (None Seen); Clarity Turbid (Clear); Glucose, Urine (Dipstick) Greater than 1000 mg/dL (Negative); Ketone, Urine Negative (Negative); Leukocyte 75 Leu/uL (Negative); Nitrite Negative (Negative); Protein, Urine (Dipstick) 50 mg/dL (Neg-Trace); RBC/HPF 0-3 HPF (0-3); Specific Gravity, Urine 1.035 (1.002-1.036)
[2020-08-02 05:58] LABS: #Eosinphils 0.3 thou/uL (0.0-0.7); #Lymphocytes 4.2 thou/uL (1.20-3.40); #Monocytes 0.7 thou/uL (0.11-0.59); #Neutrophils 5.8 thou/uL (1.40-6.50); %Basophils 0.4 % (0.0-1.0); %Lymphocytes 38.3 % (21.0-51.0); %Neutrophils 52.2 % (42.0-75.0); Hemoglobin 10.5 g/dL (12.0-16.0); Mean Corpuscular HGB CONC 33.1 g/dL (32.0-36.0); Mean Corpuscular Hemoglobin 27.3 pg (27.0-31.0); Mean Corpuscular Volume 82.6 fL (78.0-98.0); Mean Platelet Volume 9.1 fL (7.4-10.4); Platelet Count 221 thou/uL (130-400); RBC Distribution Width 14.6 % (11.5-14.5); Red Blood Cell (RBC) Count 3.84 mill/uL (4.20-5.40)
[2020-08-02 06:29] LABS: Anion Gap 11 mmol/L (10-20); BUN (Urea Nitrogen) 24 mg/dL (7.0-18.7); Calc. Creatinine Clearance 88 mL/min (70-130); Calcium 8.3 mg/dL (7.8-10.44); Carbon Dioxide 24 mmol/L (22-29); Chloride 102 mmol/L (98-107); Glucose 291 mg/dL (70-105); Sodium 133 mmol/L (136-145)
[2020-08-02] MEDS: HumaLOG 300 UNITS/3 ML VIAL SC PRN (06:38)
[2020-08-02 07:20] LABS: SARS-CoV-2 PCR by NAA Not Detected (NotDetected)
--- NOTE | 2020-08-02 08:03 | PDOC.HOSPP ---
- Subjective Encounter Date: 08/02/20 Encounter Time: 10:30 Subjective: Patient reports some pain from her foot. She also developed some nausea after her morning medications without being able to eat. She is n.p.o. for surgery. No other complaints. - Objective Vital Signs & Weight: Vital Signs (12 hours) Temp Pulse Resp BP Pulse Ox 08/02/20 07:55 97.8 F 70 16 101/66 97 08/02/20 04:07 97.9 F 79 16 101/63 98 08/01/20 23:31 97.3 F L 82 18 133/85 100 Weight Weight 193 lb I&O: 08/01/20 08/02/20 08/03/20 06:59 06:59 06:59 Intake Total 1005 Balance 1005 Result Diagrams: 08/02/20 05:34 08/02/20 05:34 Additional Labs: Accuchecks 08/02/20 05:52 POC Glucose 248 H Hospitalist ROS - Review of Systems Constitutional: denies: fever, chills Respiratory: denies: cough, shortness of breath Cardiovascular: denies: chest pain, palpitations Gastrointestinal: reports: nausea. denies: vomiting, abdominal pain Musculoskeletal: reports: foot pain - Medication Medications: Active Medications Generic Name Dose Route Start Last Admin Trade Name Freq PRN Reason Stop Dose Admin Sodium Chloride 1,000 mls @ 75 mls/hr 08/01/20 23:45 08/02/20 01:10 Normal Saline 0.9% IV 08/02/20 13:04 1,000 mls .[id number] BOGDAN Administration Insulin Human Lispro 0 units 08/01/20 23:27 08/02/20 06:38 Humalog 300 Units/3 Ml Vial SC 6 unit .AGGRESSIVE SLIDING PRN Administration Aggressive Correctional Scale Tramadol HCl 50 mg 08/01/20 23:27 08/02/20 01:09 Tramadol Hcl 50 Mg Tab PO 50 mg TID PRN Administration Moderate Pain (4-6) Hospitalist Exam Vitals: Vital Signs (12 hours) Temp Pulse Resp BP Pulse Ox 08/02/20 07:55 97.8 F 70 16 101/66 97 08/02/20 04:07 97.9 F 79 16 101/63 98 08/01/20 23:31 97.3 F L 82 18 133/85 100 Weight Weight 193 lb General Appearance: NAD, awake alert ENT: moist mucosa Heart: RRR, no murmur, no gallops, no rubs Respiratory: CTAB, no wheezes, no rales, no ronchi Gastrointestinal: soft, non-tender, non-distended, normal bowel sounds Psychiatric: normal affect, normal behavior, A&O x 3 Hosp A/P - Plan A patient with uncontrolled diabetes on insulin presents for recurrent osteomyelitis of the left foot. XR left foot concern of osteomyelitis third through fifth metatarsals. #Osteomyelitis of the left foot Underwent left forefoot amputation by Dr. Vega on 03/27. Outpatient WCT with wound VAC therapy-failure. WBC 11.8, ESR 96, CRP 4.56 Continue vancomycin and cefepime since 08/01/2020 Consult general surgery this JAJAr. Gary planning on surgery later today. Will defer further imaging to general sx. N.p.o. Consult PT/OT and WCT Blood cultures pending We will add as needed IV pain medicines #STEPH Presented creatinine 1.56 Resolved with gentle hydration #DM2 Insulin-dependent, uncontrolled. Presented BG 479 Restart home dose Novolin 70/30 -60 units a.m./40 units p.m. Aggressive sliding scale Accu-Cheks AC at bedtime. #Peripheral neuropathy Restart home dose gabapentin #Morbid obesity with BMI of 4040 4.9, adult No SCDs or Lovenox for DVT prophylaxis. Pepcid for GI prophylaxis. CODE STATUS full code.
[2020-08-02] MEDS: Famotidine 20 MG TAB PO SCH ×2 (08:37→20:17)
[2020-08-02] MEDS: Gabapentin 300 MG CAP PO SCH ×4 (08:38→20:17)
[2020-08-02] MEDS ORDERED: HYDROcodone/Acetaminophen 7.5/325 mg Tablet PO PRN (08:58)
[2020-08-02] MEDS ORDERED: Senokot S 8.6-50 MG TAB PO PRN (08:59)
[2020-08-02] MEDS ORDERED: FLU VACC QS2020-21(6MOS UP)/PF 60 MCG/0.5 ML SYRINGE IM ONE (09:00)
[2020-08-02] MEDS ORDERED: ePHEDrine 50 MG/ML VIAL ONE (09:47)
[2020-08-02] MEDS ORDERED: Ondansetron PF 4 MG/2 ML Vial ONE (09:47)
[2020-08-02] MEDS ORDERED: diphenhydrAMINE 50 MG/ML VIAL ONE (09:47)
[2020-08-02] MEDS ORDERED: PROPOFOL 200 MG/20 ML VIAL ONE (09:47)
[2020-08-02] MEDS: Cefepime 2 GM in Sodium Chloride 0.9% 100 ML IVPB SCH ×2 (10:35→20:18)
[2020-08-02] MEDS: Ondansetron PF 4 MG/2 ML Vial IVP PRN ×2 (10:42→15:23)
--- NOTE | 2020-08-02 10:46 | CON ---
DATE OF CONSULTATION: HISTORY OF PRESENT ILLNESS: Jeanne Olson is a 50-year-old female, well known to me. She has had a previous right second toe amputation, diabetic related, healed. She has had multiple operations in left foot accommodating a transmetatarsal amputation, last operation 04/06/2020, amputating the left 4th and 5th toes and metatarsals. Wound is left open for healing by secondary intention. The patient has been seeing Wound Care, has not followed up in my office postoperatively. She had an area in her left foot that was becoming more painful laterally. She presented to the emergency room of her own accord, undergoing x-rays of the left foot revealing abnormal callus formation distal 3rd, 4th, and 5th metatarsals with appearance of certainly changes of osteomyelitis. She is admitted to the Hospitalist Service, placed on intravenous antibiotics vancomycin and cefepime. I have been asked to see her. She is COVID negative, examined on 08/02/2020. She is n.p.o. On exam, she has an opening in the left lateral foot with exposed metatarsals. Plan would be to debride this, resected metatarsals, place a wound VAC, culture, place on oral antibiotics; as an outpatient later this week, could be discharged with outpatient wound care. ALLERGIES: CEFTRIAXONE. TOBACCO: None. ALCOHOL: None. HOME MEDICATIONS: 1. Tramadol. 2. Insulin. 3. Gabapentin. PAST SURGICAL HISTORY: Multiple amputations right and left foot as described above, C-sections x3, shoulder surgery. PAST MEDICAL HISTORY: Diabetes mellitus, obesity, neuropathy, neuropathic ulcers, diabetic foot problems, osteomyelitis of left foot, 4th and 5th metatarsals. FAMILY HISTORY: Otherwise, noncontributory. REVIEW OF SYSTEMS: Otherwise, noncontributory. PHYSICAL EXAMINATION: VITAL SIGNS: Height 5 feet, 1 inch, weight 193 pounds, and 36 BMI. Temperature 97.8, pulse 70, blood pressure 101/66. HEAD, EARS, EYES, NOSE, and THROAT: Unremarkable. LUNGS: Clear to auscultation. CARDIAC: Regular and rhythm without murmur or gallop. ABDOMEN: Soft, nontender. EXTREMITIES: Palpable pedal pulses. Right foot well-healed amputation from years past, second toe amputation. Left foot reveals transmetatarsal amputation with opening of granulation tissue laterally extending with a sinus tract to the area of the 4th and 5th, perhaps 3rd metatarsals planned. There is no purulent drainage. There is no redness. LABORATORY DATA: White count 11 and hemoglobin 10. Basic metabolic profile normal. BUN 24, creatinine 1.8. ASSESSMENT: Diabetic foot infection, osteomyelitis of left foot in a COVID negative patient, rapid screening. PLAN: Debridement, amputation of the 4th and 5th possibly 3rd metatarsal today. We would plan to place a wound VAC intraoperatively and would anticipate she go home on oral antibiotics with outpatient wound care with wound VAC later this week. Job ID: [id number]
[2020-08-02] MEDS: HumuLIN 70/30 (300 UNITS/3 ML VIAL) SC SCH ×2 (10:48→23:51)
[2020-08-02] MEDS: Morphine 4 MG/ML VIAL SLOW IVP PRN (12:43)
[2020-08-02] MEDS ORDERED: Promethazine HCl 25 MG/ML VIAL IM PRN ×2 (17:46→18:49)
[2020-08-02] MEDS ORDERED: Promethazine HCl 25 MG/ML VIAL SLOW IVP PRN ×2 (17:46→18:49)
[2020-08-02] MEDS ORDERED: Ondansetron HCl/PF 4 MG/2 ML Vial IVP PRN ×2 (17:46→18:49)
[2020-08-02] MEDS ORDERED: Meperidine HCl/PF 25 MG/ML VIAL SLOW IVP PRN (17:46)
[2020-08-02] MEDS ORDERED: Fentanyl 100 MCG/2 ML VIAL ONE ×2 (17:55→19:02)
[2020-08-02] MEDS ORDERED: HumuLIN 70/30 (300 UNITS/3 ML VIAL) SC SCH (21:00)
[2020-08-02] MEDS: HYDROcodone/Acetaminophen 7.5/325 mg Tablet PO PRN (21:24)
[2020-08-02] MEDS ORDERED: Vancomycin HCl 1.25 GM in Sodium Chloride 0.9% 250 ML 250 ML IVPB SCH (22:00)
[2020-08-02] MEDS: VANCOMYCIN 1.25 GM/250 ML BAG 1.25 GM in Premix Bag 1 BAG IVPB SCH (22:07)
--- NOTE | 2020-08-03 00:21 | OP ---
DATE OF PROCEDURE: 08/02/2020 PREOPERATIVE DIAGNOSES: Diabetic infection, left transmetatarsal amputation stump with osteomyelitis of metatarsals 3, 4, and 5 with underlying sinus and pain. POSTOPERATIVE DIAGNOSES: Diabetic infection, left transmetatarsal amputation stump with osteomyelitis of metatarsals 3, 4, and 5 with underlying sinus and pain. PROCEDURES PERFORMED: Debridement of skin, subcutaneous tissue, soft tissue, left foot with cultures of deep tissue and resection of metatarsals 3, 4, and 5. Wound left open for healing by secondary intention. Good blood supply noted, pulsatile. ANESTHESIA: General. DESCRIPTION OF PROCEDURE: The patient was taken to the operating room, where under general anesthesia, left lower extremity was prepared with Betadine and draped in routine fashion. Incision was made in the left transmetatarsal amputation, opening the wound, dissecting the 3rd, 4th, and 5th metatarsals, resected them with a bone cutter and a rongeurs. There was good pulsatile arterial bleeding controlled with cautery. Deep cultures have been obtained. Chronic granulation tissue, sinus tract was incised sharply. Wound irrigated. Good hemostasis obtained. Normal saline wet-to-dry dressing applied wound VAC. Job ID: [id number]
[2020-08-03] MEDS: HYDROcodone/Acetaminophen 7.5/325 mg Tablet PO PRN ×3 (02:52→14:15)
[2020-08-03] MEDS: Morphine 4 MG/ML VIAL SLOW IVP PRN ×2 (04:26→10:51)
[2020-08-03] MEDS: HumaLOG 300 UNITS/3 ML VIAL SC PRN ×2 (06:20→11:54)
[2020-08-03] MEDS: Ondansetron PF 4 MG/2 ML Vial IVP PRN ×2 (06:20→15:48)
[2020-08-03] MEDS: Ondansetron ODT 4 MG TAB PO PRN (08:06)
[2020-08-03] MEDS: traMADol HCl 50 MG TAB PO PRN (08:08)
[2020-08-03] MEDS: Gabapentin 300 MG CAP PO SCH ×3 (08:09→20:47)
[2020-08-03] MEDS: Famotidine 20 MG TAB PO SCH ×2 (08:10→20:47)
[2020-08-03] MEDS ORDERED: Sodium Chloride 0.65% Nasal 44 ML BOT EA NARE PRN (08:13)
[2020-08-03] MEDS ORDERED: Loperamide HCl 2 MG CAP PO PRN (08:13)
[2020-08-03] MEDS ORDERED: HYDROcodone/Acetaminophen 5/325 mg Tablet PO PRN (08:13)
[2020-08-03] MEDS ORDERED: Benzonatate 100 MG CAP PO PRN (08:13)
[2020-08-03] MEDS ORDERED: Cepastat Lozenges 1 LOZ PO PRN (08:13)
[2020-08-03] MEDS ORDERED: GUAIFENESIN SF SOLN 200 MG/10 ML UDCUP PO PRN (08:13)
[2020-08-03] MEDS ORDERED: Calcium Carbonate 500 MG ChewTAB PO PRN (08:13)
[2020-08-03] MEDS ORDERED: Zolpidem Tartrate 5 MG TAB PO PRN (08:13)
[2020-08-03] MEDS ORDERED: Bisacodyl 5 MG TAB PO PRN (08:13)
[2020-08-03] MEDS ORDERED: Loratadine 10 MG TAB PO PRN (08:13)
[2020-08-03] MEDS ORDERED: hydrALAZINE 20 MG/ML VIAL SLOW IVP PRN (08:13)
[2020-08-03] MEDS: HumuLIN 70/30 (300 UNITS/3 ML VIAL) SC SCH ×2 (09:30→23:14)
[2020-08-03] MEDS: Cefepime 2 GM in Sodium Chloride 0.9% 100 ML IVPB SCH ×2 (09:31→20:47)
[2020-08-03] MEDS: Enoxaparin Sodium 40 MG/0.4 ML SYRINGE SC SCH (09:32)
[2020-08-03] MEDS: Saccharomyces boulardii 250 MG CAP PO SCH (09:32)
--- NOTE | 2020-08-03 11:52 | PDOC.HOSPP ---
- Subjective Encounter Date: 08/03/20 Encounter Time: 08:30 Subjective: Patient seen and examined bedside today, no overnight event, no new complaint, patient is overall doing better, - Objective Vital Signs & Weight: Vital Signs (12 hours) Temp Pulse Resp BP Pulse Ox 08/03/20 08:10 98 08/03/20 07:43 97.7 F 77 16 137/80 98 08/03/20 04:31 81 113/61 08/03/20 03:53 97.6 F 83 16 96/64 99 08/02/20 23:59 113/76 Weight Admit Weight 193 lb Weight 193 lb I&O: 08/02/20 08/03/20 08/04/20 06:59 06:59 06:59 Intake Total 1005 1125 Balance 1005 1125 Result Diagrams: 08/02/20 05:34 08/02/20 05:34 Additional Labs: Accuchecks 08/03/20 08/02/20 08/02/20 06:13 20:14 15:57 POC Glucose 387 H 162 H 137 H 08/02/20 08/02/20 12:22 10:46 POC Glucose 120 H 88 Radiology Reviewed by me: Yes EKG Reviewed by me: Yes Hospitalist ROS - Review of Systems ENT: denies: ear pain, ear discharge, nose pain, nose discharge, nose congestion, mouth pain, mouth swelling, throat pain, throat swelling, other Respiratory: denies: cough, dry, shortness of breath, hemoptysis, SOB with excertion, pleuritic pain, sputum, wheezing, other Cardiovascular: denies: chest pain, palpitations, orthopnea, paroxysmal noc. dyspnea, edema, light headedness, other Gastrointestinal: denies: nausea, vomiting, abdominal pain, diarrhea, constipation, melena, hematochezia, other Genitourinary: denies: dysuria, frequency, incontinence, hematuria, retention, other Musculoskeletal: denies: neck pain, shoulder pain, arm pain, back pain, hand pain, leg pain, foot pain, other - Medication Medications: Active Medications Generic Name Dose Route Start Last Admin Trade Name Freq PRN Reason Stop Dose Admin Acetaminophen 650 mg 08/01/20 23:31 08/02/20 23:59 Acetaminophen 325 Mg Tab PO 650 mg Q4H PRN Administration Headache/Fever/Mild Pain (1-3) Hydrocodone Bitart/Acetaminophen 2 tab 08/02/20 08:58 08/03/20 09:34 Hydrocodone/Acetaminophen 7.5/325 Mg Tablet PO 2 tab Q4H PRN Administration Moderate Pain (4-6) Enoxaparin Sodium 40 mg 08/03/20 09:00 08/03/20 09:32 Enoxaparin Sodium 40 Mg/0.4 Ml Syringe SC 40 mg 0900 BOGDAN Administration Famotidine 20 mg 08/02/20 09:00 08/03/20 08:10 Famotidine 20 Mg Tab PO 20 mg BID BOGDAN Administration Gabapentin 900 mg 08/02/20 09:00 08/03/20 08:09 Gabapentin 300 Mg Cap PO 900 mg TID [facility] Administration Cefepime HCl 2 gm/ Sodium 100 mls @ 200 mls/hr 08/02/20 09:00 08/03/20 09:31 Chloride IVPB 100 mls Q12HR BOGDAN Administration Vancomycin HCl 1.25 gm/ Device 250 mls @ 166.667 mls/hr 08/02/20 22:00 08/02/20 22:07 IVPB 250 mls Q24HR@2200 BOGDAN Administration Insulin Human Isoph/Insulin Regular 60 units 08/02/20 09:00 08/03/20 09:30 Humulin 70/30 (300 Units/3 Ml Vial) SC 60 unit QAM [facility] Administration Insulin Human Isoph/Insulin Regular 40 units 08/02/20 21:00 08/02/20 23:51 Humulin 70/30 (300 Units/3 Ml Vial) SC Not Given QPM [facility] Insulin Human Lispro 0 units 08/01/20 23:27 08/03/20 06:20 Humalog 300 Units/3 Ml Vial SC 13 unit .AGGRESSIVE SLIDING PRN Administration Aggressive Correctional Scale Morphine Sulfate 4 mg 08/02/20 10:51 08/03/20 10:51 Morphine 4 Mg/Ml Vial SLOW IVP 4 mg Q4H PRN Administration Severe Pain (7-10) Ondansetron HCl 4 mg 08/01/20 23:31 08/03/20 08:06 Ondansetron Odt 4 Mg Tab PO 4 mg Q6H PRN Administration Nausea/Vomiting Ondansetron HCl 4 mg 08/01/20 23:31 08/03/20 06:20 Ondansetron Pf 4 Mg/2 Ml Vial IVP 4 mg Q6H PRN Administration Nausea/Vomiting Saccharomyces Boulardii 250 mg 08/03/20 09:00 08/03/20 09:32 Saccharomyces Boulardii 250 Mg Cap PO 250 mg DAILY BOGDAN Administration Tramadol HCl 50 mg 08/01/20 23:27 08/03/20 08:08 Tramadol Hcl 50 Mg Tab PO 50 mg TID PRN Administration Moderate Pain (4-6) Hospitalist Exam Vitals: Vital Signs (12 hours) Temp Pulse Resp BP Pulse Ox 08/03/20 08:10 98 08/03/20 07:43 97.7 F 77 16 137/80 98 08/03/20 04:31 81 113/61 08/03/20 03:53 97.6 F 83 16 96/64 99 08/02/20 23:59 113/76 Weight Admit Weight 193 lb Weight 193 lb General Appearance: NAD, awake alert Eye: PERRL, anicteric sclera ENT: normocephalic atraumatic, no oropharyngeal lesions Neck: supple, symmetric, no JVD, no thyromegaly Heart: RRR, no murmur, no gallops, no rubs Respiratory: no wheezes, no rales, no ronchi Gastrointestinal: soft, non-tender, non-distended, normal bowel sounds Extremities: no cyanosis, no clubbing, no edema Extremities - other findings: Left foot covered with a dressing, Skin: normal turgor, no lesions Neurological: no focal deficits Musculoskeletal: normal tone, normal strength, no muscle wasting Psychiatric: normal affect, normal behavior Hosp A/P (1) Osteomyelitis of left foot Code(s): M86.9 - OSTEOMYELITIS, UNSPECIFIED Status: Acute (2) DM2 (diabetes mellitus, type 2) Status: Chronic Qualifiers: Diabetes mellitus snf insulin use: with snf use Diabetes mellitus complication status: with skin complications Diabetes mellitus complication detail: with foot ulcer Qualified Code(s): E11.621 - Type 2 diabetes mellitus with foot ulcer; L97.509 - Non-pressure chronic ulcer of other part of unspecified foot with unspecified severity; Z79.4 - senior living (current) use of insulin (3) Peripheral neuropathy Code(s): G62.9 - POLYNEUROPATHY, UNSPECIFIED Status: Chronic (4) Amputated toe of right foot Code(s): S98.131A - COMPLETE TRAUMATIC AMPUTATION OF ONE RIGHT LESSER TOE, INIT Status: Acute (5) Anemia, normocytic normochromic Code(s): D64.9 - ANEMIA, UNSPECIFIED Status: Chronic (6) CKD (chronic kidney disease) stage 3, GFR 30-59 ml/min Code(s): N18.3 - CHRONIC KIDNEY DISEASE, STAGE 3 (MODERATE) * DO NOT USE * Status: Chronic (7) DM2 (diabetes mellitus, type 2) Status: Chronic Qualifiers: Diabetes mellitus snf insulin use: with snf use Diabetes mellitus complication detail: with polyneuropathy (8) Diabetic neuropathy Code(s): E11.40 - TYPE 2 DIABETES MELLITUS WITH DIABETIC NEUROPATHY, UNSP Status: Chronic Qualifiers: Diabetes mellitus type: type 2 (9) HTN (hypertension) Code(s): I10 - ESSENTIAL (PRIMARY) HYPERTENSION Status: Chronic Qualifiers: - Plan old records reviewed/req, continue antibiotics, DVT proph w/lovenox Patient has diabetic foot infection, patient underwent debridement of skin and subcutaneous tissue of the left foot, patient had resection of metatarsal of third fourth and fifth, currently patient is on broad-spectrum antibiotic coverage, patient had deep culture sent which is pending, continue wound care, continue pain control, currently patient is on cefepime and vancomycin, discussed with general surgeon, based on his opinion patient may be able to go home on oral antibiotic therapy pending culture result, but because of her osteomyelitis on x-ray I will consult infectious disease to decide about final antibiotic therapy upon discharge, patient will need ongoing wound care after discharge as well.
--- NOTE | 2020-08-03 18:18 | PRG ---
DATE OF SERVICE: 08/03/2020 Ms. Olson is doing well today. She is having very little pain. Temperature 97.6 degrees, blood pressure 153/74. Culture swabs intraoperative revealed gram-negative rods on Gram stain, cultures pending. Wound VAC was applied today. The patient overall is doing well. Anticipate that she should be able to go home on oral antibiotics in the next day or two with her home VAC. Job ID: [id number]
[2020-08-03 21:33] LABS: Vancomycin, Trough 15.4 ug/mL
[2020-08-03] MEDS: VANCOMYCIN 1.25 GM/250 ML BAG 1.25 GM in Premix Bag 1 BAG IVPB SCH (22:42)
[2020-08-04] MEDS: HYDROcodone/Acetaminophen 7.5/325 mg Tablet PO PRN ×3 (00:38→14:16)
[2020-08-04] MEDS: Ondansetron ODT 4 MG TAB PO PRN (05:26)
[2020-08-04] MEDS: Gabapentin 300 MG CAP PO SCH ×2 (08:46→14:17)
[2020-08-04] MEDS: Saccharomyces boulardii 250 MG CAP PO SCH (08:46)
[2020-08-04] MEDS: Enoxaparin Sodium 40 MG/0.4 ML SYRINGE SC SCH (08:46)
[2020-08-04] MEDS: Famotidine 20 MG TAB PO SCH (08:46)
[2020-08-04] MEDS: Cefepime 2 GM in Sodium Chloride 0.9% 100 ML IVPB SCH (08:47)
[2020-08-04] MEDS: HumuLIN 70/30 (300 UNITS/3 ML VIAL) SC SCH (11:20)
--- NOTE | 2020-08-04 11:29 | PDOC.HOSPP ---
- Subjective Encounter Date: 08/04/20 Encounter Time: 08:00 Subjective: Patient seen and examined bedside today, no overnight event, no new complaint, - Objective Vital Signs & Weight: Vital Signs (12 hours) Temp Pulse Resp BP BP Pulse Ox 08/04/20 07:12 97.5 F L 85 16 127/81 98 08/04/20 04:33 97.6 F 82 18 138/83 100 08/04/20 00:48 97.7 F 84 16 129/82 100 Weight Admit Weight 193 lb Weight 193 lb I&O: 08/03/20 08/04/20 08/05/20 06:59 06:59 06:59 Intake Total 1125 2650 240 Balance 1125 2650 240 Result Diagrams: 08/02/20 05:34 08/02/20 05:34 Additional Labs: Accuchecks 08/04/20 08/04/20 08/04/20 08:51 06:32 01:53 POC Glucose 115 H 68 L 145 H 08/03/20 08/03/20 08/03/20 22:47 17:07 16:12 POC Glucose 171 H 140 H 90 08/03/20 11:44 POC Glucose 186 H Hospitalist ROS - Review of Systems ENT: denies: ear pain, ear discharge, nose pain, nose discharge, nose congestion, mouth pain, mouth swelling, throat pain, throat swelling, other Respiratory: denies: cough, dry, shortness of breath, hemoptysis, SOB with excertion, pleuritic pain, sputum, wheezing, other Cardiovascular: denies: chest pain, palpitations, orthopnea, paroxysmal noc. dyspnea, edema, light headedness, other Gastrointestinal: denies: nausea, vomiting, abdominal pain, diarrhea, constipation, melena, hematochezia, other Genitourinary: denies: dysuria, frequency, incontinence, hematuria, retention, other Musculoskeletal: denies: neck pain, shoulder pain, arm pain, back pain, hand pain, leg pain, foot pain, other - Medication Medications: Active Medications Generic Name Dose Route Start Last Admin Trade Name Freq PRN Reason Stop Dose Admin Acetaminophen 650 mg 08/01/20 23:31 08/02/20 23:59 Acetaminophen 325 Mg Tab PO 650 mg Q4H PRN Administration Headache/Fever/Mild Pain (1-3) Hydrocodone Bitart/Acetaminophen 2 tab 08/02/20 08:58 08/04/20 09:17 Hydrocodone/Acetaminophen 7.5/325 Mg Tablet PO 2 tab Q4H PRN Administration Moderate Pain (4-6) Enoxaparin Sodium 40 mg 08/03/20 09:00 08/04/20 08:46 Enoxaparin Sodium 40 Mg/0.4 Ml Syringe SC 40 mg 0900 BOGDAN Administration Famotidine 20 mg 08/02/20 09:00 08/04/20 08:46 Famotidine 20 Mg Tab PO 20 mg BID BOGDAN Administration Gabapentin 900 mg 08/02/20 09:00 08/04/20 08:46 Gabapentin 300 Mg Cap PO 900 mg TID BOGDAN Administration Cefepime HCl 2 gm/ Sodium 100 mls @ 200 mls/hr 08/02/20 09:00 08/04/20 08:47 Chloride IVPB 100 mls Q12HR BOGDAN Administration Vancomycin HCl 1.25 gm/ Device 250 mls @ 166.667 mls/hr 08/02/20 22:00 08/03/20 22:42 IVPB 250 mls Q24HR@2200 BOGDAN Administration Insulin Human Isoph/Insulin Regular 60 units 08/02/20 09:00 08/04/20 11:20 Humulin 70/30 (300 Units/3 Ml Vial) SC Not Given QAM [facility] Insulin Human Isoph/Insulin Regular 40 units 08/02/20 21:00 08/03/20 23:14 Humulin 70/30 (300 Units/3 Ml Vial) SC 40 unit QPM BOGDAN Administration Insulin Human Lispro 0 units 08/01/20 23:27 08/03/20 11:54 Humalog 300 Units/3 Ml Vial SC 3 unit .AGGRESSIVE SLIDING PRN Administration Aggressive Correctional Scale Loratadine 10 mg 08/03/20 08:13 08/03/20 15:51 Loratadine 10 Mg Tab PO 10 mg DAILYPRN PRN Administration Sinus Symptoms Morphine Sulfate 4 mg 08/02/20 10:51 08/03/20 10:51 Morphine 4 Mg/Ml Vial SLOW IVP 4 mg Q4H PRN Administration Severe Pain (7-10) Ondansetron HCl 4 mg 08/01/20 23:31 08/04/20 05:26 Ondansetron Odt 4 Mg Tab PO 4 mg Q6H PRN Administration Nausea/Vomiting Ondansetron HCl 4 mg 08/01/20 23:31 08/03/20 15:48 Ondansetron Pf 4 Mg/2 Ml Vial IVP 4 mg Q6H PRN Administration Nausea/Vomiting Saccharomyces Boulardii 250 mg 08/03/20 09:00 08/04/20 08:46 Saccharomyces Boulardii 250 Mg Cap PO 250 mg DAILY BOGDAN Administration Tramadol HCl 50 mg 08/01/20 23:27 08/03/20 08:08 Tramadol Hcl 50 Mg Tab PO 50 mg TID PRN Administration Moderate Pain (4-6) Hospitalist Exam Vitals: Vital Signs (12 hours) Temp Pulse Resp BP BP Pulse Ox 08/04/20 07:12 97.5 F L 85 16 127/81 98 08/04/20 04:33 97.6 F 82 18 138/83 100 08/04/20 00:48 97.7 F 84 16 129/82 100 Weight Admit Weight 193 lb Weight 193 lb General Appearance: NAD, awake alert Eye: PERRL, anicteric sclera ENT: normocephalic atraumatic, no oropharyngeal lesions Neck: supple, symmetric, no JVD, no thyromegaly Heart: RRR, no murmur, no gallops, no rubs Respiratory: CTAB, no wheezes, no rales, no ronchi Gastrointestinal: soft, non-tender, non-distended, normal bowel sounds Extremities: no cyanosis, no clubbing Extremities - other findings: Left foot with the dressing Skin: normal turgor, no lesions Neurological: no focal deficits Musculoskeletal: normal tone, normal strength, no muscle wasting Psychiatric: normal affect, normal behavior Hosp A/P (1) Osteomyelitis of left foot Code(s): M86.9 - OSTEOMYELITIS, UNSPECIFIED Status: Acute (2) DM2 (diabetes mellitus, type 2) Status: Chronic Qualifiers: Diabetes mellitus shelter insulin use: with shelter use Diabetes mellitus complication status: with skin complications Diabetes mellitus complication detail: with foot ulcer Qualified Code(s): E11.621 - Type 2 diabetes mellitus with foot ulcer; L97.509 - Non-pressure chronic ulcer of other part of unspecified foot with unspecified severity; Z79.4 - superintendent container terminal (current) use of insulin (3) Peripheral neuropathy Code(s): G62.9 - POLYNEUROPATHY, UNSPECIFIED Status: Chronic (4) Amputated toe of right foot Code(s): S98.131A - COMPLETE TRAUMATIC AMPUTATION OF ONE RIGHT LESSER TOE, INIT Status: Acute (5) Anemia, normocytic normochromic Code(s): D64.9 - ANEMIA, UNSPECIFIED Status: Chronic (6) CKD (chronic kidney disease) stage 3, GFR 30-59 ml/min Code(s): N18.3 - CHRONIC KIDNEY DISEASE, STAGE 3 (MODERATE) * DO NOT USE * Status: Chronic (7) DM2 (diabetes mellitus, type 2) Status: Chronic Qualifiers: Diabetes mellitus termite control service representative insulin use: with termite control service representative use Diabetes mellitus complication detail: with polyneuropathy (8) Diabetic neuropathy Code(s): E11.40 - TYPE 2 DIABETES MELLITUS WITH DIABETIC NEUROPATHY, UNSP Status: Chronic Qualifiers: Diabetes mellitus type: type 2 (9) HTN (hypertension) Code(s): I10 - ESSENTIAL (PRIMARY) HYPERTENSION Status: Chronic Qualifiers: - Plan old records reviewed/req, continue antibiotics, DVT proph w/lovenox Continue current IV antibiotic therapy with cefepime and vancomycin, follow-up on culture result, Discussed with ID team, recommendation pending Final antibiotic therapy based on culture result Expecting discharge based on ID recommendation. Medication reviewed and continue provide symptomatic and supportive care
[2020-08-04 11:35] VITALS: BP 109/73; TEMP 97.7
[2020-08-04 11:58] LABS: #Basophils 0.1 thou/uL (0.0-0.2); #Eosinphils 0.3 thou/uL (0.0-0.7); #Monocytes 0.5 thou/uL (0.11-0.59); #Neutrophils 5.8 thou/uL (1.40-6.50); %Basophils 0.9 % (0.0-1.0); %Eosinophils 2.8 % (0.0-10.0); %Lymphocytes 31.1 % (21.0-51.0); %Monocytes 5.3 % (0.0-10.0); %Neutrophils 59.8 % (42.0-75.0); Hemoglobin 9.8 g/dL (12.0-16.0); Mean Corpuscular HGB CONC 32.2 g/dL (32.0-36.0); Mean Corpuscular Hemoglobin 27.5 pg (27.0-31.0); Mean Corpuscular Volume 85.4 fL (78.0-98.0); Mean Platelet Volume 8.9 fL (7.4-10.4); Platelet Count 223 thou/uL (130-400); RBC Distribution Width 14.8 % (11.5-14.5); Red Blood Cell (RBC) Count 3.56 mill/uL (4.20-5.40); White Blood Cell (WBC) Count 9.7 thou/uL (4.8-10.8)
[2020-08-04 12:21] LABS: Anion Gap 11 mmol/L (10-20); BUN (Urea Nitrogen) 15 mg/dL (7.0-18.7); CRP (Inflammatory) 3.95 mg/dL (= or < 0.5); Calc. Creatinine Clearance 99 mL/min (70-130); Calcium 8.6 mg/dL (7.8-10.44); Carbon Dioxide 28 mmol/L (22-29); Chloride 102 mmol/L (98-107); Glucose 139 mg/dL (70-105); Potassium 4.7 mmol/L (3.5-5.1); Sodium 136 mmol/L (136-145)
--- NOTE | 2020-08-04 13:55 | PDOC.DS.DS ---
Provider Date of Admission: 08/01/20 22:04 Date of Discharge: 08/04/20 Admitting Provider: Los Lester MD Consultations: General Surgery, Infectious Disease Primary Care Physician: David Phillips MD Course Hospital Course: History on admission- 42-year-old female with a history of pedal osteomyelitis of the left foot and DM2 on insulin that presents to the emergency department for the above complaint. The patient underwent partial left foot amputation with Dr. Vega in March of 2020 for osteomyelitis. Subsequently, she was discharged with wound care therapy and a wound VAC. At some point, the wound VAC was discontinued and the patient was followed with wound care therapy once a week. The patient reports that she was doing fairly well, until her doctor saw visible bone and had to restart the wound VAC. Since, the wound has not healed as well as she would have hoped. She reports over the past 2 days, increased pain swelling and redness to the affected extremity. She has chronic neuropathy in the foot and reports that this pain is much different and more intense. She denies any fever or chills. She denies any abdominal pain, nausea, vomiting or diarrhea. She has no other complaints at this time. On admission she had a foot x-ray which was consistent with osteomyelitis but when we discussed with the Dr. Phillips he recommended that because of her she had several surgeries in the past, based on x-ray finding osteomyelitis diagnosis unlikely, patient underwent surgical debridement by Dr. Vega, patient had debridement of skin, subcutaneous tissue, soft tissue, left foot with a culture of deep tissue and resection of metatarsal of third fourth and fifth was done, wound left open for healing by secondary intention, patient had good flow and the wound appeared clear, Next day general surgery cleared her for discharge, ID team saw and cleared for discharge, we are discharging her home on p.o. Keflex and Cipro for total 4 to 6 weeks. Patient will follow up with wound care and ID and general surgery. Resuscitation Status: 08/01/20 23:29 Resuscitation Status Routine Co-Sign Provider: Resuscitation Status: FULL: Full Resuscitation Discussed with: patient Lab Results: 08/04/20 11:49 08/04/20 11:49 Abnormal Lab Results - Last 48 hrs 08/04/20 11:49: C-Reactive Protein 3.95 H 08/04/20 11:49: RBC 3.56 L, Hgb 9.8 L, Hct 30.4 L, RDW 14.8 H Microbiology - Entire Visit 08/02/20 18:22 Foot - Tissue Bacterial Culture - Preliminary Streptococcus agalactiae Gp. B 08/02/20 18:22 Foot - Tissue Anaerobic Culture - Pending 08/01/20 21:29 Venous blood - Left Arm Blood Culture - Preliminary NO GROWTH AT 48 HOURS 08/01/20 21:21 Venous blood - Right Hand Blood Culture - Preliminary NO GROWTH AT 48 HOURS Vitals: Vital Signs (12 hours) Temp Pulse Resp BP BP Pulse Ox 08/04/20 11:29 97.7 F 81 16 109/73 98 08/04/20 07:12 97.5 F L 85 16 127/81 98 08/04/20 04:33 97.6 F 82 18 138/83 100 Weight Admit Weight 193 lb Weight 193 lb Physical Exam: The patient was seen and examined on the day of discharge. General Appearance: NAD, awake alert Eye: PERRL, anicteric sclera ENT: normocephalic atraumatic, no oropharyngeal lesions Neck: supple, symmetric, no JVD, no thyromegaly Respiratory: CTAB, no wheezes, no rales, no ronchi Cardiovascular: RRR, no murmur, no gallops, no rubs Gastrointestinal: soft, non-tender, non-distended, normal bowel sounds Extremities: no cyanosis, no clubbing Extremities - other findings: left foot with dressing Skin: normal turgor Neurological: no focal deficits Musculoskeletal: normal tone, normal strength PSYCH: normal affect, normal behavior Problem (1) Osteomyelitis of left foot Code(s): M86.9 - OSTEOMYELITIS, UNSPECIFIED Status: Acute (2) DM2 (diabetes mellitus, type 2) Status: Chronic Qualifiers: Diabetes mellitus intermediate teacher insulin use: with jail use Diabetes mellitus complication status: with skin complications Diabetes mellitus complication detail: with foot ulcer Qualified Code(s): E11.621 - Type 2 diabetes mellitus with foot ulcer; L97.509 - Non-pressure chronic ulcer of other part of unspecified foot with unspecified severity; Z79.4 - senior living (current) use of insulin (3) Peripheral neuropathy Code(s): G62.9 - POLYNEUROPATHY, UNSPECIFIED Status: Chronic (4) Amputated toe of right foot Code(s): S98.131A - COMPLETE TRAUMATIC AMPUTATION OF ONE RIGHT LESSER TOE, INIT Status: Acute (5) Anemia, normocytic normochromic Code(s): D64.9 - ANEMIA, UNSPECIFIED Status: Chronic (6) CKD (chronic kidney disease) stage 3, GFR 30-59 ml/min Code(s): N18.3 - CHRONIC KIDNEY DISEASE, STAGE 3 (MODERATE) * DO NOT USE * Status: Chronic (7) DM2 (diabetes mellitus, type 2) Status: Chronic Qualifiers: Diabetes mellitus intermediate teacher insulin use: with jail use Diabetes mellitus complication detail: with polyneuropathy (8) Diabetic neuropathy Code(s): E11.40 - TYPE 2 DIABETES MELLITUS WITH DIABETIC NEUROPATHY, UNSP St atus: Chronic Qualifiers: Diabetes mellitus type: type 2 (9) HTN (hypertension) Code(s): I10 - ESSENTIAL (PRIMARY) HYPERTENSION Status: Chronic Qualifiers: Plan Prescriptions: Cephalexin [Keflex] 500 mg PO Q6HR #120 cap Ciprofloxacin [Cipro] 500 mg PO BID #60 tab Home Medications: Medication Instructions Recorded Confirmed Type HumuLIN 70/30 [HumuLIN 70/30 Vial] 40 units SC QPM 02/06/19 08/02/20 History HumuLIN 70/30 [HumuLIN 70/30 Vial] 60 units SC QAM 02/06/19 08/02/20 History Gabapentin [Neurontin] 900 mg PO TID 08/20/19 08/02/20 History traMADol HCl [Tramadol HCl] 50 mg PO TID PRN #40 tablet 04/20/20 08/02/20 Rx Cephalexin [Keflex] 500 mg PO Q6HR #120 cap 08/04/20 Rx Ciprofloxacin [Cipro] 500 mg PO BID #60 tab 08/04/20 Rx Allergies: ceftriaxone [From Rocephin] Adverse Reaction (Intermediate, Verified 02/21/20 00:03) Rash CAUSES BLISTERING RASH TO GROIN. Yeast infection. Activity:: Activity as Tolerated Nourishment:: Diabetic Diet Therapies:: Wound Care Equipment/Supplies:: Not Applicable IV Therapy:: Not Applicable Referrals: Gigi Vega MD [Active] - 3-4 Weeks David Phillips MD [Primary Care Provider] - Disposition: HOME Quality CORE MEASURES:: N/A
--- NOTE | 2020-08-04 14:39 | CON ---
DATE OF CONSULTATION: 08/04/2020 REASON FOR CONSULTATION: Inflammatory process in the left foot transmetatarsal amputation site. HISTORY OF PRESENT ILLNESS: Ms. Oslon is a 50-year-old with multiple prior admissions, continueswith recurrent foot inflammatory process. At this time, the left foot seems to have had some issues with wound management and she developed pain and came to the hospital. There were some changes in the x-ray. I am not sure what the specificity of that is for in view of the prior interventions. It could represent just remodeling of the bone, but nonetheless, she had surgical intervention, had some I and D of granulation tissue, some distal segments of metatarsals were resected. Waiting on the pathology for that. Right now, she is doing okay and wants to go home. No headaches, visual symptoms, sore throat, odynophagia, or dysphagia. No cough, sputum production, or chest pain. No abdominal pain or diarrhea. No genitourinary symptoms. Minimal symptoms in the left foot. The right foot has healed and no issues with it at this moment. PAST MEDICAL HISTORY: 1. Type 2 diabetes. 2. Neuropathy. 3. Multiple complications in right and left feet with various amputations, mostly on the left side, now resulting in a complete transmetatarsal amputation site and she has had protracted antimicrobial therapy via PICC line. 4. She has had a kidney abscess, which required a protracted IV antimicrobial therapy with I think methicillin-sensitive Staphylococcus aureus in the past. ALLERGIES: IODINE. SOCIAL HISTORY: Lives in [place]. . Never smoker. FAMILY HISTORY: Type 2 diabetes and COVID. CURRENT MEDICATIONS: 1. Dextrose. 2. Cefepime. 3. Hydrocodone. 4. Vancomycin. 5. P.r.n. medications. 6. Insulin. PHYSICAL EXAMINATION: VITAL SIGNS: Essentially normal. She has been afebrile throughout. O2 saturations are good. SKIN: This transmetatarsal site before the surgery. There is a kind of a thin ridge across the midline of the transmetatarsal tip, but no inflammatory changes, some hyperpigmentation noted. The postoperative wound kind of a fresh wound and not much of the areas were transected. No lymphadenopathy. HEENT: Noncontributory. NECK: Supple. LUNGS: Symmetric. Clear breath sounds. HEART: S1 and S2. Regular rate. ABDOMEN: Soft, not distended or tender. No ascites. No bladder distention. EXTREMITIES: Pulses are 1+ in popliteals and 1+ in dorsalis pedis. NEUROLOGIC: Nonfocal. LABORATORY DATA: White cell count 11.8, down to 9.7, hemoglobin 9.8, and platelets 223. Creatinine 0.96. CRP 3.95, the lowest was 1.4 in June. The culture now shows group B strep. The Gram stain from the tissue, basically a few gram- negative rods. The previous microbiology had Pseudomonas aeruginosa and Chanel albicans. ASSESSMENT: 1. Type 2 diabetes. 2. Neuropathy. 3. Multiple recurrent complications in right and left feet, which resulted in the amputations as described above. Now, she comes in with a left transmetatarsal amputation site inflammatory process, had a limited I and D, and now we will transition to oral Levaquin or Cipro plus Keflex for discharge planning. She never had much of an anaerobic component to her infections in the feet. Plan to treat for a long period of time again and then keep her on a suppressive dose probably either Keflex or quinolone. Follow up in the clinic in 3 weeks. Job ID: [id number] [facility] [place]
[2020-08-04] MEDS ORDERED: Cephalexin 250 MG CAP PO SCH (18:00)
[2020-08-04] MEDS ORDERED: Ciprofloxacin 500 MG TAB PO SCH (20:00)
== END 2020-08-04 15:10 | disposition home or self-care (01) | DRG 617 ==
LOC: ERS 20:04 → SURG A 22:04
PROVIDERS: ADMIT Internal Medicine; ATTEND Internal Medicine
PROC: 0Y6N0ZC Detachment at Left Foot, Partial 3rd Ray, Open Approach (ICD-10-PCS; principal; 2020-08-02)
PROC: 0Y6N0ZD Detachment at Left Foot, Partial 4th Ray, Open Approach (ICD-10-PCS; 2020-08-02)
PROC: 0Y6N0ZF Detachment at Left Foot, Partial 5th Ray, Open Approach (ICD-10-PCS; 2020-08-02)
DX: E11.69 Type 2 diabetes mellitus with other specified complication (principal); M86.8X7 Other osteomyelitis, ankle and foot; Z20.822 Contact with and (suspected) exposure to COVID-19; E11.40 Type 2 diabetes mellitus with diabetic neuropathy, unspecified; E11.621 Type 2 diabetes mellitus with foot ulcer; L97.529 Non-pressure chronic ulcer of other part of left foot with unspecified severity; E11.42 Type 2 diabetes mellitus with diabetic polyneuropathy; D63.1 Anemia in chronic kidney disease; N18.30 Chronic kidney disease, stage 3 unspecified; E11.22 Type 2 diabetes mellitus with diabetic chronic kidney disease; I12.9 Hypertensive chronic kidney disease with stage 1 through stage 4 chronic kidney disease, or unspecified chronic kidney disease; F17.210 Nicotine dependence, cigarettes, uncomplicated; E66.01 Morbid (severe) obesity due to excess calories; E11.65 Type 2 diabetes mellitus with hyperglycemia; B96.89 Other specified bacterial agents as the cause of diseases classified elsewhere; N17.9 Acute kidney failure, unspecified; Z28.21 Immunization not carried out because of patient refusal; Z89.412 Acquired absence of left great toe; Z89.422 Acquired absence of other left toe(s); Z89.421 Acquired absence of other right toe(s); Z79.899 Other long term (current) drug therapy; Z79.4 Long term (current) use of insulin; Z83.3 Family history of diabetes mellitus; Z68.36 Body mass index [BMI] 36.0-36.9, adult; Z88.1 Allergy status to other antibiotic agents
CPT/HCPCS: 0001A; 36415; 36416; 80048; 80202; 81001; 85025; 85652; 86140; 87040; 87070; 87077; 87205; 87635; 91300; 96365; 96367; 96375; 96376; J0692; J1200; J1650; J1815; J2270; J2405; J2704; J3010; J3370; J3490; Q0162; U0003; U0005

== ENCOUNTER 2020-08-28 17:09 | Inpatient (IN) | payer SELFPAY ==
[~2020-08-28 17:09] MED LIST changes: +Heparin 1,000 UNITS/ML VIAL ONE; -Sodium Chloride 0.9% 15 ML NEB ONE
[2020-08-28 18:09] LABS: #Basophils 0.1 thou/uL (0.0-0.2); #Eosinphils 0.3 thou/uL (0.0-0.7); #Monocytes 0.6 thou/uL (0.11-0.59); #Neutrophils 8.5 thou/uL (1.40-6.50); %Basophils 0.6 % (0.0-1.0); %Eosinophils 2.7 % (0.0-10.0); %Lymphocytes 23.8 % (21.0-51.0); Hemoglobin 10.5 g/dL (12.0-16.0); Mean Corpuscular HGB CONC 32.4 g/dL (32.0-36.0); Mean Corpuscular Hemoglobin 26.3 pg (27.0-31.0); Mean Corpuscular Volume 81.3 fL (78.0-98.0); Mean Platelet Volume 8.6 fL (7.4-10.4); Platelet Count 392 thou/uL (130-400); RBC Distribution Width 13.3 % (11.5-14.5); Red Blood Cell (RBC) Count 3.98 mill/uL (4.20-5.40); White Blood Cell (WBC) Count 12.4 thou/uL (4.8-10.8)
[2020-08-28 18:28] LABS: ALT (SGPT) Less than 7 U/L (8-55); AST (SGOT) 9 U/L (5-34); Albumin 3.2 g/dL (3.5-5.0); Alkaline Phosphatase 107 U/L (40-110); Anion Gap 14 mmol/L (10-20); BUN (Urea Nitrogen) 33 mg/dL (7.0-18.7); Bilirubin, Total 0.4 mg/dL (0.2-1.2); Calc. Creatinine Clearance 0 mL/min (70-130); Carbon Dioxide 25 mmol/L (22-29); Chloride 99 mmol/L (98-107); Globulin 4.6 g/dL (2.4-3.5); Glucose 358 mg/dL (70-105); Potassium 4.6 mmol/L (3.5-5.1); Protein, Total 7.8 g/dL (6.0-8.3); Sodium 133 mmol/L (136-145)
--- NOTE | 2020-08-28 18:42 | RAD ---
LEFT FOOT THREE VIEWS: Comparison: 08-01-2020 FINDINGS: It is presumed that the patient has undergone additional amputation of the 1st, 2nd, and 3rd toes sin ce that previous examination as there is less metatarsal present, but in addition to these findings, there is bony destructive change of almost the entire residual 2nd metatarsal, very suspicious for os teomyelitis. Bony changes at the distal end of the stumps in the 1st and 3rd metatarsals could be rel ated to some osteomyelitis change in this region as it does not have the typical well defined appeara nce of a recent resection. IMPRESSION: Findings of bony destructive change of the residual portion of the 2nd metatarsal compatible with ost eomyelitis, possibly also changes involving the distal ends of the amputated portions of the 1st and 3rd metatarsals. POS: MARISOL
[2020-08-28] MEDS ORDERED: Cefepime 2 GM VIAL ONE (20:23)
[2020-08-28] MEDS ORDERED: Fentanyl 100 MCG/2 ML VIAL ONE (21:32)
[2020-08-28] MEDS ORDERED: Vancomycin 1 GM/200 ML BAG ONE (22:02)
[2020-08-28] MEDS ORDERED: Vancomycin 1 GM in Premix Bag 1 BAG IVPB SCH (23:45)
[2020-08-28] MEDS ORDERED: hydrALAZINE 20 MG/ML VIAL SLOW IVP PRN (23:53)
[2020-08-28] MEDS ORDERED: Acetaminophen 325 MG TAB PO PRN (23:55)
[2020-08-28] MEDS ORDERED: Bisacodyl 5 MG TAB PO PRN (23:55)
--- NOTE | 2020-08-29 00:02 | PDOC.HHP ---
Hospitalist HPI Left foot wound drainage History of Present Illness: 50-year-old female with past medical history of diabetes mellitus type 2, recurrent left foot digit osteomyelitis status post amputated all digits of the left foot with last one involving second metatarsal head 3 weeks ago by Podiatry -Dr Vega . Patient was noted with osteo of the MT head and started on Keflex/Cipro recommended for 6 weeks as well as a wound VAC. She states her bag with her prescriptions was stoled and she has not been able to take the Cipro and Keflex since the last 3 weeks( she only took it for 3 days post discharge]. patient is to continue to use the wound VAC until 3 days ago where she forgot to take off the wound VAC and left it on for over 24 hours. she developed worsening smell and purulent discharge from the opening of the skin ulcer. She said the smell was so bad today she vomited. She denies any fever or chills. She presented to the ED because of worsening smell and drainage as well as pain over the left foot. Foot x-ray shows extensive osteomyelitis of the metatarsal heads. She has been admitted for persistent osteomyelitis of the foot Allergies/Adverse Reactions: Allergy/AdvReac Type Severity Reaction Status Date / Time ceftriaxone [From Rocephin] AdvReac Intermediate Rash Verified 02/21/20 00:03 Home Medications: Medication Instructions Recorded Confirmed Type HumuLIN 70/30 [HumuLIN 70/30 Vial] 40 units SC QPM 02/06/19 08/02/20 History HumuLIN 70/30 [HumuLIN 70/30 Vial] 60 units SC QAM 02/06/19 08/02/20 History Gabapentin [Neurontin] 900 mg PO TID 08/20/19 08/02/20 History traMADol HCl [Tramadol HCl] 50 mg PO TID PRN #40 tablet 04/20/20 08/02/20 Rx Cephalexin [Keflex] 500 mg PO Q6HR #120 cap 08/04/20 Rx Ciprofloxacin [Cipro] 500 mg PO BID #60 tab 08/04/20 Rx Past History: PMHx: Left foot osteomyelitis Diabetes mellitus Intermittent neuropathy PSHx: Multiple left foot digit amputations FHx: Significant for coronary artery disease Social: Denies any alcohol or illicit drug use. Hospitalist Exam General Appearance: NAD, awake alert Eye: PERRL, anicteric sclera ENT: normocephalic atraumatic, no oropharyngeal lesions Neck: supple, symmetric Heart: RRR, no murmur Respiratory: CTAB, no wheezes Gastrointestinal: soft, non-tender, no palpable masses Extremities: no cyanosis, no clubbing Skin: normal turgor, no lesions Neurological: cranial nerve grossly intact, normal sensation to touch Musculoskeletal: normal tone, normal strength Psychiatric: normal affect, oriented to place Hospitalist Results Result Diagrams: 08/28/20 17:58 08/28/20 17:58 Lab results: Laboratory Last Values WBC 12.4 thou/uL (4.8-10.8) H 08/28/20 17:58 RBC 3.98 mill/uL (4.20-5.40) L 08/28/20 17:58 Hgb 10.5 g/dL (12.0-16.0) L 08/28/20 17:58 Hct 32.4 % (36.0-47.0) L 08/28/20 17:58 MCV 81.3 fL (78.0-98.0) 08/28/20 17:58 MCH 26.3 pg (27.0-31.0) L 08/28/20 17:58 MCHC 32.4 g/dL (32.0-36.0) 08/28/20 17:58 RDW 13.3 % (11.5-14.5) 08/28/20 17:58 Plt Count 392 thou/uL (130-400) 08/28/20 17:58 MPV 8.6 fL (7.4-10.4) 08/28/20 17:58 Neutrophils % 68.0 % (42.0-75.0) 08/28/20 17:58 Lymphocytes % 23.8 % (21.0-51.0) 08/28/20 17:58 Monocytes % 5.0 % (0.0-10.0) 08/28/20 17:58 Eosinophils % 2.7 % (0.0-10.0) 08/28/20 17:58 Basophils % 0.6 % (0.0-1.0) 08/28/20 17:58 Neutrophils # 8.5 thou/uL (1.40-6.50) H 08/28/20 17:58 Lymphocytes # 3.0 thou/uL (1.20-3.40) 08/28/20 17:58 Monocytes # 0.6 thou/uL (0.11-0.59) H 08/28/20 17:58 Eosinophils # 0.3 thou/uL (0.0-0.7) 08/28/20 17:58 Basophils # 0.1 thou/uL (0.0-0.2) 08/28/20 17:58 ESR Westergren 91 mm/hr (Less than 20) H 08/28/20 17:58 Sodium 133 mmol/L (136-145) L 08/28/20 17:58 Potassium 4.6 mmol/L (3.5-5.1) 08/28/20 17:58 Chloride 99 mmol/L (98-107) 08/28/20 17:58 Carbon Dioxide 25 mmol/L (22-29) 08/28/20 17:58 Anion Gap 14 mmol/L (10-20) 08/28/20 17:58 BUN 33 mg/dL (7.0-18.7) H 08/28/20 17:58 Creatinine 1.28 mg/dL (0.6-1.1) H 08/28/20 17:58 Estimated GFR (MDRD) 45 08/28/20 17:58 Glucose 358 mg/dL (70-105) H 08/28/20 17:58 Lactic Acid 0.9 mmol/L (0.5-2.2) 08/28/20 17:58 Calcium 9.0 mg/dL (7.8-10.44) 08/28/20 17:58 Total Bilirubin 0.4 mg/dL (0.2-1.2) 08/28/20 17:58 AST 9 U/L (5-34) 08/28/20 17:58 ALT Less than 7 U/L (8-55) L 08/28/20 17:58 Alkaline Phosphatase 107 U/L (40-110) 08/28/20 17:58 C-Reactive Protein 18.09 mg/dL (= or < 0.5) H 08/28/20 17:58 Serum Total Protein 7.8 g/dL (6.0-8.3) 08/28/20 17:58 Albumin 3.2 g/dL (3.5-5.0) L 08/28/20 17:58 Globulin 4.6 g/dL (2.4-3.5) H 08/28/20 17:58 Albumin/Globulin Ratio 0.7 g/dL (1.2-2.2) L 08/28/20 17:58 Hospitalist H&P A/P (1) STEPH (acute kidney injury) Code(s): N17.9 - ACUTE KIDNEY FAILURE, UNSPECIFIED Status: Acute (2) Amputated toe of right foot Code(s): S98.131A - COMPLETE TRAUMATIC AMPUTATION OF ONE RIGHT LESSER TOE, INIT Status: Acute (3) Cellulitis of left foot Code(s): L03.116 - CELLULITIS OF LEFT LOWER LIMB Status: Acute (4) Osteomyelitis of left foot Code(s): M86.9 - OSTEOMYELITIS, UNSPECIFIED Status: Acute (5) DM (diabetes mellitus), type 2, uncontrolled Code(s): E11.65 - TYPE 2 DIABETES MELLITUS WITH HYPERGLYCEMIA Status: Chronic Qualifiers: Glycemic state: with hypoglycemia (6) HTN (hypertension) Code(s): I10 - ESSENTIAL (PRIMARY) HYPERTENSION Status: Chronic Qualifiers: (7) Morbid obesity with BMI of 40.0-44.9, adult Code(s): E66.01 - MORBID (SEVERE) OBESITY DUE TO EXCESS CALORIES; Z68.41 - BODY MASS INDEX [BMI]40.0-44.9, ADULT Status: Chronic (8) Peripheral neuropathy Code(s): G62.9 - POLYNEUROPATHY, UNSPECIFIED Status: Chronic Plan: Left foot osteomyelitisinvolving the metatarsal heads Patient will need extensive debridement of the area We will consult oil well directional surveyor Start vancomycin Pharmacy to dose Hypertensioncontrolled Diabetes mellitus that elevated Resume home regimen Start insulin sliding scale with Accu-Cheks DVT prophylaxissubcutaneous Lovenox Elevated creatinineconsult renal May be component of diabetic nephropathy Advance directivediscussed with patient, wishes to be full code
[2020-08-29] MEDS ORDERED: HYDROcodone/Acetaminophen 5/325 mg Tablet ONE (00:47)
[2020-08-29] MEDS: HYDROcodone/Acetaminophen 5/325 mg Tablet PO PRN ×2 (00:51→09:22)
[2020-08-29] MEDS ORDERED: Morphine 4 MG/ML VIAL ONE (03:08)
[2020-08-29] MEDS ORDERED: Sodium Chloride 0.9% 1,000 ML IV SCH (03:45)
[2020-08-29 05:08] LABS: SARS-CoV-2 PCR by NAA Not Detected (NotDetected)
[2020-08-29] MEDS ORDERED: Morphine 2 MG/ML VIAL ONE (05:10)
[2020-08-29] MEDS: Morphine 2 MG/ML VIAL SLOW IVP PRN ×2 (05:17→16:07)
[2020-08-29 06:01] LABS: Hemoglobin 9.2 g/dL (12.0-16.0); Mean Corpuscular HGB CONC 32.8 g/dL (32.0-36.0); Mean Corpuscular Hemoglobin 26.8 pg (27.0-31.0); Mean Corpuscular Volume 81.5 fL (78.0-98.0); Mean Platelet Volume 8.5 fL (7.4-10.4); Platelet Count 361 thou/uL (130-400); RBC Distribution Width 13.3 % (11.5-14.5); Red Blood Cell (RBC) Count 3.43 mill/uL (4.20-5.40); White Blood Cell (WBC) Count 11.7 thou/uL (4.8-10.8)
[2020-08-29 06:16] LABS: ALT (SGPT) 7 U/L (8-55); AST (SGOT) 9 U/L (5-34); Albumin 2.8 g/dL (3.5-5.0); Alkaline Phosphatase 95 U/L (40-110); Anion Gap 11 mmol/L (10-20); BUN (Urea Nitrogen) 30 mg/dL (7.0-18.7); Bilirubin, Total 0.3 mg/dL (0.2-1.2); Calc. Creatinine Clearance 0 mL/min (70-130); Calcium 8.3 mg/dL (7.8-10.44); Carbon Dioxide 26 mmol/L (22-29); Chloride 101 mmol/L (98-107); Globulin 4.3 g/dL (2.4-3.5); Glucose 410 mg/dL (70-105); Potassium 4.2 mmol/L (3.5-5.1); Protein, Total 7.1 g/dL (6.0-8.3); Sodium 134 mmol/L (136-145)
[2020-08-29 06:18] LABS: Eosinophils 5 % (0-10); Lymphocytes 30 % (21-51); MDiff Complete? YES; Monocytes 12 % (0-10); Myelocyte 1 % (0-0); Neutrophil 52 % (42-75); Platelet Morphology Comment Appears Adequate
--- NOTE | 2020-08-29 07:33 | PDOC.HOSPP ---
- Subjective Encounter Date: 08/29/20 Encounter Time: 10:00 Subjective: Patient reports that she is continuing to have significant pain in her foot. The pain medicines are not helping much. She is also asking for her Imodium that she takes daily at home. No fevers or other symptoms. - Objective Result Diagrams: 08/29/20 05:44 08/29/20 05:44 Hospitalist ROS - Review of Systems Constitutional: denies: fever, chills Respiratory: denies: cough, shortness of breath Cardiovascular: denies: chest pain, palpitations Gastrointestinal: denies: nausea, vomiting, abdominal pain Musculoskeletal: reports: foot pain - Medication Medications: Active Medications Generic Name Dose Route Start Last Admin Trade Name Freq PRN Reason Stop Dose Admin Hydrocodone Bitart/Acetaminophen 1 tab 08/28/20 23:55 08/29/20 00:51 Hydrocodone/Acetaminophen 5/325 Mg Tablet PO 1 tab Q4H PRN Administration Moderate Pain (4-6) Morphine Sulfate 2 mg 08/29/20 02:57 08/29/20 05:17 Morphine 2 Mg/Ml Vial SLOW IVP 2 mg Q4H PRN Administration Severe Pain (7-10) Hospitalist Exam General Appearance: NAD, awake alert ENT: moist mucosa Heart: RRR, no murmur, no gallops, no rubs Respiratory: CTAB, no wheezes, no rales, no ronchi Gastrointestinal: soft, non-tender, non-distended, normal bowel sounds Extremities - other findings: Dressing to foot clean dry and intact Psychiatric: normal affect, normal behavior, A&O x 3 Hosp A/P - Plan Left foot osteomyelitisinvolving the metatarsal heads Patient will need extensive debridement of the area We will consult general surgery Dr. Vega Started vancomycin, will add Cefepime as well Pharmacy to dose Hypertensioncontrolled Diabetes mellitus type 2 Resume home regimen Start insulin sliding scale with Accu-Cheks Acute Renal Failure Improved with fluids, can cancel renal consult DVT prophylaxissubcutaneous Lovenox GI prophylaxis-Pepcid BID Disposition: Will likely need amputation due to non-compliance with medical management.
[2020-08-29] MEDS ORDERED: Metoclopramide HCl 10 MG TAB ONE (09:05)
[2020-08-29] MEDS: Cefepime 2 GM in Sodium Chloride 0.9% 100 ML IVPB SCH ×2 (09:21→20:11)
[2020-08-29] MEDS: Enoxaparin Sodium 40 MG/0.4 ML SYRINGE SC SCH (09:21)
[2020-08-29] MEDS: Famotidine 20 MG TAB PO SCH ×2 (09:22→20:11)
[2020-08-29] MEDS: HumuLIN 70/30 (300 UNITS/3 ML VIAL) SC SCH ×2 (09:48→22:05)
--- NOTE | 2020-08-29 15:34 | CON ---
DATE OF CONSULTATION: HISTORY OF PRESENT ILLNESS: Jeanne Olson is a 50-year-old female, who has had recurrent problems with her left foot from a diabetic ulceration and infection standpoint. I have seen her on multiple occasions since 2019 for different things. On 08/03/2020, the patient underwent debridement of skin, subcutaneous tissue, soft tissue of foot with cultures of deep tissue and resection of metatarsals 3, 4, and 5, with wound left open, good blood supply noted, palpable pulses noted. The patient has been undergoing wound VAC care and antibiotics. She was on oral antibiotics. She states she lost her antibiotics more than 2 to 3 weeks ago. To my recollection, she has not followed up in my office. She is admitted on 08/28/2020 to Hospitalist Service because of problems with her left foot. She had increased bloody purulent drainage. Plain x-ray suggested osteomyelitis amputated portions of the 1st and 3rd metatarsals. As noted above, she recently had surgery less than 4 weeks ago of metatarsals 3, 4, and 5. The patient is uninsured and unfunded. She reminds me that she does not have transportation to come to the hospital for infusion therapy. She has trouble making it to Wound Care. Review of her x-rays revealed left foot metatarsal 5 looks fairly good, 4 has been proximally resected and is mottled in appearance. 3 has mottling, 4 looks fairly good. There were not enough of the metatarsals of 2, 3, 4, and 5 for more proximal resection without getting into the ankle bones. White count is 12 yesterday, 11.7 today. Basic metabolic profile normal with mild elevation of BUN and creatinine of 33 and 1.28. Her cultures obtained revealed gram-negative kayode and ID pending. ALLERGIES: CEFTRIAXONE. MEDICATIONS AT HOME: 1. Insulin. 2. Gabapentin. 3. Cipro and cephalexin, both of which she has run out of. 4. Tramadol. Dr. Phillips had seen her on 08/04/2020, prior to discharge. The patient remains afebrile. SOCIAL HISTORY: Tobacco, none. Alcohol, none. Medications, as noted. PAST SURGICAL HISTORY: Multiple amputations in right and left foot as described, C-sections x3, shoulder surgery. PAST MEDICAL HISTORY: Diabetes mellitus, obesity, neuropathy, history of osteomyelitis. REVIEW OF SYSTEMS: Noncontributory. PHYSICAL EXAMINATION: VITAL SIGNS: Temperature 98.2, pulse 73, blood pressure 126/60. HEAD, EARS, EYES, NOSE, AND THROAT: Unremarkable. LUNGS: Clear to auscultation. CARDIAC: Regular rate and rhythm without murmur or gallop. ABDOMEN: Soft, nontender. EXTREMITIES: Left foot reveals that it is looks grossly unremarkable. There is no cellulitis. There was granulating wound. Probing the wound reveals that there is probably exposed metatarsals 3, 4, and 5, deep within the wound. There is no purulent drainage. Tissues look healthy. She has palpable pedal pulses. ASSESSMENT AND PLAN: 1. Open wound, left foot. We will continue local wound care and antibiotics. We would recommend consultation with Dr. Phillips. Currently, I do not think there is anything I can do that would help her resolve these problems. Possibly could perform further resection of the 1st metatarsal, but the 3rd, 4th, and 5th are as proximal as I could get them and before I get into the ankle bones which has poor circulation and would not heal, I have told the patient her best bet would be either continued intravenous antibiotics and wound care. She has transportation difficulty and lack of financial resources such that she states she cannot do infusion therapy. At this point, other option which I think will need to be considered in the near future would be BKA. The patient, however, is not interested in this at this time. 2. Chronic kidney disease. 3. Diabetes mellitus, insulin dependent. Job ID: [id number]
[2020-08-29] MEDS: Loperamide HCl 2 MG CAP PO PRN (16:07)
[2020-08-29] MEDS ORDERED: VANCOMYCIN 1.25 GM/250 ML BAG 1.25 GM in Premix Bag 1 BAG IVPB SCH (17:00)
[2020-08-29] MEDS: Gabapentin 300 MG CAP PO SCH (22:03)
[2020-08-30 03:10] VITALS: BMI 35.4
[2020-08-30] MEDS: Morphine 2 MG/ML VIAL SLOW IVP PRN ×3 (04:25→20:12)
--- NOTE | 2020-08-30 07:12 | PDOC.HOSPP ---
- Subjective Encounter Date: 08/30/20 Encounter Time: 10:00 Subjective: Patient reports that her foot is hurting a lot after her dressing change this morning, and she has not been able to get pain medicine because her blood pressure dropped this morning. Per nursing patient's systolic blood pressure has been in the 80s since earlier this morning. Patient has felt a little bit tired but no other significant symptoms. She does have some chronic epigastric pain that comes and goes and is going on for years, nothing unusual for her. - Objective Vital Signs & Weight: Vital Signs (12 hours) Temp Pulse Resp BP BP BP Pulse Ox 08/30/20 03:57 97.9 F 72 14 89/54 L 98 08/30/20 00:08 98.0 F 74 16 138/63 99 08/29/20 20:00 97 08/29/20 19:47 97.8 F 81 16 161/70 H 97 Weight Weight 194 lb 0.108 oz I&O: 08/29/20 08/30/20 08/31/20 06:59 06:59 06:59 Intake Total 1550 Balance 1550 Result Diagrams: 08/29/20 05:44 08/29/20 05:44 Additional Labs: Accuchecks 08/30/20 08/29/20 08/29/20 06:02 21:36 16:24 POC Glucose 114 H 127 H 85 08/29/20 08/29/20 11:37 08:26 POC Glucose 270 H 310 H Hospitalist ROS - Review of Systems Constitutional: reports: weakness. denies: fever, chills Respiratory: denies: cough, shortness of breath Cardiovascular: denies: chest pain, palpitations Gastrointestinal: reports: abdominal pain (Epigastric pain on and off mostly with movement). denies: nausea, vomiting, diarrhea, constipation Genitourinary: denies: dysuria, hematuria - Medication Medications: Active Medications Generic Name Dose Route Start Last Admin Trade Name Freq PRN Reason Stop Dose Admin Enoxaparin Sodium 40 mg 08/29/20 09:00 08/29/20 09:21 Enoxaparin Sodium 40 Mg/0.4 Ml Syringe SC 40 mg 0900 BOGDAN Administration Famotidine 20 mg 08/29/20 09:00 08/29/20 20:11 Famotidine 20 Mg Tab PO 20 mg BID BOGDAN Administration Gabapentin 900 mg 08/29/20 21:00 08/29/20 22:03 Gabapentin 300 Mg Cap PO 900 mg TID BOGDAN Administration Vancomycin HCl 1.25 gm/ Device 250 mls @ 166.667 mls/hr 08/29/20 17:00 08/29/20 16:28 IVPB 250 mls 1700 BOGDAN Administration Cefepime HCl 2 gm/ Sodium 100 mls @ 200 mls/hr 08/29/20 09:00 08/29/20 20:11 Chloride IVPB 100 mls Q12HR BOGDAN Administration Insulin Human Isoph/Insulin Regular 40 units 08/29/20 21:00 08/29/20 22:05 Humulin 70/30 (300 Units/3 Ml Vial) SC 40 unit QPM BOGDAN Administration Insulin Human Isoph/Insulin Regular 60 units 08/29/20 09:00 08/29/20 09:48 Humulin 70/30 (300 Units/3 Ml Vial) SC 60 unit QAM BODGAN Administration Loperamide HCl 2 mg 08/29/20 11:24 08/29/20 16:07 Loperamide Hcl 2 Mg Cap PO 2 mg PRN PRN Administration Diarrhea/Loose Stools Morphine Sulfate 2 mg 08/29/20 02:57 08/30/20 04:25 Morphine 2 Mg/Ml Vial SLOW IVP 2 mg Q4H PRN Administration Severe Pain (7-10) Sodium Chloride 10 ml 08/29/20 09:00 08/29/20 20:12 Flush - Normal Saline 10 Ml Syringe IVF 10 ml Q12HR BOGDAN Administration Hospitalist Exam Vitals: Vital Signs (12 hours) Temp Pulse Resp BP BP BP Pulse Ox 08/30/20 03:57 97.9 F 72 14 89/54 L 98 08/30/20 00:08 98.0 F 74 16 138/63 99 08/29/20 20:00 97 08/29/20 19:47 97.8 F 81 16 161/70 H 97 Weight Weight 194 lb 0.108 oz General Appearance: NAD, awake alert ENT: moist mucosa Heart: RRR, no murmur, no gallops, no rubs, normal peripheral pulses Respiratory: CTAB, no wheezes, no rales, no ronchi Gastrointestinal: soft, non-tender, non-distended, normal bowel sounds Extremities - other findings: Left foot wound VAC in place Psychiatric: normal affect, normal behavior, A&O x 3 Hosp A/P - Plan Left foot osteomyelitisinvolving the metatarsal heads Dr. Vega consulted, has recommended below the knee amputation to the patient, however, patient is resistant and wants to try antibiotics first. Dr. George has stated that there is no more surgery limits of the foot that he can do at this point. Dr. Phillips consulted for antibiotic recommendation, will be difficult due to patient lack of funding/resources Continue vancomycin and Cefepime Pharmacy to dose Hypotension Hold BP meds 500 mL normal saline bolus, then run fluids continuously after that Check lactic acid, white blood cell count not significantly elevated, no fever Hypertensioncontrolled, running a bit low this morning, will hold blood pressure medicines until blood pressure rebounds Diabetes mellitus type 2 Resume home regimen Start insulin sliding scale with Accu-Cheks Acute Renal Failure Improved with fluids Diabetic neuropathy Will resume home Gabapentin DVT prophylaxissubcutaneous Lovenox GI prophylaxis-Pepcid BID Disposition: May eventually need amputation but attempting treatment with antibiotics first.
[2020-08-30] MEDS ORDERED: Sodium Chloride 0.9% 1,000 ML IV SCH (10:15)
[2020-08-30] MEDS: HYDROcodone/Acetaminophen 10/325 mg Tablet PO PRN ×2 (11:51→20:11)
[2020-08-30] MEDS: Cefepime 2 GM in Sodium Chloride 0.9% 100 ML IVPB SCH ×2 (11:51→22:00)
[2020-08-30] MEDS: Famotidine 20 MG TAB PO SCH ×2 (11:52→20:10)
[2020-08-30] MEDS: Gabapentin 300 MG CAP PO SCH ×5 (11:52→20:10)
[2020-08-30] MEDS: Enoxaparin Sodium 40 MG/0.4 ML SYRINGE SC SCH (11:54)
[2020-08-30] MEDS: HumuLIN 70/30 (300 UNITS/3 ML VIAL) SC SCH ×2 (11:54→23:01)
--- NOTE | 2020-08-30 15:21 | CON ---
DATE OF CONSULTATION: 08/30/2020 HISTORY OF PRESENT ILLNESS: Ms. Olson is back in the hospital with the same issue that she had before on the last admission. In summary, she has had recurring complications in right and left feet from a diabetic neuropathy and infections and the processes in the right foot have resolved, but the left foot has a more refractory problem. She has had a transmet amputation there and continues with pain and inflammatory changes and appears to have one distal aspect of the 3rd and 4th metatarsals' remnants still causing issues, probably still infected. Dr. Vega is concerned about doing anymore surgical procedure there and she may end up with a BKA on that side. Anyways, the patient was discharged last time on quinolone and Keflex. The previous cultures yielded group B strep, Prevotella bivia. In May, she had Pseudomonas aeruginosa, which was susceptible to quinolones. The Prevotella grew after the discharge. When she went home, she reportedly lost her medications. She does not know where they were located and she is back in the hospital with moderate exacerbation of inflammatory process in the left foot. She still cannot do IV therapy because of transportation issues. Otherwise, no headaches. No shortness of breath, cough, or sputum production. No chest pain. No abdominal pain or diarrhea. PHYSICAL EXAMINATION: VITAL SIGNS: She is afebrile. Other vital signs are essentially normal. LUNGS: Clear. HEART: S1 and S2. Regular rate. ABDOMEN: Soft, not distended. EXTREMITIES: Left foot with a little fissured stump more towards the lateral aspect with some moderate erythema and that fissure kind of penetrates into the distal end of the metatarsal, probably the 4th metatarsal, but could be the 3rd. The vascular supply appears to be adequate. LABORATORY DATA: White cell count was 12,000 and now is 11.7, hemoglobin 9.2, and platelets 361. Creatinine 1.17. Glucose 270. Normal liver function tests. Albumin 2.8. SARS-CoV-2 was not detected. Microbiology with group B strep and gram-negative kayode yet to be identified. ASSESSMENT: Type 2 diabetes with neuropathy and multiple recurrent complications, now with a more of a refractory process in the left foot. The right foot issues have resolved. Last time for some reason, she lost her antimicrobial tablets and did not take any medication for the past week and a half to 2 weeks. We will wait for the last culture to result and then we will devise another regimen, probably combination of Augmentin and ciprofloxacin. She is running the risk of below-knee amputation. Job ID: [id number] [facility]
[2020-08-30 15:48] LABS: Vancomycin, Trough 11.4 ug/mL
[2020-08-30] MEDS: Vancomycin 1.5 GRAM/300 ML BAG 1.5 GM in Premix Bag 1 BAG IVPB SCH (20:09)
[2020-08-30] MEDS: Loperamide HCl 2 MG CAP PO PRN (20:11)
[2020-08-30] MEDS ORDERED: Calcium Carbonate 500 MG ChewTAB PO PRN (23:21)
[2020-08-31] MEDS: HYDROcodone/Acetaminophen 10/325 mg Tablet PO PRN ×4 (01:04→19:59)
[2020-08-31] MEDS: Morphine 2 MG/ML VIAL SLOW IVP PRN ×4 (01:04→19:59)
[2020-08-31 05:17] LABS: #Basophils 0.1 thou/uL (0.0-0.2); #Eosinphils 0.4 thou/uL (0.0-0.7); #Lymphocytes 4.5 thou/uL (1.20-3.40); #Monocytes 0.7 thou/uL (0.11-0.59); #Neutrophils 4.9 thou/uL (1.40-6.50); %Basophils 1.2 % (0.0-1.0); %Eosinophils 4.1 % (0.0-10.0); %Lymphocytes 42.5 % (21.0-51.0); %Monocytes 6.3 % (0.0-10.0); %Neutrophils 46.1 % (42.0-75.0); Hemoglobin 9.1 g/dL (12.0-16.0); Mean Corpuscular HGB CONC 31.7 g/dL (32.0-36.0); Mean Corpuscular Hemoglobin 26.2 pg (27.0-31.0); Mean Corpuscular Volume 82.6 fL (78.0-98.0); Mean Platelet Volume 8.3 fL (7.4-10.4); Platelet Count 358 thou/uL (130-400); RBC Distribution Width 13.3 % (11.5-14.5); Red Blood Cell (RBC) Count 3.47 mill/uL (4.20-5.40); White Blood Cell (WBC) Count 10.7 thou/uL (4.8-10.8)
[2020-08-31 05:37] LABS: Anion Gap 11 mmol/L (10-20); BUN (Urea Nitrogen) 23 mg/dL (7.0-18.7); Calc. Creatinine Clearance 104 mL/min (70-130); Calcium 8.5 mg/dL (7.8-10.44); Carbon Dioxide 27 mmol/L (22-29); Chloride 102 mmol/L (98-107); Glucose 160 mg/dL (70-105); Potassium 4.3 mmol/L (3.5-5.1); Sodium 136 mmol/L (136-145)
--- NOTE | 2020-08-31 07:27 | PDOC.HOSPP ---
- Subjective Encounter Date: 08/31/20 Encounter Time: 10:00 Subjective: Patient feeling much better today. Pain better controlled. No further hypotension this morning. - Objective Vital Signs & Weight: Vital Signs (12 hours) Pulse Resp BP Pulse Ox 08/30/20 23:17 79 14 145/75 H 97 Weight Admit Weight 194 lb 0.096 oz Weight 194 lb 0.108 oz I&O: 08/30/20 08/31/20 09/01/20 06:59 06:59 06:59 Intake Total 1550 2300 Balance 1550 2300 Result Diagrams: 08/31/20 04:42 08/31/20 04:42 Additional Labs: Accuchecks 08/30/20 08/30/20 16:20 12:12 POC Glucose 176 H 280 H Hospitalist ROS - Review of Systems Constitutional: denies: fever, chills Respiratory: denies: cough, shortness of breath Cardiovascular: denies: chest pain, palpitations Gastrointestinal: denies: nausea, vomiting, abdominal pain, diarrhea, constipation Musculoskeletal: reports: foot pain (Left) - Medication Medications: Active Medications Generic Name Dose Route Start Last Admin Trade Name Freq PRN Reason Stop Dose Admin Hydrocodone Bitart/Acetaminophen 1 tab 08/29/20 10:10 08/31/20 01:04 Hydrocodone/Acetaminophen 10/325 Mg Tablet PO 1 tab Q4H PRN Administration Mild-Moderate Pain (1-5) Calcium Carbonate 1,000 mg 08/30/20 23:21 08/30/20 23:25 Calcium Carbonate 500 Mg Chewtab PO 1,000 mg Q4H PRN Administration Heartburn or Indigestion Enoxaparin Sodium 40 mg 08/29/20 09:00 08/30/20 11:54 Enoxaparin Sodium 40 Mg/0.4 Ml Syringe SC 40 mg 0900 BOGDAN Administration Famotidine 20 mg 08/29/20 09:00 08/30/20 20:10 Famotidine 20 Mg Tab PO 20 mg BID BOGDAN Administration Gabapentin 900 mg 08/30/20 09:00 08/30/20 20:10 Gabapentin 300 Mg Cap PO 900 mg TID BOGDAN Administration Cefepime HCl 2 gm/ Sodium 100 mls @ 200 mls/hr 08/29/20 09:00 08/30/20 22:00 Chloride IVPB 100 mls Q12HR BOGDAN Administration Vancomycin HCl 1.5 gm/ Device 300 mls @ 200 mls/hr 08/30/20 17:00 08/30/20 20:09 IVPB 300 mls 1700 BOGDAN Administration Insulin Human Isoph/Insulin Regular 40 units 08/29/20 21:00 08/30/20 23:01 Humulin 70/30 (300 Units/3 Ml Vial) SC Not Given QPM BOGDAN Insulin Human Isoph/Insulin Regular 60 units 08/29/20 09:00 08/30/20 11:54 Humulin 70/30 (300 Units/3 Ml Vial) SC 30 unit QAM BOGDAN Administration Loperamide HCl 2 mg 08/29/20 11:24 08/30/20 20:11 Loperamide Hcl 2 Mg Cap PO 2 mg PRN PRN Administration Diarrhea/Loose Stools Morphine Sulfate 2 mg 08/29/20 02:57 08/31/20 01:04 Morphine 2 Mg/Ml Vial SLOW IVP 2 mg Q4H PRN Administration Severe Pain (7-10) Sodium Chloride 10 ml 08/29/20 09:00 08/30/20 20:25 Flush - Normal Saline 10 Ml Syringe IVF 10 ml Q12HR BOGDAN Administration Hospitalist Exam Vitals: Vital Signs (12 hours) Pulse Resp BP Pulse Ox 08/30/20 23:17 79 14 145/75 H 97 Weight Admit Weight 194 lb 0.096 oz Weight 194 lb 0.108 oz General Appearance: NAD, awake alert ENT: moist mucosa Heart: RRR, no murmur, no gallops, no rubs Respiratory: CTAB, no wheezes, no rales, no ronchi Gastrointestinal: soft, non-tender, non-distended, normal bowel sounds Extremities - other findings: Left forefoot wound VAC in place Psychiatric: normal affect, normal behavior, A&O x 3 Hosp A/P - Plan Left foot osteomyelitisinvolving the metatarsal heads Dr. Vega consulted, has recommended below the knee amputation to the patient, however, patient is resistant and wants to try antibiotics first. Dr. George has stated that there is no more surgery limits of the foot that he can do at this point. Dr. Phillips consulted for antibiotic recommendation, will be difficult due to patient lack of funding/resources, likely Augmentin and Cipro depending on culture results Continue vancomycin and Cefepime Pharmacy to dose Hypotension on 08/30/2020-resolved Held BP meds 500 mL normal saline bolus, then run fluids continuously after that Check lactic acid- negative, white blood cell count not significantly elevated, no fever Hypertensioncontrolled, resume home BP meds when BP rebounds Diabetes mellitus type 2 Resumed home regimen Start insulin sliding scale with Accu-Cheks Decently controlled Acute Renal Failure Improved with fluids Diabetic neuropathy Will resume home Gabapentin DVT prophylaxissubcutaneous Lovenox GI prophylaxis-Pepcid BID Disposition: May eventually need amputation but attempting treatment with antibiotics first. PT eval and get her a walking boot.
--- NOTE | 2020-08-31 08:08 | PRG ---
DATE OF SERVICE: 08/31/2020 SUBJECTIVE: Jeanne Olson was seen this morning. Her dressing was not removed. OBJECTIVE: VITAL SINGS: Temperature 98.4 degrees, pulse rate 78, and blood pressure 122/70. Dr. Phillips antibiotics. ASSESSMENT AND PLAN: It is recommended that the patient undergo a below-knee amputation, but she wants to try antibiotics, wound care again. I do not think this wound will heal, but it is worth an effort and it will not hurt to get treated with antibiotics and wound care. She did lose her past antibiotics and did not finish the course. At this point, I recommend she see me in the office in 3 to 4 weeks. Her previous office visit was not possible due to the cold weather. Job ID: [id number]
[2020-08-31] MEDS: Gabapentin 300 MG CAP PO SCH ×3 (10:11→19:58)
[2020-08-31] MEDS: Famotidine 20 MG TAB PO SCH ×2 (10:11→19:59)
[2020-08-31] MEDS: Enoxaparin Sodium 40 MG/0.4 ML SYRINGE SC SCH (10:14)
[2020-08-31] MEDS: Cefepime 2 GM in Sodium Chloride 0.9% 100 ML IVPB SCH ×2 (10:14→23:15)
[2020-08-31] MEDS: HumuLIN 70/30 (300 UNITS/3 ML VIAL) SC SCH ×2 (10:14→21:27)
[2020-08-31] MEDS: HumaLOG 300 UNITS/3 ML VIAL SC PRN (12:18)
[2020-08-31] MEDS: Ondansetron PF 4 MG/2 ML Vial IVP PRN (14:16)
[2020-08-31] MEDS: Vancomycin 1.5 GRAM/300 ML BAG 1.5 GM in Premix Bag 1 BAG IVPB SCH (16:47)
[2020-08-31] MEDS: metroNIDAZOLE 500 MG TAB PO SCH (19:58)
[2020-08-31] MEDS: Loperamide HCl 2 MG CAP PO PRN (21:24)
[2020-09-01] MEDS: HYDROcodone/Acetaminophen 10/325 mg Tablet PO PRN ×5 (00:31→20:35)
[2020-09-01] MEDS: Morphine 2 MG/ML VIAL SLOW IVP PRN ×5 (00:32→20:35)
[2020-09-01] MEDS: HumaLOG 300 UNITS/3 ML VIAL SC PRN (05:50)
--- NOTE | 2020-09-01 07:21 | PDOC.HOSPP ---
- Subjective Encounter Date: 09/01/20 Encounter Time: 12:30 Subjective: Patient reports feeling better today. She is up and ambulating. She did have a low blood sugar this morning resolved with eating and only got part of a dose her insulin this morning. Pain is well controlled. - Objective Vital Signs & Weight: Vital Signs (12 hours) Temp Pulse Resp BP BP Pulse Ox 09/01/20 03:50 97.5 F L 85 16 139/68 97 08/31/20 23:52 98.2 F 86 16 133/73 100 08/31/20 20:09 97.8 F 79 18 132/65 97 08/31/20 20:00 97 Weight Admit Weight 194 lb 0.096 oz Weight 194 lb 0.108 oz I&O: 08/31/20 09/01/20 09/02/20 06:59 06:59 06:59 Intake Total 2300 1880 Balance 2300 1880 Result Diagrams: 08/31/20 04:42 08/31/20 04:42 Additional Labs: Accuchecks 09/01/20 08/31/20 08/31/20 05:30 17:39 11:13 POC Glucose 168 H 95 209 H 08/30/20 21:28 POC Glucose 128 H Hospitalist ROS - Review of Systems Constitutional: denies: fever, chills Respiratory: denies: cough, shortness of breath Cardiovascular: denies: chest pain, palpitations Gastrointestinal: denies: nausea, vomiting, abdominal pain Musculoskeletal: reports: foot pain (Well-controlled) - Medication Medications: Active Medications Generic Name Dose Route Start Last Admin Trade Name Freq PRN Reason Stop Dose Admin Hydrocodone Bitart/Acetaminophen 1 tab 08/29/20 10:10 09/01/20 05:53 Hydrocodone/Acetaminophen 10/325 Mg Tablet PO 1 tab Q4H PRN Administration Mild-Moderate Pain (1-5) Calcium Carbonate 1,000 mg 08/30/20 23:21 08/30/20 23:25 Calcium Carbonate 500 Mg Chewtab PO 1,000 mg Q4H PRN Administration Heartburn or Indigestion Enoxaparin Sodium 40 mg 08/29/20 09:00 08/31/20 10:14 Enoxaparin Sodium 40 Mg/0.4 Ml Syringe SC 40 mg 0900 BOGDAN Administration Famotidine 20 mg 08/29/20 09:00 08/31/20 19:59 Famotidine 20 Mg Tab PO 20 mg BID BOGDAN Administration Gabapentin 900 mg 08/30/20 09:00 08/31/20 19:58 Gabapentin 300 Mg Cap PO 900 mg TID BOGDAN Administration Cefepime HCl 2 gm/ Sodium 100 mls @ 200 mls/hr 08/29/20 09:00 08/31/20 23:15 Chloride IVPB 100 mls Q12HR BOGDAN Administration Vancomycin HCl 1.5 gm/ Device 300 mls @ 200 mls/hr 08/30/20 17:00 08/31/20 16:47 IVPB 300 mls 1700 BOGDAN Administration Insulin Human Isoph/Insulin Regular 40 units 08/29/20 21:00 08/31/20 21:27 Humulin 70/30 (300 Units/3 Ml Vial) SC Not Given QPM BOGDAN Insulin Human Isoph/Insulin Regular 60 units 08/29/20 09:00 08/31/20 10:14 Humulin 70/30 (300 Units/3 Ml Vial) SC 60 unit QAM BOGDAN Administration Insulin Human Lispro 0 units 08/28/20 23:53 09/01/20 05:50 Humalog 300 Units/3 Ml Vial SC 2 unit .MODERATE SLIDING SC PRN Administration Moderate Correctional Scale Loperamide HCl 2 mg 08/29/20 11:24 08/31/20 21:24 Loperamide Hcl 2 Mg Cap PO 2 mg PRN PRN Administration Diarrhea/Loose Stools Metronidazole 500 mg 08/31/20 21:00 08/31/20 19:58 Metronidazole 500 Mg Tab PO 500 mg TID BOGDAN Administration Morphine Sulfate 2 mg 08/29/20 02:57 09/01/20 05:52 Morphine 2 Mg/Ml Vial SLOW IVP 2 mg Q4H PRN Administration Severe Pain (7-10) Ondansetron HCl 4 mg 08/28/20 23:55 08/31/20 14:16 Ondansetron Pf 4 Mg/2 Ml Vial IVP 4 mg Q6H PRN Administration Nausea/Vomiting Sodium Chloride 10 ml 08/29/20 09:00 08/31/20 19:58 Flush - Normal Saline 10 Ml Syringe IVF 10 ml Q12HR BOGDAN Administration Hospitalist Exam Vitals: Vital Signs (12 hours) Temp Pulse Resp BP BP Pulse Ox 02/25/21 03:50 97.5 F L 85 16 139/68 97 08/31/20 23:52 98.2 F 86 16 133/73 100 08/31/20 20:09 97.8 F 79 18 132/65 97 08/31/20 20:00 97 Weight Admit Weight 194 lb 0.096 oz Weight 194 lb 0.108 oz General Appearance: NAD, awake alert ENT: moist mucosa Heart: RRR, no murmur, no gallops, no rubs Respiratory: CTAB, no wheezes, no rales, no ronchi Gastrointestinal: soft, non-tender, non-distended, normal bowel sounds Extremities - other findings: Left foot with wound VAC in place Psychiatric: normal affect, normal behavior, A&O x 3 Hosp A/P - Plan Left foot osteomyelitisinvolving the metatarsal heads Dr. Vega consulted, has recommended below the knee amputation to the patient, however, patient is resistant and wants to try antibiotics first. Dr. George has stated that there is no more surgery limits of the foot that he can do at this point. Dr. Phillips consulted for antibiotic recommendation, will be difficult due to patient lack of funding/resources Culture results positive for Strep as well as multidrug resistant E. coli. E. coli resistant to Cefepime but sensitive to Zosyn, meropenem, amikacin. Abx switched. Will need to work on outpatient abx plan. Hypotension on 08/30/2020-resolved Held BP meds 500 mL normal saline bolus, then run fluids continuously after that Check lactic acid- negative, white blood cell count not significantly elevated, no fever Hypertensioncontrolled, resume home BP meds when BP rebounds Diabetes mellitus type 2 Resumed home regimen Start insulin sliding scale with Accu-Cheks Decently controlled Acute Renal Failure Improved with fluids Diabetic neuropathy Will resume home Gabapentin DVT prophylaxissubcutaneous Lovenox GI prophylaxis-Pepcid BID Disposition: May eventually need amputation but attempting treatment with antibiotics first.
[2020-09-01] MEDS: Enoxaparin Sodium 40 MG/0.4 ML SYRINGE SC SCH (08:46)
[2020-09-01] MEDS: metroNIDAZOLE 500 MG TAB PO SCH ×3 (08:47→20:33)
[2020-09-01] MEDS: Gabapentin 300 MG CAP PO SCH ×3 (08:47→20:33)
[2020-09-01] MEDS: Famotidine 20 MG TAB PO SCH ×2 (08:47→20:34)
[2020-09-01] MEDS: Piperacillin/Tazobactam 3.375 GM in Sodium Chloride 0.9% 100 ML IVPB SCH ×3 (08:47→20:33)
[2020-09-01] MEDS: HumuLIN 70/30 (300 UNITS/3 ML VIAL) SC SCH ×2 (08:48→20:34)
--- NOTE | 2020-09-01 16:16 | PRG ---
DATE OF SERVICE: 09/01/2020 SUBJECTIVE: Ms. Olson has had a short episode of blood sugar in the 50s. Otherwise, she feels okay. No respiratory symptoms or abdominal pain. Voiding without difficulty. OBJECTIVE: VITAL SIGNS: Temperature has been normal. LUNGS: Clear. HEART: S1 and S2, regular rate. ABDOMEN: Soft, not distended. EXTREMITIES: Foot unchanged. LABORATORY DATA: Chemistry with a creatinine 0.92. White cell count 10.7, hemoglobin. The microbiology showed E coli, which is ESBL, group B strep. She also has Prevotella bivia from prior culture. ASSESSMENT AND DISCUSSION: Chronic recurring complications in the feet to the right foot now. All the inflammatory process has resolved, but the left foot is left with the refractory metatarsal infection. She has failed multiple rounds of therapy she lost her medicines for some reason, but now we have this issue with this ESBL E coli, which had been present in the wound from April 2020, so I am sure this is still there in the deep wound. We will have to re-treat her with continuation of ertapenem and ciprofloxacin in the outpatient setting. The end date of therapy is estimated October 17. She has transportation for 3 weeks and we will have to find other arrangements for the remainder 3 weeks, probably would recommend treating even longer than that, but I do not know if she is going to be able to find transportation. Job ID: [id number] MTDD
[2020-09-01 16:56] VITALS: TEMP 97.6
[2020-09-01 17:11] LABS: Vancomycin, Trough 16.8 ug/mL
[2020-09-01] MEDS: Ondansetron PF 4 MG/2 ML Vial IVP PRN (17:19)
[2020-09-01] MEDS: Vancomycin 1.5 GRAM/300 ML BAG 1.5 GM in Premix Bag 1 BAG IVPB SCH (17:19)
[2020-09-02] MEDS: Piperacillin/Tazobactam 3.375 GM in Sodium Chloride 0.9% 100 ML IVPB SCH ×4 (01:57→20:51)
[2020-09-02] MEDS: HYDROcodone/Acetaminophen 10/325 mg Tablet PO PRN ×3 (02:11→14:39)
[2020-09-02] MEDS: Morphine 2 MG/ML VIAL SLOW IVP PRN ×4 (02:12→20:51)
[2020-09-02] MEDS: HumaLOG 300 UNITS/3 ML VIAL SC PRN (05:55)
[2020-09-02] MEDS: Ondansetron PF 4 MG/2 ML Vial IVP PRN (06:32)
--- NOTE | 2020-09-02 07:12 | PDOC.HOSPP ---
- Subjective Encounter Date: 09/02/20 Encounter Time: 09:50 Subjective: Patient had a low blood sugar yesterday. Decreasing her twice a day 70/30. No other complaints. Patient states that she cannot start getting a ride to daily infusions until Saturday. Currently trying to get her outpatient antibiotics set up before discharge. - Objective Vital Signs & Weight: Vital Signs (12 hours) Temp Pulse Resp BP Pulse Ox 09/01/20 20:00 99 09/01/20 19:53 97.6 F 82 16 144/75 H 99 Weight Admit Weight 194 lb 0.096 oz Weight 194 lb 0.108 oz I&O: 09/01/20 09/02/20 09/03/20 06:59 06:59 06:59 Intake Total 1880 1700 Balance 1880 1700 Result Diagrams: 08/31/20 04:42 08/31/20 04:42 Additional Labs: Accuchecks 09/01/20 09/01/20 09/01/20 17:26 14:33 12:19 POC Glucose 94 107 H 98 08/31/20 08/31/20 20:51 16:38 POC Glucose 134 H 56 L* Hospitalist ROS - Review of Systems Constitutional: denies: fever, chills Respiratory: denies: cough, shortness of breath Cardiovascular: denies: chest pain, palpitations Gastrointestinal: denies: nausea, vomiting, abdominal pain - Medication Medications: Active Medications Generic Name Dose Route Start Last Admin Trade Name Freq PRN Reason Stop Dose Admin Hydrocodone Bitart/Acetaminophen 1 tab 08/29/20 10:10 09/02/20 02:11 Hydrocodone/Acetaminophen 10/325 Mg Tablet PO 1 tab Q4H PRN Administration Mild-Moderate Pain (1-5) Calcium Carbonate 1,000 mg 08/30/20 23:21 08/30/20 23:25 Calcium Carbonate 500 Mg Chewtab PO 1,000 mg Q4H PRN Administration Heartburn or Indigestion Enoxaparin Sodium 40 mg 08/29/20 09:00 09/01/20 08:46 Enoxaparin Sodium 40 Mg/0.4 Ml Syringe SC 40 mg 0900 BOGDAN Administration Famotidine 20 mg 08/29/20 09:00 09/01/20 20:34 Famotidine 20 Mg Tab PO 20 mg BID BOGDAN Administration Gabapentin 900 mg 08/30/20 09:00 09/01/20 20:33 Gabapentin 300 Mg Cap PO 900 mg TID BOGDAN Administration Vancomycin HCl 1.5 gm/ Device 300 mls @ 200 mls/hr 08/30/20 17:00 09/01/20 17:19 IVPB 300 mls 1700 BOGDAN Administration Piperacillin Sod/Tazobactam 100 mls @ 200 mls/hr 09/01/20 08:00 09/02/20 01:57 Sod 3.375 gm/ Sodium Chloride IVPB 100 mls 0200,0800,1400,2000 BOGDAN Administration Insulin Human Lispro 0 units 08/28/20 23:53 09/02/20 05:55 Humalog 300 Units/3 Ml Vial SC 2 unit .MODERATE SLIDING SC PRN Administration Moderate Correctional Scale Loperamide HCl 2 mg 08/29/20 11:24 08/31/20 21:24 Loperamide Hcl 2 Mg Cap PO 2 mg PRN PRN Administration Diarrhea/Loose Stools Metronidazole 500 mg 08/31/20 21:00 09/01/20 20:33 Metronidazole 500 Mg Tab PO 500 mg TID [facility] Administration Morphine Sulfate 2 mg 08/29/20 02:57 09/02/20 02:12 Morphine 2 Mg/Ml Vial SLOW IVP 2 mg Q4H PRN Administration Severe Pain (7-10) Ondansetron HCl 4 mg 08/28/20 23:55 09/02/20 06:32 Ondansetron Pf 4 Mg/2 Ml Vial IVP 4 mg Q6H PRN Administration Nausea/Vomiting Sodium Chloride 10 ml 08/29/20 09:00 09/01/20 20:34 Flush - Normal Saline 10 Ml Syringe IVF 10 ml Q12HR [facility] Administration Hospitalist Exam Vitals: Vital Signs (12 hours) Temp Pulse Resp BP Pulse Ox 09/01/20 20:00 99 09/01/20 19:53 97.6 F 82 16 144/75 H 99 Weight Admit Weight 194 lb 0.096 oz Weight 194 lb 0.108 oz General Appearance: NAD, awake alert ENT: moist mucosa Heart: RRR, no murmur, no gallops, no rubs Respiratory: CTAB, no wheezes, no rales, no ronchi Gastrointestinal: soft, non-tender, non-distended, normal bowel sounds Extremities - other findings: Dressing to left foot clean dry and intact Psychiatric: normal affect, normal behavior, A&O x 3 Hosp A/P - Plan Left foot osteomyelitisinvolving the metatarsal heads Dr. Vega consulted, has recommended below the knee amputation to the patient, however, patient is resistant and wants to try antibiotics first. Dr. George has stated that there is no more surgery limits of the foot that he can do at this point. Dr. Phillips consulted for antibiotic recommendation, will be difficult due to patient lack of funding/resources Culture results positive for Strep as well as multidrug resistant E. coli. E. coli resistant to Cefepime but sensitive to Zosyn, meropenem, amikacin. Abx switched. Dr. Phillips recommending Ertapenem and Ciprofloxaxin for 6 weeks at least until October 17, longer if she can get transportation longer. D/C orders: after d/c pt to continue on Ertapenem (Invanz) 1 g iv daily + Ciprofloxacin 500 po bid end date = October 17 weekly cbc,crp,bmp Hypotension on 08/30/2020-resolved Held BP meds 500 mL normal saline bolus, then run fluids continuously after that Check lactic acid- negative, white blood cell count not significantly elevated, no fever Hypertensioncontrolled, resume home BP meds when BP rebounds Diabetes mellitus type 2 Resumed home regimen Start insulin sliding scale with Accu-Cheks Sugars started dropping the night of 08/31, uncertain why Decreasing scheduled 70/30 from 60u AM and 40u PM to 30u AM and 10u PM Acute Renal Failure Improved with fluids Diabetic neuropathy Will resume home Gabapentin DVT prophylaxissubcutaneous Lovenox GI prophylaxis-Pepcid BID Disposition: Arranging outpatient antibiotics and then can d/c. Will need PICC line. Patient understands the importance of daily wound care as well.
[2020-09-02] MEDS: Famotidine 20 MG TAB PO SCH ×2 (08:05→20:52)
[2020-09-02] MEDS: Gabapentin 300 MG CAP PO SCH ×3 (08:05→20:53)
[2020-09-02] MEDS: metroNIDAZOLE 500 MG TAB PO SCH ×3 (08:06→20:52)
[2020-09-02] MEDS: Enoxaparin Sodium 40 MG/0.4 ML SYRINGE SC SCH (08:11)
[2020-09-02] MEDS: HumuLIN 70/30 (300 UNITS/3 ML VIAL) SC SCH (10:44)
[2020-09-02] MEDS: Loperamide HCl 2 MG CAP PO PRN (11:23)
--- NOTE | 2020-09-02 12:26 | SPC ---
Ultrasound-guidedleftupper extremity PICC placement: 09/02/2020 HISTORY: Access requested for IV antibiotics FINDINGS: Informed consent obtained prior to the procedure. Left antecubital fossa prepped and draped in normal sterile fashion. Skin overlying theleft basilicvein anesthetized with 1% buffered lidocaine. With direct sonographic g uidance, vascular access is obtained via the left basilicvein and an 0.018in wire was advanced to the cavoatrial junction. Intravascular length is calculated at 43 cm and of the PICC is cut according ly. Needle is removed and replaced with a peel-away sheath. The PICC was advanced over the wire. Wire and peel-away sheath were removed. The tip of the catheter overlies the cavoatrial junction. The port flushes well and the catheter is ready for use. Exposure data: 0.0 minutes of fluoroscopic time 368 mGy per centimeter squared IMPRESSION: Successful ultrasound guided placement of a leftupper extremity PICC.
[2020-09-02] MEDS ORDERED: Nystatin Powder 15 GM BOT TOP PRN (15:45)
[2020-09-02] MEDS: Vancomycin 1.5 GRAM/300 ML BAG 1.5 GM in Premix Bag 1 BAG IVPB SCH (17:33)
[2020-09-02] MEDS ORDERED: HumuLIN 70/30 (300 UNITS/3 ML VIAL) SC SCH (21:00)
[2020-09-03] MEDS: HYDROcodone/Acetaminophen 10/325 mg Tablet PO PRN ×2 (00:44→08:24)
[2020-09-03] MEDS: Piperacillin/Tazobactam 3.375 GM in Sodium Chloride 0.9% 100 ML IVPB SCH ×2 (01:36→08:26)
[2020-09-03 06:28] LABS: #Basophils 0.1 thou/uL (0.0-0.2); #Eosinphils 0.5 thou/uL (0.0-0.7); #Lymphocytes 3.8 thou/uL (1.20-3.40); #Monocytes 0.8 thou/uL (0.11-0.59); #Neutrophils 7.4 thou/uL (1.40-6.50); %Basophils 0.6 % (0.0-1.0); %Eosinophils 3.9 % (0.0-10.0); %Lymphocytes 30.2 % (21.0-51.0); %Monocytes 6.6 % (0.0-10.0); %Neutrophils 58.7 % (42.0-75.0); Hemoglobin 8.9 g/dL (12.0-16.0); Mean Corpuscular HGB CONC 31.2 g/dL (32.0-36.0); Mean Corpuscular Hemoglobin 26.1 pg (27.0-31.0); Mean Corpuscular Volume 83.4 fL (78.0-98.0); Mean Platelet Volume 7.9 fL (7.4-10.4); Platelet Count 315 thou/uL (130-400); RBC Distribution Width 13.6 % (11.5-14.5); White Blood Cell (WBC) Count 12.5 thou/uL (4.8-10.8)
[2020-09-03] MEDS ORDERED: Zolpidem Tartrate 5 MG TAB PO PRN (06:53)
[2020-09-03] MEDS ORDERED: Loratadine 10 MG TAB PO PRN (06:53)
[2020-09-03] MEDS ORDERED: GUAIFENESIN SF SOLN 200 MG/10 ML UDCUP PO PRN (06:53)
[2020-09-03] MEDS ORDERED: Sodium Chloride 0.65% Nasal 44 ML BOT EA NARE PRN (06:53)
[2020-09-03] MEDS ORDERED: Cepastat Lozenges 1 LOZ PO PRN (06:53)
[2020-09-03 07:09] LABS: ALT (SGPT) 91 U/L (8-55); AST (SGOT) 72 U/L (5-34); Albumin 2.9 g/dL (3.5-5.0); Alkaline Phosphatase 165 U/L (40-110); Anion Gap 10 mmol/L (10-20); BUN (Urea Nitrogen) 26 mg/dL (7.0-18.7); Bilirubin, Total 0.2 mg/dL (0.2-1.2); Calc. Creatinine Clearance 86 mL/min (70-130); Calcium 8.4 mg/dL (7.8-10.44); Carbon Dioxide 29 mmol/L (22-29); Chloride 103 mmol/L (98-107); Globulin 3.9 g/dL (2.4-3.5); Glucose 160 mg/dL (70-105); Protein, Total 6.8 g/dL (6.0-8.3); Sodium 137 mmol/L (136-145)
[2020-09-03] MEDS: Loperamide HCl 2 MG CAP PO PRN (08:25)
[2020-09-03] MEDS: Gabapentin 300 MG CAP PO SCH (08:25)
[2020-09-03] MEDS: Enoxaparin Sodium 40 MG/0.4 ML SYRINGE SC SCH (08:26)
[2020-09-03] MEDS: metroNIDAZOLE 500 MG TAB PO SCH (08:26)
[2020-09-03] MEDS: Famotidine 20 MG TAB PO SCH (08:27)
[2020-09-03] MEDS: HumuLIN 70/30 (300 UNITS/3 ML VIAL) SC SCH (08:27)
[2020-09-03 08:32] VITALS: BP 115/89
[2020-09-03] MEDS: Ondansetron PF 4 MG/2 ML Vial IVP PRN (08:35)
--- NOTE | 2020-09-03 10:05 | PDOC.DS.DS ---
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 Patient was noted with osteo of the MT head and started on Keflex/Cipro recommended for 6 weeks as well as a wound VAC. She states her bag with her prescriptions was stoled and she has not been able to take the Cipro and Keflex since the last 3 weeks( she only took it for 3 days post discharge]. patient is to continue to use the wound VAC until 3 days ago where she forgot to take off the wound VAC and left it on for over 24 hours. she developed worsening smell and purulent discharge from the opening of the skin ulcer. She said the smell was so bad today she vomited. She denies any fever or chills. She presented to the ED because of worsening smell and drainage as well as pain over the left foot. Foot x-ray shows extensive osteomyelitis of the metatarsal heads. She has been admitted for persistent osteomyelitis of the foot After admission patient was evaluated by infectious disease and general surgery, patient wanted to continue IV antibiotic therapy, she was not interested in going for any amputation, PICC line was placed and Dr. Phillips recommended Invanz 1 g IV daily along with oral ciprofloxacin till October 17, with help of upper caser we arranged outpatient antibiotic therapy and wound care. Patient will follow up with general surgery and Dr. Phillips. Resuscitation Status: 08/28/20 23:55 Resuscitation Status Routine Resuscitation Status: FULL: Full Resuscitation Lab Results: 09/03/20 06:21 09/03/20 06:21 Abnormal Lab Results - Last 48 hrs 09/03/20 06:21: BUN 26 H, Creatinine 1.11 H, AST 72 H, ALT 91 H, Alkaline Phosphatase 165 H, Albumin 2.9 L, Globulin 3.9 H, Albumin/Globulin Ratio 0.7 L 09/03/20 06:21: WBC 12.5 H, RBC 3.40 L, Hgb 8.9 L, Hct 28.4 L, MCH 26.1 L, MCHC 31.2 L, Neutrophils # 7.4 H, Lymphocytes # 3.8 H, Monocytes # 0.8 H 09/03/20 06:21: C-Reactive Protein 1.67 H Microbiology - Entire Visit 08/28/20 20:16 Foot - Pending Bacterial Culture - Final Escherichia coli Streptococcus agalactiae Gp. B Vitals: Vital Signs (12 hours) Temp Pulse Resp BP Pulse Ox 09/03/20 08:00 97.6 F 85 16 115/89 98 Weight Admit Weight 194 lb 0.096 oz Weight 194 lb 0.108 oz Physical Exam: The patient was seen and examined on the day of discharge. General Appearance: NAD, awake alert Eye: PERRL, anicteric sclera ENT: normocephalic atraumatic, no oropharyngeal lesions Neck: supple, symmetric, no JVD, no thyromegaly Respiratory: no wheezes, no rales, no ronchi Cardiovascular: RRR, no murmur, no gallops, no rubs Gastrointestinal: soft, non-tender, non-distended, normal bowel sounds Extremities - other findings: Wound with wound VAC Skin: normal turgor, no lesions Neurological: no focal deficits Musculoskeletal: normal tone, normal strength PSYCH: normal affect, normal behavior Problem (1) Amputated toe of right foot Code(s): S98.131A - COMPLETE TRAUMATIC AMPUTATION OF ONE RIGHT LESSER TOE, INIT Status: Acute (2) Cellulitis of left foot Code(s): L03.116 - CELLULITIS OF LEFT LOWER LIMB Status: Acute (3) Diabetic foot infection Code(s): E11.628 - TYPE 2 DIABETES MELLITUS WITH OTHER SKIN COMPLICATIONS; L08.9 - LOCAL INFECTION OF THE SKIN AND SUBCUTANEOUS TISSUE, UNSP Status: Acute (4) Osteomyelitis of left foot Code(s): M86.9 - OSTEOMYELITIS, UNSPECIFIED Status: Acute (5) Anemia, normocytic normochromic Code(s): D64.9 - ANEMIA, UNSPECIFIED Status: Chronic (6) CKD (chronic kidney disease) stage 3, GFR 30-59 ml/min Code(s): N18.3 - CHRONIC KIDNEY DISEASE, STAGE 3 (MODERATE) * DO NOT USE * Status: Chronic (7) DM2 (diabetes mellitus, type 2) Status: Chronic Qualifiers: Diabetes mellitus usp insulin use: with rodent exterminator use Diabetes mellitus complication detail: with polyneuropathy (8) Diabetic neuropathy Code(s): E11.40 - TYPE 2 DIABETES MELLITUS WITH DIABETIC NEUROPATHY, UNSP Status: Chronic Qualifiers: Diabetes mellitus type: type 2 (9) HTN (hypertension) Code(s): I10 - ESSENTIAL (PRIMARY) HYPERTENSION Status: Chronic Qualifiers: Plan Home Medications: Medication Instructions Recorded Confirmed Type HumuLIN 70/30 [HumuLIN 70/30 Vial] 40 units SC QPM 02/06/19 08/29/20 History HumuLIN 70/30 [HumuLIN 70/30 Vial] 60 units SC QAM 02/06/19 08/29/20 History Gabapentin [Neurontin] 900 mg PO TID 08/20/19 08/29/20 History traMADol HCl [Tramadol HCl] 50 mg PO TID PRN #40 tablet 04/20/20 08/29/20 Rx Allergies: ceftriaxone [From Rocephin] Adverse Reaction (Mild, Verified 08/29/20 16:22) Rash Can take if premedicated with benadryl Additional comments: after d/c pt to continue on Ertapenem (Invanz) 1 g iv daily + Ciprofloxacin 500 po bid end date = October 17 weekly cbc,crp,bmp Discharge Instructions:: after d/c pt to continue on Ertapenem (Invanz) 1 g iv daily + Ciprofloxacin 500 po bid end date = October 17 weekly cbc,crp,bmp Activity:: Activity as Tolerated Nourishment:: Diabetic Diet Therapies:: Home Health, Wound Care Equipment/Supplies:: Wound Care IV Therapy:: PICC Line Care Referrals: Gigi Vega MD [Active] - 3-4 Weeks [facility] [Primary Care Provider] - Disposition: HOME Quality CORE MEASURES:: N/A
== END 2020-09-03 12:00 | disposition home or self-care (01) | DRG 638 ==
LOC: ERS 17:09 → ERHOLD 21:27 → ONC 08-29 06:46
PROVIDERS: ADMIT Internal Medicine; ATTEND Internal Medicine
PROC: 02HV33Z Insertion of Infusion Device into Superior Vena Cava, Percutaneous Approach (ICD-10-PCS; principal; 2020-09-02)
PROC: B5181ZA Fluoroscopy of Superior Vena Cava using Low Osmolar Contrast, Guidance (ICD-10-PCS; 2020-09-02)
PROC: B548ZZA Ultrasonography of Superior Vena Cava, Guidance (ICD-10-PCS; 2020-09-02)
DX: E11.69 Type 2 diabetes mellitus with other specified complication (principal); M86.8X7 Other osteomyelitis, ankle and foot; Z68.41 Body mass index [BMI] 40.0-44.9, adult; L03.116 Cellulitis of left lower limb; Z16.29 Resistance to other single specified antibiotic; E66.01 Morbid (severe) obesity due to excess calories; N17.9 Acute kidney failure, unspecified; E11.65 Type 2 diabetes mellitus with hyperglycemia; E11.42 Type 2 diabetes mellitus with diabetic polyneuropathy; I12.9 Hypertensive chronic kidney disease with stage 1 through stage 4 chronic kidney disease, or unspecified chronic kidney disease; E11.22 Type 2 diabetes mellitus with diabetic chronic kidney disease; I95.9 Hypotension, unspecified; B95.5 Unspecified streptococcus as the cause of diseases classified elsewhere; D64.9 Anemia, unspecified; B96.20 Unspecified Escherichia coli [E. coli] as the cause of diseases classified elsewhere; N18.30 Chronic kidney disease, stage 3 unspecified; Z20.822 Contact with and (suspected) exposure to COVID-19; Z91.14 Patient's other noncompliance with medication regimen
CPT/HCPCS: 36415; 36416; 36569; 80048; 80053; 80202; 83605; 85007; 85025; 85027; 85652; 86140; 87070; 87077; 87186; 87205; 87635; 96365; 96367; 96375; C1751; J0692; J1650; J1815; J2270; J2405; J2543; J3010; J3370; J3490; U0003; U0005

== ENCOUNTER 2021-03-10 08:58 | Emergency (ER) | payer SELFPAY ==
[2021-03-10] MEDS ORDERED: HYDROcodone/Acetaminophen 5/325 mg Tablet ONE (11:10)
== END 2021-03-10 13:01 | disposition home or self-care (01) ==
LOC: ERS 08:58
DX: M79.605 Pain in left leg (principal); E11.40 Type 2 diabetes mellitus with diabetic neuropathy, unspecified; Z87.891 Personal history of nicotine dependence; Z79.4 Long term (current) use of insulin; Z79.899 Other long term (current) drug therapy; W19.XXXA Unspecified fall, initial encounter

== ENCOUNTER 2021-11-20 09:45 | Inpatient (IN) | payer SELFPAY ==
[~2021-11-20 09:45] MED LIST changes: -Heparin 1,000 UNITS/ML VIAL ONE; +Iopamidol-370 76% 500 ML 1 ML ONE
[2021-11-20 10:46] LABS: #Eosinphils 0.2 thou/uL (0.0-0.7); #Lymphocytes 3.2 thou/uL (1.20-3.40); #Monocytes 0.9 thou/uL (0.11-0.59); #Neutrophils 7.8 thou/uL (1.40-6.50); %Basophils 0.3 % (0.0-1.0); %Eosinophils 1.8 % (0.0-10.0); %Lymphocytes 26.1 % (21.0-51.0); %Monocytes 7.6 % (0.0-10.0); %Neutrophils 64.1 % (42.0-75.0); Hemoglobin 13.5 g/dL (12.0-16.0); Mean Corpuscular HGB CONC 32.3 g/dL (32.0-36.0); Mean Corpuscular Hemoglobin 28.4 pg (27.0-31.0); Mean Corpuscular Volume 87.9 fL (78.0-98.0); Mean Platelet Volume 9.6 fL (7.4-10.4); Platelet Count 188 thou/uL (130-400); RBC Distribution Width 12.7 % (11.5-14.5); Red Blood Cell (RBC) Count 4.75 mill/uL (4.20-5.40); White Blood Cell (WBC) Count 12.2 thou/uL (4.8-10.8)
[2021-11-20 11:07] LABS: Magnesium 2.2 mg/dL (1.6-2.6)
[2021-11-20 11:41] LABS: Albumin 3.5 g/dL (3.5-5.0)
[2021-11-20 11:42] LABS: Chloride 99 mmol/L (98-107); Sodium 136 mmol/L (136-145)
[2021-11-20 11:43] LABS: Glucose 256 mg/dL (70-105)
[2021-11-20 11:44] LABS: Globulin 4.1 g/dL (2.4-3.5); Protein, Total 7.6 g/dL (6.0-8.3)
[2021-11-20 11:45] LABS: Anion Gap 15 mmol/L (10-20); Bilirubin, Total 0.7 mg/dL (0.2-1.2); Carbon Dioxide 27 mmol/L (22-29)
[2021-11-20 11:46] LABS: Alkaline Phosphatase 114 U/L (40-110)
[2021-11-20 11:47] LABS: BUN (Urea Nitrogen) 44 mg/dL (7.0-18.7); Calc. Creatinine Clearance 0 mL/min (70-130)
[2021-11-20 11:48] LABS: AST (SGOT) 24 U/L (5-34)
[2021-11-20 11:49] LABS: ALT (SGPT) 21 U/L (8-55); Magnesium 2.3 mg/dL (1.6-2.6)
[2021-11-20] MEDS ORDERED: Midazolam HCl 2 mg/2 ml Vial ONE (12:18)
[2021-11-20 13:03] LABS: SARS-CoV-2 NAA Rapid Test Not Detected (NotDetected)
[2021-11-20 13:54] LABS: Bacteria/HPF 4+ HPF (None Seen); Bilirubin Negative (Negative); Blood, Urine Trace (Negative); Clarity Turbid (Clear); Glucose, Urine (Dipstick) 200 mg/dL (Negative); Ketone, Urine Negative (Negative); Leukocyte Negative Leu/uL (Negative); Nitrite 2+ (Negative); Protein, Urine (Dipstick) 100 mg/dL (Neg-Trace); RBC/HPF 0-3 HPF (0-3); Specific Gravity, Urine 1.023 (1.002-1.036); Squamous Epithelial 0-3 HPF (0-3); Urobilinogen Normal mg/dL (Less than 2); WBC/HPF 0-3 HPF (0-3)
[2021-11-20 14:15] LABS: Lactic Acid 0.9 mmol/L (0.5-2.2)
[2021-11-20 14:32] LABS: Troponin I Less than 0.010 ng/mL (< 0.028)
[2021-11-20] MEDS ORDERED: Dextrose 5% in Water 1,000 ML IV PRN (14:52)
[2021-11-20] MEDS ORDERED: Dextrose 50% Abboject 50 ML SYRINGE SLOW IVP PRN (14:52)
[2021-11-20] MEDS ORDERED: HumaLOG 300 UNITS/3 ML VIAL SC PRN ×2 (14:52)
[2021-11-20] MEDS ORDERED: Aspirin 325 MG TAB PO SCH (15:00)
[2021-11-20] MEDS: Benzonatate 100 MG CAP PO SCH ×2 (15:04→21:28)
[2021-11-20] MEDS: Heparin 5,000 UNITS/ML VIAL SC SCH ×2 (15:04→21:29)
[2021-11-20] MEDS ORDERED: Acetaminophen 325 MG TAB ONE (15:23)
[2021-11-20] MEDS: Acetaminophen 325 MG TAB PO PRN ×2 (15:27→21:23)
[2021-11-20] MEDS ORDERED: Azithromycin 500 MG in Sodium Chloride 0.9% 250 ML 250 ML IVPB SCH ×2 (16:00→21:00)
[2021-11-20 18:05] LABS: Hemoglobin A1c 13.7 % (4.0-6.0)
[2021-11-20 18:11] LABS: Troponin I Less than 0.010 ng/mL (< 0.028)
[2021-11-20] MEDS: Albuterol Sulfate 2.5 mg/3 ml Neb NEB SCH ×2 (18:13→22:01)
[2021-11-20 18:21] VITALS: BMI 36.3
[2021-11-20] MEDS: Sodium Chloride 0.9% 1,000 ML IV SCH (21:28)
[2021-11-20] MEDS: guaiFENesin/DM ER PO SCH (21:29)
[2021-11-20] MEDS ORDERED: traMADol HCl 50 MG TAB PO SCH (21:30)
[2021-11-21] MEDS: Albuterol Sulfate 2.5 mg/3 ml Neb NEB SCH ×2 (02:26→07:15)
[2021-11-21] MEDS: Acetaminophen 325 MG TAB PO PRN (06:41)
[2021-11-21] MEDS ORDERED: Sodium Chloride 0.65% Nasal 44 ML BOT EA NARE PRN (08:05)
[2021-11-21] MEDS: guaiFENesin/DM ER PO SCH (08:30)
[2021-11-21] MEDS: Benzonatate 100 MG CAP PO SCH (08:30)
[2021-11-21] MEDS: Sodium Chloride 0.9% 1,000 ML IV SCH (08:30)
[2021-11-21] MEDS: Heparin 5,000 UNITS/ML VIAL SC SCH (08:31)
[2021-11-21 08:45] LABS: #Eosinphils 0.2 thou/uL (0.0-0.7); #Lymphocytes 3.5 thou/uL (1.20-3.40); #Monocytes 0.8 thou/uL (0.11-0.59); #Neutrophils 3.2 thou/uL (1.40-6.50); %Eosinophils 2.4 % (0.0-10.0); %Lymphocytes 45.7 % (21.0-51.0); %Neutrophils 41.8 % (42.0-75.0); Hemoglobin 11.1 g/dL (12.0-16.0); Mean Corpuscular HGB CONC 31.6 g/dL (32.0-36.0); Mean Corpuscular Volume 88.9 fL (78.0-98.0); Mean Platelet Volume 8.8 fL (7.4-10.4); Platelet Count 180 thou/uL (130-400); RBC Distribution Width 12.7 % (11.5-14.5); Red Blood Cell (RBC) Count 3.95 mill/uL (4.20-5.40); White Blood Cell (WBC) Count 7.6 thou/uL (4.8-10.8)
[2021-11-21 08:58] LABS: ALT (SGPT) 21 U/L (8-55); AST (SGOT) 20 U/L (5-34); Albumin 2.9 g/dL (3.5-5.0); Alkaline Phosphatase 93 U/L (40-110); Anion Gap 12 mmol/L (10-20); BUN (Urea Nitrogen) 26 mg/dL (7.0-18.7); Bilirubin, Direct 0.1 mg/dL (0.1-0.3); Bilirubin, Total 0.4 mg/dL (0.2-1.2); Calc. Creatinine Clearance 91 mL/min (70-130); Calcium 8.2 mg/dL (7.8-10.44); Carbon Dioxide 24 mmol/L (22-29); Cardiac Risk 4.5 (Less than 4.5); Chloride 105 mmol/L (98-107); Cholesterol 148 mg/dl (< 200 Desired); Glucose 207 mg/dL (70-105); HDL Cholesterol 33 mg/dL (>60 Neg Risk); LDL Cholesterol, Calculated 65 mg/dL; Magnesium 1.9 mg/dL (1.6-2.6); Potassium 3.7 mmol/L (3.5-5.1); Protein, Total 6.3 g/dL (6.0-8.3); Sodium 137 mmol/L (136-145); Triglycerides 251 mg/dL (Less than 150)
[2021-11-21] MEDS ORDERED: NPH, Human Insulin Isophane 300 UNIT/3 ML VIAL SC SCH ×3 (09:00→21:00)
[2021-11-21] MEDS ORDERED: Saccharomyces boulardii 250 MG CAP PO SCH (09:00)
[2021-11-21] MEDS ORDERED: Aspirin Chewable 81 MG TAB PO SCH (09:00)
[2021-11-21] MEDS ORDERED: Lidocaine 5% Patch TD SCH (09:00)
[2021-11-21] MEDS ORDERED: Fluticasone Propionate Nasal Spray 16 gm Bottle NASAL SCH (09:00)
[2021-11-21] MEDS ORDERED: HYDROcodone/Acetaminophen 5/325 mg Tablet PO PRN (09:03)
[2021-11-21] MEDS ORDERED: Albuterol Sulfate 2.5 mg/3 ml Neb NEB PRN (09:33)
[2021-11-21] MEDS ORDERED: Albuterol 200 PUFF (6.7GM INHALER) INH SCH (10:30)
[2021-11-21 14:55] VITALS: BP 112/57; TEMP 98.9
[2021-11-21] MEDS ORDERED: Atorvastatin Calcium 40 MG TAB PO SCH (21:00)
[2021-11-21] MEDS ORDERED: Transdermal Patch Removal TOP SCH (21:00)
== END 2021-11-21 13:45 | disposition home or self-care (01) | DRG 194 ==
LOC: ERS 09:45 → ERHOLD 13:47 → 2NO 17:05
PROVIDERS: ADMIT Family Medicine; ATTEND Family Medicine
DX: J18.9 Pneumonia, unspecified organism (principal); J98.11 Atelectasis; N17.9 Acute kidney failure, unspecified; Z20.822 Contact with and (suspected) exposure to COVID-19; E86.0 Dehydration; N18.9 Chronic kidney disease, unspecified; E11.22 Type 2 diabetes mellitus with diabetic chronic kidney disease; F32.A Depression, unspecified; J02.9 Acute pharyngitis, unspecified; I95.89 Other hypotension; E11.40 Type 2 diabetes mellitus with diabetic neuropathy, unspecified; R07.81 Pleurodynia; Z87.891 Personal history of nicotine dependence; Z88.1 Allergy status to other antibiotic agents; Z79.899 Other long term (current) drug therapy; Z89.512 Acquired absence of left leg below knee; Z89.422 Acquired absence of other left toe(s)
CPT/HCPCS: 36415; 36416; 71045; 71275; 80048; 80053; 80061; 80076; 81003; 81015; 83036; 83605; 83735; 83880; 84443; 84484; 85025; 85379; 87040; 87086; 87149; 93005; 94640; J0456; J1644; J1815; J2250; J7050; J7611; Q9967

== ENCOUNTER 2021-11-24 03:31 | Observation (INO) | payer SELFPAY ==
[2021-11-24 05:16] LABS: #Eosinphils 0.1 thou/uL (0.0-0.7); #Monocytes 0.6 thou/uL (0.11-0.59); #Neutrophils 11.8 thou/uL (1.40-6.50); %Basophils 0.3 % (0.0-1.0); %Eosinophils 0.5 % (0.0-10.0); %Lymphocytes 19.4 % (21.0-51.0); %Monocytes 4.1 % (0.0-10.0); %Neutrophils 75.7 % (42.0-75.0); Hemoglobin 13.3 g/dL (12.0-16.0); Mean Corpuscular HGB CONC 33.3 g/dL (32.0-36.0); Mean Corpuscular Hemoglobin 29.4 pg (27.0-31.0); Mean Corpuscular Volume 88.3 fL (78.0-98.0); Mean Platelet Volume 8.3 fL (7.4-10.4); Platelet Count 234 thou/uL (130-400); RBC Distribution Width 13.3 % (11.5-14.5); Red Blood Cell (RBC) Count 4.53 mill/uL (4.20-5.40); White Blood Cell (WBC) Count 15.6 thou/uL (4.8-10.8)
[2021-11-24 05:32] LABS: ALT (SGPT) 27 U/L (8-55); AST (SGOT) 22 U/L (5-34); Albumin 3.5 g/dL (3.5-5.0); Alkaline Phosphatase 100 U/L (40-110); Anion Gap 16 mmol/L (10-20); BUN (Urea Nitrogen) 30 mg/dL (7.0-18.7); Calc. Creatinine Clearance 0 mL/min (70-130); Calcium 9.1 mg/dL (7.8-10.44); Carbon Dioxide 22 mmol/L (22-29); Chloride 105 mmol/L (98-107); Globulin 4.1 g/dL (2.4-3.5); Glucose 111 mg/dL (70-105); Potassium 4.1 mmol/L (3.5-5.1); Protein, Total 7.6 g/dL (6.0-8.3); Sodium 139 mmol/L (136-145)
[2021-11-24] MEDS ORDERED: Cefepime 2 GM VIAL ONE (06:10)
[2021-11-24] MEDS ORDERED: Vancomycin 1 GM/200 ML BAG ONE (06:10)
[2021-11-24 06:40] LABS: Bilirubin, Total 0.3 mg/dL (0.2-1.2)
[2021-11-24] MEDS ORDERED: HumaLOG 300 UNITS/3 ML VIAL SC PRN ×2 (08:07)
[2021-11-24] MEDS ORDERED: Dextrose 5% in Water 1,000 ML IV PRN (08:07)
[2021-11-24] MEDS ORDERED: Dextrose 50% Abboject 50 ML SYRINGE SLOW IVP PRN (08:07)
[2021-11-24] MEDS ORDERED: Acetaminophen 650 MG Suppository PR PRN (08:10)
[2021-11-24] MEDS ORDERED: Ondansetron ODT 4 MG TAB PO PRN (08:10)
[2021-11-24] MEDS ORDERED: Ondansetron PF 4 MG/2 ML Vial IVP PRN (08:10)
[2021-11-24] MEDS ORDERED: Acetaminophen 325 MG TAB PO PRN (08:10)
[2021-11-24] MEDS ORDERED: Senokot S 8.6-50 MG TAB PO PRN (08:10)
[2021-11-24] MEDS ORDERED: guaiFENesin 200 MG TAB PO PRN (08:15)
[2021-11-24] MEDS ORDERED: Azithromycin 500 MG in Sodium Chloride 0.9% 250 ML 250 ML IVPB SCH ×2 (09:00→21:00)
[2021-11-24 10:56] VITALS: BMI 36.3
[2021-11-24 12:20] LABS: Bacteria/HPF None Seen HPF (None Seen); Bilirubin Negative (Negative); Blood, Urine Negative (Negative); Clarity Clear (Clear); Glucose, Urine (Dipstick) 500 mg/dL (Negative); Ketone, Urine Negative (Negative); Leukocyte Negative Leu/uL (Negative); Nitrite Negative (Negative); Protein, Urine (Dipstick) 30 mg/dL (Neg-Trace); RBC/HPF 0-3 HPF (0-3); Specific Gravity, Urine 1.008 (1.002-1.036); Squamous Epithelial 0-3 HPF (0-3); Urobilinogen Normal mg/dL (Less than 2); WBC/HPF 0-3 HPF (0-3); pH, Urine 6.5 (5.0-9.0)
[2021-11-24 12:35] LABS: Legionella Urinary Ag Negative (Negative)
[2021-11-24 12:36] LABS: Strep pneumo Urine Ag NEGATIVE (NEGATIVE)
[2021-11-24 12:46] LABS: SARS-CoV-2 NAA Rapid Test Not Detected (NotDetected)
[2021-11-24] MEDS: Sodium Chloride 0.9% 1,000 ML IV SCH ×2 (13:06→17:44)
[2021-11-24] MEDS: Famotidine 20 MG TAB PO SCH ×2 (13:07→20:13)
[2021-11-24] MEDS: Enoxaparin Sodium 40 MG/0.4 ML SYRINGE SC SCH (13:07)
[2021-11-24] MEDS: Benzonatate 100 MG CAP PO PRN (13:08)
[2021-11-24] MEDS: Gabapentin 300 MG CAP PO SCH ×2 (15:12→20:12)
[2021-11-24] MEDS: Cefepime 1 GM in Sodium Chloride 0.9% 100 ML IVPB SCH (20:12)
[2021-11-24] MEDS: Albuterol Sulfate 2.5 mg/3 ml Neb NEB PRN (20:32)
[2021-11-24] MEDS ORDERED: HumuLIN 70/30 (300 UNITS/3 ML VIAL) SC SCH (21:00)
[2021-11-24] MEDS ORDERED: Atorvastatin Calcium 40 MG TAB PO SCH (21:00)
[2021-11-24] MEDS: Fluticasone Propionate Nasal Spray 16 gm Bottle NASAL SCH (21:51)
[2021-11-25] MEDS: Albuterol Sulfate 2.5 mg/3 ml Neb NEB PRN ×2 (00:54→07:58)
[2021-11-25] MEDS ORDERED: Ondansetron PF 4 MG/2 ML Vial IVP PRN (01:01)
[2021-11-25] MEDS: Benzonatate 100 MG CAP PO PRN (01:23)
[2021-11-25] MEDS: Sodium Chloride 0.9% 1,000 ML IV SCH ×2 (02:16→02:47)
[2021-11-25 04:57] LABS: #Eosinphils 0.2 thou/uL (0.0-0.7); #Lymphocytes 3.8 thou/uL (1.20-3.40); #Monocytes 0.6 thou/uL (0.11-0.59); #Neutrophils 5.7 thou/uL (1.40-6.50); %Eosinophils 1.5 % (0.0-10.0); %Lymphocytes 36.9 % (21.0-51.0); %Monocytes 5.5 % (0.0-10.0); %Neutrophils 56.2 % (42.0-75.0); Hemoglobin 11.1 g/dL (12.0-16.0); Mean Corpuscular HGB CONC 32.3 g/dL (32.0-36.0); Mean Corpuscular Hemoglobin 28.5 pg (27.0-31.0); Mean Corpuscular Volume 88.4 fL (78.0-98.0); Mean Platelet Volume 8.2 fL (7.4-10.4); Platelet Count 219 thou/uL (130-400); RBC Distribution Width 12.6 % (11.5-14.5); White Blood Cell (WBC) Count 10.2 thou/uL (4.8-10.8)
[2021-11-25 05:23] LABS: Anion Gap 11 mmol/L (10-20); BUN (Urea Nitrogen) 24 mg/dL (7.0-18.7); Calc. Creatinine Clearance 107 mL/min (70-130); Calcium 7.9 mg/dL (7.8-10.44); Carbon Dioxide 21 mmol/L (22-29); Chloride 113 mmol/L (98-107); Potassium 3.4 mmol/L (3.5-5.1); Sodium 142 mmol/L (136-145)
[2021-11-25 05:33] LABS: Critical Call Chemistry NUR.MM7@0533; Glucose 45 mg/dL (70-105)
[2021-11-25] MEDS: Enoxaparin Sodium 40 MG/0.4 ML SYRINGE SC SCH (07:51)
[2021-11-25] MEDS: Fluticasone Propionate Nasal Spray 16 gm Bottle NASAL SCH (07:51)
[2021-11-25] MEDS: Famotidine 20 MG TAB PO SCH (07:52)
[2021-11-25] MEDS: Cefepime 1 GM in Sodium Chloride 0.9% 100 ML IVPB SCH (07:52)
[2021-11-25] MEDS: Gabapentin 300 MG CAP PO SCH (08:01)
[2021-11-25 08:32] VITALS: BP 142/75; TEMP 97.5
[2021-11-25] MEDS ORDERED: Aspirin Chewable 81 MG TAB PO SCH (09:00)
[2021-11-25] MEDS ORDERED: Potassium Chloride 20 MEQ TAB PO SCH (10:15)
== END 2021-11-25 11:45 | disposition home or self-care (01) ==
LOC: ERS 03:31 → SUATTDRO 03:31 → 2SW 10:33
PROVIDERS: ADMIT Internal Medicine; ATTEND Internal Medicine
DX: E86.0 Dehydration (principal); N17.9 Acute kidney failure, unspecified; K58.0 Irritable bowel syndrome with diarrhea; E11.649 Type 2 diabetes mellitus with hypoglycemia without coma; E78.5 Hyperlipidemia, unspecified; E11.40 Type 2 diabetes mellitus with diabetic neuropathy, unspecified; I95.9 Hypotension, unspecified; Z87.891 Personal history of nicotine dependence; Z79.4 Long term (current) use of insulin; Z79.82 Long term (current) use of aspirin; Z79.899 Other long term (current) drug therapy; Z88.1 Allergy status to other antibiotic agents; Z89.421 Acquired absence of other right toe(s); Z89.512 Acquired absence of left leg below knee; Z20.822 Contact with and (suspected) exposure to COVID-19
CPT/HCPCS: 36415; 36416; 71045; 80048; 80053; 81001; 83605; 85025; 87040; 87449; 87899; 93005; 94640; 96365; 96366; 96367; 96372; 96376; G0378; J0456; J0692; J1650; J1815; J2405; J3370; J3490; J7050; J7611

== ENCOUNTER 2022-07-28 13:55 | Inpatient (IN) | payer SELFPAY ==
[2022-07-28] MEDS ORDERED: Lidocaine 1% w/Epinephrine 1:100K 20 ML VIAL ONE (15:23)
[2022-07-28] MEDS ORDERED: Ketorolac Tromethamine 30 MG/ML VIAL ONE (15:41)
[2022-07-28] MEDS ORDERED: VANCOMYCIN 1.75 GM/500 ML BAG 1.75 GM in Premix Bag 1 BAG IVPB SCH (16:00)
[2022-07-28] MEDS ORDERED: Acetaminophen 500 MG TAB ONE (16:17)
[2022-07-28] MEDS ORDERED: Piperacillin/Tazobactam 3.375 GM VIAL ONE (16:17)
[2022-07-28 17:21] LABS: Hemoglobin 11.6 g/dL (12.0-16.0); Mean Corpuscular HGB CONC 34.2 g/dL (32.0-36.0); Mean Corpuscular Hemoglobin 29.4 pg (27.0-31.0); Mean Corpuscular Volume 86.1 fl (78.0-98.0); Mean Platelet Volume 9.5 fL (7.4-10.4); Platelet Count 243 10x3/uL (130-400); RBC Distribution Width 11.7 % (11.5-14.5); Red Blood Cell (RBC) Count 3.94 mill/uL (4.20-5.40); White Blood Cell (WBC) Count 20.7 10x3/uL (4.8-10.8)
[2022-07-28 17:34] LABS: Band 3 % (5-11); Lymphocytes 9 % (21-51); MDiff Complete? YES; Monocytes 5 % (0-10); Neutrophil 82 % (42-75); Platelet Morphology Comment Appears Adequate; RBC Morphology Normal
[2022-07-28 18:20] LABS: Actual Bicarbonate (HCO3v) 23 mEq/L (22-28); Base Excess -1.9 mEq/L (-2.0 to +3.0); Calcium, Ionized (venous) 1.05 mmol/L (1.16-1.32); Chloride (VBG) 102 mmol/L (98-106); Hemoglobin (Hb) 12.2 g/dL (11.7-16.0); Potassium (VBG) 3.73 mmol/L (3.70-5.30); Sodium 129.4 mmol/L (133-146)
[2022-07-28 18:29] LABS: Albumin 2.6 g/dL (3.5-5.0)
[2022-07-28 18:30] LABS: Chloride 102 mmol/L (98-107); Potassium 3.8 mmol/L (3.5-5.1); Sodium 132 mmol/L (136-145)
[2022-07-28 18:31] LABS: Calcium 8.1 mg/dL (7.8-10.44)
[2022-07-28 18:32] LABS: Globulin 3.6 g/dL (2.4-3.5); Glucose 331 mg/dL (70-105); Protein, Total 6.2 g/dL (6.0-8.3)
[2022-07-28 18:33] LABS: Anion Gap 14 mmol/L (10-20); Bilirubin, Total 0.5 mg/dL (0.2-1.2); Carbon Dioxide 20 mmol/L (22-29)
[2022-07-28 18:34] LABS: Alkaline Phosphatase 94 U/L (40-110)
[2022-07-28 18:35] LABS: Calc. Creatinine Clearance 0 mL/min (70-130); Estimated GFR 45
[2022-07-28 18:36] LABS: BUN (Urea Nitrogen) 33 mg/dL (7.0-18.7)
[2022-07-28 18:37] LABS: ALT (SGPT) 10 U/L (8-55); AST (SGOT) 7 U/L (5-34)
[2022-07-28] MEDS ORDERED: Gabapentin 300 MG CAP PO SCH (19:45)
[2022-07-28] MEDS ORDERED: guaiFENesin/DM ER PO PRN (20:42)
[2022-07-28] MEDS ORDERED: Senokot S 8.6-50 MG TAB PO PRN (20:44)
[2022-07-28] MEDS ORDERED: Ondansetron ODT 4 MG TAB PO PRN (20:44)
[2022-07-28] MEDS ORDERED: Calcium Carbonate 500 MG ChewTAB PO PRN (20:44)
[2022-07-28 21:14] LABS: Hemoglobin A1c 11.7 % (4.0-6.0)
[2022-07-28 22:59] VITALS: BMI 35.9
[2022-07-29] MEDS ORDERED: Famotidine 20 MG TAB ONE (00:10)
[2022-07-29] MEDS ORDERED: Insulin Regular 300 UNITS/3 ML VIAL ONE (00:10)
[2022-07-29] MEDS ORDERED: Loperamide HCl 2 MG CAP ONE ×2 (00:10→09:08)
[2022-07-29] MEDS ORDERED: Piperacillin/Tazobactam 3.375 GM VIAL ONE ×2 (00:10→14:59)
[2022-07-29] MEDS: Gabapentin 300 MG CAP PO SCH ×4 (00:14→21:39)
[2022-07-29] MEDS: Piperacillin/Tazobactam 3.375 GM in Sodium Chloride 0.9% 100 ML IVPB SCH ×4 (00:14→23:45)
[2022-07-29] MEDS: Famotidine 20 MG TAB PO SCH ×2 (00:24→21:38)
[2022-07-29] MEDS: Fluticasone Propionate Nasal Spray 16 gm Bottle NASAL SCH ×3 (00:24→21:39)
[2022-07-29] MEDS: HumuLIN 70/30 (300 UNITS/3 ML VIAL) SC SCH ×2 (00:24→21:40)
[2022-07-29] MEDS: Atorvastatin Calcium 40 MG TAB PO SCH ×2 (00:24→21:39)
[2022-07-29 05:36] LABS: Anion Gap 14 mmol/L (10-20); BUN (Urea Nitrogen) 37 mg/dL (7.0-18.7); Calc. Creatinine Clearance 49 mL/min (70-130); Carbon Dioxide 19 mmol/L (22-29); Chloride 106 mmol/L (98-107); Estimated GFR 33; Glucose 155 mg/dL (70-105); Potassium 3.6 mmol/L (3.5-5.1); Sodium 135 mmol/L (136-145)
[2022-07-29 06:26] LABS: #Eosinphils 0.4 thou/uL (0.0-0.7); #Lymphocytes 4.1 thou/uL (1.20-3.40); #Monocytes 1.1 thou/uL (0.11-0.59); #Neutrophils 8.3 thou/uL (1.40-6.50); %Basophils 0.2 % (0.0-1.0); %Eosinophils 2.7 % (0.0-10.0); %Lymphocytes 29.6 % (21.0-51.0); %Monocytes 7.7 % (0.0-10.0); %Neutrophils 59.8 % (42.0-75.0); Band 1 % (5-11); Eosinophils 3 % (0-10); Hemoglobin 10.5 g/dL (12.0-16.0); Lymphocytes 21 % (21-51); MDiff Complete? YES; Mean Corpuscular HGB CONC 33.2 g/dL (32.0-36.0); Mean Corpuscular Hemoglobin 29.1 pg (27.0-31.0); Mean Corpuscular Volume 87.7 fl (78.0-98.0); Monocytes 5 % (0-10); Neutrophil 69 % (42-75); Platelet Count 227 10x3/uL (130-400); Platelet Morphology Comment Appears Adequate; RBC Distribution Width 11.6 % (11.5-14.5); RBC Morphology Normal; Reactive Lymphocytes 1 % (0-10); White Blood Cell (WBC) Count 13.9 10x3/uL (4.8-10.8)
[2022-07-29] MEDS ORDERED: Dextrose 50% Abboject 50 ML SYRINGE SLOW IVP PRN (07:57)
[2022-07-29] MEDS ORDERED: HumaLOG 300 UNITS/3 ML VIAL SC PRN (07:57)
[2022-07-29] MEDS ORDERED: Dextrose 5% in Water 1,000 ML IV PRN (07:57)
[2022-07-29 08:10] LABS: SARS-CoV-2 NAA Rapid Test Not Detected (NotDetected)
[2022-07-29] MEDS ORDERED: Vancomycin 1.5 GRAM/300 ML BAG IVPB SCH (09:00)
[2022-07-29] MEDS ORDERED: HYDROcodone/Acetaminophen 5/325 mg Tablet ONE (09:08)
[2022-07-29] MEDS ORDERED: Ondansetron ODT 4 MG TAB ONE (09:08)
[2022-07-29] MEDS: HYDROcodone/Acetaminophen 5/325 mg Tablet PO PRN (09:10)
[2022-07-29] MEDS: Sodium Chloride 0.9% 1,000 ML IV SCH ×2 (09:10→23:53)
[2022-07-29] MEDS: Loperamide HCl 2 MG CAP PO PRN (09:11)
[2022-07-29] MEDS ORDERED: Nystatin Powder 15 GM BOT TOP PRN (09:55)
[2022-07-29] MEDS ORDERED: VANCOMYCIN 1.25 GM/250 ML BAG 1.25 GM in Premix Bag 1 BAG IVPB SCH (18:00)
[2022-07-29] MEDS ORDERED: FLU VACC QS2022-23(6MOS UP)/PF 60 MCG/0.5 ML SYRINGE IM ONE (18:15)
[2022-07-30] MEDS: Loperamide HCl 2 MG CAP PO PRN (03:55)
[2022-07-30] MEDS: HumaLOG 300 UNITS/3 ML VIAL SC PRN ×2 (06:02→11:29)
[2022-07-30] MEDS: Piperacillin/Tazobactam 3.375 GM in Sodium Chloride 0.9% 100 ML IVPB SCH ×3 (06:03→21:09)
[2022-07-30] MEDS: Fluticasone Propionate Nasal Spray 16 gm Bottle NASAL SCH ×2 (09:03→21:09)
[2022-07-30] MEDS: Gabapentin 300 MG CAP PO SCH ×3 (09:04→21:08)
[2022-07-30] MEDS: HYDROcodone/Acetaminophen 5/325 mg Tablet PO PRN ×3 (09:07→21:16)
[2022-07-30 13:50] LABS: Campy jejuni + coli by PCR Negative (Negative); STEC Shiga Toxin 1+2 Negative (Negative); Salmonella spp. by PCR Negative (Negative); Shigella spp + EIEC by PCR Negative (Negative)
[2022-07-30 17:38] LABS: Vancomycin, Trough 21.4 ug/mL
[2022-07-30] MEDS: Atorvastatin Calcium 40 MG TAB PO SCH (21:08)
[2022-07-30] MEDS: Famotidine 20 MG TAB PO SCH (21:08)
[2022-07-30] MEDS: HumuLIN 70/30 (300 UNITS/3 ML VIAL) SC SCH (21:09)
[2022-07-31] MEDS: HYDROcodone/Acetaminophen 5/325 mg Tablet PO PRN ×2 (01:58→08:34)
[2022-07-31] MEDS: HumaLOG 300 UNITS/3 ML VIAL SC PRN (04:37)
[2022-07-31] MEDS: Piperacillin/Tazobactam 3.375 GM in Sodium Chloride 0.9% 100 ML IVPB SCH (04:44)
[2022-07-31 07:28] LABS: #Basophils 0.1 thou/uL (0.0-0.2); #Eosinphils 0.5 thou/uL (0.0-0.7); #Lymphocytes 4.3 thou/uL (1.20-3.40); #Monocytes 0.6 thou/uL (0.11-0.59); #Neutrophils 7.5 thou/uL (1.40-6.50); %Basophils 0.5 % (0.0-1.0); %Lymphocytes 32.9 % (21.0-51.0); %Neutrophils 57.6 % (42.0-75.0); Hemoglobin 10.7 g/dL (12.0-16.0); Mean Corpuscular HGB CONC 32.6 g/dL (32.0-36.0); Mean Corpuscular Hemoglobin 28.9 pg (27.0-31.0); Mean Corpuscular Volume 88.7 fl (78.0-98.0); Mean Platelet Volume 9.4 fL (7.4-10.4); Platelet Count 284 10x3/uL (130-400); RBC Distribution Width 11.8 % (11.5-14.5); White Blood Cell (WBC) Count 12.9 10x3/uL (4.8-10.8)
[2022-07-31 07:52] LABS: Anion Gap 11 mmol/L (10-20); BUN (Urea Nitrogen) 24 mg/dL (7.0-18.7); Calc. Creatinine Clearance 55 mL/min (70-130); Calcium 8.6 mg/dL (7.8-10.44); Carbon Dioxide 24 mmol/L (22-29); Chloride 108 mmol/L (98-107); Estimated GFR 39; Glucose 220 mg/dL (70-105); Potassium 4.5 mmol/L (3.5-5.1); Sodium 138 mmol/L (136-145)
[2022-07-31] MEDS ORDERED: Glimepiride 1 MG TAB PO SCH (08:00)
[2022-07-31] MEDS: Gabapentin 300 MG CAP PO SCH (08:30)
[2022-07-31] MEDS: Fluticasone Propionate Nasal Spray 16 gm Bottle NASAL SCH (08:31)
[2022-07-31 10:28] VITALS: BP 151/71; TEMP 97.6
[2022-08-02 09:38] LABS: Norovirus GI Negative (Negative); Norovirus GII Negative (Negative)
== END 2022-07-31 10:30 | disposition home or self-care (01) | DRG 872 ==
LOC: ERS 13:55 → ERHOLD 20:00 → 2NO 07-29 16:55 → T4-A 07-30 18:44
PROVIDERS: ADMIT Internal Medicine; ATTEND Internal Medicine
DX: A40.1 Sepsis due to streptococcus, group B (principal); L02.415 Cutaneous abscess of right lower limb; N17.9 Acute kidney failure, unspecified; E87.1 Hypo-osmolality and hyponatremia; R65.20 Severe sepsis without septic shock; Z20.822 Contact with and (suspected) exposure to COVID-19; E11.65 Type 2 diabetes mellitus with hyperglycemia; E11.40 Type 2 diabetes mellitus with diabetic neuropathy, unspecified; F32.A Depression, unspecified; R19.7 Diarrhea, unspecified; Z28.21 Immunization not carried out because of patient refusal; Z88.1 Allergy status to other antibiotic agents; Z79.899 Other long term (current) drug therapy; Z79.4 Long term (current) use of insulin; Z79.82 Long term (current) use of aspirin; Z79.51 Long term (current) use of inhaled steroids; Z87.891 Personal history of nicotine dependence; Z89.512 Acquired absence of left leg below knee; Z83.3 Family history of diabetes mellitus
CPT/HCPCS: 36415; 36416; 80048; 80053; 80202; 82010; 82805; 83036; 83605; 83630; 85025; 87015; 87040; 87070; 87077; 87186; 87205; 87206; 87324; 87449; 87505; 87798; 97139; J1650; J1815; J1885; J2543; J3370; J3490; J7050; Q0162

== ENCOUNTER 2023-05-11 12:34 | Inpatient (IN) | payer SELFPAY ==
[2023-05-11] MEDS ORDERED: Ibuprofen 200 MG TAB ONE (13:20)
[2023-05-11 14:59] LABS: #Basophils 0.1 thou/uL (0.0-0.2); #Eosinphils 0.2 thou/uL (0.0-0.7); #Monocytes 1.3 thou/uL (0.11-0.59); %Basophils 0.6 % (0.0-1.0); %Eosinophils 1.2 % (0.0-10.0); %Lymphocytes 19.7 % (21.0-51.0); %Monocytes 6.5 % (0.0-10.0); %Neutrophils 71.6 % (42.0-75.0); Hematocrit 34.2 % (36.0-47.0); Mean Corpuscular HGB CONC 32.2 g/dL (32.0-36.0); Mean Corpuscular Hemoglobin 28.8 pg (27.0-31.0); Mean Corpuscular Volume 89.5 fl (78.0-98.0); Platelet Count 233 10x3/uL (130-400); RBC Distribution Width 12.7 % (11.5-14.5); Red Blood Cell (RBC) Count 3.82 mill/uL (4.20-5.40); White Blood Cell (WBC) Count 19.5 10x3/uL (4.8-10.8)
[2023-05-11 15:22] LABS: ALT (SGPT) 18 U/L (8-55); AST (SGOT) 13 U/L (5-34); Albumin 3.5 g/dL (3.5-5.0); Alkaline Phosphatase 104 U/L (40-110); Anion Gap 14 mmol/L (10-20); BUN (Urea Nitrogen) 50 mg/dL (9.8-20.1); Bilirubin, Total Less than 0.2 mg/dL (0.2-1.2); Calc. Creatinine Clearance 0 mL/min (70-130); Calcium 9.1 mg/dL (7.8-10.44); Carbon Dioxide 22 mmol/L (22-29); Chloride 102 mmol/L (98-107); Estimated GFR 29; Globulin 3.6 g/dL (2.4-3.5); Glucose 266 mg/dL (70-105); Potassium 4.9 mmol/L (3.5-5.1); Protein, Total 7.1 g/dL (6.0-8.3); Sodium 133 mmol/L (136-145)
[2023-05-11 15:24] LABS: Bacteria/HPF 4+ HPF (None Seen); Bilirubin Negative (Negative); Blood, Urine 1+ (Negative); CAUTI Indications for Culture Dysuria,urgency,freq; Clarity Turbid (Clear); Glucose, Urine (Dipstick) 300 mg/dL (Negative); Ketone, Urine Negative (Negative); Leukocyte Negative Leu/uL (Negative); Nitrite Negative (Negative); Protein, Urine (Dipstick) 300 mg/dL (Neg-Trace); RBC/HPF 0-3 HPF (0-3); Specific Gravity, Urine 1.021 (1.002-1.036); Squamous Epithelial 0-3 HPF (0-3); Urobilinogen Normal mg/dL (Less than 2)
[2023-05-11 15:35] LABS: Urine Culture Reflex No No
[2023-05-11] MEDS ORDERED: HumaLOG 300 UNITS/3 ML VIAL SC PRN (19:10)
[2023-05-11] MEDS ORDERED: Dextrose 50% Abboject 50 ML SYRINGE SLOW IVP PRN (19:10)
[2023-05-11] MEDS ORDERED: Ondansetron PF 4 MG/2 ML Vial IVP PRN (19:10)
[2023-05-11] MEDS ORDERED: Glucagon 1 MG/ML KIT IM PRN (19:10)
[2023-05-11] MEDS ORDERED: Dextrose 5% in Water 1,000 ML IV PRN (19:10)
[2023-05-11] MEDS ORDERED: Sodium Chloride 0.9% 1,000 ML IV SCH (19:15)
[2023-05-11] MEDS ORDERED: Sodium Chloride 0.9% 100 ML ONE (19:36)
[2023-05-11] MEDS ORDERED: Ampicillin/Sulbactam 3 GM VIAL ONE (19:36)
[2023-05-11] MEDS: Heparin 5,000 UNITS/ML VIAL SC SCH (21:11)
[2023-05-11] MEDS: HYDROcodone/Acetaminophen 5/325 mg Tablet PO PRN (23:12)
[2023-05-11] MEDS ORDERED: Atorvastatin Calcium 20 MG TAB PO SCH (23:30)
[2023-05-12] MEDS ORDERED: Ampicillin/Sulbactam 3 GM in Sodium Chloride 0.9% 100 ML IVPB SCH (02:00)
[2023-05-12] MEDS: HYDROcodone/Acetaminophen 5/325 mg Tablet PO PRN ×3 (04:22→18:06)
[2023-05-12 05:40] LABS: Hemoglobin 10.8 g/dL (12.0-16.0); Mean Corpuscular HGB CONC 30.9 g/dL (32.0-36.0); Mean Corpuscular Hemoglobin 28.2 pg (27.0-31.0); Mean Corpuscular Volume 91.4 fl (78.0-98.0); Mean Platelet Volume 10.9 fL (7.4-10.4); Platelet Count 231 10x3/uL (130-400); Red Blood Cell (RBC) Count 3.83 mill/uL (4.20-5.40); White Blood Cell (WBC) Count 13.5 10x3/uL (4.8-10.8)
[2023-05-12 05:41] LABS: Manual Diff?? YES
[2023-05-12 05:42] LABS: Delete Auto Diff?? YES
[2023-05-12 05:57] LABS: Hemoglobin A1c 10.2 % (4.0-6.0)
[2023-05-12 06:06] LABS: CellaVision Operator ID lab.abc; Eosinophils 4 % (0-10); Lymphocytes 30 % (21-51); Monocytes 5 % (0-10); Neutrophil 60 % (42-75); Platelet Adequacy Comment Platelets Normal; RBC Morphology Within Normal Limits; Smudge Cells 7.9 %; Total Cell Count 101
[2023-05-12 06:11] LABS: Anion Gap 14 mmol/L (10-20); BUN (Urea Nitrogen) 53 mg/dL (9.8-20.1); Calc. Creatinine Clearance 43 mL/min (70-130); Carbon Dioxide 24 mmol/L (22-29); Chloride 105 mmol/L (98-107); Estimated GFR 29; Glucose 179 mg/dL (70-105); Potassium 4.5 mmol/L (3.5-5.1); Sodium 138 mmol/L (136-145)
[2023-05-12] MEDS: Gabapentin 300 MG CAP PO SCH ×3 (08:53→20:40)
[2023-05-12] MEDS: Heparin 5,000 UNITS/ML VIAL SC SCH ×3 (08:54→20:42)
[2023-05-12] MEDS: PARoxetine 20 MG TAB PO SCH (08:54)
[2023-05-12] MEDS: Ampicillin/Sulbactam 1.5 GM in Sodium Chloride 0.9% 100 ML IVPB SCH ×3 (08:55→20:39)
[2023-05-12] MEDS ORDERED: FLU VACC QS2023-24(6MOS UP)/PF 60 MCG/0.5 ML SYRINGE IM ONE (09:00)
[2023-05-12] MEDS: HumuLIN 70/30 (300 UNITS/3 ML VIAL) SC SCH ×2 (09:15→21:00)
[2023-05-12] MEDS: HumaLOG 300 UNITS/3 ML VIAL SC PRN ×2 (12:49→20:42)
[2023-05-12] MEDS: Lactated Ringer's 1,000 ML IV SCH (12:50)
[2023-05-12] MEDS: Albuterol 200 PUFF (6.7GM INHALER) INH PRN (19:56)
[2023-05-12] MEDS: Atorvastatin Calcium 20 MG TAB PO SCH (20:40)
[2023-05-12 23:18] VITALS: BMI 34.5
[2023-05-13] MEDS: Ampicillin/Sulbactam 1.5 GM in Sodium Chloride 0.9% 100 ML IVPB SCH ×4 (03:00→21:13)
[2023-05-13] MEDS: Lactated Ringer's 1,000 ML IV SCH (03:30)
[2023-05-13] MEDS ORDERED: Metoclopramide HCl 10 MG/2 ML VIAL IVP SCH (03:30)
[2023-05-13] MEDS ORDERED: Loperamide HCl 2 MG CAP PO SCH (03:30)
[2023-05-13 06:37] LABS: #Basophils 0.1 thou/uL (0.0-0.2); #Eosinphils 0.5 thou/uL (0.0-0.7); #Monocytes 1.1 thou/uL (0.11-0.59); #Neutrophils 8.2 thou/uL (1.40-6.50); %Basophils 0.6 % (0.0-1.0); %Eosinophils 3.4 % (0.0-10.0); %Monocytes 7.7 % (0.0-10.0); %Neutrophils 59.9 % (42.0-75.0); Hematocrit 29.7 % (36.0-47.0); Hemoglobin 9.3 g/dL (12.0-16.0); Mean Corpuscular HGB CONC 31.3 g/dL (32.0-36.0); Mean Corpuscular Hemoglobin 27.9 pg (27.0-31.0); Mean Corpuscular Volume 89.2 fl (78.0-98.0); Mean Platelet Volume 11.2 fL (7.4-10.4); Platelet Count 222 10x3/uL (130-400); RBC Distribution Width 12.8 % (11.5-14.5); Red Blood Cell (RBC) Count 3.33 mill/uL (4.20-5.40); White Blood Cell (WBC) Count 13.6 10x3/uL (4.8-10.8)
[2023-05-13 07:01] LABS: Anion Gap 9 mmol/L (10-20); BUN (Urea Nitrogen) 43 mg/dL (9.8-20.1); Calc. Creatinine Clearance 61 mL/min (70-130); Calcium 8.5 mg/dL (7.8-10.44); Carbon Dioxide 26 mmol/L (22-29); Chloride 105 mmol/L (98-107); Estimated GFR 44; Glucose 65 mg/dL (70-105); Potassium 4.3 mmol/L (3.5-5.1); Sodium 136 mmol/L (136-145)
[2023-05-13] MEDS: Saccharomyces boulardii 250 MG CAP PO SCH (08:46)
[2023-05-13] MEDS: PARoxetine 20 MG TAB PO SCH (08:46)
[2023-05-13] MEDS: Gabapentin 300 MG CAP PO SCH ×3 (08:46→21:14)
[2023-05-13] MEDS: Heparin 5,000 UNITS/ML VIAL SC SCH ×3 (08:46→21:14)
[2023-05-13] MEDS: HYDROcodone/Acetaminophen 5/325 mg Tablet PO PRN ×2 (08:57→18:42)
[2023-05-13] MEDS: HumuLIN 70/30 (300 UNITS/3 ML VIAL) SC SCH ×2 (10:56→21:08)
[2023-05-13] MEDS: Albuterol 200 PUFF (6.7GM INHALER) INH PRN (19:03)
[2023-05-13] MEDS: Atorvastatin Calcium 20 MG TAB PO SCH (21:14)
[2023-05-14] MEDS: Ampicillin/Sulbactam 1.5 GM in Sodium Chloride 0.9% 100 ML IVPB SCH ×5 (02:25→20:47)
[2023-05-14] MEDS: HYDROcodone/Acetaminophen 5/325 mg Tablet PO PRN ×3 (04:18→16:12)
[2023-05-14 06:10] LABS: #Basophils 0.1 thou/uL (0.0-0.2); #Eosinphils 0.4 thou/uL (0.0-0.7); #Monocytes 1.2 thou/uL (0.11-0.59); #Neutrophils 8.8 thou/uL (1.40-6.50); %Basophils 0.6 % (0.0-1.0); %Eosinophils 3.1 % (0.0-10.0); %Lymphocytes 25.7 % (21.0-51.0); %Monocytes 8.2 % (0.0-10.0); Hematocrit 30.7 % (36.0-47.0); Hemoglobin 9.6 g/dL (12.0-16.0); Mean Corpuscular HGB CONC 31.3 g/dL (32.0-36.0); Mean Corpuscular Hemoglobin 27.9 pg (27.0-31.0); Mean Corpuscular Volume 89.2 fl (78.0-98.0); Mean Platelet Volume 11.5 fL (7.4-10.4); Platelet Count 243 10x3/uL (130-400); RBC Distribution Width 12.8 % (11.5-14.5); Red Blood Cell (RBC) Count 3.44 mill/uL (4.20-5.40); White Blood Cell (WBC) Count 14.3 10x3/uL (4.8-10.8)
[2023-05-14 06:32] LABS: Anion Gap 11 mmol/L (10-20); BUN (Urea Nitrogen) 36 mg/dL (9.8-20.1); Calc. Creatinine Clearance 62 mL/min (70-130); Calcium 8.4 mg/dL (7.8-10.44); Carbon Dioxide 25 mmol/L (22-29); Chloride 105 mmol/L (98-107); Estimated GFR 45; Glucose 172 mg/dL (70-105); Potassium 4.3 mmol/L (3.5-5.1); Sodium 137 mmol/L (136-145)
[2023-05-14] MEDS: Gabapentin 300 MG CAP PO SCH ×3 (08:21→20:48)
[2023-05-14] MEDS: Saccharomyces boulardii 250 MG CAP PO SCH (08:21)
[2023-05-14] MEDS: PARoxetine 20 MG TAB PO SCH (08:21)
[2023-05-14] MEDS: Heparin 5,000 UNITS/ML VIAL SC SCH ×3 (08:26→20:48)
[2023-05-14] MEDS: HumuLIN 70/30 (300 UNITS/3 ML VIAL) SC SCH ×2 (08:41→20:51)
[2023-05-14] MEDS: HumaLOG 300 UNITS/3 ML VIAL SC PRN (12:03)
[2023-05-14] MEDS: Atorvastatin Calcium 20 MG TAB PO SCH (20:48)
[2023-05-15] MEDS: Ampicillin/Sulbactam 1.5 GM in Sodium Chloride 0.9% 100 ML IVPB SCH ×4 (01:19→20:31)
[2023-05-15] MEDS: HYDROcodone/Acetaminophen 5/325 mg Tablet PO PRN ×2 (03:47→13:53)
[2023-05-15 05:47] LABS: Hematocrit 27.6 % (36.0-47.0); Hemoglobin 8.6 g/dL (12.0-16.0); Mean Corpuscular HGB CONC 31.2 g/dL (32.0-36.0); Mean Corpuscular Hemoglobin 27.9 pg (27.0-31.0); Mean Corpuscular Volume 89.6 fl (78.0-98.0); Mean Platelet Volume 10.6 fL (7.4-10.4); Platelet Count 236 10x3/uL (130-400); RBC Distribution Width 12.7 % (11.5-14.5); Red Blood Cell (RBC) Count 3.08 mill/uL (4.20-5.40); White Blood Cell (WBC) Count 14.4 10x3/uL (4.8-10.8)
[2023-05-15 06:11] LABS: Delete Auto Diff?? YES; Manual Diff?? YES
[2023-05-15 07:40] LABS: Band 2 % (5-11); CellaVision Operator ID LAB.GE; Eosinophils 4 % (0-10); Lymphocytes 21 % (21-51); Monocytes 5 % (0-10); Neutrophil 68 % (42-75); Platelet Adequacy Comment Platelets Normal; Polychromasia SLIGHT = 2-3 cells HPF (0-2); Total Cell Count 100
[2023-05-15 08:02] LABS: Anion Gap 13 mmol/L (10-20); BUN (Urea Nitrogen) 32 mg/dL (9.8-20.1); Calc. Creatinine Clearance 59 mL/min (70-130); Calcium 8.8 mg/dL (7.8-10.44); Carbon Dioxide 26 mmol/L (22-29); Chloride 104 mmol/L (98-107); Estimated GFR 42; Glucose 118 mg/dL (70-105); Potassium 4.5 mmol/L (3.5-5.1); Sodium 138 mmol/L (136-145)
[2023-05-15] MEDS: PARoxetine 20 MG TAB PO SCH (09:01)
[2023-05-15] MEDS: Saccharomyces boulardii 250 MG CAP PO SCH (09:01)
[2023-05-15] MEDS: Heparin 5,000 UNITS/ML VIAL SC SCH ×3 (09:01→20:30)
[2023-05-15] MEDS: Gabapentin 300 MG CAP PO SCH ×3 (09:01→20:30)
[2023-05-15] MEDS: HumuLIN 70/30 (300 UNITS/3 ML VIAL) SC SCH ×2 (09:01→20:31)
[2023-05-15] MEDS: HumaLOG 300 UNITS/3 ML VIAL SC PRN (13:46)
[2023-05-15] MEDS: Atorvastatin Calcium 20 MG TAB PO SCH (20:30)
[2023-05-16] MEDS: Ampicillin/Sulbactam 1.5 GM in Sodium Chloride 0.9% 100 ML IVPB SCH ×4 (02:11→20:41)
[2023-05-16] MEDS: HYDROcodone/Acetaminophen 5/325 mg Tablet PO PRN ×2 (02:18→17:28)
[2023-05-16] MEDS: Ciprofloxacin 500 MG TAB PO SCH ×2 (05:09→20:44)
[2023-05-16 05:21] LABS: #Basophils 0.1 thou/uL (0.0-0.2); #Eosinphils 0.5 thou/uL (0.0-0.7); #Monocytes 0.9 thou/uL (0.11-0.59); #Neutrophils 9.4 thou/uL (1.40-6.50); %Basophils 0.6 % (0.0-1.0); %Eosinophils 3.6 % (0.0-10.0); %Monocytes 6.6 % (0.0-10.0); %Neutrophils 65.8 % (42.0-75.0); Hematocrit 28.2 % (36.0-47.0); Hemoglobin 8.9 g/dL (12.0-16.0); Mean Corpuscular HGB CONC 31.6 g/dL (32.0-36.0); Mean Corpuscular Hemoglobin 28.4 pg (27.0-31.0); Mean Corpuscular Volume 90.1 fl (78.0-98.0); Mean Platelet Volume 10.8 fL (7.4-10.4); Platelet Count 258 10x3/uL (130-400); RBC Distribution Width 12.5 % (11.5-14.5); Red Blood Cell (RBC) Count 3.13 mill/uL (4.20-5.40); White Blood Cell (WBC) Count 14.3 10x3/uL (4.8-10.8)
[2023-05-16 05:50] LABS: Anion Gap 13 mmol/L (10-20); BUN (Urea Nitrogen) 33 mg/dL (9.8-20.1); Calc. Creatinine Clearance 56 mL/min (70-130); Calcium 8.7 mg/dL (7.8-10.44); Carbon Dioxide 25 mmol/L (22-29); Chloride 105 mmol/L (98-107); Estimated GFR 40; Glucose 167 mg/dL (70-105); Potassium 4.5 mmol/L (3.5-5.1); Sodium 138 mmol/L (136-145)
[2023-05-16] MEDS: PARoxetine 20 MG TAB PO SCH (09:19)
[2023-05-16] MEDS: Gabapentin 300 MG CAP PO SCH ×3 (09:19→20:44)
[2023-05-16] MEDS: HumuLIN 70/30 (300 UNITS/3 ML VIAL) SC SCH ×2 (09:20→22:06)
[2023-05-16] MEDS: Heparin 5,000 UNITS/ML VIAL SC SCH ×3 (09:20→20:46)
[2023-05-16] MEDS: Saccharomyces boulardii 250 MG CAP PO SCH (09:20)
[2023-05-16] MEDS: Acetaminophen 325 MG TAB PO PRN (14:51)
[2023-05-16] MEDS ORDERED: Lidocaine 4% Patch TD SCH (17:15)
[2023-05-16] MEDS: Lidocaine 4% Patch TD SCH (18:03)
[2023-05-16] MEDS: Amlodipine 5 MG TAB PO SCH (20:43)
[2023-05-16] MEDS: Atorvastatin Calcium 20 MG TAB PO SCH (20:44)
[2023-05-17] MEDS: Ampicillin/Sulbactam 1.5 GM in Sodium Chloride 0.9% 100 ML IVPB SCH ×4 (04:07→20:33)
[2023-05-17] MEDS: Ciprofloxacin 500 MG TAB PO SCH ×2 (05:37→20:39)
[2023-05-17] MEDS: Transdermal Patch Removal TOP SCH (06:00)
[2023-05-17] MEDS: PARoxetine 20 MG TAB PO SCH (08:11)
[2023-05-17] MEDS: Gabapentin 300 MG CAP PO SCH ×3 (08:11→20:40)
[2023-05-17] MEDS: Saccharomyces boulardii 250 MG CAP PO SCH (08:11)
[2023-05-17] MEDS: Heparin 5,000 UNITS/ML VIAL SC SCH ×3 (08:12→20:40)
[2023-05-17] MEDS: HumuLIN 70/30 (300 UNITS/3 ML VIAL) SC SCH ×2 (08:13→21:22)
[2023-05-17 08:18] LABS: #Basophils 0.1 thou/uL (0.0-0.2); #Eosinphils 0.5 thou/uL (0.0-0.7); #Monocytes 0.8 thou/uL (0.11-0.59); #Neutrophils 9.3 thou/uL (1.40-6.50); %Basophils 0.7 % (0.0-1.0); %Eosinophils 3.3 % (0.0-10.0); %Lymphocytes 23.6 % (21.0-51.0); %Monocytes 5.7 % (0.0-10.0); %Neutrophils 66.3 % (42.0-75.0); Hematocrit 31.4 % (36.0-47.0); Hemoglobin 9.9 g/dL (12.0-16.0); Mean Corpuscular HGB CONC 31.5 g/dL (32.0-36.0); Mean Corpuscular Volume 88.7 fl (78.0-98.0); Mean Platelet Volume 10.5 fL (7.4-10.4); Platelet Count 285 10x3/uL (130-400); RBC Distribution Width 12.6 % (11.5-14.5); Red Blood Cell (RBC) Count 3.54 mill/uL (4.20-5.40); White Blood Cell (WBC) Count 14.1 10x3/uL (4.8-10.8)
[2023-05-17] MEDS: Acetaminophen 325 MG TAB PO PRN (08:49)
[2023-05-17] MEDS: Ondansetron ODT 4 MG TAB PO PRN (14:15)
[2023-05-17] MEDS ORDERED: Nicotine 14 MG PATCH TD PRN (15:11)
[2023-05-17] MEDS: Lidocaine 4% Patch TD SCH (19:22)
[2023-05-17] MEDS: Amlodipine 5 MG TAB PO SCH (20:37)
[2023-05-17] MEDS: Atorvastatin Calcium 20 MG TAB PO SCH (20:39)
[2023-05-17] MEDS: HYDROcodone/Acetaminophen 5/325 mg Tablet PO PRN (20:39)
[2023-05-18] MEDS: Ampicillin/Sulbactam 1.5 GM in Sodium Chloride 0.9% 100 ML IVPB SCH ×3 (01:53→14:28)
[2023-05-18] MEDS: Transdermal Patch Removal TOP SCH (04:00)
[2023-05-18] MEDS: Ondansetron ODT 4 MG TAB PO PRN (05:48)
[2023-05-18] MEDS: Ciprofloxacin 500 MG TAB PO SCH (05:48)
[2023-05-18] MEDS: HYDROcodone/Acetaminophen 5/325 mg Tablet PO PRN ×2 (05:49→12:49)
[2023-05-18] MEDS: PARoxetine 20 MG TAB PO SCH (08:11)
[2023-05-18] MEDS: Gabapentin 300 MG CAP PO SCH ×2 (08:11→15:57)
[2023-05-18] MEDS: Saccharomyces boulardii 250 MG CAP PO SCH (08:11)
[2023-05-18] MEDS: HumuLIN 70/30 (300 UNITS/3 ML VIAL) SC SCH (08:21)
[2023-05-18] MEDS: Heparin 5,000 UNITS/ML VIAL SC SCH ×2 (08:24→16:27)
[2023-05-18 17:28] VITALS: BP 124/61; TEMP 98.4
== END 2023-05-18 18:35 | disposition home or self-care (01) | DRG 638 ==
LOC: ERS 12:34 → MSONC 18:48 → OBSVTOIN 05-12 10:31
PROVIDERS: ADMIT Student in an Organized Health Care Education/Training Program; ATTEND Family Medicine
DX: E11.69 Type 2 diabetes mellitus with other specified complication (principal); L03.115 Cellulitis of right lower limb; M86.8X8 Other osteomyelitis, other site; N39.0 Urinary tract infection, site not specified; E11.621 Type 2 diabetes mellitus with foot ulcer; N17.9 Acute kidney failure, unspecified; E78.5 Hyperlipidemia, unspecified; E11.40 Type 2 diabetes mellitus with diabetic neuropathy, unspecified; F32.A Depression, unspecified; E11.65 Type 2 diabetes mellitus with hyperglycemia; N18.32 Chronic kidney disease, stage 3b; E11.51 Type 2 diabetes mellitus with diabetic peripheral angiopathy without gangrene; F17.210 Nicotine dependence, cigarettes, uncomplicated; E86.0 Dehydration; L97.519 Non-pressure chronic ulcer of other part of right foot with unspecified severity; E11.22 Type 2 diabetes mellitus with diabetic chronic kidney disease; F39 Unspecified mood [affective] disorder; Z79.899 Other long term (current) drug therapy; Z89.512 Acquired absence of left leg below knee; Z79.4 Long term (current) use of insulin
CPT/HCPCS: 36415; 36416; 80048; 80053; 81001; 83036; 83605; 85025; 86140; 96365; 96372; 96376; G0378; J0295; J1644; J1815; J2405; J2765; J3490; J7050; J7120; Q0162

== ENCOUNTER 2024-08-25 14:37 | Observation (INO) | payer OTHER ==
[2024-08-25 15:51] LABS: %Basophils 0.8 % (0.0-1.0); %Eosinophils 1.5 % (0.0-10.0); %Lymphocytes 23.9 % (21.0-51.0); %Monocytes 6.3 % (0.0-10.0); %Neutrophils 66.8 % (42.0-75.0); Hematocrit 31.5 % (36.0-47.0); Hemoglobin 9.4 g/dL (12.0-16.0); Mean Corpuscular HGB CONC 29.8 g/dL (32.0-36.0); Mean Corpuscular Hemoglobin 27.9 pg (27.0-31.0); Mean Corpuscular Volume 93.5 fL (78.0-98.0); Mean Platelet Volume 11.7 fL (7.4-10.4); Platelet Count 237 10x3/uL (130-400); RBC Distribution Width 15.2 % (11.5-14.5); Red Blood Cell (RBC) Count 3.37 mill/uL (4.20-5.40)
[2024-08-25 16:08] LABS: INR-International Normal Ratio 1.1; Prothrombin Time 14.1 sec (12.0-14.7)
[2024-08-25 16:09] LABS: PTT 59.4 sec (22.9-36.1)
[2024-08-25 16:15] LABS: ALT (SGPT) 13 U/L (Less than 34); AST (SGOT) 21 U/L (11-34); Albumin 2.8 g/dL (3.1-4.5); Alkaline Phosphatase 105 U/L (40-110); Anion Gap 14 mmol/L (10-20); BUN (Urea Nitrogen) 34 mg/dL (9.8-20.1); Bilirubin, Total 0.5 mg/dL (0.3-1.2); Calc. Creatinine Clearance 0 mL/min (70-130); Calcium 8.8 mg/dL (7.8-10.44); Carbon Dioxide 26 mmol/L (22-29); Chloride 105 mmol/L (98-107); Estimated GFR 9; Globulin 4.3 g/dL (2.4-3.5); Glucose 142 mg/dL (70-105); Potassium 4.8 mmol/L (3.5-5.1); Protein, Total 7.1 g/dL (6.0-8.3); Sodium 140 mmol/L (136-145)
[2024-08-25 18:35] VITALS: BMI 31.2
[2024-08-25] MEDS ORDERED: Glucagon 1 MG/ML KIT IM PRN (18:57)
[2024-08-25] MEDS ORDERED: Insulin Lispro 100 UNIT/ML 10 ML VIAL SC PRN (18:57)
[2024-08-25] MEDS ORDERED: Dextrose 5% in Water 1,000 ML IV PRN (18:57)
[2024-08-25] MEDS ORDERED: Dextrose 50% Abboject 50 ML SYRINGE SLOW IVP PRN (18:57)
[2024-08-25] MEDS: Pregabalin 50 MG CAP PO SCH (20:28)
[2024-08-25] MEDS: Calcium Carbonate 600 MG TAB PO SCH (20:28)
[2024-08-25] MEDS: traMADol HCl 50 MG TAB PO PRN (20:32)
[2024-08-26] MEDS ORDERED: EPINEPHrine 1 MG/ML VIAL ONE (06:24)
[2024-08-26] MEDS ORDERED: Heparin 10,000 UNITS/ 10 ML VIAL ONE (06:24)
[2024-08-26] MEDS ORDERED: Lidocaine 2% PF 5 ML VIAL ONE ×2 (06:25→06:48)
[2024-08-26] MEDS ORDERED: Bupivacaine 0.25% HCL 30 ML VIAL ONE (06:25)
[2024-08-26 06:41] LABS: Anion Gap 11 mmol/L (10-20); BUN (Urea Nitrogen) 40 mg/dL (9.8-20.1); Calc. Creatinine Clearance 14 mL/min (70-130); Calcium 8.3 mg/dL (7.8-10.44); Carbon Dioxide 26 mmol/L (22-29); Chloride 106 mmol/L (98-107); Estimated GFR 9; Glucose 106 mg/dL (70-105); Potassium 4.3 mmol/L (3.5-5.1); Sodium 139 mmol/L (136-145)
[2024-08-26] MEDS ORDERED: Etomidate 40 MG (20 mL) VIAL ONE (06:48)
[2024-08-26] MEDS ORDERED: fentaNYL 50 mcg/mL 1 mL Vial ONE (06:48)
[2024-08-26] MEDS ORDERED: Ondansetron PF 4 MG/2 ML Vial ONE (06:48)
[2024-08-26] MEDS ORDERED: Midazolam HCl 2 mg/2 ml Vial ONE (06:48)
[2024-08-26] MEDS ORDERED: Dexamethasone 20 MG/5 ML VIAL ONE (06:48)
[2024-08-26] MEDS ORDERED: PHENYLEPHRINE-NS 100 MCG/ML 10 ML SYRINGE ONE (06:49)
[2024-08-26] MEDS ORDERED: Glycopyrrolate 0.2 MG/ML 5 ML SYRINGE ONE (06:49)
[2024-08-26] MEDS ORDERED: CEFAZOLIN 2 GM VIAL ONE (07:06)
[2024-08-26] MEDS ORDERED: Sodium Chloride 0.9% 0 ML ONE (07:24)
[2024-08-26] MEDS ORDERED: Sodium Chloride 0.9% 100 ML ONE (09:04)
[2024-08-26] MEDS ORDERED: Phenylephrine 10 MG/ML VIAL ONE (09:05)
[2024-08-26 09:24] VITALS: BP 160/76; TEMP 97.5
[2024-08-26] MEDS: Ondansetron PF 4 MG/2 ML Vial IVP SCH (09:59)
[2024-08-26] MEDS: Calcitriol 0.25 MCG CAP PO SCH (10:03)
[2024-08-26] MEDS: PARoxetine 20 MG TAB PO SCH (10:03)
[2024-08-26] MEDS: Pantoprazole 40 MG DR.TAB PO SCH (10:03)
[2024-08-26] MEDS: Amlodipine 10 MG TAB PO SCH (10:05)
[2024-08-26] MEDS: HumuLIN 70/30 100 Unit/ml 10 ml Vial SC SCH (10:20)
[2024-08-26] MEDS: Insulin Lispro 100 UNIT/ML 10 ML VIAL SC PRN (13:00)
[2024-08-26] MEDS ORDERED: HumuLIN 70/30 100 Unit/ml 10 ml Vial SC SCH (17:00)
[2024-09-01] MEDS ORDERED: Ergocalciferol 1.25 MG(50,000 UNITS) CAP PO SCH (09:00)
== END 2024-08-26 15:47 | disposition home or self-care (01) ==
LOC: ERS 14:37 → T4-A 16:47
PROVIDERS: ADMIT Family Medicine; ATTEND Hospitalist
PROC: 05HN33Z Insertion of Infusion Device into Left Internal Jugular Vein, Percutaneous Approach (ICD-10-PCS; principal; 2024-08-26)
DX: T82.49XA Other complication of vascular dialysis catheter, initial encounter (principal); I13.2 Hypertensive heart and chronic kidney disease with heart failure and with stage 5 chronic kidney disease, or end stage renal disease; N18.6 End stage renal disease; I50.30 Unspecified diastolic (congestive) heart failure; E11.22 Type 2 diabetes mellitus with diabetic chronic kidney disease; E11.40 Type 2 diabetes mellitus with diabetic neuropathy, unspecified; D63.1 Anemia in chronic kidney disease; Z99.2 Dependence on renal dialysis; Z87.59 Personal history of other complications of pregnancy, childbirth and the puerperium; Z87.891 Personal history of nicotine dependence; Z89.512 Acquired absence of left leg below knee; Z79.4 Long term (current) use of insulin; Z79.899 Other long term (current) drug therapy; Y83.1 Surgical operation with implant of artificial internal device as the cause of abnormal reaction of the patient, or of later complication, without mention of misadventure at the time of the procedure
CPT/HCPCS: 36415; 36416; 71045; 80048; 80053; 85025; 85610; 85730; 86850; 86900; 86901; 96374; 99284; C1752; G0378; J0171; J0665; J1100; J1644; J1815; J2250; J2371; J2405; J3010

== ENCOUNTER 2025-06-02 16:16 | Emergency (ER) | payer OTHER, SELFPAY | END 2025-06-02 18:00 | disposition home or self-care (01) | LOC: ERS 16:16 | DX: T82.838A Hemorrhage due to vascular prosthetic devices, implants and grafts, initial encounter (principal); I12.0 Hypertensive chronic kidney disease with stage 5 chronic kidney disease or end stage renal disease; N18.6 End stage renal disease; F17.210 Nicotine dependence, cigarettes, uncomplicated; Z99.2 Dependence on renal dialysis | CPT/HCPCS: 99283 ==

== ENCOUNTER 2025-07-07 12:32 | Emergency (ER) | payer MEDICARE, SELFPAY | END 2025-07-07 14:08 | disposition home or self-care (01) | LOC: ERS 12:32 | DX: J06.9 Acute upper respiratory infection, unspecified (principal); H69.83 Other specified disorders of Eustachian tube, bilateral; E11.42 Type 2 diabetes mellitus with diabetic polyneuropathy; I10 Essential (primary) hypertension; F17.210 Nicotine dependence, cigarettes, uncomplicated; Z79.899 Other long term (current) drug therapy | CPT/HCPCS: 71046; 87428 ==